=== PATIENT | female | born 1965 | race Caucasian/White ===

== ENCOUNTER 2016-10-07 16:35 | Inpatient (IN) | payer OTHER ==
[2016-07-07 12:12] VITALS: Ht 162.6 cm; Wt 104.3 kg
[~2016-10-07] VITALS: Ht 162.6 cm; Wt 104.3 kg
[~2016-10-07 16:35] MED LIST: AMIL5TAB9; AMIL5TAB9 PO; CLON0.5T4 PO; COLC0.6T67; COLC0.6T67 PO; COLCHINE; CYCL-10 PO; CYCL-365 PO; CYCLOBENZAPINE; CYM30; CYM30 PO; DULO60CA41; FENT1PAT4; FENT1PAT6 TD; FERR236T; HYDR-1189 PO; HYDR-4100 PO; IRON1CAP17; IRON1CAP18; LORA-259 PO; LORA1TAB; MAGN400T10 PO; MAGN84TA4 PO; METR500T PO; MULT-1117 PO; MUPI1OIN4; NORCO5; POTA10TA79 PO; POTA20PA PO; POTA20PA4; POTA20TA83; PRAV40TA PO; PRAV40TA63; PRO40 PO; RANI-281 PO; SACC250C3 PO; SPIR25TA PO; SPIR50TA26 PO; TEMA30CA5 PO; VANC125C10 PO; VITD400 PO
[2016-10-07 16:37] VITALS: BP 121/80; PULSE 122; RESP 16; TEMP 97.8; O2SAT 98
[2016-10-07 17:51] LABS: MEAN CORPUSCULAR HEMOGLOBIN 28 pg (27-31); MEAN CORPUSCULAR HGB CONC 33 % (32-36); WHITE BLOOD COUNT (AUTO) 16.8 K/uL (4.8-10.8)
[2016-10-07 17:54] LABS: BASOPHILS # (AUTO) 0.4 K/uL (0.0-0.2); BASOPHILS % (AUTO) 2.1 % (0.0-2.0); EOSINOPHILS % (AUTO) 0.2 % (0.0-4.0); HEMATOCRIT 48.7 % (36-48); HEMOGLOBIN 15.9 g/dL (12.0-16.0); LYMPHOCYTES # (AUTO) 2.8 K/uL (1.0-5.5); MEAN CORPUSCULAR VOLUME 87 fL (79.0-98.0); MONOCYTES # (AUTO) 0.5 K/uL (0.0-1.0); MONOCYTES % (AUTO) 2.9 % (1.7-9.3); NEUTROPHILS # (AUTO) 13.1 K/uL (1.8-7.7); NEUTROPHILS % (AUTO) 77.8 % (40.0-70.0); PLATELET COUNT (AUTO) 440 K/uL (130-430); RED BLOOD CELL COUNT(AUTO) 5.61 MIL/uL (4.2-6.2); RED CELL DISTRIBUTION WIDTH 13.8 % (9.0-15.0)
[2016-10-07 18:11] LABS: ALBUMIN 4.4 g/dL (3.4-4.8); CALCIUM 10.5 mg/dL (8.4-11.0); CREATININE 1.33 mg/dL (0.55-1.30); POTASSIUM 4.5 mmol/L (3.5-5.1); TOTAL BILIRUBIN 0.8 mg/dL (0.0-1.0); TOTAL PROTEIN, SERUM 9.1 g/dL (6.4-8.3)
[2016-10-07] MEDS ORDERED: MORPHINE 4 MG/ML INJ. SYRINGE IVP ONE (19:00)
[2016-10-07] MEDS ORDERED: DIPHENHYDRAMINE INJ 50 MG/ML VIAL IVP ONE (19:00)
[2016-10-07] MEDS ORDERED: MAGNESIUM SULFATE 50 ML IV ONE (19:00)
[2016-10-07] MEDS ORDERED: NACL 0.9% 1,000 ML IV ONE (19:00)
[2016-10-07 19:50] LABS: BLOOD, URINE NEGATIVE (NEGATIVE); CLARITY/URINE SL CLOUDY (CLEAR); COLOR,URINE YELLOW (YELLOW); GLUCOSE,URINE NEGATIVE (NEGATIVE); KETONES,URINE TRACE (NEGATIVE); LEUKOCYTE ESTERASE ,URINE TRACE (NEGATIVE); NITRITE, URINE NEGATIVE (NEGATIVE); PH,URINE 6.5 (5.0-8.0); PROTEIN URINE NEGATIVE (NEGATIVE); UROBILINOGEN,URINE 0.2 (0.2-1.0)
[2016-10-07 20:05] LABS: BILIRUBIN,URINE NEGATIVE (NEGATIVE)
[2016-10-07 20:10] LABS: BACTERIA,URINE MANY /HPF (None Seen); RBC,URINE NONE SEEN /HPF (0-3)
[2016-10-07 20:11] LABS: MUCUS,URINE 2+ /LPF (None Seen)
[2016-10-07 22:16] VITALS: BP 138/82; PULSE 105; RESP 18; TEMP 98.7; O2SAT 98
[2016-10-07] MEDS ORDERED: LACTOBACILLUS RHAMNOSUS GG 1 CAP CAPSULE PO ONE (22:30)
[2016-10-07] MEDS: LR 1,000 ML IV SCH ×2 (22:45→23:19)
[2016-10-07] MEDS ORDERED: MORP15TA PO (23:01)
[2016-10-07] MEDS ORDERED: cefTRIAXone 1 GM IVPB PREMIX 50 ML IV ONE (23:14)
[2016-10-07] MEDS: cefTRIAXone 1 GM IVPB PREMIX 50 ML IV SCH (23:19)
[2016-10-07] MEDS: MORPHINE 4 MG/ML INJ. SYRINGE IVP PRN (23:20)
[2016-10-07] MEDS: DIPHENHYDRAMINE INJ 50 MG/ML VIAL IVP PRN (23:20)
[2016-10-07 23:58] VITALS: BP 130/77; PULSE 105; RESP 18; TEMP 97.8; O2SAT 98
[2016-10-08 02:20] VITALS: BP 130/77; PULSE 105; RESP 18; TEMP 97.8; O2SAT 98
[2016-10-08] MEDS: MORPHINE 4 MG/ML INJ. SYRINGE IVP PRN ×5 (03:55→20:56)
[2016-10-08] MEDS: DIPHENHYDRAMINE INJ 50 MG/ML VIAL IVP PRN ×4 (03:55→20:57)
[2016-10-08 03:56] VITALS: BP 127/63; PULSE 87; RESP 18; TEMP 98.6; O2SAT 96
[2016-10-08 07:28] LABS: BASOPHILS # (AUTO) 0.1 K/uL (0.0-0.2); BASOPHILS % (AUTO) 0.7 % (0.0-2.0); EOSINOPHILS # (AUTO) 0.2 K/uL (0.0-0.4); EOSINOPHILS % (AUTO) 1.5 % (0.0-4.0); HEMATOCRIT 40.6 % (36-48); HEMOGLOBIN 13.5 g/dL (12.0-16.0); LYMPHOCYTES # (AUTO) 4.5 K/uL (1.0-5.5); LYMPHOCYTES % (AUTO) 31.3 % (20.5-51.5); MEAN CORPUSCULAR HEMOGLOBIN 28 pg (27-31); MEAN CORPUSCULAR HGB CONC 33 % (32-36); MEAN CORPUSCULAR VOLUME 85 fL (79.0-98.0); MONOCYTES # (AUTO) 0.8 K/uL (0.0-1.0); MONOCYTES % (AUTO) 5.3 % (1.7-9.3); NEUTROPHILS # (AUTO) 8.7 K/uL (1.8-7.7); NEUTROPHILS % (AUTO) 61.2 % (40.0-70.0); PLATELET COUNT (AUTO) 372 K/uL (130-430); RED BLOOD CELL COUNT(AUTO) 4.76 MIL/uL (4.2-6.2); RED CELL DISTRIBUTION WIDTH 13.8 % (9.0-15.0); WHITE BLOOD COUNT (AUTO) 14.3 K/uL (4.8-10.8)
[2016-10-08 07:38] LABS: ALBUMIN 3.5 g/dL (3.4-4.8); CALCIUM 8.8 mg/dL (8.4-11.0); CREATININE 1.19 mg/dL (0.55-1.30); TOTAL BILIRUBIN 0.7 mg/dL (0.0-1.0); TOTAL PROTEIN, SERUM 7.2 g/dL (6.4-8.3)
[2016-10-08] MEDS: LR 1,000 ML IV SCH ×3 (08:02→23:01)
[2016-10-08 08:22] LABS: POTASSIUM 2.8 mmol/L (3.5-5.1)
[2016-10-08 08:42] VITALS: BP 103/59; PULSE 91; RESP 19; TEMP 96.7; O2SAT 98
[2016-10-08] MEDS: LACTOBACILLUS RHAMNOSUS GG 1 CAP CAPSULE PO SCH ×3 (09:00→21:01)
[2016-10-08] MEDS ORDERED: KCL 40 mEq in 100 mL (PREMIX) 100 ML IV ONE (10:30)
[2016-10-08 12:40] VITALS: BP 116/62; PULSE 89; RESP 18; TEMP 98.1; O2SAT 99
[2016-10-08] MEDS ORDERED: POTASSIUM CHLORIDE 40 MEQ, LIDOCAINE JECT 2% PF 100 MG 50 MG in NS 250 ML IV ONE (13:30)
[2016-10-08] MEDS ORDERED: MAGNESIUM PO SCH (14:30)
[2016-10-08] MEDS ORDERED: SPIRONOLACTONE 25 MG TABLET (ALDACTONE) PO ONE (14:45)
[2016-10-08] MEDS ORDERED: CYCLOBENZAPRINE HCL 10 MG TABLET (FLEXERIL) PO ONE (14:45)
[2016-10-08] MEDS ORDERED: CHOLECALCIFEROL (VITAMIN D3) 2,000 UNIT TABLET PO ONE (14:45)
[2016-10-08] MEDS ORDERED: POTASSIUM CHLORIDE 10 MEQ TAB.PRT.SR PO ONE (14:45)
[2016-10-08] MEDS ORDERED: DULoxetine HCL 30 MG CAPSULE.DR (CYMBALTA) PO ONE (14:45)
[2016-10-08] MEDS ORDERED: LORazepam 1 MG TABLET PO ONE (14:45)
[2016-10-08] MEDS ORDERED: [UNRECOGNIZED DRUG - OTHER] IV ONE ×4 (15:00)
[2016-10-08] MEDS ORDERED: POTASSIUM CHLORIDE IV ONE ×4 (15:00)
[2016-10-08] MEDS ORDERED: MAGNESIUM SULFATE IV ONE ×4 (15:00)
[2016-10-08] MEDS: MULTIVITAMINS TAB 1 TABLET PO SCH ×2 (15:38→20:59)
[2016-10-08] MEDS: aMILoride HCL 5 MG TABLET PO SCH ×2 (15:55→22:57)
[2016-10-08 16:27] VITALS: BP 120/68; PULSE 80; RESP 18; TEMP 97.9; O2SAT 99
[2016-10-08] MEDS: POTASSIUM CHLORIDE 10 MEQ TAB.PRT.SR PO SCH ×2 (16:48→21:01)
[2016-10-08] MEDS ORDERED: FLUCONAZOLE 100 MG TABLET (DIFLUCAN) PO ONE (19:15)
[2016-10-08 19:45] VITALS: BP 103/61; PULSE 97; RESP 15; TEMP 98.6; O2SAT 97
[2016-10-08] MEDS: CHOLECALCIFEROL (VITAMIN D-3) 400 UNIT TABLET PO SCH (21:00)
[2016-10-08] MEDS: SPIRONOLACTONE 25 MG TABLET (ALDACTONE) PO SCH (21:02)
[2016-10-08] MEDS: cefTRIAXone 1 GM IVPB PREMIX 50 ML IV SCH (21:04)
[2016-10-08] MEDS: LORazepam 1 MG TABLET PO SCH (22:57)
[2016-10-08] MEDS: TEMAZEPAM 15 MG CAPSULE PO SCH (22:57)
[2016-10-09 00:41] VITALS: BP 103/68; PULSE 91; RESP 16; TEMP 97.3; O2SAT 98
[2016-10-09] MEDS: MORPHINE 4 MG/ML INJ. SYRINGE IVP PRN ×6 (01:08→21:58)
[2016-10-09] MEDS: DIPHENHYDRAMINE INJ 50 MG/ML VIAL IVP PRN ×6 (01:08→21:55)
[2016-10-09 04:19] VITALS: BP 104/68; PULSE 86; RESP 17; TEMP 96.7; O2SAT 98
[2016-10-09 07:26] LABS: BASOPHILS # (AUTO) 0.1 K/uL (0.0-0.2); BASOPHILS % (AUTO) 0.7 % (0.0-2.0); EOSINOPHILS # (AUTO) 0.2 K/uL (0.0-0.4); EOSINOPHILS % (AUTO) 2.4 % (0.0-4.0); HEMATOCRIT 35.5 % (36-48); HEMOGLOBIN 11.6 g/dL (12.0-16.0); LYMPHOCYTES # (AUTO) 3.6 K/uL (1.0-5.5); LYMPHOCYTES % (AUTO) 40.5 % (20.5-51.5); MEAN CORPUSCULAR HEMOGLOBIN 29 pg (27-31); MEAN CORPUSCULAR HGB CONC 33 % (32-36); MEAN CORPUSCULAR VOLUME 87 fL (79.0-98.0); MONOCYTES # (AUTO) 0.5 K/uL (0.0-1.0); MONOCYTES % (AUTO) 6.1 % (1.7-9.3); NEUTROPHILS # (AUTO) 4.5 K/uL (1.8-7.7); NEUTROPHILS % (AUTO) 50.3 % (40.0-70.0); PLATELET COUNT (AUTO) 313 K/uL (130-430); RED BLOOD CELL COUNT(AUTO) 4.08 MIL/uL (4.2-6.2); RED CELL DISTRIBUTION WIDTH 13.9 % (9.0-15.0); WHITE BLOOD COUNT (AUTO) 8.9 K/uL (4.8-10.8)
[2016-10-09 07:30] VITALS: BP 92/52; PULSE 76; RESP 18; TEMP 96.9; O2SAT 98
[2016-10-09 07:52] LABS: CALCIUM 8.4 mg/dL (8.4-11.0); CREATININE 0.9 mg/dL (0.55-1.30); PHOSPHORUS 3.4 mg/dL (2.7-4.5); TOTAL BILIRUBIN 0.3 mg/dL (0.0-1.0); TOTAL PROTEIN, SERUM 6.1 g/dL (6.4-8.3)
[2016-10-09] MEDS: LR 1,000 ML IV SCH ×3 (07:53→19:30)
[2016-10-09] MEDS: SPIRONOLACTONE 25 MG TABLET (ALDACTONE) PO SCH ×2 (09:00→21:00)
[2016-10-09] MEDS ORDERED: fentaNYL 50 MCG/HR PATCH TD SCH (09:00)
[2016-10-09] MEDS: CHOLECALCIFEROL (VITAMIN D-3) 400 UNIT TABLET PO SCH ×2 (09:00→21:00)
[2016-10-09] MEDS: aMILoride HCL 5 MG TABLET PO SCH ×2 (09:00→21:00)
[2016-10-09] MEDS: MULTIVITAMINS TAB 1 TABLET PO SCH ×3 (09:14→21:01)
[2016-10-09] MEDS: COLCHICINE 0.6 MG TABLET PO SCH (09:14)
[2016-10-09] MEDS: FLUCONAZOLE 100 MG TABLET (DIFLUCAN) PO SCH (09:15)
[2016-10-09] MEDS: CYCLOBENZAPRINE HCL 10 MG TABLET (FLEXERIL) PO SCH (09:15)
[2016-10-09] MEDS: DULoxetine HCL 30 MG CAPSULE.DR (CYMBALTA) PO SCH (09:17)
[2016-10-09] MEDS: POTASSIUM CHLORIDE 10 MEQ TAB.PRT.SR PO SCH ×4 (09:17→21:01)
[2016-10-09] MEDS: LACTOBACILLUS RHAMNOSUS GG 1 CAP CAPSULE PO SCH ×3 (09:17→21:03)
[2016-10-09] MEDS: LORazepam 1 MG TABLET PO SCH ×2 (09:18→21:02)
[2016-10-09 12:22] VITALS: BP 91/51; PULSE 85; RESP 19; TEMP 96.6; O2SAT 100
[2016-10-09 16:00] VITALS: BP 94/52; PULSE 68; RESP 17; TEMP 97; O2SAT 99
[2016-10-09] MEDS ORDERED: MAGNESIUM SULFATE 4 GM in D5W 250 ML IV ONE ×2 (17:15→21:15)
[2016-10-09 20:42] VITALS: BP 95/51; PULSE 83; RESP 17; TEMP 99.3; O2SAT 99
[2016-10-09] MEDS: TEMAZEPAM 15 MG CAPSULE PO SCH (21:03)
[2016-10-09] MEDS: cefTRIAXone 1 GM IVPB PREMIX 50 ML IV SCH (23:04)
[2016-10-10 00:19] VITALS: BP 96/53; PULSE 18; RESP 18; TEMP 98.3; O2SAT 96
[2016-10-10] MEDS: MORPHINE 4 MG/ML INJ. SYRINGE IVP PRN ×6 (01:47→21:52)
[2016-10-10] MEDS: DIPHENHYDRAMINE INJ 50 MG/ML VIAL IVP PRN ×6 (01:48→21:45)
[2016-10-10 04:20] VITALS: BP 101/65; PULSE 86; RESP 17; TEMP 98.3; O2SAT 99
[2016-10-10] MEDS: ONDANSETRON HCL 4 MG/2 ML VIAL IVP PRN ×4 (05:59→21:52)
[2016-10-10] MEDS: LR 1,000 ML IV SCH ×3 (06:00→21:49)
[2016-10-10 07:13] LABS: BASOPHILS # (AUTO) 0.1 K/uL (0.0-0.2); BASOPHILS % (AUTO) 0.8 % (0.0-2.0); EOSINOPHILS # (AUTO) 0.3 K/uL (0.0-0.4); EOSINOPHILS % (AUTO) 3.3 % (0.0-4.0); HEMOGLOBIN 11.4 g/dL (12.0-16.0); LYMPHOCYTES # (AUTO) 4.3 K/uL (1.0-5.5); LYMPHOCYTES % (AUTO) 42.4 % (20.5-51.5); MEAN CORPUSCULAR HEMOGLOBIN 28 pg (27-31); MEAN CORPUSCULAR HGB CONC 33 % (32-36); MEAN CORPUSCULAR VOLUME 86 fL (79.0-98.0); MONOCYTES # (AUTO) 0.8 K/uL (0.0-1.0); MONOCYTES % (AUTO) 7.6 % (1.7-9.3); NEUTROPHILS # (AUTO) 4.7 K/uL (1.8-7.7); NEUTROPHILS % (AUTO) 45.9 % (40.0-70.0); PLATELET COUNT (AUTO) 307 K/uL (130-430); RED BLOOD CELL COUNT(AUTO) 4.06 MIL/uL (4.2-6.2); RED CELL DISTRIBUTION WIDTH 13.8 % (9.0-15.0); WHITE BLOOD COUNT (AUTO) 10.3 K/uL (4.8-10.8)
[2016-10-10 07:31] LABS: CALCIUM 8.4 mg/dL (8.4-11.0); CREATININE 0.91 mg/dL (0.55-1.30); FREE T4 (FREE THYROXINE) 0.8 ng/dL (0.6-1.6); PHOSPHORUS 3.4 mg/dL (2.7-4.5); POTASSIUM 3.3 mmol/L (3.5-5.1); THYROID STIMULATING HORMONE 2.05 uIu/mL (0.34-4.82)
[2016-10-10] MEDS: POTASSIUM CHLORIDE 10 MEQ TAB.PRT.SR PO SCH ×4 (08:29→21:46)
[2016-10-10] MEDS: SPIRONOLACTONE 25 MG TABLET (ALDACTONE) PO SCH ×2 (08:29→21:48)
[2016-10-10] MEDS: FLUCONAZOLE 100 MG TABLET (DIFLUCAN) PO SCH (08:30)
[2016-10-10] MEDS: MULTIVITAMINS TAB 1 TABLET PO SCH ×3 (08:30→21:47)
[2016-10-10] MEDS: LACTOBACILLUS RHAMNOSUS GG 1 CAP CAPSULE PO SCH ×3 (08:30→21:46)
[2016-10-10] MEDS: DULoxetine HCL 30 MG CAPSULE.DR (CYMBALTA) PO SCH (08:30)
[2016-10-10] MEDS: COLCHICINE 0.6 MG TABLET PO SCH (08:30)
[2016-10-10] MEDS: CYCLOBENZAPRINE HCL 10 MG TABLET (FLEXERIL) PO SCH (08:31)
[2016-10-10] MEDS: LORazepam 1 MG TABLET PO SCH ×2 (08:31→21:47)
[2016-10-10 08:34] VITALS: BP 112/62; PULSE 87; RESP 14; TEMP 97; O2SAT 98
[2016-10-10] MEDS: aMILoride HCL 5 MG TABLET PO SCH ×2 (09:53→21:50)
[2016-10-10] MEDS ORDERED: CHOLECALCIFEROL (VITAMIN D3) 2,000 UNIT TABLET PO ONE (10:00)
[2016-10-10 12:36] VITALS: BP 111/52; PULSE 89; RESP 16; TEMP 96.4; O2SAT 96
[2016-10-10] MEDS: MAGNESIUM SULFATE IV SCH ×8 (17:08→21:45)
[2016-10-10] MEDS: [UNRECOGNIZED DRUG - OTHER] IV SCH ×8 (17:08→21:45)
[2016-10-10] MEDS: POTASSIUM CHLORIDE IV SCH ×8 (17:08→21:45)
[2016-10-10 17:30] VITALS: BP 104/47; PULSE 90; RESP 16; TEMP 96; O2SAT 97
[2016-10-10 20:50] VITALS: BP 103/68; PULSE 81; RESP 16; TEMP 97.5; O2SAT 96
[2016-10-10] MEDS: TEMAZEPAM 15 MG CAPSULE PO SCH (21:46)
[2016-10-10] MEDS: CHOLECALCIFEROL (VITAMIN D3) 2,000 UNIT TABLET PO SCH (21:47)
[2016-10-10] MEDS: cefTRIAXone 1 GM IVPB PREMIX 50 ML IV SCH (21:51)
[2016-10-11 00:29] VITALS: BP 122/72; PULSE 88; RESP 22; TEMP 97.6; O2SAT 98
[2016-10-11] MEDS: ONDANSETRON HCL 4 MG/2 ML VIAL IVP PRN ×5 (01:45→20:58)
[2016-10-11] MEDS: MORPHINE 4 MG/ML INJ. SYRINGE IVP PRN ×5 (01:46→21:00)
[2016-10-11] MEDS: DIPHENHYDRAMINE INJ 50 MG/ML VIAL IVP PRN ×4 (04:01→20:59)
[2016-10-11 06:27] VITALS: BP 118/68; PULSE 70; RESP 20; TEMP 97.9; O2SAT 98
[2016-10-11 07:57] VITALS: BP 116/78; PULSE 77; RESP 20; TEMP 97.2; O2SAT 97
[2016-10-11 08:22] LABS: ALBUMIN 3.3 g/dL (3.4-4.8); CALCIUM 8.7 mg/dL (8.4-11.0); CREATININE 0.96 mg/dL (0.55-1.30); POTASSIUM 4.9 mmol/L (3.5-5.1); TOTAL BILIRUBIN 0.2 mg/dL (0.0-1.0); TOTAL PROTEIN, SERUM 6.1 g/dL (6.4-8.3)
[2016-10-11] MEDS: LR 1,000 ML IV SCH ×3 (09:42→17:37)
[2016-10-11] MEDS: CYCLOBENZAPRINE HCL 10 MG TABLET (FLEXERIL) PO SCH (09:43)
[2016-10-11] MEDS: POTASSIUM CHLORIDE 10 MEQ TAB.PRT.SR PO SCH ×4 (09:43→21:01)
[2016-10-11] MEDS: MULTIVITAMINS TAB 1 TABLET PO SCH ×3 (09:43→21:00)
[2016-10-11] MEDS: LACTOBACILLUS RHAMNOSUS GG 1 CAP CAPSULE PO SCH ×3 (09:43→21:01)
[2016-10-11] MEDS: FLUCONAZOLE 100 MG TABLET (DIFLUCAN) PO SCH (09:44)
[2016-10-11] MEDS: COLCHICINE 0.6 MG TABLET PO SCH (09:44)
[2016-10-11] MEDS: SPIRONOLACTONE 25 MG TABLET (ALDACTONE) PO SCH ×2 (09:44→21:00)
[2016-10-11] MEDS: DULoxetine HCL 30 MG CAPSULE.DR (CYMBALTA) PO SCH (09:44)
[2016-10-11] MEDS: CHOLECALCIFEROL (VITAMIN D3) 2,000 UNIT TABLET PO SCH ×2 (09:44→21:01)
[2016-10-11] MEDS: LORazepam 1 MG TABLET PO SCH ×2 (09:45→21:00)
[2016-10-11] MEDS: aMILoride HCL 5 MG TABLET PO SCH ×2 (09:53→21:01)
[2016-10-11 12:00] VITALS: BP 111/80; PULSE 90; RESP 20; TEMP 98.8; O2SAT 98
[2016-10-11] MEDS ORDERED: MAGNESIUM SULFATE IN WATER 100 ML IV ONE (17:00)
[2016-10-11] MEDS ORDERED: CYANOCOBALAMIN 1000 MCG/ML VIAL IM ONE (17:15)
[2016-10-11 19:39] VITALS: BP 117/62; PULSE 68; RESP 18; TEMP 98.2; O2SAT 97
[2016-10-11] MEDS: TEMAZEPAM 15 MG CAPSULE PO SCH (20:59)
== END 2016-10-11 21:20 | disposition home or self-care (01) | DRG 872 ==
LOC: SED 16:35 → SMU 21:44
PROVIDERS: ADMIT Internal Medicine; ATTEND Internal Medicine
DX: A41.9 Sepsis, unspecified organism (principal); N39.0 Urinary tract infection, site not specified; E66.9 Obesity, unspecified; E83.42 Hypomagnesemia; E86.0 Dehydration; E87.6 Hypokalemia; F32.9 Major depressive disorder, single episode, unspecified; F41.9 Anxiety disorder, unspecified; I10 Essential (primary) hypertension; M79.7 Fibromyalgia; R48.8 Other symbolic dysfunctions; Z88.0 Allergy status to penicillin; Z88.8 Allergy status to other drugs, medicaments and biological substances; Z91.018 Allergy to other foods; Z79.899 Other long term (current) drug therapy; Z68.39 Body mass index [BMI] 39.0-39.9, adult
CPT/HCPCS: 36415; 80048; 80053; 80061; 81000-TC; 81025; 83605; 83735-TC; 84100-TC; 84439; 84443-TC; 85025; 86710; 87040-TC; 87086; 96365; 96375; 99285; J0696; J1200; J2270; J2405; J3420; J3475; J3480; J7030; J7050; J7060; J7120

== ENCOUNTER 2016-10-20 16:08 | Emergency (ER) | payer OTHER ==
[2016-07-07 12:12] VITALS: Ht 162.6 cm; Wt 104.3 kg
[~2016-10-20] VITALS: Ht 162.6 cm; Wt 104.3 kg
[~2016-10-20 16:08] MED LIST changes: +MORP15TA PO
--- NOTE | 2016-10-20 16:10 | NUR ---
NOTIFIED CHARGE NURSE HAKAN FOR TRIAGE.
[2016-10-20 16:30] LABS: BASOPHILS # (AUTO) 0.1 K/uL (0.0-0.2); BASOPHILS % (AUTO) 1.1 % (0.0-2.0); EOSINOPHILS # (AUTO) 0.2 K/uL (0.0-0.4); HEMATOCRIT 41.9 % (36-48); HEMOGLOBIN 13.7 g/dL (12.0-16.0); LYMPHOCYTES # (AUTO) 2.9 K/uL (1.0-5.5); LYMPHOCYTES % (AUTO) 26.8 % (20.5-51.5); MEAN CORPUSCULAR HEMOGLOBIN 28 pg (27-31); MEAN CORPUSCULAR HGB CONC 33 % (32-36); MEAN CORPUSCULAR VOLUME 86 fL (79.0-98.0); MONOCYTES # (AUTO) 0.3 K/uL (0.0-1.0); MONOCYTES % (AUTO) 3.2 % (1.7-9.3); NEUTROPHILS # (AUTO) 7.4 K/uL (1.8-7.7); NEUTROPHILS % (AUTO) 66.9 % (40.0-70.0); PLATELET COUNT (AUTO) 337 K/uL (130-430); RED BLOOD CELL COUNT(AUTO) 4.87 MIL/uL (4.2-6.2); WHITE BLOOD COUNT (AUTO) 10.9 K/uL (4.8-10.8)
[2016-10-20 16:51] LABS: CALCIUM 9.6 mg/dL (8.4-11.0); CREATININE 0.9 mg/dL (0.55-1.30); POTASSIUM 4.1 mmol/L (3.5-5.1)
[2016-10-20 16:55] LABS: PHOSPHORUS 3.3 mg/dL (2.7-4.5); TOTAL BILIRUBIN 0.6 mg/dL (0.0-1.0); TOTAL PROTEIN, SERUM 8.1 g/dL (6.4-8.3)
--- NOTE | 2016-10-20 17:00 | NUR ---
Patient to ER bed H1 to gown for evaluation. Side rails up.
[2016-10-20 17:01] VITALS: BP 115/75; PULSE 100; RESP 18; TEMP 98.3; O2SAT 94
--- NOTE | 2016-10-20 17:05 | NUR ---
Pt brought by self, A&Ox4, pt c/o generalized weakness, leg cramping, VSS, per pt she was sent by Dr Mota due to abn labs, cap refill <3, denies chest pain, denies N/V
--- NOTE | 2016-10-20 17:17 | NUR ---
Dr Barber at bedside examining patient
[2016-10-20 17:27] LABS: BILIRUBIN,URINE NEGATIVE (NEGATIVE); BLOOD, URINE NEGATIVE (NEGATIVE); CLARITY/URINE CLEAR (CLEAR); COLOR,URINE YELLOW (YELLOW); GLUCOSE,URINE NEGATIVE (NEGATIVE); KETONES,URINE NEGATIVE (NEGATIVE); LEUKOCYTE ESTERASE ,URINE NEGATIVE (NEGATIVE); NITRITE, URINE NEGATIVE (NEGATIVE); PROTEIN URINE NEGATIVE (NEGATIVE); UROBILINOGEN,URINE 0.2 (0.2-1.0)
[2016-10-20] MEDS ORDERED: MORPHINE 4 MG/ML INJ. SYRINGE IVP ONE ×2 (17:30→21:45)
[2016-10-20] MEDS ORDERED: MAGNESIUM SULFATE 50 ML IV ONE (17:30)
[2016-10-20] MEDS ORDERED: DIPHENHYDRAMINE INJ 50 MG/ML VIAL IVP ONE ×3 (17:30→22:00)
[2016-10-20] MEDS ORDERED: MAGNESIUM SULFATE 4 GM in D5W 250 ML IV ONE (17:30)
--- NOTE | 2016-10-20 20:23 | NUR ---
Pt on stable condition, VSS, PT denie pain or discomfort at this time.
--- NOTE | 2016-10-20 20:45 | NUR ---
Pt requested something to eat, sandwich and cranberry juice given to patient
[2016-10-20 23:20] VITALS: BP 125/60; PULSE 100; RESP 18; TEMP 98.3; O2SAT 94
--- NOTE | 2016-10-20 23:20 | NUR ---
Patient given written and verbal discharge instructions and verbalizes understanding. ER MD discussed with patient the results and treatment provided. Patient in stable condition. No acute distress or SOB noted upon discharge. ID arm band removed. IV catheter removed intact and dressing applied, no active bleeding. Opportunity for questions provided and answered.
== END 2016-10-20 23:20 | disposition home or self-care (01) ==
LOC: SED 16:08
DX: E83.42 Hypomagnesemia (principal); I10 Essential (primary) hypertension; M10.9 Gout, unspecified; Z88.0 Allergy status to penicillin; Z91.018 Allergy to other foods
CPT/HCPCS: 36415; 80053; 81003; 83735; 84100; 84703; 85025; 96374; 96375; 96376; 99284; J1200; J2270; J3475; J7060

== ENCOUNTER 2016-10-29 19:54 | Emergency (ER) | payer OTHER ==
[2016-07-07 12:12] VITALS: Ht 162.6 cm; Wt 104.3 kg
[~2016-10-29] VITALS: Ht 162.6 cm; Wt 104.3 kg
[2016-10-29 20:24] VITALS: BP 115/73; PULSE 111; RESP 16; TEMP 98; O2SAT 95
[2016-10-29] MEDS ORDERED: KETOROLAC TROMETHAMINE 30 MG VIAL IVP ONE (22:30)
[2016-10-29] MEDS ORDERED: NACL 0.9% 1,000 ML IV ONE (22:30)
[2016-10-29 22:44] LABS: BILIRUBIN,URINE NEGATIVE (NEGATIVE); BLOOD, URINE NEGATIVE (NEGATIVE); CLARITY/URINE CLEAR (CLEAR); COLOR,URINE YELLOW (YELLOW); GLUCOSE,URINE NEGATIVE (NEGATIVE); KETONES,URINE NEGATIVE (NEGATIVE); LEUKOCYTE ESTERASE ,URINE NEGATIVE (NEGATIVE); NITRITE, URINE NEGATIVE (NEGATIVE); PH,URINE 6.5 (5.0-8.0); PROTEIN URINE NEGATIVE (NEGATIVE); UROBILINOGEN,URINE 0.2 (0.2-1.0)
[2016-10-29] MEDS ORDERED: MAGNESIUM SULFATE 50 ML IV ONE (22:45)
[2016-10-29] MEDS ORDERED: DIPHENHYDRAMINE INJ 50 MG/ML VIAL IVP ONE (22:45)
[2016-10-29 22:54] LABS: BASOPHILS # (AUTO) 0.2 K/uL (0.0-0.2); BASOPHILS % (AUTO) 1.7 % (0.0-2.0); EOSINOPHILS # (AUTO) 0.3 K/uL (0.0-0.4); EOSINOPHILS % (AUTO) 2.5 % (0.0-4.0); HEMATOCRIT 38.6 % (36-48); HEMOGLOBIN 12.9 g/dL (12.0-16.0); LYMPHOCYTES # (AUTO) 3.7 K/uL (1.0-5.5); LYMPHOCYTES % (AUTO) 31.6 % (20.5-51.5); MEAN CORPUSCULAR HEMOGLOBIN 28 pg (27-31); MEAN CORPUSCULAR HGB CONC 33 % (32-36); MEAN CORPUSCULAR VOLUME 85 fL (79.0-98.0); MONOCYTES # (AUTO) 0.9 K/uL (0.0-1.0); MONOCYTES % (AUTO) 7.4 % (1.7-9.3); NEUTROPHILS # (AUTO) 6.5 K/uL (1.8-7.7); NEUTROPHILS % (AUTO) 56.8 % (40.0-70.0); PLATELET COUNT (AUTO) 353 K/uL (130-430); RED BLOOD CELL COUNT(AUTO) 4.53 MIL/uL (4.2-6.2); WHITE BLOOD COUNT (AUTO) 11.6 K/uL (4.8-10.8)
[2016-10-29 23:01] LABS: CALCIUM 9.1 mg/dL (8.4-11.0); CREATININE 1.11 mg/dL (0.55-1.30); POTASSIUM 4.6 mmol/L (3.5-5.1)
[2016-10-29 23:05] LABS: TOTAL BILIRUBIN 0.3 mg/dL (0.0-1.0); URIC ACID 5.3 mg/dL (2.4-7.0)
[2016-10-29] MEDS ORDERED: MORP15TA PO (23:16)
[2016-10-29] MEDS ORDERED: COLC0.6T67 PO (23:18)
[2016-10-29 23:31] LABS: ERYTHROCYTE SEDIMENTATION RATE 19 MM/HR (0-20)
[2016-10-30 02:24] VITALS: BP 124/68; PULSE 104; RESP 16; TEMP 98; O2SAT 95
== END 2016-10-30 00:20 | disposition home or self-care (01) ==
LOC: SED 20:00
DX: G89.4 Chronic pain syndrome (principal); M25.562 Pain in left knee; M25.561 Pain in right knee; E83.42 Hypomagnesemia; R48.8 Other symbolic dysfunctions; I10 Essential (primary) hypertension; M10.9 Gout, unspecified; Z88.0 Allergy status to penicillin; Z91.02 Food additives allergy status; Z79.899 Other long term (current) drug therapy
CPT/HCPCS: 36415; 80053; 81003; 83735; 84550; 85025; 85651; 96365; 96375; 99284; J1200; J1885; J3475; J7030

== ENCOUNTER 2016-11-07 21:45 | Emergency (ER) | payer OTHER ==
[2016-07-07 12:12] VITALS: Ht 162.6 cm; Wt 106.6 kg
[~2016-11-07] VITALS: Ht 162.6 cm; Wt 106.6 kg
[2016-11-07 21:50] VITALS: BP 149/77; PULSE 109; RESP 16; TEMP 97.7; O2SAT 97
--- NOTE | 2016-11-07 21:50 | NUR ---
Patient triaged and placed in waiting room. VSS and patient appears in no acute distress at this time. Accompanied by self, awaiting available bed, and MD notified of need for MSE.
--- NOTE | 2016-11-08 | NUR ---
Patient to ER bed 4 to gown for evaluation. Side rails up.
--- NOTE | 2016-11-08 00:01 | NUR ---
PT IS AOX 4, C/O BOTH LOWER LEG PAIN WITH PAIN LEVEL OF 9/10. PER PT, THAT HER LEGS IS CRAMPING.
--- NOTE | 2016-11-08 00:10 | NUR ---
ER at bedside examining patient.
[2016-11-08] MEDS ORDERED: NACL 0.9% 1,000 ML IV ONE (00:27)
[2016-11-08] MEDS ORDERED: MORPHINE 4 MG/ML INJ. SYRINGE IVP ONE ×3 (00:30→02:15)
[2016-11-08] MEDS ORDERED: ONDANSETRON HCL 4 MG/2 ML VIAL IVP ONE (00:30)
[2016-11-08] MEDS ORDERED: DIPHENHYDRAMINE INJ 50 MG/ML VIAL IVP ONE (00:30)
[2016-11-08 00:57] LABS: BASOPHILS # (AUTO) 0.2 K/uL (0.0-0.2); BASOPHILS % (AUTO) 1.2 % (0.0-2.0); EOSINOPHILS # (AUTO) 0.3 K/uL (0.0-0.4); EOSINOPHILS % (AUTO) 2.6 % (0.0-4.0); HEMATOCRIT 37.8 % (36-48); HEMOGLOBIN 12.6 g/dL (12.0-16.0); LYMPHOCYTES # (AUTO) 3.9 K/uL (1.0-5.5); LYMPHOCYTES % (AUTO) 30.6 % (20.5-51.5); MEAN CORPUSCULAR HEMOGLOBIN 29 pg (27-31); MEAN CORPUSCULAR HGB CONC 34 % (32-36); MEAN CORPUSCULAR VOLUME 86 fL (79.0-98.0); MONOCYTES # (AUTO) 0.7 K/uL (0.0-1.0); MONOCYTES % (AUTO) 5.6 % (1.7-9.3); NEUTROPHILS # (AUTO) 7.7 K/uL (1.8-7.7); PLATELET COUNT (AUTO) 321 K/uL (130-430); RED BLOOD CELL COUNT(AUTO) 4.42 MIL/uL (4.2-6.2); WHITE BLOOD COUNT (AUTO) 12.8 K/uL (4.8-10.8)
[2016-11-08 01:23] LABS: CALCIUM 8.7 mg/dL (8.4-11.0); CREATININE 0.93 mg/dL (0.55-1.30); POTASSIUM 4.1 mmol/L (3.5-5.1)
[2016-11-08 01:27] LABS: ALBUMIN 3.7 g/dL (3.4-4.8); TOTAL BILIRUBIN 0.3 mg/dL (0.0-1.0); TOTAL PROTEIN, SERUM 7.2 g/dL (6.4-8.3)
[2016-11-08 02:40] VITALS: BP 132/64; PULSE 86; RESP 18; TEMP 97.7; O2SAT 97
--- NOTE | 2016-11-08 02:40 | NUR ---
Patient given written and verbal discharge instructions and verbalizes understanding. ER MD discussed with patient the results and treatment provided. Patient in stable condition. ID arm band removed. IV catheter removed intact and dressing applied, no active bleeding. Rx of BENADRYL ALLERGY 25 MG LIQUI-GEL CAPSULE given. Patient educated on pain management and to follow up with PMD. Pain Scale 0/10. Opportunity for questions provided and answered.
[2016-11-08 03:18] LABS: BILIRUBIN,URINE NEGATIVE (NEGATIVE); BLOOD, URINE NEGATIVE (NEGATIVE); CLARITY/URINE CLEAR (CLEAR); COLOR,URINE YELLOW (YELLOW); GLUCOSE,URINE NEGATIVE (NEGATIVE); KETONES,URINE NEGATIVE (NEGATIVE); LEUKOCYTE ESTERASE ,URINE NEGATIVE (NEGATIVE); NITRITE, URINE NEGATIVE (NEGATIVE); PH,URINE 5.5 (5.0-8.0); PROTEIN URINE NEGATIVE (NEGATIVE); UROBILINOGEN,URINE 0.2 (0.2-1.0)
== END 2016-11-08 02:40 | disposition home or self-care (01) ==
LOC: SED 21:45
DX: R25.2 Cramp and spasm (principal); R48.8 Other symbolic dysfunctions; I10 Essential (primary) hypertension; J44.9 Chronic obstructive pulmonary disease, unspecified; M10.9 Gout, unspecified; Z88.0 Allergy status to penicillin; Z91.02 Food additives allergy status; Z79.899 Other long term (current) drug therapy
CPT/HCPCS: 36415; 80053; 81003; 83735; 85025; 96365; 96375; 99284; J1200; J2270; J2405; J7030; 96361

== ENCOUNTER 2016-11-16 20:26 | Emergency (ER) | payer OTHER ==
[~2016-11-16] VITALS: Ht 162.6 cm; Wt 108.9 kg
[2016-11-16 20:26] VITALS: BP_SYST 121
[~2016-11-16 20:26] MED LIST changes: -AMIL5TAB9; -CLON0.5T4 PO; -COLC0.6T67; -COLCHINE; -CYCL-10 PO; -CYCLOBENZAPINE; -CYM30; -DULO60CA41; -FENT1PAT4; -FERR236T; -HYDR-1189 PO; -HYDR-4100 PO; -IRON1CAP18; -LORA1TAB; -MAGN400T10 PO; -METR500T PO; -MUPI1OIN4; -NORCO5; -POTA20PA PO; -POTA20PA4; -POTA20TA83; -PRAV40TA PO; -PRAV40TA63; -PRO40 PO; -SPIR25TA PO; -VANC125C10 PO
--- NOTE | 2016-11-16 20:42 | NUR ---
Patient to ER bed 4 to gown for evaluation. Side rails up. Report given to FILIBERTO HUNG.
--- NOTE | 2016-11-16 20:50 | NUR ---
Pt presents to ED with c/o bilateral lower legs pain 02/14, spasm r/t gittleman syndrome per pt. Pt stated that she fell and hurted her legs a few days ago. ROM present at BLE, pedal pulse WNL, pt ambulatory. A&Ox4, denies SOB or chestpain, denies N/V/D. Will continue to monitor
--- NOTE | 2016-11-16 21:53 | NUR ---
MD chacon at bedside examining pt
[2016-11-16] MEDS ORDERED: NACL 0.9% 1,000 ML IV ONE (21:57)
[2016-11-16] MEDS ORDERED: DIPHENHYDRAMINE INJ 50 MG/ML VIAL IVP ONE ×2 (22:00→23:15)
[2016-11-16] MEDS ORDERED: MAGNESIUM SULFATE 1 GM/2 ML VIAL IVP ONE (22:00)
[2016-11-16] MEDS ORDERED: MORPHINE 4 MG/ML INJ. SYRINGE IVP ONE ×2 (22:00→23:15)
[2016-11-16 22:08] LABS: BILIRUBIN,URINE NEGATIVE (NEGATIVE); BLOOD, URINE NEGATIVE (NEGATIVE); CLARITY/URINE CLEAR (CLEAR); COLOR,URINE YELLOW (YELLOW); GLUCOSE,URINE NEGATIVE (NEGATIVE); KETONES,URINE NEGATIVE (NEGATIVE); LEUKOCYTE ESTERASE ,URINE NEGATIVE (NEGATIVE); NITRITE, URINE NEGATIVE (NEGATIVE); PH,URINE 5.5 (5.0-8.0); PROTEIN URINE NEGATIVE (NEGATIVE); UROBILINOGEN,URINE 0.2 (0.2-1.0)
[2016-11-16 22:29] LABS: BASOPHILS # (AUTO) 0.1 K/uL (0.0-0.2); BASOPHILS % (AUTO) 0.9 % (0.0-2.0); EOSINOPHILS # (AUTO) 0.3 K/uL (0.0-0.4); EOSINOPHILS % (AUTO) 2.6 % (0.0-4.0); HEMATOCRIT 36.1 % (36-48); HEMOGLOBIN 12.3 g/dL (12.0-16.0); LYMPHOCYTES # (AUTO) 3.6 K/uL (1.0-5.5); MEAN CORPUSCULAR HEMOGLOBIN 29 pg (27-31); MEAN CORPUSCULAR HGB CONC 34 % (32-36); MEAN CORPUSCULAR VOLUME 84 fL (79.0-98.0); MONOCYTES # (AUTO) 0.7 K/uL (0.0-1.0); MONOCYTES % (AUTO) 6.4 % (1.7-9.3); NEUTROPHILS # (AUTO) 6.1 K/uL (1.8-7.7); NEUTROPHILS % (AUTO) 57.1 % (40.0-70.0); PLATELET COUNT (AUTO) 333 K/uL (130-430); RED BLOOD CELL COUNT(AUTO) 4.29 MIL/uL (4.2-6.2); WHITE BLOOD COUNT (AUTO) 10.8 K/uL (4.8-10.8)
[2016-11-16 22:53] LABS: CALCIUM 8.7 mg/dL (8.4-11.0); CREATININE 1.04 mg/dL (0.55-1.30); POTASSIUM 3.4 mmol/L (3.5-5.1)
--- NOTE | 2016-11-16 23:00 | NUR ---
Pt in bed appeared resting comfortably. No c/o distress
[2016-11-16 23:03] LABS: ALBUMIN 3.6 g/dL (3.4-4.8); TOTAL BILIRUBIN 0.3 mg/dL (0.0-1.0); TOTAL PROTEIN, SERUM 7.1 g/dL (6.4-8.3)
[2016-11-16] MEDS ORDERED: POTASSIUM CHLORIDE 20 MEQ TAB.PRT.SR PO ONE (23:45)
--- NOTE | 2016-11-17 00:15 | NUR ---
Pt stated she feels comfortable, pain 0/10
[2016-11-17 00:42] VITALS: BP_SYST 116
--- NOTE | 2016-11-17 00:42 | NUR ---
Patient given written and verbal discharge instructions and verbalizes understanding. ER MD Stephens discussed with patient the results and treatment provided. Patient in stable condition. ID arm band removed. IV catheter removed intact and dressing applied, no active bleeding. No Rx given. Patient educated on pain management and to follow up with PMD. Pain Scale 0/10. Opportunity for questions provided and answered.
== END 2016-11-17 00:42 | disposition home or self-care (01) ==
LOC: SED 20:26
DX: N25.89 Other disorders resulting from impaired renal tubular function (principal); J44.9 Chronic obstructive pulmonary disease, unspecified; I10 Essential (primary) hypertension; M10.9 Gout, unspecified; Z88.0 Allergy status to penicillin; Z91.018 Allergy to other foods
CPT/HCPCS: 36415; 80053; 81003; 83735; 85025; 96365; 96366; 96375; 96376; 99285; J1200; J2270; J3475; J7030; 99284

== ENCOUNTER 2016-11-24 15:38 | Emergency (ER) | payer OTHER ==
[2016-07-07 12:12] VITALS: Ht 162.6 cm; Wt 108.9 kg
[~2016-11-24] VITALS: Ht 162.6 cm; Wt 108.9 kg
[~2016-11-24 15:38] MED LIST changes: +AMIL5TAB9; +CLON0.5T4 PO; +COLC0.6T67; +COLCHINE; +CYCL-10 PO; +CYCLOBENZAPINE; +CYM30; +DULO60CA41; +FENT1PAT4; +FERR236T; +HYDR-1189 PO; +HYDR-4100 PO; +IRON1CAP18; +LORA1TAB; +MAGN400T10 PO; +METR500T PO; +MUPI1OIN4; +NORCO5; +POTA20PA PO; +POTA20PA4; +POTA20TA83; +PRAV40TA PO; +PRAV40TA63; +PRO40 PO; +SPIR25TA PO; +VANC125C10 PO
[2016-11-24 15:58] VITALS: BP 111/56; PULSE 115; RESP 16; TEMP 97; O2SAT 98
[2016-11-24 16:24] LABS: BASOPHILS # (AUTO) 0.1 K/uL (0.0-0.2); BASOPHILS % (AUTO) 0.9 % (0.0-2.0); EOSINOPHILS # (AUTO) 0.2 K/uL (0.0-0.4); EOSINOPHILS % (AUTO) 2.1 % (0.0-4.0); HEMATOCRIT 41.6 % (36-48); HEMOGLOBIN 13.5 g/dL (12.0-16.0); LYMPHOCYTES # (AUTO) 2.4 K/uL (1.0-5.5); LYMPHOCYTES % (AUTO) 21.1 % (20.5-51.5); MEAN CORPUSCULAR HEMOGLOBIN 28 pg (27-31); MEAN CORPUSCULAR HGB CONC 33 % (32-36); MEAN CORPUSCULAR VOLUME 86 fL (79.0-98.0); MONOCYTES # (AUTO) 0.4 K/uL (0.0-1.0); MONOCYTES % (AUTO) 3.3 % (1.7-9.3); NEUTROPHILS # (AUTO) 8.3 K/uL (1.8-7.7); NEUTROPHILS % (AUTO) 72.6 % (40.0-70.0); PLATELET COUNT (AUTO) 373 K/uL (130-430); RED BLOOD CELL COUNT(AUTO) 4.86 MIL/uL (4.2-6.2); WHITE BLOOD COUNT (AUTO) 11.4 K/uL (4.8-10.8)
[2016-11-24 16:39] LABS: CALCIUM 9.5 mg/dL (8.4-11.0); CREATININE 1.22 mg/dL (0.55-1.30); POTASSIUM 4.2 mmol/L (3.5-5.1)
[2016-11-24 16:42] LABS: PHOSPHORUS 2.8 mg/dL (2.7-4.5)
--- NOTE | 2016-11-24 17:01 | NUR ---
Patient to ER bed 1 to gown for evaluation. Side rails up. Report given to Ry HUNG.
--- NOTE | 2016-11-24 17:15 | NUR ---
ER at bedside examining patient.
--- NOTE | 2016-11-24 17:25 | NUR ---
Pt presents to Ed c/o bilateral foot pain.Pt h/o chronic pain worsensing since last noted.
[2016-11-24] MEDS ORDERED: HYDROmorphone 1 MG INJ. 1 MG/ML AMPUL IM ONE (17:30)
[2016-11-24] MEDS ORDERED: DIPHENHYDRAMINE INJ 50 MG/ML VIAL IM ONE (17:30)
[2016-11-24 17:35] LABS: BARBITURATE, URINE NEGATIVE (NEG <=200); BENZODIAZEPINE, URINE POSITIVE (NEG <=150); CANNABINOID, URINE NEGATIVE (NEG <=50); COCAINE, URINE NEGATIVE (NEG <=150); METHAMPHETAMINES SCREEN,URINE NEGATIVE (NEG <=500); OPIATE, URINE POSITIVE (NEG <=100); PHENCYCLIDINE SCREEN,URINE NEGATIVE (NEG <=25); UR TRICYCLIC ANTIDEPRESSANTS NEGATIVE (NEG <=300); URINE AMPHETAMINE NEGATIVE (NEG <=500); URINE METHADONE NEGATIVE (NEG <=200); URINE OXYCODONE SCREEN NEGATIVE (NEG <=100); URINE PROPOXYPHENE SCREEN NEGATIVE (NEG <=300)
--- NOTE | 2016-11-24 17:40 | NUR ---
changed route of administration.Pt given medication IM tolerated well.
[2016-11-24 17:56] LABS: BILIRUBIN,URINE NEGATIVE (NEGATIVE); BLOOD, URINE NEGATIVE (NEGATIVE); CLARITY/URINE CLEAR (CLEAR); COLOR,URINE YELLOW (YELLOW); GLUCOSE,URINE NEGATIVE (NEGATIVE); KETONES,URINE NEGATIVE (NEGATIVE); LEUKOCYTE ESTERASE ,URINE NEGATIVE (NEGATIVE); NITRITE, URINE NEGATIVE (NEGATIVE); PROTEIN URINE NEGATIVE (NEGATIVE); UROBILINOGEN,URINE 0.2 (0.2-1.0)
[2016-11-24 18:05] VITALS: BP 111/56; PULSE 105; RESP 16; TEMP 97; O2SAT 98
--- NOTE | 2016-11-24 18:05 | NUR ---
Patient given written and verbal discharge instructions and verbalizes understanding. ER MD discussed with patient the results and treatment provided. Patient in stable condition. ID arm band removed. Patient educated on pain management and to follow up with PMD. Pain Scale 0/10. Opportunity for questions provided and answered.
== END 2016-11-24 18:05 | disposition home or self-care (01) ==
LOC: SED 15:38
DX: R25.2 Cramp and spasm (principal); R48.8 Other symbolic dysfunctions; I10 Essential (primary) hypertension; J44.9 Chronic obstructive pulmonary disease, unspecified; Z88.0 Allergy status to penicillin; Z91.02 Food additives allergy status
CPT/HCPCS: 36415; 80048; 80307; 81003; 83735; 84100; 85025; 96372; 99284; J1170; J1200

== ENCOUNTER 2016-12-05 17:18 | Emergency (ER) | payer OTHER ==
[2016-07-07 12:12] VITALS: Ht 162.6 cm; Wt 108.9 kg
[~2016-12-05] VITALS: Ht 162.6 cm; Wt 108.9 kg
[2016-12-05 17:23] VITALS: BP 100/74; PULSE 113; RESP 18; TEMP 97.1; O2SAT 98
--- NOTE | 2016-12-05 17:29 | NUR ---
PT. PLACED IN ROOM 8 ASSUMED PT. CARE
--- NOTE | 2016-12-05 17:30 | NUR ---
PT. TO ER AAOx4 FOR RIGHT FLANK PAIN AND BILATERAL LEG PAIN, STATES SHE COMES IN FOR HER PAIN MANAGEMENT, PAIN AT THIS TIME 03/16, DENIES SOB, DENIES N/V/D DENIES CP DENIES HEADACHE, ON CNA CAREGIVER FAMILY AT BEDSIDE
[2016-12-05 17:43] LABS: BILIRUBIN,URINE NEGATIVE (NEGATIVE); BLOOD, URINE NEGATIVE (NEGATIVE); CLARITY/URINE CLEAR (CLEAR); COLOR,URINE YELLOW (YELLOW); GLUCOSE,URINE NEGATIVE (NEGATIVE); KETONES,URINE NEGATIVE (NEGATIVE); LEUKOCYTE ESTERASE ,URINE NEGATIVE (NEGATIVE); NITRITE, URINE NEGATIVE (NEGATIVE); PROTEIN URINE NEGATIVE (NEGATIVE); UROBILINOGEN,URINE 0.2 (0.2-1.0)
[2016-12-05] MEDS ORDERED: MORPHINE 4 MG/ML INJ. SYRINGE IVP ONE ×2 (17:45→19:00)
[2016-12-05] MEDS ORDERED: MAGNESIUM SULFATE 1 GM in NS 100 ML IV ONE (17:45)
[2016-12-05] MEDS ORDERED: DIPHENHYDRAMINE INJ 50 MG/ML VIAL IVP ONE (17:45)
[2016-12-05] MEDS ORDERED: NACL 0.9% 1,000 ML IV ONE (17:45)
--- NOTE | 2016-12-05 17:45 | NUR ---
DR. CORTES AT BEDSIDE EXAMINING THE PT.
[2016-12-05 18:06] LABS: BASOPHILS # (AUTO) 0.3 K/uL (0.0-0.2); EOSINOPHILS # (AUTO) 0.3 K/uL (0.0-0.4); EOSINOPHILS % (AUTO) 2.6 % (0.0-4.0); HEMATOCRIT 40.5 % (36-48); HEMOGLOBIN 13.3 g/dL (12.0-16.0); LYMPHOCYTES # (AUTO) 3.2 K/uL (1.0-5.5); LYMPHOCYTES % (AUTO) 25.3 % (20.5-51.5); MEAN CORPUSCULAR HEMOGLOBIN 27 pg (27-31); MEAN CORPUSCULAR HGB CONC 33 % (32-36); MEAN CORPUSCULAR VOLUME 83 fL (79.0-98.0); MONOCYTES # (AUTO) 0.6 K/uL (0.0-1.0); MONOCYTES % (AUTO) 4.9 % (1.7-9.3); NEUTROPHILS # (AUTO) 8.3 K/uL (1.8-7.7); NEUTROPHILS % (AUTO) 65.2 % (40.0-70.0); PLATELET COUNT (AUTO) 415 K/uL (130-430); RED BLOOD CELL COUNT(AUTO) 4.89 MIL/uL (4.2-6.2); RED CELL DISTRIBUTION WIDTH 13.7 % (9.0-15.0); WHITE BLOOD COUNT (AUTO) 12.8 K/uL (4.8-10.8)
[2016-12-05 18:12] LABS: CALCIUM 9.2 mg/dL (8.4-11.0); CREATININE 1.12 mg/dL (0.55-1.30); POTASSIUM 3.8 mmol/L (3.5-5.1)
[2016-12-05 18:16] LABS: ALBUMIN 3.7 g/dL (3.4-4.8); TOTAL BILIRUBIN 0.4 mg/dL (0.0-1.0); TOTAL PROTEIN, SERUM 7.6 g/dL (6.4-8.3)
[2016-12-05] MEDS ORDERED: MAGNESIUM SULFATE 1 GM/2 ML VIAL ONE (18:27)
--- NOTE | 2016-12-05 18:33 | NUR ---
DR. CORTES AT BEDSIDE TALKING TO THE PT. PER HER PLAN OF CARE
--- NOTE | 2016-12-05 18:34 | NUR ---
IV FLUIDS RUNNING, PT. MEDICATED IV LINE INTACT, NO INFILTRATION NOTED, PT. TOLERATED WELL
[2016-12-05] MEDS ORDERED: ONDANSETRON HCL 4 MG/2 ML VIAL IVP ONE (19:30)
--- NOTE | 2016-12-05 19:49 | NUR ---
Patient given written and verbal discharge instructions and verbalizes understanding. ER MD DR. SLADE discussed with patient the results and treatment provided. Patient in stable condition. ID arm band removed. IV catheter removed intact and dressing applied, no active bleeding. NO Rx given. Patient educated on pain management and to follow up with PMD. Pain Scale 2/10 Opportunity for questions provided and answered.
[2016-12-05 19:50] VITALS: BP 121/71; PULSE 78; RESP 17; TEMP 98.1; O2SAT 99
== END 2016-12-05 19:50 | disposition home or self-care (01) ==
LOC: SED 17:18
DX: S39.012A Strain of muscle, fascia and tendon of lower back, initial encounter (principal); J44.9 Chronic obstructive pulmonary disease, unspecified; I10 Essential (primary) hypertension; E83.42 Hypomagnesemia; M10.9 Gout, unspecified; Z88.0 Allergy status to penicillin; Z91.018 Allergy to other foods; X58.XXXA Exposure to other specified factors, initial encounter; Y93.89 Activity, other specified; Y99.8 Other external cause status; Y92.89 Other specified places as the place of occurrence of the external cause
CPT/HCPCS: 36415; 80053; 81003; 83735; 85025; 96365; 96375; 96376; 99284; J1200; J2270; J2405; J3475; J7030

== ENCOUNTER 2016-12-12 15:19 | Inpatient (IN) | payer OTHER ==
[2016-07-07 12:12] VITALS: Ht 162.6 cm; Wt 108.9 kg
[~2016-12-12] VITALS: Ht 162.6 cm; Wt 108.9 kg
[2016-12-12] MEDS ORDERED: DIPHENHYDRAMINE INJ 50 MG/ML VIAL IVP ONE (15:30)
[2016-12-12] MEDS ORDERED: MAGNESIUM SULFATE 1 GM in NS 100 ML IV ONE (15:30)
[2016-12-12] MEDS ORDERED: NACL 0.9% 1,000 ML IV ONE (15:30)
[2016-12-12] MEDS ORDERED: MORPHINE 4 MG/ML INJ. SYRINGE IVP ONE ×2 (15:30→17:45)
[2016-12-12 15:32] VITALS: BP 120/69; PULSE 111; RESP 20; TEMP 97; O2SAT 99
--- NOTE | 2016-12-12 15:40 | NUR ---
Patient to ER bed 8 to gown for evaluation. Side rails up. Report given to ABHILASH Blanton.
--- NOTE | 2016-12-12 15:42 | NUR ---
Pt brought in by girlfriend in stable condition. Pt c/o right upper quad pain 04/16 since Thursday.Pt stated that she was seen at [facility] on Thursday and was d/c w/ dx of Biliary Colic. Pt stated that she has not eaten anything in 2 days because it increases her abd pain. 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 +n -v/d. -sob -chest pain. No acute distress noted at this time, will continue to monitor.
--- NOTE | 2016-12-12 15:45 | NUR ---
Pt taken to lab and ultrasound, pt able to ambulate to radiology and lab
[2016-12-12 15:54] LABS: EOSINOPHILS # (AUTO) 0.1 K/uL (0.0-0.4); LYMPHOCYTES # (AUTO) 2.2 K/uL (1.0-5.5)
[2016-12-12 15:58] LABS: CALCIUM 9.7 mg/dL (8.4-11.0); CREATININE 1.29 mg/dL (0.55-1.30); POTASSIUM 4.1 mmol/L (3.5-5.1)
[2016-12-12 15:59] LABS: BASOPHILS # (AUTO) 0.2 K/uL (0.0-0.2); BASOPHILS % (AUTO) 1.7 % (0.0-2.0); HEMOGLOBIN 14.2 g/dL (12.0-16.0); LYMPHOCYTES % (AUTO) 17.4 % (20.5-51.5); MEAN CORPUSCULAR HEMOGLOBIN 27 pg (27-31); MEAN CORPUSCULAR HGB CONC 33 % (32-36); MEAN CORPUSCULAR VOLUME 83 fL (79.0-98.0); MONOCYTES # (AUTO) 0.4 K/uL (0.0-1.0); MONOCYTES % (AUTO) 2.8 % (1.7-9.3); NEUTROPHILS # (AUTO) 9.7 K/uL (1.8-7.7); NEUTROPHILS % (AUTO) 77.1 % (40.0-70.0); PLATELET COUNT (AUTO) 436 K/uL (130-430); RED BLOOD CELL COUNT(AUTO) 5.22 MIL/uL (4.2-6.2); WHITE BLOOD COUNT (AUTO) 12.6 K/uL (4.8-10.8)
[2016-12-12 16:03] LABS: ALBUMIN 4.1 g/dL (3.4-4.8); TOTAL BILIRUBIN 0.9 mg/dL (0.0-1.0); TOTAL PROTEIN, SERUM 8.3 g/dL (6.4-8.3)
[2016-12-12] MEDS ORDERED: MAGNESIUM SULFATE 1 GM/2 ML VIAL ONE (16:18)
--- NOTE | 2016-12-12 16:42 | NUR ---
Dr. Hankins at bedside updating patient on lab results
[2016-12-12 16:46] LABS: BILIRUBIN,URINE NEGATIVE (NEGATIVE); BLOOD, URINE NEGATIVE (NEGATIVE); CLARITY/URINE HAZY (CLEAR); COLOR,URINE YELLOW (YELLOW); GLUCOSE,URINE NEGATIVE (NEGATIVE); KETONES,URINE NEGATIVE (NEGATIVE); LEUKOCYTE ESTERASE ,URINE 2+ (NEGATIVE); NITRITE, URINE NEGATIVE (NEGATIVE); PH,URINE 6.5 (5.0-8.0); PROTEIN URINE NEGATIVE (NEGATIVE); UROBILINOGEN,URINE 0.2 (0.2-1.0)
[2016-12-12 16:55] LABS: BACTERIA,URINE MODERATE /HPF (None Seen); RBC,URINE NONE SEEN /HPF (0-3)
[2016-12-12 16:56] LABS: MUCUS,URINE None Seen /LPF (None Seen)
[2016-12-12] MEDS ORDERED: MORPHINE 4 MG/ML INJ. SYRINGE IVP PRN (17:30)
[2016-12-12] MEDS ORDERED: cefTRIAXone 1 GM IVPB PREMIX 50 ML IV ONE (17:30)
[2016-12-12] MEDS ORDERED: DIPHENHYDRAMINE INJ 50 MG/ML VIAL IVP PRN (17:30)
[2016-12-12] MEDS ORDERED: ONDANSETRON HCL 4 MG/2 ML VIAL IVP PRN (17:30)
--- NOTE | 2016-12-12 18:01 | NUR ---
ADMISSION NOTE Received patient from ER via marie, received report from WORLD LANGUAGE TEACHER. Patient admitted with diagnosis of abdominal pain. Patient oriented to hospital routine, call light, toileting and safety-patient verbalized understanding.
--- NOTE | 2016-12-12 18:03 | NUR ---
Patient will be admitted to care of DR. HOLLY. Admitted to MED SURG unit. Will go to room 117-A. Belongings list completed. Summary report printed. Report given to ABHILASH BELCHER.
--- NOTE | 2016-12-12 18:35 | NUR ---
Routine Patient transferred to unit in stable condition.
[2016-12-12 18:36] VITALS: BP 107/71; PULSE 97; RESP 20; O2SAT 96
[2016-12-12 19:48] VITALS: BP 113/71; PULSE 99; RESP 16; TEMP 97.3; O2SAT 98
[2016-12-12 20:00] VITALS: BP 113/71; PULSE 99; RESP 20; TEMP 97.3
--- NOTE | 2016-12-12 20:00 | NUR ---
NOTES PATIENT SITTING UP IN BED IN GOOD SPIRITS. ALERT AND ORIENTED X4. IV PATENT AND INFUSING. NO ACUTE SIGNS OR SYMPTOMS OF DISTRESS NOTED. BED IN LOWEST POSITION, BED ALARM ON, CALL LIGHT WITHIN REACH.
[2016-12-12] MEDS ORDERED: COLCHICINE 0.6 MG TABLET PO PRN (21:00)
[2016-12-12] MEDS: aMILoride HCL 5 MG TABLET PO SCH (21:00)
[2016-12-12] MEDS ORDERED: MORPHINE SULFATE 30 MG Immediate Release TABLET PO SCH (21:00)
[2016-12-12] MEDS: CHOLECALCIFEROL (VITAMIN D3) 2,000 UNIT TABLET PO SCH (21:00)
[2016-12-12] MEDS ORDERED: NON-FORMULARY MEDICATION (Saccharomyces Boulardii (Florastor) 250 MG) PO SCH (21:00)
[2016-12-12] MEDS ORDERED: MULTIVITAMINS TAB 1 TABLET PO SCH (21:00)
[2016-12-12] MEDS ORDERED: POTASSIUM CHLORIDE 10 MEQ TAB.PRT.SR PO SCH (21:00)
--- NOTE | 2016-12-12 21:20 | NUR ---
DR. HOLLY MAKING ROUNDS ASSESSED PT. MORPHINE, BENADRYL, AND ZOFRAN TIMES CHANGED TO Q3PRN. STATED HE WANTS HIDA SCAN WITH EJECTION FRACTION. SPOKE TO ANITA, NUCLEAR MED, AND SHE ASKED TO MAKE SURE WE INCLUDE IT IN THE CONSENT. ANITA ALSO STATED SHE WILL NOT KNOW IF SHE CAN GET A HOLD OF THE MEDICATION SHE NEEDS FOR THE EJECTION FRACTION UNTIL THE MORNING, DR. HOLLY PRESENT AND AWARE SHE MIGHT NOT BE ABLE TO DO THE EJECTION FRACTION.
[2016-12-12] MEDS ORDERED: FAMOTIDINE 20 MG TABLET PO PRN (21:30)
[2016-12-12] MEDS: LORazepam 1 MG TABLET PO SCH (21:37)
[2016-12-12] MEDS: DIPHENHYDRAMINE INJ 50 MG/ML VIAL IVP PRN (21:38)
[2016-12-12] MEDS: ONDANSETRON HCL 4 MG/2 ML VIAL IVP PRN (21:38)
[2016-12-12] MEDS: MORPHINE 4 MG/ML INJ. SYRINGE IVP PRN (21:39)
[2016-12-12] MEDS: TEMAZEPAM 15 MG CAPSULE PO SCH (23:09)
--- NOTE | 2016-12-12 23:20 | NUR ---
ROUNDS PATIENT IV WAS FLUSHED AND REDRESSED, IV PATENT AND FLOWING. NO SIGNS OF INFILTRATION NOTED. FALL PRECAUTIONS IN PLACE. CALL LIGHT WITHIN REACH.
[2016-12-13] VITALS (8 sets, daily range): BP systolic 97–119; BP diastolic 57–77; PULSE 86–95; RESP 16–18; TEMP 96.9–97.7; O2SAT 93–98
[2016-12-13] MEDS: ONDANSETRON HCL 4 MG/2 ML VIAL IVP PRN ×7 (00:57→23:13)
[2016-12-13] MEDS: DIPHENHYDRAMINE INJ 50 MG/ML VIAL IVP PRN ×7 (00:58→23:13)
[2016-12-13] MEDS: MORPHINE 4 MG/ML INJ. SYRINGE IVP PRN ×7 (00:59→23:13)
--- NOTE | 2016-12-13 01:35 | NUR ---
ROUNDS PATIENT COMPLAINED OF PAIN 04/16. PATIENT MEDICATED PER PRN MEDICATIONS. IV PATENT AND INFUSING. SITTING UP IN BED WATCHING TELEVISION. BED IN LOWEST POSITION, BED ALARM ON, CALL LIGHT WITHIN REACH.
--- NOTE | 2016-12-13 03:30 | NUR ---
ROUNDS PATIENT SLEEPING COMFORTABLY IN BED. VISIBLE RISE AND FALL OF CHEST NOTED. NO ACUTE S/S OF DISTRESS. BED IN LOWEST POSITION, BED ALARM ON, CALL LIGHT WITHIN REACH. WILL CONTINUE TO MONITOR.
--- NOTE | 2016-12-13 05:30 | NUR ---
ROUNDS PATIENT IS SITTING UP IN BED WATCHING TELEVISION. STATES PAIN HAS REDUCED TO A 3/10. NO ACUTE S/S OF DISTRESS NOTED. FALL PRECAUTIONS IN PLACE. CALL LIGHT WITHIN REACH.
--- NOTE | 2016-12-13 06:30 | NUR ---
CLOSING NOTES NO S/S OF DISTRESS NOTED. WILL ENDORSE CARE TO DAY SHIFT NURSE. FALL PRECAUTIONS IN PLACE, CALL LIGHT WITHIN REACH.
[2016-12-13 07:36] LABS: BASOPHILS # (AUTO) 0.1 K/uL (0.0-0.2); BASOPHILS % (AUTO) 0.9 % (0.0-2.0); EOSINOPHILS # (AUTO) 0.2 K/uL (0.0-0.4); EOSINOPHILS % (AUTO) 1.7 % (0.0-4.0); HEMATOCRIT 37.8 % (36-48); HEMOGLOBIN 12.5 g/dL (12.0-16.0); LYMPHOCYTES # (AUTO) 3.6 K/uL (1.0-5.5); LYMPHOCYTES % (AUTO) 26.6 % (20.5-51.5); MEAN CORPUSCULAR HEMOGLOBIN 28 pg (27-31); MEAN CORPUSCULAR HGB CONC 33 % (32-36); MEAN CORPUSCULAR VOLUME 84 fL (79.0-98.0); MONOCYTES # (AUTO) 0.9 K/uL (0.0-1.0); MONOCYTES % (AUTO) 6.4 % (1.7-9.3); NEUTROPHILS # (AUTO) 8.7 K/uL (1.8-7.7); NEUTROPHILS % (AUTO) 64.4 % (40.0-70.0); PLATELET COUNT (AUTO) 362 K/uL (130-430); RED BLOOD CELL COUNT(AUTO) 4.51 MIL/uL (4.2-6.2); RED CELL DISTRIBUTION WIDTH 13.6 % (9.0-15.0); WHITE BLOOD COUNT (AUTO) 13.5 K/uL (4.8-10.8)
[2016-12-13 07:57] LABS: ALBUMIN 3.5 g/dL (3.4-4.8); CALCIUM 9.2 mg/dL (8.4-11.0); CREATININE 1.16 mg/dL (0.55-1.30); POTASSIUM 3.6 mmol/L (3.5-5.1); TOTAL BILIRUBIN 0.8 mg/dL (0.0-1.0); TOTAL PROTEIN, SERUM 7.1 g/dL (6.4-8.3)
--- NOTE | 2016-12-13 08:00 | NUR ---
INITIAL NOTE PT LAYING IN BED, AWAKE, ALERT AND ORIENTED X4, NO S/S OF DISTRESS, PT AWARE THAT SHE CANNOT HAVE PAIN MEDICATIONS OR WATER UNTIL AFTER HIDASCAN THIS AM. PT VERBALIZED UNDERSTANDING. IV TO RIGHT HAND TKO, NO S/S OF INFILTRATION NOTED, SAFETY MEASURES IN PLACE, PT REORIENTED USE OF CALL LIGHT ADNIT IS PLACED WITHIN REACH, WILL FOLLOW UP
--- NOTE | 2016-12-13 08:05 | NUR ---
PT PICKED UP FOR JARRED
[2016-12-13] MEDS ORDERED: POTASSIUM CHLORIDE 20 MEQ TAB.PRT.SR PO SCH (09:00)
[2016-12-13 09:12] LABS: ERYTHROCYTE SEDIMENTATION RATE 25 MM/HR (0-20)
--- NOTE | 2016-12-13 09:30 | NUR ---
PT RETURNED FROM [facility] AM MEDICATION AND PAIN MEDICATION ADMINISTERED. VSS, NO S/S OF DISTRESS NOTED.
[2016-12-13] MEDS: LORazepam 1 MG TABLET PO SCH ×2 (09:56→21:55)
[2016-12-13] MEDS: MULTIVITAMINS TAB 1 TABLET PO SCH (09:56)
[2016-12-13] MEDS: CYCLOBENZAPRINE HCL 10 MG TABLET (FLEXERIL) PO SCH (09:57)
[2016-12-13] MEDS: DULoxetine HCL 30 MG CAPSULE.DR (CYMBALTA) PO SCH (09:57)
[2016-12-13] MEDS: SPIRONOLACTONE 50 MG TABLET (ALDACTONE) PO SCH (09:58)
[2016-12-13] MEDS: CHOLECALCIFEROL (VITAMIN D3) 2,000 UNIT TABLET PO SCH ×2 (09:59→21:55)
--- NOTE | 2016-12-13 10:00 | NUR ---
ROOM CHANGE PT CHANGED TO ALTERNATE ROOM, 108C, PT AGREES TO ROOM CHANGE. PT SETTLED IN, REORIENTED TO NEW ROOM, CALL LIGHT WITHIN REACH, SAFETY MEASURES IN PLACE, WILL FOLLOW UP
[2016-12-13] MEDS: aMILoride HCL 5 MG TABLET PO SCH ×2 (10:24→21:55)
--- NOTE | 2016-12-13 12:00 | NUR ---
rounds pt in bed, resting, no s/s of distress or sob, set meal tray up, pt states she does not really have an appetite, encouraged to eat what she can tolerate, safety measures in place, will follow up
--- NOTE | 2016-12-13 13:25 | NUR ---
pain management bp 104/65, hr 90, o2 95 rr16, pain 8 administered morphine, Benadryl, and Zofran safety measures in place, pt encouraged to use call light and it is placed within reach, will follow up
[2016-12-13] MEDS ORDERED: MAGNESIUM SULFATE 50 ML IV ONE (14:00)
--- NOTE | 2016-12-13 16:21 | NUR ---
DR HOLLY AT BEDSIDE, UPDATED PATIENT ON RESULTS TO JARRED AND PLAN OF CARE, STATES HE BELIEVES THERE IS A SUPERFICIAL INJURY, POSSIBLE MUSCLE OR RIB ORIENTED. PT STATES THAT COULD POSSIBLE BE THE ISSUE, PT VERBALIZES UNDERSTANDING, WILL FOLLOW UP
[2016-12-13] MEDS: POTASSIUM CHLORIDE 20 MEQ TAB.PRT.SR PO SCH ×2 (16:38→21:56)
--- NOTE | 2016-12-13 16:39 | NUR ---
PAIN MANAGEMENT COMPLAINT OF PAIN 04/16 UNDER RIGHT BREAST, VSS, ADMINISTERED PRN PAIN MEDICATION, PT TOLERATED WELL SAFETY MEASURES IN PLACE, WILL FOLLOW UP.
--- NOTE | 2016-12-13 18:41 | NUR ---
CLOSING NOTE PT SITTING UP IN BED, NO S/S OF DISTRESS OR COMPLAINT OF PAIN AT THIS TIME, ALL NEEDS MET DURING SHIFT, IV TO RIGHT HAND INTACT INFUSING TKO, NO S/S OF INFILTRATION NOTED, SAFETY MEASURES IN PLACE, CALL LIGHT WITHIN REACH, WILL ENDORSE CARE TO FOLLOWING SHIFT.
--- NOTE | 2016-12-13 20:15 | NUR ---
OPENING NOTES PATIENT IS SITTING UP IN BED WATCHING TELEVISION. NO SIGNS OR SYMPTOMS OF ACUTE DISTRESS NOTED. IV RUNNING AND NO SIGNS OF INFILTRATION. BED IN LOWEST POSITION, BED ALARM ON, CALL LIGHT WITHIN REACH.
[2016-12-13] MEDS: TEMAZEPAM 15 MG CAPSULE PO SCH (21:56)
--- NOTE | 2016-12-13 22:15 | NUR ---
ROUNDS PATIENT IS SITTING UP IN BED WATCHING TELEVISION. NO ACUTE S/S OF DISTRESS NOTED. FALL PRECAUTIONS IN PLACE. CALL LIGHT WITHIN REACH.
[2016-12-14] VITALS (7 sets, daily range): BP systolic 104–111; BP diastolic 60–71; PULSE 76–99; RESP 14–20; TEMP 96.2–98.9; O2SAT 85–97
--- NOTE | 2016-12-14 00:15 | NUR ---
ROUNDS PATIENT IS SLEEPING COMFORTABLY, VISIBLE RISE AND FALL OF CHEST NOTED. NO ACUTE S/S OF DISTRESS NOTED. FALL PRECAUTIONS IN PLACE. CALL LIGHT WITHIN REACH.
--- NOTE | 2016-12-14 02:15 | NUR ---
ROUNDS PATIENT IS SLEEPING COMFORTABLY, VISIBLE RISE AND FALL OF CHEST NOTED. NO ACUTE S/S OF DISTRESS NOTED. FALL PRECAUTIONS IN PLACE. CALL LIGHT WITHIN REACH.
[2016-12-14] MEDS: MORPHINE 4 MG/ML INJ. SYRINGE IVP PRN ×7 (02:24→22:39)
[2016-12-14] MEDS: ONDANSETRON HCL 4 MG/2 ML VIAL IVP PRN ×7 (02:24→22:38)
[2016-12-14] MEDS: DIPHENHYDRAMINE INJ 50 MG/ML VIAL IVP PRN ×7 (02:24→22:38)
--- NOTE | 2016-12-14 04:15 | NUR ---
ROUNDS PATIENT IS SLEEPING WITH VISIBLE RISE AND FALL OF CHEST NOTED. NO ACUTE SIGNS OR SYMPTOMS OF DISTRESS NOTED. BED IN LOWEST POSITION, BED ALARM ON, CALL LIGHT WITHIN REACH.
[2016-12-14] MEDS ORDERED: fentaNYL 50 MCG/HR PATCH TD SCH (06:00)
--- NOTE | 2016-12-14 06:15 | NUR ---
ROUNDS PATIENT COMPLAINING OF PAIN 7-04/16. PATIENT PROVIDED MEDICATION PER ORERS. IV INFUSING AND PATENT. NO SIGNS OF INFILTRATION. NO ACUTE SIGNS OF DISTRESS NOTED. BED IN LOWEST POSITION, BED ALARM ON, CALL LIGHT WITHIN REACH. WILL ENDORSE CARE TO DAY SHIFT NURSE.
--- NOTE | 2016-12-14 07:20 | NUR ---
initial notes: pt on bed awake, alert and oriented. i.v. access patent. discussed plan of care. report received at bedside.
[2016-12-14 07:30] LABS: BASOPHILS # (AUTO) 0.1 K/uL (0.0-0.2); BASOPHILS % (AUTO) 0.7 % (0.0-2.0); CALCIUM 8.9 mg/dL (8.4-11.0); CREATININE 1.22 mg/dL (0.55-1.30); EOSINOPHILS # (AUTO) 0.3 K/uL (0.0-0.4); EOSINOPHILS % (AUTO) 2.9 % (0.0-4.0); HEMOGLOBIN 12.3 g/dL (12.0-16.0); LYMPHOCYTES % (AUTO) 29.8 % (20.5-51.5); MEAN CORPUSCULAR HEMOGLOBIN 28 pg (27-31); MEAN CORPUSCULAR HGB CONC 33 % (32-36); MEAN CORPUSCULAR VOLUME 84 fL (79.0-98.0); MONOCYTES # (AUTO) 0.7 K/uL (0.0-1.0); NEUTROPHILS # (AUTO) 6.1 K/uL (1.8-7.7); NEUTROPHILS % (AUTO) 59.6 % (40.0-70.0); PLATELET COUNT (AUTO) 373 K/uL (130-430); POTASSIUM 3.5 mmol/L (3.5-5.1); RED BLOOD CELL COUNT(AUTO) 4.43 MIL/uL (4.2-6.2); RED CELL DISTRIBUTION WIDTH 13.7 % (9.0-15.0); WHITE BLOOD COUNT (AUTO) 10.2 K/uL (4.8-10.8)
[2016-12-14] MEDS: LORazepam 1 MG TABLET PO SCH ×2 (09:55→22:05)
[2016-12-14] MEDS: CYCLOBENZAPRINE HCL 10 MG TABLET (FLEXERIL) PO SCH (09:55)
[2016-12-14] MEDS: MULTIVITAMINS TAB 1 TABLET PO SCH (09:55)
[2016-12-14] MEDS: SPIRONOLACTONE 50 MG TABLET (ALDACTONE) PO SCH (09:56)
[2016-12-14] MEDS: CHOLECALCIFEROL (VITAMIN D3) 2,000 UNIT TABLET PO SCH ×2 (09:56→22:04)
[2016-12-14] MEDS: POTASSIUM CHLORIDE 20 MEQ TAB.PRT.SR PO SCH ×4 (09:57→22:04)
[2016-12-14] MEDS: DULoxetine HCL 30 MG CAPSULE.DR (CYMBALTA) PO SCH (09:57)
--- NOTE | 2016-12-14 10:00 | NUR ---
rounds: pt on bed resting. no distress noted.
[2016-12-14] MEDS: aMILoride HCL 5 MG TABLET PO SCH ×2 (10:03→22:04)
[2016-12-14] MEDS: MAGNESIUM CHLORIDE 64 MG TABLET.DR PO SCH ×4 (10:03→22:10)
--- NOTE | 2016-12-14 14:00 | NUR ---
Katie rounds: seen by Dr. Mota with new order.
[2016-12-14] MEDS ORDERED: POTASSIUM CHLORIDE IV ONE ×4 (15:15)
[2016-12-14] MEDS ORDERED: MAGNESIUM SULFATE IV ONE ×4 (15:15)
[2016-12-14] MEDS ORDERED: [UNRECOGNIZED DRUG - OTHER] IV ONE ×4 (15:15)
[2016-12-14] MEDS ORDERED: FLUCONAZOLE 200 MG TABLET (DIFLUCAN) PO ONE (15:30)
[2016-12-14] MEDS ORDERED: cefTRIAXone 1 GM in D5W 50 ML IV SCH (16:00)
--- NOTE | 2016-12-14 16:00 | NUR ---
rounds: pt pain meds given. stable.
--- NOTE | 2016-12-14 17:30 | NUR ---
rounds: pt having dinner. no distress noted.
--- NOTE | 2016-12-14 18:50 | NUR ---
closing notes: pt on bed resting. needs attended. stable. call light within reach. report will be given at business job titles nurse.
--- NOTE | 2016-12-14 19:02 | NUR ---
OPENING NOTES RECEIVED REPORT AT BEDSIDE. PATIENT SITTING UP IN BED, WATCHING TELEVISION. IV PATENT AND INFUSING. NO S/S OF DISTRESS NOTED. FALL PRECAUTIONS IN PLACE, CALL LIGHT WITHIN REACH. WILL CONTINUE TO MONITOR.
--- NOTE | 2016-12-14 20:55 | NUR ---
REDRESSED IV SITE PATIENT TOLERATED WELL. IV RUNNING, NO SIGNS OF INFILTRATION.
[2016-12-14] MEDS: TEMAZEPAM 15 MG CAPSULE PO SCH (22:10)
--- NOTE | 2016-12-14 23:26 | NUR ---
ROUNDS PATIENT SITTING UP IN BED, WATCHING TELEVISION. IV PATENT AND INFUSING. NO S/S OF DISTRESS NOTED. FALL PRECAUTIONS IN PLACE, CALL LIGHT WITHIN REACH. WILL CONTINUE TO MONITOR.
--- NOTE | 2016-12-15 00:10 | NUR ---
PATIENT JUAN MANUEL SIDDIQI WENT HOME 12/15/1914 @ 0008 SHE PASSED MY NURSES STATION ON [facility] @ 0010 ON 12/15/16
--- NOTE | 2016-12-15 00:15 | NUR ---
DEVANG ZAMBRANO WAS DC TODAY 12/15/16 @ 0008 EVEN THOUGH SHE SIGNED DC. PAPERS @ [id number] SHE LEFT THE BUILDING AFTER MIDNIGHT SHE PASSED BY NURSES STATION ON [facility] @ 0010 I WAS INFORM BY JEANNE MENDEZ MT/US
[2016-12-15 00:19] VITALS: BP 98/57; PULSE 93; RESP 20; TEMP 97.9; O2SAT 94
--- NOTE | 2016-12-15 00:20 | NUR ---
D/C Patient [id number] Patient given medication reconciliation form and D/C instructions. Exit Care provided. Patient verbalized understanding. MD discussed with patient the results and treatment provided. Ambulatory with steady gait for discharge to home. Patient in stable condition, ID band removed. IV catheter removed, intact and dressing applied, no active bleeding. No Rx given. Patient educated on pain management. All belongings sent with patient.
== END 2016-12-15 00:08 | disposition home or self-care (01) | DRG 206 ==
LOC: SED 15:19 → SMU 17:26
PROVIDERS: ADMIT Internal Medicine; ATTEND Internal Medicine
DX: S22.39XA Fracture of one rib, unspecified side, initial encounter for closed fracture (principal); N39.0 Urinary tract infection, site not specified; Z68.41 Body mass index [BMI] 40.0-44.9, adult; R10.11 Right upper quadrant pain; F32.9 Major depressive disorder, single episode, unspecified; F41.9 Anxiety disorder, unspecified; G89.4 Chronic pain syndrome; J44.9 Chronic obstructive pulmonary disease, unspecified; I10 Essential (primary) hypertension; E83.42 Hypomagnesemia; M10.9 Gout, unspecified; N28.9 Disorder of kidney and ureter, unspecified; E66.01 Morbid (severe) obesity due to excess calories; Z88.0 Allergy status to penicillin; Z91.018 Allergy to other foods; Z79.899 Other long term (current) drug therapy; Z90.710 Acquired absence of both cervix and uterus; X58.XXXA Exposure to other specified factors, initial encounter; Y93.89 Activity, other specified; Y92.89 Other specified places as the place of occurrence of the external cause; Y99.8 Other external cause status
CPT/HCPCS: 36415; 76705; 78226; 80048; 80053; 81000-TC; 82150-TC; 83605; 83690-TC; 83735-TC; 85025; 85651-TC; 87040-TC; 87086; 96365; 96367; 96375; 96376; 99291; A9537; J0696; J1200; J2270; J2405; J3475; J3480; J7030; J7050; J7060

== ENCOUNTER 2016-12-19 18:50 | Emergency (ER) | payer OTHER ==
[2016-07-07 12:12] VITALS: Ht 162.6 cm; Wt 94.8 kg
[~2016-12-19] VITALS: Ht 162.6 cm; Wt 94.8 kg
[2016-12-19 18:50] VITALS: BP 106/75; PULSE 106; RESP 18; TEMP 97.2; O2SAT 98
--- NOTE | 2016-12-19 18:50 | NUR ---
Placed in room 02. Placed on lunchroom monitor, blood pressure machine and pulse oximeter. To gown for exam. Side rails up. Report given to ABHILASH Sanders.
[2016-12-19 19:00] VITALS: BP 106/75; PULSE 109; RESP 18; TEMP 97.2; O2SAT 97
--- NOTE | 2016-12-19 19:00 | NUR ---
Pt presents to ED with c/o feeling tired, dizziness, 1 episode of syncope today while shopping at [employer] per Pt. Pt stated she then fell down and hurted her right leg, pain 8/10. Pt appeared pale, skin intact, able to walk with assistance. A&Ox4, denies SOB or chestpain, denies N/V/D. No active bleeding noted. Will continue to monitor
--- NOTE | 2016-12-19 19:02 | NUR ---
Dr. Antunez at bedside for evaluation
[2016-12-19] MEDS ORDERED: DIPHENHYDRAMINE INJ 50 MG/ML VIAL IVP ONE (19:15)
[2016-12-19] MEDS ORDERED: MORPHINE 2 MG/ML INJ. SYRINGE IVP ONE (19:15)
--- NOTE | 2016-12-19 19:40 | NUR ---
ER Dr. Canales at bedside examining patient.
[2016-12-19 19:43] LABS: BASOPHILS # (AUTO) 0.3 K/uL (0.0-0.2); BASOPHILS % (AUTO) 2.4 % (0.0-2.0); CREATININE 1.26 mg/dL (0.55-1.30); EOSINOPHILS # (AUTO) 0.2 K/uL (0.0-0.4); HEMATOCRIT 38.6 % (36-48); HEMOGLOBIN 12.9 g/dL (12.0-16.0); LYMPHOCYTES # (AUTO) 3.1 K/uL (1.0-5.5); LYMPHOCYTES % (AUTO) 25.1 % (20.5-51.5); MEAN CORPUSCULAR HEMOGLOBIN 28 pg (27-31); MEAN CORPUSCULAR HGB CONC 33 % (32-36); MEAN CORPUSCULAR VOLUME 83 fL (79.0-98.0); MONOCYTES # (AUTO) 0.6 K/uL (0.0-1.0); NEUTROPHILS # (AUTO) 8.2 K/uL (1.8-7.7); NEUTROPHILS % (AUTO) 65.5 % (40.0-70.0); PLATELET COUNT (AUTO) 403 K/uL (130-430); POTASSIUM 4.5 mmol/L (3.5-5.1); RED BLOOD CELL COUNT(AUTO) 4.65 MIL/uL (4.2-6.2); RED CELL DISTRIBUTION WIDTH 14.2 % (9.0-15.0); WHITE BLOOD COUNT (AUTO) 12.4 K/uL (4.8-10.8)
[2016-12-19 19:44] LABS: PROTHROMBIN TIME 10.8 SECS (9.5-12.5)
[2016-12-19 19:47] LABS: ALBUMIN 3.7 g/dL (3.4-4.8); TOTAL BILIRUBIN 0.4 mg/dL (0.0-1.0); TOTAL PROTEIN, SERUM 7.6 g/dL (6.4-8.3)
[2016-12-19 20:15] LABS: BILIRUBIN,URINE NEGATIVE (NEGATIVE); BLOOD, URINE NEGATIVE (NEGATIVE); CLARITY/URINE CLEAR (CLEAR); COLOR,URINE YELLOW (YELLOW); GLUCOSE,URINE NEGATIVE (NEGATIVE); KETONES,URINE NEGATIVE (NEGATIVE); LEUKOCYTE ESTERASE ,URINE NEGATIVE (NEGATIVE); NITRITE, URINE NEGATIVE (NEGATIVE); PH,URINE 5.5 (5.0-8.0); PROTEIN URINE NEGATIVE (NEGATIVE); UROBILINOGEN,URINE 0.2 (0.2-1.0)
[2016-12-19] MEDS ORDERED: NS 500 ML IV ONE (20:30)
[2016-12-19] MEDS ORDERED: KETOROLAC TROMETHAMINE 30 MG VIAL IVP ONE (20:30)
[2016-12-19] MEDS ORDERED: MORPHINE 4 MG/ML INJ. SYRINGE IVP ONE (21:30)
[2016-12-19 21:45] VITALS: BP 110/75; PULSE 99; RESP 18; TEMP 97.8; O2SAT 98
--- NOTE | 2016-12-19 21:45 | NUR ---
Patient given written and verbal discharge instructions and verbalizes understanding. ER MD discussed with patient the results and treatment provided. Patient in stable condition. ID arm band removed. IV catheter removed intact and dressing applied, no active bleeding. No Rx given. Patient educated on pain management and to follow up with PMD. Pain Scale 0/10. Opportunity for questions provided and answered.
== END 2016-12-19 21:45 | disposition home or self-care (01) ==
LOC: SED 18:50
DX: M25.561 Pain in right knee (principal); R55 Syncope and collapse; R06.02 Shortness of breath; R11.0 Nausea; J44.9 Chronic obstructive pulmonary disease, unspecified; I10 Essential (primary) hypertension; M10.9 Gout, unspecified; F41.9 Anxiety disorder, unspecified; E83.42 Hypomagnesemia; Z91.018 Allergy to other foods; Z88.0 Allergy status to penicillin; Z90.710 Acquired absence of both cervix and uterus
CPT/HCPCS: 36415; 70450; 73560; 80053; 81003; 83735; 83880; 84484; 85025; 85610; 93005; 96361; 96374; 96375; 96376; 99285; J1200; J1885; J2270 ×2; J7040

== ENCOUNTER 2016-12-22 15:35 | Emergency (ER) | payer OTHER ==
[~2016-12-22] VITALS: Ht 162.6 cm; Wt 108.9 kg
[~2016-12-22 15:35] MED LIST changes: -AMIL5TAB9; -CLON0.5T4 PO; -COLC0.6T67; -COLCHINE; -CYCL-10 PO; -CYCLOBENZAPINE; -CYM30; -DULO60CA41; -FENT1PAT4; -FERR236T; -HYDR-1189 PO; -HYDR-4100 PO; -IRON1CAP18; -LORA1TAB; -MAGN400T10 PO; -METR500T PO; -MUPI1OIN4; -NORCO5; -POTA20PA PO; -POTA20PA4; -POTA20TA83; -PRAV40TA PO; -PRAV40TA63; -PRO40 PO; -SPIR25TA PO; -VANC125C10 PO
[2016-12-22 16:25] VITALS: BP_SYST 105
[2016-12-22 17:06] LABS: BASOPHILS % (AUTO) 0.4 % (0.0-2.0); EOSINOPHILS # (AUTO) 0.1 K/uL (0.0-0.4); HEMATOCRIT 41.3 % (36-48); HEMOGLOBIN 13.3 g/dL (12.0-16.0); LYMPHOCYTES # (AUTO) 2.1 K/uL (1.0-5.5); LYMPHOCYTES % (AUTO) 19.3 % (20.5-51.5); MEAN CORPUSCULAR HEMOGLOBIN 27 pg (27-31); MEAN CORPUSCULAR HGB CONC 32 % (32-36); MEAN CORPUSCULAR VOLUME 84 fL (79.0-98.0); MONOCYTES # (AUTO) 0.3 K/uL (0.0-1.0); MONOCYTES % (AUTO) 2.5 % (1.7-9.3); NEUTROPHILS # (AUTO) 8.6 K/uL (1.8-7.7); NEUTROPHILS % (AUTO) 76.8 % (40.0-70.0); PLATELET COUNT (AUTO) 459 K/uL (130-430); RED BLOOD CELL COUNT(AUTO) 4.94 MIL/uL (4.2-6.2); WHITE BLOOD COUNT (AUTO) 11.1 K/uL (4.8-10.8)
[2016-12-22 17:10] LABS: CALCIUM 9.7 mg/dL (8.4-11.0); CREATININE 1.18 mg/dL (0.55-1.30); POTASSIUM 4.2 mmol/L (3.5-5.1)
[2016-12-22 17:14] LABS: PROTHROMBIN TIME 10.9 SECS (9.5-12.5); TOTAL BILIRUBIN 0.5 mg/dL (0.0-1.0); TOTAL PROTEIN, SERUM 8.1 g/dL (6.4-8.3)
[2016-12-22 18:17] LABS: BILIRUBIN,URINE NEGATIVE (NEGATIVE); BLOOD, URINE NEGATIVE (NEGATIVE); CLARITY/URINE CLEAR (CLEAR); COLOR,URINE YELLOW (YELLOW); GLUCOSE,URINE NEGATIVE (NEGATIVE); KETONES,URINE NEGATIVE (NEGATIVE); LEUKOCYTE ESTERASE ,URINE NEGATIVE (NEGATIVE); NITRITE, URINE NEGATIVE (NEGATIVE); PH,URINE 7.5 (5.0-8.0); PROTEIN URINE NEGATIVE (NEGATIVE); UROBILINOGEN,URINE 0.2 (0.2-1.0)
[2016-12-22 18:42] VITALS: BP_SYST 105
== END 2016-12-22 18:42 | disposition home or self-care (01) ==
LOC: SED 15:35
DX: R50.9 Fever, unspecified (principal); R11.0 Nausea; J44.9 Chronic obstructive pulmonary disease, unspecified; I10 Essential (primary) hypertension; F41.9 Anxiety disorder, unspecified; M10.9 Gout, unspecified; R48.8 Other symbolic dysfunctions; Z79.899 Other long term (current) drug therapy; Z88.0 Allergy status to penicillin; Z91.02 Food additives allergy status
CPT/HCPCS: 36415; 71010; 80053; 81003; 81025; 83735-TC; 84703; 85025; 85610-TC; 85730-TC; 99285

== ENCOUNTER 2016-12-24 16:21 | Inpatient (IN) | payer OTHER ==
[2016-07-07 12:12] VITALS: Ht 162.6 cm; Wt 107.6 kg
[~2016-12-24] VITALS: Ht 162.6 cm; Wt 107.6 kg
[2016-12-24 16:21] VITALS: BP 127/69; PULSE 93; RESP 18; TEMP 97.9; O2SAT 95
[~2016-12-24 16:21] MED LIST changes: +AMIL5TAB9; +CLON0.5T4 PO; +COLC0.6T67; +COLCHINE; +CYCL-10 PO; +CYCLOBENZAPINE; +CYM30; +DULO60CA41; +FENT1PAT4; +FERR236T; +HYDR-1189 PO; +HYDR-4100 PO; +IRON1CAP18; +LORA1TAB; +MAGN400T10 PO; +METR500T PO; +MUPI1OIN4; +NORCO5; +POTA20PA PO; +POTA20PA4; +POTA20TA83; +PRAV40TA PO; +PRAV40TA63; +PRO40 PO; +SPIR25TA PO; +VANC125C10 PO
--- NOTE | 2016-12-24 16:21 | NUR ---
Placed in room 03. Placed on cardiac cath tech, blood pressure machine and pulse oximeter. To gown for exam. Side rails up. Report given to ABHILASH Rosa.
--- NOTE | 2016-12-24 16:25 | NUR ---
Dr. Barber at bedside for evaluation
[2016-12-24] MEDS ORDERED: NACL 0.9% 1,000 ML IV ONE (16:30)
--- NOTE | 2016-12-24 16:30 | NUR ---
Pt presents to ED with Abd pain to LUQ. S/O reports pt had syncopal episode x 35 seconds. pt also reports vomiting at home 6x. Pt reports not eating x 2 days d/t nausea. Pt is A&O x4. Breathing is even and unlabored. No acute distress. Color is good. No diapharesis noted. BS is 128 mg/dl. Vss.
[2016-12-24] MEDS ORDERED: DIPHENHYDRAMINE INJ 50 MG/ML VIAL IVP ONE ×2 (16:45→18:45)
[2016-12-24] MEDS ORDERED: ONDANSETRON HCL 4 MG/2 ML VIAL IVP ONE (16:45)
[2016-12-24] MEDS ORDERED: HYDROmorphone 1 MG INJ. 1 MG/ML AMPUL IVP ONE (16:45)
[2016-12-24 16:59] LABS: PHOSPHORUS 3.1 mg/dL (2.7-4.5)
--- NOTE | 2016-12-24 17:00 | NUR ---
Medications administered. PT tolerated well. Will continue to monitor
[2016-12-24] MEDS ORDERED: MAGNESIUM SULFATE 50 ML IV ONE (17:15)
[2016-12-24 17:33] LABS: BASOPHILS % (AUTO) 0.4 % (0.0-2.0); EOSINOPHILS % (AUTO) 0.2 % (0.0-4.0); HEMATOCRIT 41.3 % (36-48); HEMOGLOBIN 13.7 g/dL (12.0-16.0); LYMPHOCYTES # (AUTO) 2.4 K/uL (1.0-5.5); LYMPHOCYTES % (AUTO) 19.5 % (20.5-51.5); MEAN CORPUSCULAR HEMOGLOBIN 27 pg (27-31); MEAN CORPUSCULAR HGB CONC 33 % (32-36); MEAN CORPUSCULAR VOLUME 82 fL (79.0-98.0); MONOCYTES # (AUTO) 0.3 K/uL (0.0-1.0); MONOCYTES % (AUTO) 2.5 % (1.7-9.3); NEUTROPHILS # (AUTO) 9.4 K/uL (1.8-7.7); NEUTROPHILS % (AUTO) 77.4 % (40.0-70.0); PLATELET COUNT (AUTO) 420 K/uL (130-430); RED BLOOD CELL COUNT(AUTO) 5.01 MIL/uL (4.2-6.2); RED CELL DISTRIBUTION WIDTH 13.9 % (9.0-15.0); WHITE BLOOD COUNT (AUTO) 12.1 K/uL (4.8-10.8)
[2016-12-24 17:44] LABS: INR 1.1 (0.8-1.2); PROTHROMBIN TIME 11.9 SECS (9.5-12.5)
[2016-12-24 17:53] LABS: ANION GAP 10 (5-15); CALCIUM 9.6 mg/dL (8.4-11.0); CHLORIDE 101 mmol/L (98-107); CREATININE 1.07 mg/dL (0.55-1.30); GLUCOSE 132 mg/dL (70-99); POTASSIUM 3.2 mmol/L (3.5-5.1); SODIUM SERUM 138 mmol/L (136-145); UREA NITROGEN, BLOOD 13 mg/dL (8-21)
[2016-12-24 17:57] LABS: ALANINE AMINOTRANSFERASE 30 U/L (12-78); ALBUMIN 4.1 g/dL (3.4-4.8); ASPARTATE AMINOTRANSFERASE 25 U/L (10-37); SALICYLATE 1 mg/dL (3-30); TOTAL BILIRUBIN 0.7 mg/dL (0.0-1.0); TOTAL PROTEIN, SERUM 8.1 g/dL (6.4-8.3)
[2016-12-24 17:59] LABS: ALCOHOL, BLOOD < 3 mg/dL (<10)
[2016-12-24 18:25] LABS: ACETAMINOPHEN < 1 ug/mL (1-30)
[2016-12-24] MEDS ORDERED: IOHEXOL 100 ML IV ONE (18:34)
--- NOTE | 2016-12-24 18:44 | NUR ---
Pt to CT for CT scan. Consent signed. Pt stable at this time
[2016-12-24] MEDS ORDERED: MORPHINE 4 MG/ML INJ. SYRINGE IVP ONE (18:45)
[2016-12-24 19:00] VITALS: BP 105/56; PULSE 105; RESP 16; TEMP 98.1; O2SAT 96
[2016-12-24] MEDS ORDERED: DIPHENHYDRAMINE INJ 50 MG/ML VIAL IVP PRN (19:00)
[2016-12-24] MEDS ORDERED: MORPHINE 4 MG/ML INJ. SYRINGE IVP PRN (19:00)
[2016-12-24] MEDS ORDERED: ONDANSETRON HCL 4 MG/2 ML VIAL IVP PRN (19:00)
--- NOTE | 2016-12-24 19:18 | NUR ---
Endorsed care to ABHILASH Craven
--- NOTE | 2016-12-24 19:20 | NUR ---
Per ER MD Barber, waiting on CT results to R/O acute changes prior to admitting patient to the floor.
--- NOTE | 2016-12-24 19:36 | NUR ---
Per ER MD Barber. OK to admit to floor
--- NOTE | 2016-12-24 19:37 | NUR ---
Admit to Tele 110B, Dr Mota
--- NOTE | 2016-12-24 19:40 | NUR ---
pt.admitted 2 the unit.pt.presents stable status.pt.presents iv access x2:lt.hand.lt.forearm.no c/o pain ,nausea, nor sob upon excertion.pt.utlizing room air.v/s assessed.values w/in normal limits.
--- NOTE | 2016-12-24 19:45 | NUR ---
Transfer to 110b via ACLS protocol. Licensed nurse present. IV present no signs or symptoms of infiltration.
--- NOTE | 2016-12-24 19:55 | NUR ---
Admission Note Received patient from ER with diagnosis of Abdominal Pain. Initial Plan of Care discussed-patient verbalized understanding. Family at bedside. Oriented to room, call light, pain management and safety.
[2016-12-24 20:00] VITALS: BP 105/56; PULSE 105; RESP 18; TEMP 98.1; O2SAT 94
[2016-12-24 20:16] VITALS: BP 116/66; PULSE 98; RESP 20; TEMP 98.6; O2SAT 99
[2016-12-24] MEDS ORDERED: fentaNYL 50 MCG/HR PATCH TD SCH (20:30)
[2016-12-24] MEDS ORDERED: NON-FORMULARY MEDICATION (Ranitidine Hcl (Zantac) 150 MG) PO PRN (20:30)
[2016-12-24] MEDS ORDERED: POTASSIUM CHLORIDE IV ONE ×4 (20:45)
[2016-12-24] MEDS ORDERED: MAGNESIUM SULFATE IV ONE ×4 (20:45)
[2016-12-24] MEDS ORDERED: [UNRECOGNIZED DRUG - OTHER] IV ONE ×4 (20:45)
[2016-12-24] MEDS ORDERED: DEXTROSE 50% JECT 50 ML DISP.SYRIN IVP PRN (21:00)
[2016-12-24] MEDS ORDERED: NON-FORMULARY MEDICATION (Saccharomyces Boulardii (Florastor) 250 MG) PO SCH (21:00)
[2016-12-24] MEDS: aMILoride HCL 5 MG TABLET PO SCH (21:00)
--- NOTE | 2016-12-24 21:26 | NUR ---
CONSULTATION PAGED REASON FOR CONSULTATION:ABDOMINAL PAIN WAS CONSULT CALLED?Y PERSON WHO WAS NOTIFIED:MARCO ANTONIO CONSULTING PHYSICIAN:FAITH BOO DIAMOND EXPERT SPECIALTY:GI DIAMOND EXPERT PHONE NUMBER:[phone]
--- NOTE | 2016-12-24 21:33 | NUR ---
CONSULTATION PAGED REASON FOR CONSULTATION:SYNCOPE WAS CONSULT CALLED?Y PERSON WHO WAS NOTIFIED:MARCO ANTONIO CONSULTING PHYSICIAN:JUDI TORRES PROTECTIVE SERVICES SOCIAL WORKER SPECIALTY:CARDIO PROTECTIVE SERVICES SOCIAL WORKER PHONE NUMBER:[phone]
[2016-12-24] MEDS: MORPHINE 4 MG/ML INJ. SYRINGE IVP PRN (22:35)
[2016-12-24] MEDS: DIPHENHYDRAMINE INJ 50 MG/ML VIAL IVP PRN (22:40)
[2016-12-24] MEDS: LORazepam 1 MG TABLET PO SCH (23:52)
[2016-12-24] MEDS: TEMAZEPAM 15 MG CAPSULE PO SCH (23:53)
[2016-12-25] MEDS: CYCLOBENZAPRINE HCL 10 MG TABLET (FLEXERIL) PO SCH ×2 (00:13→09:36)
[2016-12-25] MEDS: MULTIVITAMINS TAB 1 TABLET PO SCH ×4 (00:14→21:27)
[2016-12-25] MEDS: POTASSIUM CHLORIDE 10 MEQ TAB.PRT.SR PO SCH ×5 (00:14→21:27)
[2016-12-25] MEDS: CHOLECALCIFEROL (VITAMIN D3) 2,000 UNIT TABLET PO SCH ×3 (00:15→21:28)
[2016-12-25] MEDS ORDERED: LIDOCAINE 2%, 20 ML MDV ONE (00:57)
[2016-12-25 01:08] VITALS: BP 102/53; PULSE 111; RESP 18; TEMP 98.3; O2SAT 93
[2016-12-25] MEDS ORDERED: KCL 40 mEq in 100 mL (PREMIX) 100 ML IV ONE (01:19)
[2016-12-25] MEDS ORDERED: MAGNESIUM SULFATE 50 ML IV ONE (01:21)
[2016-12-25 02:51] LABS: BILIRUBIN,URINE NEGATIVE (NEGATIVE); BLOOD, URINE NEGATIVE (NEGATIVE); CLARITY/URINE CLEAR (CLEAR); COLOR,URINE YELLOW (YELLOW); GLUCOSE,URINE NEGATIVE (NEGATIVE); KETONES,URINE TRACE (NEGATIVE); LEUKOCYTE ESTERASE ,URINE NEGATIVE (NEGATIVE); NITRITE, URINE NEGATIVE (NEGATIVE); PROTEIN URINE NEGATIVE (NEGATIVE); UROBILINOGEN,URINE 0.2 (0.2-1.0)
[2016-12-25 03:09] LABS: BARBITURATE, URINE NEGATIVE (NEG <=200); BENZODIAZEPINE, URINE POSITIVE (NEG <=150); CANNABINOID, URINE NEGATIVE (NEG <=50); COCAINE, URINE NEGATIVE (NEG <=150); METHAMPHETAMINES SCREEN,URINE NEGATIVE (NEG <=500); PHENCYCLIDINE SCREEN,URINE NEGATIVE (NEG <=25); URINE AMPHETAMINE NEGATIVE (NEG <=500); URINE METHADONE NEGATIVE (NEG <=200)
[2016-12-25 03:10] LABS: OPIATE, URINE POSITIVE (NEG <=100); UR TRICYCLIC ANTIDEPRESSANTS NEGATIVE (NEG <=300); URINE OXYCODONE SCREEN NEGATIVE (NEG <=100); URINE PROPOXYPHENE SCREEN NEGATIVE (NEG <=300)
[2016-12-25] MEDS: MORPHINE 4 MG/ML INJ. SYRINGE IVP PRN ×4 (03:33→19:03)
[2016-12-25] MEDS: DIPHENHYDRAMINE INJ 50 MG/ML VIAL IVP PRN ×5 (03:40→23:46)
--- NOTE | 2016-12-25 06:00 | NUR ---
pt.had recieved the administration:[id number] ivp and benadryl.x2.i have collected the urine sample:ua only.pt.was ordered 2 recieve the administration of k+,magnesium rider:i have administered the rider.pt.provided the urine sample: stool sample has not yet been recieved.pt.clear liquids has been ordered:dietary status.call [facility] w/in pt's reach.
[2016-12-25 06:33] VITALS: BP 109/67; PULSE 66; RESP 18; TEMP 98; O2SAT 97
[2016-12-25 07:47] LABS: BASOPHILS % (AUTO) 0.3 % (0.0-2.0); EOSINOPHILS # (AUTO) 0.1 K/uL (0.0-0.4); EOSINOPHILS % (AUTO) 1.2 % (0.0-4.0); HEMATOCRIT 37.9 % (36-48); HEMOGLOBIN 12.5 g/dL (12.0-16.0); LYMPHOCYTES # (AUTO) 4.1 K/uL (1.0-5.5); LYMPHOCYTES % (AUTO) 32.9 % (20.5-51.5); MEAN CORPUSCULAR HEMOGLOBIN 28 pg (27-31); MEAN CORPUSCULAR HGB CONC 33 % (32-36); MEAN CORPUSCULAR VOLUME 84 fL (79.0-98.0); MONOCYTES # (AUTO) 0.7 K/uL (0.0-1.0); MONOCYTES % (AUTO) 5.9 % (1.7-9.3); NEUTROPHILS # (AUTO) 7.6 K/uL (1.8-7.7); NEUTROPHILS % (AUTO) 59.7 % (40.0-70.0); PLATELET COUNT (AUTO) 345 K/uL (130-430); RED BLOOD CELL COUNT(AUTO) 4.51 MIL/uL (4.2-6.2); RED CELL DISTRIBUTION WIDTH 14.3 % (9.0-15.0); WHITE BLOOD COUNT (AUTO) 12.5 K/uL (4.8-10.8)
[2016-12-25 07:52] LABS: ANION GAP 10 (5-15); CHLORIDE 101 mmol/L (98-107); GLUCOSE 70 mg/dL (70-99); POTASSIUM 3.4 mmol/L (3.5-5.1); SODIUM SERUM 139 mmol/L (136-145)
[2016-12-25 07:53] LABS: CREATININE 1.12 mg/dL (0.55-1.30); GFR AFRICAN AMERICAN 66 mL/min (>90); UREA NITROGEN, BLOOD 13 mg/dL (8-21)
[2016-12-25 07:54] LABS: CHOLESTEROL 221 mg/dL (<200); HDL CHOLESTEROL 42 mg/dL (>55); LDL CHOLESTEROL 165 mg/dL (<100); TRIGLYCERIDES 109 mg/dL (30-150)
--- NOTE | 2016-12-25 08:00 | NUR ---
initial notes rec patient awake alert with hob elevated and eating breakfast. ivl on the l forearm intact. no infiltration noted. resp easy and unlabored. c/o slight pain on the abd, pain level 3 and somewhat bloated as stated. bed in low position and side rials up and locked.call light within reached and knows when to call for assistance.will continue to monitor patient.
[2016-12-25 08:15] VITALS: BP 85/59; PULSE 80; RESP 17; TEMP 96.9
[2016-12-25 08:31] LABS: LIPASE 76 U/L (73-393); THYROID STIMULATING HORMONE 3.91 uIu/mL (0.34-4.82)
[2016-12-25 08:35] LABS: ERYTHROCYTE SEDIMENTATION RATE 28 MM/HR (0-20)
[2016-12-25] MEDS ORDERED: FAMOTIDINE 20 MG TABLET PO PRN (09:00)
[2016-12-25] MEDS: aMILoride HCL 5 MG TABLET PO SCH ×2 (09:36→21:34)
[2016-12-25] MEDS: LORazepam 1 MG TABLET PO SCH ×2 (09:37→21:27)
[2016-12-25] MEDS: SPIRONOLACTONE 50 MG TABLET (ALDACTONE) PO SCH (09:37)
[2016-12-25] MEDS: DULoxetine HCL 30 MG CAPSULE.DR (CYMBALTA) PO SCH (09:37)
[2016-12-25] MEDS: ONDANSETRON HCL 4 MG/2 ML VIAL IVP PRN ×4 (09:38→23:46)
--- NOTE | 2016-12-25 10:00 | NUR ---
rounds due meds given and went to sleep. call light within reached. reminded patient to call nurse when getting up to the br. no sob noted.
--- NOTE | 2016-12-25 12:00 | NUR ---
rounds no hypo hyperglycemic reaction noted. no acute distress noted.
[2016-12-25 12:22] VITALS: BP 106/68; PULSE 86; RESP 16; TEMP 96.8; O2SAT 92
[2016-12-25] MEDS: MAGNESIUM CHLORIDE 64 MG TABLET.DR PO SCH ×4 (12:39→21:28)
[2016-12-25] MEDS ORDERED: POTASSIUM CHLORIDE 40 MEQ, LIDOCAINE JECT 2% PF 100 MG 50 MG in NS 250 ML IV ONE (13:30)
--- NOTE | 2016-12-25 14:00 | NUR ---
rounds sleeping when rounds made. no sob noted.
[2016-12-25] MEDS ORDERED: AMITRIPTYLINE HCL 10 MG TABLET (ELAVIL) PO ONE (15:00)
--- NOTE | 2016-12-25 16:00 | NUR ---
rounds sleeping at intervals. no sob noted. call light within reached and calls for assistance when needed.
[2016-12-25 16:59] VITALS: BP 156/86; PULSE 85; RESP 18; TEMP 97.2; O2SAT 95
--- NOTE | 2016-12-25 19:00 | NUR ---
closing notes pain meds given as requested by patient. no sob noted. k rider still in progress and endorsed to incoming nurse. no sob noted
[2016-12-25] MEDS: AMITRIPTYLINE HCL 10 MG TABLET (ELAVIL) PO SCH (19:15)
[2016-12-25 20:30] VITALS: BP 102/74; PULSE 85; RESP 18; TEMP 97; O2SAT 95
--- NOTE | 2016-12-25 20:30 | NUR ---
Initial note A/O x 3, no SOB, no chest pain, c/o mild abdominal pain, pain med was given earlier. No s/s of hyper/hypoglycemia. Patient is aware of next pain med will be around 12 midnight. Skin warm to touch, IV at L FA, patent. Clear lung sounds and active bowel sounds. No edema noted, +2 radial and pedal pulses. Call light within reach, will continue to monitor patient.
[2016-12-25] MEDS: TEMAZEPAM 15 MG CAPSULE PO SCH (21:27)
[2016-12-25] MEDS: LACTOBACILLUS RHAMNOSUS GG 1 CAP CAPSULE PO SCH (21:27)
[2016-12-25] MEDS: INSULIN REGULAR, HUMAN 100 UNITS/ML, 10 ML VIAL (novoLIN R) SUBCUT PRN (21:29)
--- NOTE | 2016-12-25 22:30 | NUR ---
Rounds A/O x 3, no SOB, no chest pain, c/o mild abdominal pain, patient is aware of next pain med will be around 12 midnight. Blood sugar was 89, provided some cranberry juice. No s/s of hyper/hypoglycemia. Skin warm to touch, IV at L FA, patent. Caregiver at bedside. Call light within reach, will continue to monitor patient.
[2016-12-26] VITALS (7 sets, daily range): BP systolic 91–123; BP diastolic 56–68; PULSE 63–95; RESP 16–18; TEMP 96.3–97.8; O2SAT 93–97
--- NOTE | 2016-12-26 | NUR ---
Rounds A/O x 3, no SOB, no chest pain, c/o mild abdominal pain and mild nauseated. Morphine, Zofran, and Benadryl IVP given per patient requested. No s/s of hyper/hypoglycemia. Skin warm to touch, IV at L FA, patent. Caregiver at bedside. Call light within reach, will continue to monitor patient.
[2016-12-26] MEDS: MORPHINE 4 MG/ML INJ. SYRINGE IVP PRN ×6 (00:01→20:58)
--- NOTE | 2016-12-26 02:20 | NUR ---
Rounds Sleeping in bed. No SOB, no chest pain, no grimacing. No s/s of hyper/hypoglycemia. IV at L FA, patent. Call light within reach, will continue to monitor patient.
[2016-12-26] MEDS: ONDANSETRON HCL 4 MG/2 ML VIAL IVP PRN ×5 (04:04→21:05)
[2016-12-26] MEDS: DIPHENHYDRAMINE INJ 50 MG/ML VIAL IVP PRN ×5 (04:05→21:01)
--- NOTE | 2016-12-26 04:15 | NUR ---
Rounds A/O x 3, no SOB, no chest pain, c/o abdominal pain 04/16, Morphine, Zofran, and Benadryl IVP given per patient requested. No s/s of hyper/hypoglycemia. Skin warm to touch, IV at L FA, patent. Call light within reach, will continue to monitor patient.
[2016-12-26] MEDS: AMITRIPTYLINE HCL 10 MG TABLET (ELAVIL) PO SCH (06:18)
[2016-12-26] MEDS: INSULIN REGULAR, HUMAN 100 UNITS/ML, 10 ML VIAL (novoLIN R) SUBCUT PRN (06:23)
--- NOTE | 2016-12-26 06:50 | NUR ---
Closing note A/O x 3, no SOB, no chest pain, abdominal pain decreased. Blood sugar 102, no s/s of hyper/hypoglycemia. Skin warm to touch, IV at L FA, patent. Call light within reach, will give report to incoming nurse for stool collection for C-Diff, WBC, and culture.
[2016-12-26 06:51] LABS: ANION GAP 6 (5-15); CALCIUM 8.8 mg/dL (8.4-11.0); CHLORIDE 105 mmol/L (98-107); CREATININE 1.18 mg/dL (0.55-1.30); GLUCOSE 111 mg/dL (70-99); POTASSIUM 3.8 mmol/L (3.5-5.1); SODIUM SERUM 139 mmol/L (136-145); UREA NITROGEN, BLOOD 12 mg/dL (8-21)
[2016-12-26 06:52] LABS: BASOPHILS # (AUTO) 0.1 K/uL (0.0-0.2); BASOPHILS % (AUTO) 0.6 % (0.0-2.0); EOSINOPHILS # (AUTO) 0.3 K/uL (0.0-0.4); EOSINOPHILS % (AUTO) 2.8 % (0.0-4.0); HEMATOCRIT 36.1 % (36-48); HEMOGLOBIN 12.1 g/dL (12.0-16.0); LYMPHOCYTES # (AUTO) 3.6 K/uL (1.0-5.5); LYMPHOCYTES % (AUTO) 33.9 % (20.5-51.5); MEAN CORPUSCULAR HEMOGLOBIN 28 pg (27-31); MEAN CORPUSCULAR HGB CONC 34 % (32-36); MEAN CORPUSCULAR VOLUME 84 fL (79.0-98.0); MONOCYTES # (AUTO) 0.6 K/uL (0.0-1.0); MONOCYTES % (AUTO) 5.6 % (1.7-9.3); NEUTROPHILS % (AUTO) 57.1 % (40.0-70.0); PLATELET COUNT (AUTO) 307 K/uL (130-430); RED BLOOD CELL COUNT(AUTO) 4.27 MIL/uL (4.2-6.2); RED CELL DISTRIBUTION WIDTH 14.1 % (9.0-15.0); WHITE BLOOD COUNT (AUTO) 10.6 K/uL (4.8-10.8)
--- NOTE | 2016-12-26 07:52 | NUR ---
HANDOFF REPORT. PATIENT SLEEPING. TAKES IV MEDICATION PRN BENADRYL, ZOFRAN, AND DILAUDED.
[2016-12-26] MEDS: MAGNESIUM CHLORIDE 64 MG TABLET.DR PO SCH ×4 (10:17→21:16)
[2016-12-26] MEDS: aMILoride HCL 5 MG TABLET PO SCH ×2 (10:18→21:15)
[2016-12-26] MEDS: POTASSIUM CHLORIDE 10 MEQ TAB.PRT.SR PO SCH ×4 (10:18→21:06)
[2016-12-26] MEDS: MULTIVITAMINS TAB 1 TABLET PO SCH ×3 (10:19→21:05)
[2016-12-26] MEDS: SPIRONOLACTONE 50 MG TABLET (ALDACTONE) PO SCH (10:19)
[2016-12-26] MEDS: CHOLECALCIFEROL (VITAMIN D3) 2,000 UNIT TABLET PO SCH ×2 (10:20→21:05)
[2016-12-26] MEDS: LACTOBACILLUS RHAMNOSUS GG 1 CAP CAPSULE PO SCH ×2 (10:20→21:05)
[2016-12-26] MEDS: CYCLOBENZAPRINE HCL 10 MG TABLET (FLEXERIL) PO SCH (10:20)
[2016-12-26] MEDS: LORazepam 1 MG TABLET PO SCH ×2 (10:21→21:15)
[2016-12-26] MEDS: DULoxetine HCL 30 MG CAPSULE.DR (CYMBALTA) PO SCH (10:22)
--- NOTE | 2016-12-26 10:52 | NUR ---
PATIENT PAIN DECREASE TO 4/10. PATIENT GIVEN PO MEDS FOR AM. ALSO PATIENT REQUEST FOR TEACHING ABOUT GOAL OF DIABETES. NOTIFIED TO KEEP SUGAR BETWEEN 70 - 110. BELOW 150 PATIENT WILL NOT REQUIRE INSULIN. NOTIFIED THE ELEVATION IN BLOOD SUGAR WILL AFFECT OTHER ORGANS OF THE BODY, HEART, LIVER, PANCREASE, AND KIDNEYS. SHE VERBALIZES UNDERSTANDING.
--- NOTE | 2016-12-26 12:53 | NUR ---
Rounds to patient to provide prn benadryl, zofran, and morphine. Patient request for ambulation to bathroom. Reminded to save any stool sample. Patient verbalizes understanding.
--- NOTE | 2016-12-26 13:29 | NUR ---
Rounds to patient. Given paper tape for IV site securement. Patient given po meds. Pain reassessment 12/15.
[2016-12-26] MEDS ORDERED: POTASSIUM CHLORIDE 40 MEQ, MAGNESIUM SULFATE 4 GM, LIDOCAINE JECT 2% PF 100 MG 50 MG in... IV ONE ×4 (14:15)
--- NOTE | 2016-12-26 15:39 | NUR ---
ROUNDS TO PATIENT. IVPB OF POTASSIUM UP. GIVEN MULTIVITAMIN. NEEDS MET AT THIS TIME. PATIENT TO D/C AFTER DOSE OF POTASSIUM PER DOCTOR ELAYNE.
--- NOTE | 2016-12-26 16:08 | NUR ---
PATIENT COMPLAINTS OF BURNING AT IV SITE. ICE PROVIDED BY PHOTOSTAT OPERATOR HELPER. SOFTBALL CORE MOLDER OF SITE. PATIENT HAS INTACT IV SITE. COVERED BY ID BAND AND TEGADERM. DECREASED BASAL RATE FORTY SIX ML PER HOUR. INCREASED KVO RATE 20ML PER HOUR.
--- NOTE | 2016-12-26 16:58 | NUR ---
New bag of ice for iv site. Stable blood glucose check. Patient given po meds as ordered.
--- NOTE | 2016-12-26 18:30 | NUR ---
Call to discuss patient request for fentanyl patch with Doctor Svetlana. Agrees to one time patch. data entry specialist. Pharmacist call with request of production underwriter to remove old patch. Old patch removed. Patient Doctor directs one more dose of IV meds prior to d/c. Will notify noc nurse.
[2016-12-26] MEDS ORDERED: fentaNYL 50 MCG/HR PATCH TD ONE (19:30)
--- NOTE | 2016-12-26 19:40 | NUR ---
ROUNDS PATIENT IN BED, WATCHING TV, VITALS STABLE, NO PAIN AND DISCOMFORT AT THIS TIME. ASSESSMENT DONE AND DOCUMENTED. SEE FLOWSHEET. NEEDS ATTENDED TO. PATIENT GETTING READY FOR DISCHARGE ORDERED AFTER K RIDER MEDICATION. SAFETY MEASURES IN PLACED. BED IN LOW AND LOCKED POSITION. CALL LIGHT PLACED WITH PATIENT.
--- NOTE | 2016-12-26 20:50 | NUR ---
MEDICATIONS DUE MEDICATIONS GIVEN ORDERED, TOLERATED WELL. WILL CONTINUE TO MONITOR.
[2016-12-26] MEDS: TEMAZEPAM 15 MG CAPSULE PO SCH (21:15)
--- NOTE | 2016-12-26 21:40 | NUR ---
CLOSING NOTES PATIENT DISCHARGED HOME ORDERED ORDERED VIA WHEEELCHAIR WITH FAMILY TO THEIR PRIVATE CAR OUTSIDE. ALL NEEDS MET. IV D/CD, REVIEWED TRANSITION OF CARE INSTRUCTIONS GIVEN BY A.M. NURSE AND PATIENT VERBALIZED UNDERSTANDING. PATIENT BELONGINGS CHECKED. VITAL SIGNS STABLE, NO MORE PAIN AND DISCOMFORT AT THIS TIME.
--- NOTE | 2017-01-01 09:29 | NUR ---
Discharge Follow Up Phone Call Senior Php Developer phoned patient, , on 12/30/16, 12/31/16 and 01/01/17 and left voicemail messages with offer of assistance and Social Service contact information. No further calls will be attempted.
== END 2016-12-26 21:40 | disposition home or self-care (01) | DRG 312 ==
LOC: SED 16:21 → STU 18:48 → SMU 12-25 13:00
PROVIDERS: ADMIT Internal Medicine; ATTEND Internal Medicine
DX: R55 Syncope and collapse (principal); Z68.41 Body mass index [BMI] 40.0-44.9, adult; A08.4 Viral intestinal infection, unspecified; M79.7 Fibromyalgia; F32.9 Major depressive disorder, single episode, unspecified; F41.9 Anxiety disorder, unspecified; G89.4 Chronic pain syndrome; E87.6 Hypokalemia; E83.42 Hypomagnesemia; E66.01 Morbid (severe) obesity due to excess calories; K76.0 Fatty (change of) liver, not elsewhere classified; J44.9 Chronic obstructive pulmonary disease, unspecified; I12.9 Hypertensive chronic kidney disease with stage 1 through stage 4 chronic kidney disease, or unspecified chronic kidney disease; M10.9 Gout, unspecified; N18.9 Chronic kidney disease, unspecified; Z80.0 Family history of malignant neoplasm of digestive organs; Z80.8 Family history of malignant neoplasm of other organs or systems; Z79.899 Other long term (current) drug therapy; Z88.0 Allergy status to penicillin; Z88.8 Allergy status to other drugs, medicaments and biological substances; Z91.018 Allergy to other foods
CPT/HCPCS: 36415; 70450-TC; 71010; 80048; 80053; 80061; 80307; 81003; 81025; 82962; 83036; 83690-TC; 83735-TC; 83880; 84100-TC; 84443-TC; 84484; 84703; 85025; 85610-TC; 85651-TC; 85730-TC; 87081; 93005; 93306; 96361; 96365; 96366; 96375; 99285; G0480; G0481; G0482; J1170; J1200; J1815; J2001; J2270; J2405; J3475; J3480; J7030; J7040; J7050; Q9967

== ENCOUNTER 2017-01-08 15:57 | Emergency (ER) | payer OTHER ==
[~2017-01-08] VITALS: Ht 162.6 cm; Wt 108.9 kg
[~2017-01-08 15:57] MED LIST changes: -AMIL5TAB9; -CLON0.5T4 PO; -COLC0.6T67; -COLCHINE; -CYCL-10 PO; -CYCLOBENZAPINE; -CYM30; -DULO60CA41; -FENT1PAT4; -FERR236T; -HYDR-1189 PO; -HYDR-4100 PO; -IRON1CAP18; -LORA1TAB; -MAGN400T10 PO; -METR500T PO; -MUPI1OIN4; -NORCO5; -POTA20PA PO; -POTA20PA4; -POTA20TA83; -PRAV40TA PO; -PRAV40TA63; -PRO40 PO; -SPIR25TA PO; -VANC125C10 PO
[2017-01-08 16:11] VITALS: BP_SYST 110
[2017-01-08 16:20] LABS: BASOPHILS # (AUTO) 0.1 K/uL (0.0-0.2); BASOPHILS % (AUTO) 0.6 % (0.0-2.0); EOSINOPHILS # (AUTO) 0.1 K/uL (0.0-0.4); EOSINOPHILS % (AUTO) 0.5 % (0.0-4.0); HEMATOCRIT 41.7 % (36-48); HEMOGLOBIN 13.3 g/dL (12.0-16.0); LYMPHOCYTES # (AUTO) 2.4 K/uL (1.0-5.5); LYMPHOCYTES % (AUTO) 17.8 % (20.5-51.5); MEAN CORPUSCULAR HEMOGLOBIN 27 pg (27-31); MEAN CORPUSCULAR HGB CONC 32 % (32-36); MEAN CORPUSCULAR VOLUME 84 fL (79.0-98.0); MONOCYTES # (AUTO) 0.3 K/uL (0.0-1.0); MONOCYTES % (AUTO) 2.2 % (1.7-9.3); NEUTROPHILS # (AUTO) 10.7 K/uL (1.8-7.7); NEUTROPHILS % (AUTO) 78.9 % (40.0-70.0); PLATELET COUNT (AUTO) 380 K/uL (130-430); RED BLOOD CELL COUNT(AUTO) 4.99 MIL/uL (4.2-6.2); RED CELL DISTRIBUTION WIDTH 14.9 % (9.0-15.0); WHITE BLOOD COUNT (AUTO) 13.6 K/uL (4.8-10.8)
[2017-01-08] MEDS ORDERED: MAGNESIUM SULFATE 50 ML IV ONE ×2 (16:30→17:45)
[2017-01-08] MEDS ORDERED: NACL 0.9% 1,000 ML IV ONE ×2 (16:30)
[2017-01-08] MEDS ORDERED: DIPHENHYDRAMINE INJ 50 MG/ML VIAL IVP ONE ×3 (16:30→21:30)
[2017-01-08] MEDS ORDERED: HYDROmorphone 1 MG INJ. 1 MG/ML AMPUL IVP ONE (16:30)
[2017-01-08 16:35] LABS: CALCIUM 9.3 mg/dL (8.4-11.0); CREATININE 1.14 mg/dL (0.55-1.30); POTASSIUM 4.2 mmol/L (3.5-5.1)
[2017-01-08 16:39] LABS: PHOSPHORUS 2.9 mg/dL (2.7-4.5)
[2017-01-08 17:11] LABS: BILIRUBIN,URINE NEGATIVE (NEGATIVE); BLOOD, URINE NEGATIVE (NEGATIVE); CLARITY/URINE CLEAR (CLEAR); COLOR,URINE YELLOW (YELLOW); GLUCOSE,URINE NEGATIVE (NEGATIVE); KETONES,URINE NEGATIVE (NEGATIVE); LEUKOCYTE ESTERASE ,URINE NEGATIVE (NEGATIVE); NITRITE, URINE NEGATIVE (NEGATIVE); PH,URINE 8.5 (5.0-8.0); PROTEIN URINE NEGATIVE (NEGATIVE); UROBILINOGEN,URINE 0.2 (0.2-1.0)
[2017-01-08] MEDS ORDERED: ONDANSETRON HCL 4 MG/2 ML VIAL IVP ONE ×2 (17:45→21:30)
[2017-01-08] MEDS ORDERED: MORPHINE 4 MG/ML INJ. SYRINGE IVP ONE (17:45)
[2017-01-08] MEDS ORDERED: MORPHINE SULFATE 10 MG/ML VIAL IVP ONE (21:30)
[2017-01-08 21:50] VITALS: BP_SYST 101
== END 2017-01-08 21:50 | disposition home or self-care (01) ==
LOC: SED 15:57
DX: E83.42 Hypomagnesemia (principal); M10.9 Gout, unspecified; F41.9 Anxiety disorder, unspecified; J44.9 Chronic obstructive pulmonary disease, unspecified; I10 Essential (primary) hypertension; Z88.0 Allergy status to penicillin; Z91.02 Food additives allergy status; Z79.899 Other long term (current) drug therapy
CPT/HCPCS: 36415; 80048; 81003; 83735; 84100; 85025; 96365; 96366; 96375; 96376; 99285; J1170; J1200; J2270 ×2; J2405; J3475; J7030

== ENCOUNTER 2017-01-15 19:32 | Emergency (ER) | payer OTHER ==
[~2017-01-15] VITALS: Ht 162.6 cm; Wt 108.9 kg
[2017-01-15 19:34] VITALS: BP_SYST 109
[2017-01-15] MEDS ORDERED: NACL 0.9% 1,000 ML IV ONE (20:01)
[2017-01-15] MEDS ORDERED: KETOROLAC TROMETHAMINE 30 MG VIAL IVP ONE (20:15)
[2017-01-15 20:23] LABS: BASOPHILS # (AUTO) 0.1 K/uL (0.0-0.2); BASOPHILS % (AUTO) 0.6 % (0.0-2.0); EOSINOPHILS # (AUTO) 0.2 K/uL (0.0-0.4); EOSINOPHILS % (AUTO) 1.6 % (0.0-4.0); HEMATOCRIT 39.8 % (36-48); HEMOGLOBIN 12.8 g/dL (12.0-16.0); LYMPHOCYTES % (AUTO) 23.7 % (20.5-51.5); MEAN CORPUSCULAR HEMOGLOBIN 27 pg (27-31); MEAN CORPUSCULAR HGB CONC 32 % (32-36); MEAN CORPUSCULAR VOLUME 85 fL (79.0-98.0); MONOCYTES # (AUTO) 0.7 K/uL (0.0-1.0); MONOCYTES % (AUTO) 5.2 % (1.7-9.3); NEUTROPHILS # (AUTO) 8.8 K/uL (1.8-7.7); NEUTROPHILS % (AUTO) 68.9 % (40.0-70.0); PLATELET COUNT (AUTO) 431 K/uL (130-430); RED BLOOD CELL COUNT(AUTO) 4.72 MIL/uL (4.2-6.2); RED CELL DISTRIBUTION WIDTH 15.2 % (9.0-15.0); WHITE BLOOD COUNT (AUTO) 12.8 K/uL (4.8-10.8)
[2017-01-15 20:38] LABS: CALCIUM 9.6 mg/dL (8.4-11.0); CREATININE 0.99 mg/dL (0.55-1.30); POTASSIUM 3.6 mmol/L (3.5-5.1)
[2017-01-15 20:42] LABS: ALBUMIN 4.1 g/dL (3.4-4.8); TOTAL BILIRUBIN 0.5 mg/dL (0.0-1.0); TOTAL PROTEIN, SERUM 8.1 g/dL (6.4-8.3); URIC ACID 4.9 mg/dL (2.4-7.0)
[2017-01-15 21:12] LABS: BILIRUBIN,URINE NEGATIVE (NEGATIVE); BLOOD, URINE NEGATIVE (NEGATIVE); CLARITY/URINE CLEAR (CLEAR); COLOR,URINE YELLOW (YELLOW); GLUCOSE,URINE NEGATIVE (NEGATIVE); KETONES,URINE NEGATIVE (NEGATIVE); LEUKOCYTE ESTERASE ,URINE NEGATIVE (NEGATIVE); NITRITE, URINE NEGATIVE (NEGATIVE); PROTEIN URINE NEGATIVE (NEGATIVE); UROBILINOGEN,URINE 0.2 (0.2-1.0)
[2017-01-15] MEDS ORDERED: DIPHENHYDRAMINE INJ 50 MG/ML VIAL IVP ONE (21:45)
[2017-01-15] MEDS ORDERED: MORPHINE 4 MG/ML INJ. SYRINGE IVP ONE (21:45)
[2017-01-15 21:48] LABS: ERYTHROCYTE SEDIMENTATION RATE 26 MM/HR (0-20)
[2017-01-15] MEDS ORDERED: COLCHICINE 0.6 MG TABLET PO ONE (22:30)
[2017-01-15] MEDS ORDERED: MAGNESIUM SULFATE 50 ML IV ONE (22:30)
[2017-01-15] MEDS ORDERED: COLCHICINE 0.6 MG TABLET ONE (23:00)
[2017-01-16 00:28] VITALS: BP_SYST 118
== END 2017-01-16 00:28 | disposition home or self-care (01) ==
LOC: SED 19:32
DX: M25.561 Pain in right knee (principal); M79.642 Pain in left hand; M10.9 Gout, unspecified; I10 Essential (primary) hypertension; F41.9 Anxiety disorder, unspecified; J44.9 Chronic obstructive pulmonary disease, unspecified; Z88.0 Allergy status to penicillin; Z91.02 Food additives allergy status; Z79.899 Other long term (current) drug therapy
CPT/HCPCS: 29505; 36415; 73564; 80053; 81003; 83605; 83735; 84550; 85025; 85651; 87040; 87086; 96361; 96365; 96366; 96375; 99285; J1200; J1885; J2270; J3475; J7030

== ENCOUNTER 2017-01-20 00:28 | Emergency (ER) | payer OTHER ==
[~2017-01-20] VITALS: Ht 160 cm; Wt 113.4 kg
[2017-01-20 00:30] VITALS: BP_SYST 127
[2017-01-20] MEDS ORDERED: DIPHENHYDRAMINE INJ 50 MG/ML VIAL IVP ONE (01:30)
[2017-01-20] MEDS ORDERED: MORPHINE 2 MG/ML INJ. SYRINGE IVP ONE (01:30)
[2017-01-20 01:31] LABS: BASOPHILS # (AUTO) 0.1 K/uL (0.0-0.2); EOSINOPHILS # (AUTO) 0.2 K/uL (0.0-0.4); EOSINOPHILS % (AUTO) 1.6 % (0.0-4.0); HEMATOCRIT 45.5 % (36-48); HEMOGLOBIN 14.4 g/dL (12.0-16.0); LYMPHOCYTES # (AUTO) 3.8 K/uL (1.0-5.5); LYMPHOCYTES % (AUTO) 30.6 % (20.5-51.5); MEAN CORPUSCULAR HEMOGLOBIN 27 pg (27-31); MEAN CORPUSCULAR HGB CONC 32 % (32-36); MEAN CORPUSCULAR VOLUME 85 fL (79.0-98.0); MONOCYTES # (AUTO) 0.5 K/uL (0.0-1.0); MONOCYTES % (AUTO) 4.2 % (1.7-9.3); NEUTROPHILS # (AUTO) 7.8 K/uL (1.8-7.7); NEUTROPHILS % (AUTO) 62.6 % (40.0-70.0); PLATELET COUNT (AUTO) 451 K/uL (130-430); RED BLOOD CELL COUNT(AUTO) 5.39 MIL/uL (4.2-6.2); RED CELL DISTRIBUTION WIDTH 15.1 % (9.0-15.0); WHITE BLOOD COUNT (AUTO) 12.4 K/uL (4.8-10.8)
[2017-01-20 01:39] LABS: CALCIUM 9.4 mg/dL (8.4-11.0); CREATININE 1.09 mg/dL (0.55-1.30)
[2017-01-20] MEDS ORDERED: LORazepam 2 MG/ML VIAL (FOR ER USE) IVP ONE (01:45)
[2017-01-20] MEDS ORDERED: NACL 0.9% 1,000 ML IV ONE (01:45)
[2017-01-20] MEDS ORDERED: metroNIDAZOLE 500 MG TABLET PO ONE (01:45)
[2017-01-20] MEDS ORDERED: KETOROLAC TROMETHAMINE 30 MG VIAL IVP ONE (01:45)
[2017-01-20 01:51] LABS: ALBUMIN 4.1 g/dL (3.4-4.8); TOTAL BILIRUBIN 0.4 mg/dL (0.0-1.0); TOTAL PROTEIN, SERUM 8.1 g/dL (6.4-8.3)
[2017-01-20] MEDS ORDERED: PANTOPRAZOLE SODIUM 40 MG/VIAL (PROTONIX) IVP ONE (02:45)
[2017-01-20] MEDS ORDERED: PROCHLORPERAZINE EDISYLATE 10 MG/2 ML VIAL IVP ONE (02:45)
[2017-01-20 03:04] VITALS: BP_SYST 127
== END 2017-01-20 03:04 | disposition home or self-care (01) ==
LOC: SED 00:28
DX: K52.9 Noninfective gastroenteritis and colitis, unspecified (principal)
CPT/HCPCS: 36415; 80053; 83690; 83735; 85025; 96361; 96374; 96375; 99284; C9113; J0780; J1200; J1885; J2060; J2270; J7030

== ENCOUNTER 2017-01-21 20:32 | Inpatient (IN) | payer OTHER ==
[~2017-01-21] VITALS: Ht 162.6 cm; Wt 112.9 kg
[2017-01-21 20:46] VITALS: BP_SYST 160
[2017-01-21] MEDS ORDERED: NACL 0.9% 1,000 ML IV ONE (21:20)
[2017-01-21] MEDS ORDERED: DIPHENHYDRAMINE INJ 50 MG/ML VIAL IVP ONE (21:30)
[2017-01-21] MEDS ORDERED: MORPHINE 2 MG/ML INJ. SYRINGE IVP ONE (21:30)
[2017-01-21] MEDS ORDERED: LORazepam 2 MG/ML VIAL (FOR ER USE) IVP ONE (21:45)
[2017-01-21 21:53] LABS: EOSINOPHILS # (AUTO) 0.1 K/uL (0.0-0.4); HEMOGLOBIN 13.6 g/dL (12.0-16.0); MEAN CORPUSCULAR HEMOGLOBIN 27 pg (27-31); MEAN CORPUSCULAR HGB CONC 32 % (32-36)
[2017-01-21 22:02] LABS: BASOPHILS # (AUTO) 0.1 K/uL (0.0-0.2); BASOPHILS % (AUTO) 1.2 % (0.0-2.0); EOSINOPHILS % (AUTO) 1.6 % (0.0-4.0); HEMATOCRIT 42.2 % (36-48); LYMPHOCYTES # (AUTO) 2.7 K/uL (1.0-5.5); LYMPHOCYTES % (AUTO) 29.1 % (20.5-51.5); MEAN CORPUSCULAR VOLUME 84 fL (79.0-98.0); MONOCYTES # (AUTO) 0.2 K/uL (0.0-1.0); MONOCYTES % (AUTO) 2.6 % (1.7-9.3); NEUTROPHILS % (AUTO) 65.5 % (40.0-70.0); PLATELET COUNT (AUTO) 395 K/uL (130-430); RED BLOOD CELL COUNT(AUTO) 5.03 MIL/uL (4.2-6.2); RED CELL DISTRIBUTION WIDTH 15.1 % (9.0-15.0); WHITE BLOOD COUNT (AUTO) 9.1 K/uL (4.8-10.8)
[2017-01-21] MEDS ORDERED: KETOROLAC TROMETHAMINE 30 MG VIAL IVP ONE (22:15)
[2017-01-21 22:20] LABS: ALBUMIN 4.5 g/dL (3.4-4.8); CALCIUM 9.7 mg/dL (8.4-11.0); CREATININE 1.19 mg/dL (0.55-1.30); POTASSIUM 3.6 mmol/L (3.5-5.1); TOTAL BILIRUBIN 0.7 mg/dL (0.0-1.0); TOTAL PROTEIN, SERUM 8.3 g/dL (6.4-8.3)
[2017-01-21] MEDS ORDERED: LOPERAMIDE HCL 2 MG CAPSULE PO PRN (22:45)
[2017-01-21] MEDS ORDERED: MAGNESIUM SULFATE 4 GM in D5W 250 ML IV ONE (22:45)
[2017-01-21] MEDS: LR 1,000 ML IV SCH (22:45)
[2017-01-21] MEDS ORDERED: LORazepam 1 MG TABLET PO PRN (22:45)
[2017-01-21 22:51] VITALS: BP_SYST 135
[2017-01-21] MEDS ORDERED: fentaNYL 50 MCG/HR PATCH TD SCH (23:00)
[2017-01-21] MEDS ORDERED: MAGNESIUM SULFATE 100 ML IV ONE (23:57)
[2017-01-22] MEDS ORDERED: metroNIDAZOLE 500 mg/NS 200 ML IV ONE (00:16)
[2017-01-22] MEDS: metroNIDAZOLE 500 mg/NS 100 ML IV SCH ×4 (00:20→22:05)
[2017-01-22] MEDS: LACTOBACILLUS RHAMNOSUS GG 1 CAP CAPSULE PO SCH ×3 (00:49→21:40)
[2017-01-22] MEDS: VANCOMYCIN HCL 250 MG CAPSULE PO SCH ×5 (00:50→21:40)
[2017-01-22] MEDS: POTASSIUM CHLORIDE 20 MEQ TAB.PRT.SR PO SCH ×5 (00:51→21:39)
[2017-01-22] MEDS: TEMAZEPAM 15 MG CAPSULE PO SCH ×2 (00:51→21:40)
[2017-01-22] MEDS: SPIRONOLACTONE 50 MG TABLET (ALDACTONE) PO SCH ×2 (00:56→09:16)
[2017-01-22] MEDS: DIPHENHYDRAMINE INJ 50 MG/ML VIAL IVP PRN ×6 (01:25→21:56)
[2017-01-22] MEDS: MORPHINE 4 MG/ML INJ. SYRINGE IVP PRN ×6 (01:26→21:57)
[2017-01-22] MEDS: ONDANSETRON HCL 4 MG/2 ML VIAL IVP PRN ×6 (01:27→21:56)
[2017-01-22 05:01] VITALS: BP_SYST 114
[2017-01-22] MEDS: LR 1,000 ML IV SCH ×2 (05:22→17:52)
[2017-01-22] MEDS: CYCLOBENZAPRINE HCL 10 MG TABLET (FLEXERIL) PO SCH (09:16)
[2017-01-22] MEDS: aMILoride HCL 5 MG TABLET PO SCH ×2 (09:17→21:40)
[2017-01-22] MEDS: CHOLECALCIFEROL (VITAMIN D-3) 400 UNIT TABLET PO SCH ×2 (09:17→21:51)
[2017-01-22] MEDS: DULoxetine HCL 30 MG CAPSULE.DR (CYMBALTA) PO SCH (09:17)
[2017-01-22] MEDS: MAGNESIUM CHLORIDE 64 MG TABLET.DR PO SCH ×4 (09:29→21:40)
[2017-01-22 09:51] LABS: BILIRUBIN,URINE NEGATIVE (NEGATIVE); BLOOD, URINE NEGATIVE (NEGATIVE); CLARITY/URINE CLEAR (CLEAR); COLOR,URINE YELLOW (YELLOW); GLUCOSE,URINE NEGATIVE (NEGATIVE); KETONES,URINE NEGATIVE (NEGATIVE); LEUKOCYTE ESTERASE ,URINE TRACE (NEGATIVE); NITRITE, URINE NEGATIVE (NEGATIVE); PROTEIN URINE NEGATIVE (NEGATIVE); UROBILINOGEN,URINE 0.2 (0.2-1.0)
[2017-01-22 09:58] LABS: BACTERIA,URINE FEW /HPF (None Seen); RBC,URINE 0-3 /HPF (0-3)
[2017-01-22 12:53] VITALS: BP_SYST 105
[2017-01-22 13:05] LABS: BASOPHILS % (AUTO) 0.7 % (0.0-2.0); EOSINOPHILS # (AUTO) 0.3 K/uL (0.0-0.4); EOSINOPHILS % (AUTO) 4.1 % (0.0-4.0); HEMATOCRIT 36.3 % (36-48); HEMOGLOBIN 11.8 g/dL (12.0-16.0); LYMPHOCYTES # (AUTO) 2.6 K/uL (1.0-5.5); LYMPHOCYTES % (AUTO) 40.2 % (20.5-51.5); MEAN CORPUSCULAR HEMOGLOBIN 28 pg (27-31); MEAN CORPUSCULAR HGB CONC 33 % (32-36); MEAN CORPUSCULAR VOLUME 84 fL (79.0-98.0); MONOCYTES # (AUTO) 0.4 K/uL (0.0-1.0); MONOCYTES % (AUTO) 5.9 % (1.7-9.3); NEUTROPHILS # (AUTO) 3.2 K/uL (1.8-7.7); NEUTROPHILS % (AUTO) 49.1 % (40.0-70.0); PLATELET COUNT (AUTO) 318 K/uL (130-430); RED CELL DISTRIBUTION WIDTH 15.2 % (9.0-15.0); WHITE BLOOD COUNT (AUTO) 6.5 K/uL (4.8-10.8)
[2017-01-22 13:19] LABS: CALCIUM 9.1 mg/dL (8.4-11.0); CREATININE 1.31 mg/dL (0.55-1.30); POTASSIUM 3.7 mmol/L (3.5-5.1)
[2017-01-22 16:29] VITALS: BP_SYST 125
[2017-01-22 19:55] VITALS: BP_SYST 103
[2017-01-22] MEDS ORDERED: TEMAZEPAM 15 MG CAPSULE PO SCH ×2 (21:00)
[2017-01-22] MEDS ORDERED: CHOLECALCIFEROL (VITAMIN D-3) 400 UNIT TABLET ONE (22:06)
[2017-01-23] VITALS (10 sets, daily range): BP systolic 94–140
[2017-01-23] MEDS: DIPHENHYDRAMINE INJ 50 MG/ML VIAL IVP PRN ×6 (02:00→21:55)
[2017-01-23] MEDS: ONDANSETRON HCL 4 MG/2 ML VIAL IVP PRN ×6 (02:00→21:54)
[2017-01-23] MEDS: MORPHINE 4 MG/ML INJ. SYRINGE IVP PRN ×6 (02:01→21:58)
[2017-01-23] MEDS: LR 1,000 ML IV SCH ×2 (05:46→17:54)
[2017-01-23] MEDS: metroNIDAZOLE 500 mg/NS 100 ML IV SCH ×3 (05:56→21:54)
[2017-01-23] MEDS: VANCOMYCIN HCL 250 MG CAPSULE PO SCH ×4 (08:49→21:51)
[2017-01-23] MEDS: POTASSIUM CHLORIDE 20 MEQ TAB.PRT.SR PO SCH ×4 (08:50→21:52)
[2017-01-23] MEDS: SPIRONOLACTONE 50 MG TABLET (ALDACTONE) PO SCH (08:50)
[2017-01-23] MEDS: LACTOBACILLUS RHAMNOSUS GG 1 CAP CAPSULE PO SCH ×2 (08:50→21:52)
[2017-01-23] MEDS: CYCLOBENZAPRINE HCL 10 MG TABLET (FLEXERIL) PO SCH (08:51)
[2017-01-23] MEDS: DULoxetine HCL 30 MG CAPSULE.DR (CYMBALTA) PO SCH (08:51)
[2017-01-23] MEDS: MAGNESIUM CHLORIDE 64 MG TABLET.DR PO SCH ×4 (09:02→21:53)
[2017-01-23] MEDS: aMILoride HCL 5 MG TABLET PO SCH ×2 (09:03→21:54)
[2017-01-23] MEDS ORDERED: COMMUNICATION ORDER XX ONE (09:30)
[2017-01-23] MEDS ORDERED: CHOLECALCIFEROL (VITAMIN D3) 2,000 UNIT TABLET PO ONE (10:00)
[2017-01-23 10:25] LABS: BASOPHILS # (AUTO) 0.1 K/uL (0.0-0.2); BASOPHILS % (AUTO) 0.8 % (0.0-2.0); EOSINOPHILS # (AUTO) 0.4 K/uL (0.0-0.4); HEMATOCRIT 35.6 % (36-48); HEMOGLOBIN 11.5 g/dL (12.0-16.0); LYMPHOCYTES # (AUTO) 2.3 K/uL (1.0-5.5); LYMPHOCYTES % (AUTO) 33.5 % (20.5-51.5); MEAN CORPUSCULAR HEMOGLOBIN 27 pg (27-31); MEAN CORPUSCULAR HGB CONC 32 % (32-36); MEAN CORPUSCULAR VOLUME 85 fL (79.0-98.0); MONOCYTES # (AUTO) 0.6 K/uL (0.0-1.0); MONOCYTES % (AUTO) 8.5 % (1.7-9.3); NEUTROPHILS # (AUTO) 3.4 K/uL (1.8-7.7); NEUTROPHILS % (AUTO) 51.2 % (40.0-70.0); PLATELET COUNT (AUTO) 297 K/uL (130-430); RED CELL DISTRIBUTION WIDTH 15.4 % (9.0-15.0); WHITE BLOOD COUNT (AUTO) 6.8 K/uL (4.8-10.8)
[2017-01-23 10:26] LABS: CALCIUM 8.9 mg/dL (8.4-11.0); CREATININE 1.12 mg/dL (0.55-1.30); POTASSIUM 4.3 mmol/L (3.5-5.1)
[2017-01-23] MEDS ORDERED: MAGNESIUM SULFATE 4 GM in D5W 250 ML IV ONE (16:00)
[2017-01-23] MEDS: CHOLECALCIFEROL (VITAMIN D3) 2,000 UNIT TABLET PO SCH (21:51)
[2017-01-23] MEDS: TEMAZEPAM 15 MG CAPSULE PO SCH (21:52)
[2017-01-24] VITALS (7 sets, daily range): BP systolic 94–127
[2017-01-24] MEDS: ONDANSETRON HCL 4 MG/2 ML VIAL IVP PRN ×6 (01:58→21:52)
[2017-01-24] MEDS: DIPHENHYDRAMINE INJ 50 MG/ML VIAL IVP PRN ×6 (01:58→21:52)
[2017-01-24] MEDS: MORPHINE 4 MG/ML INJ. SYRINGE IVP PRN ×6 (01:59→21:53)
[2017-01-24] MEDS: metroNIDAZOLE 500 mg/NS 100 ML IV SCH ×3 (05:58→21:08)
[2017-01-24 07:18] LABS: CREATININE 1.08 mg/dL (0.55-1.30); POTASSIUM 4.2 mmol/L (3.5-5.1)
[2017-01-24] MEDS: LR 1,000 ML IV SCH (09:26)
[2017-01-24] MEDS: VANCOMYCIN HCL 250 MG CAPSULE PO SCH ×4 (10:00→21:09)
[2017-01-24] MEDS: CYCLOBENZAPRINE HCL 10 MG TABLET (FLEXERIL) PO SCH (10:00)
[2017-01-24] MEDS: POTASSIUM CHLORIDE 20 MEQ TAB.PRT.SR PO SCH ×4 (10:00→21:10)
[2017-01-24] MEDS: LACTOBACILLUS RHAMNOSUS GG 1 CAP CAPSULE PO SCH ×2 (10:01→21:10)
[2017-01-24] MEDS: CHOLECALCIFEROL (VITAMIN D3) 2,000 UNIT TABLET PO SCH ×2 (10:01→21:10)
[2017-01-24] MEDS: DULoxetine HCL 30 MG CAPSULE.DR (CYMBALTA) PO SCH (10:01)
[2017-01-24] MEDS: SPIRONOLACTONE 50 MG TABLET (ALDACTONE) PO SCH (10:01)
[2017-01-24] MEDS: MAGNESIUM CHLORIDE 64 MG TABLET.DR PO SCH ×4 (10:11→21:09)
[2017-01-24] MEDS: aMILoride HCL 5 MG TABLET PO SCH ×2 (10:11→21:09)
[2017-01-24] MEDS ORDERED: FENT1PAT6 TP (14:42)
[2017-01-24] MEDS ORDERED: MORP15TA60 PO (14:44)
[2017-01-24] MEDS: TEMAZEPAM 15 MG CAPSULE PO SCH (21:10)
== END 2017-01-24 23:10 | disposition home or self-care (01) | DRG 372 ==
LOC: SED 20:32 → SMU 22:09
PROVIDERS: ADMIT Internal Medicine; ATTEND Internal Medicine
DX: A04.7 Enterocolitis due to Clostridium difficile (principal); E87.1 Hypo-osmolality and hyponatremia; Z68.41 Body mass index [BMI] 40.0-44.9, adult; A08.4 Viral intestinal infection, unspecified; M11.20 Other chondrocalcinosis, unspecified site; M79.7 Fibromyalgia; F32.9 Major depressive disorder, single episode, unspecified; E66.01 Morbid (severe) obesity due to excess calories; I10 Essential (primary) hypertension; J44.9 Chronic obstructive pulmonary disease, unspecified; E83.42 Hypomagnesemia; G89.4 Chronic pain syndrome; F41.9 Anxiety disorder, unspecified; Z87.440 Personal history of urinary (tract) infections; Z88.0 Allergy status to penicillin; Z91.018 Allergy to other foods; Z91.048 Other nonmedicinal substance allergy status; Z79.899 Other long term (current) drug therapy
CPT/HCPCS: 36415; 80048; 80053; 81000-TC; 82272; 82306; 83690-TC; 83735-TC; 85025; 87045-TC; 87046; 87081; 87086; 87230-TC; 89055; 96374; 96375; 99285; J1200; J1885; J2060; J2270; J2405; J3475; J3490; J7030; J7050; J7060; J7120

== ENCOUNTER 2017-02-02 15:59 | Emergency (ER) | payer OTHER ==
[~2017-02-02] VITALS: Ht 162.6 cm; Wt 108.9 kg
[~2017-02-02 15:59] MED LIST changes: +FENT1PAT6 TP; +MORP15TA60 PO
[2017-02-02 16:09] VITALS: BP_SYST 118
[2017-02-02 16:26] LABS: BASOPHILS # (AUTO) 0.1 K/uL (0.0-0.2); BASOPHILS % (AUTO) 1.4 % (0.0-2.0); EOSINOPHILS # (AUTO) 0.1 K/uL (0.0-0.4); EOSINOPHILS % (AUTO) 1.3 % (0.0-4.0); HEMATOCRIT 41.4 % (36-48); HEMOGLOBIN 13.5 g/dL (12.0-16.0); LYMPHOCYTES % (AUTO) 25.9 % (20.5-51.5); MEAN CORPUSCULAR HEMOGLOBIN 27 pg (27-31); MEAN CORPUSCULAR HGB CONC 33 % (32-36); MEAN CORPUSCULAR VOLUME 83 fL (79.0-98.0); MONOCYTES # (AUTO) 0.4 K/uL (0.0-1.0); MONOCYTES % (AUTO) 5.3 % (1.7-9.3); NEUTROPHILS # (AUTO) 5.1 K/uL (1.8-7.7); NEUTROPHILS % (AUTO) 66.1 % (40.0-70.0); PLATELET COUNT (AUTO) 388 K/uL (130-430); RED BLOOD CELL COUNT(AUTO) 5.01 MIL/uL (4.2-6.2); RED CELL DISTRIBUTION WIDTH 14.8 % (9.0-15.0); WHITE BLOOD COUNT (AUTO) 7.7 K/uL (4.8-10.8)
[2017-02-02 16:38] LABS: CALCIUM 9.2 mg/dL (8.4-11.0); CREATININE 1.16 mg/dL (0.55-1.30); POTASSIUM 3.3 mmol/L (3.5-5.1)
[2017-02-02 16:43] LABS: ALBUMIN 4.2 g/dL (3.4-4.8); TOTAL BILIRUBIN 0.6 mg/dL (0.0-1.0); TOTAL PROTEIN, SERUM 7.8 g/dL (6.4-8.3)
[2017-02-02 17:41] LABS: BILIRUBIN,URINE NEGATIVE (NEGATIVE); BLOOD, URINE NEGATIVE (NEGATIVE); CLARITY/URINE HAZY (CLEAR); COLOR,URINE YELLOW (YELLOW); GLUCOSE,URINE NEGATIVE (NEGATIVE); KETONES,URINE NEGATIVE (NEGATIVE); LEUKOCYTE ESTERASE ,URINE TRACE (NEGATIVE); NITRITE, URINE NEGATIVE (NEGATIVE); PROTEIN URINE NEGATIVE (NEGATIVE); UROBILINOGEN,URINE 0.2 (0.2-1.0)
[2017-02-02 17:58] LABS: BACTERIA,URINE MANY /HPF (None Seen); MUCUS,URINE 2+ /LPF (None Seen); RBC,URINE 0-3 /HPF (0-3)
[2017-02-02] MEDS ORDERED: DIPHENHYDRAMINE INJ 50 MG/ML VIAL IVP ONE ×2 (19:15→23:00)
[2017-02-02] MEDS ORDERED: MORPHINE 4 MG/ML INJ. SYRINGE IVP ONE (19:15)
[2017-02-02] MEDS ORDERED: ONDANSETRON HCL 4 MG/2 ML VIAL IVP ONE (19:15)
[2017-02-02] MEDS ORDERED: MAGNESIUM SULFATE 1 GM/2 ML VIAL IVP ONE (19:15)
[2017-02-02] MEDS ORDERED: POTASSIUM CHLORIDE 20 MEQ TAB.PRT.SR PO ONE (19:45)
[2017-02-02] MEDS ORDERED: MAGNESIUM SULFATE 50 ML IV ONE ×2 (19:45→20:00)
[2017-02-02] MEDS ORDERED: MORPHINE 2 MG/ML INJ. SYRINGE IVP ONE (23:00)
[2017-02-02 23:50] VITALS: BP_SYST 112
== END 2017-02-02 23:50 | disposition home or self-care (01) ==
LOC: SED 15:59
DX: E83.42 Hypomagnesemia (principal); E26.81 Bartter's syndrome; J44.9 Chronic obstructive pulmonary disease, unspecified; I10 Essential (primary) hypertension; F41.9 Anxiety disorder, unspecified; M10.9 Gout, unspecified; Z88.0 Allergy status to penicillin; Z91.02 Food additives allergy status
CPT/HCPCS: 36415; 80053; 81000; 83735; 85025; 87086; 96365; 96366; 96375; 96376; 99285; J1200; J2270 ×2; J2405; J3475

== ENCOUNTER 2017-02-12 13:34 | Emergency (ER) | payer OTHER ==
[2017-01-23 13:58] VITALS: Ht 162.6 cm; Wt 108.9 kg
[~2017-02-12] VITALS: Ht 162.6 cm; Wt 108.9 kg
[~2017-02-12 13:34] MED LIST changes: +AMIL5TAB9; +CLON0.5T4 PO; +COLC0.6T67; +COLCHINE; +CYCL-10 PO; +CYCLOBENZAPINE; +CYM30; +DULO60CA41; +FENT1PAT4; +FERR236T; +HYDR-1189 PO; +HYDR-4100 PO; +IRON1CAP18; +LORA1TAB; +MAGN400T10 PO; +METR500T PO; +MUPI1OIN4; +NORCO5; +POTA20PA PO; +POTA20PA4; +POTA20TA83; +PRAV40TA PO; +PRAV40TA63; +PRO40 PO; +SPIR25TA PO; +VANC125C10 PO
[2017-02-12 13:39] VITALS: BP 134/76; PULSE 106; RESP 20; TEMP 98; O2SAT 96
--- NOTE | 2017-02-12 13:43 | NUR ---
Pt placed to ER bed 08.
--- NOTE | 2017-02-12 13:45 | NUR ---
PER PATIENT SHE STARTED HAVING PAIN AND GENERALIZED WEAKNESS YESTERDAY.COMPLAINING OF SEVERE PAIN TO LOWER BACK AND BILATERAL LOWER LEGS 8/10;NO SWELLING;NO REDNESS TO AFFECTED SITES.ABLE TO AMBULATE WITHOUT ASSIST.NO OTHER COMPLAIN/INJURIES PER PATIENT OR NOTED
--- NOTE | 2017-02-12 13:50 | NUR ---
ER at bedside examining patient.
[2017-02-12 14:00] LABS: BASOPHILS # (AUTO) 0.1 K/uL (0.0-0.2); BASOPHILS % (AUTO) 1.2 % (0.0-2.0); EOSINOPHILS # (AUTO) 0.2 K/uL (0.0-0.4); EOSINOPHILS % (AUTO) 3.2 % (0.0-4.0); HEMATOCRIT 38.5 % (36-48); HEMOGLOBIN 12.6 g/dL (12.0-16.0); LYMPHOCYTES # (AUTO) 2.6 K/uL (1.0-5.5); LYMPHOCYTES % (AUTO) 37.5 % (20.5-51.5); MEAN CORPUSCULAR HEMOGLOBIN 27 pg (27-31); MEAN CORPUSCULAR HGB CONC 33 % (32-36); MEAN CORPUSCULAR VOLUME 84 fL (79.0-98.0); MONOCYTES # (AUTO) 0.3 K/uL (0.0-1.0); MONOCYTES % (AUTO) 4.7 % (1.7-9.3); NEUTROPHILS # (AUTO) 3.8 K/uL (1.8-7.7); NEUTROPHILS % (AUTO) 53.4 % (40.0-70.0); PLATELET COUNT (AUTO) 338 K/uL (130-430); RED BLOOD CELL COUNT(AUTO) 4.61 MIL/uL (4.2-6.2); RED CELL DISTRIBUTION WIDTH 14.9 % (9.0-15.0)
[2017-02-12] MEDS ORDERED: MORPHINE 4 MG/ML INJ. SYRINGE IVP ONE ×2 (14:00→16:00)
[2017-02-12] MEDS ORDERED: MAGNESIUM SULFATE 50 ML IV ONE ×2 (14:00→15:45)
[2017-02-12] MEDS ORDERED: DIPHENHYDRAMINE INJ 50 MG/ML VIAL IVP ONE ×2 (14:00→16:00)
[2017-02-12] MEDS ORDERED: ONDANSETRON HCL 4 MG/2 ML VIAL IVP ONE ×2 (14:00→16:00)
[2017-02-12 14:01] LABS: BILIRUBIN,URINE NEGATIVE (NEGATIVE); BLOOD, URINE NEGATIVE (NEGATIVE); CLARITY/URINE CLEAR (CLEAR); COLOR,URINE YELLOW (YELLOW); GLUCOSE,URINE NEGATIVE (NEGATIVE); KETONES,URINE NEGATIVE (NEGATIVE); LEUKOCYTE ESTERASE ,URINE NEGATIVE (NEGATIVE); NITRITE, URINE NEGATIVE (NEGATIVE); PH,URINE 5.5 (5.0-8.0); PROTEIN URINE NEGATIVE (NEGATIVE); UROBILINOGEN,URINE 0.2 (0.2-1.0)
[2017-02-12 14:11] LABS: CREATININE 1.1 mg/dL (0.55-1.30); POTASSIUM 3.7 mmol/L (3.5-5.1)
[2017-02-12 14:15] LABS: PROTHROMBIN TIME 10.4 SECS (9.5-12.5)
[2017-02-12 14:16] LABS: ALBUMIN 4.1 g/dL (3.4-4.8); PHOSPHORUS 3.6 mg/dL (2.7-4.5); TOTAL BILIRUBIN 0.4 mg/dL (0.0-1.0); TOTAL PROTEIN, SERUM 7.4 g/dL (6.4-8.3)
[2017-02-12] MEDS ORDERED: LORazepam 1 MG TABLET PO ONE (17:30)
--- NOTE | 2017-02-12 17:53 | NUR ---
Patient given written and verbal discharge instructions and verbalizes understanding. ER MD discussed with patient the results and treatment provided. Patient in stable condition. ID arm band removed. IV catheter removed intact and dressing applied, no active bleeding. . Patient educated on pain management and to follow up with PMD. Pain Scale 0/10 . Opportunity for questions provided and answered.
[2017-02-12 17:54] VITALS: BP 130/72; PULSE 99; RESP 21; TEMP 98; O2SAT 97
== END 2017-02-12 17:53 | disposition home or self-care (01) ==
LOC: SED 13:34
DX: E83.42 Hypomagnesemia (principal); J44.9 Chronic obstructive pulmonary disease, unspecified; F41.9 Anxiety disorder, unspecified; Z90.710 Acquired absence of both cervix and uterus
CPT/HCPCS: 36415; 80053; 81003; 83735; 84100; 84484; 85025; 85610; 85730; 93005; 96365; 96366; 96375; 96376; 99285; J1200; J2270; J2405; J3475

== ENCOUNTER 2017-02-16 12:36 | Emergency (ER) | payer OTHER ==
[~2017-02-16] VITALS: Ht 162.6 cm; Wt 108.9 kg
[~2017-02-16 12:36] MED LIST changes: -AMIL5TAB9; -CLON0.5T4 PO; -COLC0.6T67; -COLCHINE; -CYCL-10 PO; -CYCLOBENZAPINE; -CYM30; -DULO60CA41; -FENT1PAT4; -FERR236T; -HYDR-1189 PO; -HYDR-4100 PO; -IRON1CAP18; -LORA1TAB; -MAGN400T10 PO; -METR500T PO; -MUPI1OIN4; -NORCO5; -POTA20PA PO; -POTA20PA4; -POTA20TA83; -PRAV40TA PO; -PRAV40TA63; -PRO40 PO; -SPIR25TA PO; -VANC125C10 PO
[2017-02-16 12:49] VITALS: BP_SYST 131
[2017-02-16] MEDS ORDERED: DIPHENHYDRAMINE INJ 50 MG/ML VIAL IVP ONE ×2 (13:00→17:00)
[2017-02-16] MEDS ORDERED: ONDANSETRON HCL 4 MG/2 ML VIAL IVP ONE ×2 (13:00→17:00)
[2017-02-16] MEDS ORDERED: MORPHINE 4 MG/ML INJ. SYRINGE IVP ONE ×2 (13:00→17:00)
[2017-02-16 13:38] LABS: BASOPHILS # (AUTO) 0.1 K/uL (0.0-0.2); BASOPHILS % (AUTO) 1.1 % (0.0-2.0); EOSINOPHILS # (AUTO) 0.1 K/uL (0.0-0.4); EOSINOPHILS % (AUTO) 1.9 % (0.0-4.0); HEMATOCRIT 42.1 % (36-48); HEMOGLOBIN 13.4 g/dL (12.0-16.0); LYMPHOCYTES % (AUTO) 31.4 % (20.5-51.5); MEAN CORPUSCULAR HEMOGLOBIN 27 pg (27-31); MEAN CORPUSCULAR HGB CONC 32 % (32-36); MEAN CORPUSCULAR VOLUME 84 fL (79.0-98.0); MONOCYTES # (AUTO) 0.3 K/uL (0.0-1.0); MONOCYTES % (AUTO) 5.1 % (1.7-9.3); NEUTROPHILS # (AUTO) 3.9 K/uL (1.8-7.7); NEUTROPHILS % (AUTO) 60.5 % (40.0-70.0); PLATELET COUNT (AUTO) 385 K/uL (130-430); RED BLOOD CELL COUNT(AUTO) 5.02 MIL/uL (4.2-6.2); RED CELL DISTRIBUTION WIDTH 14.9 % (9.0-15.0); WHITE BLOOD COUNT (AUTO) 6.4 K/uL (4.8-10.8)
[2017-02-16 13:39] LABS: CALCIUM 9.7 mg/dL (8.4-11.0); CREATININE 0.98 mg/dL (0.55-1.30); POTASSIUM 3.8 mmol/L (3.5-5.1)
[2017-02-16 13:42] LABS: PHOSPHORUS 3.2 mg/dL (2.7-4.5); PROTHROMBIN TIME 10.4 SECS (9.5-12.5)
[2017-02-16] MEDS ORDERED: MAGNESIUM SULFATE 4 GM in D5W 250 ML IV ONE (14:00)
[2017-02-16] MEDS ORDERED: NACL 0.9% 1,000 ML IV ONE (14:00)
[2017-02-16 15:04] LABS: BILIRUBIN,URINE NEGATIVE (NEGATIVE); BLOOD, URINE NEGATIVE (NEGATIVE); CLARITY/URINE CLEAR (CLEAR); COLOR,URINE YELLOW (YELLOW); GLUCOSE,URINE NEGATIVE (NEGATIVE); KETONES,URINE NEGATIVE (NEGATIVE); LEUKOCYTE ESTERASE ,URINE NEGATIVE (NEGATIVE); NITRITE, URINE NEGATIVE (NEGATIVE); PH,URINE 7.5 (5.0-8.0); PROTEIN URINE NEGATIVE (NEGATIVE); UROBILINOGEN,URINE 0.2 (0.2-1.0)
[2017-02-16 17:44] VITALS: BP_SYST 131
== END 2017-02-16 17:44 | disposition home or self-care (01) ==
LOC: SED 12:36
DX: E83.42 Hypomagnesemia (principal); J44.9 Chronic obstructive pulmonary disease, unspecified; I10 Essential (primary) hypertension; M10.9 Gout, unspecified; F41.9 Anxiety disorder, unspecified; Z88.0 Allergy status to penicillin; Z91.02 Food additives allergy status
CPT/HCPCS: 36415; 80048; 81003; 83735; 84100; 85025; 85610; 85730; 96365; 96366; 96375; 96376; 99285; J1200; J2270; J2405; J3475; J7030; J7060

== ENCOUNTER 2017-02-24 15:38 | Emergency (ER) | payer OTHER ==
[~2017-02-24] VITALS: Ht 162.6 cm; Wt 108.9 kg
[2017-02-24 15:47] VITALS: BP_SYST 114
[2017-02-24 17:14] LABS: CALCIUM 9.8 mg/dL (8.4-11.0); CREATININE 1.12 mg/dL (0.55-1.30); POTASSIUM 3.5 mmol/L (3.5-5.1)
[2017-02-24] MEDS ORDERED: PROCHLORPERAZINE EDISYLATE 10 MG/2 ML VIAL IVP ONE (17:30)
[2017-02-24] MEDS ORDERED: DIPHENHYDRAMINE INJ 50 MG/ML VIAL IVP ONE ×2 (17:30→21:15)
[2017-02-24] MEDS ORDERED: MAGNESIUM SULFATE 3 GM in D5W 100 ML IV ONE ×2 (17:30→18:15)
[2017-02-24] MEDS ORDERED: MORPHINE 2 MG/ML INJ. SYRINGE IVP ONE ×2 (17:30→21:15)
[2017-02-24] MEDS ORDERED: MAGNESIUM SULFATE 1 GM/2 ML VIAL ONE (17:43)
[2017-02-24 21:30] VITALS: BP_SYST 122
== END 2017-02-24 21:30 | disposition home or self-care (01) ==
LOC: SED 15:38
DX: E83.42 Hypomagnesemia (principal); J44.9 Chronic obstructive pulmonary disease, unspecified; I10 Essential (primary) hypertension; M10.9 Gout, unspecified; F41.9 Anxiety disorder, unspecified; Z88.0 Allergy status to penicillin; Z91.018 Allergy to other foods
CPT/HCPCS: 36415; 80048; 83735; 96365; 96375; 96376; 99284; J0780; J1200; J2270; J3475; J7060

== ENCOUNTER 2017-03-04 10:36 | Inpatient (IN) | payer OTHER ==
[~2017-03-04] VITALS: Ht 162.6 cm; Wt 108.9 kg
[2017-03-04 10:40] VITALS: BP_SYST 121
[2017-03-04] MEDS ORDERED: NACL 0.9% 1,000 ML IV ONE (10:48)
[2017-03-04] MEDS ORDERED: MORPHINE 2 MG/ML INJ. SYRINGE IVP ONE (11:00)
[2017-03-04] MEDS ORDERED: DIPHENHYDRAMINE INJ 50 MG/ML VIAL IVP ONE ×2 (11:00→16:00)
[2017-03-04] MEDS ORDERED: MAGNESIUM SULFATE 1 GM in NS 100 ML IV ONE ×2 (11:00→12:00)
[2017-03-04 11:21] LABS: BASOPHILS # (AUTO) 0.1 K/uL (0.0-0.2); EOSINOPHILS # (AUTO) 0.2 K/uL (0.0-0.4); EOSINOPHILS % (AUTO) 2.5 % (0.0-4.0); HEMATOCRIT 39.5 % (36-48); LYMPHOCYTES # (AUTO) 3.1 K/uL (1.0-5.5); LYMPHOCYTES % (AUTO) 33.2 % (20.5-51.5); MEAN CORPUSCULAR HEMOGLOBIN 27 pg (27-31); MEAN CORPUSCULAR HGB CONC 33 % (32-36); MEAN CORPUSCULAR VOLUME 83 fL (79.0-98.0); MONOCYTES # (AUTO) 0.5 K/uL (0.0-1.0); MONOCYTES % (AUTO) 5.6 % (1.7-9.3); NEUTROPHILS # (AUTO) 5.3 K/uL (1.8-7.7); NEUTROPHILS % (AUTO) 57.7 % (40.0-70.0); PLATELET COUNT (AUTO) 329 K/uL (130-430); RED BLOOD CELL COUNT(AUTO) 4.75 MIL/uL (4.2-6.2); RED CELL DISTRIBUTION WIDTH 15.4 % (9.0-15.0); WHITE BLOOD COUNT (AUTO) 9.2 K/uL (4.8-10.8)
[2017-03-04 11:23] LABS: CREATININE 1.2 mg/dL (0.55-1.30); POTASSIUM 3.1 mmol/L (3.5-5.1)
[2017-03-04 11:28] LABS: ALBUMIN 3.9 g/dL (3.4-4.8); BILIRUBIN,URINE NEGATIVE (NEGATIVE); CLARITY/URINE CLEAR (CLEAR); COLOR,URINE YELLOW (YELLOW); GLUCOSE,URINE NEGATIVE (NEGATIVE); KETONES,URINE NEGATIVE (NEGATIVE); PHOSPHORUS 4.5 mg/dL (2.7-4.5); PROTEIN URINE NEGATIVE (NEGATIVE); TOTAL BILIRUBIN 0.6 mg/dL (0.0-1.0); TOTAL PROTEIN, SERUM 7.6 g/dL (6.4-8.3)
[2017-03-04 11:29] LABS: BLOOD, URINE NEGATIVE (NEGATIVE); LEUKOCYTE ESTERASE ,URINE NEGATIVE (NEGATIVE); NITRITE, URINE NEGATIVE (NEGATIVE); UROBILINOGEN,URINE 0.2 (0.2-1.0)
[2017-03-04] MEDS ORDERED: POTASSIUM CHLORIDE 20 MEQ TAB.PRT.SR PO ONE (11:45)
[2017-03-04] MEDS ORDERED: MAGNESIUM SUL 2 GM/50 ML PREMIX IV ONE (11:45)
[2017-03-04] MEDS ORDERED: POTASSIUM CHLORIDE 40 MEQ in D5NS 1,000 ML IV SCH (13:45)
[2017-03-04 14:40] VITALS: BP_SYST 115
[2017-03-04] MEDS ORDERED: MORPHINE 4 MG/ML INJ. SYRINGE IVP ONE (16:00)
[2017-03-04] MEDS: POTASSIUM CHLORIDE 40 MEQ in D5NS 1,000 ML IV SCH (16:45)
[2017-03-04] MEDS ORDERED: COLCHICINE 0.6 MG TABLET PO PRN (20:00)
[2017-03-04] MEDS ORDERED: MORPHINE SULFATE 15 MG TABLET.SA PO SCH (20:00)
[2017-03-04] MEDS ORDERED: MILK OF MAGNESIA 30 ML UDC PO PRN (20:00)
[2017-03-04] MEDS ORDERED: fentaNYL 50 MCG/HR PATCH TD SCH ×2 (20:00)
[2017-03-04] MEDS ORDERED: MAGNESIUM SULFATE 50 ML IV ONE (20:30)
[2017-03-04] MEDS: DIPHENHYDRAMINE INJ 50 MG/ML VIAL IVP PRN (21:01)
[2017-03-04] MEDS: MORPHINE 4 MG/ML INJ. SYRINGE IVP PRN (21:01)
[2017-03-04 21:10] VITALS: BP_SYST 108
[2017-03-04] MEDS: POTASSIUM CHLORIDE 10 MEQ TAB.PRT.SR PO SCH (22:09)
[2017-03-04] MEDS: TEMAZEPAM 15 MG CAPSULE PO SCH (22:09)
[2017-03-04] MEDS: MULTIVITAMINS TAB 1 TABLET PO SCH (22:10)
[2017-03-04] MEDS: CHOLECALCIFEROL (VITAMIN D-3) 400 UNIT TABLET PO SCH (22:10)
[2017-03-04] MEDS: LORazepam 1 MG TABLET PO SCH (22:10)
[2017-03-04] MEDS: aMILoride HCL 5 MG TABLET PO SCH (22:10)
[2017-03-04] MEDS: MORPHINE SULFATE 30 MG Immediate Release TABLET PO SCH (22:12)
[2017-03-05] VITALS (7 sets, daily range): BP systolic 100–114
[2017-03-05] MEDS: MORPHINE 4 MG/ML INJ. SYRINGE IVP PRN ×8 (00:47→22:34)
[2017-03-05] MEDS: DIPHENHYDRAMINE INJ 50 MG/ML VIAL IVP PRN ×4 (03:43→22:32)
[2017-03-05] MEDS: POTASSIUM CHLORIDE 40 MEQ in D5NS 1,000 ML IV SCH ×2 (06:54→22:04)
[2017-03-05 07:21] LABS: BASOPHILS # (AUTO) 0.1 K/uL (0.0-0.2); BASOPHILS % (AUTO) 0.9 % (0.0-2.0); EOSINOPHILS # (AUTO) 0.3 K/uL (0.0-0.4); EOSINOPHILS % (AUTO) 2.9 % (0.0-4.0); HEMATOCRIT 35.9 % (36-48); HEMOGLOBIN 11.8 g/dL (12.0-16.0); LYMPHOCYTES # (AUTO) 3.4 K/uL (1.0-5.5); LYMPHOCYTES % (AUTO) 33.7 % (20.5-51.5); MEAN CORPUSCULAR HEMOGLOBIN 28 pg (27-31); MEAN CORPUSCULAR HGB CONC 33 % (32-36); MEAN CORPUSCULAR VOLUME 85 fL (79.0-98.0); MONOCYTES # (AUTO) 0.8 K/uL (0.0-1.0); MONOCYTES % (AUTO) 7.8 % (1.7-9.3); NEUTROPHILS # (AUTO) 5.4 K/uL (1.8-7.7); NEUTROPHILS % (AUTO) 54.7 % (40.0-70.0); PLATELET COUNT (AUTO) 281 K/uL (130-430); RED CELL DISTRIBUTION WIDTH 15.1 % (9.0-15.0)
[2017-03-05 07:29] LABS: CALCIUM 8.4 mg/dL (8.4-11.0); CREATININE 0.96 mg/dL (0.55-1.30); POTASSIUM 3.5 mmol/L (3.5-5.1)
[2017-03-05] MEDS: CHOLECALCIFEROL (VITAMIN D-3) 400 UNIT TABLET PO SCH ×2 (09:12→22:43)
[2017-03-05] MEDS: POTASSIUM CHLORIDE 10 MEQ TAB.PRT.SR PO SCH ×4 (09:12→22:43)
[2017-03-05] MEDS: MULTIVITAMINS TAB 1 TABLET PO SCH ×3 (09:12→22:42)
[2017-03-05] MEDS: LORazepam 1 MG TABLET PO SCH ×2 (09:13→22:42)
[2017-03-05] MEDS: SPIRONOLACTONE 50 MG TABLET (ALDACTONE) PO SCH (09:13)
[2017-03-05] MEDS: DULoxetine HCL 30 MG CAPSULE.DR (CYMBALTA) PO SCH (09:13)
[2017-03-05] MEDS: CYCLOBENZAPRINE HCL 10 MG TABLET (FLEXERIL) PO SCH (09:13)
[2017-03-05] MEDS: aMILoride HCL 5 MG TABLET PO SCH ×2 (09:14→22:42)
[2017-03-05] MEDS: MORPHINE SULFATE 30 MG Immediate Release TABLET PO SCH ×2 (09:14→15:01)
[2017-03-05] MEDS ORDERED: MAGNESIUM SULFATE 50 ML IV ONE (14:15)
[2017-03-05] MEDS: TEMAZEPAM 15 MG CAPSULE PO SCH (22:43)
[2017-03-06] VITALS (7 sets, daily range): BP systolic 93–122
[2017-03-06] MEDS: MORPHINE 4 MG/ML INJ. SYRINGE IVP PRN ×8 (01:28→22:53)
[2017-03-06] MEDS: DIPHENHYDRAMINE INJ 50 MG/ML VIAL IVP PRN ×4 (04:34→22:48)
[2017-03-06 06:14] LABS: CALCIUM 8.5 mg/dL (8.4-11.0); CHLORIDE 107 mmol/L (98-107); CREATININE 0.85 mg/dL (0.55-1.30); GLUCOSE 105 mg/dL (70-99); POTASSIUM 4.1 mmol/L (3.5-5.1); SODIUM SERUM 140 mmol/L (136-145); UREA NITROGEN, BLOOD 10 mg/dL (8-21)
[2017-03-06 06:18] LABS: BASOPHILS # (AUTO) 0.1 K/uL (0.0-0.2); BASOPHILS % (AUTO) 1.1 % (0.0-2.0); EOSINOPHILS # (AUTO) 0.4 K/uL (0.0-0.4); HEMATOCRIT 34.5 % (36-48); HEMOGLOBIN 11.2 g/dL (12.0-16.0); LYMPHOCYTES # (AUTO) 3.4 K/uL (1.0-5.5); LYMPHOCYTES % (AUTO) 36.7 % (20.5-51.5); MEAN CORPUSCULAR HEMOGLOBIN 28 pg (27-31); MEAN CORPUSCULAR HGB CONC 33 % (32-36); MEAN CORPUSCULAR VOLUME 85 fL (79.0-98.0); MONOCYTES # (AUTO) 0.6 K/uL (0.0-1.0); MONOCYTES % (AUTO) 6.4 % (1.7-9.3); NEUTROPHILS # (AUTO) 4.9 K/uL (1.8-7.7); NEUTROPHILS % (AUTO) 51.8 % (40.0-70.0); PLATELET COUNT (AUTO) 272 K/uL (130-430); RED BLOOD CELL COUNT(AUTO) 4.06 MIL/uL (4.2-6.2); RED CELL DISTRIBUTION WIDTH 15.1 % (9.0-15.0); WHITE BLOOD COUNT (AUTO) 9.4 K/uL (4.8-10.8)
[2017-03-06 06:51] LABS: GFR AFRICAN AMERICAN 91 mL/min (>90)
[2017-03-06 06:52] LABS: ANION GAP < 3 (5-15)
[2017-03-06] MEDS: SPIRONOLACTONE 50 MG TABLET (ALDACTONE) PO SCH (10:34)
[2017-03-06] MEDS: aMILoride HCL 5 MG TABLET PO SCH ×3 (10:35→21:51)
[2017-03-06] MEDS: DULoxetine HCL 30 MG CAPSULE.DR (CYMBALTA) PO SCH (10:35)
[2017-03-06] MEDS: CHOLECALCIFEROL (VITAMIN D-3) 400 UNIT TABLET PO SCH ×2 (10:35→21:50)
[2017-03-06] MEDS: CYCLOBENZAPRINE HCL 10 MG TABLET (FLEXERIL) PO SCH (10:36)
[2017-03-06] MEDS: LORazepam 1 MG TABLET PO SCH ×3 (10:36→21:50)
[2017-03-06] MEDS: POTASSIUM CHLORIDE 10 MEQ TAB.PRT.SR PO SCH ×4 (10:37→21:50)
[2017-03-06] MEDS: MULTIVITAMINS TAB 1 TABLET PO SCH ×3 (10:37→21:50)
[2017-03-06] MEDS: POTASSIUM CHLORIDE 40 MEQ in D5NS 1,000 ML IV SCH (11:27)
[2017-03-06] MEDS ORDERED: MAGNESIUM SULFATE 4 GM in D5W 250 ML IV ONE (14:45)
[2017-03-06] MEDS: TEMAZEPAM 15 MG CAPSULE PO SCH (21:00)
== END 2017-03-06 23:45 | disposition home or self-care (01) | DRG 641 ==
LOC: SED 10:36 → STU 13:45
PROVIDERS: ADMIT Family Medicine; ATTEND Family Medicine
DX: E87.6 Hypokalemia (principal); E83.42 Hypomagnesemia; G89.29 Other chronic pain; J44.9 Chronic obstructive pulmonary disease, unspecified; I10 Essential (primary) hypertension; N28.9 Disorder of kidney and ureter, unspecified; M11.20 Other chondrocalcinosis, unspecified site; F41.9 Anxiety disorder, unspecified; Z88.0 Allergy status to penicillin; Z91.018 Allergy to other foods; Z79.899 Other long term (current) drug therapy; M79.7 Fibromyalgia
CPT/HCPCS: 36415; 80048; 80053; 81003; 83735-TC; 84100-TC; 85025; 96361; 96365; 96366; 96368; 96375; 99285; J1200; J2270; J2274; J3475; J3480; J7030; J7040; J7042; J7060

== ENCOUNTER 2017-03-12 17:21 | Emergency (ER) | payer OTHER ==
[~2017-03-12] VITALS: Ht 162.6 cm; Wt 108.9 kg
[2017-03-12 17:25] VITALS: BP_SYST 123
[2017-03-12 18:08] LABS: EOSINOPHILS % (AUTO) 0.3 % (0.0-4.0); HEMOGLOBIN 14.3 g/dL (12.0-16.0); MEAN CORPUSCULAR VOLUME 84 fL (79.0-98.0)
[2017-03-12 18:11] LABS: BASOPHILS # (AUTO) 0.2 K/uL (0.0-0.2); HEMATOCRIT 45.2 % (36-48); LYMPHOCYTES # (AUTO) 2.6 K/uL (1.0-5.5); LYMPHOCYTES % (AUTO) 17.1 % (20.5-51.5); MEAN CORPUSCULAR HEMOGLOBIN 27 pg (27-31); MEAN CORPUSCULAR HGB CONC 32 % (32-36); MONOCYTES # (AUTO) 0.5 K/uL (0.0-1.0); NEUTROPHILS # (AUTO) 11.8 K/uL (1.8-7.7); NEUTROPHILS % (AUTO) 78.6 % (40.0-70.0); PLATELET COUNT (AUTO) 417 K/uL (130-430); RED BLOOD CELL COUNT(AUTO) 5.38 MIL/uL (4.2-6.2); RED CELL DISTRIBUTION WIDTH 14.8 % (9.0-15.0); WHITE BLOOD COUNT (AUTO) 15.1 K/uL (4.8-10.8)
[2017-03-12 18:20] LABS: PROTHROMBIN TIME 10.7 SECS (9.5-12.5)
[2017-03-12 18:29] LABS: ANION GAP 11 (5-15); CALCIUM 9.8 mg/dL (8.4-11.0); CHLORIDE 102 mmol/L (98-107); GLUCOSE 120 mg/dL (70-99); POTASSIUM 3.9 mmol/L (3.5-5.1); SODIUM SERUM 141 mmol/L (136-145); UREA NITROGEN, BLOOD 17 mg/dL (8-21)
[2017-03-12 18:30] LABS: GFR AFRICAN AMERICAN 76 mL/min (>90)
[2017-03-12 18:33] LABS: ALANINE AMINOTRANSFERASE 59 U/L (12-78); ALBUMIN 4.5 g/dL (3.4-4.8); ASPARTATE AMINOTRANSFERASE 36 U/L (10-37); PHOSPHORUS 3.6 mg/dL (2.7-4.5); SALICYLATE 1 mg/dL (3-30); TOTAL BILIRUBIN 0.8 mg/dL (0.0-1.0); TOTAL PROTEIN, SERUM 8.9 g/dL (6.4-8.3)
[2017-03-12 18:39] LABS: ACETAMINOPHEN < 1 ug/mL (1-30); ALCOHOL, BLOOD < 3 mg/dL (<10)
[2017-03-12] MEDS ORDERED: MAGNESIUM OXIDE 400 MG TABLET PO ONE (20:00)
[2017-03-12] MEDS ORDERED: MORPHINE 2 MG/ML INJ. SYRINGE IM ONE (20:00)
[2017-03-12] MEDS ORDERED: DIPHENHYDRAMINE INJ 50 MG/ML VIAL IM ONE (20:00)
[2017-03-12 20:15] LABS: BILIRUBIN,URINE NEGATIVE (NEGATIVE); BLOOD, URINE NEGATIVE (NEGATIVE); CLARITY/URINE CLEAR (CLEAR); COLOR,URINE YELLOW (YELLOW); GLUCOSE,URINE NEGATIVE (NEGATIVE); KETONES,URINE NEGATIVE (NEGATIVE); LEUKOCYTE ESTERASE ,URINE NEGATIVE (NEGATIVE); NITRITE, URINE NEGATIVE (NEGATIVE); PH,URINE 7.5 (5.0-8.0); PROTEIN URINE NEGATIVE (NEGATIVE); UROBILINOGEN,URINE 0.2 (0.2-1.0)
[2017-03-12 20:27] LABS: BENZODIAZEPINE, URINE POSITIVE (NEG <=150); CANNABINOID, URINE POSITIVE (NEG <=50); OPIATE, URINE POSITIVE (NEG <=100)
[2017-03-12 20:28] LABS: BARBITURATE, URINE NEGATIVE (NEG <=200); COCAINE, URINE NEGATIVE (NEG <=150); METHAMPHETAMINES SCREEN,URINE NEGATIVE (NEG <=500); PHENCYCLIDINE SCREEN,URINE NEGATIVE (NEG <=25); UR TRICYCLIC ANTIDEPRESSANTS NEGATIVE (NEG <=300); URINE AMPHETAMINE NEGATIVE (NEG <=500); URINE METHADONE NEGATIVE (NEG <=200); URINE OXYCODONE SCREEN NEGATIVE (NEG <=100); URINE PROPOXYPHENE SCREEN NEGATIVE (NEG <=300)
[2017-03-12] MEDS ORDERED: LORazepam 1 MG TABLET PO ONE (20:45)
[2017-03-12 21:33] VITALS: BP_SYST 102
== END 2017-03-12 21:33 | disposition home or self-care (01) ==
LOC: SED 17:21
DX: R55 Syncope and collapse (principal); I10 Essential (primary) hypertension; E83.42 Hypomagnesemia; J44.9 Chronic obstructive pulmonary disease, unspecified; Z88.0 Allergy status to penicillin; Z91.018 Allergy to other foods
CPT/HCPCS: 36415; 70450; 71010; 80053; 80307; 81003; 83735; 84100; 84484; 85025; 85610; 85730; 93005; 96372; 99285; G0480; G0481; G0482; J1200; J2270

== ENCOUNTER 2017-03-21 13:41 | Emergency (ER) | payer OTHER ==
[~2017-03-21] VITALS: Ht 162.6 cm; Wt 108.9 kg
[2017-03-21 13:49] VITALS: BP_SYST 117
[2017-03-21 14:15] LABS: BLOOD, URINE NEGATIVE (NEGATIVE); COLOR,URINE YELLOW (YELLOW); GLUCOSE,URINE NEGATIVE (NEGATIVE); KETONES,URINE NEGATIVE (NEGATIVE); LEUKOCYTE ESTERASE ,URINE NEGATIVE (NEGATIVE); NITRITE, URINE NEGATIVE (NEGATIVE); PROTEIN URINE NEGATIVE (NEGATIVE); UROBILINOGEN,URINE 0.2 (0.2-1.0)
[2017-03-21 14:24] LABS: CALCIUM 9.4 mg/dL (8.4-11.0); CREATININE 1.07 mg/dL (0.55-1.30); POTASSIUM 3.9 mmol/L (3.5-5.1)
[2017-03-21 14:25] LABS: BILIRUBIN,URINE NEGATIVE (NEGATIVE); CLARITY/URINE CLEAR (CLEAR)
[2017-03-21 14:26] LABS: BASOPHILS # (AUTO) 0.1 K/uL (0.0-0.2); EOSINOPHILS # (AUTO) 0.2 K/uL (0.0-0.4); EOSINOPHILS % (AUTO) 1.8 % (0.0-4.0); HEMATOCRIT 43.1 % (36-48); HEMOGLOBIN 13.6 g/dL (12.0-16.0); LYMPHOCYTES # (AUTO) 2.6 K/uL (1.0-5.5); LYMPHOCYTES % (AUTO) 24.9 % (20.5-51.5); MEAN CORPUSCULAR HEMOGLOBIN 27 pg (27-31); MEAN CORPUSCULAR HGB CONC 32 % (32-36); MEAN CORPUSCULAR VOLUME 85 fL (79.0-98.0); MONOCYTES # (AUTO) 0.3 K/uL (0.0-1.0); MONOCYTES % (AUTO) 3.2 % (1.7-9.3); NEUTROPHILS # (AUTO) 7.3 K/uL (1.8-7.7); NEUTROPHILS % (AUTO) 69.1 % (40.0-70.0); PLATELET COUNT (AUTO) 432 K/uL (130-430); RED BLOOD CELL COUNT(AUTO) 5.08 MIL/uL (4.2-6.2); RED CELL DISTRIBUTION WIDTH 14.8 % (9.0-15.0); WHITE BLOOD COUNT (AUTO) 10.5 K/uL (4.8-10.8)
[2017-03-21 14:29] LABS: ALBUMIN 4.1 g/dL (3.4-4.8); TOTAL BILIRUBIN 0.7 mg/dL (0.0-1.0); TOTAL PROTEIN, SERUM 8.2 g/dL (6.4-8.3)
[2017-03-21] MEDS ORDERED: MAGNESIUM SULFATE 50 ML IV ONE (19:00)
[2017-03-21] MEDS ORDERED: MORPHINE 4 MG/ML INJ. SYRINGE IVP ONE (19:00)
[2017-03-21] MEDS ORDERED: NS 500 ML IV ONE (19:00)
[2017-03-21] MEDS ORDERED: LORazepam 2 MG/ML VIAL (FOR ER USE) IVP ONE (21:15)
[2017-03-21 21:59] VITALS: BP_SYST 115
== END 2017-03-21 21:59 | disposition home or self-care (01) ==
LOC: SED 13:41
DX: G89.29 Other chronic pain (principal); J44.9 Chronic obstructive pulmonary disease, unspecified; I10 Essential (primary) hypertension; M10.9 Gout, unspecified; F41.9 Anxiety disorder, unspecified; E83.42 Hypomagnesemia; Z88.0 Allergy status to penicillin; Z91.018 Allergy to other foods; Z79.899 Other long term (current) drug therapy
CPT/HCPCS: 36415; 80053; 81003; 83735; 85025; 96365; 96366; 96375; 99285; J2060; J2270; J3475

== ENCOUNTER 2017-04-02 12:47 | Emergency (ER) | payer OTHER ==
[~2017-04-02] VITALS: Ht 162.6 cm; Wt 108.9 kg
[2017-04-02 13:19] VITALS: BP_SYST 139
[2017-04-02 14:49] LABS: BASOPHILS # (AUTO) 0.1 K/uL (0.0-0.2); BASOPHILS % (AUTO) 0.6 % (0.0-2.0); EOSINOPHILS # (AUTO) 0.1 K/uL (0.0-0.4); EOSINOPHILS % (AUTO) 1.2 % (0.0-4.0); HEMATOCRIT 44.4 % (36-48); LYMPHOCYTES # (AUTO) 2.8 K/uL (1.0-5.5); LYMPHOCYTES % (AUTO) 29.7 % (20.5-51.5); MEAN CORPUSCULAR HEMOGLOBIN 27 pg (27-31); MEAN CORPUSCULAR HGB CONC 32 % (32-36); MEAN CORPUSCULAR VOLUME 84 fL (79.0-98.0); MONOCYTES # (AUTO) 0.4 K/uL (0.0-1.0); MONOCYTES % (AUTO) 4.7 % (1.7-9.3); NEUTROPHILS % (AUTO) 63.8 % (40.0-70.0); PLATELET COUNT (AUTO) 400 K/uL (130-430); RED BLOOD CELL COUNT(AUTO) 5.26 MIL/uL (4.2-6.2); RED CELL DISTRIBUTION WIDTH 14.8 % (9.0-15.0); WHITE BLOOD COUNT (AUTO) 9.4 K/uL (4.8-10.8)
[2017-04-02 14:56] LABS: CALCIUM 9.8 mg/dL (8.4-11.0); CREATININE 0.96 mg/dL (0.55-1.30); POTASSIUM 4.5 mmol/L (3.5-5.1)
[2017-04-02 15:01] LABS: ALBUMIN 4.2 g/dL (3.4-4.8); TOTAL BILIRUBIN 0.8 mg/dL (0.0-1.0); TOTAL PROTEIN, SERUM 8.4 g/dL (6.4-8.3)
[2017-04-02] MEDS ORDERED: DIPHENHYDRAMINE INJ 50 MG/ML VIAL IVP ONE (15:15)
[2017-04-02] MEDS ORDERED: HYDROmorphone 1 MG INJ. 1 MG/ML AMPUL IVP ONE (15:15)
[2017-04-02] MEDS ORDERED: MAGNESIUM SULFATE 1 GM/2 ML VIAL IVP ONE (15:45)
[2017-04-02] MEDS ORDERED: MAGNESIUM SUL 2 GM/50 ML PREMIX IV ONE (16:15)
[2017-04-02] MEDS ORDERED: HYDROmorphone 2 MG/ML VIAL IVP ONE (17:15)
[2017-04-02 17:51] VITALS: BP_SYST 127
== END 2017-04-02 17:51 | disposition home or self-care (01) ==
LOC: SED 12:47
DX: E83.42 Hypomagnesemia (principal); J44.9 Chronic obstructive pulmonary disease, unspecified; I10 Essential (primary) hypertension; F41.9 Anxiety disorder, unspecified; M10.9 Gout, unspecified; Z79.899 Other long term (current) drug therapy; Z88.0 Allergy status to penicillin; Z91.018 Allergy to other foods
CPT/HCPCS: 36415; 80053; 82550; 83735; 85025; 93970; 96365; 96375; 96376; 99285; J1170 ×2; J1200; J3475

== ENCOUNTER 2017-04-12 19:10 | Emergency (ER) | payer OTHER ==
[~2017-04-12] VITALS: Ht 162.6 cm; Wt 108.9 kg
[2017-04-12 19:23] VITALS: BP_SYST 123
[2017-04-12] MEDS ORDERED: MAGNESIUM SULFATE 50 ML IV ONE (20:15)
[2017-04-12] MEDS ORDERED: ONDANSETRON HCL 4 MG/2 ML VIAL IVP ONE (20:15)
[2017-04-12] MEDS ORDERED: NACL 0.9% 1,000 ML IV ONE (20:15)
[2017-04-12] MEDS ORDERED: KETOROLAC TROMETHAMINE 30 MG VIAL IVP ONE (20:15)
[2017-04-12 20:36] LABS: BASOPHILS # (AUTO) 0.2 K/uL (0.0-0.2); BASOPHILS % (AUTO) 1.5 % (0.0-2.0); EOSINOPHILS # (AUTO) 0.1 K/uL (0.0-0.4); HEMATOCRIT 42.5 % (36-48); HEMOGLOBIN 13.6 g/dL (12.0-16.0); LYMPHOCYTES # (AUTO) 3.3 K/uL (1.0-5.5); LYMPHOCYTES % (AUTO) 31.3 % (20.5-51.5); MEAN CORPUSCULAR HEMOGLOBIN 27 pg (27-31); MEAN CORPUSCULAR HGB CONC 32 % (32-36); MEAN CORPUSCULAR VOLUME 84 fL (79.0-98.0); MONOCYTES # (AUTO) 0.5 K/uL (0.0-1.0); MONOCYTES % (AUTO) 4.7 % (1.7-9.3); NEUTROPHILS # (AUTO) 6.6 K/uL (1.8-7.7); NEUTROPHILS % (AUTO) 61.5 % (40.0-70.0); PLATELET COUNT (AUTO) 378 K/uL (130-430); RED BLOOD CELL COUNT(AUTO) 5.05 MIL/uL (4.2-6.2); RED CELL DISTRIBUTION WIDTH 14.3 % (9.0-15.0); WHITE BLOOD COUNT (AUTO) 10.7 K/uL (4.8-10.8)
[2017-04-12 20:45] LABS: CALCIUM 9.4 mg/dL (8.4-11.0); CREATININE 0.95 mg/dL (0.55-1.30); POTASSIUM 3.7 mmol/L (3.5-5.1)
[2017-04-12 20:50] LABS: ALBUMIN 4.1 g/dL (3.4-4.8); TOTAL BILIRUBIN 0.8 mg/dL (0.0-1.0); TOTAL PROTEIN, SERUM 8.2 g/dL (6.4-8.3)
[2017-04-12] MEDS ORDERED: DIPHENHYDRAMINE INJ 50 MG/ML VIAL IVP ONE (21:00)
[2017-04-12 22:02] LABS: BILIRUBIN,URINE NEGATIVE (NEGATIVE); BLOOD, URINE NEGATIVE (NEGATIVE); CLARITY/URINE CLEAR (CLEAR); COLOR,URINE YELLOW (YELLOW); GLUCOSE,URINE NEGATIVE (NEGATIVE); KETONES,URINE NEGATIVE (NEGATIVE); LEUKOCYTE ESTERASE ,URINE NEGATIVE (NEGATIVE); NITRITE, URINE NEGATIVE (NEGATIVE); PH,URINE 7.5 (5.0-8.0); PROTEIN URINE NEGATIVE (NEGATIVE); UROBILINOGEN,URINE 0.2 (0.2-1.0)
[2017-04-12] MEDS ORDERED: MORPHINE 4 MG/ML INJ. SYRINGE IVP ONE (22:15)
[2017-04-12 23:20] VITALS: BP_SYST 116
== END 2017-04-12 23:20 | disposition home or self-care (01) ==
LOC: SED 19:10
DX: N39.0 Urinary tract infection, site not specified (principal); E83.42 Hypomagnesemia; J44.9 Chronic obstructive pulmonary disease, unspecified; I10 Essential (primary) hypertension; F41.9 Anxiety disorder, unspecified; Z88.0 Allergy status to penicillin; Z88.8 Allergy status to other drugs, medicaments and biological substances; Z91.018 Allergy to other foods; Z79.899 Other long term (current) drug therapy
CPT/HCPCS: 36415; 80053; 81003; 81025; 83735; 85025; 96365; 96366; 96375; 99285; J1200; J1885; J2270; J2405; J3475; J7030

== ENCOUNTER 2017-04-21 14:10 | Inpatient (IN) | payer OTHER ==
[~2017-04-21] VITALS: Ht 162.6 cm; Wt 112.5 kg
[2017-04-21 14:16] VITALS: BP_SYST 114
[2017-04-21 14:48] LABS: BASOPHILS # (AUTO) 0.2 K/uL (0.0-0.2); BASOPHILS % (AUTO) 1.3 % (0.0-2.0); EOSINOPHILS % (AUTO) 0.3 % (0.0-4.0); HEMATOCRIT 44.6 % (36-48); HEMOGLOBIN 14.1 g/dL (12.0-16.0); LYMPHOCYTES # (AUTO) 1.6 K/uL (1.0-5.5); LYMPHOCYTES % (AUTO) 13.6 % (20.5-51.5); MEAN CORPUSCULAR HEMOGLOBIN 27 pg (27-31); MEAN CORPUSCULAR HGB CONC 32 % (32-36); MEAN CORPUSCULAR VOLUME 84 fL (79.0-98.0); MONOCYTES # (AUTO) 0.4 K/uL (0.0-1.0); NEUTROPHILS # (AUTO) 9.9 K/uL (1.8-7.7); PLATELET COUNT (AUTO) 426 K/uL (130-430); RED BLOOD CELL COUNT(AUTO) 5.31 MIL/uL (4.2-6.2); RED CELL DISTRIBUTION WIDTH 14.2 % (9.0-15.0); WHITE BLOOD COUNT (AUTO) 12.1 K/uL (4.8-10.8)
[2017-04-21 15:06] LABS: CALCIUM 9.9 mg/dL (8.4-11.0); CREATININE 1.17 mg/dL (0.55-1.30); POTASSIUM 3.7 mmol/L (3.5-5.1)
[2017-04-21] MEDS ORDERED: DIPHENHYDRAMINE INJ 50 MG/ML VIAL IVP ONE (15:15)
[2017-04-21] MEDS ORDERED: MORPHINE 4 MG/ML INJ. SYRINGE IVP ONE (15:15)
[2017-04-21 15:16] LABS: ALBUMIN 4.1 g/dL (3.4-4.8); TOTAL BILIRUBIN 0.9 mg/dL (0.0-1.0)
[2017-04-21] MEDS ORDERED: MAGNESIUM SULFATE 4 GM in D5W 250 ML IV ONE (15:30)
[2017-04-21] MEDS ORDERED: MAGNESIUM SULFATE 1 GM/2 ML VIAL ONE (15:56)
[2017-04-21 16:15] LABS: NEUTROPHILS % (AUTO) 81.8 % (40.0-70.0)
[2017-04-21 16:56] VITALS: BP_SYST 118
[2017-04-21] MEDS ORDERED: MAGNESIUM SULFATE IV ONE (18:15)
[2017-04-21] MEDS ORDERED: D5W IV ONE (18:15)
[2017-04-21] MEDS ORDERED: fentaNYL 50 MCG/HR PATCH TD SCH (19:15)
[2017-04-21] MEDS ORDERED: FAMOTIDINE 20 MG TABLET PO PRN (19:15)
[2017-04-21] MEDS ORDERED: COLCHICINE 0.6 MG TABLET PO PRN (19:15)
[2017-04-21] MEDS ORDERED: TEMAZEPAM 15 MG CAPSULE PO PRN (19:45)
[2017-04-21] MEDS ORDERED: LORazepam 1 MG TABLET PO PRN (19:45)
[2017-04-21] MEDS: DIPHENHYDRAMINE INJ 50 MG/ML VIAL IVP PRN ×2 (19:58→23:59)
[2017-04-21] MEDS: MORPHINE 4 MG/ML INJ. SYRINGE IVP PRN ×2 (20:01→23:59)
[2017-04-21 20:46] VITALS: BP_SYST 112
[2017-04-21] MEDS ORDERED: TEMAZEPAM 15 MG CAPSULE PO SCH (21:00)
[2017-04-21] MEDS: LR 1,000 ML IV SCH (21:00)
[2017-04-21] MEDS ORDERED: LORazepam 1 MG TABLET PO SCH (21:00)
[2017-04-21] MEDS: busPIRone HCL 5 MG TABLET PO SCH (21:00)
[2017-04-21] MEDS ORDERED: SACCHAROMYCES BOULARDII 250 MG CAPSULE (FLORASTOR) PO SCH (21:00)
[2017-04-21] MEDS: MULTIVITAMINS TAB 1 TABLET PO SCH (21:00)
[2017-04-21] MEDS ORDERED: MAGNESIUM PO SCH (21:00)
[2017-04-21] MEDS: POTASSIUM CHLORIDE 10 MEQ TAB.PRT.SR PO SCH (21:01)
[2017-04-21] MEDS: aMILoride HCL 5 MG TABLET PO SCH (21:05)
[2017-04-21 23:15] VITALS: BP_SYST 109
[2017-04-22 04:00] VITALS: BP_SYST 107
[2017-04-22] MEDS: MORPHINE 4 MG/ML INJ. SYRINGE IVP PRN ×5 (04:01→20:24)
[2017-04-22] MEDS: DIPHENHYDRAMINE INJ 50 MG/ML VIAL IVP PRN ×5 (04:01→20:22)
[2017-04-22 07:13] LABS: BASOPHILS # (AUTO) 0.1 K/uL (0.0-0.2); BASOPHILS % (AUTO) 0.7 % (0.0-2.0); EOSINOPHILS # (AUTO) 0.1 K/uL (0.0-0.4); EOSINOPHILS % (AUTO) 0.9 % (0.0-4.0); HEMATOCRIT 43.7 % (36-48); HEMOGLOBIN 13.9 g/dL (12.0-16.0); LYMPHOCYTES # (AUTO) 4.4 K/uL (1.0-5.5); LYMPHOCYTES % (AUTO) 30.9 % (20.5-51.5); MEAN CORPUSCULAR HEMOGLOBIN 27 pg (27-31); MEAN CORPUSCULAR HGB CONC 32 % (32-36); MEAN CORPUSCULAR VOLUME 85 fL (79.0-98.0); MONOCYTES # (AUTO) 0.8 K/uL (0.0-1.0); MONOCYTES % (AUTO) 5.8 % (1.7-9.3); NEUTROPHILS # (AUTO) 8.9 K/uL (1.8-7.7); NEUTROPHILS % (AUTO) 61.7 % (40.0-70.0); PLATELET COUNT (AUTO) 381 K/uL (130-430); RED BLOOD CELL COUNT(AUTO) 5.12 MIL/uL (4.2-6.2); RED CELL DISTRIBUTION WIDTH 14.1 % (9.0-15.0); WHITE BLOOD COUNT (AUTO) 14.3 K/uL (4.8-10.8)
[2017-04-22 07:43] LABS: ALBUMIN 3.7 g/dL (3.4-4.8); CALCIUM 9.7 mg/dL (8.4-11.0); CREATININE 1.15 mg/dL (0.55-1.30); POTASSIUM 3.6 mmol/L (3.5-5.1); TOTAL BILIRUBIN 0.8 mg/dL (0.0-1.0)
[2017-04-22 08:00] VITALS: BP_SYST 106
[2017-04-22] MEDS: SPIRONOLACTONE 50 MG TABLET (ALDACTONE) PO SCH (08:10)
[2017-04-22] MEDS: busPIRone HCL 5 MG TABLET PO SCH ×2 (08:11→20:51)
[2017-04-22] MEDS: DULoxetine HCL 30 MG CAPSULE.DR (CYMBALTA) PO SCH (08:12)
[2017-04-22] MEDS: LACTOBACILLUS RHAMNOSUS GG 1 CAP CAPSULE PO SCH (08:12)
[2017-04-22] MEDS: POTASSIUM CHLORIDE 10 MEQ TAB.PRT.SR PO SCH ×4 (08:12→20:51)
[2017-04-22] MEDS: MULTIVITAMINS TAB 1 TABLET PO SCH ×3 (08:12→20:52)
[2017-04-22] MEDS: CYCLOBENZAPRINE HCL 10 MG TABLET (FLEXERIL) PO SCH ×3 (08:13→08:25)
[2017-04-22] MEDS: aMILoride HCL 5 MG TABLET PO SCH ×2 (08:20→20:49)
[2017-04-22] MEDS: MAGNESIUM CHLORIDE 64 MG TABLET.DR PO SCH ×4 (09:00→20:52)
[2017-04-22] MEDS: LR 1,000 ML IV SCH (13:29)
[2017-04-22] MEDS: ONDANSETRON HCL 4 MG/2 ML VIAL IVP PRN ×2 (16:24→20:23)
[2017-04-22 17:00] VITALS: BP_SYST 116
[2017-04-22] MEDS ORDERED: ZOLPIDEM TARTRATE 5 MG TABLET PO PRN (18:30)
[2017-04-22 19:00] VITALS: BP_SYST 103
[2017-04-22 20:00] VITALS: BP_SYST 103
[2017-04-22] MEDS: BACLOFEN 10 MG TABLET PO SCH (20:50)
[2017-04-22 22:56] LABS: BILIRUBIN,URINE NEGATIVE (NEGATIVE); BLOOD, URINE NEGATIVE (NEGATIVE); CLARITY/URINE CLEAR (CLEAR); COLOR,URINE YELLOW (YELLOW); GLUCOSE,URINE NEGATIVE (NEGATIVE); KETONES,URINE NEGATIVE (NEGATIVE); LEUKOCYTE ESTERASE ,URINE NEGATIVE (NEGATIVE); NITRITE, URINE NEGATIVE (NEGATIVE); PH,URINE 5.5 (5.0-8.0); PROTEIN URINE NEGATIVE (NEGATIVE); UROBILINOGEN,URINE 0.2 (0.2-1.0)
[2017-04-23] MEDS: MORPHINE 4 MG/ML INJ. SYRINGE IVP PRN ×6 (00:29→21:31)
[2017-04-23] MEDS: DIPHENHYDRAMINE INJ 50 MG/ML VIAL IVP PRN ×6 (00:31→21:30)
[2017-04-23] MEDS: ONDANSETRON HCL 4 MG/2 ML VIAL IVP PRN ×6 (00:32→21:30)
[2017-04-23] MEDS: LR 1,000 ML IV SCH ×2 (00:57→14:18)
[2017-04-23 01:07] VITALS: BP_SYST 101
[2017-04-23 03:55] VITALS: BP_SYST 92
[2017-04-23 07:32] LABS: BASOPHILS # (AUTO) 0.1 K/uL (0.0-0.2); BASOPHILS % (AUTO) 0.9 % (0.0-2.0); EOSINOPHILS # (AUTO) 0.2 K/uL (0.0-0.4); EOSINOPHILS % (AUTO) 1.7 % (0.0-4.0); HEMATOCRIT 41.7 % (36-48); HEMOGLOBIN 13.5 g/dL (12.0-16.0); LYMPHOCYTES # (AUTO) 4.5 K/uL (1.0-5.5); LYMPHOCYTES % (AUTO) 33.7 % (20.5-51.5); MEAN CORPUSCULAR HEMOGLOBIN 27 pg (27-31); MEAN CORPUSCULAR HGB CONC 32 % (32-36); MEAN CORPUSCULAR VOLUME 85 fL (79.0-98.0); MONOCYTES # (AUTO) 0.8 K/uL (0.0-1.0); MONOCYTES % (AUTO) 6.1 % (1.7-9.3); NEUTROPHILS # (AUTO) 7.7 K/uL (1.8-7.7); NEUTROPHILS % (AUTO) 57.6 % (40.0-70.0); PLATELET COUNT (AUTO) 396 K/uL (130-430); RED BLOOD CELL COUNT(AUTO) 4.91 MIL/uL (4.2-6.2); RED CELL DISTRIBUTION WIDTH 14.1 % (9.0-15.0); WHITE BLOOD COUNT (AUTO) 13.3 K/uL (4.8-10.8)
[2017-04-23 07:58] LABS: CALCIUM 8.8 mg/dL (8.4-11.0); CREATININE 1.19 mg/dL (0.55-1.30); POTASSIUM 3.9 mmol/L (3.5-5.1)
[2017-04-23 08:00] VITALS: BP_SYST 109
[2017-04-23] MEDS: LACTOBACILLUS RHAMNOSUS GG 1 CAP CAPSULE PO SCH (08:32)
[2017-04-23] MEDS: BACLOFEN 10 MG TABLET PO SCH ×3 (08:33→14:17)
[2017-04-23] MEDS: DULoxetine HCL 30 MG CAPSULE.DR (CYMBALTA) PO SCH (08:33)
[2017-04-23] MEDS: POTASSIUM CHLORIDE 10 MEQ TAB.PRT.SR PO SCH ×4 (08:33→21:28)
[2017-04-23] MEDS: MULTIVITAMINS TAB 1 TABLET PO SCH ×3 (08:34→14:17)
[2017-04-23] MEDS: busPIRone HCL 5 MG TABLET PO SCH ×2 (08:34→21:27)
[2017-04-23] MEDS: MAGNESIUM CHLORIDE 64 MG TABLET.DR PO SCH ×4 (08:34→21:28)
[2017-04-23] MEDS: SPIRONOLACTONE 50 MG TABLET (ALDACTONE) PO SCH (08:36)
[2017-04-23] MEDS: aMILoride HCL 5 MG TABLET PO SCH ×2 (08:37→21:26)
[2017-04-23] MEDS ORDERED: MAGNESIUM SULFATE 4 GM in D5W 250 ML IV ONE (11:00)
[2017-04-23] MEDS ORDERED: COLCHICINE 0.6 MG TABLET PO ONE (13:45)
[2017-04-23] MEDS: metroNIDAZOLE 250 MG TABLET PO SCH ×2 (14:15→14:17)
[2017-04-23 17:34] VITALS: BP_SYST 110
[2017-04-23 19:50] VITALS: BP_SYST 93
[2017-04-23] MEDS: COLCHICINE 0.6 MG TABLET PO SCH (21:28)
[2017-04-24] VITALS (7 sets, daily range): BP systolic 100–116
[2017-04-24] MEDS: DIPHENHYDRAMINE INJ 50 MG/ML VIAL IVP PRN ×6 (01:21→23:18)
[2017-04-24] MEDS: ONDANSETRON HCL 4 MG/2 ML VIAL IVP PRN ×6 (01:21→23:18)
[2017-04-24] MEDS: MORPHINE 4 MG/ML INJ. SYRINGE IVP PRN ×6 (01:22→23:18)
[2017-04-24] MEDS: LR 1,000 ML IV SCH (04:42)
[2017-04-24] MEDS: metroNIDAZOLE 250 MG TABLET PO SCH ×3 (05:21→21:46)
[2017-04-24 06:29] LABS: BASOPHILS # (AUTO) 0.1 K/uL (0.0-0.2); BASOPHILS % (AUTO) 0.5 % (0.0-2.0); EOSINOPHILS # (AUTO) 0.4 K/uL (0.0-0.4); HEMOGLOBIN 11.8 g/dL (12.0-16.0); LYMPHOCYTES # (AUTO) 4.2 K/uL (1.0-5.5); LYMPHOCYTES % (AUTO) 40.2 % (20.5-51.5); MEAN CORPUSCULAR HEMOGLOBIN 28 pg (27-31); MEAN CORPUSCULAR HGB CONC 33 % (32-36); MEAN CORPUSCULAR VOLUME 85 fL (79.0-98.0); MONOCYTES # (AUTO) 0.7 K/uL (0.0-1.0); MONOCYTES % (AUTO) 6.5 % (1.7-9.3); NEUTROPHILS # (AUTO) 5.2 K/uL (1.8-7.7); NEUTROPHILS % (AUTO) 48.8 % (40.0-70.0); PLATELET COUNT (AUTO) 318 K/uL (130-430); RED BLOOD CELL COUNT(AUTO) 4.24 MIL/uL (4.2-6.2); RED CELL DISTRIBUTION WIDTH 14.1 % (9.0-15.0); WHITE BLOOD COUNT (AUTO) 10.6 K/uL (4.8-10.8)
[2017-04-24 06:46] LABS: CREATININE 1.19 mg/dL (0.55-1.30); POTASSIUM 3.9 mmol/L (3.5-5.1)
[2017-04-24] MEDS: LACTOBACILLUS RHAMNOSUS GG 1 CAP CAPSULE PO SCH (10:34)
[2017-04-24] MEDS: POTASSIUM CHLORIDE 10 MEQ TAB.PRT.SR PO SCH ×4 (10:34→21:46)
[2017-04-24] MEDS: MULTIVITAMINS TAB 1 TABLET PO SCH ×3 (10:34→21:46)
[2017-04-24] MEDS: aMILoride HCL 5 MG TABLET PO SCH ×2 (10:34→22:00)
[2017-04-24] MEDS: COLCHICINE 0.6 MG TABLET PO SCH ×2 (10:35→21:46)
[2017-04-24] MEDS: DULoxetine HCL 30 MG CAPSULE.DR (CYMBALTA) PO SCH (10:35)
[2017-04-24] MEDS: busPIRone HCL 5 MG TABLET PO SCH ×2 (10:35→21:45)
[2017-04-24] MEDS: SPIRONOLACTONE 50 MG TABLET (ALDACTONE) PO SCH (10:36)
[2017-04-24] MEDS: BACLOFEN 10 MG TABLET PO SCH ×3 (10:36→21:46)
[2017-04-24] MEDS: MAGNESIUM CHLORIDE 64 MG TABLET.DR PO SCH ×4 (10:37→21:46)
[2017-04-24] MEDS ORDERED: MAGNESIUM SULFATE 4 GM in D5W 250 ML IV ONE (14:15)
== END 2017-04-25 00:30 | disposition home or self-care (01) | DRG 866 ==
LOC: SED 14:10 → STU 16:32 → SMU 16:45
PROVIDERS: ADMIT Internal Medicine; ATTEND Internal Medicine
DX: B34.9 Viral infection, unspecified (principal); R65.10 Systemic inflammatory response syndrome (SIRS) of non-infectious origin without acute organ dysfunction; Z68.41 Body mass index [BMI] 40.0-44.9, adult; E83.42 Hypomagnesemia; E66.01 Morbid (severe) obesity due to excess calories; M11.20 Other chondrocalcinosis, unspecified site; M79.7 Fibromyalgia; F32.9 Major depressive disorder, single episode, unspecified; F41.9 Anxiety disorder, unspecified; N18.9 Chronic kidney disease, unspecified; G89.4 Chronic pain syndrome; Z88.0 Allergy status to penicillin; Z88.8 Allergy status to other drugs, medicaments and biological substances; Z91.018 Allergy to other foods; Z90.710 Acquired absence of both cervix and uterus; Z79.899 Other long term (current) drug therapy
CPT/HCPCS: 36415; 71020-TC; 80048; 80053; 81003; 83735-TC; 85025; 87081; 96365; 96375; 99285; J1200; J2270; J2405; J3475; J7050; J7060; J7120

== ENCOUNTER 2017-05-08 17:03 | Emergency (ER) | payer OTHER ==
[~2017-05-08] VITALS: Ht 165.1 cm; Wt 108.9 kg
[2017-05-08 17:08] VITALS: BP_SYST 124
[2017-05-08] MEDS ORDERED: NACL 0.9% 1,000 ML IV ONE (17:44)
[2017-05-08] MEDS ORDERED: MORPHINE 2 MG/ML INJ. SYRINGE IVP ONE (17:45)
[2017-05-08] MEDS ORDERED: PROCHLORPERAZINE EDISYLATE 10 MG/2 ML VIAL IVP ONE (17:45)
[2017-05-08] MEDS ORDERED: DIPHENHYDRAMINE INJ 50 MG/ML VIAL IVP ONE (17:45)
[2017-05-08 18:07] LABS: BASOPHILS # (AUTO) 0.1 K/uL (0.0-0.2); BASOPHILS % (AUTO) 0.9 % (0.0-2.0); EOSINOPHILS # (AUTO) 0.1 K/uL (0.0-0.4); EOSINOPHILS % (AUTO) 1.8 % (0.0-4.0); HEMATOCRIT 44.4 % (36-48); HEMOGLOBIN 14.1 g/dL (12.0-16.0); LYMPHOCYTES # (AUTO) 2.9 K/uL (1.0-5.5); LYMPHOCYTES % (AUTO) 37.2 % (20.5-51.5); MEAN CORPUSCULAR HEMOGLOBIN 27 pg (27-31); MEAN CORPUSCULAR HGB CONC 32 % (32-36); MEAN CORPUSCULAR VOLUME 84 fL (79.0-98.0); MONOCYTES # (AUTO) 0.4 K/uL (0.0-1.0); MONOCYTES % (AUTO) 5.4 % (1.7-9.3); NEUTROPHILS # (AUTO) 4.2 K/uL (1.8-7.7); NEUTROPHILS % (AUTO) 54.7 % (40.0-70.0); PLATELET COUNT (AUTO) 404 K/uL (130-430); RED BLOOD CELL COUNT(AUTO) 5.31 MIL/uL (4.2-6.2); RED CELL DISTRIBUTION WIDTH 14.3 % (9.0-15.0); WHITE BLOOD COUNT (AUTO) 7.7 K/uL (4.8-10.8)
[2017-05-08 18:11] LABS: CALCIUM 9.9 mg/dL (8.4-11.0)
[2017-05-08 18:16] LABS: ALBUMIN 4.5 g/dL (3.4-4.8); TOTAL BILIRUBIN 0.8 mg/dL (0.0-1.0)
[2017-05-08] MEDS ORDERED: MAGNESIUM SULFATE IN WATER 100 ML IV ONE (18:30)
[2017-05-08 19:30] VITALS: BP_SYST 121
== END 2017-05-08 19:30 | disposition home or self-care (01) ==
LOC: SED 17:03
DX: E83.42 Hypomagnesemia (principal); R10.9 Unspecified abdominal pain; F41.9 Anxiety disorder, unspecified; M10.9 Gout, unspecified; J44.9 Chronic obstructive pulmonary disease, unspecified; I10 Essential (primary) hypertension; Z79.899 Other long term (current) drug therapy; Z88.0 Allergy status to penicillin; Z91.018 Allergy to other foods
CPT/HCPCS: 36415; 80053; 83690; 83735; 85025; 96361; 96365; 96375; 99284; J0780; J1200; J2270; J3475; J7030

== ENCOUNTER 2017-05-12 13:59 | Emergency (ER) | payer OTHER ==
[~2017-05-12] VITALS: Ht 162.6 cm; Wt 108.9 kg
[2017-05-12 14:14] VITALS: BP_SYST 115
[2017-05-12 14:55] LABS: BASOPHILS # (AUTO) 0.1 K/uL (0.0-0.2); BASOPHILS % (AUTO) 1.1 % (0.0-2.0); EOSINOPHILS # (AUTO) 0.1 K/uL (0.0-0.4); EOSINOPHILS % (AUTO) 1.8 % (0.0-4.0); HEMATOCRIT 41.1 % (36-48); HEMOGLOBIN 13.1 g/dL (12.0-16.0); LYMPHOCYTES # (AUTO) 3.4 K/uL (1.0-5.5); LYMPHOCYTES % (AUTO) 42.9 % (20.5-51.5); MEAN CORPUSCULAR HEMOGLOBIN 27 pg (27-31); MEAN CORPUSCULAR HGB CONC 32 % (32-36); MEAN CORPUSCULAR VOLUME 85 fL (79.0-98.0); MONOCYTES # (AUTO) 0.5 K/uL (0.0-1.0); MONOCYTES % (AUTO) 5.9 % (1.7-9.3); NEUTROPHILS # (AUTO) 3.8 K/uL (1.8-7.7); NEUTROPHILS % (AUTO) 48.3 % (40.0-70.0); PLATELET COUNT (AUTO) 382 K/uL (130-430); RED BLOOD CELL COUNT(AUTO) 4.86 MIL/uL (4.2-6.2); RED CELL DISTRIBUTION WIDTH 13.9 % (9.0-15.0); WHITE BLOOD COUNT (AUTO) 7.9 K/uL (4.8-10.8)
[2017-05-12 15:06] LABS: CALCIUM 8.7 mg/dL (8.4-11.0); CREATININE 1.2 mg/dL (0.55-1.30); POTASSIUM 4.3 mmol/L (3.5-5.1)
[2017-05-12 15:10] LABS: ALBUMIN 4.1 g/dL (3.4-4.8); TOTAL BILIRUBIN 0.8 mg/dL (0.0-1.0)
[2017-05-12] MEDS ORDERED: MAGNESIUM SULFATE IN WATER 1,000 ML IV ONE (20:15)
[2017-05-12] MEDS ORDERED: MORPHINE 4 MG/ML INJ. SYRINGE IVP ONE (20:30)
[2017-05-12] MEDS ORDERED: DIPHENHYDRAMINE INJ 50 MG/ML VIAL IVP ONE ×2 (20:30→22:45)
[2017-05-12] MEDS ORDERED: KETOROLAC TROMETHAMINE 15 MG VIAL IVP ONE (20:30)
[2017-05-12] MEDS ORDERED: MAGNESIUM SULFATE 1 GM/2 ML VIAL ONE (20:38)
[2017-05-12] MEDS ORDERED: MORPHINE 2 MG/ML INJ. SYRINGE IVP ONE (22:45)
[2017-05-13 00:24] VITALS: BP_SYST 122
== END 2017-05-13 01:05 | disposition home or self-care (01) ==
LOC: SED 13:59
DX: E83.42 Hypomagnesemia (principal); E26.81 Bartter's syndrome; J44.9 Chronic obstructive pulmonary disease, unspecified; I10 Essential (primary) hypertension; M10.9 Gout, unspecified; Z88.0 Allergy status to penicillin; Z91.018 Allergy to other foods; Z79.899 Other long term (current) drug therapy
CPT/HCPCS: 36415; 80053; 83735; 85025; 96365; 96366; 96375; 96376; 99285; J1200; J1885; J2270 ×2; J3475; J7030

== ENCOUNTER 2017-05-15 12:34 | Emergency (ER) | payer OTHER ==
[~2017-05-15] VITALS: Ht 167.6 cm; Wt 108.9 kg
[2017-05-15 12:34] VITALS: BP_SYST 120
[2017-05-15 12:59] LABS: BASOPHILS % (AUTO) 0.6 % (0.0-2.0); EOSINOPHILS # (AUTO) 0.1 K/uL (0.0-0.4); EOSINOPHILS % (AUTO) 1.4 % (0.0-4.0); HEMATOCRIT 39.8 % (36-48); HEMOGLOBIN 12.9 g/dL (12.0-16.0); LYMPHOCYTES # (AUTO) 2.1 K/uL (1.0-5.5); LYMPHOCYTES % (AUTO) 30.2 % (20.5-51.5); MEAN CORPUSCULAR HEMOGLOBIN 27 pg (27-31); MEAN CORPUSCULAR HGB CONC 32 % (32-36); MEAN CORPUSCULAR VOLUME 83 fL (79.0-98.0); MONOCYTES # (AUTO) 0.3 K/uL (0.0-1.0); MONOCYTES % (AUTO) 4.5 % (1.7-9.3); NEUTROPHILS # (AUTO) 4.4 K/uL (1.8-7.7); NEUTROPHILS % (AUTO) 63.3 % (40.0-70.0); PLATELET COUNT (AUTO) 334 K/uL (130-430); RED BLOOD CELL COUNT(AUTO) 4.77 MIL/uL (4.2-6.2); RED CELL DISTRIBUTION WIDTH 14.1 % (9.0-15.0); WHITE BLOOD COUNT (AUTO) 6.9 K/uL (4.8-10.8)
[2017-05-15 13:06] LABS: CALCIUM 9.5 mg/dL (8.4-11.0); CREATININE 1.09 mg/dL (0.55-1.30); POTASSIUM 3.4 mmol/L (3.5-5.1)
[2017-05-15 13:10] LABS: ALBUMIN 4.2 g/dL (3.4-4.8); TOTAL BILIRUBIN 0.9 mg/dL (0.0-1.0)
[2017-05-15] MEDS ORDERED: MAGNESIUM SULFATE 50 ML IV ONE ×2 (13:30)
[2017-05-15] MEDS ORDERED: KETOROLAC TROMETHAMINE 30 MG VIAL IVP ONE (13:30)
[2017-05-15 13:33] LABS: BILIRUBIN,URINE NEGATIVE (NEGATIVE); BLOOD, URINE NEGATIVE (NEGATIVE); CLARITY/URINE CLEAR (CLEAR); COLOR,URINE YELLOW (YELLOW); GLUCOSE,URINE NEGATIVE (NEGATIVE); KETONES,URINE NEGATIVE (NEGATIVE); LEUKOCYTE ESTERASE ,URINE NEGATIVE (NEGATIVE); NITRITE, URINE NEGATIVE (NEGATIVE); PROTEIN URINE NEGATIVE (NEGATIVE); UROBILINOGEN,URINE 0.2 (0.2-1.0)
[2017-05-15] MEDS ORDERED: DIPHENHYDRAMINE INJ 50 MG/ML VIAL IVP ONE (14:30)
[2017-05-15] MEDS ORDERED: MORPHINE 4 MG/ML INJ. SYRINGE IVP ONE (14:30)
[2017-05-15 17:25] VITALS: BP_SYST 114
== END 2017-05-15 17:25 | disposition home or self-care (01) ==
LOC: SED 12:34
DX: E83.42 Hypomagnesemia (principal); J44.9 Chronic obstructive pulmonary disease, unspecified; I10 Essential (primary) hypertension; F41.9 Anxiety disorder, unspecified; M10.9 Gout, unspecified; Z98.84 Bariatric surgery status; Z90.710 Acquired absence of both cervix and uterus; Z88.0 Allergy status to penicillin
CPT/HCPCS: 36415; 80053; 81003; 83735; 85025; 96365; 96375; 99284; J1200; J1885; J2270; J3475; J7040

== ENCOUNTER 2017-05-19 15:55 | Emergency (ER) | payer OTHER ==
[~2017-05-19] VITALS: Ht 162.6 cm; Wt 108.9 kg
[2017-05-19 16:04] VITALS: BP_SYST 113
--- NOTE | 2017-05-19 16:11 | NUR ---
Patient to ER bed 03 to gown for evaluation. Side rails up.
[2017-05-19] MEDS ORDERED: MAGNESIUM SULFATE 4 GM in D5W 250 ML IV ONE (16:30)
--- NOTE | 2017-05-19 16:30 | NUR ---
ER at bedside examining patient.
--- NOTE | 2017-05-19 16:34 | NUR ---
Pt complains of leg pain bilaterally, states labs are low. Pt ambulated into waiting room and placed in wheelchair to bed 3. No other noted injuries/complaints per pt or noted.
[2017-05-19 16:44] LABS: BASOPHILS # (AUTO) 0.1 K/uL (0.0-0.2); BASOPHILS % (AUTO) 0.9 % (0.0-2.0); EOSINOPHILS # (AUTO) 0.1 K/uL (0.0-0.4); EOSINOPHILS % (AUTO) 1.5 % (0.0-4.0); HEMATOCRIT 38.3 % (36-48); HEMOGLOBIN 12.6 g/dL (12.0-16.0); LYMPHOCYTES # (AUTO) 2.4 K/uL (1.0-5.5); MEAN CORPUSCULAR HEMOGLOBIN 28 pg (27-31); MEAN CORPUSCULAR HGB CONC 33 % (32-36); MEAN CORPUSCULAR VOLUME 84 fL (79.0-98.0); MONOCYTES # (AUTO) 0.3 K/uL (0.0-1.0); NEUTROPHILS # (AUTO) 4.9 K/uL (1.8-7.7); NEUTROPHILS % (AUTO) 63.6 % (40.0-70.0); PLATELET COUNT (AUTO) 318 K/uL (130-430); RED BLOOD CELL COUNT(AUTO) 4.57 MIL/uL (4.2-6.2); RED CELL DISTRIBUTION WIDTH 13.9 % (9.0-15.0); WHITE BLOOD COUNT (AUTO) 7.9 K/uL (4.8-10.8)
[2017-05-19] MEDS ORDERED: KETOROLAC TROMETHAMINE 30 MG VIAL IVP ONE (16:45)
[2017-05-19 16:55] LABS: CALCIUM 9.6 mg/dL (8.4-11.0); CREATININE 1.03 mg/dL (0.55-1.30); POTASSIUM 3.6 mmol/L (3.5-5.1)
--- NOTE | 2017-05-19 16:55 | NUR ---
Pt was given pain medication, no noted adverse reaction, will continue to monitor.
[2017-05-19] MEDS ORDERED: MAGNESIUM SULFATE 1 GM/2 ML VIAL ONE (16:58)
[2017-05-19 16:59] LABS: TOTAL BILIRUBIN 0.9 mg/dL (0.0-1.0)
--- NOTE | 2017-05-19 17:18 | NUR ---
Pharmacy brought magnesium and it was started, pt tolerating it well. Will continue to monitor.
--- NOTE | 2017-05-19 17:55 | NUR ---
Pt is complaining of pain in bilateral legs, Dr Brito is aware and spoke with Dr Mota and both state that pt should go to pain management doctor. Pt is aware. Vitals are within normal range.
--- NOTE | 2017-05-19 19:05 | NUR ---
Report recieved from Odalys HUNG. Will assume care at this time.
[2017-05-19 19:51] VITALS: BP_SYST 129
--- NOTE | 2017-05-19 19:51 | NUR ---
Patient given written and verbal discharge instructions and verbalizes understanding. ER MD Cornejocussed with patient the results and treatment provided. Patient in stable condition. ID arm band removed. IV catheter removed intact and dressing applied, no active bleeding. NO Rx given. Patient educated on pain management and to follow up with PMD. Pain Scale 0/10. Opportunity for questions provided and answered.
== END 2017-05-19 19:51 | disposition home or self-care (01) ==
LOC: SED 15:55
DX: M79.1 Myalgia (principal); E83.42 Hypomagnesemia; J44.9 Chronic obstructive pulmonary disease, unspecified; I10 Essential (primary) hypertension; E07.9 Disorder of thyroid, unspecified; M10.9 Gout, unspecified; Z98.890 Other specified postprocedural states; Z88.6 Allergy status to analgesic agent; Z88.0 Allergy status to penicillin; Z88.8 Allergy status to other drugs, medicaments and biological substances
CPT/HCPCS: 36415; 80053; 83735; 85025; 96365; 96366; 96375; 99285; J1885; J3475; J7060

== ENCOUNTER 2017-05-23 20:56 | Emergency (ER) | payer OTHER ==
[~2017-05-23] VITALS: Ht 157.5 cm; Wt 108.9 kg
[2017-05-23 21:06] VITALS: BP_SYST 144
--- NOTE | 2017-05-23 21:16 | NUR ---
Patient to ER bed 06 to gown for evaluation. Side rails up. Report given to Luis HUNG.
--- NOTE | 2017-05-23 21:20 | NUR ---
Patient to ER for evaluation of bilateral leg pain, abdominal pain/cramping along with nausea. Patient reports that pain has been going on since 0900 today. Patient rates pain as 8/10. Patient able to ambulate to room with slow, steady gait. Awaiting evaluation by ER MD-will continue to observe and assess.
[2017-05-23 21:25] LABS: EOSINOPHILS # (AUTO) 0.2 K/uL (0.0-0.4); EOSINOPHILS % (AUTO) 1.9 % (0.0-4.0); HEMATOCRIT 40.6 % (36-48); HEMOGLOBIN 13.3 g/dL (12.0-16.0); LYMPHOCYTES # (AUTO) 3.3 K/uL (1.0-5.5); LYMPHOCYTES % (AUTO) 34.6 % (20.5-51.5); MEAN CORPUSCULAR HEMOGLOBIN 27 pg (27-31); MEAN CORPUSCULAR HGB CONC 33 % (32-36); MEAN CORPUSCULAR VOLUME 84 fL (79.0-98.0); MONOCYTES # (AUTO) 0.5 K/uL (0.0-1.0); MONOCYTES % (AUTO) 5.4 % (1.7-9.3); PLATELET COUNT (AUTO) 352 K/uL (130-430); RED BLOOD CELL COUNT(AUTO) 4.86 MIL/uL (4.2-6.2); RED CELL DISTRIBUTION WIDTH 14.1 % (9.0-15.0); WHITE BLOOD COUNT (AUTO) 9.4 K/uL (4.8-10.8)
[2017-05-23 21:28] LABS: BASOPHILS % (AUTO) 0.7 % (0.0-2.0); NEUTROPHILS # (AUTO) 5.4 K/uL (1.8-7.7); NEUTROPHILS % (AUTO) 57.4 % (40.0-70.0)
[2017-05-23 21:29] LABS: CALCIUM 9.1 mg/dL (8.4-11.0); CREATININE 0.97 mg/dL (0.55-1.30); POTASSIUM 3.9 mmol/L (3.5-5.1)
[2017-05-23 21:34] LABS: TOTAL BILIRUBIN 0.5 mg/dL (0.0-1.0)
[2017-05-23] MEDS ORDERED: NACL 0.9% 1,000 ML IV ONE (21:45)
--- NOTE | 2017-05-23 21:45 | NUR ---
Dr Canales at bedside to evaluate patient.
[2017-05-23] MEDS ORDERED: DIPHENHYDRAMINE INJ 50 MG/ML VIAL IVP ONE (22:00)
[2017-05-23] MEDS ORDERED: HYDROmorphone 1 MG INJ. 1 MG/ML AMPUL IVP ONE ×2 (22:00→23:45)
[2017-05-23] MEDS ORDERED: MAGNESIUM SULFATE 50 ML IV ONE ×2 (22:15→23:45)
[2017-05-23] MEDS ORDERED: KCL 40 mEq in D5W 1000 mL 1,000 ML IV ONE (22:15)
--- NOTE | 2017-05-23 22:50 | NUR ---
Scanner not working, unable to scan patient or medication. Patient medicated as ordered. IVF infusing without difficulty-no redness or swelling noted at site
[2017-05-23] MEDS ORDERED: POTASSIUM CHLORIDE 20 MEQ TAB.PRT.SR PO ONE (23:15)
--- NOTE | 2017-05-23 23:15 | NUR ---
Scanner not working-unable to scan medication or potassium. Patient medicated as ordered. IVF infusing without difficulty, no redness or swelling noted at site. Magnesium infusing without difficulty via pump. Patient reports that she is more comfortable now. No adverse reaction noted to medication.
--- NOTE | 2017-05-23 23:55 | NUR ---
Patient medicated as ordered, scanner broken-unable to scan patient or medication. IV fluid bolus completed-patient tolerated well, no adverse reaction noted. Patient remains on well flow operator which shows sinus rhythm without ectopy.
--- NOTE | 2017-05-24 00:12 | NUR ---
IV magnesium infusing without difficulty via pump, will administer second bolus after first bolus is complete. Patient tolerating infusion well-no adverse reaction noted to medication.
--- NOTE | 2017-05-24 00:27 | NUR ---
Lights dimmed for patient comfort. Second magnesium bolus up and infusing without difficulty via pump. No redness or swelling noted at site. Patient remains on monitoring engineer which continues to show sinus rhythm without ectopy.
[2017-05-24] MEDS ORDERED: NACL 0.9% 1,000 ML IV ONE ×2 (01:00→02:15)
--- NOTE | 2017-05-24 01:33 | NUR ---
IV magnesium infusing without difficulty via pump-no redness or swelling noted at site. Patient remains on funeral car driver which shows sinus rhythm without ectopy. Will discharge patient when IV magnesium bolus is complete. Patient resting quietly in nad.
--- NOTE | 2017-05-24 02:05 | NUR ---
Patient c/o burning at IV site from Magnesium infusion. IV NS bolus completed. OK to hang third NS bolus from Dr Canales. Patient requesting additional pain medication and Benadryl. Orders received. Patient up to bathroom ambulating with slow, steady gait. Patient back on monitoring and evaluation advisor still showing sinus rhythm. Patient aware of dc after magnesium infusion.
[2017-05-24] MEDS ORDERED: HYDROmorphone 1 MG INJ. 1 MG/ML AMPUL IVP ONE (02:15)
[2017-05-24] MEDS ORDERED: DIPHENHYDRAMINE INJ 50 MG/ML VIAL IVP ONE (02:15)
--- NOTE | 2017-05-24 02:50 | NUR ---
Magnesium infusion complete, patient tolerated well. Patient reports that upon discharge she will not be leaving the hospital, but will be going to her friends room who is an inpatient in the hospital. Patient ambulated with slow, steady gait in nad.
[2017-05-24 02:55] VITALS: BP_SYST 120
--- NOTE | 2017-05-24 02:55 | NUR ---
Patient given written and verbal discharge instructions and verbalizes understanding. ER MD discussed with patient the results and treatment provided. Patient in stable condition. ID arm band removed. IV catheter removed intact and dressing applied, no active bleeding. Rx of [place] given. Patient educated on pain management and to follow up with PMD. Pain Scale 3. Opportunity for questions provided and answered.
== END 2017-05-24 02:55 | disposition home or self-care (01) ==
LOC: SED 20:56
DX: G89.29 Other chronic pain (principal); M79.604 Pain in right leg; M79.605 Pain in left leg; E83.42 Hypomagnesemia; J44.9 Chronic obstructive pulmonary disease, unspecified; I10 Essential (primary) hypertension; M10.9 Gout, unspecified; Z88.0 Allergy status to penicillin; Z79.899 Other long term (current) drug therapy
CPT/HCPCS: 36415; 80053; 83735; 85025; 96365; 96366; 96375; 96376; 99285; J1170 ×2; J1200 ×2; J3475 ×2; J7030 ×2

== ENCOUNTER 2017-05-25 16:07 | Emergency (ER) | payer OTHER ==
[~2017-05-25] VITALS: Ht 162.6 cm; Wt 95.3 kg
[2017-05-25 16:10] VITALS: BP_SYST 108
[2017-05-25] MEDS ORDERED: MORPHINE 4 MG/ML INJ. SYRINGE IVP ONE (16:30)
[2017-05-25] MEDS ORDERED: PROCHLORPERAZINE EDISYLATE 10 MG/2 ML VIAL IVP ONE (16:30)
[2017-05-25] MEDS ORDERED: DIPHENHYDRAMINE INJ 50 MG/ML VIAL IVP ONE (16:30)
[2017-05-25 17:06] LABS: CALCIUM 9.1 mg/dL (8.4-11.0); CREATININE 1.01 mg/dL (0.55-1.30); POTASSIUM 3.9 mmol/L (3.5-5.1)
[2017-05-25] MEDS ORDERED: MAGNESIUM SULFATE IN WATER 100 ML IV ONE (17:15)
[2017-05-25 18:55] VITALS: BP_SYST 124
== END 2017-05-25 18:55 | disposition home or self-care (01) ==
LOC: SED 16:07
DX: E83.42 Hypomagnesemia (principal); K22.70 Barrett's esophagus without dysplasia; M54.5 Low back pain; J44.9 Chronic obstructive pulmonary disease, unspecified; I10 Essential (primary) hypertension; F41.9 Anxiety disorder, unspecified; M10.9 Gout, unspecified; Z88.0 Allergy status to penicillin; Z91.018 Allergy to other foods; Z79.899 Other long term (current) drug therapy; E66.8 Other obesity; Z68.36 Body mass index [BMI] 36.0-36.9, adult
CPT/HCPCS: 36415; 80048; 83735; 96365; 96375; 99284; J0780; J1200; J2270; J3475

== ENCOUNTER 2017-05-27 13:33 | Emergency (ER) | payer OTHER ==
[~2017-05-27] VITALS: Ht 167.6 cm; Wt 108.9 kg
[2017-05-27 13:35] VITALS: BP_SYST 133
[2017-05-27 14:43] LABS: BASOPHILS # (AUTO) 0.1 K/uL (0.0-0.2); EOSINOPHILS # (AUTO) 0.2 K/uL (0.0-0.4); MONOCYTES # (AUTO) 0.4 K/uL (0.0-1.0)
[2017-05-27 14:48] LABS: BASOPHILS % (AUTO) 1.8 % (0.0-2.0); EOSINOPHILS % (AUTO) 2.5 % (0.0-4.0); HEMATOCRIT 40.3 % (36-48); HEMOGLOBIN 13.2 g/dL (12.0-16.0); LYMPHOCYTES # (AUTO) 2.8 K/uL (1.0-5.5); LYMPHOCYTES % (AUTO) 37.7 % (20.5-51.5); MEAN CORPUSCULAR HEMOGLOBIN 27 pg (27-31); MEAN CORPUSCULAR HGB CONC 33 % (32-36); MEAN CORPUSCULAR VOLUME 83 fL (79.0-98.0); MONOCYTES % (AUTO) 5.4 % (1.7-9.3); NEUTROPHILS # (AUTO) 3.9 K/uL (1.8-7.7); NEUTROPHILS % (AUTO) 52.6 % (40.0-70.0); PLATELET COUNT (AUTO) 347 K/uL (130-430); RED BLOOD CELL COUNT(AUTO) 4.83 MIL/uL (4.2-6.2); RED CELL DISTRIBUTION WIDTH 13.7 % (9.0-15.0); WHITE BLOOD COUNT (AUTO) 7.4 K/uL (4.8-10.8)
[2017-05-27 14:54] LABS: POTASSIUM 3.3 mmol/L (3.5-5.1)
[2017-05-27 14:59] LABS: ALBUMIN 3.8 g/dL (3.4-4.8); TOTAL BILIRUBIN 0.7 mg/dL (0.0-1.0)
[2017-05-27] MEDS ORDERED: MAGNESIUM SULFATE IN WATER 100 ML IV ONE (15:15)
[2017-05-27] MEDS ORDERED: DIPHENHYDRAMINE INJ 50 MG/ML VIAL IVP ONE (15:15)
[2017-05-27] MEDS ORDERED: NACL 0.9% 1,000 ML IV ONE (15:15)
[2017-05-27] MEDS ORDERED: MAGNESIUM SULFATE 4 GM in D5W 250 ML IV ONE (15:15)
[2017-05-27] MEDS ORDERED: POTASSIUM CHLORIDE 20 MEQ TAB.PRT.SR PO ONE (16:15)
[2017-05-27 16:45] VITALS: BP_SYST 121
== END 2017-05-27 16:45 | disposition home or self-care (01) ==
LOC: SED 13:33
DX: L29.9 Pruritus, unspecified (principal); E87.6 Hypokalemia; E83.42 Hypomagnesemia; J44.9 Chronic obstructive pulmonary disease, unspecified; I10 Essential (primary) hypertension; F41.9 Anxiety disorder, unspecified; M79.7 Fibromyalgia; Z90.710 Acquired absence of both cervix and uterus; Z88.0 Allergy status to penicillin
CPT/HCPCS: 36415; 80053; 83735; 85025; 96361; 96365; 96375; 99284; J1200; J3475; J7030

== ENCOUNTER 2017-06-05 20:13 | Emergency (ER) | payer OTHER ==
[2017-03-06 15:15] VITALS: Ht 162.6 cm; Wt 108.9 kg
[~2017-06-05] VITALS: Ht 162.6 cm; Wt 108.9 kg
[~2017-06-05 20:13] MED LIST changes: +AMIL5TAB9; +CLON0.5T4 PO; +COLC0.6T67; +COLCHINE; +CYCL-10 PO; +CYCLOBENZAPINE; +CYM30; +DULO60CA41; +FENT1PAT4; +FERR236T; +HYDR-1189 PO; +HYDR-4100 PO; +IRON1CAP18; +LORA1TAB; +MAGN400T10 PO; +METR500T PO; +MUPI1OIN4; +NORCO5; +POTA20PA PO; +POTA20PA4; +POTA20TA83; +PRAV40TA PO; +PRAV40TA63; +PRO40 PO; +SPIR25TA PO; +VANC125C10 PO
[2017-06-05 20:19] VITALS: BP 135/72; PULSE 104; RESP 19; TEMP 97.7; O2SAT 98
[2017-06-05] MEDS ORDERED: ONDANSETRON HCL 4 MG/2 ML VIAL IVP ONE (20:45)
[2017-06-05 20:52] LABS: BILIRUBIN,URINE NEGATIVE (NEGATIVE); BLOOD, URINE NEGATIVE (NEGATIVE); CLARITY/URINE CLEAR (CLEAR); COLOR,URINE YELLOW (YELLOW); GLUCOSE,URINE NEGATIVE (NEGATIVE); KETONES,URINE NEGATIVE (NEGATIVE); LEUKOCYTE ESTERASE ,URINE NEGATIVE (NEGATIVE); NITRITE, URINE NEGATIVE (NEGATIVE); PROTEIN URINE NEGATIVE (NEGATIVE); UROBILINOGEN,URINE 0.2 (0.2-1.0)
[2017-06-05 21:13] LABS: BASOPHILS # (AUTO) 0.1 K/uL (0.0-0.2); BASOPHILS % (AUTO) 1.1 % (0.0-2.0); EOSINOPHILS # (AUTO) 0.2 K/uL (0.0-0.4); EOSINOPHILS % (AUTO) 1.4 % (0.0-4.0); HEMATOCRIT 44.6 % (36-48); LYMPHOCYTES # (AUTO) 4.2 K/uL (1.0-5.5); LYMPHOCYTES % (AUTO) 37.5 % (20.5-51.5); MEAN CORPUSCULAR HEMOGLOBIN 26 pg (27-31); MEAN CORPUSCULAR HGB CONC 32 % (32-36); MEAN CORPUSCULAR VOLUME 84 fL (79.0-98.0); MONOCYTES # (AUTO) 0.8 K/uL (0.0-1.0); MONOCYTES % (AUTO) 6.7 % (1.7-9.3); NEUTROPHILS # (AUTO) 5.9 K/uL (1.8-7.7); NEUTROPHILS % (AUTO) 53.3 % (40.0-70.0); PLATELET COUNT (AUTO) 433 K/uL (130-430); RED BLOOD CELL COUNT(AUTO) 5.34 MIL/uL (4.2-6.2); RED CELL DISTRIBUTION WIDTH 13.8 % (9.0-15.0); WHITE BLOOD COUNT (AUTO) 11.2 K/uL (4.8-10.8)
[2017-06-05 21:23] LABS: CREATININE 1.21 mg/dL (0.55-1.30); POTASSIUM 3.4 mmol/L (3.5-5.1)
[2017-06-05 21:27] LABS: ALBUMIN 4.5 g/dL (3.4-4.8); PHOSPHORUS 3.9 mg/dL (2.7-4.5); TOTAL BILIRUBIN 0.5 mg/dL (0.0-1.0)
[2017-06-05] MEDS ORDERED: MAGNESIUM SULFATE 1 GM in NS 100 ML IV ONE (21:45)
[2017-06-05] MEDS ORDERED: POTASSIUM CHLORIDE 20 MEQ/PKT PACKET PO ONE (21:45)
[2017-06-05] MEDS ORDERED: KETOROLAC TROMETHAMINE 30 MG VIAL IVP ONE (21:45)
[2017-06-05] MEDS ORDERED: MAGNESIUM SULFATE 1 GM/2 ML VIAL ONE (22:04)
[2017-06-05 22:40] VITALS: BP 99/65; PULSE 85; RESP 16; TEMP 98.5; O2SAT 99
== END 2017-06-05 22:40 | disposition home or self-care (01) ==
LOC: SED 20:13
DX: E87.6 Hypokalemia (principal); J44.9 Chronic obstructive pulmonary disease, unspecified; I10 Essential (primary) hypertension; F41.9 Anxiety disorder, unspecified; M79.7 Fibromyalgia; E83.42 Hypomagnesemia; Z79.899 Other long term (current) drug therapy; Z88.0 Allergy status to penicillin
CPT/HCPCS: 36415; 80053; 81003; 83690; 83735; 84100; 85025; 96365; 96375; 99284; J1885; J2405; J3475

== ENCOUNTER 2017-07-23 14:33 | Emergency (ER) | payer OTHER ==
[~2017-07-23] VITALS: Ht 167.6 cm; Wt 108.9 kg
[~2017-07-23 14:33] MED LIST changes: -AMIL5TAB9; +BACL10TA PO; +BUSP10TA3 PO; -CLON0.5T4 PO; -COLC0.6T67; -COLCHINE; -CYCL-10 PO; -CYCL-365 PO; -CYCLOBENZAPINE; -CYM30; -DULO60CA41; -FENT1PAT4; +FENT1PAT4 TD; -FENT1PAT6 TD; -FENT1PAT6 TP; -FERR236T; -HYDR-1189 PO; -HYDR-4100 PO; -IRON1CAP18; -LORA-259 PO; -LORA1TAB; -MAGN400T10 PO; -METR500T PO; -MUPI1OIN4; -NORCO5; -POTA20PA PO; -POTA20PA4; -POTA20TA83; -PRAV40TA PO; -PRAV40TA63; -PRO40 PO; -RANI-281 PO; -SPIR25TA PO; -TEMA30CA5 PO; -VANC125C10 PO
[2017-07-23 14:36] VITALS: BP_SYST 120
[2017-07-23] MEDS ORDERED: NACL 0.9% 1,000 ML IV ONE (14:52)
[2017-07-23] MEDS ORDERED: ONDANSETRON HCL 4 MG/2 ML VIAL IVP ONE (15:00)
[2017-07-23] MEDS ORDERED: DIPHENHYDRAMINE INJ 50 MG/ML VIAL IVP ONE ×2 (15:00→18:30)
[2017-07-23] MEDS ORDERED: HYDROmorphone 1 MG INJ. 1 MG/ML AMPUL IVP ONE ×2 (15:00→18:30)
[2017-07-23 15:22] LABS: BASOPHILS # (AUTO) 0.1 K/uL (0.0-0.2); BASOPHILS % (AUTO) 0.8 % (0.0-2.0); EOSINOPHILS % (AUTO) 0.5 % (0.0-4.0); HEMATOCRIT 42.9 % (36-48); HEMOGLOBIN 13.8 g/dL (12.0-16.0); LYMPHOCYTES # (AUTO) 1.5 K/uL (1.0-5.5); LYMPHOCYTES % (AUTO) 17.6 % (20.5-51.5); MEAN CORPUSCULAR HEMOGLOBIN 27 pg (27-31); MEAN CORPUSCULAR HGB CONC 32 % (32-36); MEAN CORPUSCULAR VOLUME 83 fL (79.0-98.0); MONOCYTES # (AUTO) 0.3 K/uL (0.0-1.0); MONOCYTES % (AUTO) 3.5 % (1.7-9.3); NEUTROPHILS # (AUTO) 6.7 K/uL (1.8-7.7); NEUTROPHILS % (AUTO) 77.6 % (40.0-70.0); PLATELET COUNT (AUTO) 426 K/uL (130-430); RED CELL DISTRIBUTION WIDTH 14.6 % (9.0-15.0); WHITE BLOOD COUNT (AUTO) 8.6 K/uL (4.8-10.8)
[2017-07-23 15:26] LABS: CALCIUM 9.3 mg/dL (8.4-11.0); CREATININE 1.02 mg/dL (0.55-1.30); POTASSIUM 3.2 mmol/L (3.5-5.1)
[2017-07-23 15:28] LABS: INR 1.1 (0.8-1.2); PROTHROMBIN TIME 11.4 SECS (9.5-12.5)
[2017-07-23 15:30] LABS: ALBUMIN 4.4 g/dL (3.4-4.8)
[2017-07-23] MEDS ORDERED: POTASSIUM CHLORIDE 20 MEQ TAB.PRT.SR PO ONE ×2 (16:00)
[2017-07-23] MEDS ORDERED: MAGNESIUM SULFATE 50 ML IV ONE ×2 (16:00)
[2017-07-23 16:18] LABS: BILIRUBIN,URINE 1+ (NEGATIVE); BLOOD, URINE NEGATIVE (NEGATIVE); CLARITY/URINE SL HAZY (CLEAR); COLOR,URINE YELLOW (YELLOW); GLUCOSE,URINE NEGATIVE (NEGATIVE); KETONES,URINE 1+ (NEGATIVE); LEUKOCYTE ESTERASE ,URINE NEGATIVE (NEGATIVE); NITRITE, URINE NEGATIVE (NEGATIVE); PH,URINE 7.5 (5.0-8.0); PROTEIN URINE NEGATIVE (NEGATIVE); UROBILINOGEN,URINE 0.2 (0.2-1.0)
[2017-07-23 16:38] LABS: BACTERIA,URINE MODERATE /HPF (None Seen); MUCUS,URINE 3+ /LPF (None Seen); RBC,URINE 0-3 /HPF (0-3); WBC,URINE 0-3 /HPF (0-3)
[2017-07-23 19:30] LABS: CREATININE 0.91 mg/dL (0.55-1.30); POTASSIUM 3.7 mmol/L (3.5-5.1)
[2017-07-23 19:58] VITALS: BP_SYST 126
== END 2017-07-23 19:58 | disposition home or self-care (01) ==
LOC: SED 14:33
DX: E83.42 Hypomagnesemia (principal); E87.6 Hypokalemia; E26.81 Bartter's syndrome; I10 Essential (primary) hypertension; J44.9 Chronic obstructive pulmonary disease, unspecified; F41.9 Anxiety disorder, unspecified; Z88.0 Allergy status to penicillin; Z91.018 Allergy to other foods; Z91.048 Other nonmedicinal substance allergy status; Z90.710 Acquired absence of both cervix and uterus
CPT/HCPCS: 36415; 74176; 80048; 80053; 81000; 83690; 83735; 84703; 85025; 85610; 85730; 87086; 96365; 96366; 96375; 96376; 99285; J1170; J1200; J2405; J3475; J7030

== ENCOUNTER 2017-07-24 14:58 | Emergency (ER) | payer OTHER ==
[~2017-07-24] VITALS: Ht 167.6 cm; Wt 108.9 kg
[2017-07-24 15:20] VITALS: BP_SYST 112
[2017-07-24 16:04] LABS: BASOPHILS # (AUTO) 0.1 K/uL (0.0-0.2); BASOPHILS % (AUTO) 1.5 % (0.0-2.0); EOSINOPHILS # (AUTO) 0.1 K/uL (0.0-0.4); EOSINOPHILS % (AUTO) 1.3 % (0.0-4.0); HEMATOCRIT 37.7 % (36-48); HEMOGLOBIN 12.3 g/dL (12.0-16.0); LYMPHOCYTES # (AUTO) 2.1 K/uL (1.0-5.5); LYMPHOCYTES % (AUTO) 28.9 % (20.5-51.5); MEAN CORPUSCULAR HEMOGLOBIN 27 pg (27-31); MEAN CORPUSCULAR HGB CONC 33 % (32-36); MEAN CORPUSCULAR VOLUME 83 fL (79.0-98.0); MONOCYTES # (AUTO) 0.5 K/uL (0.0-1.0); MONOCYTES % (AUTO) 6.5 % (1.7-9.3); NEUTROPHILS # (AUTO) 4.5 K/uL (1.8-7.7); NEUTROPHILS % (AUTO) 61.8 % (40.0-70.0); RED BLOOD CELL COUNT(AUTO) 4.57 MIL/uL (4.2-6.2); RED CELL DISTRIBUTION WIDTH 14.6 % (9.0-15.0); WHITE BLOOD COUNT (AUTO) 7.3 K/uL (4.8-10.8)
[2017-07-24 16:07] LABS: PLATELET COUNT (AUTO) 415 K/uL (130-430)
[2017-07-24 16:17] LABS: CREATININE 1.11 mg/dL (0.55-1.30); POTASSIUM 3.9 mmol/L (3.5-5.1)
[2017-07-24 16:21] LABS: TOTAL BILIRUBIN 0.7 mg/dL (0.0-1.0)
[2017-07-24] MEDS ORDERED: DIPHENHYDRAMINE INJ 50 MG/ML VIAL IVP ONE ×2 (16:45→18:45)
[2017-07-24] MEDS ORDERED: MORPHINE 4 MG/ML INJ. SYRINGE IVP ONE (16:45)
[2017-07-24] MEDS ORDERED: MAGNESIUM SULFATE 50 ML IV ONE (17:00)
[2017-07-24 19:03] VITALS: BP_SYST 116
== END 2017-07-24 19:03 | disposition home or self-care (01) ==
LOC: SED 14:58
DX: E26.81 Bartter's syndrome (principal); M79.605 Pain in left leg; M79.604 Pain in right leg; M10.9 Gout, unspecified; F41.9 Anxiety disorder, unspecified; J44.9 Chronic obstructive pulmonary disease, unspecified; I10 Essential (primary) hypertension; Z88.0 Allergy status to penicillin; Z91.018 Allergy to other foods; Z79.899 Other long term (current) drug therapy
CPT/HCPCS: 36415; 80053; 83735; 85025; 96374; 96375; 96376; 99284; J1200; J2270; J3475; J7040

== ENCOUNTER 2017-07-28 13:49 | Emergency (ER) | payer OTHER ==
[~2017-07-28] VITALS: Ht 162.6 cm; Wt 104.3 kg
[2017-07-28 13:54] VITALS: BP_SYST 113
[2017-07-28 14:23] LABS: BILIRUBIN,URINE NEGATIVE (NEGATIVE); BLOOD, URINE NEGATIVE (NEGATIVE); CLARITY/URINE SL HAZY (CLEAR); COLOR,URINE YELLOW (YELLOW); GLUCOSE,URINE NEGATIVE (NEGATIVE); KETONES,URINE NEGATIVE (NEGATIVE); LEUKOCYTE ESTERASE ,URINE NEGATIVE (NEGATIVE); NITRITE, URINE NEGATIVE (NEGATIVE); PROTEIN URINE NEGATIVE (NEGATIVE); UROBILINOGEN,URINE 0.2 (0.2-1.0)
[2017-07-28 14:27] LABS: BASOPHILS # (AUTO) 0.1 K/uL (0.0-0.2); EOSINOPHILS # (AUTO) 0.2 K/uL (0.0-0.4); EOSINOPHILS % (AUTO) 1.6 % (0.0-4.0); HEMATOCRIT 39.1 % (36-48); HEMOGLOBIN 12.7 g/dL (12.0-16.0); LYMPHOCYTES # (AUTO) 2.6 K/uL (1.0-5.5); LYMPHOCYTES % (AUTO) 27.9 % (20.5-51.5); MEAN CORPUSCULAR HEMOGLOBIN 27 pg (27-31); MEAN CORPUSCULAR HGB CONC 32 % (32-36); MEAN CORPUSCULAR VOLUME 83 fL (79.0-98.0); MONOCYTES # (AUTO) 0.4 K/uL (0.0-1.0); NEUTROPHILS # (AUTO) 6.1 K/uL (1.8-7.7); NEUTROPHILS % (AUTO) 65.5 % (40.0-70.0); PLATELET COUNT (AUTO) 416 K/uL (130-430); RED BLOOD CELL COUNT(AUTO) 4.69 MIL/uL (4.2-6.2); RED CELL DISTRIBUTION WIDTH 14.9 % (9.0-15.0); WHITE BLOOD COUNT (AUTO) 9.4 K/uL (4.8-10.8)
[2017-07-28 14:32] LABS: CALCIUM 9.1 mg/dL (8.4-11.0); CREATININE 1.12 mg/dL (0.55-1.30); POTASSIUM 3.2 mmol/L (3.5-5.1)
[2017-07-28 14:36] LABS: ALBUMIN 4.1 g/dL (3.4-4.8); TOTAL BILIRUBIN 0.5 mg/dL (0.0-1.0)
--- NOTE | 2017-07-28 15:15 | NUR ---
BROUGHT BACK TO BED #2 AND REPORT GIVEN TO SERAFIN/JOHN
--- NOTE | 2017-07-28 15:25 | NUR ---
PT PRESENTS TO ED C/O LEG AND ABD PAIN.PT H/O LOW MAG AND K+. PT RECEIVED BLOOD DRAW PRIOR TO ED BED PLACEMENT.
[2017-07-28] MEDS ORDERED: MAGNESIUM SULFATE 1 GM/2 ML VIAL IVP ONE ×2 (15:30→16:00)
--- NOTE | 2017-07-28 15:30 | NUR ---
ER at bedside examining patient.
[2017-07-28] MEDS ORDERED: MAGNESIUM SULFATE 4 GM in D5W 250 ML IV ONE (15:45)
[2017-07-28] MEDS ORDERED: HYDROmorphone 1 MG INJ. 1 MG/ML AMPUL IVP ONE (15:45)
[2017-07-28] MEDS ORDERED: POTASSIUM CHLORIDE 20 MEQ TAB.PRT.SR PO ONE (15:45)
[2017-07-28] MEDS ORDERED: DIPHENHYDRAMINE INJ 50 MG/ML VIAL IVP ONE (15:45)
--- NOTE | 2017-07-28 16:00 | NUR ---
PT MEDICATED TOLERATING WELL.
--- NOTE | 2017-07-28 17:00 | NUR ---
PT SLEEPING EASILY AROUSABLE.
[2017-07-28 18:00] VITALS: BP_SYST 118
--- NOTE | 2017-07-28 18:05 | NUR ---
Patient given written and verbal discharge instructions and verbalizes understanding. ER MD discussed with patient the results and treatment provided. Patient in stable condition. ID arm band removed. IV catheter removed intact and dressing applied, no active bleeding. no Rx given. Patient educated on pain management and to follow up with PMD. Pain Scale 2 Opportunity for questions provided and answered.
== END 2017-07-28 18:00 | disposition home or self-care (01) ==
LOC: SED 13:49
DX: E83.42 Hypomagnesemia (principal); E87.6 Hypokalemia; E26.81 Bartter's syndrome; J44.9 Chronic obstructive pulmonary disease, unspecified; M10.9 Gout, unspecified; F41.9 Anxiety disorder, unspecified; M79.7 Fibromyalgia; I10 Essential (primary) hypertension; Z79.899 Other long term (current) drug therapy; Z88.0 Allergy status to penicillin; Z91.018 Allergy to other foods
CPT/HCPCS: 36415; 80053; 81003; 83735; 85025; 96365; 96366; 96375; 99285; J1170; J1200; J3475; J7030

== ENCOUNTER 2017-08-01 17:05 | Emergency (ER) | payer OTHER ==
[~2017-08-01] VITALS: Ht 162.6 cm; Wt 104.3 kg
[2017-08-01 17:11] VITALS: BP_SYST 113
[2017-08-01 18:29] LABS: BASOPHILS # (AUTO) 0.1 K/uL (0.0-0.2); BASOPHILS % (AUTO) 0.9 % (0.0-2.0); EOSINOPHILS # (AUTO) 0.2 K/uL (0.0-0.4); EOSINOPHILS % (AUTO) 1.3 % (0.0-4.0); HEMATOCRIT 40.7 % (36-48); HEMOGLOBIN 13.1 g/dL (12.0-16.0); LYMPHOCYTES # (AUTO) 2.9 K/uL (1.0-5.5); LYMPHOCYTES % (AUTO) 21.9 % (20.5-51.5); MEAN CORPUSCULAR HEMOGLOBIN 27 pg (27-31); MEAN CORPUSCULAR HGB CONC 32 % (32-36); MEAN CORPUSCULAR VOLUME 83 fL (79.0-98.0); MONOCYTES # (AUTO) 0.5 K/uL (0.0-1.0); MONOCYTES % (AUTO) 3.5 % (1.7-9.3); NEUTROPHILS # (AUTO) 9.6 K/uL (1.8-7.7); NEUTROPHILS % (AUTO) 72.4 % (40.0-70.0); PLATELET COUNT (AUTO) 425 K/uL (130-430); RED BLOOD CELL COUNT(AUTO) 4.91 MIL/uL (4.2-6.2); RED CELL DISTRIBUTION WIDTH 14.8 % (9.0-15.0); WHITE BLOOD COUNT (AUTO) 13.3 K/uL (4.8-10.8)
[2017-08-01] MEDS ORDERED: KETOROLAC TROMETHAMINE 30 MG VIAL IVP ONE (18:30)
[2017-08-01] MEDS ORDERED: METOCLOPRAMIDE HCL 10 MG/2 ML VIAL IVP ONE (18:30)
[2017-08-01] MEDS ORDERED: NACL 0.9% 1,000 ML IV ONE (18:30)
[2017-08-01 18:32] LABS: CREATININE 1.08 mg/dL (0.55-1.30); POTASSIUM 3.7 mmol/L (3.5-5.1)
[2017-08-01 18:36] LABS: ALBUMIN 4.1 g/dL (3.4-4.8); PHOSPHORUS 2.8 mg/dL (2.7-4.5); TOTAL BILIRUBIN 0.4 mg/dL (0.0-1.0)
[2017-08-01] MEDS ORDERED: MAGNESIUM SULFATE 50 ML IV ONE (19:00)
[2017-08-01] MEDS ORDERED: HYDROmorphone 1 MG INJ. 1 MG/ML AMPUL IVP ONE (20:15)
[2017-08-01] MEDS ORDERED: DIPHENHYDRAMINE INJ 50 MG/ML VIAL IVP ONE (20:30)
[2017-08-01 21:10] VITALS: BP_SYST 110
== END 2017-08-01 21:10 | disposition home or self-care (01) ==
LOC: SED 17:05
DX: A08.4 Viral intestinal infection, unspecified (principal); E83.42 Hypomagnesemia; J44.9 Chronic obstructive pulmonary disease, unspecified; I10 Essential (primary) hypertension; F41.9 Anxiety disorder, unspecified; M10.9 Gout, unspecified; Z90.710 Acquired absence of both cervix and uterus; Z88.0 Allergy status to penicillin; Z91.018 Allergy to other foods; Z79.899 Other long term (current) drug therapy
CPT/HCPCS: 36415; 74000; 80053; 83690; 83735; 84100; 85025; 96361; 96365; 96375; 99285; J1170; J1200; J1885; J2765; J3475; J7030

== ENCOUNTER 2017-08-14 12:28 | Emergency (ER) | payer OTHER ==
[~2017-08-14] VITALS: Ht 162.6 cm; Wt 108.9 kg
[2017-08-14 12:35] VITALS: BP_SYST 124
--- NOTE | 2017-08-14 12:37 | NUR ---
ER at bedside examining patient.
--- NOTE | 2017-08-14 12:38 | NUR ---
Pt report received from ABHILASH Larson. Pt presents to ER with c/o BLE pain. Sent from PMD to have magnesium levels checked. Pt denies c/o C/P, SOB, recent injury or trauma.
--- NOTE | 2017-08-14 12:38 | NUR ---
Ambulatory to bed 4, placed in gown for evaluation
[2017-08-14] MEDS ORDERED: KETOROLAC TROMETHAMINE 30 MG VIAL IVP ONE (12:45)
[2017-08-14] MEDS ORDERED: NACL 0.9% 1,000 ML IV ONE (12:45)
[2017-08-14] MEDS ORDERED: DIPHENHYDRAMINE INJ 50 MG/ML VIAL IVP ONE (13:00)
[2017-08-14] MEDS ORDERED: HYDROmorphone 1 MG INJ. 1 MG/ML AMPUL IVP ONE ×2 (13:00→16:00)
[2017-08-14 13:11] LABS: CALCIUM 9.5 mg/dL (8.4-11.0); CREATININE 0.86 mg/dL (0.55-1.30); POTASSIUM 3.9 mmol/L (3.5-5.1)
[2017-08-14] MEDS ORDERED: MAGNESIUM SULFATE 4 GM in D5W 250 ML IV ONE (13:30)
[2017-08-14] MEDS ORDERED: MAGNESIUM SULFATE 1 GM/2 ML VIAL ONE (13:41)
--- NOTE | 2017-08-14 14:05 | NUR ---
MAGNESIUM LEVEL, 1.2, MAGNESIUM SULFATE RIDER HUNG ORDERED.
--- NOTE | 2017-08-14 16:28 | NUR ---
PT COMPLAINED OF PAIN TO BOTH THIGHS, 8/10 SCALE, MEDICATED WITH DILAUDID 0.5MG IVP.
--- NOTE | 2017-08-14 16:56 | NUR ---
PAIN RELIEVED BY DILAUDIDMEDS. 3/10 SCALE.
[2017-08-14 17:19] VITALS: BP_SYST 106
--- NOTE | 2017-08-14 17:19 | NUR ---
Patient given written and verbal discharge instructions and verbalizes understanding. ER MD discussed with patient the results and treatment provided. Patient in stable condition. ID arm band removed. No Rx given. Patient educated on pain management and to follow up with PMD. Pain Scale 2/10. Opportunity for questions provided and answered.
== END 2017-08-14 17:19 | disposition home or self-care (01) ==
LOC: SED 12:28
DX: E83.42 Hypomagnesemia (principal); E26.81 Bartter's syndrome; J44.9 Chronic obstructive pulmonary disease, unspecified; I10 Essential (primary) hypertension; M10.9 Gout, unspecified; F41.9 Anxiety disorder, unspecified; M79.7 Fibromyalgia; Z88.0 Allergy status to penicillin; Z79.899 Other long term (current) drug therapy; Z91.018 Allergy to other foods
CPT/HCPCS: 36415; 80048; 83735; 96361; 96365; 96366; 96375; 96376; 99285; J1170; J1200; J1885; J3475; J7030; J7060; 99284

== ENCOUNTER 2017-08-21 15:43 | Emergency (ER) | payer OTHER ==
[~2017-08-21] VITALS: Ht 162.6 cm; Wt 108.9 kg
[2017-08-21 16:11] VITALS: BP_SYST 148
[2017-08-21 16:56] LABS: BASOPHILS # (AUTO) 0.1 K/uL (0.0-0.2); BASOPHILS % (AUTO) 0.8 % (0.0-2.0); EOSINOPHILS # (AUTO) 0.1 K/uL (0.0-0.4); HEMATOCRIT 40.3 % (36-48); LYMPHOCYTES # (AUTO) 2.7 K/uL (1.0-5.5); LYMPHOCYTES % (AUTO) 26.3 % (20.5-51.5); MEAN CORPUSCULAR HEMOGLOBIN 26 pg (27-31); MEAN CORPUSCULAR HGB CONC 32 % (32-36); MEAN CORPUSCULAR VOLUME 81 fL (79.0-98.0); MONOCYTES # (AUTO) 0.4 K/uL (0.0-1.0); MONOCYTES % (AUTO) 3.8 % (1.7-9.3); NEUTROPHILS % (AUTO) 68.1 % (40.0-70.0); PLATELET COUNT (AUTO) 474 K/uL (130-430); RED BLOOD CELL COUNT(AUTO) 4.97 MIL/uL (4.2-6.2); RED CELL DISTRIBUTION WIDTH 14.8 % (9.0-15.0); WHITE BLOOD COUNT (AUTO) 10.3 K/uL (4.8-10.8)
[2017-08-21 17:01] LABS: BILIRUBIN,URINE 1+ (NEGATIVE); BLOOD, URINE NEGATIVE (NEGATIVE); CLARITY/URINE SL HAZY (CLEAR); COLOR,URINE AMBER (YELLOW); GLUCOSE,URINE NEGATIVE (NEGATIVE); KETONES,URINE 1+ (NEGATIVE); LEUKOCYTE ESTERASE ,URINE 1+ (NEGATIVE); NITRITE, URINE NEGATIVE (NEGATIVE); PROTEIN URINE NEGATIVE (NEGATIVE); UROBILINOGEN,URINE 0.2 (0.2-1.0)
[2017-08-21 17:11] LABS: CREATININE 0.93 mg/dL (0.55-1.30); POTASSIUM 4.1 mmol/L (3.5-5.1)
[2017-08-21 17:15] LABS: ALBUMIN 4.4 g/dL (3.4-4.8); TOTAL BILIRUBIN 0.8 mg/dL (0.0-1.0)
[2017-08-21 17:18] LABS: BACTERIA,URINE MODERATE /HPF (None Seen); RBC,URINE 0-3 /HPF (0-3); URINE AMORPHOUS PHOSPHATES 2+ /HPF (None Seen)
[2017-08-21] MEDS ORDERED: MAGNESIUM SULFATE 4 GM in D5W 250 ML IV ONE (18:00)
[2017-08-21] MEDS ORDERED: cefTRIAXone 1 GM IVPB PREMIX 50 ML IV ONE (18:30)
[2017-08-21] MEDS ORDERED: DIPHENHYDRAMINE INJ 50 MG/ML VIAL IVP ONE ×2 (18:30→20:00)
[2017-08-21] MEDS ORDERED: MORPHINE 4 MG/ML INJ. SYRINGE IVP ONE ×2 (18:30→20:00)
[2017-08-21] MEDS ORDERED: MAGNESIUM SULFATE 1 GM/2 ML VIAL ONE ×2 (18:37→19:39)
[2017-08-21 21:32] VITALS: BP_SYST 135
== END 2017-08-21 21:32 | disposition home or self-care (01) ==
LOC: SED 15:43
DX: R53.1 Weakness (principal); J44.9 Chronic obstructive pulmonary disease, unspecified; I10 Essential (primary) hypertension; M10.9 Gout, unspecified; F41.9 Anxiety disorder, unspecified; M79.7 Fibromyalgia; Z90.710 Acquired absence of both cervix and uterus; Z98.84 Bariatric surgery status; Z88.0 Allergy status to penicillin; Z91.018 Allergy to other foods; Z79.899 Other long term (current) drug therapy
CPT/HCPCS: 36415; 80053; 81000; 83735; 85025; 87086; 96365; 96366; 96368; 96375; 96376; 99285; J0696; J1200; J2270; J3475; J7060

== ENCOUNTER 2017-08-24 22:40 | Emergency (ER) | payer OTHER ==
[~2017-08-24] VITALS: Ht 162.6 cm; Wt 104.3 kg
[2017-08-24 22:45] VITALS: BP_SYST 96
[2017-08-25] MEDS ORDERED: NACL 0.9% 1,000 ML IV ONE (00:30)
[2017-08-25] MEDS ORDERED: MAGNESIUM SULFATE 50 ML IV ONE (01:45)
[2017-08-25] MEDS ORDERED: DIPHENHYDRAMINE INJ 50 MG/ML VIAL IVP ONE (02:00)
[2017-08-25] MEDS ORDERED: HYDROmorphone 1 MG INJ. 1 MG/ML AMPUL IVP ONE (02:00)
[2017-08-25 02:03] LABS: BASOPHILS # (AUTO) 0.1 K/uL (0.0-0.2); BASOPHILS % (AUTO) 0.8 % (0.0-2.0); EOSINOPHILS # (AUTO) 0.3 K/uL (0.0-0.4); EOSINOPHILS % (AUTO) 2.3 % (0.0-4.0); HEMATOCRIT 34.5 % (36-48); HEMOGLOBIN 11.2 g/dL (12.0-16.0); LYMPHOCYTES # (AUTO) 3.9 K/uL (1.0-5.5); LYMPHOCYTES % (AUTO) 35.4 % (20.5-51.5); MEAN CORPUSCULAR HEMOGLOBIN 26 pg (27-31); MEAN CORPUSCULAR HGB CONC 33 % (32-36); MEAN CORPUSCULAR VOLUME 81 fL (79.0-98.0); MONOCYTES # (AUTO) 0.7 K/uL (0.0-1.0); MONOCYTES % (AUTO) 6.5 % (1.7-9.3); NEUTROPHILS # (AUTO) 5.9 K/uL (1.8-7.7); PLATELET COUNT (AUTO) 420 K/uL (130-430); RED BLOOD CELL COUNT(AUTO) 4.25 MIL/uL (4.2-6.2); RED CELL DISTRIBUTION WIDTH 14.7 % (9.0-15.0); WHITE BLOOD COUNT (AUTO) 10.9 K/uL (4.8-10.8)
[2017-08-25 02:16] LABS: CALCIUM 8.8 mg/dL (8.4-11.0); POTASSIUM 4.9 mmol/L (3.5-5.1)
[2017-08-25 02:18] LABS: ALBUMIN 3.8 g/dL (3.4-4.8); PHOSPHORUS 3.3 mg/dL (2.7-4.5); TOTAL BILIRUBIN 0.3 mg/dL (0.0-1.0)
[2017-08-25 03:44] VITALS: BP_SYST 94
== END 2017-08-25 03:44 | disposition home or self-care (01) ==
LOC: SED 22:40
DX: M62.838 Other muscle spasm (principal); J44.9 Chronic obstructive pulmonary disease, unspecified; I10 Essential (primary) hypertension; M10.9 Gout, unspecified; F41.9 Anxiety disorder, unspecified; M79.7 Fibromyalgia; Z88.0 Allergy status to penicillin; Z91.018 Allergy to other foods
CPT/HCPCS: 36415; 80053; 83735; 84100; 85025; 96365; 96375; 99284; J1170; J1200; J3475; J7030

== ENCOUNTER 2017-09-02 20:58 | Emergency (ER) | payer OTHER ==
[~2017-09-02] VITALS: Ht 162.6 cm; Wt 104.3 kg
[2017-09-02 21:37] VITALS: BP_SYST 132
[2017-09-02] MEDS ORDERED: ONDANSETRON HCL 4 MG/2 ML VIAL IVP ONE (22:45)
[2017-09-02] MEDS ORDERED: MORPHINE 4 MG/ML INJ. SYRINGE IVP ONE (22:45)
[2017-09-02] MEDS ORDERED: DIPHENHYDRAMINE INJ 50 MG/ML VIAL IVP ONE (22:45)
[2017-09-02] MEDS ORDERED: MORPHINE 2 MG/ML INJ. SYRINGE ONE (23:11)
[2017-09-02 23:16] LABS: CALCIUM 8.8 mg/dL (8.4-11.0); CREATININE 1.06 mg/dL (0.55-1.30); POTASSIUM 3.7 mmol/L (3.5-5.1)
[2017-09-03 01:09] VITALS: BP_SYST 131
== END 2017-09-03 01:09 | disposition home or self-care (01) ==
LOC: SED 20:58
DX: E83.42 Hypomagnesemia (principal); G89.29 Other chronic pain; M25.561 Pain in right knee; E26.81 Bartter's syndrome; M10.9 Gout, unspecified; F41.9 Anxiety disorder, unspecified; J44.9 Chronic obstructive pulmonary disease, unspecified; M79.7 Fibromyalgia; I10 Essential (primary) hypertension; Z88.0 Allergy status to penicillin; Z91.018 Allergy to other foods; Z79.899 Other long term (current) drug therapy
CPT/HCPCS: 36415; 80048; 83735; 96374; 96375; 99284; J1200; J2270; J2405

== ENCOUNTER 2017-09-08 13:24 | Emergency (ER) | payer OTHER ==
[~2017-09-08] VITALS: Ht 162.6 cm; Wt 104.3 kg
[2017-09-08 13:56] VITALS: BP_SYST 119
[2017-09-08 14:01] LABS: BASOPHILS # (AUTO) 0.1 K/uL (0.0-0.2); BASOPHILS % (AUTO) 0.5 % (0.0-2.0); EOSINOPHILS # (AUTO) 0.1 K/uL (0.0-0.4); EOSINOPHILS % (AUTO) 1.1 % (0.0-4.0); HEMATOCRIT 41.4 % (36-48); HEMOGLOBIN 12.7 g/dL (12.0-16.0); LYMPHOCYTES # (AUTO) 1.9 K/uL (1.0-5.5); LYMPHOCYTES % (AUTO) 18.7 % (20.5-51.5); MEAN CORPUSCULAR HEMOGLOBIN 25 pg (27-31); MEAN CORPUSCULAR HGB CONC 31 % (32-36); MEAN CORPUSCULAR VOLUME 82 fL (79.0-98.0); MONOCYTES # (AUTO) 0.3 K/uL (0.0-1.0); MONOCYTES % (AUTO) 2.5 % (1.7-9.3); NEUTROPHILS # (AUTO) 7.9 K/uL (1.8-7.7); NEUTROPHILS % (AUTO) 77.2 % (40.0-70.0); PLATELET COUNT (AUTO) 496 K/uL (130-430); RED BLOOD CELL COUNT(AUTO) 5.07 MIL/uL (4.2-6.2); RED CELL DISTRIBUTION WIDTH 14.2 % (9.0-15.0); WHITE BLOOD COUNT (AUTO) 10.3 K/uL (4.8-10.8)
[2017-09-08 14:13] LABS: CALCIUM 10.2 mg/dL (8.4-11.0); CREATININE 0.98 mg/dL (0.55-1.30); POTASSIUM 3.8 mmol/L (3.5-5.1)
[2017-09-08 14:17] LABS: ALBUMIN 4.1 g/dL (3.4-4.8); TOTAL BILIRUBIN 0.7 mg/dL (0.0-1.0)
[2017-09-08] MEDS ORDERED: MAGNESIUM SULFATE IN WATER 100 ML IV ONE (16:45)
[2017-09-08] MEDS ORDERED: MAGNESIUM SULFATE 100 ML IV ONE (16:51)
[2017-09-08] MEDS ORDERED: KETOROLAC TROMETHAMINE 30 MG VIAL IVP ONE (17:30)
[2017-09-08] MEDS ORDERED: DIPHENHYDRAMINE INJ 50 MG/ML VIAL IVP ONE (17:30)
[2017-09-08 17:46] LABS: BILIRUBIN,URINE NEGATIVE (NEGATIVE); BLOOD, URINE NEGATIVE (NEGATIVE); CLARITY/URINE SL HAZY (CLEAR); COLOR,URINE YELLOW (YELLOW); GLUCOSE,URINE NEGATIVE (NEGATIVE); KETONES,URINE NEGATIVE (NEGATIVE); LEUKOCYTE ESTERASE ,URINE NEGATIVE (NEGATIVE); NITRITE, URINE NEGATIVE (NEGATIVE); PH,URINE 7.5 (5.0-8.0); PROTEIN URINE NEGATIVE (NEGATIVE); UROBILINOGEN,URINE 0.2 (0.2-1.0)
[2017-09-08 18:27] VITALS: BP_SYST 118
== END 2017-09-08 18:27 | disposition home or self-care (01) ==
LOC: SED 13:24
DX: J06.9 Acute upper respiratory infection, unspecified (principal); N39.0 Urinary tract infection, site not specified; E83.42 Hypomagnesemia; J44.9 Chronic obstructive pulmonary disease, unspecified; I10 Essential (primary) hypertension; F41.9 Anxiety disorder, unspecified
CPT/HCPCS: 36415; 80053; 81003; 83735; 85025; 86710; 87086; 96365; 96375; 99284; J1200; J1885; J3475 ×2; J7030

== ENCOUNTER 2017-09-19 20:29 | Emergency (ER) | payer OTHER ==
[~2017-09-19] VITALS: Ht 165.1 cm; Wt 96.2 kg
[2017-09-19 20:36] VITALS: BP_SYST 149
--- NOTE | 2017-09-19 20:36 | NUR ---
Patient to ER bed 4 to gown for evaluation. Side rails up. Report given to ABHILASH WICK.
--- NOTE | 2017-09-19 20:36 | NUR ---
Pt a/o x 4, c/o left knee pain, throbbing, 9/10 ps started 1600 hrs. Pt denied injury /trauma, took morphine PO 15 mg at home for pain. Pt clamed her pain started yesterday and she was seen in an ER, was given decadron and toradol shot w/o relief of symptoms. Pt with normal resp effort, no sob, lungs CTA. Pt made comfortable in bed, hooked to monitor.
--- NOTE | 2017-09-19 20:38 | NUR ---
ER at bedside examining patient.
--- NOTE | 2017-09-19 21:06 | NUR ---
# 20 gauge angiocath placed to R AC. Use of asceptic technique. Opsite placed over site. Blood return noted. Blood for lab drawn from site. Flushed with 10 cc of normal saline. No evidence of infiltration noted. Patient tolerated well.
[2017-09-19] MEDS ORDERED: MORPHINE SULFATE 10 MG/ML VIAL ONE (21:11)
[2017-09-19 21:15] LABS: HEMOGLOBIN 11.9 g/dL (12.0-16.0); MEAN CORPUSCULAR HEMOGLOBIN 26 pg (27-31); MEAN CORPUSCULAR HGB CONC 33 % (32-36); MEAN CORPUSCULAR VOLUME 80 fL (79.0-98.0); PLATELET COUNT (AUTO) 478 K/uL (130-430); RED CELL DISTRIBUTION WIDTH 14.2 % (9.0-15.0); WHITE BLOOD COUNT (AUTO) 18.8 K/uL (4.8-10.8)
[2017-09-19] MEDS: NACL 0.9% 1,000 ML IV ONE (21:19)
[2017-09-19] MEDS: MORPHINE 4 MG/ML INJ. SYRINGE IVP ONE ×2 (21:20→23:47)
[2017-09-19] MEDS: DIPHENHYDRAMINE HCL 50 MG CAPSULE PO ONE (21:20)
[2017-09-19 21:27] LABS: CALCIUM 10.1 mg/dL (8.4-11.0); CREATININE 1.16 mg/dL (0.55-1.30); POTASSIUM 3.2 mmol/L (3.5-5.1)
[2017-09-19 21:30] LABS: BAND % (MANUAL) 3 % (0-6); BASOPHILS % (MANUAL) 0 % (0-2); EOSINOPHILS % (MANUAL) 0 % (0-7); LYMPHOCYTES % (MANUAL) 4 % (20-46); MONOCYTES % (MANUAL) 3 % (0-11)
[2017-09-19 21:31] LABS: ALBUMIN 4.1 g/dL (3.4-4.8); TOTAL BILIRUBIN 0.4 mg/dL (0.0-1.0)
[2017-09-19 21:37] LABS: PROTHROMBIN TIME 10.1 SECS (9.5-12.5)
[2017-09-19] MEDS: DEXAMETHASONE SOD PHOSPHATE 10 MG/ML VIAL IVP ONE (22:10)
[2017-09-19] MEDS: HYDROmorphone 1 MG INJ. 1 MG/ML AMPUL IVP ONE (22:40)
--- NOTE | 2017-09-19 22:41 | NUR ---
Unable to scan Dilaudid 1mg due to non-operable scanner and computer. Verified pt's name, and allergies prior to medication administration
[2017-09-19] MEDS ORDERED: MAGNESIUM SULFATE 1 GM/2 ML VIAL ONE (22:50)
[2017-09-19] MEDS: MAGNESIUM SULFATE 1 GM in NS 100 ML IV ONE (22:58)
[2017-09-19] MEDS ORDERED: MORPHINE 2 MG/ML INJ. SYRINGE ONE (23:41)
--- NOTE | 2017-09-19 23:45 | NUR ---
Unable to scan Morphine 4 mg (2mg/1ml) due to non-operable scanner and computer. Verified pt's name, and allergies prior to medication administration
[2017-09-20 00:17] VITALS: BP_SYST 137
== END 2017-09-20 00:17 | disposition home or self-care (01) ==
LOC: SED 20:29
DX: G89.29 Other chronic pain (principal); M25.562 Pain in left knee; J44.9 Chronic obstructive pulmonary disease, unspecified; I10 Essential (primary) hypertension; F41.9 Anxiety disorder, unspecified; M10.9 Gout, unspecified; E26.81 Bartter's syndrome; Z91.018 Allergy to other foods; Z79.899 Other long term (current) drug therapy
CPT/HCPCS: 36415; 80053; 82150; 83690; 83735; 85007; 85027; 85610; 85730; 96361; 96365; 96375; 96376; 99284; J1100; J1170; J2270 ×2; J3475; J7030; Q0163; J7060

== ENCOUNTER 2017-09-22 16:35 | Emergency (ER) | payer OTHER ==
[~2017-09-22] VITALS: Ht 162.6 cm; Wt 104.3 kg
[2017-09-22 16:37] VITALS: BP_SYST 116
--- NOTE | 2017-09-22 16:44 | NUR ---
Patient to ER bed 8 to gown for evaluation. Side rails up. Report given to Wendie HUNG.
--- NOTE | 2017-09-22 16:49 | NUR ---
ER Dr. Worthy at bedside examining patient.
--- NOTE | 2017-09-22 17:00 | NUR ---
Pt brought by self ,A&Ox4, pt c/o N/V, leg cramping and back pain, pt concern about magnesium level, skin pink and warm, cap refill<3, respirations even and unlabored, follows commands.
[2017-09-22 17:19] LABS: CALCIUM 9.6 mg/dL (8.4-11.0); CREATININE 0.94 mg/dL (0.55-1.30); POTASSIUM 3.4 mmol/L (3.5-5.1)
[2017-09-22] MEDS: DIPHENHYDRAMINE INJ 50 MG/ML VIAL IVP ONE (17:19)
[2017-09-22] MEDS: PROCHLORPERAZINE EDISYLATE 10 MG/2 ML VIAL IVP ONE (17:20)
[2017-09-22] MEDS: KETOROLAC TROMETHAMINE 30 MG VIAL IVP ONE (17:20)
[2017-09-22] MEDS: NACL 0.9% 1,000 ML IV ONE (17:21)
[2017-09-22] MEDS ORDERED: MAGNESIUM SULFATE 1 GM/2 ML VIAL ONE (17:34)
[2017-09-22] MEDS: MAGNESIUM SULFATE 4 GM in D5W 250 ML IV ONE (18:22)
--- NOTE | 2017-09-22 18:25 | NUR ---
Pt resting at this time, VSS,magnesium med obtained from pharmacy, well tolerated.
--- NOTE | 2017-09-22 19:10 | NUR ---
Report given to Gela HUNG, pt on stable condition.
--- NOTE | 2017-09-22 19:21 | NUR ---
Received patient from day shift RN. Magnesium IV is running, no adverse reactions noted. No signs of SOB or acute distress noted. Will continue to monitor.
[2017-09-22 20:05] VITALS: BP_SYST 133
--- NOTE | 2017-09-22 20:05 | NUR ---
Patient given written and verbal discharge instructions and verbalizes understanding. DENNIS BAEZA MD discussed with patient the results and treatment provided. Patient in stable condition. ID arm band removed. IV catheter removed intact and dressing applied, no active bleeding. Patient educated on pain management and to follow up with PMD. Pain Scale 0/10. Opportunity for questions provided and answered.
== END 2017-09-22 20:05 | disposition home or self-care (01) ==
LOC: SED 16:35
DX: E83.42 Hypomagnesemia (principal); J44.9 Chronic obstructive pulmonary disease, unspecified; I10 Essential (primary) hypertension; F41.9 Anxiety disorder, unspecified; M10.9 Gout, unspecified; M79.7 Fibromyalgia; Z88.0 Allergy status to penicillin; Z91.018 Allergy to other foods; Z79.899 Other long term (current) drug therapy
CPT/HCPCS: 36415; 80048; 83735; 96361; 96365; 96366; 96375; 99285; J0780; J1200; J1885; J3475; J7030

== ENCOUNTER 2017-09-27 19:08 | Emergency (ER) | payer OTHER ==
[~2017-09-27] VITALS: Ht 162.6 cm; Wt 104.3 kg
[2017-09-27 19:10] VITALS: BP_SYST 107
[2017-09-27 21:26] VITALS: BP_SYST 107
== END 2017-09-27 21:26 | disposition left against medical advice (07) ==
LOC: SED 19:08
DX: J06.9 Acute upper respiratory infection, unspecified (principal); F41.9 Anxiety disorder, unspecified; J44.9 Chronic obstructive pulmonary disease, unspecified; I10 Essential (primary) hypertension; M10.9 Gout, unspecified; Z53.20 Procedure and treatment not carried out because of patient's decision for unspecified reasons; Z90.710 Acquired absence of both cervix and uterus; Z79.899 Other long term (current) drug therapy; Z88.0 Allergy status to penicillin; Z91.018 Allergy to other foods
CPT/HCPCS: 36415; 86710; 99284

== ENCOUNTER 2017-10-16 15:34 | Emergency (ER) | payer OTHER ==
[~2017-10-16] VITALS: Ht 162.6 cm; Wt 104.3 kg
[2017-10-16 15:39] VITALS: BP_SYST 105
[2017-10-16] MEDS ORDERED: MAGNESIUM SULFATE 50 ML IV ONE (15:45)
[2017-10-16] MEDS ORDERED: NACL 0.9% 1,000 ML IV ONE (15:45)
[2017-10-16] MEDS ORDERED: MORPHINE 2 MG/ML INJ. SYRINGE IVP ONE (16:00)
[2017-10-16] MEDS ORDERED: ONDANSETRON HCL 4 MG/2 ML VIAL IVP ONE (16:00)
[2017-10-16 16:12] LABS: CALCIUM 9.5 mg/dL (8.4-11.0); POTASSIUM 3.6 mmol/L (3.5-5.1)
[2017-10-16 16:13] LABS: HEMOGLOBIN 12.5 g/dL (12.0-16.0); MONOCYTES # (AUTO) 0.5 K/uL (0.0-1.0)
[2017-10-16 16:16] LABS: BASOPHILS # (AUTO) 0.4 K/uL (0.0-0.2); EOSINOPHILS # (AUTO) 0.2 K/uL (0.0-0.4); HEMATOCRIT 38.7 % (36-48); LYMPHOCYTES # (AUTO) 3.4 K/uL (1.0-5.5); MEAN CORPUSCULAR HEMOGLOBIN 26 pg (27-31); MEAN CORPUSCULAR HGB CONC 32 % (32-36); MEAN CORPUSCULAR VOLUME 80 fL (79.0-98.0); NEUTROPHILS # (AUTO) 9.1 K/uL (1.8-7.7); RED BLOOD CELL COUNT(AUTO) 4.87 MIL/uL (4.2-6.2); RED CELL DISTRIBUTION WIDTH 15.2 % (9.0-15.0); WHITE BLOOD COUNT (AUTO) 13.5 K/uL (4.8-10.8)
[2017-10-16 16:17] LABS: BASOPHILS % (AUTO) 2.2 % (0.0-2.0); EOSINOPHILS % (AUTO) 1.1 % (0.0-4.0); LYMPHOCYTES % (AUTO) 26.3 % (20.5-51.5); MONOCYTES % (AUTO) 3.9 % (1.7-9.3); NEUTROPHILS % (AUTO) 66.5 % (40.0-70.0); PLATELET COUNT (AUTO) 449 K/uL (130-430); TOTAL BILIRUBIN 0.5 mg/dL (0.0-1.0)
[2017-10-16] MEDS ORDERED: HYDROmorphone 1 MG INJ. 1 MG/ML AMPUL IVP ONE (17:00)
[2017-10-16] MEDS ORDERED: HYDROmorphone 2 MG/ML VIAL ONE (17:02)
[2017-10-16 17:52] VITALS: BP_SYST 114
== END 2017-10-16 17:52 | disposition home or self-care (01) ==
LOC: SED 15:34
DX: M54.5 Low back pain (principal); R11.10 Vomiting, unspecified; J44.9 Chronic obstructive pulmonary disease, unspecified; I10 Essential (primary) hypertension; F41.9 Anxiety disorder, unspecified; M10.9 Gout, unspecified; Z90.710 Acquired absence of both cervix and uterus; Z79.899 Other long term (current) drug therapy; Z88.0 Allergy status to penicillin; Z91.018 Allergy to other foods
CPT/HCPCS: 36415; 71045; 72100; 80053; 83690; 83735; 85025; 96365; 96366; 96375; 99285; J1170; J2270; J2405; J3475; J7030

== ENCOUNTER 2017-10-26 18:36 | Emergency (ER) | payer OTHER ==
[~2017-10-26] VITALS: Ht 162.6 cm; Wt 104.3 kg
[2017-10-26 18:55] VITALS: BP_SYST 125
[2017-10-26] MEDS ORDERED: MORPHINE 4 MG/ML INJ. SYRINGE IVP ONE ×2 (19:15→23:00)
[2017-10-26] MEDS ORDERED: DIPHENHYDRAMINE INJ 50 MG/ML VIAL IVP ONE ×3 (19:15→23:00)
[2017-10-26 19:42] LABS: HEMATOCRIT 39.5 % (36-48); HEMOGLOBIN 12.8 g/dL (12.0-16.0); MEAN CORPUSCULAR HEMOGLOBIN 26 pg (27-31); MEAN CORPUSCULAR HGB CONC 32 % (32-36); MEAN CORPUSCULAR VOLUME 79 fL (79.0-98.0); PLATELET COUNT (AUTO) 522 K/uL (130-430); RED BLOOD CELL COUNT(AUTO) 5.01 MIL/uL (4.2-6.2); RED CELL DISTRIBUTION WIDTH 15.4 % (9.0-15.0); WHITE BLOOD COUNT (AUTO) 20.8 K/uL (4.8-10.8)
[2017-10-26 19:55] LABS: CALCIUM 10.4 mg/dL (8.4-11.0); CREATININE 0.92 mg/dL (0.55-1.30); POTASSIUM 3.2 mmol/L (3.5-5.1)
[2017-10-26 19:58] LABS: ALBUMIN 4.4 g/dL (3.4-4.8); PHOSPHORUS 2.6 mg/dL (2.7-4.5); TOTAL BILIRUBIN 0.5 mg/dL (0.0-1.0)
[2017-10-26] MEDS ORDERED: HYDROmorphone 1 MG INJ. 1 MG/ML AMPUL IVP ONE (20:00)
[2017-10-26] MEDS ORDERED: NACL 0.9% 1,000 ML IV ONE (20:00)
[2017-10-26] MEDS ORDERED: MAGNESIUM SULFATE 1 GM/2 ML VIAL IVP ONE (20:15)
[2017-10-26] MEDS ORDERED: POTASSIUM CHLORIDE 20 MEQ TAB.PRT.SR PO ONE (20:15)
[2017-10-26 20:19] LABS: BAND % (MANUAL) 1 % (0-6); LYMPHOCYTES % (MANUAL) 10 % (20-46); MONOCYTES % (MANUAL) 8 % (0-11)
[2017-10-26 20:20] LABS: ATYPICAL LYMPHOCYTES % 4 % (0-0); BASOPHILS % (MANUAL) 0 % (0-2); EOSINOPHILS % (MANUAL) 0 % (0-7)
[2017-10-26] MEDS ORDERED: MAGNESIUM SULFATE IN WATER 100 ML IV ONE (20:45)
[2017-10-26] MEDS ORDERED: MAGNESIUM SULFATE 100 ML IV ONE (20:51)
[2017-10-26 22:06] LABS: BILIRUBIN,URINE NEGATIVE (NEGATIVE); BLOOD, URINE NEGATIVE (NEGATIVE); CLARITY/URINE CLEAR (CLEAR); COLOR,URINE YELLOW (YELLOW); GLUCOSE,URINE NEGATIVE (NEGATIVE); KETONES,URINE NEGATIVE (NEGATIVE); LEUKOCYTE ESTERASE ,URINE NEGATIVE (NEGATIVE); NITRITE, URINE NEGATIVE (NEGATIVE); PROTEIN URINE NEGATIVE (NEGATIVE); UROBILINOGEN,URINE 0.2 (0.2-1.0)
[2017-10-26 23:35] VITALS: BP_SYST 126
== END 2017-10-26 23:22 | disposition home or self-care (01) ==
LOC: SED 18:36
DX: E83.42 Hypomagnesemia (principal); E87.6 Hypokalemia; D72.829 Elevated white blood cell count, unspecified; I10 Essential (primary) hypertension; J44.9 Chronic obstructive pulmonary disease, unspecified; F41.9 Anxiety disorder, unspecified; M10.9 Gout, unspecified; Z88.0 Allergy status to penicillin; Z91.018 Allergy to other foods; Z79.899 Other long term (current) drug therapy
CPT/HCPCS: 36415; 71045; 74176; 80053; 81003; 83735; 84100; 85007; 85027; 96365; 96375; 96376; 99285; J1200; J2270; J3475 ×2; J7030

== ENCOUNTER 2017-11-14 11:21 | Emergency (ER) | payer OTHER ==
[~2017-11-14] VITALS: Ht 162.6 cm; Wt 104.3 kg
[2017-11-14 12:12] VITALS: BP_SYST 102
--- NOTE | 2017-11-14 12:17 | NUR ---
Pt placed to ER waiting room in stable condition, in W/C.
[2017-11-14 12:41] LABS: BASOPHILS # (AUTO) 0.1 K/uL (0.0-0.2); BASOPHILS % (AUTO) 0.7 % (0.0-2.0); EOSINOPHILS # (AUTO) 0.2 K/uL (0.0-0.4); EOSINOPHILS % (AUTO) 1.2 % (0.0-4.0); HEMATOCRIT 39.6 % (36-48); HEMOGLOBIN 12.7 g/dL (12.0-16.0); LYMPHOCYTES # (AUTO) 3.9 K/uL (1.0-5.5); LYMPHOCYTES % (AUTO) 27.1 % (20.5-51.5); MEAN CORPUSCULAR HEMOGLOBIN 25 pg (27-31); MEAN CORPUSCULAR HGB CONC 32 % (32-36); MEAN CORPUSCULAR VOLUME 78 fL (79.0-98.0); MONOCYTES # (AUTO) 0.7 K/uL (0.0-1.0); MONOCYTES % (AUTO) 4.6 % (1.7-9.3); NEUTROPHILS # (AUTO) 9.5 K/uL (1.8-7.7); NEUTROPHILS % (AUTO) 66.4 % (40.0-70.0); RED BLOOD CELL COUNT(AUTO) 5.07 MIL/uL (4.2-6.2); RED CELL DISTRIBUTION WIDTH 15.1 % (9.0-15.0); WHITE BLOOD COUNT (AUTO) 14.4 K/uL (4.8-10.8)
[2017-11-14 12:57] LABS: CALCIUM 9.7 mg/dL (8.4-11.0); CREATININE 1.08 mg/dL (0.55-1.30); POTASSIUM 3.8 mmol/L (3.5-5.1)
[2017-11-14 13:01] LABS: ALBUMIN 4.1 g/dL (3.4-4.8); TOTAL BILIRUBIN 0.3 mg/dL (0.0-1.0)
[2017-11-14 13:10] LABS: PLATELET COUNT (AUTO) 530 K/uL (130-430)
[2017-11-14 14:37] LABS: BILIRUBIN,URINE NEGATIVE (NEGATIVE); BLOOD, URINE NEGATIVE (NEGATIVE); CLARITY/URINE CLEAR (CLEAR); COLOR,URINE YELLOW (YELLOW); GLUCOSE,URINE NEGATIVE (NEGATIVE); KETONES,URINE NEGATIVE (NEGATIVE); LEUKOCYTE ESTERASE ,URINE NEGATIVE (NEGATIVE); NITRITE, URINE NEGATIVE (NEGATIVE); PROTEIN URINE NEGATIVE (NEGATIVE); UROBILINOGEN,URINE 0.2 (0.2-1.0)
--- NOTE | 2017-11-14 15:15 | NUR ---
Pt placed to ER bed 04, to gown, Assumed care of pt. Pt c/o BLE pain, diarrhea, sore throat, anxiety and chest tightness x 1 day. Pt able to speak in full sentences, denies C/P or SOB.
--- NOTE | 2017-11-14 15:30 | NUR ---
Dr. Perdomo at bedside to assess pt.
[2017-11-14] MEDS ORDERED: LORazepam 2 MG/ML VIAL (FOR ER USE) IVP ONE (16:00)
[2017-11-14] MEDS ORDERED: DIPHENHYDRAMINE INJ 50 MG/ML VIAL IVP ONE ×2 (16:00→18:15)
[2017-11-14] MEDS ORDERED: MORPHINE 4 MG/ML INJ. SYRINGE IVP ONE (16:00)
[2017-11-14 16:42] LABS: AMYLASE 128 U/L (0-100); LIPASE 90 U/L (73-393)
--- NOTE | 2017-11-14 17:00 | NUR ---
Pt resting calmly, no needs verbalized at this time.
--- NOTE | 2017-11-14 18:00 | NUR ---
Pt c/o anxiety. Dr. Perdomo notified. Pt to be medicated with Benadryl.
[2017-11-14 19:00] VITALS: BP_SYST 136
--- NOTE | 2017-11-14 19:00 | NUR ---
Patient given written and verbal discharge instructions and verbalizes understanding. ER MD discussed with patient the results and treatment provided. Patient in stable condition. ID arm band removed. IV catheter removed intact and dressing applied, no active bleeding. Rx of Robitussin DM, Tylenol with Codeine, and Zithromax given. Patient educated on pain management and to follow up with PMD. Pain Scale 0/10. Opportunity for questions provided and answered. Medication side effect fact sheet provided.
== END 2017-11-14 19:00 | disposition home or self-care (01) ==
LOC: SED 11:21
DX: J40 Bronchitis, not specified as acute or chronic (principal); R10.84 Generalized abdominal pain; M79.606 Pain in leg, unspecified; J44.9 Chronic obstructive pulmonary disease, unspecified; I10 Essential (primary) hypertension; F41.9 Anxiety disorder, unspecified; M10.9 Gout, unspecified; Z88.0 Allergy status to penicillin; Z91.018 Allergy to other foods; Z79.899 Other long term (current) drug therapy
CPT/HCPCS: 36415; 71045; 80053; 81003; 82150; 83690; 83735; 84484; 85025; 86403; 87081; 96374; 96375; 96376; 99285; J1200; J2060; J2270

== ENCOUNTER 2017-11-20 15:38 | Emergency (ER) | payer OTHER ==
[~2017-11-20] VITALS: Ht 162.6 cm; Wt 104.3 kg
[2017-11-20 15:38] VITALS: BP_SYST 125
[2017-11-20 16:13] LABS: BILIRUBIN,URINE NEGATIVE (NEGATIVE); BLOOD, URINE NEGATIVE (NEGATIVE); CLARITY/URINE CLEAR (CLEAR); COLOR,URINE YELLOW (YELLOW); GLUCOSE,URINE NEGATIVE (NEGATIVE); KETONES,URINE NEGATIVE (NEGATIVE); LEUKOCYTE ESTERASE ,URINE NEGATIVE (NEGATIVE); NITRITE, URINE NEGATIVE (NEGATIVE); PH,URINE 8.5 (5.0-8.0); PROTEIN URINE NEGATIVE (NEGATIVE); UROBILINOGEN,URINE 0.2 (0.2-1.0)
[2017-11-20 16:27] LABS: BASOPHILS # (AUTO) 0.2 K/uL (0.0-0.2); EOSINOPHILS # (AUTO) 0.1 K/uL (0.0-0.4); HEMOGLOBIN 11.5 g/dL (12.0-16.0); MEAN CORPUSCULAR VOLUME 78 fL (79.0-98.0); MONOCYTES # (AUTO) 0.5 K/uL (0.0-1.0); NEUTROPHILS # (AUTO) 7.3 K/uL (1.8-7.7)
[2017-11-20 16:33] LABS: BASOPHILS % (AUTO) 1.7 % (0.0-2.0); EOSINOPHILS % (AUTO) 0.7 % (0.0-4.0); HEMATOCRIT 35.4 % (36-48); LYMPHOCYTES # (AUTO) 2.7 K/uL (1.0-5.5); LYMPHOCYTES % (AUTO) 25.2 % (20.5-51.5); MEAN CORPUSCULAR HEMOGLOBIN 25 pg (27-31); MEAN CORPUSCULAR HGB CONC 33 % (32-36); MONOCYTES % (AUTO) 4.5 % (1.7-9.3); NEUTROPHILS % (AUTO) 67.9 % (40.0-70.0); PLATELET COUNT (AUTO) 427 K/uL (130-430); RED BLOOD CELL COUNT(AUTO) 4.55 MIL/uL (4.2-6.2); RED CELL DISTRIBUTION WIDTH 15.3 % (9.0-15.0); WHITE BLOOD COUNT (AUTO) 10.8 K/uL (4.8-10.8)
[2017-11-20 16:37] LABS: ANION GAP 9 (5-15); CALCIUM 9.4 mg/dL (8.4-11.0); CHLORIDE 103 mmol/L (98-107); GLUCOSE 122 mg/dL (70-99); SODIUM SERUM 139 mmol/L (136-145); UREA NITROGEN, BLOOD 12 mg/dL (8-21)
[2017-11-20 16:40] LABS: GFR AFRICAN AMERICAN 98 mL/min (>90)
[2017-11-20 16:45] LABS: ALANINE AMINOTRANSFERASE 23 U/L (12-78); ALBUMIN 3.9 g/dL (3.4-4.8); ASPARTATE AMINOTRANSFERASE 16 U/L (10-37); TOTAL BILIRUBIN 0.6 mg/dL (0.0-1.0)
[2017-11-20 16:47] LABS: LIPASE 124 U/L (73-393)
[2017-11-20] MEDS ORDERED: MAGNESIUM SULFATE 50 ML IV ONE (17:00)
[2017-11-20] MEDS ORDERED: MAGNESIUM SULFATE 4 GM in D5W 250 ML IV ONE (17:00)
[2017-11-20] MEDS ORDERED: POTASSIUM CHLORIDE 20 MEQ TAB.PRT.SR PO ONE (17:00)
[2017-11-20] MEDS ORDERED: MORPHINE SULFATE 10 MG/ML VIAL IVP ONE ×2 (17:00→19:00)
[2017-11-20] MEDS ORDERED: DIPHENHYDRAMINE INJ 50 MG/ML VIAL IVP ONE ×3 (17:15→21:15)
[2017-11-20] MEDS ORDERED: KETOROLAC TROMETHAMINE 30 MG VIAL IVP ONE (20:15)
[2017-11-20 21:57] VITALS: BP_SYST 125
== END 2017-11-20 21:48 | disposition home or self-care (01) ==
LOC: SED 15:38
DX: E83.42 Hypomagnesemia (principal); E87.6 Hypokalemia; J44.9 Chronic obstructive pulmonary disease, unspecified; M10.9 Gout, unspecified; M79.7 Fibromyalgia; F41.9 Anxiety disorder, unspecified; I10 Essential (primary) hypertension; Z88.0 Allergy status to penicillin; Z79.899 Other long term (current) drug therapy; Z91.018 Allergy to other foods
CPT/HCPCS: 36415; 80053; 81003; 83690; 83735; 84484; 85025; 96365; 96375; 96376; 99284; J1200; J1885; J2270; J3475; J7060

== ENCOUNTER 2017-11-24 14:11 | Emergency (ER) | payer OTHER ==
[~2017-11-24] VITALS: Ht 165.1 cm; Wt 99.8 kg
[2017-11-24 14:22] VITALS: BP_SYST 125
[2017-11-24 15:07] LABS: BILIRUBIN,URINE 1+ (NEGATIVE); BLOOD, URINE NEGATIVE (NEGATIVE); CLARITY/URINE CLEAR (CLEAR); COLOR,URINE YELLOW (YELLOW); GLUCOSE,URINE NEGATIVE (NEGATIVE); KETONES,URINE NEGATIVE (NEGATIVE); LEUKOCYTE ESTERASE ,URINE NEGATIVE (NEGATIVE); NITRITE, URINE NEGATIVE (NEGATIVE); PROTEIN URINE NEGATIVE (NEGATIVE); UROBILINOGEN,URINE 0.2 (0.2-1.0)
[2017-11-24 15:09] LABS: BASOPHILS # (AUTO) 0.1 K/uL (0.0-0.2); BASOPHILS % (AUTO) 0.6 % (0.0-2.0); EOSINOPHILS % (AUTO) 0.4 % (0.0-4.0); HEMATOCRIT 41.3 % (36-48); LYMPHOCYTES % (AUTO) 16.8 % (20.5-51.5); MEAN CORPUSCULAR HEMOGLOBIN 25 pg (27-31); MEAN CORPUSCULAR HGB CONC 32 % (32-36); MEAN CORPUSCULAR VOLUME 78 fL (79.0-98.0); MONOCYTES # (AUTO) 0.4 K/uL (0.0-1.0); MONOCYTES % (AUTO) 3.3 % (1.7-9.3); NEUTROPHILS # (AUTO) 9.5 K/uL (1.8-7.7); NEUTROPHILS % (AUTO) 78.9 % (40.0-70.0); PLATELET COUNT (AUTO) 517 K/uL (130-430); RED CELL DISTRIBUTION WIDTH 15.5 % (9.0-15.0)
[2017-11-24] MEDS: NACL 0.9% 1,000 ML IV ONE (15:17)
[2017-11-24 15:30] LABS: ANION GAP 8 (5-15); CALCIUM 10.1 mg/dL (8.4-11.0); CHLORIDE 97 mmol/L (98-107); GLUCOSE 168 mg/dL (70-99); POTASSIUM 3.2 mmol/L (3.5-5.1); SODIUM SERUM 134 mmol/L (136-145)
[2017-11-24 15:31] LABS: ALANINE AMINOTRANSFERASE 28 U/L (12-78); ALBUMIN 4.1 g/dL (3.4-4.8); ASPARTATE AMINOTRANSFERASE 15 U/L (10-37); CREATININE 0.96 mg/dL (0.55-1.30); GFR AFRICAN AMERICAN 79 mL/min (>90); LIPASE 146 U/L (73-393); THYROID STIMULATING HORMONE 0.55 uIu/mL (0.34-4.82); TOTAL BILIRUBIN 0.7 mg/dL (0.0-1.0); UREA NITROGEN, BLOOD 17 mg/dL (8-21)
[2017-11-24] MEDS: LORazepam 1 MG TABLET PO ONE (15:31)
[2017-11-24] MEDS: POTASSIUM CHLORIDE 20 MEQ TAB.PRT.SR PO ONE (16:00)
[2017-11-24] MEDS: DIPHENHYDRAMINE INJ 50 MG/ML VIAL IVP ONE ×2 (16:02→18:43)
[2017-11-24] MEDS: MORPHINE SULFATE 10 MG/ML VIAL IVP ONE ×2 (16:04→18:44)
[2017-11-24] MEDS: MAGNESIUM SULFATE 4 GM in D5W 250 ML IV ONE (16:39)
[2017-11-24 18:49] VITALS: BP_SYST 132
== END 2017-11-24 18:40 | disposition home or self-care (01) ==
LOC: SED 14:11
DX: F41.9 Anxiety disorder, unspecified (principal); N95.1 Menopausal and female climacteric states; J44.9 Chronic obstructive pulmonary disease, unspecified; I10 Essential (primary) hypertension; M10.9 Gout, unspecified; M79.7 Fibromyalgia; Z90.710 Acquired absence of both cervix and uterus; Z88.0 Allergy status to penicillin; Z91.018 Allergy to other foods
CPT/HCPCS: 36415; 80053; 81003; 81025; 83690; 83735; 84443; 84484; 85025; 96361; 96365; 96366; 96375; 96376; 99285; J1200; J2270; J3475; J7030; J7060

== ENCOUNTER 2017-12-18 20:04 | Emergency (ER) | payer OTHER ==
[2017-12-18 20:10] VITALS: BP_SYST 117
[2017-12-18 20:43] LABS: BASOPHILS # (AUTO) 0.1 K/uL (0.0-0.2); BASOPHILS % (AUTO) 0.9 % (0.0-2.0); EOSINOPHILS # (AUTO) 0.2 K/uL (0.0-0.4); EOSINOPHILS % (AUTO) 1.9 % (0.0-4.0); HEMATOCRIT 35.6 % (36-48); HEMOGLOBIN 11.5 g/dL (12.0-16.0); LYMPHOCYTES # (AUTO) 3.1 K/uL (1.0-5.5); LYMPHOCYTES % (AUTO) 25.9 % (20.5-51.5); MEAN CORPUSCULAR HEMOGLOBIN 25 pg (27-31); MEAN CORPUSCULAR HGB CONC 32 % (32-36); MEAN CORPUSCULAR VOLUME 78 fL (79.0-98.0); MONOCYTES # (AUTO) 0.7 K/uL (0.0-1.0); MONOCYTES % (AUTO) 5.4 % (1.7-9.3); NEUTROPHILS # (AUTO) 8.1 K/uL (1.8-7.7); NEUTROPHILS % (AUTO) 65.9 % (40.0-70.0); PLATELET COUNT (AUTO) 470 K/uL (130-430); RED BLOOD CELL COUNT(AUTO) 4.56 MIL/uL (4.2-6.2); RED CELL DISTRIBUTION WIDTH 15.1 % (9.0-15.0); WHITE BLOOD COUNT (AUTO) 12.2 K/uL (4.8-10.8)
[2017-12-18 20:54] LABS: CALCIUM 9.4 mg/dL (8.4-11.0); CREATININE 0.94 mg/dL (0.55-1.30); POTASSIUM 3.9 mmol/L (3.5-5.1)
[2017-12-18 21:00] LABS: ALBUMIN 3.8 g/dL (3.4-4.8); PHOSPHORUS 3.4 mg/dL (2.7-4.5); TOTAL BILIRUBIN 0.5 mg/dL (0.0-1.0)
[2017-12-18] MEDS ORDERED: MAGNESIUM SULFATE 1 GM/2 ML VIAL ONE (21:08)
[2017-12-18] MEDS ORDERED: MAGNESIUM SULFATE 1 GM in NS 100 ML IV ONE (21:15)
[2017-12-18] MEDS ORDERED: KETOROLAC TROMETHAMINE 30 MG VIAL IVP ONE (21:15)
[2017-12-18] MEDS ORDERED: NACL 0.9% 1,000 ML IV ONE (21:15)
[2017-12-18] MEDS ORDERED: DIPHENHYDRAMINE INJ 50 MG/ML VIAL IVP ONE (21:30)
[2017-12-18] MEDS ORDERED: MORPHINE 4 MG/ML INJ. SYRINGE IVP ONE (22:00)
[2017-12-18 22:22] VITALS: BP_SYST 118
== END 2017-12-18 22:22 | disposition home or self-care (01) ==
LOC: SED 20:04
DX: M25.512 Pain in left shoulder (principal); J44.9 Chronic obstructive pulmonary disease, unspecified; I10 Essential (primary) hypertension; M10.9 Gout, unspecified; M79.7 Fibromyalgia; F41.9 Anxiety disorder, unspecified; Z88.0 Allergy status to penicillin; Z91.018 Allergy to other foods; Z79.899 Other long term (current) drug therapy; W18.09XA Striking against other object with subsequent fall, initial encounter; Y93.89 Activity, other specified; Y92.89 Other specified places as the place of occurrence of the external cause; Y99.8 Other external cause status
CPT/HCPCS: 36415; 73030; 80053; 83735; 84100; 85025; 96365; 96375; 99285; J1200; J1885; J2270; J3475; J7030

== ENCOUNTER 2018-01-27 17:54 | Emergency (ER) | payer OTHER ==
[~2018-01-27] VITALS: Ht 162.6 cm; Wt 104.3 kg
[2018-01-27 18:20] VITALS: BP_SYST 116
[2018-01-27] MEDS ORDERED: PROCHLORPERAZINE EDISYLATE 10 MG/2 ML VIAL IVP ONE (18:45)
[2018-01-27] MEDS ORDERED: DIPHENHYDRAMINE INJ 50 MG/ML VIAL IVP ONE (18:45)
[2018-01-27] MEDS ORDERED: fentaNYL CITRATE/PF 100 MCG/2 ML AMP IVP ONE (18:45)
[2018-01-27 18:55] LABS: BASOPHILS # (AUTO) 0.1 K/uL (0.0-0.2); BASOPHILS % (AUTO) 0.6 % (0.0-2.0); EOSINOPHILS # (AUTO) 0.1 K/uL (0.0-0.4); EOSINOPHILS % (AUTO) 0.5 % (0.0-4.0); HEMATOCRIT 40.3 % (36-48); HEMOGLOBIN 12.9 g/dL (12.0-16.0); LYMPHOCYTES # (AUTO) 2.7 K/uL (1.0-5.5); LYMPHOCYTES % (AUTO) 22.6 % (20.5-51.5); MEAN CORPUSCULAR HEMOGLOBIN 25 pg (27-31); MEAN CORPUSCULAR HGB CONC 32 % (32-36); MEAN CORPUSCULAR VOLUME 77 fL (79.0-98.0); MONOCYTES # (AUTO) 0.5 K/uL (0.0-1.0); MONOCYTES % (AUTO) 4.5 % (1.7-9.3); NEUTROPHILS # (AUTO) 8.5 K/uL (1.8-7.7); NEUTROPHILS % (AUTO) 71.8 % (40.0-70.0); PLATELET COUNT (AUTO) 490 K/uL (130-430); RED BLOOD CELL COUNT(AUTO) 5.24 MIL/uL (4.2-6.2); RED CELL DISTRIBUTION WIDTH 15.1 % (9.0-15.0); WHITE BLOOD COUNT (AUTO) 11.9 K/uL (4.8-10.8)
[2018-01-27 19:04] LABS: CALCIUM 9.6 mg/dL (8.4-11.0); CREATININE 1.16 mg/dL (0.55-1.30)
[2018-01-27 19:10] LABS: POTASSIUM 2.9 mmol/L (3.5-5.1)
[2018-01-27 19:13] LABS: ALBUMIN 3.8 g/dL (3.4-4.8); TOTAL BILIRUBIN 0.7 mg/dL (0.0-1.0)
[2018-01-27] MEDS ORDERED: MAGNESIUM SULFATE 4 GM in D5W 250 ML IV ONE (19:45)
[2018-01-27] MEDS ORDERED: KCL 20 mEq in 100 mL (PREMIX) 100 ML IV ONE (19:45)
[2018-01-27] MEDS ORDERED: POTASSIUM CHLORIDE 20 MEQ TAB.PRT.SR PO ONE (19:45)
[2018-01-27] MEDS ORDERED: MAGNESIUM SULFATE 1 GM/2 ML VIAL ONE ×2 (20:14→21:01)
[2018-01-27] MEDS ORDERED: KETOROLAC TROMETHAMINE 30 MG VIAL IVP ONE (22:30)
[2018-01-27 23:20] VITALS: BP_SYST 121
== END 2018-01-27 23:20 | disposition home or self-care (01) ==
LOC: SED 17:54
DX: M79.662 Pain in left lower leg (principal); M79.661 Pain in right lower leg; J44.9 Chronic obstructive pulmonary disease, unspecified; I10 Essential (primary) hypertension; M10.9 Gout, unspecified; F41.9 Anxiety disorder, unspecified; M79.7 Fibromyalgia; Z88.0 Allergy status to penicillin; Z79.899 Other long term (current) drug therapy; Z91.018 Allergy to other foods
CPT/HCPCS: 36415; 80053; 83735; 85025; 96365; 96366; 96375; 99285; J0780; J1200; J1885; J3010; J3475; J3480; J7050

== ENCOUNTER 2018-03-23 15:17 | Emergency (ER) | payer OTHER ==
[~2018-03-23] VITALS: Ht 162.6 cm; Wt 104.3 kg
[~2018-03-23 15:17] MED LIST changes: +POTA10TA11 PO; -POTA10TA79 PO; -SPIR50TA26 PO; +SPIR50TA5 PO
[2018-03-23] MEDS ORDERED: NACL 0.9% 1,000 ML IV ONE (15:30)
[2018-03-23] MEDS ORDERED: KETOROLAC TROMETHAMINE 30 MG VIAL IVP ONE (15:45)
[2018-03-23 15:47] LABS: BASOPHILS # (AUTO) 0.1 K/uL (0.0-0.2); EOSINOPHILS # (AUTO) 0.1 K/uL (0.0-0.4); HEMATOCRIT 36.9 % (36-48); HEMOGLOBIN 11.6 g/dL (12.0-16.0); LYMPHOCYTES # (AUTO) 2.7 K/uL (1.0-5.5); MEAN CORPUSCULAR HEMOGLOBIN 24 pg (27-31); MEAN CORPUSCULAR HGB CONC 32 % (32-36); MEAN CORPUSCULAR VOLUME 76 fL (79.0-98.0); MONOCYTES # (AUTO) 0.2 K/uL (0.0-1.0); NEUTROPHILS # (AUTO) 8.7 K/uL (1.8-7.7); PLATELET COUNT (AUTO) 462 K/uL (130-430); RED BLOOD CELL COUNT(AUTO) 4.84 MIL/uL (4.2-6.2); RED CELL DISTRIBUTION WIDTH 17.1 % (9.0-15.0); WHITE BLOOD COUNT (AUTO) 11.8 K/uL (4.8-10.8)
[2018-03-23 15:59] LABS: CALCIUM 9.4 mg/dL (8.4-11.0); CREATININE 1.05 mg/dL (0.55-1.30)
[2018-03-23 16:04] LABS: ALBUMIN 3.9 g/dL (3.4-4.8); TOTAL BILIRUBIN 0.6 mg/dL (0.0-1.0)
[2018-03-23] MEDS ORDERED: LORazepam 2 MG/ML VIAL (FOR ER USE) IVP ONE (16:15)
[2018-03-23] MEDS ORDERED: MAGNESIUM SULFATE 4 GM in D5W 250 ML IV ONE (16:15)
[2018-03-23] MEDS ORDERED: fentaNYL CITRATE/PF 100 MCG/2 ML AMP IVP ONE ×2 (16:45→20:15)
[2018-03-23] MEDS ORDERED: DIPHENHYDRAMINE INJ 50 MG/ML VIAL IVP ONE ×2 (18:45→20:15)
[2018-03-23 20:42] VITALS: BP_SYST 133
== END 2018-03-23 20:42 | disposition home or self-care (01) ==
LOC: SED 15:17
DX: E83.42 Hypomagnesemia (principal); R25.2 Cramp and spasm; J44.9 Chronic obstructive pulmonary disease, unspecified; I10 Essential (primary) hypertension; E66.9 Obesity, unspecified; F41.9 Anxiety disorder, unspecified; M79.7 Fibromyalgia; Z88.0 Allergy status to penicillin; Z91.02 Food additives allergy status; Z79.899 Other long term (current) drug therapy; Z68.39 Body mass index [BMI] 39.0-39.9, adult
CPT/HCPCS: 36415; 80053; 83735; 85025; 93005; 96361; 96374; 96375; 96376; 99285; J1200; J1885; J2060; J3010; J3475; J7030; J7060

== ENCOUNTER 2018-04-05 16:45 | Inpatient (IN) | payer OTHER ==
[~2018-04-05] VITALS: Ht 162.6 cm; Wt 110.7 kg
[2018-04-05 16:47] VITALS: BP_SYST 110
[2018-04-05] MEDS ORDERED: MORPHINE 4 MG/ML INJ. SYRINGE IVP ONE ×2 (17:00→18:30)
[2018-04-05] MEDS ORDERED: NACL 0.9% 1,000 ML IV ONE (17:15)
[2018-04-05] MEDS ORDERED: MAGNESIUM SULFATE 4 GM in D5W 250 ML IV ONE (17:15)
[2018-04-05 17:21] LABS: BASOPHILS # (AUTO) 0.3 K/uL (0.0-0.2); EOSINOPHILS # (AUTO) 0.1 K/uL (0.0-0.4); MONOCYTES # (AUTO) 0.4 K/uL (0.0-1.0)
[2018-04-05 17:25] LABS: BASOPHILS % (AUTO) 1.7 % (0.0-2.0); EOSINOPHILS % (AUTO) 0.6 % (0.0-4.0); HEMATOCRIT 36.5 % (36-48); HEMOGLOBIN 11.7 g/dL (12.0-16.0); LYMPHOCYTES % (AUTO) 20.3 % (20.5-51.5); MEAN CORPUSCULAR HEMOGLOBIN 24 pg (27-31); MEAN CORPUSCULAR HGB CONC 32 % (32-36); MEAN CORPUSCULAR VOLUME 76 fL (79.0-98.0); MONOCYTES % (AUTO) 2.4 % (1.7-9.3); NEUTROPHILS # (AUTO) 10.9 K/uL (1.8-7.7); PLATELET COUNT (AUTO) 434 K/uL (130-430); RED BLOOD CELL COUNT(AUTO) 4.82 MIL/uL (4.2-6.2); RED CELL DISTRIBUTION WIDTH 16.5 % (9.0-15.0); WHITE BLOOD COUNT (AUTO) 14.7 K/uL (4.8-10.8)
[2018-04-05] MEDS ORDERED: MAGNESIUM SULFATE 100 ML IV ONE (17:25)
[2018-04-05 17:31] LABS: CALCIUM 9.8 mg/dL (8.4-11.0); CREATININE 0.97 mg/dL (0.55-1.30)
[2018-04-05 17:32] LABS: PROTHROMBIN TIME 10.4 SECS (9.5-12.5)
[2018-04-05 17:42] LABS: ALBUMIN 3.9 g/dL (3.4-4.8); TOTAL BILIRUBIN 0.7 mg/dL (0.0-1.0)
[2018-04-05 17:49] LABS: POTASSIUM 2.6 mmol/L (3.5-5.1)
[2018-04-05] MEDS ORDERED: DIPHENHYDRAMINE INJ 50 MG/ML VIAL ONE (17:56)
[2018-04-05] MEDS ORDERED: KCL 20 mEq in 100 mL (PREMIX) 100 ML IV ONE (18:00)
[2018-04-05] MEDS ORDERED: DIPHENHYDRAMINE INJ 50 MG/ML VIAL IVP ONE (18:00)
[2018-04-05 18:57] VITALS: BP_SYST 106
[2018-04-05] MEDS ORDERED: LORA-259 PO (19:51)
[2018-04-05 20:30] VITALS: BP_SYST 114
[2018-04-05] MEDS ORDERED: POTASSIUM CHLORIDE IV ONE ×4 (20:30)
[2018-04-05] MEDS ORDERED: DIPHENHYDRAMINE INJ 50 MG/ML VIAL IVP SCH (20:30)
[2018-04-05] MEDS ORDERED: [UNRECOGNIZED DRUG - OTHER] IV ONE ×4 (20:30)
[2018-04-05] MEDS ORDERED: COLCHICINE 0.6 MG TABLET PO PRN (20:30)
[2018-04-05] MEDS ORDERED: DEXTROSE 50% JECT 50 ML DISP.SYRIN IVP PRN (20:30)
[2018-04-05] MEDS ORDERED: MAGNESIUM SULFATE IV ONE ×4 (20:30)
[2018-04-05] MEDS ORDERED: BISACODYL 5 MG TABLET.DR (DULCOLAX) PO PRN (20:45)
[2018-04-05] MEDS ORDERED: ACETAMINOPHEN 325 MG TABLET PO PRN (20:45)
[2018-04-05] MEDS: DIPHENHYDRAMINE INJ 50 MG/ML VIAL IVP PRN (20:59)
[2018-04-05] MEDS ORDERED: MORPHINE SULFATE 30 MG Immediate Release TABLET PO SCH (21:00)
[2018-04-05] MEDS: DOCUSATE SODIUM 250 MG CAPSULE PO SCH (21:00)
[2018-04-05] MEDS: MORPHINE 4 MG/ML INJ. SYRINGE IVP PRN (21:00)
[2018-04-05] MEDS ORDERED: aMILoride HCL 5 MG TABLET PO SCH (21:00)
[2018-04-05] MEDS: ONDANSETRON HCL 4 MG/2 ML VIAL IVP PRN (21:00)
[2018-04-05] MEDS: MAGNESIUM CHLORIDE 64 MG TABLET.DR PO SCH (21:00)
[2018-04-05] MEDS: CHOLECALCIFEROL (VITAMIN D3) 2,000 UNIT TABLET PO SCH (22:24)
[2018-04-05] MEDS: POTASSIUM CHLORIDE 20 MEQ TAB.PRT.SR PO SCH (22:24)
[2018-04-05] MEDS: LORazepam 1 MG TABLET PO SCH (22:24)
[2018-04-05] MEDS: MORPHINE SULFATE 30 MG Immediate Release TABLET PO SCH (22:25)
[2018-04-05] MEDS: MULTIVITAMINS TAB 1 TABLET PO SCH (22:25)
[2018-04-05] MEDS: MORPHINE 2 MG/ML INJ. SYRINGE IVP PRN (23:03)
[2018-04-06] VITALS (7 sets, daily range): BP systolic 106–124
[2018-04-06] MEDS: MORPHINE 4 MG/ML INJ. SYRINGE IVP PRN ×4 (01:06→22:54)
[2018-04-06] MEDS: DIPHENHYDRAMINE INJ 50 MG/ML VIAL IVP PRN ×6 (01:36→22:54)
[2018-04-06] MEDS: MORPHINE 2 MG/ML INJ. SYRINGE IVP PRN ×4 (03:03→18:48)
[2018-04-06 03:30] LABS: BILIRUBIN,URINE NEGATIVE (NEGATIVE); BLOOD, URINE NEGATIVE (NEGATIVE); CLARITY/URINE CLEAR (CLEAR); COLOR,URINE YELLOW (YELLOW); GLUCOSE,URINE NEGATIVE (NEGATIVE); KETONES,URINE NEGATIVE (NEGATIVE); LEUKOCYTE ESTERASE ,URINE NEGATIVE (NEGATIVE); NITRITE, URINE NEGATIVE (NEGATIVE); PROTEIN URINE NEGATIVE (NEGATIVE); UROBILINOGEN,URINE 0.2 (0.2-1.0)
[2018-04-06] MEDS: MORPHINE SULFATE 30 MG Immediate Release TABLET PO SCH ×3 (04:38→20:23)
[2018-04-06] MEDS: INSULIN REGULAR, HUMAN 100 UNITS/ML, 10 ML VIAL (novoLIN R) SUBCUT PRN ×2 (06:26→20:26)
[2018-04-06 07:08] LABS: CALCIUM 8.6 mg/dL (8.4-11.0); CREATININE 0.94 mg/dL (0.55-1.30)
[2018-04-06 07:20] LABS: BASOPHILS # (AUTO) 0.1 K/uL (0.0-0.2); EOSINOPHILS # (AUTO) 0.3 K/uL (0.0-0.4); EOSINOPHILS % (AUTO) 2.1 % (0.0-4.0); HEMOGLOBIN 11.3 g/dL (12.0-16.0); LYMPHOCYTES # (AUTO) 4.2 K/uL (1.0-5.5); LYMPHOCYTES % (AUTO) 32.8 % (20.5-51.5); MEAN CORPUSCULAR HEMOGLOBIN 25 pg (27-31); MEAN CORPUSCULAR HGB CONC 33 % (32-36); MEAN CORPUSCULAR VOLUME 77 fL (79.0-98.0); MONOCYTES # (AUTO) 0.7 K/uL (0.0-1.0); MONOCYTES % (AUTO) 5.2 % (1.7-9.3); NEUTROPHILS # (AUTO) 7.6 K/uL (1.8-7.7); NEUTROPHILS % (AUTO) 58.9 % (40.0-70.0); PLATELET COUNT (AUTO) 418 K/uL (130-430); RED BLOOD CELL COUNT(AUTO) 4.44 MIL/uL (4.2-6.2); RED CELL DISTRIBUTION WIDTH 16.8 % (9.0-15.0); WHITE BLOOD COUNT (AUTO) 12.9 K/uL (4.8-10.8)
[2018-04-06 07:21] LABS: POTASSIUM 2.8 mmol/L (3.5-5.1)
[2018-04-06 07:26] LABS: THYROID STIMULATING HORMONE 4.2 uIu/mL (0.36-3.74)
[2018-04-06] MEDS: CHOLECALCIFEROL (VITAMIN D3) 2,000 UNIT TABLET PO SCH ×2 (09:00→20:21)
[2018-04-06] MEDS: LORazepam 1 MG TABLET PO SCH ×2 (09:00→20:22)
[2018-04-06] MEDS: POTASSIUM CHLORIDE 20 MEQ TAB.PRT.SR PO SCH ×4 (09:00→20:21)
[2018-04-06] MEDS: MULTIVITAMINS TAB 1 TABLET PO SCH ×3 (09:01→20:21)
[2018-04-06] MEDS: DOCUSATE SODIUM 250 MG CAPSULE PO SCH ×2 (09:01→20:27)
[2018-04-06] MEDS: SPIRONOLACTONE 50 MG TABLET (ALDACTONE) PO SCH (09:01)
[2018-04-06] MEDS: DULoxetine HCL 30 MG CAPSULE.DR (CYMBALTA) PO SCH (09:01)
[2018-04-06] MEDS: MAGNESIUM CHLORIDE 64 MG TABLET.DR PO SCH ×2 (09:03→20:26)
[2018-04-06] MEDS ORDERED: POTASSIUM CHLORIDE 40 MEQ, LIDOCAINE JECT 2% PF 100 MG 50 MG in NS 250 ML IV ONE (13:30)
[2018-04-06] MEDS ORDERED: HEPARIN SODIUM,PORCINE 5000 UNITS/ML VIAL ONE (14:16)
[2018-04-06] MEDS ORDERED: CYCLOBENZAPRINE HCL 10 MG TABLET (FLEXERIL) PO ONE (16:30)
[2018-04-06] MEDS: ONDANSETRON HCL 4 MG/2 ML VIAL IVP PRN (17:43)
[2018-04-06] MEDS: CYCLOBENZAPRINE HCL 10 MG TABLET (FLEXERIL) PO SCH (20:21)
[2018-04-07] MEDS: MORPHINE 4 MG/ML INJ. SYRINGE IVP PRN ×6 (02:54→23:07)
[2018-04-07] MEDS: DIPHENHYDRAMINE INJ 50 MG/ML VIAL IVP PRN ×6 (02:54→22:40)
[2018-04-07] MEDS: MORPHINE SULFATE 30 MG Immediate Release TABLET PO SCH ×3 (05:28→21:44)
[2018-04-07] MEDS: INSULIN REGULAR, HUMAN 100 UNITS/ML, 10 ML VIAL (novoLIN R) SUBCUT PRN (06:37)
[2018-04-07 07:10] LABS: BASOPHILS # (AUTO) 0.1 K/uL (0.0-0.2); BASOPHILS % (AUTO) 0.8 % (0.0-2.0); EOSINOPHILS # (AUTO) 0.3 K/uL (0.0-0.4); HEMATOCRIT 30.8 % (36-48); HEMOGLOBIN 10.2 g/dL (12.0-16.0); LYMPHOCYTES # (AUTO) 3.4 K/uL (1.0-5.5); LYMPHOCYTES % (AUTO) 30.9 % (20.5-51.5); MEAN CORPUSCULAR HEMOGLOBIN 26 pg (27-31); MEAN CORPUSCULAR HGB CONC 33 % (32-36); MEAN CORPUSCULAR VOLUME 77 fL (79.0-98.0); MONOCYTES # (AUTO) 0.5 K/uL (0.0-1.0); MONOCYTES % (AUTO) 4.9 % (1.7-9.3); NEUTROPHILS # (AUTO) 6.7 K/uL (1.8-7.7); NEUTROPHILS % (AUTO) 60.4 % (40.0-70.0); PLATELET COUNT (AUTO) 339 K/uL (130-430); RED BLOOD CELL COUNT(AUTO) 3.99 MIL/uL (4.2-6.2); RED CELL DISTRIBUTION WIDTH 16.5 % (9.0-15.0)
[2018-04-07 07:24] LABS: CALCIUM 8.6 mg/dL (8.4-11.0); CREATININE 0.86 mg/dL (0.55-1.30); POTASSIUM 3.2 mmol/L (3.5-5.1); THYROID STIMULATING HORMONE 1.68 uIu/mL (0.34-4.82)
[2018-04-07 08:00] VITALS: BP_SYST 105
[2018-04-07] MEDS: MULTIVITAMINS TAB 1 TABLET PO SCH ×3 (09:40→21:38)
[2018-04-07] MEDS: SPIRONOLACTONE 50 MG TABLET (ALDACTONE) PO SCH (09:40)
[2018-04-07] MEDS: POTASSIUM CHLORIDE 20 MEQ TAB.PRT.SR PO SCH ×4 (09:40→21:38)
[2018-04-07] MEDS: CYCLOBENZAPRINE HCL 10 MG TABLET (FLEXERIL) PO SCH ×2 (09:40→21:37)
[2018-04-07] MEDS: LORazepam 1 MG TABLET PO SCH ×2 (09:41→21:36)
[2018-04-07] MEDS: DULoxetine HCL 30 MG CAPSULE.DR (CYMBALTA) PO SCH (09:41)
[2018-04-07] MEDS: DOCUSATE SODIUM 250 MG CAPSULE PO SCH ×2 (09:41→21:37)
[2018-04-07] MEDS: CHOLECALCIFEROL (VITAMIN D3) 2,000 UNIT TABLET PO SCH ×2 (09:41→21:39)
[2018-04-07] MEDS: MAGNESIUM CHLORIDE 64 MG TABLET.DR PO SCH ×2 (09:54→21:41)
[2018-04-07] MEDS: AMILORIDE 5 MG PO SCH ×2 (09:55→21:39)
[2018-04-07 11:36] VITALS: BP_SYST 111
[2018-04-07] MEDS ORDERED: POTASSIUM CHLORIDE 40 MEQ, MAGNESIUM SULFATE 4 GM, LIDOCAINE JECT 2% PF 100 MG 50 MG in... IV ONE ×8 (12:30→18:00)
[2018-04-07 12:54] LABS: TOTAL IRON BIND. CAPACITY 380 ug/dL (250-450)
[2018-04-07] MEDS ORDERED: COMMUNICATION ORDER XX SCH (15:45)
[2018-04-07 16:00] VITALS: BP_SYST 120
[2018-04-07] MEDS ORDERED: [UNRECOGNIZED DRUG - OTHER] IV ONE ×4 (17:15)
[2018-04-07] MEDS ORDERED: POTASSIUM CHLORIDE IV ONE ×4 (17:15)
[2018-04-07] MEDS ORDERED: MAGNESIUM SULFATE IV ONE ×4 (17:15)
[2018-04-07 19:00] VITALS: BP_SYST 99
[2018-04-07 20:00] VITALS: BP_SYST 99
[2018-04-07] MEDS: TEMAZEPAM 15 MG CAPSULE PO PRN (22:39)
[2018-04-07] MEDS: MORPHINE 2 MG/ML INJ. SYRINGE IVP PRN (22:43)
[2018-04-08] MEDS: SOD FERRIC GLUC COMPLEX/SUC 125 MG in NS 100 ML IV SCH ×2 (00:08→21:26)
[2018-04-08 01:04] VITALS: BP_SYST 122
[2018-04-08] MEDS: MORPHINE 2 MG/ML INJ. SYRINGE IVP PRN ×3 (01:11→21:31)
[2018-04-08] MEDS: MORPHINE SULFATE 30 MG Immediate Release TABLET PO SCH ×3 (05:00→21:27)
[2018-04-08] MEDS: MORPHINE 4 MG/ML INJ. SYRINGE IVP PRN ×5 (05:06→23:47)
[2018-04-08] MEDS: DIPHENHYDRAMINE INJ 50 MG/ML VIAL IVP PRN ×5 (05:07→23:44)
[2018-04-08 07:02] LABS: BASOPHILS # (AUTO) 0.1 K/uL (0.0-0.2); BASOPHILS % (AUTO) 0.7 % (0.0-2.0); EOSINOPHILS # (AUTO) 0.3 K/uL (0.0-0.4); EOSINOPHILS % (AUTO) 3.4 % (0.0-4.0); HEMOGLOBIN 9.7 g/dL (12.0-16.0); LYMPHOCYTES # (AUTO) 2.7 K/uL (1.0-5.5); LYMPHOCYTES % (AUTO) 26.8 % (20.5-51.5); MEAN CORPUSCULAR HEMOGLOBIN 25 pg (27-31); MEAN CORPUSCULAR HGB CONC 32 % (32-36); MEAN CORPUSCULAR VOLUME 77 fL (79.0-98.0); MONOCYTES # (AUTO) 0.6 K/uL (0.0-1.0); NEUTROPHILS # (AUTO) 6.5 K/uL (1.8-7.7); NEUTROPHILS % (AUTO) 63.1 % (40.0-70.0); PLATELET COUNT (AUTO) 378 K/uL (130-430); RED CELL DISTRIBUTION WIDTH 16.6 % (9.0-15.0); WHITE BLOOD COUNT (AUTO) 10.2 K/uL (4.8-10.8)
[2018-04-08 07:27] LABS: CALCIUM 8.7 mg/dL (8.4-11.0); CREATININE 0.92 mg/dL (0.55-1.30); POTASSIUM 3.8 mmol/L (3.5-5.1)
[2018-04-08 08:00] VITALS: BP_SYST 120
[2018-04-08 08:01] LABS: ALBUMIN 3.3 g/dL (3.4-4.8); TOTAL BILIRUBIN 0.2 mg/dL (0.0-1.0)
[2018-04-08 08:13] LABS: FOLATE (FOLIC ACID) 12.4 ng/mL (>3.0)
[2018-04-08 09:22] LABS: RETICULOCYTE COUNT 1.4 % (0.5-1.5)
[2018-04-08] MEDS: DULoxetine HCL 30 MG CAPSULE.DR (CYMBALTA) PO SCH (09:36)
[2018-04-08] MEDS: POTASSIUM CHLORIDE 20 MEQ TAB.PRT.SR PO SCH ×4 (09:36→21:26)
[2018-04-08] MEDS: SPIRONOLACTONE 50 MG TABLET (ALDACTONE) PO SCH (09:38)
[2018-04-08] MEDS: CYCLOBENZAPRINE HCL 10 MG TABLET (FLEXERIL) PO SCH ×2 (09:38→21:27)
[2018-04-08] MEDS: LORazepam 1 MG TABLET PO SCH ×2 (09:39→21:27)
[2018-04-08] MEDS: DOCUSATE SODIUM 250 MG CAPSULE PO SCH ×2 (09:39→21:27)
[2018-04-08] MEDS: MULTIVITAMINS TAB 1 TABLET PO SCH ×2 (09:39→21:26)
[2018-04-08] MEDS: CHOLECALCIFEROL (VITAMIN D3) 2,000 UNIT TABLET PO SCH ×2 (09:39→21:27)
[2018-04-08] MEDS: AMILORIDE 5 MG PO SCH ×2 (09:41→21:29)
[2018-04-08] MEDS: MAGNESIUM CHLORIDE 64 MG TABLET.DR PO SCH ×2 (09:42→21:28)
[2018-04-08 12:45] VITALS: BP_SYST 125
[2018-04-08] MEDS ORDERED: MINERAL OIL 30 ML UDC PO PRN (13:00)
[2018-04-08] MEDS ORDERED: LACTULOSE 20 GM/30 ML UDC PO PRN (13:00)
[2018-04-08 16:41] VITALS: BP_SYST 132
[2018-04-08 20:00] VITALS: BP_SYST 110
[2018-04-09] MEDS: TEMAZEPAM 15 MG CAPSULE PO PRN (00:03)
[2018-04-09 00:45] VITALS: BP_SYST 121
[2018-04-09] MEDS: MORPHINE SULFATE 30 MG Immediate Release TABLET PO SCH ×3 (05:00→20:11)
[2018-04-09] MEDS: MORPHINE 4 MG/ML INJ. SYRINGE IVP PRN ×5 (06:07→22:37)
[2018-04-09] MEDS: DIPHENHYDRAMINE INJ 50 MG/ML VIAL IVP PRN ×5 (06:07→22:37)
[2018-04-09 06:51] LABS: BASOPHILS # (AUTO) 0.1 K/uL (0.0-0.2); BASOPHILS % (AUTO) 0.6 % (0.0-2.0); EOSINOPHILS # (AUTO) 0.6 K/uL (0.0-0.4); EOSINOPHILS % (AUTO) 6.1 % (0.0-4.0); HEMATOCRIT 30.7 % (36-48); LYMPHOCYTES # (AUTO) 3.1 K/uL (1.0-5.5); LYMPHOCYTES % (AUTO) 30.2 % (20.5-51.5); MEAN CORPUSCULAR HEMOGLOBIN 25 pg (27-31); MEAN CORPUSCULAR HGB CONC 33 % (32-36); MEAN CORPUSCULAR VOLUME 78 fL (79.0-98.0); MONOCYTES # (AUTO) 0.6 K/uL (0.0-1.0); MONOCYTES % (AUTO) 5.6 % (1.7-9.3); NEUTROPHILS # (AUTO) 5.8 K/uL (1.8-7.7); NEUTROPHILS % (AUTO) 57.5 % (40.0-70.0); PLATELET COUNT (AUTO) 362 K/uL (130-430); RED BLOOD CELL COUNT(AUTO) 3.96 MIL/uL (4.2-6.2); RED CELL DISTRIBUTION WIDTH 16.5 % (9.0-15.0); WHITE BLOOD COUNT (AUTO) 10.2 K/uL (4.8-10.8)
[2018-04-09 07:02] LABS: CALCIUM 9.1 mg/dL (8.4-11.0); CREATININE 0.92 mg/dL (0.55-1.30); POTASSIUM 4.3 mmol/L (3.5-5.1)
[2018-04-09 08:06] VITALS: BP_SYST 100
[2018-04-09] MEDS: DOCUSATE SODIUM 250 MG CAPSULE PO SCH ×2 (08:41→20:12)
[2018-04-09] MEDS: CYCLOBENZAPRINE HCL 10 MG TABLET (FLEXERIL) PO SCH ×2 (08:43→20:12)
[2018-04-09] MEDS: MULTIVITAMINS TAB 1 TABLET PO SCH ×2 (08:43→20:12)
[2018-04-09] MEDS: LORazepam 1 MG TABLET PO SCH ×2 (08:43→20:12)
[2018-04-09] MEDS: DULoxetine HCL 30 MG CAPSULE.DR (CYMBALTA) PO SCH (08:43)
[2018-04-09] MEDS: POTASSIUM CHLORIDE 20 MEQ TAB.PRT.SR PO SCH ×4 (08:43→20:11)
[2018-04-09] MEDS: CHOLECALCIFEROL (VITAMIN D3) 2,000 UNIT TABLET PO SCH ×2 (08:43→20:12)
[2018-04-09] MEDS: AMILORIDE 5 MG PO SCH ×2 (08:45→20:12)
[2018-04-09] MEDS: MAGNESIUM CHLORIDE 64 MG TABLET.DR PO SCH ×2 (08:46→20:13)
[2018-04-09] MEDS: ONDANSETRON HCL 4 MG/2 ML VIAL IVP PRN ×2 (08:46→22:36)
[2018-04-09] MEDS: SPIRONOLACTONE 50 MG TABLET (ALDACTONE) PO SCH (08:51)
[2018-04-09 09:08] LABS: WEST NILE VIRUS, IgG, SERUM Negative (Negative)
[2018-04-09] MEDS ORDERED: MAGNESIUM SULFATE 4 GM in D5W 250 ML IV ONE ×2 (10:15→17:00)
[2018-04-09 12:55] VITALS: BP_SYST 113
[2018-04-09] MEDS ORDERED: CYCL-10 PO (16:03)
[2018-04-09] MEDS ORDERED: MORP30TA PO (16:03)
[2018-04-09 16:55] VITALS: BP_SYST 123
[2018-04-09 20:00] VITALS: BP_SYST 110
[2018-04-09] MEDS: INSULIN REGULAR, HUMAN 100 UNITS/ML, 10 ML VIAL (novoLIN R) SUBCUT PRN (20:22)
[2018-04-09] MEDS: SOD FERRIC GLUC COMPLEX/SUC 125 MG in NS 100 ML IV SCH (21:24)
[2018-04-09 22:17] VITALS: BP_SYST 112
== END 2018-04-09 23:55 | disposition home or self-care (01) | DRG 866 ==
LOC: SED 16:45 → STU 18:20 → SMU 04-08 12:52
PROVIDERS: ADMIT Internal Medicine; ATTEND Internal Medicine
DX: B34.9 Viral infection, unspecified (principal); Z68.41 Body mass index [BMI] 40.0-44.9, adult; E87.6 Hypokalemia; E83.42 Hypomagnesemia; M11.20 Other chondrocalcinosis, unspecified site; J44.9 Chronic obstructive pulmonary disease, unspecified; I10 Essential (primary) hypertension; F41.9 Anxiety disorder, unspecified; M79.7 Fibromyalgia; F32.9 Major depressive disorder, single episode, unspecified; G89.4 Chronic pain syndrome; E66.01 Morbid (severe) obesity due to excess calories; N25.89 Other disorders resulting from impaired renal tubular function; D50.9 Iron deficiency anemia, unspecified; R73.03 Prediabetes; Z88.0 Allergy status to penicillin; Z91.018 Allergy to other foods; Z91.048 Other nonmedicinal substance allergy status; Z79.899 Other long term (current) drug therapy; Z90.710 Acquired absence of both cervix and uterus; Z98.891 History of uterine scar from previous surgery; Z87.19 Personal history of other diseases of the digestive system
CPT/HCPCS: 36415; 71045; 80048; 80053; 80061; 81003; 82306; 82550-TC; 82607; 82746; 82962; 83036; 83540-TC; 83550-TC; 83735-TC; 84439; 84443-TC; 85025; 85044-TC; 85610-TC; 86788; 86789; 87086; 93005; 96365; 96375; 99285; J1200; J1644; J1815; J2270; J2274; J2405; J2916; J3475; J3480; J7030; J7040; J7050; J7060

== ENCOUNTER 2018-04-17 19:24 | Emergency (ER) | payer OTHER ==
[~2018-04-17] VITALS: Ht 170.2 cm; Wt 81.6 kg
[~2018-04-17 19:24] MED LIST changes: -BACL10TA PO; -BUSP10TA3 PO; +CYCL-10 PO; -FENT1PAT4 TD; -IRON1CAP17; +LORA-259 PO; -MORP15TA60 PO; +MORP30TA PO; -SACC250C3 PO
--- NOTE | 2018-04-17 19:29 | NUR ---
Patient to ER bed 8 to gown for evaluation. Side rails up. Report given to ABHILASH HAQUE.
[2018-04-17 19:34] VITALS: BP_SYST 109
--- NOTE | 2018-04-17 19:35 | NUR ---
Patient AAO x4 sitting in bed c/o diarrhea x 4 days with lower right leg cramping and nausea and vomiting. Patient denies shortness of breath, denies chest pain, patient states she was recently hospitalized and sent home, had a white bowel movement on and has had diarrhea x4 today. Denies fowl odor, does have history of c-diff and was given abx medication during last hospital admission last week. No acute distress, will continue to monitor.
--- NOTE | 2018-04-17 19:40 | NUR ---
DENNIS Cummings at bedside examining patient.
[2018-04-17] MEDS ORDERED: ONDANSETRON HCL 4 MG/2 ML VIAL IVP ONE (20:00)
[2018-04-17] MEDS ORDERED: NACL 0.9% 1,000 ML IV ONE (20:00)
--- NOTE | 2018-04-17 20:00 | NUR ---
# 22 gauge angiocath placed to l arm. Use of asceptic technique. Opsite placed over site. Blood return noted. Blood for lab drawn from site. Flushed with 10 cc of normal saline. No evidence of infiltration noted. Patient tolerated well.
[2018-04-17] MEDS ORDERED: LORazepam 2 MG/ML VIAL (FOR ER USE) IVP ONE ×2 (20:15→23:15)
[2018-04-17 20:21] LABS: BASOPHILS # (AUTO) 0.1 K/uL (0.0-0.2); BASOPHILS % (AUTO) 0.8 % (0.0-2.0); EOSINOPHILS # (AUTO) 0.1 K/uL (0.0-0.4); EOSINOPHILS % (AUTO) 0.8 % (0.0-4.0); HEMATOCRIT 34.9 % (36-48); HEMOGLOBIN 11.4 g/dL (12.0-16.0); LYMPHOCYTES # (AUTO) 3.1 K/uL (1.0-5.5); LYMPHOCYTES % (AUTO) 24.2 % (20.5-51.5); MEAN CORPUSCULAR HEMOGLOBIN 26 pg (27-31); MEAN CORPUSCULAR HGB CONC 33 % (32-36); MEAN CORPUSCULAR VOLUME 79 fL (79.0-98.0); MONOCYTES # (AUTO) 0.7 K/uL (0.0-1.0); MONOCYTES % (AUTO) 5.1 % (1.7-9.3); NEUTROPHILS # (AUTO) 8.9 K/uL (1.8-7.7); NEUTROPHILS % (AUTO) 69.1 % (40.0-70.0); PLATELET COUNT (AUTO) 357 K/uL (130-430); RED CELL DISTRIBUTION WIDTH 19.5 % (9.0-15.0); WHITE BLOOD COUNT (AUTO) 12.9 K/uL (4.8-10.8)
[2018-04-17 20:25] LABS: CALCIUM 8.8 mg/dL (8.4-11.0); CREATININE 0.85 mg/dL (0.55-1.30)
[2018-04-17 20:28] LABS: POTASSIUM 2.7 mmol/L (3.5-5.1)
[2018-04-17 20:29] LABS: ALBUMIN 3.6 g/dL (3.4-4.8); PHOSPHORUS 2.3 mg/dL (2.7-4.5); TOTAL BILIRUBIN 0.4 mg/dL (0.0-1.0)
[2018-04-17] MEDS ORDERED: POTASSIUM CHLORIDE 20 MEQ/PKT PACKET PO ONE (20:45)
--- NOTE | 2018-04-17 21:08 | NUR ---
Stool and urine sample collected. Stool sample sent to lab with mandatory supplemental documentation for c. difficile.
[2018-04-17] MEDS ORDERED: K PHOS 15 MM in NS 250 ML IV ONE (21:15)
[2018-04-17] MEDS ORDERED: MAGNESIUM SULFATE 1 GM in NS 100 ML IV ONE (21:15)
[2018-04-17] MEDS ORDERED: MAGNESIUM SULFATE 1 GM/2 ML VIAL ONE (21:25)
[2018-04-17 21:27] LABS: BILIRUBIN,URINE NEGATIVE (NEGATIVE); BLOOD, URINE NEGATIVE (NEGATIVE); CLARITY/URINE CLEAR (CLEAR); COLOR,URINE YELLOW (YELLOW); GLUCOSE,URINE NEGATIVE (NEGATIVE); KETONES,URINE NEGATIVE (NEGATIVE); LEUKOCYTE ESTERASE ,URINE NEGATIVE (NEGATIVE); NITRITE, URINE NEGATIVE (NEGATIVE); PROTEIN URINE NEGATIVE (NEGATIVE); UROBILINOGEN,URINE 0.2 (0.2-1.0)
[2018-04-17] MEDS ORDERED: MORPHINE 4 MG/ML INJ. SYRINGE IVP ONE (21:30)
[2018-04-17] MEDS ORDERED: DIPHENHYDRAMINE INJ 50 MG/ML VIAL IVP ONE (21:45)
[2018-04-17 23:26] VITALS: BP_SYST 119
--- NOTE | 2018-04-17 23:26 | NUR ---
Patient given written and verbal discharge instructions and verbalizes understanding. ER MD discussed with patient the results and treatment provided. Patient in stable condition. ID arm band removed. IV catheter removed intact and dressing applied, no active bleeding. Patient educated on pain management and to follow up with PMD. Pain Scale 0/10. Opportunity for questions provided and answered.
== END 2018-04-17 23:26 | disposition home or self-care (01) ==
LOC: SED 19:24
DX: E87.6 Hypokalemia (principal); R19.7 Diarrhea, unspecified; R25.2 Cramp and spasm; E83.42 Hypomagnesemia; N25.89 Other disorders resulting from impaired renal tubular function; J44.9 Chronic obstructive pulmonary disease, unspecified; I10 Essential (primary) hypertension; M10.9 Gout, unspecified; M79.7 Fibromyalgia; F41.9 Anxiety disorder, unspecified; F12.10 Cannabis abuse, uncomplicated; Z90.710 Acquired absence of both cervix and uterus; Z79.899 Other long term (current) drug therapy; Z88.0 Allergy status to penicillin; Z91.018 Allergy to other foods
CPT/HCPCS: 36415; 74176; 80053; 81003; 83735; 84100; 85025; 87045; 87230; 96361; 96365; 96375; 96376; 99285; J1200; J2060; J2270; J2405; J3475; J7050

== ENCOUNTER 2018-04-20 20:35 | Emergency (ER) | payer OTHER ==
[~2018-04-20] VITALS: Ht 162.6 cm; Wt 104.3 kg
[2018-04-20 20:39] VITALS: BP_SYST 117
[2018-04-20] MEDS ORDERED: NACL 0.9% 1,000 ML IV ONE ×2 (20:39→21:15)
[2018-04-20] MEDS ORDERED: ONDANSETRON HCL 4 MG/2 ML VIAL IVP ONE (20:45)
[2018-04-20] MEDS ORDERED: MORPHINE 4 MG/ML INJ. SYRINGE IVP ONE (20:45)
[2018-04-20] MEDS ORDERED: NS 1000 ML IV.SOLN IV ONE (20:45)
[2018-04-20 21:44] LABS: BASOPHILS # (AUTO) 0.3 K/uL (0.0-0.2); BASOPHILS % (AUTO) 2.4 % (0.0-2.0); EOSINOPHILS # (AUTO) 0.2 K/uL (0.0-0.4); EOSINOPHILS % (AUTO) 1.3 % (0.0-4.0); HEMATOCRIT 37.9 % (36-48); HEMOGLOBIN 12.4 g/dL (12.0-16.0); LYMPHOCYTES # (AUTO) 3.4 K/uL (1.0-5.5); LYMPHOCYTES % (AUTO) 26.3 % (20.5-51.5); MEAN CORPUSCULAR HEMOGLOBIN 26 pg (27-31); MEAN CORPUSCULAR HGB CONC 33 % (32-36); MEAN CORPUSCULAR VOLUME 79 fL (79.0-98.0); MONOCYTES # (AUTO) 0.5 K/uL (0.0-1.0); MONOCYTES % (AUTO) 3.6 % (1.7-9.3); NEUTROPHILS # (AUTO) 8.4 K/uL (1.8-7.7); PLATELET COUNT (AUTO) 408 K/uL (130-430); RED BLOOD CELL COUNT(AUTO) 4.78 MIL/uL (4.2-6.2); RED CELL DISTRIBUTION WIDTH 19.9 % (9.0-15.0); WHITE BLOOD COUNT (AUTO) 12.8 K/uL (4.8-10.8)
[2018-04-20 21:50] LABS: CALCIUM 9.3 mg/dL (8.4-11.0); CREATININE 0.9 mg/dL (0.55-1.30); POTASSIUM 3.6 mmol/L (3.5-5.1)
[2018-04-20 21:53] LABS: PROTHROMBIN TIME 10.5 SECS (9.5-12.5)
[2018-04-20 21:54] LABS: ALBUMIN 3.8 g/dL (3.4-4.8); TOTAL BILIRUBIN 0.3 mg/dL (0.0-1.0)
[2018-04-20 22:08] LABS: NEUTROPHILS % (AUTO) 66.4 % (40.0-70.0)
[2018-04-20 22:38] LABS: BILIRUBIN,URINE NEGATIVE (NEGATIVE); BLOOD, URINE NEGATIVE (NEGATIVE); CLARITY/URINE CLEAR (CLEAR); COLOR,URINE YELLOW (YELLOW); GLUCOSE,URINE NEGATIVE (NEGATIVE); KETONES,URINE NEGATIVE (NEGATIVE); LEUKOCYTE ESTERASE ,URINE NEGATIVE (NEGATIVE); NITRITE, URINE NEGATIVE (NEGATIVE); PROTEIN URINE NEGATIVE (NEGATIVE); UROBILINOGEN,URINE 0.2 (0.2-1.0)
[2018-04-20] MEDS ORDERED: ONDANSETRON HCL 4 MG/2 ML VIAL ONE (22:55)
[2018-04-20] MEDS ORDERED: MORPHINE 4 MG/ML INJ. SYRINGE ONE (22:56)
[2018-04-20] MEDS ORDERED: KETOROLAC TROMETHAMINE 30 MG VIAL IVP ONE (23:30)
[2018-04-20] MEDS ORDERED: DIPHENHYDRAMINE INJ 50 MG/ML VIAL IVP ONE (23:30)
[2018-04-21 00:06] VITALS: BP_SYST 124
== END 2018-04-21 00:06 | disposition home or self-care (01) ==
LOC: SED 20:35
DX: R10.9 Unspecified abdominal pain (principal); G89.29 Other chronic pain; R19.7 Diarrhea, unspecified; J44.9 Chronic obstructive pulmonary disease, unspecified; I10 Essential (primary) hypertension; E83.42 Hypomagnesemia; F41.9 Anxiety disorder, unspecified; M79.7 Fibromyalgia; Z79.899 Other long term (current) drug therapy; Z88.0 Allergy status to penicillin; Z91.018 Allergy to other foods
CPT/HCPCS: 36415; 71045; 80053; 81003; 82150; 82550; 83605; 83690; 83735; 85025; 85610; 85730; 87040; 93005; 96361; 96374; 96375; 99285; J1200; J1885; J2270; J2405; J7030; 99284

== ENCOUNTER 2018-04-30 21:03 | Emergency (ER) | payer OTHER ==
[~2018-04-30] VITALS: Ht 162.6 cm; Wt 104.3 kg
[2018-04-30 21:17] VITALS: BP_SYST 154
[2018-04-30] MEDS ORDERED: DIPHENHYDRAMINE INJ 50 MG/ML VIAL IVP ONE (21:45)
[2018-04-30] MEDS ORDERED: MORPHINE 4 MG/ML INJ. SYRINGE IVP ONE (21:45)
[2018-04-30] MEDS ORDERED: NACL 0.9% 1,000 ML IV ONE (21:45)
[2018-04-30 22:27] LABS: BASOPHILS # (AUTO) 0.1 K/uL (0.0-0.2); BASOPHILS % (AUTO) 0.8 % (0.0-2.0); EOSINOPHILS # (AUTO) 0.3 K/uL (0.0-0.4); EOSINOPHILS % (AUTO) 2.2 % (0.0-4.0); HEMATOCRIT 31.8 % (36-48); LYMPHOCYTES # (AUTO) 3.7 K/uL (1.0-5.5); LYMPHOCYTES % (AUTO) 27.6 % (20.5-51.5); MEAN CORPUSCULAR HEMOGLOBIN 26 pg (27-31); MEAN CORPUSCULAR HGB CONC 32 % (32-36); MEAN CORPUSCULAR VOLUME 81 fL (79.0-98.0); MONOCYTES # (AUTO) 0.6 K/uL (0.0-1.0); MONOCYTES % (AUTO) 4.8 % (1.7-9.3); NEUTROPHILS # (AUTO) 8.7 K/uL (1.8-7.7); NEUTROPHILS % (AUTO) 64.6 % (40.0-70.0); PLATELET COUNT (AUTO) 299 K/uL (130-430); RED BLOOD CELL COUNT(AUTO) 3.93 MIL/uL (4.2-6.2); RED CELL DISTRIBUTION WIDTH 19.8 % (9.0-15.0); WHITE BLOOD COUNT (AUTO) 13.4 K/uL (4.8-10.8)
[2018-04-30 22:41] LABS: ALBUMIN 3.7 g/dL (3.4-4.8); CALCIUM 8.6 mg/dL (8.4-11.0); CREATININE 0.82 mg/dL (0.55-1.30); PHOSPHORUS 3.4 mg/dL (2.7-4.5); POTASSIUM 3.4 mmol/L (3.5-5.1); TOTAL BILIRUBIN 0.3 mg/dL (0.0-1.0)
[2018-04-30] MEDS ORDERED: MAGNESIUM SULFATE 1 GM in NS 100 ML IV ONE (22:45)
[2018-04-30] MEDS ORDERED: KETOROLAC TROMETHAMINE 30 MG VIAL IVP ONE (22:45)
[2018-04-30] MEDS ORDERED: MAGNESIUM SULFATE 1 GM/2 ML VIAL ONE (23:11)
[2018-05-01] MEDS ORDERED: MORPHINE 4 MG/ML INJ. SYRINGE IVP ONE
[2018-05-01] MEDS ORDERED: DIPHENHYDRAMINE INJ 50 MG/ML VIAL IVP ONE (00:45)
[2018-05-01 00:49] VITALS: BP_SYST 154
== END 2018-05-01 00:49 | disposition home or self-care (01) ==
LOC: SED 21:03
DX: M79.671 Pain in right foot (principal); D64.9 Anemia, unspecified; M62.838 Other muscle spasm; N15.8 Other specified renal tubulo-interstitial diseases; E83.42 Hypomagnesemia; J44.9 Chronic obstructive pulmonary disease, unspecified; I10 Essential (primary) hypertension; F41.9 Anxiety disorder, unspecified; M79.7 Fibromyalgia; M10.9 Gout, unspecified; Z88.0 Allergy status to penicillin; Z91.02 Food additives allergy status; Z79.899 Other long term (current) drug therapy
CPT/HCPCS: 36415; 80053; 83735; 84100; 85025; 96365; 96375; 96376; 99284; J1200 ×2; J1885; J2270 ×2; J3475; J7030

== ENCOUNTER 2018-05-07 11:54 | Outpatient (CLI) | payer OTHER | END 2018-05-07 20:09 | disposition home or self-care (01) | LOC: SMI 11:54 | PROVIDERS: ATTEND Internal Medicine | DX: M19.071 Primary osteoarthritis, right ankle and foot (principal); E03.9 Hypothyroidism, unspecified | CPT/HCPCS: 73721 ==

== ENCOUNTER 2018-05-13 14:04 | Emergency (ER) | payer OTHER ==
[~2018-05-13] VITALS: Ht 162.6 cm; Wt 108.9 kg
[2018-05-13 14:04] VITALS: BP_SYST 130
[2018-05-13] MEDS ORDERED: KETOROLAC TROMETHAMINE 30 MG VIAL IVP ONE (14:30)
[2018-05-13] MEDS ORDERED: NACL 0.9% 1,000 ML IV ONE (14:30)
[2018-05-13] MEDS ORDERED: DIPHENHYDRAMINE INJ 50 MG/ML VIAL IVP ONE (14:30)
[2018-05-13 14:31] LABS: BASOPHILS # (AUTO) 0.1 K/uL (0.0-0.2); BASOPHILS % (AUTO) 0.9 % (0.0-2.0); EOSINOPHILS # (AUTO) 0.2 K/uL (0.0-0.4); EOSINOPHILS % (AUTO) 1.8 % (0.0-4.0); HEMATOCRIT 40.7 % (36-48); LYMPHOCYTES # (AUTO) 2.6 K/uL (1.0-5.5); LYMPHOCYTES % (AUTO) 25.1 % (20.5-51.5); MEAN CORPUSCULAR HEMOGLOBIN 26 pg (27-31); MEAN CORPUSCULAR HGB CONC 32 % (32-36); MEAN CORPUSCULAR VOLUME 82 fL (79.0-98.0); MONOCYTES # (AUTO) 0.3 K/uL (0.0-1.0); MONOCYTES % (AUTO) 3.4 % (1.7-9.3); NEUTROPHILS % (AUTO) 68.8 % (40.0-70.0); PLATELET COUNT (AUTO) 398 K/uL (130-430); RED BLOOD CELL COUNT(AUTO) 4.97 MIL/uL (4.2-6.2); RED CELL DISTRIBUTION WIDTH 19.5 % (9.0-15.0); WHITE BLOOD COUNT (AUTO) 10.2 K/uL (4.8-10.8)
[2018-05-13 14:45] LABS: CALCIUM 9.5 mg/dL (8.4-11.0); CREATININE 0.98 mg/dL (0.55-1.30); POTASSIUM 3.8 mmol/L (3.5-5.1)
[2018-05-13 14:50] LABS: ALBUMIN 4.2 g/dL (3.4-4.8); TOTAL BILIRUBIN 0.5 mg/dL (0.0-1.0)
[2018-05-13] MEDS ORDERED: MAGNESIUM SULFATE 1 GM/2 ML VIAL IVP ONE (15:00)
[2018-05-13] MEDS ORDERED: MORPHINE 4 MG/ML INJ. SYRINGE IVP ONE (15:30)
[2018-05-13] MEDS ORDERED: LORazepam 2 MG/ML VIAL (FOR ER USE) IVP ONE (16:00)
[2018-05-13] MEDS ORDERED: PREDNISONE 20 MG TABLET PO ONE (16:30)
[2018-05-13 16:57] VITALS: BP_SYST 130
== END 2018-05-13 16:56 | disposition home or self-care (01) ==
LOC: SED 14:04
DX: E83.42 Hypomagnesemia (principal); G89.29 Other chronic pain; M79.671 Pain in right foot; J44.9 Chronic obstructive pulmonary disease, unspecified; I10 Essential (primary) hypertension; F41.9 Anxiety disorder, unspecified; M79.7 Fibromyalgia; Z90.710 Acquired absence of both cervix and uterus; Z88.0 Allergy status to penicillin; Z91.018 Allergy to other foods; Z79.899 Other long term (current) drug therapy
CPT/HCPCS: 36415; 80053; 83735; 84100; 84311; 85025; 96365; 96366; 96375; 99285; J1200; J1885; J2060; J2270; J3475; J7030; J7512

== ENCOUNTER 2018-05-23 14:43 | Emergency (ER) | payer OTHER ==
[~2018-05-23] VITALS: Ht 162.6 cm; Wt 108.9 kg
[2018-05-23] MEDS ORDERED: NACL 0.9% 1,000 ML IV ONE (14:49)
--- NOTE | 2018-05-23 14:49 | NUR ---
Patient to ER bed 7 to gown for evaluation. Side rails up.
[2018-05-23 14:54] VITALS: BP_SYST 143
--- NOTE | 2018-05-23 14:54 | NUR ---
ER at bedside examining patient.
[2018-05-23 14:59] LABS: BILIRUBIN,URINE NEGATIVE (NEGATIVE); BLOOD, URINE NEGATIVE (NEGATIVE); CLARITY/URINE CLEAR (CLEAR); COLOR,URINE YELLOW (YELLOW); GLUCOSE,URINE NEGATIVE (NEGATIVE); KETONES,URINE NEGATIVE (NEGATIVE); LEUKOCYTE ESTERASE ,URINE NEGATIVE (NEGATIVE); NITRITE, URINE NEGATIVE (NEGATIVE); PROTEIN URINE NEGATIVE (NEGATIVE); UROBILINOGEN,URINE 0.2 (0.2-1.0)
[2018-05-23] MEDS ORDERED: ONDANSETRON HCL 4 MG/2 ML VIAL IVP ONE (15:00)
[2018-05-23] MEDS ORDERED: MAGNESIUM SULFATE 1 GM in NS 50 ML IV ONE (15:00)
[2018-05-23] MEDS ORDERED: DIPHENHYDRAMINE INJ 50 MG/ML VIAL IVP ONE ×2 (15:00→16:45)
[2018-05-23] MEDS ORDERED: MORPHINE 4 MG/ML INJ. SYRINGE IVP ONE ×2 (15:00→16:45)
--- NOTE | 2018-05-23 15:08 | NUR ---
Hydration was given to pt, tolerated well
[2018-05-23] MEDS ORDERED: MAGNESIUM SULFATE 1 GM/2 ML VIAL ONE (15:13)
[2018-05-23 15:23] LABS: EOSINOPHILS # (AUTO) 0.1 K/uL (0.0-0.4)
--- NOTE | 2018-05-23 15:26 | NUR ---
Pain medication was given to pt, tolerated well
[2018-05-23 15:29] LABS: BASOPHILS # (AUTO) 0.2 K/uL (0.0-0.2); BASOPHILS % (AUTO) 1.7 % (0.0-2.0); EOSINOPHILS % (AUTO) 0.8 % (0.0-4.0); HEMATOCRIT 41.7 % (36-48); HEMOGLOBIN 13.6 g/dL (12.0-16.0); LYMPHOCYTES # (AUTO) 2.5 K/uL (1.0-5.5); LYMPHOCYTES % (AUTO) 17.8 % (20.5-51.5); MEAN CORPUSCULAR HEMOGLOBIN 27 pg (27-31); MEAN CORPUSCULAR HGB CONC 33 % (32-36); MEAN CORPUSCULAR VOLUME 83 fL (79.0-98.0); MONOCYTES # (AUTO) 0.4 K/uL (0.0-1.0); MONOCYTES % (AUTO) 2.8 % (1.7-9.3); NEUTROPHILS # (AUTO) 10.9 K/uL (1.8-7.7); NEUTROPHILS % (AUTO) 76.9 % (40.0-70.0); PLATELET COUNT (AUTO) 430 K/uL (130-430); RED BLOOD CELL COUNT(AUTO) 5.05 MIL/uL (4.2-6.2); RED CELL DISTRIBUTION WIDTH 19.1 % (9.0-15.0); WHITE BLOOD COUNT (AUTO) 14.1 K/uL (4.8-10.8)
[2018-05-23 15:57] LABS: CALCIUM 9.6 mg/dL (8.4-11.0); CREATININE 0.9 mg/dL (0.55-1.30); POTASSIUM 3.8 mmol/L (3.5-5.1)
[2018-05-23 16:00] LABS: PROTHROMBIN TIME 9.9 SECS (9.5-12.5)
[2018-05-23 16:02] LABS: ALBUMIN 3.9 g/dL (3.4-4.8); PHOSPHORUS 2.7 mg/dL (2.7-4.5); TOTAL BILIRUBIN 0.6 mg/dL (0.0-1.0)
--- NOTE | 2018-05-23 17:36 | NUR ---
Pain medication was given to pt, tolerated well
[2018-05-23 18:51] VITALS: BP_SYST 121
--- NOTE | 2018-05-23 18:51 | NUR ---
Patient given written and verbal discharge instructions and verbalizes understanding. ER MD discussed with patient the results and treatment provided. Patient in stable condition. ID arm band removed. IV catheter removed intact and dressing applied, no active bleeding. No Rx given. Patient educated on pain management and to follow up with PMD. Pain Scale 0. Opportunity for questions provided and answered.
== END 2018-05-23 18:51 | disposition home or self-care (01) ==
LOC: SED 14:43
DX: S80.862A Insect bite (nonvenomous), left lower leg, initial encounter (principal); S80.861A Insect bite (nonvenomous), right lower leg, initial encounter; G89.29 Other chronic pain; E83.42 Hypomagnesemia; J44.9 Chronic obstructive pulmonary disease, unspecified; I10 Essential (primary) hypertension; F41.9 Anxiety disorder, unspecified; M79.7 Fibromyalgia; Z88.0 Allergy status to penicillin; Z91.018 Allergy to other foods; Z79.899 Other long term (current) drug therapy; W57.XXXA Bitten or stung by nonvenomous insect and other nonvenomous arthropods, initial encounter; Y93.89 Activity, other specified; Y92.89 Other specified places as the place of occurrence of the external cause; Y99.8 Other external cause status
CPT/HCPCS: 36415; 80053; 81003; 82550; 83735; 84100; 84484; 85025; 85610; 85730; 96365; 96374; 96375; 96376; 99284; J1200; J2270; J2405; J3475

== ENCOUNTER 2018-06-04 20:49 | Emergency (ER) | payer OTHER ==
[~2018-06-04] VITALS: Ht 162.6 cm; Wt 104.3 kg
[2018-06-04 20:55] VITALS: BP_SYST 150
[2018-06-04] MEDS ORDERED: NACL 0.9% 1,000 ML IV ONE (21:45)
[2018-06-04] MEDS ORDERED: KETOROLAC TROMETHAMINE 30 MG VIAL IVP ONE (22:15)
[2018-06-04] MEDS: MAGNESIUM SULFATE 1 GM/2 ML VIAL IVP ONE ×2 (22:16→22:26)
[2018-06-04 22:24] LABS: BASOPHILS # (AUTO) 0.1 K/uL (0.0-0.2); BASOPHILS % (AUTO) 0.9 % (0.0-2.0); EOSINOPHILS # (AUTO) 0.2 K/uL (0.0-0.4); EOSINOPHILS % (AUTO) 1.2 % (0.0-4.0); HEMATOCRIT 41.6 % (36-48); LYMPHOCYTES # (AUTO) 2.8 K/uL (1.0-5.5); LYMPHOCYTES % (AUTO) 20.7 % (20.5-51.5); MEAN CORPUSCULAR HEMOGLOBIN 26 pg (27-31); MEAN CORPUSCULAR HGB CONC 31 % (32-36); MEAN CORPUSCULAR VOLUME 84 fL (79.0-98.0); MONOCYTES # (AUTO) 0.4 K/uL (0.0-1.0); MONOCYTES % (AUTO) 3.1 % (1.7-9.3); NEUTROPHILS # (AUTO) 9.9 K/uL (1.8-7.7); NEUTROPHILS % (AUTO) 74.1 % (40.0-70.0); PLATELET COUNT (AUTO) 381 K/uL (130-430); RED BLOOD CELL COUNT(AUTO) 4.96 MIL/uL (4.2-6.2); RED CELL DISTRIBUTION WIDTH 17.9 % (9.0-15.0); WHITE BLOOD COUNT (AUTO) 13.4 K/uL (4.8-10.8)
[2018-06-04 22:43] LABS: CALCIUM 9.6 mg/dL (8.4-11.0); CREATININE 0.89 mg/dL (0.55-1.30); POTASSIUM 3.8 mmol/L (3.5-5.1)
[2018-06-04 22:52] LABS: ALBUMIN 4.1 g/dL (3.4-4.8); PHOSPHORUS 3.3 mg/dL (2.7-4.5); TOTAL BILIRUBIN 0.4 mg/dL (0.0-1.0)
[2018-06-04] MEDS ORDERED: DIPHENHYDRAMINE INJ 50 MG/ML VIAL IVP ONE (23:15)
[2018-06-04] MEDS ORDERED: MORPHINE 4 MG/ML INJ. SYRINGE IVP ONE (23:15)
[2018-06-05 00:25] VITALS: BP_SYST 116
== END 2018-06-05 00:25 | disposition home or self-care (01) ==
LOC: SED 20:49
DX: R25.2 Cramp and spasm (principal); E83.42 Hypomagnesemia
CPT/HCPCS: 36415; 80053; 83735; 84100; 85025; 96365; 96375; 99284; J1200; J1885; J2270; J3475; J7030

== ENCOUNTER 2018-06-12 15:46 | Emergency (ER) | payer OTHER ==
[~2018-06-12] VITALS: Ht 162.6 cm; Wt 106.6 kg
[2018-06-12 16:06] VITALS: BP_SYST 113
[2018-06-12 16:38] LABS: WHITE BLOOD COUNT (AUTO) 13.4 K/uL (4.8-10.8)
[2018-06-12 16:43] LABS: BASOPHILS # (AUTO) 0.1 K/uL (0.0-0.2); CALCIUM 9.3 mg/dL (8.4-11.0); CREATININE 0.8 mg/dL (0.55-1.30); EOSINOPHILS # (AUTO) 0.1 K/uL (0.0-0.4); EOSINOPHILS % (AUTO) 1.1 % (0.0-4.0); HEMATOCRIT 41.6 % (36-48); HEMOGLOBIN 13.1 g/dL (12.0-16.0); LYMPHOCYTES % (AUTO) 22.2 % (20.5-51.5); MEAN CORPUSCULAR HEMOGLOBIN 27 pg (27-31); MEAN CORPUSCULAR HGB CONC 31 % (32-36); MEAN CORPUSCULAR VOLUME 85 fL (79.0-98.0); MONOCYTES # (AUTO) 0.4 K/uL (0.0-1.0); NEUTROPHILS # (AUTO) 9.8 K/uL (1.8-7.7); NEUTROPHILS % (AUTO) 72.7 % (40.0-70.0); PLATELET COUNT (AUTO) 415 K/uL (130-430); POTASSIUM 4.1 mmol/L (3.5-5.1); RED BLOOD CELL COUNT(AUTO) 4.92 MIL/uL (4.2-6.2); RED CELL DISTRIBUTION WIDTH 17.9 % (9.0-15.0)
[2018-06-12 16:45] LABS: PROTHROMBIN TIME 9.9 SECS (9.5-12.5)
[2018-06-12 16:49] LABS: ALBUMIN 3.8 g/dL (3.4-4.8); TOTAL BILIRUBIN 0.4 mg/dL (0.0-1.0)
[2018-06-12] MEDS ORDERED: MORPHINE 4 MG/ML INJ. SYRINGE IVP ONE ×2 (18:00→19:45)
[2018-06-12] MEDS ORDERED: DIPHENHYDRAMINE INJ 50 MG/ML VIAL IVP ONE ×2 (18:00→19:45)
[2018-06-12] MEDS ORDERED: MAGNESIUM SULFATE 3 GM in D5W 100 ML IV ONE (18:15)
[2018-06-12] MEDS ORDERED: MAGNESIUM SULFATE 1 GM/2 ML VIAL ONE ×2 (18:27→18:29)
[2018-06-12] MEDS ORDERED: NS 500 ML IV ONE (19:00)
[2018-06-12 21:00] VITALS: BP_SYST 115
== END 2018-06-12 21:00 | disposition home or self-care (01) ==
LOC: SED 15:46
DX: E83.42 Hypomagnesemia (principal); J44.9 Chronic obstructive pulmonary disease, unspecified; I10 Essential (primary) hypertension; M10.9 Gout, unspecified; F41.9 Anxiety disorder, unspecified; M79.7 Fibromyalgia; Z90.710 Acquired absence of both cervix and uterus; Z88.0 Allergy status to penicillin; Z91.018 Allergy to other foods; Z79.899 Other long term (current) drug therapy
CPT/HCPCS: 36415; 80053; 83735; 85025; 85610; 96365; 96366; 96375; 96376; 99285; J1200; J2270; J3475; J7040

== ENCOUNTER 2018-06-13 18:24 | Emergency (ER) | payer OTHER ==
[~2018-06-13] VITALS: Ht 162.6 cm; Wt 108.9 kg
[2018-06-13 18:55] VITALS: BP_SYST 134
--- NOTE | 2018-06-13 19:00 | NUR ---
Patient to ER bed 4 to gown for evaluation. Side rails up. Report given to Kiley HUNG.
--- NOTE | 2018-06-13 19:10 | NUR ---
Patient AOx4, ambulatory, presents to ER with complaint of nausea and vomiting x2-3 hours. Patient states she also felt episode of weakness possibly due to her low magnesium level. Patient states she took Zofran but vomited right after taking it. 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 Significant other at bedside.
--- NOTE | 2018-06-13 19:25 | NUR ---
# 20 gauge angiocath placed to LAC. Use of asceptic technique. Opsite placed over site. Blood return noted. Blood for lab drawn from site. Flushed with 10 cc of normal saline. No evidence of infiltration noted. Patient tolerated well.
[2018-06-13 19:26] LABS: BASOPHILS # (AUTO) 0.1 K/uL (0.0-0.2); BASOPHILS % (AUTO) 0.9 % (0.0-2.0); EOSINOPHILS # (AUTO) 0.2 K/uL (0.0-0.4); EOSINOPHILS % (AUTO) 1.7 % (0.0-4.0); HEMATOCRIT 42.3 % (36-48); HEMOGLOBIN 13.2 g/dL (12.0-16.0); LYMPHOCYTES # (AUTO) 2.5 K/uL (1.0-5.5); MEAN CORPUSCULAR HEMOGLOBIN 26 pg (27-31); MEAN CORPUSCULAR HGB CONC 31 % (32-36); MEAN CORPUSCULAR VOLUME 84 fL (79.0-98.0); MONOCYTES # (AUTO) 0.7 K/uL (0.0-1.0); MONOCYTES % (AUTO) 5.3 % (1.7-9.3); NEUTROPHILS # (AUTO) 9.7 K/uL (1.8-7.7); NEUTROPHILS % (AUTO) 73.1 % (40.0-70.0); PLATELET COUNT (AUTO) 417 K/uL (130-430); RED BLOOD CELL COUNT(AUTO) 5.02 MIL/uL (4.2-6.2); RED CELL DISTRIBUTION WIDTH 18.1 % (9.0-15.0); WHITE BLOOD COUNT (AUTO) 13.2 K/uL (4.8-10.8)
[2018-06-13 19:33] LABS: CALCIUM 9.6 mg/dL (8.4-11.0); CREATININE 0.94 mg/dL (0.55-1.30); POTASSIUM 3.5 mmol/L (3.5-5.1)
[2018-06-13 19:37] LABS: ALBUMIN 3.9 g/dL (3.4-4.8); TOTAL BILIRUBIN 0.4 mg/dL (0.0-1.0)
--- NOTE | 2018-06-13 19:55 | NUR ---
ER MD Polo at bedside for medical evaluation.
[2018-06-13] MEDS ORDERED: LORazepam 2 MG/ML VIAL IVP ONE (20:00)
[2018-06-13] MEDS ORDERED: ONDANSETRON HCL 4 MG/2 ML VIAL IVP ONE ×2 (20:00→21:15)
[2018-06-13] MEDS ORDERED: NACL 0.9% 1,000 ML IV ONE (20:00)
[2018-06-13] MEDS ORDERED: MORPHINE 4 MG/ML INJ. SYRINGE IVP ONE ×2 (20:00→21:15)
[2018-06-13] MEDS ORDERED: LORazepam 2 MG/ML VIAL (FOR ER USE) ONE (20:13)
--- NOTE | 2018-06-13 20:35 | NUR ---
No adverse reactions noted after medication administration. Will continue to monitor.
[2018-06-13] MEDS ORDERED: DIPHENHYDRAMINE INJ 50 MG/ML VIAL IVP ONE ×2 (21:00→22:45)
[2018-06-13] MEDS ORDERED: MAGNESIUM SULFATE 1 GM in NS 100 ML IV ONE (21:00)
[2018-06-13] MEDS ORDERED: MAGNESIUM SULFATE 1 GM/2 ML VIAL ONE (21:01)
[2018-06-13] MEDS ORDERED: DIPHENHYDRAMINE INJ 50 MG/ML VIAL ONE (21:08)
[2018-06-13] MEDS ORDERED: KETOROLAC TROMETHAMINE 15 MG VIAL IVP ONE (22:30)
[2018-06-13 23:00] VITALS: BP_SYST 128
--- NOTE | 2018-06-13 23:00 | NUR ---
Patient given written and verbal discharge instructions and verbalizes understanding. ER MD discussed with patient the results and treatment provided. Patient in stable condition. ID arm band removed. IV catheter removed intact and dressing applied, no active bleeding. No Rx given. Patient educated on pain management and to follow up with PMD. Pain Scale 2/10. Opportunity for questions provided and answered.
== END 2018-06-13 23:00 | disposition home or self-care (01) ==
LOC: SED 18:24
DX: R11.2 Nausea with vomiting, unspecified (principal); E83.42 Hypomagnesemia; G89.29 Other chronic pain; M79.605 Pain in left leg; M79.604 Pain in right leg; J44.9 Chronic obstructive pulmonary disease, unspecified; I10 Essential (primary) hypertension; M10.9 Gout, unspecified; M79.7 Fibromyalgia; Z79.899 Other long term (current) drug therapy; Z88.0 Allergy status to penicillin; Z91.018 Allergy to other foods
CPT/HCPCS: 36415; 80053; 83690; 83735; 85025; 96361; 96365; 96375; 96376; 99285; J1200; J1885; J2060; J2270; J2405; J3475; J7030

== ENCOUNTER 2018-06-15 18:33 | Inpatient (IN) | payer OTHER ==
[~2018-06-15] VITALS: Ht 162.6 cm; Wt 106.6 kg
[2018-06-15 18:42] VITALS: BP_SYST 132
--- NOTE | 2018-06-15 18:47 | NUR ---
Patient triaged and placed in waiting room. VSS and patient appears in no acute distress at this time. Accompanied by Cousin, awaiting available bed, and MD notified of need for MSE.
--- NOTE | 2018-06-15 19:20 | NUR ---
Patient aao X4 Sitting in bed c/o multiple symtoms of " heavy" feeling in bilateral axillary areas with generalized weakness and nausea/ vomiting x 4 days. Patient not actively vomiting at this time. Vital signs within normal limits. Will continue to monitor. No acute distress noted at this time.
[2018-06-15] MEDS ORDERED: NACL 0.9% 1,000 ML IV ONE (20:41)
[2018-06-15] MEDS ORDERED: ONDANSETRON HCL 4 MG/2 ML VIAL IVP ONE (20:45)
[2018-06-15] MEDS ORDERED: METOCLOPRAMIDE HCL 10 MG/2 ML VIAL IVP ONE (20:45)
[2018-06-15] MEDS ORDERED: DIPHENHYDRAMINE INJ 50 MG/ML VIAL IVP ONE (20:45)
[2018-06-15] MEDS ORDERED: MORPHINE SULFATE 10 MG/ML VIAL IVP ONE (20:45)
--- NOTE | 2018-06-15 20:50 | NUR ---
ER at bedside examining patient.
--- NOTE | 2018-06-15 21:15 | NUR ---
Attempted IV 3 times. Informed Charge nurse.
--- NOTE | 2018-06-15 21:30 | NUR ---
Charge nurse at bedside attempting IV start at this time.
--- NOTE | 2018-06-15 22:00 | NUR ---
ABHILASH Andino at bedside attempting IV at this time.
--- NOTE | 2018-06-15 22:27 | NUR ---
Patient laughing at bedside with cousin, no acute distress noted. Medications given by ABHILASH Andino. Patient resting at this time, vital signs within normal limits.
[2018-06-15 22:38] LABS: BASOPHILS # (AUTO) 0.1 K/uL (0.0-0.2); BASOPHILS % (AUTO) 0.5 % (0.0-2.0); EOSINOPHILS # (AUTO) 0.1 K/uL (0.0-0.4); HEMATOCRIT 37.5 % (36-48); HEMOGLOBIN 11.8 g/dL (12.0-16.0); LYMPHOCYTES # (AUTO) 2.6 K/uL (1.0-5.5); LYMPHOCYTES % (AUTO) 19.4 % (20.5-51.5); MEAN CORPUSCULAR HEMOGLOBIN 27 pg (27-31); MEAN CORPUSCULAR HGB CONC 32 % (32-36); MEAN CORPUSCULAR VOLUME 84 fL (79.0-98.0); MONOCYTES # (AUTO) 0.4 K/uL (0.0-1.0); MONOCYTES % (AUTO) 2.9 % (1.7-9.3); NEUTROPHILS # (AUTO) 10.4 K/uL (1.8-7.7); NEUTROPHILS % (AUTO) 76.2 % (40.0-70.0); PLATELET COUNT (AUTO) 364 K/uL (130-430); RED BLOOD CELL COUNT(AUTO) 4.44 MIL/uL (4.2-6.2); RED CELL DISTRIBUTION WIDTH 17.6 % (9.0-15.0); WHITE BLOOD COUNT (AUTO) 13.6 K/uL (4.8-10.8)
--- NOTE | 2018-06-15 22:49 | NUR ---
Medication reconciliation completed with information provided by Patient: Madelin Herrera. Any prior medication reconciliation on file was reviewed and corrected.
[2018-06-15 23:14] LABS: CALCIUM 9.1 mg/dL (8.4-11.0); POTASSIUM 3.5 mmol/L (3.5-5.1)
[2018-06-15 23:18] LABS: ALBUMIN 3.7 g/dL (3.4-4.8); C-REACTIVE PROTEIN QUANT 2.7 mg/dL (0-0.5); PHOSPHORUS 3.3 mg/dL (2.7-4.5); TOTAL BILIRUBIN 0.7 mg/dL (0.0-1.0)
[2018-06-15 23:24] LABS: BILIRUBIN,URINE NEGATIVE (NEGATIVE); BLOOD, URINE NEGATIVE (NEGATIVE); CLARITY/URINE CLEAR (CLEAR); COLOR,URINE YELLOW (YELLOW); GLUCOSE,URINE NEGATIVE (NEGATIVE); KETONES,URINE NEGATIVE (NEGATIVE); LEUKOCYTE ESTERASE ,URINE NEGATIVE (NEGATIVE); NITRITE, URINE NEGATIVE (NEGATIVE); PROTEIN URINE NEGATIVE (NEGATIVE); UROBILINOGEN,URINE 0.2 (0.2-1.0)
[2018-06-15 23:39] LABS: ERYTHROCYTE SEDIMENTATION RATE 24 MM/HR (0-20)
[2018-06-15 23:44] LABS: BENZODIAZEPINE, URINE POSITIVE (NEG <=150); CANNABINOID, URINE POSITIVE (NEG <=50); OPIATE, URINE POSITIVE (NEG <=100)
[2018-06-15 23:45] LABS: BARBITURATE, URINE NEGATIVE (NEG <=200); COCAINE, URINE NEGATIVE (NEG <=150); METHAMPHETAMINES SCREEN,URINE NEGATIVE (NEG <=500); PHENCYCLIDINE SCREEN,URINE NEGATIVE (NEG <=25); UR TRICYCLIC ANTIDEPRESSANTS NEGATIVE (NEG <=300); URINE AMPHETAMINE NEGATIVE (NEG <=500); URINE METHADONE NEGATIVE (NEG <=200); URINE OXYCODONE SCREEN NEGATIVE (NEG <=100); URINE PROPOXYPHENE SCREEN NEGATIVE (NEG <=300)
[2018-06-15] MEDS ORDERED: MAGNESIUM SULFATE 50 ML IV ONE (23:45)
[2018-06-16] MEDS ORDERED: POTASSIUM CHLORIDE 20 MEQ TAB.PRT.SR PO ONE
[2018-06-16] MEDS ORDERED: ACETAMINOPHEN 325 MG TABLET PO PRN
[2018-06-16] MEDS ORDERED: MAGNESIUM SULFATE 4 GM in D5W 250 ML IV ONE ×2
--- NOTE | 2018-06-16 00:24 | NUR ---
Patient will be admitted to care of Dr. Mota. Admitted to Tele unit. Will go to room 119. Belongings list completed. Summary report printed. Report will be given at bedside.
--- NOTE | 2018-06-16 00:24 | NUR ---
ADMISSION NOTE Received patient from ER via marie, received report from GARLAND HUNG. Patient admitted with diagnosis of HYPOMAGNESEMIA. Patient oriented to hospital routine, call light, toileting and safety-patient verbalized understanding.
[2018-06-16 00:37] VITALS: BP_SYST 125
--- NOTE | 2018-06-16 01:10 | NUR ---
Initial RN Notes Received pt from ED. Pt AAOx4. VSS. No s/s distress noted. IVF infusing R. pinky 22G clear, patent. Pt c/o generalized aching pain 02/14. Will medicate as needed. Allergy band on. Call light within reach. Will continue to monitor.
--- NOTE | 2018-06-16 01:30 | NUR ---
Pain mgmt Pt medicated for c/o 02/14 generalize pain more on her righter underarm, Morphine 2mg IVP and Zofran 4mg as needed. Call light within reach. To monitor.
[2018-06-16] MEDS: ONDANSETRON HCL 4 MG/2 ML VIAL IVP PRN ×6 (01:39→21:49)
[2018-06-16] MEDS: DIPHENHYDRAMINE INJ 50 MG/ML VIAL IVP PRN ×6 (01:39→21:50)
[2018-06-16] MEDS: MORPHINE 2 MG/ML INJ. SYRINGE IVP PRN ×2 (01:41→05:47)
[2018-06-16] MEDS ORDERED: MAGNESIUM SULFATE 100 ML IV ONE (02:35)
--- NOTE | 2018-06-16 03:35 | NUR ---
Rounds Pt asleep. No s/s distress noted. Call light within reach. Mg sulfate infusing as ordered. To monitor.
--- NOTE | 2018-06-16 05:47 | NUR ---
Closing notes/Pain mgmt Pt AAOx4, no acute distress noted. Pt c/o 6/10 aching pain pt states more in the right underarm, medicated with Morphine 2mg IVP as needed and Zofran 4mg IVP. R. pinky IV clear, patent. No infiltration noted. Mg Sulfate still infusing. Call light within reach. Safety measures in place. To endorse to am nurse.
--- NOTE | 2018-06-16 07:55 | NUR ---
INITIAL NOTE PT SITTING UP IN BED, EATING BREAKFAST, AAOX4, NO S/S OF ACUTE DISTRESS OR PAIN. PT C/O OF FEELING WEAK, ENCOURAGED TO CALL FOR ASSISTANCE IF SHE NEEDS TO GET OUT OF BED, PT VERBALIZED UNDERSTANDING. IV NOTE TO RIGHT PINKY 22 GG SALINE LOCKED. BREATHING EVEN AND UNLABORED. PLAN OF CARE DISCUSSED, PT VERBALIZED UNDERSTANDING, SAFETY PRECAUTIONS IN PLACE, CALL LIGHT WITHIN REACH, WILL FOLLOW UP
[2018-06-16 08:07] VITALS: BP_SYST 112
[2018-06-16] MEDS: POTASSIUM CHLORIDE 20 MEQ TAB.PRT.SR PO SCH ×4 (08:54→20:09)
--- NOTE | 2018-06-16 09:50 | NUR ---
PAIN MANAGEMENT/ FLU VACCINE ADMINISTRATION PT C/O PAIN/DISCOMFORT 03/16 TO BILATERAL ARMS AND LEGS ADMINISTERED PAIN MEDICATION PER PAIN SCALE, PT ALSO REQUESTING ZOFRAN AND BENADRYL TO BE ADMINISTERED TOGETHER DUE TO SIDE EFFECTS. PT ENCOURAGED TO CALL FOR ASSISTANCE WHEN GETTING OUT OF BED, AND CALL LIGHT PLACED WITHIN REACH,
[2018-06-16] MEDS: MORPHINE 4 MG/ML INJ. SYRINGE IVP PRN ×4 (09:51→21:49)
--- NOTE | 2018-06-16 11:59 | NUR ---
ROUNDS PT LAYING IN BED, EYES CLOSED, RESTING. EVEN RISE AND FALL OF CHEST NOTED. CALL LIGHT WITHIN REACH, WILL FOLLOW UP
[2018-06-16 12:10] VITALS: BP_SYST 105
--- NOTE | 2018-06-16 13:32 | NUR ---
Case mgt: Met w/pt at bedside-she is usually independent with ADLs unless her fibromyalgia flares up, then she uses her FWW. Pt drives herself. F/U for dc planning as needed-PARAM HUNG
--- NOTE | 2018-06-16 13:50 | NUR ---
PAIN MANAGEMENT PT SITTING UP IN BED, TALKING ON PHONE, C/O PAIN 03/16, ADMINISTERED PAIN MEDICATION PER PAIN SCALE. PT ALSO REQUESTED ZOFRAN AND BENADRYL FOR SIDE EFFECTS. PT STATES SHE GOT UP EARLIER WAS ABLE TO WALK AROUND BED, BUT SHE WILL CALL FOR ASSISTANCE IF SHE NEEDS TO USE THE RESTROOM, CALL LIGHT WITHIN REACH, SAFETY PRECAUTIONS IN PLACE, WILL FOLLOW UP
[2018-06-16] MEDS ORDERED: SPIRONOLACTONE 50 MG TABLET (ALDACTONE) PO ONE (14:00)
[2018-06-16] MEDS: MORPHINE SULFATE 30 MG Immediate Release TABLET PO SCH ×2 (14:00→21:48)
[2018-06-16] MEDS: MAGNESIUM PO SCH ×3 (14:00→20:11)
[2018-06-16] MEDS ORDERED: aMILoride HCL 5 MG TABLET PO SCH (14:00)
[2018-06-16] MEDS ORDERED: MORPHINE SULFATE 30 MG Immediate Release TABLET PO ONE (14:00)
[2018-06-16] MEDS ORDERED: DULoxetine HCL 30 MG CAPSULE.DR (CYMBALTA) PO ONE (14:00)
[2018-06-16] MEDS ORDERED: LORazepam 1 MG TABLET PO ONE (14:00)
[2018-06-16] MEDS ORDERED: COLCHICINE 0.6 MG TABLET PO PRN (14:00)
[2018-06-16] MEDS ORDERED: CYCLOBENZAPRINE HCL 10 MG TABLET (FLEXERIL) PO ONE (14:30)
[2018-06-16] MEDS ORDERED: aMILoride HCL 5 MG TABLET PO ONE ×2 (14:45→15:00)
--- NOTE | 2018-06-16 14:50 | NUR ---
REFUSED MORPHINE PO, STATED SHE WOULD RATHER HAVE THE MORPHINE IV Q4, SEVERAL MEDICATIONS THAT WOUND DECREASE BLOOD PRESSURE HELD DUE TO DECREASED BLOOD PRESSURE 94/51, PT VERBALIZED UNDERSTANDING AND AGREEMENT.
[2018-06-16] MEDS: MULTIVITAMINS TAB 1 TABLET PO SCH ×2 (15:07→20:09)
--- NOTE | 2018-06-16 15:30 | NUR ---
DR HOLLY MAKING ROUNDS, WILL CARRY OUT ANY NEW ORDERS
[2018-06-16 16:29] VITALS: BP_SYST 115
[2018-06-16] MEDS: LR 1,000 ML IV SCH (17:45)
--- NOTE | 2018-06-16 17:45 | NUR ---
IV FLUID HANGED/ SCDS PLACED/ PAIN MANAGEMENT IV SITE TO RIGHT PINKY INTACT, PATENT, LR HANGED AT 70ML/HR, SCDS PLACED, AND PRN MEDICATION FOR PAIN MANAGEMENT PROVIDED. PT SITTING UP NOW, EATING DINNER. CALL LIGHT WITHIN REACH, WILL FOLLOW UP
--- NOTE | 2018-06-16 19:00 | NUR ---
CLOSING NOTE PT SITTING UP IN BED, WATCHING TV, AAOX4, NO S/S OF ACUTE DISTRESS OR PAIN. IVF INFUSING TO RIGHT PINKY AT ORDERED RATE. IV SITE PATENT AND INTACT, NO S/S OF INFILTRATION NOTED. ALL NEEDS ATTENDED TO THROUGHOUT SHIFT, SAFETY PRECAUTIONS MAINTAINED, REPORT GIVEN AT BEDSIDE TO RECEIVING RN JONA.
[2018-06-16 20:00] VITALS: BP_SYST 110
--- NOTE | 2018-06-16 20:00 | NUR ---
Initial Notes Received patient resting in bed, awake, alert, oriented. Patient denies any acute distress or pain at this time. Vital signs stable. Breathing is even and unlabored. IV site patent/clean/dry. Needs addressed. Educated patient regarding use of call light for assistance and fall precautions, patient verbalized understanding. Call light in hand, will continue to monitor.
[2018-06-16] MEDS: CYCLOBENZAPRINE HCL 10 MG TABLET (FLEXERIL) PO SCH (20:10)
[2018-06-16] MEDS: LORazepam 1 MG TABLET PO SCH (20:10)
[2018-06-16] MEDS: aMILoride HCL 5 MG TABLET PO SCH (20:15)
[2018-06-16] MEDS ORDERED: MORPHINE SULFATE 30 MG Immediate Release TABLET PO SCH (21:00)
--- NOTE | 2018-06-16 22:00 | NUR ---
Nursing Notes Patient resting in bed, watching TV. Patient denies any acute distress at this time. Medicated patient for pain per MD orders. Breathing is even and unlabored. IV site patent/clean/dry. Fall precautions in place, will continue to monitor.
[2018-06-17] VITALS: BP_SYST 135
--- NOTE | 2018-06-17 | NUR ---
Nursing Notes Patient resting in bed with eyes closed, easily aroused upon nurse entering room. Patient denies any acute distress or pain at this time. Breathing is even and unlabored. IV site patent/clean/dry. Needs addressed. Will continue to monitor.
[2018-06-17] MEDS: DIPHENHYDRAMINE INJ 50 MG/ML VIAL IVP PRN ×5 (01:51→18:10)
[2018-06-17] MEDS: ONDANSETRON HCL 4 MG/2 ML VIAL IVP PRN ×6 (01:51→22:07)
[2018-06-17] MEDS: MORPHINE 4 MG/ML INJ. SYRINGE IVP PRN ×6 (01:52→22:08)
--- NOTE | 2018-06-17 02:00 | NUR ---
Nursing Notes Patient resting in bed, awake. Patient denies any acute distress at this time. Medicated patient for pain per MD orders. Needs addressed. Call light in hand, fall precautions in place.
--- NOTE | 2018-06-17 04:22 | NUR ---
Nursing Notes Patient resting in bed with eyes closed. No acute distress noted. IV site patent/clean/dry. Fall precautions in place, will continue to monitor.
[2018-06-17] MEDS: MORPHINE SULFATE 30 MG Immediate Release TABLET PO SCH ×3 (05:44→22:17)
[2018-06-17] MEDS: LR 1,000 ML IV SCH (05:46)
--- NOTE | 2018-06-17 06:47 | NUR ---
Closing Notes Patient resting in bed with eyes closed, easily aroused. Patient denies any acute distress or pain at this time. Breathing is even and unlabored. IV site patent/clean/dry. Needs addressed throughout shift. Call light in hand, fall precautions in place. Will continue to monitor for changes and safety, and endorse all patient care/needs to oncoming nurse.
[2018-06-17 07:30] LABS: BASOPHILS % (AUTO) 0.4 % (0.0-2.0); EOSINOPHILS # (AUTO) 0.3 K/uL (0.0-0.4); HEMATOCRIT 38.3 % (36-48); HEMOGLOBIN 12.2 g/dL (12.0-16.0); LYMPHOCYTES # (AUTO) 2.9 K/uL (1.0-5.5); LYMPHOCYTES % (AUTO) 30.4 % (20.5-51.5); MEAN CORPUSCULAR HEMOGLOBIN 27 pg (27-31); MEAN CORPUSCULAR HGB CONC 32 % (32-36); MEAN CORPUSCULAR VOLUME 86 fL (79.0-98.0); MONOCYTES # (AUTO) 0.6 K/uL (0.0-1.0); MONOCYTES % (AUTO) 6.1 % (1.7-9.3); NEUTROPHILS # (AUTO) 5.7 K/uL (1.8-7.7); NEUTROPHILS % (AUTO) 60.1 % (40.0-70.0); PLATELET COUNT (AUTO) 333 K/uL (130-430); RED BLOOD CELL COUNT(AUTO) 4.49 MIL/uL (4.2-6.2); RED CELL DISTRIBUTION WIDTH 17.2 % (9.0-15.0); WHITE BLOOD COUNT (AUTO) 9.5 K/uL (4.8-10.8)
[2018-06-17 08:10] VITALS: BP_SYST 138
--- NOTE | 2018-06-17 08:10 | NUR ---
AM ASSESSMENT PT IS AA/O X 4, SPEAKS MALAGASY AND IS COOPERATIVE. PT'S PRIMARY CONCERN AT THIS POINT IS PAIN MANAGEMENT R/T FIBROMYALGIA: PLAN OF CARE DISCUSSED AND AGREED UPON PERTAINING ADMINISTRATION SCHEDULE OR PRN MEDICATIONS. BED IN LOWEST POSITION, PT DEMONSTRATED ABILITY TO USE CALL LIGHT WHICH IS WITHIN HER REACH.
[2018-06-17 08:11] LABS: ALBUMIN 3.3 g/dL (3.4-4.8); C-REACTIVE PROTEIN QUANT 4.1 mg/dL (0-0.5); CALCIUM 9.2 mg/dL (8.4-11.0); CREATININE 1.19 mg/dL (0.55-1.30); FREE T4 (FREE THYROXINE) 0.8 ng/dL (0.6-1.6); POTASSIUM 4.2 mmol/L (3.5-5.1); THYROID STIMULATING HORMONE 0.71 uIu/mL (0.34-4.82); TOTAL BILIRUBIN 0.6 mg/dL (0.0-1.0)
[2018-06-17] MEDS ORDERED: SPIRONOLACTONE 50 MG TABLET (ALDACTONE) PO SCH (09:00)
[2018-06-17] MEDS ORDERED: DULoxetine HCL 30 MG CAPSULE.DR (CYMBALTA) PO SCH (09:00)
[2018-06-17] MEDS: POTASSIUM CHLORIDE 20 MEQ TAB.PRT.SR PO SCH ×4 (09:59→20:59)
[2018-06-17] MEDS: LORazepam 1 MG TABLET PO SCH ×2 (10:00→21:00)
--- NOTE | 2018-06-17 10:00 | NUR ---
ROUNDS/PAIN MANAGEMENT PT SITTING UP IN BED, A/O X 4, COMPLAINING OF LE PAIN 04/16. MORPHINE 4MG ADMINISTERED PER PRN ORDERS
[2018-06-17] MEDS: MULTIVITAMINS TAB 1 TABLET PO SCH ×3 (10:01→21:00)
[2018-06-17] MEDS: CYCLOBENZAPRINE HCL 10 MG TABLET (FLEXERIL) PO SCH ×2 (10:01→21:00)
[2018-06-17] MEDS: MAGNESIUM PO SCH ×4 (10:02→21:00)
[2018-06-17] MEDS: aMILoride HCL 5 MG TABLET PO SCH ×2 (10:03→21:00)
--- NOTE | 2018-06-17 11:10 | NUR ---
DC PLANNING Called & spoke w Dr Mota to discuss dc plan. States plan for dc home today if stable, coming to eval pt later today.
--- NOTE | 2018-06-17 12:00 | NUR ---
RN ROUNDS PT SITTING UP IN BED USING HER MOBILE PHONE, STATED PAIN MANAGEMENT IS EFFECTIVE.
[2018-06-17 12:57] VITALS: BP_SYST 125
--- NOTE | 2018-06-17 14:45 | NUR ---
DR. HOLLY AT BEDSIDE/OK TO D/C AFTER MAG RIDER INFUSION
[2018-06-17] MEDS ORDERED: MAGNESIUM SULFATE 4 GM in D5W 250 ML IV ONE (15:00)
--- NOTE | 2018-06-17 15:06 | NUR ---
Dietitian Recommendations *Recommend continuing regular diet per MD. *Encourage pt to increase PO intake. Please see Nutritional Assessment for details. VIRY, RD
[2018-06-17 16:28] VITALS: BP_SYST 101
--- NOTE | 2018-06-17 18:00 | NUR ---
RN ROUNDS PT SITTING UP IN BED, COMPLETING DINNER, NO COMPLAINT OF PAIN.
--- NOTE | 2018-06-17 18:57 | NUR ---
CLOSING NOTE PT SITTING UP IN BED, STATED PAIN MANAGEMENT WAS EFFECTIVE WITH A CURRENT PAIN OF 4/10.
--- NOTE | 2018-06-17 19:20 | NUR ---
OPENING NOTE Received report from Sunday. Patient resting in bed awake, alert, oriented x4. Breathing unlabored and even on room air. No signs of distress, no needs at this time. Fall and safety precautions in place. Bed in lowest position, brake on, call light within reach. IVF and IV mag infusing as ordered. Patient to be discharged home when mag is done infusing per discharge order. Will continue to monitor.
[2018-06-17] MEDS ORDERED: DIPHENHYDRAMINE INJ 50 MG/ML VIAL IVP PRN (21:15)
--- NOTE | 2018-06-17 21:17 | NUR ---
Spoke to Dr. Mota. Orders received. Will input and carry out. Benadryl dosage increased.
--- NOTE | 2018-06-17 22:18 | NUR ---
Med pass. Administered PRN morphine IVP, PRN zofran IVP, and PRN benadryl IVP as ordered. Educated patient on side effects and safety. Encouraged call for assist.
[2018-06-17 22:38] VITALS: BP_SYST 109
--- NOTE | 2018-06-17 23:05 | NUR ---
D/C Patient Patient given medication reconciliation form and D/C instructions. Exit Care provided. Patient verbalized understanding. MD discussed with patient the results and treatment provided. Ambulatory with steady gait for discharge to home. Patient in stable condition, ID band removed. IV catheter removed, intact and dressing applied, no active bleeding. Patient educated on pain management. All belongings sent with patient.
== END 2018-06-17 23:05 | disposition home or self-care (01) | DRG 641 ==
LOC: SED 18:33 → STU 23:54 → SMU 06-16 16:36
PROVIDERS: ADMIT Internal Medicine; ATTEND Internal Medicine
DX: E83.42 Hypomagnesemia (principal); Z68.41 Body mass index [BMI] 40.0-44.9, adult; B34.9 Viral infection, unspecified; E87.6 Hypokalemia; F41.9 Anxiety disorder, unspecified; I10 Essential (primary) hypertension; J44.9 Chronic obstructive pulmonary disease, unspecified; M79.7 Fibromyalgia; G89.4 Chronic pain syndrome; R73.03 Prediabetes; F32.9 Major depressive disorder, single episode, unspecified; N25.89 Other disorders resulting from impaired renal tubular function; E66.01 Morbid (severe) obesity due to excess calories; D50.9 Iron deficiency anemia, unspecified; E03.9 Hypothyroidism, unspecified; M11.20 Other chondrocalcinosis, unspecified site; Z88.0 Allergy status to penicillin; Z91.018 Allergy to other foods; Z91.048 Other nonmedicinal substance allergy status; Z79.899 Other long term (current) drug therapy
CPT/HCPCS: 36415; 71045; 80053; 80307; 81003; 82306; 83690-TC; 83735-TC; 84100-TC; 84439; 84443-TC; 85025; 85651-TC; 86140; 90656; 93005; 96365; 96375; 99285; J1200; J2270; J2274; J2405; J2765; J3475; J7030; J7060; J7120

== ENCOUNTER 2018-06-22 16:09 | Emergency (ER) | payer OTHER ==
[~2018-06-22] VITALS: Ht 162.6 cm; Wt 106.6 kg
[~2018-06-22 16:09] MED LIST changes: -MULT-1117 PO
[2018-06-22 16:13] VITALS: BP_SYST 117
[2018-06-22 16:50] LABS: CALCIUM 9.5 mg/dL (8.4-11.0); CREATININE 0.89 mg/dL (0.55-1.30); POTASSIUM 3.6 mmol/L (3.5-5.1)
[2018-06-22 16:54] LABS: ALBUMIN 3.9 g/dL (3.4-4.8); TOTAL BILIRUBIN 0.6 mg/dL (0.0-1.0)
[2018-06-22 17:10] LABS: BASOPHILS # (AUTO) 0.2 K/uL (0.0-0.2); BASOPHILS % (AUTO) 1.9 % (0.0-2.0); EOSINOPHILS # (AUTO) 0.1 K/uL (0.0-0.4); HEMATOCRIT 41.6 % (36-48); HEMOGLOBIN 13.2 g/dL (12.0-16.0); LYMPHOCYTES # (AUTO) 1.5 K/uL (1.0-5.5); LYMPHOCYTES % (AUTO) 11.9 % (20.5-51.5); MEAN CORPUSCULAR HEMOGLOBIN 27 pg (27-31); MEAN CORPUSCULAR HGB CONC 32 % (32-36); MEAN CORPUSCULAR VOLUME 85 fL (79.0-98.0); MONOCYTES # (AUTO) 0.4 K/uL (0.0-1.0); MONOCYTES % (AUTO) 3.2 % (1.7-9.3); NEUTROPHILS # (AUTO) 10.6 K/uL (1.8-7.7); PLATELET COUNT (AUTO) 443 K/uL (130-430); RED BLOOD CELL COUNT(AUTO) 4.88 MIL/uL (4.2-6.2); RED CELL DISTRIBUTION WIDTH 16.5 % (9.0-15.0); WHITE BLOOD COUNT (AUTO) 12.8 K/uL (4.8-10.8)
[2018-06-22 17:13] LABS: BILIRUBIN,URINE 1+ (NEGATIVE); BLOOD, URINE NEGATIVE (NEGATIVE); CLARITY/URINE SL CLOUDY (CLEAR); COLOR,URINE YELLOW (YELLOW); GLUCOSE,URINE NEGATIVE (NEGATIVE); KETONES,URINE NEGATIVE (NEGATIVE); LEUKOCYTE ESTERASE ,URINE 1+ (NEGATIVE); NITRITE, URINE NEGATIVE (NEGATIVE); PROTEIN URINE NEGATIVE (NEGATIVE); UROBILINOGEN,URINE 0.2 (0.2-1.0)
[2018-06-22 17:18] LABS: BACTERIA,URINE MODERATE /HPF (None Seen); RBC,URINE 0-3 /HPF (0-3)
[2018-06-22] MEDS ORDERED: NACL 0.9% 1,000 ML IV ONE (18:19)
[2018-06-22] MEDS ORDERED: METOCLOPRAMIDE HCL 10 MG/2 ML VIAL IVP ONE (18:30)
[2018-06-22] MEDS ORDERED: MORPHINE SULFATE 10 MG/ML VIAL IVP ONE (18:30)
[2018-06-22] MEDS ORDERED: ONDANSETRON HCL 4 MG/2 ML VIAL IVP ONE (18:30)
[2018-06-22] MEDS ORDERED: MAGNESIUM SULFATE 4 GM in D5W 250 ML IV ONE (18:30)
[2018-06-22] MEDS ORDERED: LORazepam 2 MG/ML VIAL (FOR ER USE) IVP ONE (18:30)
[2018-06-22] MEDS ORDERED: MAGNESIUM SULFATE 1 GM/2 ML VIAL ONE (18:57)
[2018-06-22] MEDS ORDERED: DIPHENHYDRAMINE INJ 50 MG/ML VIAL IVP ONE (20:30)
[2018-06-22] MEDS ORDERED: MORPHINE 2 MG/ML INJ. SYRINGE IVP ONE (23:00)
[2018-06-22 23:23] VITALS: BP_SYST 120
== END 2018-06-22 23:23 | disposition home or self-care (01) ==
LOC: SED 16:09
DX: E83.42 Hypomagnesemia (principal); G89.4 Chronic pain syndrome; R11.10 Vomiting, unspecified; J44.9 Chronic obstructive pulmonary disease, unspecified; I10 Essential (primary) hypertension; M10.9 Gout, unspecified; F41.9 Anxiety disorder, unspecified; M79.7 Fibromyalgia; Z90.710 Acquired absence of both cervix and uterus; Z98.890 Other specified postprocedural states; Z79.899 Other long term (current) drug therapy; Z88.0 Allergy status to penicillin; Z91.018 Allergy to other foods
CPT/HCPCS: 36415; 80053; 81000; 83690; 83735; 85025; 87086; 93005; 96361; 96365; 96366; 96375; 96376; 99285; J1200; J2060; J2270 ×2; J2405; J2765; J3475; J7030; J7060

== ENCOUNTER 2018-06-23 15:54 | Inpatient (IN) | payer OTHER ==
[~2018-06-23] VITALS: Ht 162.6 cm; Wt 106.6 kg
[2018-06-23 16:36] VITALS: BP_SYST 115
[2018-06-23 17:52] LABS: BASOPHILS # (AUTO) 0.1 K/uL (0.0-0.2); BASOPHILS % (AUTO) 0.7 % (0.0-2.0); EOSINOPHILS # (AUTO) 0.1 K/uL (0.0-0.4); HEMATOCRIT 38.9 % (36-48); HEMOGLOBIN 12.4 g/dL (12.0-16.0); LYMPHOCYTES # (AUTO) 2.3 K/uL (1.0-5.5); LYMPHOCYTES % (AUTO) 23.4 % (20.5-51.5); MEAN CORPUSCULAR HEMOGLOBIN 27 pg (27-31); MEAN CORPUSCULAR HGB CONC 32 % (32-36); MEAN CORPUSCULAR VOLUME 84 fL (79.0-98.0); MONOCYTES # (AUTO) 0.4 K/uL (0.0-1.0); MONOCYTES % (AUTO) 4.3 % (1.7-9.3); NEUTROPHILS # (AUTO) 7.1 K/uL (1.8-7.7); NEUTROPHILS % (AUTO) 70.6 % (40.0-70.0); PLATELET COUNT (AUTO) 381 K/uL (130-430); RED BLOOD CELL COUNT(AUTO) 4.63 MIL/uL (4.2-6.2); RED CELL DISTRIBUTION WIDTH 16.9 % (9.0-15.0)
[2018-06-23 18:10] LABS: CALCIUM 9.5 mg/dL (8.4-11.0); CREATININE 0.97 mg/dL (0.55-1.30); POTASSIUM 3.6 mmol/L (3.5-5.1)
[2018-06-23 18:14] LABS: ALBUMIN 3.8 g/dL (3.4-4.8); C-REACTIVE PROTEIN QUANT 3.3 mg/dL (0-0.5); TOTAL BILIRUBIN 0.5 mg/dL (0.0-1.0)
[2018-06-23] MEDS: ONDANSETRON HCL 4 MG/2 ML VIAL IVP PRN ×2 (18:52→23:31)
[2018-06-23] MEDS: LR 1,000 ML IV SCH (18:52)
[2018-06-23] MEDS: DIPHENHYDRAMINE INJ 50 MG/ML VIAL IVP PRN ×2 (18:55→23:31)
[2018-06-23] MEDS: MORPHINE 4 MG/ML INJ. SYRINGE IVP PRN ×2 (18:56→23:28)
[2018-06-23 19:16] LABS: ERYTHROCYTE SEDIMENTATION RATE 19 MM/HR (0-20)
[2018-06-23 20:00] VITALS: BP_SYST 137
[2018-06-23] MEDS ORDERED: MAGNESIUM SULFATE 50 ML IV ONE (20:30)
[2018-06-23] MEDS: MORPHINE SULFATE 30 MG Immediate Release TABLET PO SCH (21:00)
[2018-06-23] MEDS ORDERED: ZOLPIDEM TARTRATE 5 MG TABLET PO PRN (21:15)
[2018-06-23] MEDS: POTASSIUM CHLORIDE 20 MEQ TAB.PRT.SR PO SCH (21:26)
[2018-06-23] MEDS: LORazepam 1 MG TABLET PO SCH (21:26)
[2018-06-23] MEDS: CYCLOBENZAPRINE HCL 10 MG TABLET (FLEXERIL) PO SCH (21:26)
[2018-06-23] MEDS: CHOLECALCIFEROL (VITAMIN D-3) 400 UNIT TABLET PO SCH (21:26)
[2018-06-23] MEDS: aMILoride HCL 5 MG TABLET PO SCH (22:30)
[2018-06-24 00:27] VITALS: BP_SYST 105
[2018-06-24] MEDS: ZOLPIDEM TARTRATE 5 MG TABLET PO PRN ×2 (00:51→22:30)
[2018-06-24] MEDS: MORPHINE 4 MG/ML INJ. SYRINGE IVP PRN ×6 (03:38→23:56)
[2018-06-24] MEDS: ONDANSETRON HCL 4 MG/2 ML VIAL IVP PRN ×6 (03:38→23:48)
[2018-06-24] MEDS: LR 1,000 ML IV SCH ×3 (03:39→22:29)
[2018-06-24] MEDS: DIPHENHYDRAMINE INJ 50 MG/ML VIAL IVP PRN ×6 (03:39→23:48)
[2018-06-24 08:24] VITALS: BP_SYST 115
[2018-06-24] MEDS: POTASSIUM CHLORIDE 20 MEQ TAB.PRT.SR PO SCH ×3 (08:56→21:18)
[2018-06-24] MEDS: DULoxetine HCL 30 MG CAPSULE.DR (CYMBALTA) PO SCH (08:56)
[2018-06-24] MEDS: LORazepam 1 MG TABLET PO SCH ×2 (08:57→21:18)
[2018-06-24] MEDS: SPIRONOLACTONE 50 MG TABLET (ALDACTONE) PO SCH (08:57)
[2018-06-24] MEDS: CYCLOBENZAPRINE HCL 10 MG TABLET (FLEXERIL) PO SCH ×2 (08:57→21:18)
[2018-06-24] MEDS: MORPHINE SULFATE 30 MG Immediate Release TABLET PO SCH ×2 (08:58→21:00)
[2018-06-24] MEDS: CHOLECALCIFEROL (VITAMIN D-3) 400 UNIT TABLET PO SCH ×2 (08:58→21:18)
[2018-06-24] MEDS: MAGNESIUM CHLORIDE 64 MG TABLET.DR PO SCH ×4 (08:59→21:20)
[2018-06-24] MEDS: aMILoride HCL 5 MG TABLET PO SCH ×2 (09:00→21:20)
[2018-06-24 12:45] VITALS: BP_SYST 126
[2018-06-24 16:57] VITALS: BP_SYST 110
[2018-06-24] MEDS: ACYCLOVIR 400 MG TABLET PO SCH (19:57)
[2018-06-24 20:00] VITALS: BP_SYST 116
[2018-06-25] VITALS: BP_SYST 122
[2018-06-25] MEDS: ACYCLOVIR 400 MG TABLET PO SCH ×3 (03:39→19:48)
[2018-06-25] MEDS: MORPHINE 4 MG/ML INJ. SYRINGE IVP PRN ×6 (03:51→23:58)
[2018-06-25] MEDS: ONDANSETRON HCL 4 MG/2 ML VIAL IVP PRN ×5 (03:51→23:46)
[2018-06-25] MEDS: DIPHENHYDRAMINE INJ 50 MG/ML VIAL IVP PRN ×5 (03:51→21:56)
[2018-06-25 04:00] VITALS: BP_SYST 117
[2018-06-25 07:23] LABS: CREATININE 1.04 mg/dL (0.55-1.30); POTASSIUM 3.8 mmol/L (3.5-5.1)
[2018-06-25] MEDS: LR 1,000 ML IV SCH ×2 (08:26→22:08)
[2018-06-25] MEDS: CYCLOBENZAPRINE HCL 10 MG TABLET (FLEXERIL) PO SCH ×2 (08:32→20:51)
[2018-06-25] MEDS: DULoxetine HCL 30 MG CAPSULE.DR (CYMBALTA) PO SCH (08:33)
[2018-06-25] MEDS: LORazepam 1 MG TABLET PO SCH ×2 (08:33→20:51)
[2018-06-25] MEDS: CHOLECALCIFEROL (VITAMIN D-3) 400 UNIT TABLET PO SCH ×2 (08:34→20:51)
[2018-06-25] MEDS: POTASSIUM CHLORIDE 20 MEQ TAB.PRT.SR PO SCH ×3 (08:34→20:51)
[2018-06-25] MEDS: SPIRONOLACTONE 50 MG TABLET (ALDACTONE) PO SCH (08:35)
[2018-06-25] MEDS: aMILoride HCL 5 MG TABLET PO SCH ×2 (08:36→20:52)
[2018-06-25] MEDS: MAGNESIUM CHLORIDE 64 MG TABLET.DR PO SCH ×4 (08:37→20:51)
[2018-06-25] MEDS: MORPHINE SULFATE 30 MG Immediate Release TABLET PO SCH ×2 (08:37→21:00)
[2018-06-25 12:19] VITALS: BP_SYST 121
[2018-06-25] MEDS ORDERED: MAGNESIUM SULFATE 4 GM in D5W 250 ML IV ONE (13:00)
[2018-06-25 16:02] VITALS: BP_SYST 119
[2018-06-25 20:00] VITALS: BP_SYST 116
[2018-06-25] MEDS ORDERED: MAGNESIUM SULFATE 50 ML IV ONE (20:00)
[2018-06-25] MEDS: ZOLPIDEM TARTRATE 5 MG TABLET PO PRN (21:57)
[2018-06-26 03:40] VITALS: BP_SYST 128
[2018-06-26] MEDS: DIPHENHYDRAMINE INJ 50 MG/ML VIAL IVP PRN ×4 (03:46→22:14)
[2018-06-26] MEDS: ONDANSETRON HCL 4 MG/2 ML VIAL IVP PRN ×5 (03:46→20:54)
[2018-06-26] MEDS: MORPHINE 4 MG/ML INJ. SYRINGE IVP PRN ×5 (03:47→20:54)
[2018-06-26] MEDS: ACYCLOVIR 400 MG TABLET PO SCH ×3 (03:57→18:33)
[2018-06-26 08:00] VITALS: BP_SYST 123
[2018-06-26 08:27] LABS: BASOPHILS # (AUTO) 0.1 K/uL (0.0-0.2); BASOPHILS % (AUTO) 1.2 % (0.0-2.0); EOSINOPHILS # (AUTO) 0.4 K/uL (0.0-0.4); EOSINOPHILS % (AUTO) 4.7 % (0.0-4.0); HEMOGLOBIN 11.9 g/dL (12.0-16.0); LYMPHOCYTES # (AUTO) 2.9 K/uL (1.0-5.5); MEAN CORPUSCULAR HEMOGLOBIN 28 pg (27-31); MEAN CORPUSCULAR HGB CONC 33 % (32-36); MEAN CORPUSCULAR VOLUME 85 fL (79.0-98.0); MONOCYTES # (AUTO) 0.5 K/uL (0.0-1.0); MONOCYTES % (AUTO) 6.3 % (1.7-9.3); NEUTROPHILS # (AUTO) 3.9 K/uL (1.8-7.7); NEUTROPHILS % (AUTO) 50.8 % (40.0-70.0); PLATELET COUNT (AUTO) 345 K/uL (130-430); RED BLOOD CELL COUNT(AUTO) 4.23 MIL/uL (4.2-6.2); RED CELL DISTRIBUTION WIDTH 16.4 % (9.0-15.0); WHITE BLOOD COUNT (AUTO) 7.8 K/uL (4.8-10.8)
[2018-06-26 08:59] LABS: CALCIUM 9.1 mg/dL (8.4-11.0); CREATININE 1.1 mg/dL (0.55-1.30); FREE T4 (FREE THYROXINE) 0.5 ng/dL (0.6-1.6); POTASSIUM 3.8 mmol/L (3.5-5.1); THYROID STIMULATING HORMONE 0.73 uIu/mL (0.34-4.82)
[2018-06-26] MEDS: MORPHINE SULFATE 30 MG Immediate Release TABLET PO SCH ×2 (09:00→21:00)
[2018-06-26] MEDS: POTASSIUM CHLORIDE 20 MEQ TAB.PRT.SR PO SCH ×4 (10:07→20:58)
[2018-06-26] MEDS: CYCLOBENZAPRINE HCL 10 MG TABLET (FLEXERIL) PO SCH ×2 (10:08→20:59)
[2018-06-26] MEDS: DULoxetine HCL 30 MG CAPSULE.DR (CYMBALTA) PO SCH (10:08)
[2018-06-26] MEDS: SPIRONOLACTONE 50 MG TABLET (ALDACTONE) PO SCH (10:08)
[2018-06-26] MEDS: LORazepam 1 MG TABLET PO SCH ×2 (10:08→20:59)
[2018-06-26] MEDS: MAGNESIUM CHLORIDE 64 MG TABLET.DR PO SCH ×4 (10:09→21:00)
[2018-06-26] MEDS: aMILoride HCL 5 MG TABLET PO SCH ×2 (10:09→21:01)
[2018-06-26] MEDS ORDERED: CHOLECALCIFEROL (VITAMIN D3) 2,000 UNIT TABLET PO SCH (10:24)
[2018-06-26] MEDS ORDERED: CHOLECALCIFEROL (VITAMIN D3) 2,000 UNIT TABLET PO ONE (10:45)
[2018-06-26] MEDS ORDERED: MAGNESIUM SULFATE 50 ML IV ONE (11:45)
[2018-06-26 12:16] VITALS: BP_SYST 106
[2018-06-26 16:50] VITALS: BP_SYST 108
[2018-06-26 17:59] VITALS: BP_SYST 108
[2018-06-26] MEDS ORDERED: ACYC800T5 PO (18:17)
[2018-06-26 21:38] VITALS: BP_SYST 97
== END 2018-06-26 22:45 | disposition home or self-care (01) | DRG 866 ==
LOC: SMU 15:54 → STU 16:27
PROVIDERS: ADMIT Internal Medicine; ATTEND Internal Medicine
DX: B34.9 Viral infection, unspecified (principal); Z68.41 Body mass index [BMI] 40.0-44.9, adult; M11.20 Other chondrocalcinosis, unspecified site; M79.7 Fibromyalgia; E66.01 Morbid (severe) obesity due to excess calories; N25.89 Other disorders resulting from impaired renal tubular function; E87.6 Hypokalemia; E83.42 Hypomagnesemia; F32.9 Major depressive disorder, single episode, unspecified; F41.9 Anxiety disorder, unspecified; G89.4 Chronic pain syndrome; E03.9 Hypothyroidism, unspecified; Z79.899 Other long term (current) drug therapy; Z88.0 Allergy status to penicillin; Z88.8 Allergy status to other drugs, medicaments and biological substances; D50.9 Iron deficiency anemia, unspecified
CPT/HCPCS: 36415; 80048; 80053; 83735-TC; 84439; 84443-TC; 85025; 85651-TC; 86140; 87081; J1200; J2270; J2274; J2405; J3475; J7060; J7120

== ENCOUNTER 2018-06-28 19:59 | Inpatient (IN) | payer OTHER ==
[~2018-06-28] VITALS: Ht 162.6 cm; Wt 106.6 kg
[~2018-06-28 19:59] MED LIST changes: +ACYC800T5 PO
[2018-06-28 20:15] VITALS: BP_SYST 108
[2018-06-28] MEDS ORDERED: MAGNESIUM SULFATE 1 GM/2 ML VIAL IVP ONE (23:00)
[2018-06-28] MEDS ORDERED: ONDANSETRON HCL 4 MG/2 ML VIAL IVP ONE (23:00)
[2018-06-28] MEDS ORDERED: NACL 0.9% 1,000 ML IV ONE (23:00)
[2018-06-28 23:09] LABS: EOSINOPHILS # (AUTO) 0.1 K/uL (0.0-0.4); WHITE BLOOD COUNT (AUTO) 14.8 K/uL (4.8-10.8)
[2018-06-28] MEDS ORDERED: DIPHENHYDRAMINE INJ 50 MG/ML VIAL IVP ONE (23:15)
[2018-06-28] MEDS ORDERED: MORPHINE 4 MG/ML INJ. SYRINGE IVP ONE (23:15)
[2018-06-28] MEDS ORDERED: MAGNESIUM SULFATE 1 GM in NS 100 ML IV ONE (23:15)
[2018-06-28 23:17] LABS: CALCIUM 9.9 mg/dL (8.4-11.0); CREATININE 1.11 mg/dL (0.55-1.30); POTASSIUM 3.5 mmol/L (3.5-5.1)
[2018-06-28 23:23] LABS: ALBUMIN 4.2 g/dL (3.4-4.8); PHOSPHORUS 3.6 mg/dL (2.7-4.5); TOTAL BILIRUBIN 0.7 mg/dL (0.0-1.0)
[2018-06-28 23:24] LABS: BASOPHILS # (AUTO) 0.4 K/uL (0.0-0.2); BASOPHILS % (AUTO) 2.4 % (0.0-2.0); EOSINOPHILS % (AUTO) 0.5 % (0.0-4.0); HEMATOCRIT 46.8 % (36-48); HEMOGLOBIN 15.1 g/dL (12.0-16.0); LYMPHOCYTES # (AUTO) 3.3 K/uL (1.0-5.5); LYMPHOCYTES % (AUTO) 22.5 % (20.5-51.5); MEAN CORPUSCULAR HEMOGLOBIN 27 pg (27-31); MEAN CORPUSCULAR HGB CONC 32 % (32-36); MEAN CORPUSCULAR VOLUME 85 fL (79.0-98.0); MONOCYTES # (AUTO) 0.3 K/uL (0.0-1.0); NEUTROPHILS # (AUTO) 10.6 K/uL (1.8-7.7); NEUTROPHILS % (AUTO) 72.6 % (40.0-70.0); PLATELET COUNT (AUTO) 441 K/uL (130-430); RED BLOOD CELL COUNT(AUTO) 5.49 MIL/uL (4.2-6.2); RED CELL DISTRIBUTION WIDTH 16.4 % (9.0-15.0)
[2018-06-29] MEDS ORDERED: MAGNESIUM SULFATE 4 GM in D5W 250 ML IV ONE (00:30)
[2018-06-29] MEDS ORDERED: MORPHINE 2 MG/ML INJ. SYRINGE IVP PRN ×2 (00:30→02:00)
[2018-06-29] MEDS ORDERED: LR 1,000 ML IV ONE (00:30)
[2018-06-29 01:06] VITALS: BP_SYST 106
[2018-06-29] MEDS ORDERED: MAGNESIUM SULFATE 100 ML IV ONE (02:09)
[2018-06-29] MEDS: ONDANSETRON HCL 4 MG/2 ML VIAL IVP PRN ×5 (03:38→20:31)
[2018-06-29] MEDS: DIPHENHYDRAMINE INJ 50 MG/ML VIAL IVP PRN ×5 (03:38→20:31)
[2018-06-29] MEDS: MORPHINE 4 MG/ML INJ. SYRINGE IVP PRN ×5 (03:39→20:33)
[2018-06-29 08:30] VITALS: BP_SYST 105
[2018-06-29] MEDS ORDERED: POTASSIUM CHLORIDE 20 MEQ TAB.PRT.SR PO ONE (10:00)
[2018-06-29 12:51] VITALS: BP_SYST 102
[2018-06-29] MEDS ORDERED: MAGNESIUM CHLORIDE 64 MG TABLET.DR PO ONE (13:15)
[2018-06-29] MEDS ORDERED: SPIRONOLACTONE 50 MG TABLET (ALDACTONE) PO ONE (13:15)
[2018-06-29] MEDS ORDERED: LORazepam 1 MG TABLET PO ONE (13:15)
[2018-06-29] MEDS ORDERED: POTASSIUM CHLORIDE 20 MEQ TAB.PRT.SR PO SCH (13:15)
[2018-06-29] MEDS ORDERED: CYCLOBENZAPRINE HCL 10 MG TABLET (FLEXERIL) PO ONE (13:15)
[2018-06-29] MEDS ORDERED: MORPHINE SULFATE 30 MG Immediate Release TABLET PO ONE (13:15)
[2018-06-29] MEDS ORDERED: DULoxetine HCL 30 MG CAPSULE.DR (CYMBALTA) PO ONE (13:15)
[2018-06-29 14:05] LABS: BASOPHILS # (AUTO) 0.1 K/uL (0.0-0.2); BASOPHILS % (AUTO) 1.1 % (0.0-2.0); EOSINOPHILS # (AUTO) 0.2 K/uL (0.0-0.4); EOSINOPHILS % (AUTO) 2.1 % (0.0-4.0); HEMATOCRIT 39.9 % (36-48); HEMOGLOBIN 12.6 g/dL (12.0-16.0); LYMPHOCYTES # (AUTO) 2.3 K/uL (1.0-5.5); LYMPHOCYTES % (AUTO) 24.2 % (20.5-51.5); MEAN CORPUSCULAR HEMOGLOBIN 27 pg (27-31); MEAN CORPUSCULAR HGB CONC 32 % (32-36); MEAN CORPUSCULAR VOLUME 86 fL (79.0-98.0); MONOCYTES # (AUTO) 0.5 K/uL (0.0-1.0); MONOCYTES % (AUTO) 5.7 % (1.7-9.3); NEUTROPHILS # (AUTO) 6.3 K/uL (1.8-7.7); NEUTROPHILS % (AUTO) 66.9 % (40.0-70.0); PLATELET COUNT (AUTO) 365 K/uL (130-430); RED BLOOD CELL COUNT(AUTO) 4.63 MIL/uL (4.2-6.2); RED CELL DISTRIBUTION WIDTH 16.5 % (9.0-15.0); WHITE BLOOD COUNT (AUTO) 9.4 K/uL (4.8-10.8)
[2018-06-29 14:20] LABS: C-REACTIVE PROTEIN QUANT 2.2 mg/dL (0-0.5); CREATININE 1.06 mg/dL (0.55-1.30); POTASSIUM 3.4 mmol/L (3.5-5.1)
[2018-06-29] MEDS: POTASSIUM CHLORIDE 20 MEQ TAB.PRT.SR PO SCH ×3 (14:36→21:28)
[2018-06-29] MEDS: ACYCLOVIR 400 MG TABLET PO SCH ×4 (14:36→21:27)
[2018-06-29] MEDS: COLCHICINE 0.6 MG TABLET PO PRN (14:36)
[2018-06-29] MEDS ORDERED: POTASSIUM CHLORIDE 40 MEQ, MAGNESIUM SULFATE 4 GM, LIDOCAINE JECT 2% PF 100 MG 50 MG in... IV ONE ×4 (15:00)
[2018-06-29] MEDS: LR 1,000 ML IV SCH (15:51)
[2018-06-29 16:51] VITALS: BP_SYST 111
[2018-06-29] MEDS ORDERED: MAGNESIUM CHLORIDE 64 MG TABLET.DR PO SCH ×2 (17:00)
[2018-06-29] MEDS: MAGNESIUM CHLORIDE 64 MG TABLET.DR PO SCH ×2 (17:19→20:27)
[2018-06-29 20:00] VITALS: BP_SYST 121
[2018-06-29] MEDS: CHOLECALCIFEROL (VITAMIN D3) 2,000 UNIT TABLET PO SCH (20:26)
[2018-06-29] MEDS: CYCLOBENZAPRINE HCL 10 MG TABLET (FLEXERIL) PO SCH (20:26)
[2018-06-29] MEDS: LORazepam 1 MG TABLET PO SCH (20:27)
[2018-06-29] MEDS: aMILoride HCL 5 MG TABLET PO SCH (20:29)
[2018-06-29] MEDS: MORPHINE SULFATE 30 MG Immediate Release TABLET PO SCH (21:27)
[2018-06-30 00:16] VITALS: BP_SYST 119
[2018-06-30] MEDS: DIPHENHYDRAMINE INJ 50 MG/ML VIAL IVP PRN ×6 (00:29→21:20)
[2018-06-30] MEDS: ONDANSETRON HCL 4 MG/2 ML VIAL IVP PRN ×6 (00:29→21:20)
[2018-06-30] MEDS: MORPHINE 4 MG/ML INJ. SYRINGE IVP PRN ×6 (00:29→21:21)
[2018-06-30] MEDS: LR 1,000 ML IV SCH ×3 (01:51→20:49)
[2018-06-30] MEDS: POTASSIUM CHLORIDE 20 MEQ TAB.PRT.SR PO SCH ×6 (01:52→21:19)
[2018-06-30] MEDS: ACYCLOVIR 400 MG TABLET PO SCH ×6 (04:56→21:18)
[2018-06-30 07:09] LABS: BASOPHILS # (AUTO) 0.1 K/uL (0.0-0.2); BASOPHILS % (AUTO) 1.4 % (0.0-2.0); EOSINOPHILS # (AUTO) 0.3 K/uL (0.0-0.4); EOSINOPHILS % (AUTO) 3.9 % (0.0-4.0); HEMATOCRIT 33.8 % (36-48); HEMOGLOBIN 11.1 g/dL (12.0-16.0); LYMPHOCYTES # (AUTO) 2.5 K/uL (1.0-5.5); LYMPHOCYTES % (AUTO) 33.3 % (20.5-51.5); MEAN CORPUSCULAR HEMOGLOBIN 28 pg (27-31); MEAN CORPUSCULAR HGB CONC 33 % (32-36); MEAN CORPUSCULAR VOLUME 85 fL (79.0-98.0); MONOCYTES # (AUTO) 0.5 K/uL (0.0-1.0); NEUTROPHILS # (AUTO) 4.2 K/uL (1.8-7.7); NEUTROPHILS % (AUTO) 55.4 % (40.0-70.0); PLATELET COUNT (AUTO) 331 K/uL (130-430); RED BLOOD CELL COUNT(AUTO) 3.96 MIL/uL (4.2-6.2); RED CELL DISTRIBUTION WIDTH 15.7 % (9.0-15.0); WHITE BLOOD COUNT (AUTO) 7.7 K/uL (4.8-10.8)
[2018-06-30 07:36] LABS: CALCIUM 8.7 mg/dL (8.4-11.0); CREATININE 1.08 mg/dL (0.55-1.30); POTASSIUM 4.1 mmol/L (3.5-5.1)
[2018-06-30 07:45] LABS: ALBUMIN 3.2 g/dL (3.4-4.8); PHOSPHORUS 3.9 mg/dL (2.7-4.5); TOTAL BILIRUBIN 0.3 mg/dL (0.0-1.0)
[2018-06-30 08:20] VITALS: BP_SYST 102
[2018-06-30] MEDS: DULoxetine HCL 30 MG CAPSULE.DR (CYMBALTA) PO SCH (09:10)
[2018-06-30] MEDS: LORazepam 1 MG TABLET PO SCH ×2 (09:11→20:46)
[2018-06-30] MEDS: CYCLOBENZAPRINE HCL 10 MG TABLET (FLEXERIL) PO SCH ×2 (09:11→20:47)
[2018-06-30] MEDS: CHOLECALCIFEROL (VITAMIN D3) 2,000 UNIT TABLET PO SCH ×2 (09:11→20:47)
[2018-06-30] MEDS: MORPHINE SULFATE 30 MG Immediate Release TABLET PO SCH ×2 (09:12→22:40)
[2018-06-30] MEDS: SPIRONOLACTONE 50 MG TABLET (ALDACTONE) PO SCH (09:13)
[2018-06-30] MEDS: MAGNESIUM CHLORIDE 64 MG TABLET.DR PO SCH ×4 (09:13→20:45)
[2018-06-30] MEDS: aMILoride HCL 5 MG TABLET PO SCH ×2 (09:14→20:51)
[2018-06-30 12:02] VITALS: BP_SYST 103
[2018-06-30 16:02] VITALS: BP_SYST 100
[2018-06-30 20:00] VITALS: BP_SYST 106
[2018-06-30] MEDS ORDERED: ZOLPIDEM TARTRATE 5 MG TABLET PO SCH (22:30)
[2018-06-30 23:30] VITALS: BP_SYST 96
[2018-07-01] MEDS: POTASSIUM CHLORIDE 20 MEQ TAB.PRT.SR PO SCH ×5 (01:48→21:19)
[2018-07-01] MEDS: DIPHENHYDRAMINE INJ 50 MG/ML VIAL IVP PRN ×6 (01:49→23:15)
[2018-07-01] MEDS: MORPHINE 4 MG/ML INJ. SYRINGE IVP PRN ×6 (01:50→23:15)
[2018-07-01] MEDS: ONDANSETRON HCL 4 MG/2 ML VIAL IVP PRN ×6 (01:50→23:13)
[2018-07-01] MEDS: ACYCLOVIR 400 MG TABLET PO SCH ×4 (06:15→21:18)
[2018-07-01] MEDS: LR 1,000 ML IV SCH ×2 (06:20→21:18)
[2018-07-01 06:48] LABS: BASOPHILS # (AUTO) 0.1 K/uL (0.0-0.2); BASOPHILS % (AUTO) 1.5 % (0.0-2.0); EOSINOPHILS # (AUTO) 0.4 K/uL (0.0-0.4); EOSINOPHILS % (AUTO) 5.5 % (0.0-4.0); HEMATOCRIT 33.1 % (36-48); HEMOGLOBIN 10.9 g/dL (12.0-16.0); LYMPHOCYTES # (AUTO) 3.1 K/uL (1.0-5.5); LYMPHOCYTES % (AUTO) 39.7 % (20.5-51.5); MEAN CORPUSCULAR HEMOGLOBIN 28 pg (27-31); MEAN CORPUSCULAR HGB CONC 33 % (32-36); MEAN CORPUSCULAR VOLUME 86 fL (79.0-98.0); MONOCYTES # (AUTO) 0.6 K/uL (0.0-1.0); MONOCYTES % (AUTO) 7.4 % (1.7-9.3); NEUTROPHILS # (AUTO) 3.5 K/uL (1.8-7.7); NEUTROPHILS % (AUTO) 45.9 % (40.0-70.0); PLATELET COUNT (AUTO) 319 K/uL (130-430); RED BLOOD CELL COUNT(AUTO) 3.87 MIL/uL (4.2-6.2); RED CELL DISTRIBUTION WIDTH 15.8 % (9.0-15.0); WHITE BLOOD COUNT (AUTO) 7.7 K/uL (4.8-10.8)
[2018-07-01 07:09] LABS: CALCIUM 8.9 mg/dL (8.4-11.0); CREATININE 1.04 mg/dL (0.55-1.30); POTASSIUM 4.4 mmol/L (3.5-5.1)
[2018-07-01 08:03] VITALS: BP_SYST 114
[2018-07-01] MEDS: SPIRONOLACTONE 50 MG TABLET (ALDACTONE) PO SCH (08:20)
[2018-07-01] MEDS: CYCLOBENZAPRINE HCL 10 MG TABLET (FLEXERIL) PO SCH ×2 (08:20→21:19)
[2018-07-01] MEDS: LORazepam 1 MG TABLET PO SCH ×2 (08:20→21:20)
[2018-07-01] MEDS: DULoxetine HCL 30 MG CAPSULE.DR (CYMBALTA) PO SCH (08:20)
[2018-07-01] MEDS: CHOLECALCIFEROL (VITAMIN D3) 2,000 UNIT TABLET PO SCH ×2 (08:20→21:18)
[2018-07-01] MEDS: MORPHINE SULFATE 30 MG Immediate Release TABLET PO SCH ×2 (08:22→21:24)
[2018-07-01] MEDS: MAGNESIUM CHLORIDE 64 MG TABLET.DR PO SCH ×4 (08:22→21:26)
[2018-07-01] MEDS: aMILoride HCL 5 MG TABLET PO SCH ×2 (09:22→21:25)
[2018-07-01 12:00] VITALS: BP_SYST 154
[2018-07-01] MEDS ORDERED: MAGNESIUM SULFATE 4 GM in D5W 250 ML IV ONE (13:00)
[2018-07-01 15:32] LABS: BILIRUBIN,URINE NEGATIVE (NEGATIVE); BLOOD, URINE NEGATIVE (NEGATIVE); CLARITY/URINE CLEAR (CLEAR); COLOR,URINE YELLOW (YELLOW); GLUCOSE,URINE NEGATIVE (NEGATIVE); KETONES,URINE NEGATIVE (NEGATIVE); LEUKOCYTE ESTERASE ,URINE NEGATIVE (NEGATIVE); NITRITE, URINE NEGATIVE (NEGATIVE); PH,URINE 5.5 (5.0-8.0); PROTEIN URINE NEGATIVE (NEGATIVE); UROBILINOGEN,URINE 0.2 (0.2-1.0)
[2018-07-01 16:00] VITALS: BP_SYST 121
[2018-07-01 20:00] VITALS: BP_SYST 112
[2018-07-01] MEDS ORDERED: MAGNESIUM SULFATE 50 ML IV ONE (20:00)
[2018-07-01] MEDS: COLCHICINE 0.6 MG TABLET PO PRN (21:19)
[2018-07-01] MEDS: ZOLPIDEM TARTRATE 5 MG TABLET PO SCH (21:24)
[2018-07-02 00:50] VITALS: BP_SYST 111
[2018-07-02] MEDS: ONDANSETRON HCL 4 MG/2 ML VIAL IVP PRN ×5 (03:14→23:42)
[2018-07-02] MEDS: DIPHENHYDRAMINE INJ 50 MG/ML VIAL IVP PRN ×5 (03:15→23:42)
[2018-07-02] MEDS: MORPHINE 4 MG/ML INJ. SYRINGE IVP PRN ×5 (03:17→23:43)
[2018-07-02] MEDS: ACYCLOVIR 400 MG TABLET PO SCH ×3 (05:21→22:05)
[2018-07-02 08:00] VITALS: BP_SYST 119
[2018-07-02 08:00] LABS: BASOPHILS # (AUTO) 0.1 K/uL (0.0-0.2); BASOPHILS % (AUTO) 1.2 % (0.0-2.0); EOSINOPHILS # (AUTO) 0.4 K/uL (0.0-0.4); EOSINOPHILS % (AUTO) 5.5 % (0.0-4.0); HEMATOCRIT 34.5 % (36-48); HEMOGLOBIN 11.4 g/dL (12.0-16.0); LYMPHOCYTES % (AUTO) 38.5 % (20.5-51.5); MEAN CORPUSCULAR HEMOGLOBIN 28 pg (27-31); MEAN CORPUSCULAR HGB CONC 33 % (32-36); MEAN CORPUSCULAR VOLUME 85 fL (79.0-98.0); MONOCYTES # (AUTO) 0.5 K/uL (0.0-1.0); MONOCYTES % (AUTO) 6.9 % (1.7-9.3); NEUTROPHILS # (AUTO) 3.8 K/uL (1.8-7.7); NEUTROPHILS % (AUTO) 47.9 % (40.0-70.0); PLATELET COUNT (AUTO) 318 K/uL (130-430); RED BLOOD CELL COUNT(AUTO) 4.03 MIL/uL (4.2-6.2); RED CELL DISTRIBUTION WIDTH 15.6 % (9.0-15.0); WHITE BLOOD COUNT (AUTO) 7.8 K/uL (4.8-10.8)
[2018-07-02 08:07] LABS: POTASSIUM 3.6 mmol/L (3.5-5.1)
[2018-07-02 08:08] LABS: CREATININE 1.03 mg/dL (0.55-1.30)
[2018-07-02] MEDS: MAGNESIUM CHLORIDE 64 MG TABLET.DR PO SCH ×4 (09:52→22:08)
[2018-07-02] MEDS: SPIRONOLACTONE 50 MG TABLET (ALDACTONE) PO SCH (09:53)
[2018-07-02] MEDS: DULoxetine HCL 30 MG CAPSULE.DR (CYMBALTA) PO SCH (09:53)
[2018-07-02] MEDS: CYCLOBENZAPRINE HCL 10 MG TABLET (FLEXERIL) PO SCH ×2 (09:54→22:08)
[2018-07-02] MEDS: CHOLECALCIFEROL (VITAMIN D3) 2,000 UNIT TABLET PO SCH ×2 (09:54→22:05)
[2018-07-02] MEDS: MORPHINE SULFATE 30 MG Immediate Release TABLET PO SCH ×2 (09:55→22:06)
[2018-07-02] MEDS: LORazepam 1 MG TABLET PO SCH ×2 (09:56→22:10)
[2018-07-02] MEDS: aMILoride HCL 5 MG TABLET PO SCH ×2 (09:56→22:09)
[2018-07-02] MEDS ORDERED: INSULIN REGULAR, HUMAN 100 UNITS/ML, 10 ML VIAL (novoLIN R) SUBCUT PRN (10:00)
[2018-07-02] MEDS ORDERED: DEXTROSE 50% JECT 50 ML DISP.SYRIN IVP PRN (10:00)
[2018-07-02] MEDS ORDERED: MAGNESIUM SULFATE 4 GM in D5W 250 ML IV ONE (10:00)
[2018-07-02 12:45] VITALS: BP_SYST 133
[2018-07-02] MEDS ORDERED: BISACODYL 5 MG TABLET.DR (DULCOLAX) PO ONE (14:30)
[2018-07-02] MEDS ORDERED: BISACODYL 5 MG TABLET.DR (DULCOLAX) PO PRN (14:30)
[2018-07-02] MEDS: POTASSIUM CHLORIDE 20 MEQ TAB.PRT.SR PO SCH ×3 (14:46→22:17)
[2018-07-02] MEDS ORDERED: MULTIVITS,CA,MINERALS/IRON/FA 1 TABLET PO ONE (15:00)
[2018-07-02] MEDS ORDERED: DOCUSATE SODIUM 250 MG CAPSULE PO ONE (15:00)
[2018-07-02 17:18] VITALS: BP_SYST 110
[2018-07-02] MEDS: LR 1,000 ML IV SCH (18:10)
[2018-07-02 20:00] VITALS: BP_SYST 115
[2018-07-02] MEDS: DOCUSATE SODIUM 250 MG CAPSULE PO SCH (22:06)
[2018-07-02] MEDS: MULTIVITS,CA,MINERALS/IRON/FA 1 TABLET PO SCH (22:07)
[2018-07-02] MEDS: ZOLPIDEM TARTRATE 5 MG TABLET PO SCH (22:07)
[2018-07-03] MEDS: POTASSIUM CHLORIDE 20 MEQ TAB.PRT.SR PO SCH ×6 (01:33→21:07)
[2018-07-03 01:35] VITALS: BP_SYST 114
[2018-07-03] MEDS: ACYCLOVIR 400 MG TABLET PO SCH ×3 (05:20→21:06)
[2018-07-03] MEDS: ONDANSETRON HCL 4 MG/2 ML VIAL IVP PRN ×5 (05:20→22:25)
[2018-07-03] MEDS: MORPHINE 4 MG/ML INJ. SYRINGE IVP PRN ×5 (05:21→22:26)
[2018-07-03] MEDS: DIPHENHYDRAMINE INJ 50 MG/ML VIAL IVP PRN ×5 (05:21→22:25)
[2018-07-03 07:12] LABS: CREATININE 1.28 mg/dL (0.55-1.30); POTASSIUM 4.7 mmol/L (3.5-5.1)
[2018-07-03 08:20] VITALS: BP_SYST 116
[2018-07-03] MEDS: CHOLECALCIFEROL (VITAMIN D3) 2,000 UNIT TABLET PO SCH ×2 (09:48→21:07)
[2018-07-03] MEDS: LORazepam 1 MG TABLET PO SCH ×2 (09:48→21:06)
[2018-07-03] MEDS: DOCUSATE SODIUM 250 MG CAPSULE PO SCH ×2 (09:48→21:07)
[2018-07-03] MEDS: DULoxetine HCL 30 MG CAPSULE.DR (CYMBALTA) PO SCH (09:48)
[2018-07-03] MEDS: MULTIVITS,CA,MINERALS/IRON/FA 1 TABLET PO SCH ×2 (09:49→21:08)
[2018-07-03] MEDS: CYCLOBENZAPRINE HCL 10 MG TABLET (FLEXERIL) PO SCH ×2 (09:49→21:05)
[2018-07-03] MEDS: SPIRONOLACTONE 50 MG TABLET (ALDACTONE) PO SCH (09:49)
[2018-07-03] MEDS: MORPHINE SULFATE 30 MG Immediate Release TABLET PO SCH ×2 (09:50→21:09)
[2018-07-03] MEDS: aMILoride HCL 5 MG TABLET PO SCH ×2 (09:50→21:09)
[2018-07-03] MEDS: MAGNESIUM CHLORIDE 64 MG TABLET.DR PO SCH ×4 (09:51→21:06)
[2018-07-03] MEDS ORDERED: MAGNESIUM SULFATE 4 GM in D5W 250 ML IV ONE (11:15)
[2018-07-03] MEDS ORDERED: BENZOCAINE/MENTHOL 1 EACH LOZENGE MM PRN (11:45)
[2018-07-03] MEDS ORDERED: PROMETHAZINE 6.25 MG/ CODEINE 10 MG/ 5 ML PO PRN (11:45)
[2018-07-03 12:00] VITALS: BP_SYST 121
[2018-07-03] MEDS: LR 1,000 ML IV SCH ×2 (13:06→21:08)
[2018-07-03 14:04] VITALS: BP_SYST 114
[2018-07-03 16:56] VITALS: BP_SYST 103
[2018-07-03 19:30] VITALS: BP_SYST 116
[2018-07-03] MEDS: ZOLPIDEM TARTRATE 5 MG TABLET PO SCH (21:07)
[2018-07-03] MEDS: ALBUTEROL SULFATE 0.083% 2.5 MG/3 ML VIAL.NEB INH PRN ×2 (22:33→23:03)
[2018-07-04 00:20] VITALS: BP_SYST 117
[2018-07-04] MEDS: DIPHENHYDRAMINE INJ 50 MG/ML VIAL IVP PRN ×6 (02:22→23:40)
[2018-07-04] MEDS: MORPHINE 4 MG/ML INJ. SYRINGE IVP PRN ×6 (02:23→23:39)
[2018-07-04] MEDS: ONDANSETRON HCL 4 MG/2 ML VIAL IVP PRN ×6 (02:23→23:40)
[2018-07-04] MEDS: ACYCLOVIR 400 MG TABLET PO SCH ×3 (06:22→21:56)
[2018-07-04 07:16] LABS: BASOPHILS # (AUTO) 0.1 K/uL (0.0-0.2); BASOPHILS % (AUTO) 1.6 % (0.0-2.0); EOSINOPHILS # (AUTO) 0.5 K/uL (0.0-0.4); EOSINOPHILS % (AUTO) 5.8 % (0.0-4.0); HEMOGLOBIN 10.7 g/dL (12.0-16.0); LYMPHOCYTES # (AUTO) 3.3 K/uL (1.0-5.5); MEAN CORPUSCULAR HEMOGLOBIN 28 pg (27-31); MEAN CORPUSCULAR HGB CONC 32 % (32-36); MEAN CORPUSCULAR VOLUME 86 fL (79.0-98.0); MONOCYTES # (AUTO) 0.5 K/uL (0.0-1.0); MONOCYTES % (AUTO) 6.4 % (1.7-9.3); NEUTROPHILS # (AUTO) 3.8 K/uL (1.8-7.7); NEUTROPHILS % (AUTO) 46.2 % (40.0-70.0); PLATELET COUNT (AUTO) 325 K/uL (130-430); RED BLOOD CELL COUNT(AUTO) 3.85 MIL/uL (4.2-6.2); RED CELL DISTRIBUTION WIDTH 15.8 % (9.0-15.0); WHITE BLOOD COUNT (AUTO) 8.2 K/uL (4.8-10.8)
[2018-07-04 07:48] LABS: CALCIUM 8.7 mg/dL (8.4-11.0); CREATININE 1.01 mg/dL (0.55-1.30); POTASSIUM 3.9 mmol/L (3.5-5.1)
[2018-07-04 08:00] VITALS: BP_SYST 100
[2018-07-04] MEDS: CHOLECALCIFEROL (VITAMIN D3) 2,000 UNIT TABLET PO SCH ×2 (09:07→21:55)
[2018-07-04] MEDS: CYCLOBENZAPRINE HCL 10 MG TABLET (FLEXERIL) PO SCH ×2 (09:07→21:57)
[2018-07-04] MEDS: DULoxetine HCL 30 MG CAPSULE.DR (CYMBALTA) PO SCH (09:07)
[2018-07-04] MEDS: MAGNESIUM CHLORIDE 64 MG TABLET.DR PO SCH ×3 (09:08→21:55)
[2018-07-04] MEDS: SPIRONOLACTONE 50 MG TABLET (ALDACTONE) PO SCH (09:08)
[2018-07-04] MEDS: MORPHINE SULFATE 30 MG Immediate Release TABLET PO SCH ×2 (09:08→21:58)
[2018-07-04] MEDS: LORazepam 1 MG TABLET PO SCH ×2 (09:09→21:56)
[2018-07-04] MEDS: DOCUSATE SODIUM 250 MG CAPSULE PO SCH ×2 (09:09→21:55)
[2018-07-04] MEDS: POTASSIUM CHLORIDE 20 MEQ TAB.PRT.SR PO SCH ×4 (09:09→21:57)
[2018-07-04] MEDS: MULTIVITS,CA,MINERALS/IRON/FA 1 TABLET PO SCH ×2 (09:09→21:54)
[2018-07-04] MEDS: aMILoride HCL 5 MG TABLET PO SCH ×2 (09:11→21:59)
[2018-07-04] MEDS: LR 1,000 ML IV SCH ×2 (10:47→23:38)
[2018-07-04 12:17] VITALS: BP_SYST 95
[2018-07-04] MEDS ORDERED: MAGNESIUM SULFATE 4 GM in D5W 250 ML IV ONE (13:00)
[2018-07-04 16:38] VITALS: BP_SYST 133
[2018-07-04 18:48] VITALS: BP_SYST 110
[2018-07-04 20:55] VITALS: BP_SYST 126
[2018-07-04] MEDS: ZOLPIDEM TARTRATE 5 MG TABLET PO SCH (21:56)
[2018-07-05 00:15] VITALS: BP_SYST 117
[2018-07-05] MEDS: MORPHINE 4 MG/ML INJ. SYRINGE IVP PRN ×4 (04:05→16:18)
[2018-07-05] MEDS: ONDANSETRON HCL 4 MG/2 ML VIAL IVP PRN ×4 (04:06→16:18)
[2018-07-05] MEDS: DIPHENHYDRAMINE INJ 50 MG/ML VIAL IVP PRN ×4 (04:06→16:18)
[2018-07-05] MEDS: ACYCLOVIR 400 MG TABLET PO SCH ×2 (06:06→13:43)
[2018-07-05] MEDS: MAGNESIUM CHLORIDE 64 MG TABLET.DR PO SCH ×2 (06:06→13:42)
[2018-07-05] MEDS: LR 1,000 ML IV SCH ×2 (06:06→12:25)
[2018-07-05 07:33] LABS: CALCIUM 8.8 mg/dL (8.4-11.0); CREATININE 1.08 mg/dL (0.55-1.30); POTASSIUM 4.2 mmol/L (3.5-5.1)
[2018-07-05 08:12] VITALS: BP_SYST 124
[2018-07-05] MEDS: POTASSIUM CHLORIDE 20 MEQ TAB.PRT.SR PO SCH ×3 (08:14→16:18)
[2018-07-05] MEDS: DULoxetine HCL 30 MG CAPSULE.DR (CYMBALTA) PO SCH (08:14)
[2018-07-05] MEDS: DOCUSATE SODIUM 250 MG CAPSULE PO SCH (08:14)
[2018-07-05] MEDS: MULTIVITS,CA,MINERALS/IRON/FA 1 TABLET PO SCH (08:15)
[2018-07-05] MEDS: CHOLECALCIFEROL (VITAMIN D3) 2,000 UNIT TABLET PO SCH (08:15)
[2018-07-05] MEDS: CYCLOBENZAPRINE HCL 10 MG TABLET (FLEXERIL) PO SCH (08:15)
[2018-07-05] MEDS: SPIRONOLACTONE 50 MG TABLET (ALDACTONE) PO SCH (08:15)
[2018-07-05] MEDS: LORazepam 1 MG TABLET PO SCH (08:15)
[2018-07-05] MEDS: MORPHINE SULFATE 30 MG Immediate Release TABLET PO SCH (08:42)
[2018-07-05] MEDS ORDERED: MORPHINE SULFATE 30 MG Immediate Release TABLET ONE (08:47)
[2018-07-05] MEDS: aMILoride HCL 5 MG TABLET PO SCH (08:59)
[2018-07-05 12:02] VITALS: BP_SYST 103
[2018-07-05] MEDS ORDERED: MAGNESIUM SULFATE 4 GM in D5W 250 ML IV ONE (14:00)
[2018-07-05 16:02] VITALS: BP_SYST 121
[2018-07-05 17:44] VITALS: BP_SYST 122
== END 2018-07-05 18:20 | disposition home or self-care (01) | DRG 866 ==
LOC: SED 19:59 → SMU 06-29 00:29
PROVIDERS: ADMIT Internal Medicine; ATTEND Internal Medicine
DX: B34.9 Viral infection, unspecified (principal); Z68.41 Body mass index [BMI] 40.0-44.9, adult; K52.9 Noninfective gastroenteritis and colitis, unspecified; E83.42 Hypomagnesemia; G89.4 Chronic pain syndrome; E03.9 Hypothyroidism, unspecified; R73.9 Hyperglycemia, unspecified; M11.20 Other chondrocalcinosis, unspecified site; J44.9 Chronic obstructive pulmonary disease, unspecified; I10 Essential (primary) hypertension; F41.9 Anxiety disorder, unspecified; M79.7 Fibromyalgia; E66.01 Morbid (severe) obesity due to excess calories; Z88.0 Allergy status to penicillin; Z91.018 Allergy to other foods; Z79.899 Other long term (current) drug therapy; Z90.710 Acquired absence of both cervix and uterus; Z98.891 History of uterine scar from previous surgery
CPT/HCPCS: 36415; 71045; 80048; 80053; 81003; 82962; 83735-TC; 84100-TC; 85025; 86140; 87081; 94640; 94760; 96365; 96375; 99285; J1200; J2270; J2274; J2405; J3475; J3480; J7050; J7060; J7120; J7613

== ENCOUNTER 2018-07-09 15:40 | Inpatient (IN) | payer OTHER ==
[~2018-07-09] VITALS: Ht 162.6 cm; Wt 107.0 kg
[2018-07-09 15:40] VITALS: BP_SYST 132
[~2018-07-09 15:40] MED LIST changes: -ACYC800T5 PO
--- NOTE | 2018-07-09 15:40 | NUR ---
Pt placed to ER bed 06, to gown. Report given to ABHILASH Gil.
--- NOTE | 2018-07-09 15:45 | NUR ---
Patient arrived by POV, patient alert and oriented x 4. Patient able to ambulate with steady gait. C/C of anxiety, loss of appetite, dehydration, and dark green slimy stool x 4 days. Patient has history of CDiff. Patient has family at bedside for comfort and safety. Patient has +2 pulses to all extremities.
--- NOTE | 2018-07-09 15:56 | NUR ---
Patient ambulatory to restroom, accompanied by family. Patient ambulates with steady gait, in stable condition.
--- NOTE | 2018-07-09 16:10 | NUR ---
Stool sample sent to lab. aware of collection.
[2018-07-09] MEDS ORDERED: ONDANSETRON HCL 4 MG/2 ML VIAL IVP ONE (17:15)
[2018-07-09] MEDS ORDERED: NACL 0.9% 1,000 ML IV ONE (17:15)
[2018-07-09 17:30] LABS: EOSINOPHILS % (AUTO) 0.1 % (0.0-4.0); MEAN CORPUSCULAR HGB CONC 33 % (32-36)
[2018-07-09 17:35] LABS: BASOPHILS # (AUTO) 0.2 K/uL (0.0-0.2); BASOPHILS % (AUTO) 1.4 % (0.0-2.0); HEMATOCRIT 46.8 % (36-48); HEMOGLOBIN 15.3 g/dL (12.0-16.0); LYMPHOCYTES # (AUTO) 2.7 K/uL (1.0-5.5); MEAN CORPUSCULAR HEMOGLOBIN 28 pg (27-31); MEAN CORPUSCULAR VOLUME 86 fL (79.0-98.0); MONOCYTES # (AUTO) 0.7 K/uL (0.0-1.0); MONOCYTES % (AUTO) 4.5 % (1.7-9.3); NEUTROPHILS # (AUTO) 11.3 K/uL (1.8-7.7); PLATELET COUNT (AUTO) 419 K/uL (130-430); RED BLOOD CELL COUNT(AUTO) 5.47 MIL/uL (4.2-6.2); WHITE BLOOD COUNT (AUTO) 14.9 K/uL (4.8-10.8)
[2018-07-09 17:37] LABS: CALCIUM 10.3 mg/dL (8.4-11.0); CREATININE 0.99 mg/dL (0.55-1.30); POTASSIUM 3.6 mmol/L (3.5-5.1)
[2018-07-09 17:41] LABS: ALBUMIN 4.1 g/dL (3.4-4.8); TOTAL BILIRUBIN 0.6 mg/dL (0.0-1.0)
[2018-07-09] MEDS ORDERED: MORPHINE 4 MG/ML INJ. SYRINGE IVP ONE (18:15)
--- NOTE | 2018-07-09 18:45 | NUR ---
Patient medicated for pain prior to CT, tolerated well.
[2018-07-09] MEDS ORDERED: IOHEXOL 350 mgI/mL, 150 ML INFUS..BTL IV ONE (18:46)
--- NOTE | 2018-07-09 18:53 | NUR ---
Patient taken to CT via gurney, patient in stable condition, medicated for pain prior to exam. Addendum: 07/09/18 at 1859 by [email or web address] consent was signed, and questionaire completed.
--- NOTE | 2018-07-09 19:10 | NUR ---
Endorsed care to ABHILASH Ghosh.
--- NOTE | 2018-07-09 20:10 | NUR ---
Patient resting quietly in no acute distress.
--- NOTE | 2018-07-09 20:45 | NUR ---
Patient will be admitted to care of Dr Mota. Admitted to MS unit. Will go to room 118-B. Belongings list completed. Summary report printed. Report will be given at bedside. Transfer to [facility]. IV present no sign or symptom of infiltration.
[2018-07-09] MEDS: MORPHINE SULFATE 30 MG Immediate Release TABLET PO SCH (21:00)
[2018-07-09] MEDS ORDERED: aMILoride HCL 5 MG TABLET PO SCH (21:00)
[2018-07-09] MEDS ORDERED: COLCHICINE 0.6 MG TABLET PO PRN (21:00)
--- NOTE | 2018-07-09 21:01 | NUR ---
ADMIT NOTE Received pt from ER to the floor with a diagnosis of acute colitis. Admission process initiated. patient oriented to pain management, safety and call light-teach back done.
[2018-07-09 21:09] VITALS: BP_SYST 106
[2018-07-09] MEDS ORDERED: MAGNESIUM SULFATE 50 ML IV ONE (21:15)
[2018-07-09] MEDS ORDERED: MORPHINE 2 MG/ML INJ. SYRINGE IVP PRN (21:15)
--- NOTE | 2018-07-09 21:15 | NUR ---
INITIAL NOTE AT INITIAL ASSESSMENT, PATIENT IS RESTING UPRIGHT IN BED, STABLE, NO SIGNS OF RESPIRATORY DISTRESS. PATIENT VERBALIZES ABDOMINAL PAIN AT THIS TIME, PRN MEDICATION FOR HER PAIN WILL BE GIVEN ONCE PHARMACY APPROVES MD'S NEW ORDERS. CALL LIGHT- TEACH BACK IS SUCCESSFUL. PLAN OF CARE FOR THE EVENING IS COMMUNICATED WITH THE PATIENT. BED IS LOCKED, ALARMED, AND AT THE LOWEST LEVEL.
[2018-07-09] MEDS: MORPHINE 4 MG/ML INJ. SYRINGE IVP PRN (22:22)
[2018-07-09] MEDS: DIPHENHYDRAMINE INJ 50 MG/ML VIAL IVP PRN (22:23)
[2018-07-09] MEDS: CHOLECALCIFEROL (VITAMIN D-3) 400 UNIT TABLET PO SCH (22:27)
[2018-07-09] MEDS: CYCLOBENZAPRINE HCL 10 MG TABLET (FLEXERIL) PO SCH (22:27)
[2018-07-09] MEDS: metroNIDAZOLE 500 MG TABLET PO SCH (22:27)
[2018-07-09] MEDS: LR 1,000 ML IV SCH (22:28)
--- NOTE | 2018-07-09 22:31 | NUR ---
CONSULTATION PAGED/CALLED Reason for Consultation: COLITIS Person Who was Notified: JADE Consulting Physician: DR. THOMASON;DR. JOSUE ASSEMBLER FINGER BUFFS Ordering Physician: DR. HOLLY
[2018-07-09] MEDS: LACTOBACILLUS RHAMNOSUS GG 1 CAP CAPSULE PO SCH (22:43)
[2018-07-09 23:00] VITALS: BP_SYST 106
[2018-07-09] MEDS: aMILoride HCL 5 MG TABLET PO SCH (23:00)
[2018-07-09] MEDS: LORazepam 1 MG TABLET PO SCH (23:03)
--- NOTE | 2018-07-09 23:11 | NUR ---
NOTE PATIENT IS RESTING IN BED, STABLE, NO SIGNS OF RESPIRATORY DISTRESS. PRN PAIN MEDICATION GIVEN WAS EFFECTIVE, PATIENT VERBALIZES A TOLERABLE PAIN LEVEL AT THIS TIME. CALL LIGHT IS WITHIN REACH. BED IS LOCKED, ALARMED, AND AT THE LOWEST LEVEL.
[2018-07-10] VITALS (7 sets, daily range): BP systolic 100–112
--- NOTE | 2018-07-10 01:09 | NUR ---
NOTE PATIENT IS SLEEPING, STABLE, NO SIGNS OF RESPIRATORY DISTRESS. CALL LIGHT IS WITHIN REACH. BED IS LOCKED, ALARMED, AND AT THE LOWEST LEVEL.
--- NOTE | 2018-07-10 02:20 | NUR ---
PAIN NOTE/ BED ALARM REFUSAL PATIENT IS RESTING IN BED, STABLE, NO SIGNS OF RESPIRATORY DISTRESS. PATIENT VERBALIZES SEVERE LOWER ABDOMINAL PAIN AT THIS TIME, PRN MEDICATION FOR SEVERE PAIN IS GIVEN AT THIS TIME. CALL LIGHT IS WITHIN REACH. BED IS LOCKED, AND AT THE LOWEST LEVEL. PATIENT IS REFUSING BED ALARM AT THIS TIME, BUT IS NOT A FALL RISK PER OLIVAS FALL SCALE.
[2018-07-10] MEDS: DIPHENHYDRAMINE INJ 50 MG/ML VIAL IVP PRN ×6 (02:29→22:54)
[2018-07-10] MEDS: MORPHINE 4 MG/ML INJ. SYRINGE IVP PRN ×6 (02:33→22:54)
--- NOTE | 2018-07-10 03:31 | NUR ---
NOTE PATIENT IS SLEEPING, STABLE, NO SIGNS OF RESPIRATORY DISTRESS. CALL LIGHT IS WITHIN REACH. BED IS LOCKED, AND AT THE LOWEST LEVEL.
--- NOTE | 2018-07-10 05:28 | NUR ---
NOTE PATIENT IS SLEEPING, STABLE, NO SIGNS OF RESPIRATORY DISTRESS. CALL LIGHT IS WITHIN REACH. BED IS LOCKED, AND AT THE LOWEST LEVEL.
[2018-07-10] MEDS: metroNIDAZOLE 500 MG TABLET PO SCH ×3 (06:30→22:54)
[2018-07-10] MEDS: LR 1,000 ML IV SCH ×2 (06:34→18:04)
--- NOTE | 2018-07-10 06:50 | NUR ---
CLOSING NOTE PATIENT IS RESTING IN BED, STABLE, NO SIGNS OF RESPIRATORY DISTRESS. PRN MEDICATION GIVEN FOR HER SEVERE PAIN COMPLAINT AT 0620 WAS EFFECTIVE, PATIENT VERBALIZES THAT SHE IS FREE OF PAIN AT THIS TIME. FALL AND SAFETY PRECAUTIONS HAVE BEEN IN PLACE THROUGHOUT THE SHIFT. CALL LIGHT IS WITHIN REACH. BED IS LOCKED, AND AT THE LOWEST LEVEL. WILL CONTINUE TO MONITOR UNTIL SHIFT REPORT IS GIVEN AT BEDSIDE TO AM NURSE.
--- NOTE | 2018-07-10 07:32 | NUR ---
AM ROUNDS: Awake, oriented x4. Patient stats last BM was 07/09 at 5PM. Pain is 4/10 which is tolerable for the patient. Call light within reach. Bedside commode and Front wheel walker at bedside.
[2018-07-10] MEDS: CHOLECALCIFEROL (VITAMIN D-3) 400 UNIT TABLET PO SCH ×2 (08:40→21:51)
[2018-07-10] MEDS: POTASSIUM CHLORIDE 20 MEQ TAB.PRT.SR PO SCH ×4 (08:41→21:52)
[2018-07-10] MEDS: DULoxetine HCL 30 MG CAPSULE.DR (CYMBALTA) PO SCH (08:41)
[2018-07-10] MEDS: MAGNESIUM CHLORIDE 64 MG TABLET.DR PO SCH ×4 (08:41→22:55)
[2018-07-10] MEDS: LORazepam 1 MG TABLET PO SCH ×2 (08:41→21:51)
[2018-07-10] MEDS: SPIRONOLACTONE 50 MG TABLET (ALDACTONE) PO SCH (08:43)
[2018-07-10] MEDS: MORPHINE SULFATE 30 MG Immediate Release TABLET PO SCH ×2 (08:44→21:50)
[2018-07-10] MEDS: CYCLOBENZAPRINE HCL 10 MG TABLET (FLEXERIL) PO SCH ×2 (08:44→21:51)
[2018-07-10] MEDS ORDERED: CYCLOBENZAPRINE HCL 10 MG TABLET (FLEXERIL) PO ONE (08:45)
[2018-07-10] MEDS ORDERED: LACTOBACILLUS RHAMNOSUS GG 1 CAP CAPSULE PO ONE (09:15)
[2018-07-10] MEDS: LACTOBACILLUS RHAMNOSUS GG 1 CAP CAPSULE PO SCH ×2 (09:42→21:51)
[2018-07-10] MEDS: aMILoride HCL 5 MG TABLET PO SCH ×2 (09:44→22:55)
[2018-07-10] MEDS: ONDANSETRON HCL 4 MG/2 ML VIAL IVP PRN (11:26)
--- NOTE | 2018-07-10 11:36 | NUR ---
Nausea: Complained of nausea, no vomiting. Medicated with zofran 4 mg IVP.
[2018-07-10 13:30] LABS: BASOPHILS # (AUTO) 0.1 K/uL (0.0-0.2); BASOPHILS % (AUTO) 0.6 % (0.0-2.0); EOSINOPHILS # (AUTO) 0.2 K/uL (0.0-0.4); EOSINOPHILS % (AUTO) 1.6 % (0.0-4.0); HEMOGLOBIN 12.8 g/dL (12.0-16.0); LYMPHOCYTES # (AUTO) 2.3 K/uL (1.0-5.5); LYMPHOCYTES % (AUTO) 22.6 % (20.5-51.5); MEAN CORPUSCULAR HEMOGLOBIN 28 pg (27-31); MEAN CORPUSCULAR HGB CONC 33 % (32-36); MEAN CORPUSCULAR VOLUME 86 fL (79.0-98.0); MONOCYTES # (AUTO) 0.4 K/uL (0.0-1.0); MONOCYTES % (AUTO) 4.4 % (1.7-9.3); NEUTROPHILS % (AUTO) 70.8 % (40.0-70.0); PLATELET COUNT (AUTO) 351 K/uL (130-430); RED BLOOD CELL COUNT(AUTO) 4.52 MIL/uL (4.2-6.2); RED CELL DISTRIBUTION WIDTH 16.1 % (9.0-15.0)
[2018-07-10 13:40] LABS: CREATININE 1.06 mg/dL (0.55-1.30); POTASSIUM 3.1 mmol/L (3.5-5.1)
--- NOTE | 2018-07-10 14:30 | NUR ---
IV start: Started gauge 22 on the right arm with blood return on first attempt, flushes easily. Covered with tegaderm and secured with tape,.
--- NOTE | 2018-07-10 14:40 | NUR ---
Dietitian Recommendations *Recommend continuing clear liquid diet per MD orders. *Recommend advance diet to GI Soft diet, Banatrol TID when medically appropriate. Please see Nutritional Assessment for details. VIRY, RD
[2018-07-10] MEDS ORDERED: MAGNESIUM SULFATE 4 GM in D5W 250 ML IV ONE (15:00)
[2018-07-10] MEDS ORDERED: POTASSIUM CHLORIDE 40 MEQ, LIDOCAINE JECT 2% PF 100 MG 50 MG in NS 250 ML IV ONE (15:00)
[2018-07-10 16:01] LABS: BILIRUBIN,URINE NEGATIVE (NEGATIVE); BLOOD, URINE NEGATIVE (NEGATIVE); CLARITY/URINE CLEAR (CLEAR); COLOR,URINE YELLOW (YELLOW); GLUCOSE,URINE NEGATIVE (NEGATIVE); KETONES,URINE NEGATIVE (NEGATIVE); LEUKOCYTE ESTERASE ,URINE NEGATIVE (NEGATIVE); NITRITE, URINE NEGATIVE (NEGATIVE); PH,URINE 6.5 (5.0-8.0); PROTEIN URINE NEGATIVE (NEGATIVE); UROBILINOGEN,URINE 0.2 (0.2-1.0)
--- NOTE | 2018-07-10 18:40 | NUR ---
End of shift: Needs attended. Pain was addressed promptly. Call light within reach.
--- NOTE | 2018-07-10 19:50 | NUR ---
INITIAL NOTE AT INITIAL ASSESSMENT, PATIENT IS RESTING IN BED, STABLE, NO SIGNS OF RESPIRATORY DISTRESS. PATIENT VERBALIZES TOLERABLE PAIN AT THIS TIME. PLAN OF CARE FOR THE EVENING IS COMMUNICATED WITH THE PATIENT. CALL LIGHT-TEACH BACK IS SUCCESSFUL. BED IS LOCKED, ALARMED, AND AT THE LOWEST LEVEL. FALL AND SAFETY PRECAUTIONS WILL BE IN PLACE THROUGHOUT THE SHIFT.
[2018-07-10] MEDS ORDERED: MAGNESIUM SULFATE 50 ML IV ONE (20:00)
--- NOTE | 2018-07-10 21:48 | NUR ---
BED ALARM REFUSAL / NOTE PATIENT IS RESTING IN BED, STABLE, NO SIGNS OF RESPIRATORY DISTRESS. CALL LIGHT WITHIN REACH. BED IS LOCKED AND AT THE LOWEST LEVEL. PATIENT HAS REFUSED BED ALARM DESPITE EDUCATION, BUT SHE IS ASSESSED WITH STEADY GAIT AND NOT A FALL RISK PER [place]AS FALL SCALE.
--- NOTE | 2018-07-10 23:36 | NUR ---
NAUSEA NOTE PATIENT IS RESTING IN BED, STABLE, NO SIGNS OF RESPIRATORY DISTRESS. PATIENT VERBALIZES NAUSEA, PRN MEDICATION FOR HER NAUSEA WILL BE GIVEN AT THIS TIME. CALL LIGHT WITHIN REACH. BED IS LOCKED, AND AT THE LOWEST LEVEL.
[2018-07-11] MEDS: ONDANSETRON HCL 4 MG/2 ML VIAL IVP PRN ×4 (00:06→22:39)
--- NOTE | 2018-07-11 01:35 | NUR ---
NOTE PATIENT IS SLEEPING, STABLE, NO SIGNS OF RESPIRATORY DISTRESS. PRN MEDICATION FOR NAUSEA AND PAIN HAVE BEEN EFFECTIVE FOR PATIENT. CALL LIGHT WITHIN REACH. BED IS LOCKED, AND AT THE LOWEST LEVEL.
[2018-07-11] MEDS: DIPHENHYDRAMINE INJ 50 MG/ML VIAL IVP PRN ×6 (02:02→22:39)
[2018-07-11] MEDS: MORPHINE 4 MG/ML INJ. SYRINGE IVP PRN ×6 (02:05→22:39)
[2018-07-11] MEDS: LR 1,000 ML IV SCH ×2 (03:15→06:25)
--- NOTE | 2018-07-11 03:20 | NUR ---
NOTE PATIENT IS SLEEPING, STABLE, NO SIGNS OF RESPIRATORY DISTRESS. CALL LIGHT WITHIN REACH. BED IS LOCKED, AND AT THE LOWEST LEVEL.
--- NOTE | 2018-07-11 05:18 | NUR ---
NOTE PATIENT IS SLEEPING, STABLE, NO SIGNS OF RESPIRATORY DISTRESS. CALL LIGHT WITHIN REACH. BED IS LOCKED, AND AT THE LOWEST LEVEL.
[2018-07-11] MEDS: metroNIDAZOLE 500 MG TABLET PO SCH ×2 (06:25→13:33)
--- NOTE | 2018-07-11 06:38 | NUR ---
CLOSING NOTE PATIENT IS RESTING IN BED, STABLE, NO SIGNS OF RESPIRATORY DISTRESS. PATIENT VERBALIZES TOLERABLE PAIN AT THIS TIME. CALL LIGHT IS WITHIN REACH. BED IS LOCKED, AND AT THE LOWEST LEVEL. FALL AND SAFETY PRECAUTIONS HAVE BEEN IN PLACE THROUGHOUT THE SHIFT. WILL CONTINUE TO MONITOR UNTIL SHIFT REPORT IS GIVEN AT BEDSIDE TO AM NURSE.
[2018-07-11 08:00] VITALS: BP_SYST 108
--- NOTE | 2018-07-11 08:00 | NUR ---
RN NOTE PATIENT RESTING ON BED, ALERT ORIENTED X4, PATIENT DENIES PAIN OR DISCOMFORT, PATIENT WAS ASSESSED , VITAL SIGNS ARE STABLE. BED AT LOW POSITION, WILL PASS THE PATIENT MED AT 0900
[2018-07-11] MEDS: aMILoride HCL 5 MG TABLET PO SCH ×2 (09:00→20:59)
[2018-07-11] MEDS: CYCLOBENZAPRINE HCL 10 MG TABLET (FLEXERIL) PO SCH ×2 (09:10→21:01)
[2018-07-11] MEDS: MORPHINE SULFATE 30 MG Immediate Release TABLET PO SCH ×2 (09:11→21:02)
[2018-07-11] MEDS: DULoxetine HCL 30 MG CAPSULE.DR (CYMBALTA) PO SCH (09:12)
[2018-07-11] MEDS: LACTOBACILLUS RHAMNOSUS GG 1 CAP CAPSULE PO SCH ×2 (09:13→21:00)
[2018-07-11] MEDS: CHOLECALCIFEROL (VITAMIN D-3) 400 UNIT TABLET PO SCH ×2 (09:13→21:01)
[2018-07-11] MEDS: SPIRONOLACTONE 50 MG TABLET (ALDACTONE) PO SCH (09:13)
[2018-07-11] MEDS: LORazepam 1 MG TABLET PO SCH ×2 (09:14→21:00)
[2018-07-11] MEDS: POTASSIUM CHLORIDE 20 MEQ TAB.PRT.SR PO SCH ×4 (09:14→21:01)
[2018-07-11] MEDS: MAGNESIUM CHLORIDE 64 MG TABLET.DR PO SCH ×4 (09:22→21:02)
[2018-07-11 10:23] LABS: BASOPHILS # (AUTO) 0.1 K/uL (0.0-0.2); EOSINOPHILS # (AUTO) 0.2 K/uL (0.0-0.4); EOSINOPHILS % (AUTO) 3.1 % (0.0-4.0); HEMATOCRIT 35.5 % (36-48); HEMOGLOBIN 11.4 g/dL (12.0-16.0); LYMPHOCYTES # (AUTO) 1.9 K/uL (1.0-5.5); LYMPHOCYTES % (AUTO) 24.1 % (20.5-51.5); MEAN CORPUSCULAR HEMOGLOBIN 28 pg (27-31); MEAN CORPUSCULAR HGB CONC 32 % (32-36); MEAN CORPUSCULAR VOLUME 87 fL (79.0-98.0); MONOCYTES # (AUTO) 0.6 K/uL (0.0-1.0); MONOCYTES % (AUTO) 7.9 % (1.7-9.3); NEUTROPHILS # (AUTO) 5.2 K/uL (1.8-7.7); NEUTROPHILS % (AUTO) 63.9 % (40.0-70.0); PLATELET COUNT (AUTO) 310 K/uL (130-430); RED CELL DISTRIBUTION WIDTH 15.8 % (9.0-15.0)
--- NOTE | 2018-07-11 10:37 | NUR ---
RN NOTE PATIENT GOT HER MEDICATIONS ON TIME, PATIENT COMPLAINED OF PAIN OF 9/10 ON NUMERIC SCALE OF 0/10, PATIENT WAS GIVEN HER PRN MORPHINE SULFATE. WILL FOLLOW UP AND REASSESS THE PATIENT SCHEDULED.
[2018-07-11 10:40] LABS: CALCIUM 8.6 mg/dL (8.4-11.0); CREATININE 0.99 mg/dL (0.55-1.30); POTASSIUM 3.2 mmol/L (3.5-5.1)
[2018-07-11 11:13] LABS: ERYTHROCYTE SEDIMENTATION RATE 16 MM/HR (0-20)
[2018-07-11] MEDS ORDERED: POTASSIUM CHLORIDE 40 MEQ, MAGNESIUM SULFATE 4 GM, LIDOCAINE JECT 2% PF 100 MG 50 MG in... IV ONE ×4 (11:15)
[2018-07-11 11:27] VITALS: BP_SYST 113
--- NOTE | 2018-07-11 12:00 | NUR ---
RN NOTE PATIENT'S STOOL SAMPLE FOR WBC WAS SENT TO THE LAB. PATIENT DENIES PAIN OR DISCOMFORT AT THE MOMENT, WILL CONTINUE TO MONITOR.
--- NOTE | 2018-07-11 14:46 | NUR ---
RN NOTE PATIENT RESTING ON BED, HAS PAIN IN HER BACK WELL ABDOMEN, OF 9/10 ON NUMERIC SCALE. PATIENT WAS GIVEN HER PRN MORPHINE SULFATE WELL HER BENADRYL. PATIENT WAS EDUCATED ABOUT FALL PREVENTION AND INFECTION CONTROL. PATIENT VERBALIZED UNDERSTANDING, WILL CONTINUE TO MONITOR.
--- NOTE | 2018-07-11 16:00 | NUR ---
RN NOTE PATIENT RESTING ON BED, DENIES PAIN OR DISCOMFORT, PATIENT RIGHT ARM IV SITE WAS INFILTERATED. IVF WAS STOPPED AND WILL TRY TO INSERT A NEW IV SALINE LOCK IN THE OTHER ARM. WILL TRY TO GET A STOOL SAMPLE FOR C. DIFF. WHEN THE PATIENT HAS A BM. WILL CONTINUE TO MONITOR.
[2018-07-11 17:06] VITALS: BP_SYST 127
--- NOTE | 2018-07-11 18:30 | NUR ---
RN CLOSING NOTE PATIENT WAS COMPLAINING OF PAIN OF 9/10 ON A NUMERIC SCALE. IN HER ABDOMEN WELL HER BACK, PATIENT WAS GIVEN HER PRN PAIN MEDICATION WELL HER NAUSEA MED AND ANTIHISTAMINE. PATIENT WAS REPOSITIONED IN BED, BED AT LOW POSITION. WILL REASSESS THE PAIN AND THE C.DIFF STOOL SAMPLE WAS SENT TO THE LAB ACCORDING TO THE ORDER OF DR. JOSUE. THE GI M.D. ENDORSE TO NEXT SHIFT.
--- NOTE | 2018-07-11 19:28 | NUR ---
CONSULTATION PAGED/CALLED Reason for Consultation: DIZZINESS Person Who was Notified: JET Consulting Physician: ANA GARCIA Tool Grinder Set Up Operator Gear Specialty: NEURO Ordering Physician: DR. HOLLY
--- NOTE | 2018-07-11 19:55 | NUR ---
Opening Notes Received patient in bed resting. AAOx4 and able to verbalize needs. Patient just received pain medication and no complaints of pain at this time. heart and lung sounds wnl. IV on the Left hand 22g and Left forearm 22g patent with no s/s of infiltration or redness. Patient is able to ambulate with steady gait. No respiratory distress. LBM 07/11/18. Oriented the patient to the room and use of the call light. Bed alarm is refused. Informed patient of the risk and benefits and patient acknowledges understanding. Call light placed within reach and will monitor for any change of condition and pain management.
[2018-07-11 20:00] VITALS: BP_SYST 105
--- NOTE | 2018-07-11 22:40 | NUR ---
Administered pain, N/V, and benedryl medication. Tolerated well. No respiratory distress. Call light within reach.
[2018-07-12 00:02] VITALS: BP_SYST 116
--- NOTE | 2018-07-12 00:33 | NUR ---
Patient asleep in bed with no complaints of pain or respiratory distress. call light within reach.
--- NOTE | 2018-07-12 02:40 | NUR ---
Patient ambulated to the restroom with steady gait. Administered pain medication and flushed both IV sites. Both IV sites intact with no s/s of infiltration or infection. Call light within reach. Safety precautions being observed.
[2018-07-12] MEDS: DIPHENHYDRAMINE INJ 50 MG/ML VIAL IVP PRN ×6 (02:44→23:14)
[2018-07-12] MEDS: ONDANSETRON HCL 4 MG/2 ML VIAL IVP PRN ×6 (02:44→23:14)
[2018-07-12] MEDS: MORPHINE 4 MG/ML INJ. SYRINGE IVP PRN ×6 (02:45→23:14)
--- NOTE | 2018-07-12 04:55 | NUR ---
no change in condition. patient in bed with no further complaints of pain at this time.
--- NOTE | 2018-07-12 06:40 | NUR ---
CLosing Notes Patient in bed resting. AAOx4 and verbalizes needs. Requests morphine, zofran and benedryl q4 hours for chronic abdominal pain. Patient is ambulatory with steady gait. All needs have been met and safety precautions in place. Bed is locked and low. Will endorse care to oncoming nurse.
[2018-07-12 06:42] LABS: CALCIUM 9.1 mg/dL (8.4-11.0); CREATININE 1.01 mg/dL (0.55-1.30); POTASSIUM 4.1 mmol/L (3.5-5.1)
[2018-07-12 08:00] VITALS: BP_SYST 99
--- NOTE | 2018-07-12 08:00 | NUR ---
Note Pt sitting up in bed eating her clear liquids breakfast tray. IV in left hand intact and patent. No SOB/resp distress or severe abdominal pain/discomfort noted at this time. Pt ambulates independently to restroom with steady gait. Call light within reach.
[2018-07-12] MEDS: LACTOBACILLUS RHAMNOSUS GG 1 CAP CAPSULE PO SCH ×2 (09:20→22:15)
[2018-07-12] MEDS: CYCLOBENZAPRINE HCL 10 MG TABLET (FLEXERIL) PO SCH ×2 (09:20→22:17)
[2018-07-12] MEDS: DULoxetine HCL 30 MG CAPSULE.DR (CYMBALTA) PO SCH (09:20)
[2018-07-12] MEDS: MORPHINE SULFATE 30 MG Immediate Release TABLET PO SCH ×2 (09:21→21:00)
[2018-07-12] MEDS: MAGNESIUM CHLORIDE 64 MG TABLET.DR PO SCH ×4 (09:21→22:18)
[2018-07-12] MEDS: POTASSIUM CHLORIDE 20 MEQ TAB.PRT.SR PO SCH ×4 (09:21→22:15)
[2018-07-12] MEDS: LORazepam 1 MG TABLET PO SCH ×2 (09:22→22:16)
[2018-07-12] MEDS: SPIRONOLACTONE 50 MG TABLET (ALDACTONE) PO SCH (09:22)
[2018-07-12] MEDS: aMILoride HCL 5 MG TABLET PO SCH ×2 (09:34→22:19)
[2018-07-12] MEDS: CHOLECALCIFEROL (VITAMIN D-3) 400 UNIT TABLET PO SCH ×2 (09:35→22:35)
[2018-07-12] MEDS: LR 1,000 ML IV SCH ×2 (09:41→20:49)
--- NOTE | 2018-07-12 11:00 | NUR ---
Note Dr Mota called to notify MD that pt is positive for C-Diff. Also pt requesting a regular diet at this time, as pt has not had any N/V for over 24 hours.
[2018-07-12 12:02] VITALS: BP_SYST 128
--- NOTE | 2018-07-12 12:15 | NUR ---
Note Pt eating regular diet and CONTACT isolation signs were put up immediately at door post. Pt was notified immediately of C-Diff results as well. No needs noted at this time. Pain tolerable at this time. Call light within reach.
[2018-07-12] MEDS ORDERED: VANCOMYCIN HCL 250 MG CAPSULE PO SCH ×2 (13:00→17:00)
--- NOTE | 2018-07-12 13:02 | NUR ---
Nutrition F/U Admitting Diagnosis Acute colitis Reviewed Pertinent Medical/Surgical Hx Medical Record Patient Primary RN Medical History Comment: PMH: recent acute viral illness, C.diff per MD notes. Pt found w/: Acute GE w/ dehydration, Gitelma syndrome, pseudogout, fibromyalgia, depression and anxiety, chronic pain syndrome, obesity, hypothyroidism, pre-diabetes, hyperglycemia per MD notes. 07/11/18: Stool exam result: positive for C.diff. Subjective Information Pt see for follow up. Pt reported of good appetite. She was tolerating clear liquid diet and drinking Ensure Clear until this morning for breakfast where she drank 3/4 of the bottle. Pt admits to feeling hungry and wants some solid food. Pt asked RD to get approval of Dr. Mota for Banatrol. MD called RD back and verbalized approval, asked RD to enter order (07/12/2018 1300). Per EMR, abd is soft and non-distended w/ active bowel sounds. I/O: 830/0 +830ml, IV total intake 180ml per 12 hrs. PO intake 50% x 2 meals (improved). Last BM 07/12/18 x4. Pt is not yet meeting optimal nutrition. RD obtained wt w/ bedscale: 250 lb, may be skewed d/t multiple blankets. Current Diet Order/Nutrition Support regular diet Patient/Significant Other Able To Verbalize Education Provided Not Indicated Pertinent Medications cymbalta, culturelle, zofran, benadryl, k-dur, ativan, VIT D3 Pertinent Labs BG 77W, WBC 8W, Mg 1.3L, H/H 11.4L/35.5L Height (Feet) 5 feet Height (Inches) 4.00 inches Weight (Pounds) 236 pounds Weight (Calculated Kilograms) 107.274083 kilograms Patient Weight 107.048 kg Body Mass Index 40.50 kg/m2 %IBW 197 [place]/Adjusted Body Weight 120 lb, 55 kg; Adj IBW Obesity: 149 lb, 68 kg Recent Weight Change No Weight Status Morbidly Obese Gastrointestinal Symptoms Nausea Last BM Jul 12, 2018 x4 Food Allergies Yes - kiwi Usual Diet At Home regular, home cooked meals, salads per pt Skin Integrity Comment: Devin scale: 21; no skin issues noted. Current % PO Fair 50% (improved) Estimated Energy Expenditure (kcals/day) 7299-5231 kcal/day (25-30 kcal/kg IBW for maintenance) Estimated Protein Required (g/day) 55-66 gm/day (1-1.2 gm/kg IBW for maintenance) Estimated Fluid Required (l/day) 1.4-1.7 L/day (1ml/calorie) Problem/Etiology/Signs/Symptoms Inadequate nutritional intake related to altered GI function as evidenced by N/V/D and negligible PO intake. *ongoing Expected Outcomes/Goals Monitor pt appetite and PO intake w/ goal of pt meeting at least 75% of estimated nutritional needs, labs trending WNL, normal GI function, skin integrity/wt maintenance. Dietitian Recommendations *Recommend GI Soft diet, Banatrol TID. Follow Up High Risk: F/U in 2-3days
--- NOTE | 2018-07-12 13:12 | NUR ---
Dietitian Recommendations *Recommend GI Soft diet, Banatrol TID. Please see Nutrition F/U note for details. VIRY RD
--- NOTE | 2018-07-12 13:45 | NUR ---
Note Pt resting in bed after finishing her regular diet for lunch. No N/V/D noted at this time. No needs noted. IVF's infusing well at this time through left hand IV site. Call light within reach.
--- NOTE | 2018-07-12 15:20 | NUR ---
Note Dr Poole in pt's room doing assessment. Orders written and carried out. Pt resting in bed after pain medication given at this time. No needs noted at this time. Call light within reach.
[2018-07-12 16:02] VITALS: BP_SYST 97
--- NOTE | 2018-07-12 18:40 | NUR ---
Note Pt sitting up in bed watching television at this time. IV in left hand intact and patent infusing IVF's well. No SOB/resp distress noted at this time. Pt was checked on q1' and PRN for needs and care all shift. No needs noted. Call light within reach. Pt ambulated to restroom to void, stated no bowel movement this shift.
--- NOTE | 2018-07-12 19:20 | NUR ---
OPENING NOTE Received patient AOx4, awake. She is sitting upright in bed and talking to Dr. Mota. She reports abdominal discomfort; in change of shift report, I was updated that she received pain medication at 1900. She has two IV sites, one to LFA is intact and has IV fluids infusing; the second to left wrist is SL and is patent. Board was updated. Bed is to lowest position and call light w/in reach.
[2018-07-12 20:00] VITALS: BP_SYST 102
[2018-07-12] MEDS: metroNIDAZOLE 500 MG TABLET PO SCH (22:17)
[2018-07-12] MEDS: VANCOMYCIN HCL 250 MG CAPSULE PO SCH (22:17)
--- NOTE | 2018-07-12 22:30 | NUR ---
ROUNDS Patient is awake and watching t.v. Scheduled medications and antibiotics administered. Patient refused scheduled morphine 15mg tablet and will wait for next prn 4mg morphine IVP. Bed to lowest position and locked and call light w/in reach. Will continue to monitor.
[2018-07-12 23:07] VITALS: BP_SYST 102
--- NOTE | 2018-07-12 23:20 | NUR ---
MEDICATION Patient requested prn pain medication along with zofran and benadryl. IVP medications were administered as ordered via left forearm IV access; Patient tolerated adminstration. Will continue to monitor. Bed to low position and locked and call light w/in reach.
--- NOTE | 2018-07-13 02:00 | NUR ---
ROUNDS Patient is sleeping, symmetrical rise and fall of chest, non labored breathing. t.v. is off and lights are dim. Bed locked, lowest position and call light w/in reach.
--- NOTE | 2018-07-13 03:20 | NUR ---
ROUNDS Patient reported abdominal pain 04/16 and requested medication. PRN medications were administered as ordered. The 18G IV to left wrist was flushed and it was not patent; it was removed, and intact tip noted. Will continue to monitor. Safety measures in place and call light w/in reach.
[2018-07-13] MEDS: ONDANSETRON HCL 4 MG/2 ML VIAL IVP PRN ×5 (03:22→21:08)
[2018-07-13] MEDS: DIPHENHYDRAMINE INJ 50 MG/ML VIAL IVP PRN ×5 (03:22→21:08)
[2018-07-13] MEDS: MORPHINE 4 MG/ML INJ. SYRINGE IVP PRN ×5 (03:23→21:07)
[2018-07-13 06:21] LABS: BASOPHILS # (AUTO) 0.1 K/uL (0.0-0.2); BASOPHILS % (AUTO) 1.9 % (0.0-2.0); EOSINOPHILS # (AUTO) 0.4 K/uL (0.0-0.4); EOSINOPHILS % (AUTO) 5.3 % (0.0-4.0); HEMATOCRIT 35.8 % (36-48); HEMOGLOBIN 11.6 g/dL (12.0-16.0); LYMPHOCYTES # (AUTO) 2.7 K/uL (1.0-5.5); MEAN CORPUSCULAR HEMOGLOBIN 29 pg (27-31); MEAN CORPUSCULAR HGB CONC 32 % (32-36); MEAN CORPUSCULAR VOLUME 89 fL (79.0-98.0); MONOCYTES # (AUTO) 0.6 K/uL (0.0-1.0); MONOCYTES % (AUTO) 7.8 % (1.7-9.3); NEUTROPHILS # (AUTO) 3.5 K/uL (1.8-7.7); PLATELET COUNT (AUTO) 299 K/uL (130-430); RED BLOOD CELL COUNT(AUTO) 4.05 MIL/uL (4.2-6.2); RED CELL DISTRIBUTION WIDTH 16.2 % (9.0-15.0); WHITE BLOOD COUNT (AUTO) 7.3 K/uL (4.8-10.8)
[2018-07-13] MEDS: metroNIDAZOLE 500 MG TABLET PO SCH ×2 (06:26→13:25)
--- NOTE | 2018-07-13 06:30 | NUR ---
CLOSING NOTE Patient resting and in no sign of distress. Scheduled antibiotic administered. LR fluids infusing as ordered. Needs met throughout the shift. Safety measures in place and call light w/in reach. Will endorse care to oncoming nurse.
[2018-07-13 06:38] LABS: CALCIUM 8.7 mg/dL (8.4-11.0); CREATININE 0.98 mg/dL (0.55-1.30); PHOSPHORUS 4.2 mg/dL (2.7-4.5); POTASSIUM 4.3 mmol/L (3.5-5.1)
[2018-07-13 08:08] VITALS: BP_SYST 104
--- NOTE | 2018-07-13 08:17 | NUR ---
OPENING NOTE: MORNING REPORT WAS TAKEN FROM CLAIM CLINICIAN NURSE. PATIENT IS ALERT AND ORIENTED X4. PATIENT NOT COMPLAINING OF SHORTNESS OF BREATH. PATIENT ON ROOM AIR. VITALS AND MORNING ASSESSMENT WAS DONE. PATIENT NOT COMPLAINING OF VOMITING AT MOMENT BUT IS A LITTLE NAUSEOUS. PATIENT NOT COMPLAINING OF CONSTIPATION. GAVE PATIENT MORNING MEDICATIONS. EDUCATED PATIENT ON IMPORTANCE OF BED ALARM BUT REFUSED TO HAVE IT ON. CALL LIGHT IS IN REACH. BED IS IN LOWEST POSITION WITH SIDE RAILS UP. WILL CONTINUE TO MONITOR.
[2018-07-13] MEDS: CHOLECALCIFEROL (VITAMIN D-3) 400 UNIT TABLET PO SCH ×2 (08:28→21:02)
[2018-07-13] MEDS: MORPHINE SULFATE 30 MG Immediate Release TABLET PO SCH ×2 (08:29→21:00)
[2018-07-13] MEDS: VANCOMYCIN HCL 250 MG CAPSULE PO SCH ×4 (08:31→21:02)
[2018-07-13] MEDS: LORazepam 1 MG TABLET PO SCH ×2 (08:32→21:02)
[2018-07-13] MEDS: LACTOBACILLUS RHAMNOSUS GG 1 CAP CAPSULE PO SCH ×2 (08:32→21:02)
[2018-07-13] MEDS: DULoxetine HCL 30 MG CAPSULE.DR (CYMBALTA) PO SCH (08:33)
[2018-07-13] MEDS: POTASSIUM CHLORIDE 20 MEQ TAB.PRT.SR PO SCH ×4 (08:33→21:03)
[2018-07-13] MEDS: SPIRONOLACTONE 50 MG TABLET (ALDACTONE) PO SCH (08:33)
[2018-07-13] MEDS: CYCLOBENZAPRINE HCL 10 MG TABLET (FLEXERIL) PO SCH ×2 (08:33→21:03)
[2018-07-13] MEDS: MAGNESIUM CHLORIDE 64 MG TABLET.DR PO SCH ×4 (08:34→21:03)
[2018-07-13] MEDS: aMILoride HCL 5 MG TABLET PO SCH ×2 (08:35→21:05)
--- NOTE | 2018-07-13 08:35 | NUR ---
NOTE: GAVE PATIENT MORNING MEDICATIONS. PATIENT SWALLOWED WITH OUT PROBLEM. WILL CONTINUE TO MONITOR.
[2018-07-13 11:57] VITALS: BP_SYST 113
--- NOTE | 2018-07-13 12:15 | NUR ---
NOTE: PATIENT HAD TO USE RESTROOM. HELPED PATIENT BACK TO BED AFTER. SCD'S PUT BACK ON. PATIENT WAS COMPLAINING OF PAIN IN ABD AND LEGS. PATIENT ALSO COMPLAINING OF NAUSEA AND ITCHING. GAVE PATIENT MEDICATIONS. PATIENT POSITIONED TO EAT DINNER. WILL CONTINUE TO MONITOR.
[2018-07-13] MEDS ORDERED: MAGNESIUM SULFATE 4 GM in D5W 250 ML IV ONE (14:15)
--- NOTE | 2018-07-13 14:20 | NUR ---
: DR HOLLY CAME IN TO SEE PATIENT. LET DR KNOW PATIENT WANTING AMBIEN FOR NIGHT. LET DR KNOW MAG 1.3. DR ORDERED IV MAG.
--- NOTE | 2018-07-13 14:49 | NUR ---
CONSULT ID [phone] S/W MARI EXCHANGE
--- NOTE | 2018-07-13 15:36 | NUR ---
NOTE: PATIENT WENT TO USE RESTROOM. HELPED PATIENT BACK TO BED. GAVE PATIENT SCHEDULED MEDICATION. PATIENT SITTING IN BED. PATIENT HAS NO FURTHER REQUESTS. WILL CONTINUE TO MONITOR.
--- NOTE | 2018-07-13 16:35 | NUR ---
NOTE: PATIENT WAS COMPLAINING OF PAIN, NAUSEA, AND ITCHING. GAVE PATIENT MEDICATIONS. PATIENT HAS NO FURTHER REQUESTS. FLUIDS ARE INFUSING. CALL LIGHT IS IN REACH. WILL CONTINUE TO MONITOR.
[2018-07-13 16:55] VITALS: BP_SYST 109
--- NOTE | 2018-07-13 18:14 | NUR ---
CLOSING NOTE: PATIENT SITTING IN BED EATING DINNER. DR HUYNH CAME AND TALKED TO PATIENT. PATIENT CLEARED FROM HIS POINT OF VIEW. FLUIDS ARE INFUSING. PATIENT ON ROOM AIR NOT COMPLAINING OF SHORTNESS OF BREATH. PATIENT NOT HAVING NAUSEA OR VOMITING AT MOMENT. CALL LIGHT IS IN REACH. PATIENT REFUSED TO HAVE BED ALARM ON THROUGH OUT SHIFT. PATIENT HAS STEADY GAIT. WILL CONTINUE TO MONITOR AND GIVE REPORT TO COMPUTER SCIENTIST NURSE.
--- NOTE | 2018-07-13 19:50 | NUR ---
OPENING NOTES Received patient awake, sitting upright in bed and watching t.v. She has LR infusing as ordered. She reports pain and discomfort to abdomen. Will medicate as ordered w/ prn medications. Board was updated. Bed to lowest position and locked, call light w/in reach. Will continue to monitor.
[2018-07-13 20:00] VITALS: BP_SYST 108
[2018-07-13] MEDS ORDERED: MAGNESIUM SULFATE 50 ML IV ONE (20:00)
[2018-07-13] MEDS: ZOLPIDEM TARTRATE 5 MG TABLET PO SCH (21:28)
[2018-07-13] MEDS: LR 1,000 ML IV SCH (21:44)
[2018-07-14 00:04] VITALS: BP_SYST 107
--- NOTE | 2018-07-14 04:45 | NUR ---
ROUNDS Patient awake and asked for pain medication. PRN medications were administered as ordered IVP via IV acces to left FA. Patient tolerated procedure. No further needs requested. Will continue to monitor. Safety measures in place, wearing SCD's and call light w/in reach.
[2018-07-14] MEDS: ONDANSETRON HCL 4 MG/2 ML VIAL IVP PRN ×5 (04:49→21:07)
[2018-07-14] MEDS: DIPHENHYDRAMINE INJ 50 MG/ML VIAL IVP PRN ×5 (04:50→21:07)
[2018-07-14] MEDS: MORPHINE 4 MG/ML INJ. SYRINGE IVP PRN ×5 (04:50→21:07)
[2018-07-14 06:39] LABS: CALCIUM 9.4 mg/dL (8.4-11.0); CREATININE 1.02 mg/dL (0.55-1.30); POTASSIUM 3.8 mmol/L (3.5-5.1)
--- NOTE | 2018-07-14 06:55 | NUR ---
CLOSING NOTE Patient resting in no sign of distress. Bed to lowest position and locked. Call light w/in reach. Needs met throughout the shift. Will endorse care to oncoming nurse.
--- NOTE | 2018-07-14 08:00 | NUR ---
OPENING NOTE: RECEIVED REPORT FROM NIGHT NURSE. PATIENT IS RESTING COMFORTABLY IN BED. NO S/S OF DISTRESS OR SOB. PATIENT IS ALERT AND ORIENTED, ABLE TO EXPRESS NEED, AND ASK FOR ASSISTANCE. IV IS PATENT AND INFUSING. PATIENT IN CONTACT ISOLATION. SCD'S IN PLACE. BREAKFAST AT BEDSIDE. VITAL SIGNS WNL, ASSESSMENT COMPLETE. CALL LIGHT IN REACH, BED IN LOWEST POSITION, AND WILL CONTINUE TO MONITOR.
[2018-07-14 08:05] VITALS: BP_SYST 112
[2018-07-14] MEDS: MORPHINE SULFATE 30 MG Immediate Release TABLET PO SCH ×2 (08:53→21:00)
[2018-07-14] MEDS: DULoxetine HCL 30 MG CAPSULE.DR (CYMBALTA) PO SCH (09:04)
[2018-07-14] MEDS: CYCLOBENZAPRINE HCL 10 MG TABLET (FLEXERIL) PO SCH ×2 (09:05→21:05)
[2018-07-14] MEDS: POTASSIUM CHLORIDE 20 MEQ TAB.PRT.SR PO SCH ×4 (09:05→21:04)
[2018-07-14] MEDS: LORazepam 1 MG TABLET PO SCH ×2 (09:05→21:05)
[2018-07-14] MEDS: VANCOMYCIN HCL 250 MG CAPSULE PO SCH ×4 (09:05→21:04)
[2018-07-14] MEDS: CHOLECALCIFEROL (VITAMIN D-3) 400 UNIT TABLET PO SCH ×2 (09:05→21:02)
[2018-07-14] MEDS: LACTOBACILLUS RHAMNOSUS GG 1 CAP CAPSULE PO SCH ×2 (09:05→21:04)
[2018-07-14] MEDS: aMILoride HCL 5 MG TABLET PO SCH ×2 (09:06→21:03)
[2018-07-14] MEDS: SPIRONOLACTONE 50 MG TABLET (ALDACTONE) PO SCH (09:06)
[2018-07-14] MEDS: MAGNESIUM CHLORIDE 64 MG TABLET.DR PO SCH ×4 (09:07→21:04)
--- NOTE | 2018-07-14 10:36 | NUR ---
RN ROUNDS PATIENT IS RESTING COMFORTABLY IN BED. NO S/S OF DISTRESS OR SOB. PATIENT IS AWAKE AND ALERT, ABLE TO EXPRESS NEEDS, AND ASK FOR ASSISTANCE. PATIENT GIVEN PAIN MEDICATION WITH MORNING MEDS AND STATES NO PAIN AT THE MOMENT. NO NEEDS AT THIS TIME. CALL LIGHT IN REACH, BED IN LOWEST POSITION, AND WILL CONTINUE TO MONITOR.
[2018-07-14] MEDS ORDERED: MAGNESIUM SULFATE 50 ML IV ONE (12:00)
--- NOTE | 2018-07-14 12:36 | NUR ---
RN ROUNDS PATIENT IS RESTING COMFORTABLY IN BED. NO S/S OF DISTRESS OR SOB. PATIENT AWARE DISCHARGE FOR TODAY. TRYING TO FIND A RIDE HOME. NO NEEDS AT THIS TIME. CALL LIGHT IN REACH, BED IN LOWEST POSITION, AND WILL CONTINUE TO MONITOR.
--- NOTE | 2018-07-14 14:09 | NUR ---
RN ROUNDS PATIENT IS RESTING COMFORTABLY IN BED. NO S/S OF DISTRESS OR SOB. PATIENT IS ALERT AND ORIENTED, ABLE TO EXPRESS NEEDS AND ASK FOR ASSISTANCE. PATIENT STATED THAT HER RIDE WILL NOT BE ABLE TO COME BY UNTIL AFTER 6PM. NO NEEDS AT THIS TIME. CALL LIGHT IN REACH, BED IN LOWEST POSITION, AND WILL CONTINUE TO MONITOR.
[2018-07-14 16:00] VITALS: BP_SYST 112
--- NOTE | 2018-07-14 16:00 | NUR ---
RN ROUNDS PATIENT IS RESTING COMFORTABLY IN BED. NO S/S OF DISTRESS OR SOB. PATIENT IS ALERT AND ORIENTED, ABLE TO EXPRESS NEEDS AND ASK FOR ASSISTANCE. NO NEEDS AT THIS TIME. CALL LIGHT IN REACH, BED IN LOWEST POSITION, AND WILL CONTINUE TO MONITOR.
[2018-07-14 16:43] VITALS: BP_SYST 112
--- NOTE | 2018-07-14 18:43 | NUR ---
CLOSING NOTE: PATIENT IS RESTING COMFORTABLY IN BED. NO S/S OF DISTRESS OR SOB. PATIENT IS AWAKE AND ALERT. PATIENT STATES THAT HER RIDE CANNOT COME TO PICK HER UP UNTIL AFTER 10PM. ALL NEEDS MET DURING SHIFT. CALL LIGHT IN REACH, BED IN LOWEST POSITION, AND WILL GIVE REPORT TO NIGHT NURSE.
--- NOTE | 2018-07-14 19:00 | NUR ---
OPENING NOTES Patient in bed watching TV, AOx4. No signs of discomfort at this time. Breathing even and unlabored. Patient aware of discharge plan tonight. Call light with patient, instructed to call for assistance, patient verbalized understanding.
[2018-07-14 20:00] VITALS: BP_SYST 102
--- NOTE | 2018-07-14 21:00 | NUR ---
MEDPASS MEDPASS conducted at this time. Patient able swallow medications, no discomfort noted. IV site is patent, no signs of infiltration or infection noted. Call light with patient. Will continue to monitor.
[2018-07-14] MEDS: ZOLPIDEM TARTRATE 5 MG TABLET PO SCH (21:05)
[2018-07-14] MEDS: LR 1,000 ML IV SCH (21:06)
[2018-07-14 22:00] VITALS: BP_SYST 102
--- NOTE | 2018-07-14 22:40 | NUR ---
DISCHARGE Patient discharged at this time, escorted out to parking via wheelchair, by MULTIMEDIA DESIGNER. Patient had her daughter pick her up. Patient showed no s/s of acute distress, denied any pain. Breathing even and unlabored. IV was pulled out, catheter fully intact. No active bleeding noted. ID band cut off. All needs met throughout shift. Patient educated on prescription medications, patient verbalized understanding.
--- NOTE | 2018-07-16 15:16 | NUR ---
Discharge Follow Up Phone Call Centrifugal Separator phoned patient, , and left a voicemail message on 07/15/18. PURIFICATION OPERATOR phoned patient today. Patient stated she filled her prescription and is taking her medication as directed. PURIFICATION OPERATOR asked if patient had made her follow up appointments and patient became tearful. PURIFICATION OPERATOR attempted to offer support but patient stated it had be a tough day and did not wish to discuss it. Patient stated she would make her follow up appointments on Thursday and did not want any assistance making the appointments. Patient stated she had no other questions or concerns.
== END 2018-07-14 22:45 | disposition home or self-care (01) | DRG 372 ==
LOC: SED 15:40 → SMU 20:28
PROVIDERS: ADMIT Internal Medicine; ATTEND Internal Medicine
DX: A04.72 Enterocolitis due to Clostridium difficile, not specified as recurrent (principal); Z68.41 Body mass index [BMI] 40.0-44.9, adult; E87.6 Hypokalemia; E86.0 Dehydration; E83.42 Hypomagnesemia; E03.9 Hypothyroidism, unspecified; E66.01 Morbid (severe) obesity due to excess calories; F32.9 Major depressive disorder, single episode, unspecified; F41.9 Anxiety disorder, unspecified; G89.4 Chronic pain syndrome; M10.9 Gout, unspecified; N25.89 Other disorders resulting from impaired renal tubular function; M79.7 Fibromyalgia; Z86.19 Personal history of other infectious and parasitic diseases; Z90.710 Acquired absence of both cervix and uterus; Z88.0 Allergy status to penicillin; Z91.018 Allergy to other foods; Z79.899 Other long term (current) drug therapy; Z98.84 Bariatric surgery status
CPT/HCPCS: 36415; 80048; 80053; 81003; 82306; 83735-TC; 84100-TC; 85025; 85651-TC; 87045-TC; 87046; 87081; 87086; 87230-TC; 89055; 96361; 96374; 96375; 99285; J1200; J2270; J2274; J2405; J3475; J3480; J7030; J7042; J7050; J7060; J7120; Q9967

== ENCOUNTER 2018-07-26 17:32 | Emergency (ER) | payer OTHER ==
[~2018-07-26] VITALS: Ht 162.6 cm; Wt 104.3 kg
[2018-07-26 17:42] VITALS: BP_SYST 107
[2018-07-26] MEDS ORDERED: KETOROLAC TROMETHAMINE 30 MG VIAL IVP ONE (18:00)
[2018-07-26] MEDS ORDERED: ONDANSETRON HCL 4 MG/2 ML VIAL IVP ONE (18:00)
[2018-07-26] MEDS ORDERED: NACL 0.9% 1,000 ML IV ONE (18:00)
[2018-07-26 18:16] LABS: BASOPHILS # (AUTO) 0.2 K/uL (0.0-0.2); BASOPHILS % (AUTO) 1.4 % (0.0-2.0); EOSINOPHILS # (AUTO) 0.1 K/uL (0.0-0.4); EOSINOPHILS % (AUTO) 1.2 % (0.0-4.0); HEMOGLOBIN 12.8 g/dL (12.0-16.0); LYMPHOCYTES % (AUTO) 27.6 % (20.5-51.5); MEAN CORPUSCULAR HEMOGLOBIN 28 pg (27-31); MEAN CORPUSCULAR HGB CONC 32 % (32-36); MEAN CORPUSCULAR VOLUME 86 fL (79.0-98.0); MONOCYTES # (AUTO) 0.6 K/uL (0.0-1.0); MONOCYTES % (AUTO) 5.2 % (1.7-9.3); NEUTROPHILS # (AUTO) 7.1 K/uL (1.8-7.7); NEUTROPHILS % (AUTO) 64.6 % (40.0-70.0); PLATELET COUNT (AUTO) 402 K/uL (130-430); RED BLOOD CELL COUNT(AUTO) 4.63 MIL/uL (4.2-6.2); RED CELL DISTRIBUTION WIDTH 15.1 % (9.0-15.0)
[2018-07-26 18:29] LABS: CALCIUM 9.2 mg/dL (8.4-11.0); CREATININE 0.88 mg/dL (0.55-1.30)
[2018-07-26] MEDS ORDERED: MAGNESIUM SULFATE 50 ML IV ONE (18:30)
[2018-07-26 18:33] LABS: ALBUMIN 3.8 g/dL (3.4-4.8); TOTAL BILIRUBIN 0.4 mg/dL (0.0-1.0)
[2018-07-26] MEDS ORDERED: METOCLOPRAMIDE HCL 10 MG/2 ML VIAL IVP ONE (18:45)
[2018-07-26] MEDS ORDERED: POTASSIUM CHLORIDE 20 MEQ TAB.PRT.SR PO ONE (18:45)
[2018-07-26] MEDS ORDERED: DIPHENHYDRAMINE INJ 50 MG/ML VIAL IVP ONE (18:45)
== END 2018-07-26 19:11 | disposition left against medical advice (07) ==
LOC: SED 17:32
DX: A08.4 Viral intestinal infection, unspecified (principal); E83.42 Hypomagnesemia; I10 Essential (primary) hypertension; F41.9 Anxiety disorder, unspecified; M79.7 Fibromyalgia; M10.9 Gout, unspecified; Z88.0 Allergy status to penicillin; Z91.018 Allergy to other foods; Z79.899 Other long term (current) drug therapy
CPT/HCPCS: 36415; 80053; 83690; 83735; 85025; 96365; 96375; 99283; J1200; J1885; J2405; J2765; J3475; J7030

== ENCOUNTER 2018-08-20 17:41 | Emergency (ER) | payer OTHER ==
[~2018-08-20] VITALS: Ht 162.6 cm; Wt 108.9 kg
[~2018-08-20 17:41] MED LIST changes: +ALBU8.5H8 INH
[2018-08-20 18:12] LABS: BASOPHILS # (AUTO) 0.4 K/uL (0.0-0.2); BASOPHILS % (AUTO) 2.6 % (0.0-2.0); EOSINOPHILS # (AUTO) 0.2 K/uL (0.0-0.4); EOSINOPHILS % (AUTO) 1.1 % (0.0-4.0); HEMATOCRIT 42.9 % (36-48); HEMOGLOBIN 14.2 g/dL (12.0-16.0); LYMPHOCYTES # (AUTO) 2.9 K/uL (1.0-5.5); MEAN CORPUSCULAR HEMOGLOBIN 28 pg (27-31); MEAN CORPUSCULAR HGB CONC 33 % (32-36); MEAN CORPUSCULAR VOLUME 85 fL (79.0-98.0); MONOCYTES # (AUTO) 0.9 K/uL (0.0-1.0); MONOCYTES % (AUTO) 6.5 % (1.7-9.3); NEUTROPHILS # (AUTO) 9.5 K/uL (1.8-7.7); NEUTROPHILS % (AUTO) 68.8 % (40.0-70.0); PLATELET COUNT (AUTO) 451 K/uL (130-430); RED BLOOD CELL COUNT(AUTO) 5.04 MIL/uL (4.2-6.2); RED CELL DISTRIBUTION WIDTH 14.2 % (9.0-15.0); WHITE BLOOD COUNT (AUTO) 13.9 K/uL (4.8-10.8)
[2018-08-20 18:24] LABS: CALCIUM 9.2 mg/dL (8.4-11.0); CREATININE 1.17 mg/dL (0.55-1.30); POTASSIUM 3.5 mmol/L (3.5-5.1)
[2018-08-20 18:30] LABS: ALBUMIN 3.9 g/dL (3.4-4.8); TOTAL BILIRUBIN 0.5 mg/dL (0.0-1.0)
[2018-08-20] MEDS ORDERED: MORPHINE 4 MG/ML INJ. SYRINGE IVP ONE (18:30)
[2018-08-20] MEDS ORDERED: KETOROLAC TROMETHAMINE 30 MG VIAL IVP ONE (18:30)
[2018-08-20] MEDS ORDERED: DIPHENHYDRAMINE INJ 50 MG/ML VIAL IVP ONE (18:30)
[2018-08-20] MEDS ORDERED: ALBUTEROL SULFATE 0.083% 2.5 MG/3 ML VIAL.NEB INH ONE (18:30)
[2018-08-20 18:33] LABS: BILIRUBIN,URINE 1+ (NEGATIVE); BLOOD, URINE NEGATIVE (NEGATIVE); CLARITY/URINE SL CLOUDY (CLEAR); COLOR,URINE YELLOW (YELLOW); GLUCOSE,URINE NEGATIVE (NEGATIVE); KETONES,URINE TRACE (NEGATIVE); LEUKOCYTE ESTERASE ,URINE 1+ (NEGATIVE); NITRITE, URINE NEGATIVE (NEGATIVE); PH,URINE 8.5 (5.0-8.0); PROTEIN URINE TRACE (NEGATIVE); UROBILINOGEN,URINE 0.2 (0.2-1.0)
[2018-08-20 18:41] LABS: BACTERIA,URINE MODERATE /HPF (None Seen); RBC,URINE 0-3 /HPF (0-3)
[2018-08-20 18:42] LABS: TRIPLE PHOSPHATE CRYSTAL,UR 0-10 /HPF (None Seen)
[2018-08-20] MEDS ORDERED: MAGNESIUM SULFATE 50 ML IV ONE (19:15)
[2018-08-20] MEDS ORDERED: LEVOFLOXACIN 500 MG/D5W 100 ML IV ONE (19:15)
[2018-08-20] MEDS ORDERED: POTASSIUM CHLORIDE 20 MEQ/PKT PACKET PO ONE (19:30)
[2018-08-20 20:25] VITALS: BP_SYST 115
[2018-08-21] MEDS ORDERED: LEVO750T19 PO (19:11)
== END 2018-08-20 20:25 | disposition home or self-care (01) ==
LOC: SED 17:41
DX: N39.0 Urinary tract infection, site not specified (principal); I10 Essential (primary) hypertension; F41.9 Anxiety disorder, unspecified; M10.9 Gout, unspecified; M79.7 Fibromyalgia; Z90.710 Acquired absence of both cervix and uterus; Z88.0 Allergy status to penicillin; Z91.02 Food additives allergy status; Z79.899 Other long term (current) drug therapy
CPT/HCPCS: 36415; 71045; 80053; 81000; 83605; 83735; 85025; 86710; 87040; 87086; 94640; 96365; 96368; 96375; 99284; J1200; J1885; J1956; J2270; J3475; J7613; J7030

== ENCOUNTER 2018-08-23 19:50 | Emergency (ER) | payer OTHER ==
[~2018-08-23] VITALS: Ht 162.6 cm; Wt 104.3 kg
[~2018-08-23 19:50] MED LIST changes: +LEVO750T19 PO
[2018-08-23 19:55] VITALS: BP_SYST 116
[2018-08-23] MEDS ORDERED: NACL 0.9% 1,000 ML IV ONE (20:11)
[2018-08-23] MEDS ORDERED: MAGNESIUM SULFATE 50 ML IV ONE ×2 (20:15→23:00)
[2018-08-23] MEDS ORDERED: MORPHINE 4 MG/ML INJ. SYRINGE IVP ONE ×2 (20:15→23:15)
[2018-08-23] MEDS ORDERED: MAGNESIUM SULFATE 2 GM in NS 100 ML IV ONE (20:15)
[2018-08-23] MEDS ORDERED: DIPHENHYDRAMINE INJ 50 MG/ML VIAL IVP ONE ×2 (20:15→23:15)
[2018-08-23 21:05] LABS: CALCIUM 9.4 mg/dL (8.4-11.0); CREATININE 1.06 mg/dL (0.55-1.30); POTASSIUM 3.2 mmol/L (3.5-5.1)
[2018-08-23 21:08] LABS: PROTHROMBIN TIME 10.4 SECS (9.5-12.5)
[2018-08-23 21:20] LABS: ALBUMIN 3.7 g/dL (3.4-4.8); TOTAL BILIRUBIN 0.4 mg/dL (0.0-1.0)
[2018-08-23] MEDS ORDERED: POTASSIUM CHLORIDE 20 MEQ TAB.PRT.SR PO ONE ×2 (21:30→23:00)
[2018-08-23] MEDS ORDERED: KCL 20 mEq in 100 mL (PREMIX) 100 ML IV ONE (21:30)
[2018-08-23 21:37] LABS: BILIRUBIN,URINE NEGATIVE (NEGATIVE); BLOOD, URINE NEGATIVE (NEGATIVE); CLARITY/URINE HAZY (CLEAR); COLOR,URINE YELLOW (YELLOW); GLUCOSE,URINE NEGATIVE (NEGATIVE); KETONES,URINE TRACE (NEGATIVE); LEUKOCYTE ESTERASE ,URINE NEGATIVE (NEGATIVE); NITRITE, URINE NEGATIVE (NEGATIVE); PROTEIN URINE NEGATIVE (NEGATIVE); UROBILINOGEN,URINE 0.2 (0.2-1.0)
[2018-08-23 21:50] LABS: BASOPHILS # (AUTO) 0.1 K/uL (0.0-0.2); BASOPHILS % (AUTO) 0.5 % (0.0-2.0); EOSINOPHILS # (AUTO) 0.1 K/uL (0.0-0.4); EOSINOPHILS % (AUTO) 0.5 % (0.0-4.0); HEMATOCRIT 38.4 % (36-48); HEMOGLOBIN 12.9 g/dL (12.0-16.0); LYMPHOCYTES # (AUTO) 2.9 K/uL (1.0-5.5); LYMPHOCYTES % (AUTO) 26.6 % (20.5-51.5); MEAN CORPUSCULAR HEMOGLOBIN 28 pg (27-31); MEAN CORPUSCULAR HGB CONC 34 % (32-36); MEAN CORPUSCULAR VOLUME 84 fL (79.0-98.0); MONOCYTES # (AUTO) 0.7 K/uL (0.0-1.0); MONOCYTES % (AUTO) 6.8 % (1.7-9.3); NEUTROPHILS # (AUTO) 7.2 K/uL (1.8-7.7); NEUTROPHILS % (AUTO) 65.6 % (40.0-70.0); PLATELET COUNT (AUTO) 386 K/uL (130-430); RED BLOOD CELL COUNT(AUTO) 4.59 MIL/uL (4.2-6.2); RED CELL DISTRIBUTION WIDTH 14.1 % (9.0-15.0)
[2018-08-23] MEDS ORDERED: ONDANSETRON HCL 4 MG/2 ML VIAL IVP ONE (22:30)
[2018-08-24] MEDS ORDERED: DIPHENHYDRAMINE INJ 50 MG/ML VIAL IVP ONE (01:45)
[2018-08-24] MEDS ORDERED: MORPHINE 4 MG/ML INJ. SYRINGE IVP ONE (01:45)
[2018-08-24 02:40] VITALS: BP_SYST 123
== END 2018-08-24 02:40 | disposition home or self-care (01) ==
LOC: SED 19:50
DX: E83.42 Hypomagnesemia (principal); E87.6 Hypokalemia; R10.9 Unspecified abdominal pain; R11.0 Nausea; I10 Essential (primary) hypertension; F41.9 Anxiety disorder, unspecified; M79.7 Fibromyalgia; Z98.84 Bariatric surgery status; Z88.0 Allergy status to penicillin; Z91.018 Allergy to other foods; Z79.899 Other long term (current) drug therapy
CPT/HCPCS: 36415; 80053; 81003; 83605; 83735; 85025; 85610; 85730; 87040; 87086; 93005; 96365; 96366; 96368; 96375; 96376; 99284; J1200 ×2; J2270 ×2; J2405; J3475; J3480; J7030

== ENCOUNTER 2018-09-02 20:38 | Inpatient (IN) | payer OTHER ==
[~2018-09-02] VITALS: Ht 162.6 cm; Wt 109.8 kg
[2018-09-02 20:43] VITALS: BP_SYST 149
--- NOTE | 2018-09-02 21:32 | NUR ---
Pt c/o "gout" pain to Right knee with cramping to BLE x 3 days.
--- NOTE | 2018-09-02 21:32 | NUR ---
Patient to ER bed 03 to gown for evaluation. Side rails up.
--- NOTE | 2018-09-02 21:55 | NUR ---
# 20 gauge angiocath placed to RHA. Use of asceptic technique. Opsite placed over site. Blood return noted. Blood for lab drawn from site. Flushed with 10 cc of normal saline. No evidence of infiltration noted. Patient tolerated well.
[2018-09-02 22:11] LABS: HEMATOCRIT 44.1 % (36-48); HEMOGLOBIN 14.2 g/dL (12.0-16.0); MEAN CORPUSCULAR HEMOGLOBIN 27 pg (27-31); MEAN CORPUSCULAR HGB CONC 32 % (32-36); MEAN CORPUSCULAR VOLUME 84 fL (79.0-98.0); PLATELET COUNT (AUTO) 410 K/uL (130-430); RED BLOOD CELL COUNT(AUTO) 5.23 MIL/uL (4.2-6.2); RED CELL DISTRIBUTION WIDTH 14.4 % (9.0-15.0); WHITE BLOOD COUNT (AUTO) 18.3 K/uL (4.8-10.8)
[2018-09-02 22:28] LABS: ANION GAP 14 (5-15); CALCIUM 8.8 mg/dL (8.4-11.0); CHLORIDE 99 mmol/L (98-107); CREATININE 0.97 mg/dL (0.55-1.30); GLUCOSE 121 mg/dL (70-99); SODIUM SERUM 141 mmol/L (136-145); UREA NITROGEN, BLOOD 22 mg/dL (8-21)
--- NOTE | 2018-09-02 22:30 | NUR ---
Pt continues to c/o severe cramping to BLE. Dr. Cade notified and states, "I don't order narcotics in the ER unless it's a life threatening emergency."
[2018-09-02 22:33] LABS: ALANINE AMINOTRANSFERASE 16 U/L (12-78); ALBUMIN 3.6 g/dL (3.4-4.8); ASPARTATE AMINOTRANSFERASE 12 U/L (10-37); GFR AFRICAN AMERICAN 78 mL/min (>90); TOTAL BILIRUBIN 0.4 mg/dL (0.0-1.0)
--- NOTE | 2018-09-02 22:47 | NUR ---
Dr. Cade at bedside and offered Toradol for pain. Pt states "I want something stronger." Dr. Cade refuses to give stronger medication and pt wants to leave AMA.
--- NOTE | 2018-09-02 22:48 | NUR ---
Pt states "I don't want any medications that Ordered, including the Magnesium." Pt educated on need for magnesium r/t Mg2+ level <1. Pt still refuses. Dr. Cade notified.
--- NOTE | 2018-09-02 22:50 | NUR ---
PIV to RHA discontinued with angiocath tip intact, bleeding controlled. AMA brought for pt to sign. Pt on the phone and then states, "I don't want to leave. I'm getting the hadoop administrator involved." Dr. Cade updated on pt.'s statement.
[2018-09-02 23:10] LABS: ATYPICAL LYMPHOCYTES % 0 % (0-0); BAND % (MANUAL) 0 % (0-6); BASOPHILS % (MANUAL) 0 % (0-2); EOSINOPHILS % (MANUAL) 0 % (0-7); LYMPHOCYTES % (MANUAL) 36 % (20-46); METAMYELOCYTES % 2 % (0-0); MONOCYTES % (MANUAL) 9 % (0-11); MYELOCYTES % 0 % (0-0)
[2018-09-02] MEDS ORDERED: MAGNESIUM SULFATE 1 GM/2 ML VIAL IVP ONE (23:15)
[2018-09-02] MEDS ORDERED: KETOROLAC TROMETHAMINE 30 MG VIAL IVP ONE (23:15)
[2018-09-02] MEDS ORDERED: POTASSIUM CHLORIDE 20 MEQ/PKT PACKET PO ONE (23:15)
--- NOTE | 2018-09-02 23:25 | NUR ---
Pt.'s partner, Archana present and states now that I'm here she has to take the medications. Pt complies to medical regimen and agrees to receive medications ordered.
[2018-09-02] MEDS ORDERED: MAGNESIUM SULFATE 50 ML IV ONE (23:50)
[2018-09-03] MEDS ORDERED: MAGNESIUM SULFATE 50 ML IV ONE ×2 (00:30→00:45)
--- NOTE | 2018-09-03 00:30 | NUR ---
Pt c/o mid C/P, sharp, non-radiating and states "I don't feel right." B/P 86/52, P 112. Dr. Cade notified. Pt on cardiac rehabilitation specialist.
--- NOTE | 2018-09-03 00:30 | NUR ---
NTG 0.4 mg SL held r/t low B/P.
--- NOTE | 2018-09-03 00:40 | NUR ---
ASA 81 mg PO given. C/P 01/14, states improving, still tight feeling. B/P 92/64, HR 110. Dr. Cade notified.
--- NOTE | 2018-09-03 00:45 | NUR ---
Pt actively vomiting orange colored emesis ~ [address] Cade notified. Pt to be medicated with Zofran 8 mg IVP and NS bolus x 2 Liters.
--- NOTE | 2018-09-03 00:55 | NUR ---
Pt verbalizes improvement in C/P, no further vomiting. B/P 112/72, HR 110. NS bolus continues to infuse to patent PIV to RHA. Dr. Cade updated on status.
[2018-09-03] MEDS ORDERED: ONDANSETRON HCL 4 MG/2 ML VIAL IVP ONE (01:00)
[2018-09-03] MEDS ORDERED: ASPIRIN 81 MG TAB.CHEW PO ONE (01:00)
[2018-09-03] MEDS ORDERED: ONDANSETRON HCL 4 MG/2 ML VIAL ONE (01:00)
[2018-09-03] MEDS ORDERED: ASPIRIN 81 MG TAB.CHEW ONE (01:00)
--- NOTE | 2018-09-03 01:01 | NUR ---
Pt c/o difficulty breathing. SPO2 99% RA. Dr. Cade notified and requested to bedside.
--- NOTE | 2018-09-03 01:09 | NUR ---
Pt verbalizes improvement in breathing and C/P diminished 10/17.
--- NOTE | 2018-09-03 01:46 | NUR ---
Patient will be admitted to care of Dr. Mota. Admitted to Tele unit. Will go to room 108C. Summary report printed. Report will be given at bedside.
--- NOTE | 2018-09-03 02:10 | NUR ---
Initial Note Patient arrived in the unit with ER nurse and family. Received report from ABHILASH Newton. Patient able to transfer from [facility] to bed without any difficulty. No SOB noted. Complain of right knee pain and BLE cramps at this time but denies any n/v. Placed on monitor-NSR. Skin intact. Right knee edema. MRSA will be collected. Saline lock patent. Oriented to room and hospital policies. Care and monitoring will be provided. Needs attended. Call light within reach. Bed alarm on and at lowest position at all times. Given warm blanket. Kept warm and comfortable.
--- NOTE | 2018-09-03 02:10 | NUR ---
ADMISSION: The patient, DEVANG ZAMBRANO, 53 y/o, F admitted by MEG HOLLY MD, was given written information regarding hospital policies, unit procedures and contact persons.
[2018-09-03] MEDS: DIPHENHYDRAMINE INJ 50 MG/ML VIAL IVP PRN ×7 (02:22→23:22)
--- NOTE | 2018-09-03 02:25 | NUR ---
RN Note VS stable. Medicated for pain and itching per patient's request. Call light within reach. Family left. Needs attended.
[2018-09-03] MEDS: MORPHINE 4 MG/ML INJ. SYRINGE IVP PRN ×7 (02:29→23:22)
[2018-09-03 02:30] VITALS: BP_SYST 106
[2018-09-03] MEDS: NACL 0.9% 2,000 ML IV ONE ×2 (02:30→06:36)
[2018-09-03] MEDS ORDERED: NS 250 ML IV SCH (03:15)
[2018-09-03 03:26] VITALS: BP_SYST 106
[2018-09-03] MEDS ORDERED: POTASSIUM CHLORIDE 20 MEQ/PKT PACKET PO ONE (03:30)
--- NOTE | 2018-09-03 03:30 | NUR ---
RN Note Awaiting DENNIS Newton RN call back re the NS bolus. Ordered NS to KVO. Pharmacy called to verify the K+ medication ordered every 4 hrs. Pharmacy ordered just once now and will clarify with MD tomorrow AM-will endorse. MRSA screen done and sent to lab. Patient is awake, watching TV. No complaints at this time.
--- NOTE | 2018-09-03 03:45 | NUR ---
RN Note Confirmed with DENNIS Newton RN that 2L of NS bolus was given.
--- NOTE | 2018-09-03 05:00 | NUR ---
RN Note Assisted patient to the bathroom and back to bed with steady gait. No distress noted. Kept warm and comfortable.
[2018-09-03] MEDS: ONDANSETRON HCL 4 MG/2 ML VIAL IVP PRN ×4 (06:21→19:55)
--- NOTE | 2018-09-03 06:43 | NUR ---
End Note Afebrile. VS stable. No complain of Chest pain or SOB throughout the night. Medicated for right knee and BLE pain twice since admission and once for nausea. No vomiting episodes. AM labs today to monitor K+ and Mg+. Assisted to the bathroom and back to bed with steady gait. Fall precautions observed. Needs DVT prophylaxis and clarify with Dr. Mota the medication K 40 meq Q4 hours, will endorse. Care and monitoring provided per protocol. Needs attended. Call light within reach. Bed alarm on and at lowest position at all times. NSR on monitor. Kept warm and comfortable.
[2018-09-03 07:24] LABS: CALCIUM 8.2 mg/dL (8.4-11.0); CREATININE 0.92 mg/dL (0.55-1.30); POTASSIUM 3.8 mmol/L (3.5-5.1)
[2018-09-03 08:00] VITALS: BP_SYST 112
--- NOTE | 2018-09-03 08:00 | NUR ---
A/OX4, SR on monitor. Complain of right knee pain and BLE cramps at this time. IV on right hand, #22, NS with KVO, intact and patent. Oriented to room, instructed patient fire operations forester light and safety measures. Call light is in place, bed locked at the lowest position, bed alarm on. Will continue to monitor.
[2018-09-03] MEDS: POTASSIUM CHLORIDE 20 MEQ/PKT PACKET PO SCH ×5 (08:29→23:23)
--- NOTE | 2018-09-03 10:18 | NUR ---
Patient has pain in the right knee, 8/10. morphine IVP will be given.
[2018-09-03 12:00] VITALS: BP_SYST 116
--- NOTE | 2018-09-03 12:20 | NUR ---
patient is eating lunch, still complaining pain in the right knees and cramps at the lower extremities
[2018-09-03] MEDS ORDERED: MORPHINE SULFATE 30 MG Immediate Release TABLET PO ONE (13:30)
[2018-09-03] MEDS ORDERED: MAGNESIUM SULFATE 4 GM in D5W 250 ML IV ONE (13:30)
[2018-09-03] MEDS ORDERED: COLCHICINE 0.6 MG TABLET PO PRN (13:30)
[2018-09-03] MEDS ORDERED: DULoxetine HCL 30 MG CAPSULE.DR (CYMBALTA) PO ONE (13:30)
[2018-09-03] MEDS ORDERED: SPIRONOLACTONE 50 MG TABLET (ALDACTONE) PO ONE (13:30)
[2018-09-03] MEDS ORDERED: LORazepam 1 MG TABLET PO ONE (13:30)
[2018-09-03] MEDS ORDERED: aMILoride HCL 5 MG TABLET PO ONE (13:30)
[2018-09-03] MEDS ORDERED: CYCLOBENZAPRINE HCL 10 MG TABLET (FLEXERIL) PO ONE (13:30)
[2018-09-03] MEDS ORDERED: POTASSIUM CHLORIDE 20 MEQ TAB.PRT.SR PO SCH (13:30)
[2018-09-03] MEDS ORDERED: FAMOTIDINE 20 MG TABLET PO ONE (14:00)
--- NOTE | 2018-09-03 14:06 | NUR ---
CONSULTATION PAGED/CALLED Reason for Consultation: [] CP Person Who was Notified: [] ILDEFONSO Consulting Physician: [] DR HATHAWAY Dock Boss Specialty: [] CARDIOLOGY Ordering Physician: [] DR HOLLY
[2018-09-03] MEDS ORDERED: guaiFENesin ER 600 MG TAB PO ONE (15:30)
[2018-09-03] MEDS: LR 1,000 ML IV SCH (15:53)
[2018-09-03 16:00] VITALS: BP_SYST 124
--- NOTE | 2018-09-03 16:11 | NUR ---
Patient is resting, right knee pain manageable 3/10 at this time.
[2018-09-03] MEDS ORDERED: MAGNESIUM PO SCH (17:00)
[2018-09-03 17:44] LABS: BILIRUBIN,URINE NEGATIVE (NEGATIVE); BLOOD, URINE NEGATIVE (NEGATIVE); CLARITY/URINE CLEAR (CLEAR); COLOR,URINE YELLOW (YELLOW); GLUCOSE,URINE NEGATIVE (NEGATIVE); KETONES,URINE NEGATIVE (NEGATIVE); LEUKOCYTE ESTERASE ,URINE NEGATIVE (NEGATIVE); NITRITE, URINE NEGATIVE (NEGATIVE); PROTEIN URINE NEGATIVE (NEGATIVE); UROBILINOGEN,URINE 0.2 (0.2-1.0)
--- NOTE | 2018-09-03 18:30 | NUR ---
Patient ambulates to bathroom with assistance. No signs of distress noted.
--- NOTE | 2018-09-03 19:29 | NUR ---
OPENING NOTE RECEIVED CARE OF PT AND BEDSIDE REPORT. PT RESTING IN BED, AA0X4, BREATHING EVEN AND EFFORTLESSLY TO ROOM AIR. IVF INFUSING ORDERED. NO SIGNS OF ACUTE DISTRESS NOTED. WILL CONTINUE TO MONITOR.
--- NOTE | 2018-09-03 19:55 | NUR ---
MORPHINE ADMINISTERED PT REPORTING 8/10 PAIN IN LOWER LEGS. MORPHINE 4 MG ADMINISTERED AND PT REPOSITIONED FOR COMFORT. WILL CONTINUE TO MONITOR.
[2018-09-03] MEDS: MORPHINE SULFATE 30 MG Immediate Release TABLET PO SCH (21:52)
[2018-09-03] MEDS: guaiFENesin ER 600 MG TAB PO SCH (21:54)
[2018-09-03] MEDS: SPIRONOLACTONE 50 MG TABLET (ALDACTONE) PO SCH (21:56)
[2018-09-03] MEDS: CYCLOBENZAPRINE HCL 10 MG TABLET (FLEXERIL) PO SCH (21:56)
[2018-09-03] MEDS: FAMOTIDINE 20 MG TABLET PO SCH (21:57)
[2018-09-03] MEDS: LORazepam 1 MG TABLET PO SCH (21:57)
[2018-09-03] MEDS: aMILoride HCL 5 MG TABLET PO SCH (22:07)
--- NOTE | 2018-09-03 23:22 | NUR ---
MORPHINE ADMINISTERED PT REPORTING 8/10 PAIN IN BILATERAL LOWER EXTREMITIES. MORPHINE ADMINISTERED, PT REPOSITIONED FOR COMFORT. SAFETY PRECAUTIONS IN PLACE. PT INSTRUCTED TO CALL FOR ASSISTANCE. WILL CONTINUE TO MONITOR.
[2018-09-04] MEDS: ZOLPIDEM TARTRATE 5 MG TABLET PO PRN (00:23)
[2018-09-04 00:40] VITALS: BP_SYST 132
[2018-09-04] MEDS: ONDANSETRON HCL 4 MG/2 ML VIAL IVP PRN ×4 (02:25→20:54)
[2018-09-04] MEDS: DIPHENHYDRAMINE INJ 50 MG/ML VIAL IVP PRN ×7 (02:25→20:54)
[2018-09-04] MEDS: POTASSIUM CHLORIDE 20 MEQ/PKT PACKET PO SCH ×6 (02:27→23:56)
[2018-09-04] MEDS: MORPHINE 4 MG/ML INJ. SYRINGE IVP PRN ×7 (02:27→20:56)
--- NOTE | 2018-09-04 02:27 | NUR ---
MORPHINE ADMINISTERED PT REPORTING 8/10 PAIN IN LOWER LEGS. MORPHINE 4MG IVP ADMINISTERED AND PATIENT REPOSITIONED IN BED. PT EDUCATED ON MEDICATION AND POSSIBLE SIDE EFFECTS. SAFETY PRECAUTIONS IN PLACE. WILL CONTINUE TO MONITOR.
[2018-09-04] MEDS: LR 1,000 ML IV SCH (02:44)
--- NOTE | 2018-09-04 06:05 | NUR ---
MORPHINE ADMINISTERED PT REPORTS 8/10 PAIN IN LOWER LEGS. MORPHINE 4 MG IVP ADMINISTERED. SAFETY PRECAUTIONS IN PLACE. PT INSTRUCTED TO CALL FOR HELP.
--- NOTE | 2018-09-04 07:25 | NUR ---
CLOSING NOTE PT REQUESTING BREATHING TREATMENTS, ENDORSED TO DAY SHIFT RNJACKY TO FOLLOW UP. ALL NEEDS MET THROUGHOUT SHIFT.
[2018-09-04 07:31] LABS: MEAN CORPUSCULAR HEMOGLOBIN 28 pg (27-31)
[2018-09-04 07:52] LABS: BASOPHILS % (AUTO) 0.8 % (0.0-2.0); EOSINOPHILS % (AUTO) 3.2 % (0.0-4.0); HEMATOCRIT 36.8 % (36-48); HEMOGLOBIN 12.1 g/dL (12.0-16.0); LYMPHOCYTES % (AUTO) 36.7 % (20.5-51.5); MEAN CORPUSCULAR HGB CONC 33 % (32-36); MEAN CORPUSCULAR VOLUME 85 fL (79.0-98.0); MONOCYTES % (AUTO) 5.6 % (1.7-9.3); NEUTROPHILS % (AUTO) 53.7 % (40.0-70.0); PLATELET COUNT (AUTO) 305 K/uL (130-430); RED BLOOD CELL COUNT(AUTO) 4.31 MIL/uL (4.2-6.2); RED CELL DISTRIBUTION WIDTH 14.6 % (9.0-15.0); WHITE BLOOD COUNT (AUTO) 10.4 K/uL (4.8-10.8)
[2018-09-04 07:53] LABS: BASOPHILS # (AUTO) 0.8 K/uL (0.0-0.2); EOSINOPHILS # (AUTO) 0.3 K/uL (0.0-0.4); LYMPHOCYTES # (AUTO) 3.8 K/uL (1.0-5.5); MONOCYTES # (AUTO) 0.6 K/uL (0.0-1.0); NEUTROPHILS # (AUTO) 5.6 K/uL (1.8-7.7)
[2018-09-04 08:00] VITALS: BP_SYST 127
--- NOTE | 2018-09-04 08:00 | NUR ---
A/OX4, SR on monitor. Complain of right knee pain and BLE cramps at this time. IV on right hand, #22, NS with KVO, intact and patent. Oriented to room, instructed patient director of rehabilitation light and safety measures. Call light is in place, bed locked at the lowest position, bed alarm on. Will continue to monitor.
[2018-09-04 08:09] LABS: ALBUMIN 3.2 g/dL (3.4-4.8); CALCIUM 8.8 mg/dL (8.4-11.0); CREATININE 0.94 mg/dL (0.55-1.30); PHOSPHORUS 3.7 mg/dL (2.7-4.5); THYROID STIMULATING HORMONE 1.74 uIu/mL (0.34-4.82); TOTAL BILIRUBIN 0.4 mg/dL (0.0-1.0)
[2018-09-04 08:35] LABS: ERYTHROCYTE SEDIMENTATION RATE 12 MM/HR (0-20)
[2018-09-04] MEDS ORDERED: SPIRONOLACTONE 50 MG TABLET (ALDACTONE) PO SCH (09:00)
[2018-09-04] MEDS: SPIRONOLACTONE 50 MG TABLET (ALDACTONE) PO SCH ×2 (09:12→20:48)
[2018-09-04] MEDS: LORazepam 1 MG TABLET PO SCH ×2 (09:12→20:48)
[2018-09-04] MEDS: FAMOTIDINE 20 MG TABLET PO SCH ×2 (09:13→20:48)
[2018-09-04] MEDS: CYCLOBENZAPRINE HCL 10 MG TABLET (FLEXERIL) PO SCH ×2 (09:13→20:47)
[2018-09-04] MEDS: DULoxetine HCL 30 MG CAPSULE.DR (CYMBALTA) PO SCH (09:13)
[2018-09-04] MEDS: MORPHINE SULFATE 30 MG Immediate Release TABLET PO SCH ×2 (09:15→22:51)
[2018-09-04] MEDS: guaiFENesin ER 600 MG TAB PO SCH ×2 (09:15→20:51)
[2018-09-04] MEDS: aMILoride HCL 5 MG TABLET PO SCH ×2 (09:16→20:49)
[2018-09-04] MEDS ORDERED: MAGNESIUM SULFATE 4 GM in D5W 250 ML IV ONE (10:00)
--- NOTE | 2018-09-04 10:00 | NUR ---
DR. HOLLY IS CALLED ABOUT PATIENT'S CURRENT CONDITION. ORDERS WERE GIVEN, WILL BE CARRIED OUT.
[2018-09-04] MEDS: ALBUTEROL SULFATE 0.083% 2.5 MG/3 ML VIAL.NEB INH PRN (11:16)
[2018-09-04 12:02] VITALS: BP_SYST 114
--- NOTE | 2018-09-04 12:16 | NUR ---
PATIENT'S COMPLAINING OF PAIN IN THE SHOULDERS, AND RIGHT KNEE. MORPHINE 4MG IS GIVEN IVP.
[2018-09-04] MEDS ORDERED: INSULIN REGULAR, HUMAN 100 UNITS/ML, 10 ML VIAL (novoLIN R) SUBCUT PRN (13:45)
[2018-09-04] MEDS ORDERED: DEXTROSE 50% JECT 50 ML DISP.SYRIN IVP PRN (13:45)
--- NOTE | 2018-09-04 14:32 | NUR ---
Patient is assessed by Dr. Mota; orders were given.
[2018-09-04] MEDS ORDERED: MAGNESIUM OXIDE 400 MG TABLET PO ONE (14:45)
[2018-09-04] MEDS: GABAPENTIN 100 MG CAPSULE PO SCH ×2 (14:55→20:47)
[2018-09-04] MEDS: LEVOFLOXACIN 500 MG/D5W 100 ML IV SCH (14:55)
[2018-09-04 16:02] VITALS: BP_SYST 114
--- NOTE | 2018-09-04 17:00 | NUR ---
BLOOD SUGAR 120. NO COVERAGE NEEDED.
--- NOTE | 2018-09-04 18:35 | NUR ---
PATIENT TOLERATED DINNER WITHOUT DISTRESS. ALL NEEDS MET. WILL DELEGATE TO NEXT SHIFT.
--- NOTE | 2018-09-04 19:38 | NUR ---
OPENING NOTE PT RESTING IN BED, AAOX4, IV SITES ARE SALINE LOCKED, NO SIGNS OF INFILTRATION AT IV SITE. BREATHING EVEN AND EFFORTLESSLY TO ROOM AIR. NO SIGN OF ACUTE DISTRESS AT THIS TIME. SAFETY PRECAUTIONS IN PLACE. PT INSTRUCTED TO CALL FOR ASSISTANCE. WILL CONTINUE TO MONITOR.
[2018-09-04 20:00] VITALS: BP_SYST 118
[2018-09-04] MEDS: MAGNESIUM OXIDE 400 MG TABLET PO SCH (20:47)
[2018-09-04] MEDS: DOCUSATE SODIUM 250 MG CAPSULE PO SCH (20:47)
--- NOTE | 2018-09-04 21:12 | NUR ---
PAIN/PAIN MEDICATION PT REPORTING 8/10 PAIN IN LEFT SHOULDER AND RIGHT KNEE. ADMINISTERED 6 MG MORPHINE IVP PER ORDERS. REPOSITIONED PT WITH KNEE UNDER PILLOW. PT EDUCATED ON MORPHINE MEDICATION AND POTENTIAL SIDE EFFECTS. INSTRUCTED TO CALL FOR HELP. SAFETY PRECAUTIONS IN PLACE, CALL LIGHT WITH PT. WILL CONTINUE TO MONITOR.
--- NOTE | 2018-09-04 23:05 | NUR ---
LEFT SHOULDER PAIN PT REPOSITIONED WITH PILLOW PLACED UNDER SHOULDER. SCHEDULED MORPHINE 30 MG PO WAS ALSO GIVEN. PT REPORTED THAT HER SHOULDER FELT BETTER WITH THE REPOSITIONING AND PILLOW. SAFETY PRECAUTIONS IN PLACE, PT INSTRUCTED TO CALL FOR ASSISTANCE. WILL CONTINUE TO MONITOR.
[2018-09-05] VITALS (7 sets, daily range): BP systolic 93–120
[2018-09-05] MEDS: DIPHENHYDRAMINE INJ 50 MG/ML VIAL IVP PRN ×8 (00:05→23:35)
[2018-09-05] MEDS: MORPHINE 4 MG/ML INJ. SYRINGE IVP PRN ×8 (00:07→23:36)
--- NOTE | 2018-09-05 00:14 | NUR ---
MORPHINE ADMINISTERED PT REPORTING 8/10 PAIN IN RIGHT KNEE AND LEFT SHOULDER. MORPHINE 6 MG IVP ADMINISTERED. PT REPOSITIONED FOR COMFORT WITH PILLOW UNDER KNEE AND LEFT ARM. SAFETY PRECAUTIONS IN PLACE. PT INSTRUCTED TO CALL FOR ASSISTANCE. WILL CONTINUE TO MONITOR.
--- NOTE | 2018-09-05 02:15 | NUR ---
NURSING NOTE PT RESTING IN BED WITH EYES CLOSED. VISIBLE SYMMETRICAL RISE AND FALL OF CHEST, BREATHING EVEN AND UNLABORED TO ROOM AIR. NO SIGNS OF ACUTE DISTRESS NOTED. CALL LIGHT WITH PT, SAFETY PRECAUTIONS ARE IN PLACE. WILL CONTINUE TO MONITOR.
[2018-09-05] MEDS: POTASSIUM CHLORIDE 20 MEQ/PKT PACKET PO SCH ×6 (03:51→20:59)
[2018-09-05] MEDS: ONDANSETRON HCL 4 MG/2 ML VIAL IVP PRN ×4 (03:53→23:35)
--- NOTE | 2018-09-05 04:04 | NUR ---
MORPHINE ADMINISTERED PT REPORT OF SEVERE 8/10 PAIN IN LEFT SHOULDER AND RIGHT KNEE. PT REPOSITIONED, PRN PAIN MEDICATION ADMINISTERED: MORPHINE 6 MG IVP. PT INSTRUCTED TO CALL FOR ASSISTANCE. SAFETY PRECAUTIONS ARE IN PLACE. CALL LIGHT IS WITH THE PT. WILL CONTINUE TO MONITOR.
--- NOTE | 2018-09-05 06:45 | NUR ---
PAIN/MORPHINE GIVEN PT REPORTS 8/10 IN LEFT SHOULDER AND RIGHT KNEE. MORPHINE 6MG IVP GIVEN. PT INSTRUCTED TO CALL FOR ASSISTANCE. SAFETY PRECAUTIONS ARE IN PLACE. CALL LIGHT IS WITH PT. WILL CONTINUE TO MONITOR.
--- NOTE | 2018-09-05 06:52 | NUR ---
CLOSING NOTE PT RESTING IN BED, NO SIGNS OF ACUTE DISTRESS NOTED AT THIS TIME. BREATHING EVEN AND EFFORTLESSLY TO ROOM AIR. ALL NEEDS MET DURING SHIFT. WILL ENDORSE CARE TO DAY SHIFT RN.
[2018-09-05 07:30] LABS: CREATININE 1.03 mg/dL (0.55-1.30); POTASSIUM 4.4 mmol/L (3.5-5.1)
--- NOTE | 2018-09-05 07:33 | NUR ---
Opening Note: Patient laying in bed resting. Patient denies pain and discomfort. Breathing is even and unlabored, no respiratory distress noted. IV's patent and intact. SCD's refused, not placed on lower extremities. Safety precautions in place; bed in lowest position, wheels locked, side rails x3, bed alarm activated and call light within reach. No needs at this time. Will continue to monitor.
[2018-09-05] MEDS: SPIRONOLACTONE 50 MG TABLET (ALDACTONE) PO SCH (08:27)
[2018-09-05] MEDS: DULoxetine HCL 30 MG CAPSULE.DR (CYMBALTA) PO SCH (08:27)
[2018-09-05] MEDS: GABAPENTIN 100 MG CAPSULE PO SCH ×3 (08:27→20:58)
[2018-09-05] MEDS: MAGNESIUM OXIDE 400 MG TABLET PO SCH ×3 (08:28→20:59)
[2018-09-05] MEDS: CYCLOBENZAPRINE HCL 10 MG TABLET (FLEXERIL) PO SCH ×2 (08:28→20:59)
[2018-09-05] MEDS: DOCUSATE SODIUM 250 MG CAPSULE PO SCH ×2 (08:28→20:59)
[2018-09-05] MEDS: FAMOTIDINE 20 MG TABLET PO SCH ×2 (08:28→20:59)
[2018-09-05] MEDS: LORazepam 1 MG TABLET PO SCH ×2 (08:28→20:59)
[2018-09-05] MEDS: MORPHINE SULFATE 30 MG Immediate Release TABLET PO SCH ×2 (08:29→22:19)
[2018-09-05] MEDS: guaiFENesin ER 600 MG TAB PO SCH ×2 (08:29→21:00)
[2018-09-05] MEDS: aMILoride HCL 5 MG TABLET PO SCH ×2 (08:30→21:06)
--- NOTE | 2018-09-05 10:15 | NUR ---
Rounds: Patient in bed resting, no distress noted. Will continue to monitor.
--- NOTE | 2018-09-05 10:41 | NUR ---
Dietitian Recommendations * Recommend continuing regular diet per MD (RD offered [facility] diet for optimal BG control w/ diet, but pt was not interested) LP, RD Please refer to Nutrition Assessment for details.
--- NOTE | 2018-09-05 12:00 | NUR ---
Rounds: Patient laying in bed resting. Patient denies pain and discomfort. Breathing is even and unlabored with no distress noted. Morning medications tolerated well. Safety precautions in place and call light within reach. No needs at this time. Will continue to monitor.
[2018-09-05] MEDS: LEVOFLOXACIN 500 MG/D5W 100 ML IV SCH (14:31)
--- NOTE | 2018-09-05 14:32 | NUR ---
Rounds: Patient given PRN Morphine, see eMAR, will reassess. No other needs at this time. Will continue to monitor.
[2018-09-05] MEDS ORDERED: MAGNESIUM SULFATE 50 ML IV ONE (15:45)
--- NOTE | 2018-09-05 16:10 | NUR ---
CM DC PLANNING: DCP ASSESSMENT COMPLETED; CMs/DCP WILL REMAIN AVAILABLE NEEDED.
--- NOTE | 2018-09-05 16:15 | NUR ---
Rounds: Patient laying in bed resting. Patient denies pain and discomfort. Breathing is even and unlabored with no distress noted. Safety precautions in place and call light within reach. No needs at this time. Will continue to monitor.
[2018-09-05] MEDS: ALBUTEROL SULFATE 0.083% 2.5 MG/3 ML VIAL.NEB INH PRN (16:45)
--- NOTE | 2018-09-05 18:34 | NUR ---
Closing Note: Patient laying in bed resting. Patient denies pain and discomfort. Breathing is even and unlabored, no respiratory distress noted. IV's patent and intact. Safety precautions in place; bed in lowest position, wheels locked, side rails x3, bed alarm activated and call light within reach. All needs met. Will endorse plan of care to NOC, nurse.
--- NOTE | 2018-09-05 19:20 | NUR ---
OPENING NOTE RECEIVED CARE OF PT AND BEDSIDE REPORT. PT AA0X4, RESTING IN BED, NO ACUTE DISTRESS NOTED. PT INSTRUCTED TO CALL FOR ASSISTANCE, SAFETY PRECAUTIONS ARE IN PLACE. WILL CONTINUE TO MONITOR.
--- NOTE | 2018-09-05 20:55 | NUR ---
MORPHINE ADMINISTERED PT REPORTING 8/10 PAIN IN LEFT SHOULDER AND RIGHT KNEE. MORPHINE 6 MG IVP ADMINISTERED. PT INSTRUCTED TO CALL FOR ASSISTANCE. SAFETY PRECAUTIONS IN PLACE. WILL CONTINUE TO MONITOR.
[2018-09-05] MEDS: COLCHICINE 0.6 MG TABLET PO SCH (20:58)
--- NOTE | 2018-09-05 22:24 | NUR ---
ASSISTED PT TO BATHROOM PT AMBULATED TO RESTROOM WITH NURSE ASSIST. SAFETY PRECAUTIONS IN PLACE. BED IN LOWEST POSITION, CALL LIGHT WITH PT, SIDE RAILS UP. PT INSTRUCTED TO CALL FOR ASSISTANCE. WILL CONTINUE TO MONITOR.
--- NOTE | 2018-09-05 23:32 | NUR ---
ASSISTED TO RESTROOM/PAIN PT AMBULATED TO BATHROOM WITH NURSE ASSIST. PT REPORTS 8/10 PAIN IN LEFT SHOULDER AND RIGHT KNEE. WILL GIVE PRN MORPHINE ORDERED. SAFETY PRECAUTIONS IN PLACE. WILL CONTINUE TO MONITOR.
[2018-09-06] VITALS: BP_SYST 112
[2018-09-06] MEDS: ZOLPIDEM TARTRATE 5 MG TABLET PO PRN (01:26)
[2018-09-06] MEDS: ALBUTEROL SULFATE 0.083% 2.5 MG/3 ML VIAL.NEB INH PRN ×4 (01:27→21:22)
--- NOTE | 2018-09-06 01:29 | NUR ---
AMBIEN ADMINISTERED PT REPORTING RESTLESSNESS, REQUESTED AMBIEN FOR SLEEP. AMBIEN 10 MG PO ADMINISTERED. SAFETY PRECAUTIONS IN PLACE. PT INSTRUCTED TO CALL FOR HELP. WILL CONTINUE TO MONITOR.
[2018-09-06] MEDS: DIPHENHYDRAMINE INJ 50 MG/ML VIAL IVP PRN ×6 (02:28→22:34)
[2018-09-06] MEDS: MORPHINE 4 MG/ML INJ. SYRINGE IVP PRN ×4 (02:28→13:43)
--- NOTE | 2018-09-06 02:40 | NUR ---
PAIN NOTE PRN MEDICATION FOR SEVERE PAIN, ITCHINESS, AND NAUSEA ARE GIVEN AT THIS TIME PER PATIENT'S REQUEST. PATIENT IS RESTING IN BED, STABLE, NO SIGNS OF RESPIRATORY DISTRESS. CALL LIGHT IS WITHIN REACH. BED IS LOCKED, ALARMED, AND AT THE LOWEST LEVEL. Addendum: 09/07/18 at 0517 by Michelet Gauthier RN NOTE INTENDED FOR DIFFERENT TIME
--- NOTE | 2018-09-06 03:30 | NUR ---
RN ROUNDS PT RESTING COMFORTABLY WITH EYES CLOSED. BREATHING EVEN AND EFFORTLESSLY TO ROOM AIR. SAFETY PRECAUTIONS IN PLACE. WILL MONITOR.
[2018-09-06] MEDS: ONDANSETRON HCL 4 MG/2 ML VIAL IVP PRN ×4 (06:11→22:34)
--- NOTE | 2018-09-06 06:18 | NUR ---
MORPHINE ADMINISTERED PT REPORTS 8/10 RIGHT KNEE AND LEFT SHOULDER PAIN. MORPHINE 6 MG IVP ADMINISTERED. SAFETY PRECAUTIONS IN PLACE, PT INSTRUCTED TO CALL FOR HELP. WILL MONITOR.
--- NOTE | 2018-09-06 07:35 | NUR ---
CLOSING NOTE PT RESTING IN BED, EYES ARE CLOSED. BREATHING IS EVEN AND UNLABORED TO ROOM AIR. NO SIGNS OF DISTRESS NOTED. ALL NEEDS MET DURING SHIFT. CARE ENDORSED TO DAY SHIFT RN.
[2018-09-06 07:43] LABS: CALCIUM 8.7 mg/dL (8.4-11.0); CREATININE 1.01 mg/dL (0.55-1.30); POTASSIUM 3.6 mmol/L (3.5-5.1)
[2018-09-06 07:56] LABS: BASOPHILS # (AUTO) 0.1 K/uL (0.0-0.2); BASOPHILS % (AUTO) 1.1 % (0.0-2.0); EOSINOPHILS # (AUTO) 0.3 K/uL (0.0-0.4); EOSINOPHILS % (AUTO) 2.6 % (0.0-4.0); HEMATOCRIT 33.8 % (36-48); HEMOGLOBIN 11.2 g/dL (12.0-16.0); LYMPHOCYTES # (AUTO) 3.6 K/uL (1.0-5.5); MEAN CORPUSCULAR HEMOGLOBIN 29 pg (27-31); MEAN CORPUSCULAR HGB CONC 33 % (32-36); MEAN CORPUSCULAR VOLUME 87 fL (79.0-98.0); MONOCYTES # (AUTO) 0.9 K/uL (0.0-1.0); NEUTROPHILS # (AUTO) 6.3 K/uL (1.8-7.7); NEUTROPHILS % (AUTO) 56.3 % (40.0-70.0); PLATELET COUNT (AUTO) 299 K/uL (130-430); RED BLOOD CELL COUNT(AUTO) 3.89 MIL/uL (4.2-6.2); RED CELL DISTRIBUTION WIDTH 14.6 % (9.0-15.0); WHITE BLOOD COUNT (AUTO) 11.2 K/uL (4.8-10.8)
[2018-09-06 08:00] VITALS: BP_SYST 104
--- NOTE | 2018-09-06 08:00 | NUR ---
Note Pt sitting up in bed asleep after being medicated earlier this am for severe pain. No SOB/resp distress or severe pain noted. Tele unit attached and intact at this time. IV in right shoulder and right hand intact and patent at this time. No needs noted at this time. Call light within reach at this time.
[2018-09-06] MEDS: DULoxetine HCL 30 MG CAPSULE.DR (CYMBALTA) PO SCH (09:27)
[2018-09-06] MEDS: SPIRONOLACTONE 50 MG TABLET (ALDACTONE) PO SCH (09:28)
[2018-09-06] MEDS: FAMOTIDINE 20 MG TABLET PO SCH ×2 (09:28→20:23)
[2018-09-06] MEDS: CYCLOBENZAPRINE HCL 10 MG TABLET (FLEXERIL) PO SCH ×2 (09:28→20:23)
[2018-09-06] MEDS: DOCUSATE SODIUM 250 MG CAPSULE PO SCH ×2 (09:28→20:25)
[2018-09-06] MEDS: COLCHICINE 0.6 MG TABLET PO SCH ×3 (09:28→20:26)
[2018-09-06] MEDS: GABAPENTIN 100 MG CAPSULE PO SCH ×3 (09:28→20:26)
[2018-09-06] MEDS: LORazepam 1 MG TABLET PO SCH ×2 (09:28→20:25)
[2018-09-06] MEDS: MAGNESIUM OXIDE 400 MG TABLET PO SCH (09:28)
[2018-09-06] MEDS: guaiFENesin ER 600 MG TAB PO SCH (09:30)
[2018-09-06] MEDS: MORPHINE SULFATE 30 MG Immediate Release TABLET PO SCH ×2 (09:30→20:25)
[2018-09-06] MEDS: POTASSIUM CHLORIDE 20 MEQ/PKT PACKET PO SCH ×4 (09:30→20:25)
[2018-09-06] MEDS: aMILoride HCL 5 MG TABLET PO SCH ×2 (09:35→20:27)
--- NOTE | 2018-09-06 11:00 | NUR ---
Note Pt ambulated to restroom with assist and pain IVP medication was given as requested. Pt's tele unit was dc'd and returned to care tech as ordered at 1030am. Pt watching television and talking on cellphone. No needs noted. Call light within reach.
[2018-09-06] MEDS ORDERED: POTASSIUM CHLORIDE 40 MEQ, MAGNESIUM SULFATE 4 GM, LIDOCAINE JECT 2% PF 100 MG 50 MG in... IV ONE ×4 (11:45)
[2018-09-06 11:47] VITALS: BP_SYST 121
--- NOTE | 2018-09-06 12:30 | NUR ---
Note Pt sitting up in bed eating her lunch at this time. No needs noted at this time. Call light within reach.
[2018-09-06] MEDS: guaiFENesin/DEXTROMETHORPHAN 10 ML UDC PO SCH ×3 (14:00→20:26)
[2018-09-06] MEDS ORDERED: BISACODYL 10 MG/SUPPOSITORY RC PRN (14:15)
[2018-09-06] MEDS ORDERED: BISACODYL 5 MG TABLET.DR (DULCOLAX) PO ONE (14:15)
[2018-09-06] MEDS: MAGNESIUM CHLORIDE 64 MG TABLET.DR PO SCH ×3 (14:15→20:27)
[2018-09-06] MEDS ORDERED: guaiFENesin 200 MG/CODEINE 20 MG/ 10 ML UDC ONE (14:21)
[2018-09-06] MEDS: LEVOFLOXACIN 500 MG/D5W 100 ML IV SCH (14:36)
--- NOTE | 2018-09-06 14:50 | NUR ---
Note Dr Mota on the floor at 1340 assessing pt and answering questions/concerns at this time. Pt ambulated to restroom with standby assist. Medications were adjusted and ordered per pt's request and MD orders at this time. Call light within reach.
[2018-09-06 16:02] VITALS: BP_SYST 94
[2018-09-06] MEDS: MORPHINE SULFATE 10 MG/ML VIAL IVP PRN ×2 (17:53→22:40)
--- NOTE | 2018-09-06 18:45 | NUR ---
Note Pt ambulated in hallway with IV pole, had some pain in right knee. No SOB/resp distress or severe pain/discomfort noted at this time. Pt's right shoulder IV and right hand IV intact and patent at this time. Pt was checked on q1' and PRN all shift for needs and care. No needs noted. Call light within reach.
[2018-09-06 19:50] VITALS: BP_SYST 102
--- NOTE | 2018-09-06 19:51 | NUR ---
INITIAL NOTE AT INITIAL ASSESSMENT, PATIENT IS RESTING IN BED, STABLE, NO SIGNS OF RESPIRATORY DISTRESS. PATIENT VERBALIZES TOLERABLE PAIN AT THIS TIME. PLAN OF CARE FOR THE EVENING IS COMMUNICATED WITH THE PATIENT. CALL LIGHT- TEACH BACK IS SUCCESSFUL. BED IS LOCKED, ALARMED, AND AT THE LOWEST LEVEL. FALL, AND SAFETY PRECAUTIONS WILL BE IN PLACE THROUGHOUT THE SHIFT.
--- NOTE | 2018-09-06 23:43 | NUR ---
NOTE PATIENT IS RESTING IN BED, STABLE, NO SIGNS OF RESPIRATORY DISTRESS. FAMILY IS AT BEDSIDE. CALL LIGHT IS WITHIN REACH. BED IS LOCKED, ALARMED, AND AT THE LOWEST LEVEL.
--- NOTE | 2018-09-07 01:40 | NUR ---
NOTE PATIENT IS SLEEPING, STABLE, NO SIGNS OF RESPIRATORY DISTRESS. CALL LIGHT IS WITHIN REACH. BED IS LOCKED, ALARMED, AND AT THE LOWEST LEVEL.
[2018-09-07 02:12] VITALS: BP_SYST 102
--- NOTE | 2018-09-07 02:40 | NUR ---
PAIN NOTE PRN MEDICATION FOR SEVERE PAIN, ITCHINESS, AND NAUSEA ARE GIVEN AT THIS TIME PER PATIENT'S REQUEST. PATIENT IS RESTING IN BED, STABLE, NO SIGNS OF RESPIRATORY DISTRESS. CALL LIGHT IS WITHIN REACH. BED IS LOCKED, ALARMED, AND AT THE LOWEST LEVEL.
[2018-09-07] MEDS: ONDANSETRON HCL 4 MG/2 ML VIAL IVP PRN ×5 (02:51→22:43)
[2018-09-07] MEDS: DIPHENHYDRAMINE INJ 50 MG/ML VIAL IVP PRN ×5 (02:51→22:40)
[2018-09-07] MEDS: MORPHINE SULFATE 10 MG/ML VIAL IVP PRN ×3 (02:52→10:51)
--- NOTE | 2018-09-07 04:31 | NUR ---
NOTE PATIENT IS SLEEPING, STABLE, NO SIGNS OF RESPIRATORY DISTRESS. CALL LIGHT IS WITHIN REACH. BED IS LOCKED, ALARMED, AND AT THE LOWEST LEVEL.
--- NOTE | 2018-09-07 05:18 | NUR ---
NOTE PATIENT IS SLEEPING, STABLE, NO SIGNS OF RESPIRATORY DISTRESS. CALL LIGHT IS WITHIN REACH. BED IS LOCKED, ALARMED, AND AT THE LOWEST LEVEL.
[2018-09-07 05:38] LABS: BASOPHILS # (AUTO) 0.1 K/uL (0.0-0.2); BASOPHILS % (AUTO) 0.7 % (0.0-2.0); EOSINOPHILS # (AUTO) 0.4 K/uL (0.0-0.4); EOSINOPHILS % (AUTO) 3.5 % (0.0-4.0); HEMATOCRIT 33.3 % (36-48); HEMOGLOBIN 11.2 g/dL (12.0-16.0); LYMPHOCYTES # (AUTO) 3.1 K/uL (1.0-5.5); LYMPHOCYTES % (AUTO) 27.9 % (20.5-51.5); MEAN CORPUSCULAR HEMOGLOBIN 29 pg (27-31); MEAN CORPUSCULAR HGB CONC 34 % (32-36); MEAN CORPUSCULAR VOLUME 85 fL (79.0-98.0); MONOCYTES # (AUTO) 0.7 K/uL (0.0-1.0); MONOCYTES % (AUTO) 6.2 % (1.7-9.3); NEUTROPHILS % (AUTO) 61.7 % (40.0-70.0); PLATELET COUNT (AUTO) 295 K/uL (130-430); RED BLOOD CELL COUNT(AUTO) 3.92 MIL/uL (4.2-6.2); RED CELL DISTRIBUTION WIDTH 14.3 % (9.0-15.0); WHITE BLOOD COUNT (AUTO) 11.3 K/uL (4.8-10.8)
[2018-09-07 06:46] LABS: CALCIUM 9.1 mg/dL (8.4-11.0); CREATININE 1.04 mg/dL (0.55-1.30)
--- NOTE | 2018-09-07 06:49 | NUR ---
CLOSING NOTE THROUGHOUT THE SHIFT, PATIENT WAS LETHARGIC BUT WAS ABLE TO CALL FOR SEVERE PAIN MEDICATION. SHE WAS CONFUSED AT TIMES, AND FORGETFUL BUT EASILY REORIENTED. PRN MEDICATION FOR PAIN HAS BEEN GIVEN AT THIS TIME FOR PATIENT'S COMPLAINT FOR SEVERE PAIN, NAUSEA, AND ITCHINESS. PATIENT IS RESTING IN BED AT THIS TIME, STABLE, NO SIGNS OF RESPIRATORY DISTRESS. CALL LIGHT WITHIN REACH. BED IS LOCKED, ALARMED, AND AT THE LOWEST LEVEL. FALL AND SAFETY PRECAUTIONS HAVE BEEN IN PLACE THROUGHOUT THE SHIFT. WILL CONTINUE TO MONITOR UNTIL SHIFT UNTIL SHIFT REPORT IS GIVEN AT BEDSIDE TO AM NURSE.
[2018-09-07 07:55] VITALS: BP_SYST 111
--- NOTE | 2018-09-07 08:00 | NUR ---
Note Pt sitting up in bed eating her breakfast. No SOB/resp distress or severe pain/discomfort noted at this time. IV in right hand and in shoulder intact and patent at this time. No need noted at this time. Pt's bilateral lower extremities are elevated on pillows and with bed position at this time, for comfort of discomfort in lower extremities swelling at this time. Call light within reach.
--- NOTE | 2018-09-07 08:20 | NUR ---
Nutrition Update Devin Scale 18 noted. Pt admitted for chest pain, low magnesium Diet: regular diet BMI: 41.5 kg/m2 RD to follow per nutrition care standards.
[2018-09-07] MEDS: guaiFENesin/DEXTROMETHORPHAN 10 ML UDC PO SCH ×4 (08:48→22:16)
[2018-09-07] MEDS: DOCUSATE SODIUM 250 MG CAPSULE PO SCH ×2 (08:48→22:16)
[2018-09-07] MEDS: POTASSIUM CHLORIDE 20 MEQ/PKT PACKET PO SCH ×4 (08:48→22:16)
[2018-09-07] MEDS: FAMOTIDINE 20 MG TABLET PO SCH ×2 (08:48→22:15)
[2018-09-07] MEDS: COLCHICINE 0.6 MG TABLET PO SCH ×3 (08:48→22:13)
[2018-09-07] MEDS: DULoxetine HCL 30 MG CAPSULE.DR (CYMBALTA) PO SCH (08:49)
[2018-09-07] MEDS: MORPHINE SULFATE 30 MG Immediate Release TABLET PO SCH ×2 (08:49→21:00)
[2018-09-07] MEDS: CYCLOBENZAPRINE HCL 10 MG TABLET (FLEXERIL) PO SCH ×2 (08:49→22:13)
[2018-09-07] MEDS: GABAPENTIN 100 MG CAPSULE PO SCH ×3 (08:49→22:13)
[2018-09-07] MEDS: LORazepam 1 MG TABLET PO SCH ×2 (08:49→22:13)
[2018-09-07] MEDS: aMILoride HCL 5 MG TABLET PO SCH ×2 (08:50→22:19)
[2018-09-07] MEDS: SPIRONOLACTONE 50 MG TABLET (ALDACTONE) PO SCH (08:50)
[2018-09-07] MEDS: MAGNESIUM CHLORIDE 64 MG TABLET.DR PO SCH ×4 (08:51→22:18)
[2018-09-07] MEDS ORDERED: BISACODYL 5 MG TABLET.DR (DULCOLAX) PO PRN (09:00)
--- NOTE | 2018-09-07 10:30 | NUR ---
Note Pt resting in bed - pain tolerable at this time. No needs noted. Call light within reach. Pt talks to family on the cellphone and watching television as well. Television on all day.
[2018-09-07 11:39] VITALS: BP_SYST 115
--- NOTE | 2018-09-07 12:40 | NUR ---
Note Pt was seen and assessed by Dr Mota at bedside at this time. Verbal discharge instructions were given at this time. Questions/concerns were answered as well. Pt sitting up in bed eating her lunch. No needs noted at this time. Call light within reach.
[2018-09-07] MEDS ORDERED: NS IV ONE ×2 (12:45→12:47)
[2018-09-07] MEDS ORDERED: MAGNESIUM SULFATE IV ONE ×2 (12:45→12:47)
[2018-09-07] MEDS ORDERED: DOXY100C PO (14:35)
--- NOTE | 2018-09-07 15:00 | NUR ---
Note Pt's Magnesium IVPB running in right hand IV site and Levaquin IVPB hanging in right shoulder IV. No needs noted. Call light within reach.
[2018-09-07] MEDS: LEVOFLOXACIN 500 MG/D5W 100 ML IV SCH (15:33)
[2018-09-07 15:42] VITALS: BP_SYST 115
--- NOTE | 2018-09-07 17:10 | NUR ---
Note Pt asleep and denies any needs at this time. No needs noted. No SOB/resp distress or pain/discomfort noted at this time. Call light within reach.
--- NOTE | 2018-09-07 18:34 | NUR ---
Note Pt sitting up in bed eating her dinner. No SOB/resp distress or pain/discomfort was noted at this time. IV in right shoulder and hand intact and patent. Pt was checked on q1' and PRN all shift for needs and care. No needs noted at this time. Call light within reach.
[2018-09-07] MEDS: MORPHINE 4 MG/ML INJ. SYRINGE IVP PRN ×2 (18:50→22:42)
--- NOTE | 2018-09-07 19:40 | NUR ---
OPENING NOTE Received patient awake, AOx4 and sitting upright in bed eating dinner. IV to Rt shoulder is 22G SL and IV to Rt hand is 22G and has IVF infusing as ordered. Bed is locked to lowest position and bed alarm is on. Call light w/in reach. Updated board and reviewed plan of care.
[2018-09-07 20:00] VITALS: BP_SYST 108
[2018-09-07] MEDS: ALBUTEROL SULFATE 0.083% 2.5 MG/3 ML VIAL.NEB INH PRN (22:10)
--- NOTE | 2018-09-07 22:30 | NUR ---
ROUNDS Patient received due medications, I reviewed side effects and she verbalized understanding and states she is familiar with the medications. She requested her pain medications prior to discharge, which will also be administered. Will monitor.
--- NOTE | 2018-09-07 23:40 | NUR ---
Discharge Patient given D/C instructions and patient verbalized understanding. Patient refused written instructions / exit care. Prescription given. MD discussed with patient the results and treatment provided. Ambulatory with steady gait for discharge to home. Patient in stable condition, ID band removed. Two IV catheters removed, intact and dressings applied, no active bleeding. Patient educated on pain management. All belongings sent with patient.
== END 2018-09-07 23:31 | disposition home or self-care (01) | DRG 871 ==
LOC: SED 20:38 → STU 09-03 01:42 → SMU 09-06 11:02
PROVIDERS: ADMIT Internal Medicine; ATTEND Internal Medicine
DX: A41.9 Sepsis, unspecified organism (principal); J18.9 Pneumonia, unspecified organism; Z68.41 Body mass index [BMI] 40.0-44.9, adult; E83.42 Hypomagnesemia; E66.9 Obesity, unspecified; E87.6 Hypokalemia; G89.4 Chronic pain syndrome; M79.7 Fibromyalgia; M10.9 Gout, unspecified; M19.90 Unspecified osteoarthritis, unspecified site; R07.89 Other chest pain; F41.9 Anxiety disorder, unspecified; F32.9 Major depressive disorder, single episode, unspecified; E03.9 Hypothyroidism, unspecified; Z79.891 Long term (current) use of opiate analgesic; Z80.9 Family history of malignant neoplasm, unspecified; Z88.0 Allergy status to penicillin; Z91.018 Allergy to other foods; Z90.710 Acquired absence of both cervix and uterus; Z98.84 Bariatric surgery status; Z98.891 History of uterine scar from previous surgery
CPT/HCPCS: 36415; 71045; 73030; 73564; 73590-TC; 80048; 80053; 80061; 81003; 82962; 83735-TC; 83880; 84100-TC; 84443-TC; 84484; 85007; 85025; 85027; 85651-TC; 87081; 93005; 93306; 94640; 94760; 96365; 96375; 99285; G0378; J1200; J1815; J1885; J1956; J2270; J2274; J2405; J3475; J3480; J7030; J7040; J7050; J7060; J7120; J7613

== ENCOUNTER 2018-09-19 22:00 | Emergency (ER) | payer OTHER ==
[~2018-09-19] VITALS: Ht 162.6 cm; Wt 104.3 kg
[~2018-09-19 22:00] MED LIST changes: +DOXY100C PO
[2018-09-19 22:28] LABS: BASOPHILS # (AUTO) 0.2 K/uL (0.0-0.2); BASOPHILS % (AUTO) 1.6 % (0.0-2.0); EOSINOPHILS # (AUTO) 0.1 K/uL (0.0-0.4); HEMATOCRIT 39.3 % (36-48); HEMOGLOBIN 12.6 g/dL (12.0-16.0); LYMPHOCYTES # (AUTO) 3.3 K/uL (1.0-5.5); LYMPHOCYTES % (AUTO) 25.8 % (20.5-51.5); MEAN CORPUSCULAR HEMOGLOBIN 28 pg (27-31); MEAN CORPUSCULAR HGB CONC 32 % (32-36); MEAN CORPUSCULAR VOLUME 86 fL (79.0-98.0); MONOCYTES # (AUTO) 0.4 K/uL (0.0-1.0); MONOCYTES % (AUTO) 3.1 % (1.7-9.3); NEUTROPHILS % (AUTO) 68.5 % (40.0-70.0); PLATELET COUNT (AUTO) 429 K/uL (130-430); RED BLOOD CELL COUNT(AUTO) 4.58 MIL/uL (4.2-6.2)
[2018-09-19 22:50] VITALS: BP_SYST 97
[2018-09-19 22:57] LABS: ALBUMIN 3.4 g/dL (3.4-4.8); CALCIUM 8.8 mg/dL (8.4-11.0); POTASSIUM 3.3 mmol/L (3.5-5.1); TOTAL BILIRUBIN 0.4 mg/dL (0.0-1.0)
[2018-09-19] MEDS ORDERED: NACL 0.9% 1,000 ML IV ONE (23:00)
[2018-09-19] MEDS ORDERED: MAGNESIUM SULFATE 4 GM in D5W 250 ML IV ONE (23:00)
[2018-09-19] MEDS ORDERED: MAGNESIUM SULFATE 1 GM/2 ML VIAL ONE (23:28)
[2018-09-19] MEDS ORDERED: LORazepam 2 MG/ML VIAL (FOR ER USE) IVP ONE (23:30)
[2018-09-19] MEDS ORDERED: KETOROLAC TROMETHAMINE 30 MG VIAL IVP ONE (23:30)
[2018-09-19] MEDS ORDERED: COLCHICINE 0.6 MG TABLET PO ONE (23:30)
[2018-09-19] MEDS ORDERED: fentaNYL CITRATE/PF 100 MCG/2 ML AMP IVP ONE (23:45)
[2018-09-20] MEDS ORDERED: COLCHICINE 0.6 MG TABLET ONE (00:02)
[2018-09-20] MEDS ORDERED: DIPHENHYDRAMINE INJ 50 MG/ML VIAL ONE (01:07)
[2018-09-20] MEDS ORDERED: fentaNYL CITRATE/PF 100 MCG/2 ML AMP IVP ONE (02:30)
[2018-09-20] MEDS ORDERED: DIPHENHYDRAMINE INJ 50 MG/ML VIAL IVP ONE (03:30)
[2018-09-20 04:00] VITALS: BP_SYST 128
== END 2018-09-20 04:00 | disposition home or self-care (01) ==
LOC: SED 22:00
DX: R25.2 Cramp and spasm (principal); I10 Essential (primary) hypertension; F41.9 Anxiety disorder, unspecified; M79.7 Fibromyalgia; Z98.84 Bariatric surgery status; Z88.0 Allergy status to penicillin; Z91.018 Allergy to other foods; Z79.899 Other long term (current) drug therapy
CPT/HCPCS: 36415; 80053; 83735; 85025; 96365; 96366; 96375; 96376; 99283; J1200; J1885; J2060; J3010; J3475; J7030

== ENCOUNTER 2018-09-21 21:45 | Emergency (ER) | payer OTHER ==
[~2018-09-21] VITALS: Ht 162.6 cm; Wt 104.3 kg
[2018-09-21 21:48] VITALS: BP_SYST 124
[2018-09-21] MEDS ORDERED: NACL 0.9% 1,000 ML IV ONE (21:56)
[2018-09-21] MEDS ORDERED: MAGNESIUM SULFATE 50 ML IV ONE ×2 (22:00)
[2018-09-21] MEDS ORDERED: MORPHINE 4 MG/ML INJ. SYRINGE IVP ONE (22:00)
[2018-09-21] MEDS ORDERED: ONDANSETRON HCL 4 MG/2 ML VIAL IVP ONE (22:00)
[2018-09-21] MEDS ORDERED: DIPHENHYDRAMINE INJ 50 MG/ML VIAL IVP ONE (22:15)
[2018-09-21 22:37] LABS: EOSINOPHILS # (AUTO) 0.1 K/uL (0.0-0.4)
[2018-09-21 22:40] LABS: EOSINOPHILS % (AUTO) 0.7 % (0.0-4.0); MEAN CORPUSCULAR HEMOGLOBIN 28 pg (27-31)
[2018-09-21 22:50] LABS: CALCIUM 9.4 mg/dL (8.4-11.0); CREATININE 0.95 mg/dL (0.55-1.30); POTASSIUM 3.5 mmol/L (3.5-5.1)
[2018-09-21 22:56] LABS: BASOPHILS % (AUTO) 1.1 % (0.0-2.0); MEAN CORPUSCULAR VOLUME 85 fL (79.0-98.0); RED BLOOD CELL COUNT(AUTO) 5.08 MIL/uL (4.2-6.2); WHITE BLOOD COUNT (AUTO) 14.1 K/uL (4.8-10.8)
[2018-09-21 22:57] LABS: INR 0.9 (0.8-1.2); LYMPHOCYTES # (AUTO) 3.3 K/uL (1.0-5.5); LYMPHOCYTES % (AUTO) 23.5 % (20.5-51.5); MEAN CORPUSCULAR HGB CONC 33 % (32-36); MONOCYTES % (AUTO) 2.9 % (1.7-9.3); NEUTROPHILS # (AUTO) 10.1 K/uL (1.8-7.7); NEUTROPHILS % (AUTO) 71.8 % (40.0-70.0); PLATELET COUNT (AUTO) 403 K/uL (130-430); PROTHROMBIN TIME 9.6 SECS (9.5-12.5); RED CELL DISTRIBUTION WIDTH 14.6 % (9.0-15.0)
[2018-09-21 22:58] LABS: BASOPHILS # (AUTO) 0.2 K/uL (0.0-0.2); MONOCYTES # (AUTO) 0.4 K/uL (0.0-1.0)
[2018-09-21 23:00] LABS: ALBUMIN 3.8 g/dL (3.4-4.8); TOTAL BILIRUBIN 0.6 mg/dL (0.0-1.0)
[2018-09-22] MEDS ORDERED: MORPHINE 4 MG/ML INJ. SYRINGE ONE ×2 (00:12→01:21)
[2018-09-22] MEDS ORDERED: DIPHENHYDRAMINE INJ 50 MG/ML VIAL IVP ONE ×2 (00:15→01:00)
[2018-09-22] MEDS ORDERED: MORPHINE 4 MG/ML INJ. SYRINGE IVP ONE ×2 (01:00)
[2018-09-22 03:01] VITALS: BP_SYST 124
== END 2018-09-22 02:59 | disposition home or self-care (01) ==
LOC: SED 21:45
DX: K29.00 Acute gastritis without bleeding (principal); G89.29 Other chronic pain; E83.42 Hypomagnesemia; I10 Essential (primary) hypertension; F41.9 Anxiety disorder, unspecified; M79.7 Fibromyalgia; M10.9 Gout, unspecified; Z90.710 Acquired absence of both cervix and uterus; Z88.0 Allergy status to penicillin; Z91.018 Allergy to other foods; Z79.899 Other long term (current) drug therapy
CPT/HCPCS: 36415; 71045; 80053; 82150; 82550; 83605; 83690; 83735; 84484; 85025; 85610; 85730; 87040; 93005; 96365; 96366; 96367; 96375; 99284; J1200 ×2; J1956; J2270 ×2; J2405; J7030; J3475

== ENCOUNTER 2018-09-23 21:06 | Emergency (ER) | payer OTHER ==
[~2018-09-23] VITALS: Ht 162.6 cm; Wt 104.3 kg
[2018-09-23 21:23] VITALS: BP_SYST 129
[2018-09-23] MEDS ORDERED: fentaNYL CITRATE/PF 100 MCG/2 ML AMP IVP ONE (22:00)
[2018-09-23] MEDS ORDERED: NACL 0.9% 1,000 ML IV ONE (22:00)
[2018-09-23] MEDS ORDERED: DIPHENHYDRAMINE INJ 50 MG/ML VIAL IVP ONE (22:00)
[2018-09-23] MEDS ORDERED: PROCHLORPERAZINE EDISYLATE 10 MG/2 ML VIAL IVP ONE (22:00)
[2018-09-23 22:07] LABS: CALCIUM 9.7 mg/dL (8.4-11.0); CREATININE 1.16 mg/dL (0.55-1.30); POTASSIUM 3.5 mmol/L (3.5-5.1)
[2018-09-23 22:13] LABS: ALBUMIN 4.1 g/dL (3.4-4.8); TOTAL BILIRUBIN 0.6 mg/dL (0.0-1.0)
[2018-09-23 22:33] LABS: BASOPHILS # (AUTO) 0.1 K/uL (0.0-0.2); BASOPHILS % (AUTO) 0.4 % (0.0-2.0); EOSINOPHILS # (AUTO) 0.1 K/uL (0.0-0.4); EOSINOPHILS % (AUTO) 0.6 % (0.0-4.0); HEMATOCRIT 43.1 % (36-48); HEMOGLOBIN 14.3 g/dL (12.0-16.0); LYMPHOCYTES # (AUTO) 3.1 K/uL (1.0-5.5); LYMPHOCYTES % (AUTO) 19.9 % (20.5-51.5); MEAN CORPUSCULAR HEMOGLOBIN 28 pg (27-31); MEAN CORPUSCULAR HGB CONC 33 % (32-36); MEAN CORPUSCULAR VOLUME 85 fL (79.0-98.0); MONOCYTES # (AUTO) 0.7 K/uL (0.0-1.0); MONOCYTES % (AUTO) 4.7 % (1.7-9.3); NEUTROPHILS # (AUTO) 11.6 K/uL (1.8-7.7); NEUTROPHILS % (AUTO) 74.4 % (40.0-70.0); PLATELET COUNT (AUTO) 487 K/uL (130-430); RED BLOOD CELL COUNT(AUTO) 5.07 MIL/uL (4.2-6.2); RED CELL DISTRIBUTION WIDTH 14.3 % (9.0-15.0); WHITE BLOOD COUNT (AUTO) 15.6 K/uL (4.8-10.8)
[2018-09-23] MEDS ORDERED: MAGNESIUM SULFATE IN WATER 100 ML IV ONE (22:45)
[2018-09-23] MEDS ORDERED: MAGNESIUM SULFATE 100 ML IV ONE (22:59)
[2018-09-23] MEDS ORDERED: MAGNESIUM SULFATE 1 GM/2 ML VIAL IVP ONE (23:00)
[2018-09-24] MEDS ORDERED: ONDANSETRON HCL 4 MG/2 ML VIAL IVP ONE
[2018-09-24] MEDS ORDERED: KETAMINE 30 MG/3 ML SYRINGE 30 MG in NS 100 ML IV ONE ×2
[2018-09-24] MEDS ORDERED: fentaNYL CITRATE/PF 100 MCG/2 ML AMP IVP ONE
[2018-09-24] MEDS ORDERED: KETAMINE 30 MG/3 ML SYRINGE ONE (00:01)
[2018-09-24] MEDS ORDERED: NACL 0.9% 1,000 ML IV ONE (00:15)
[2018-09-24 01:02] VITALS: BP_SYST 115
== END 2018-09-24 01:02 | disposition home or self-care (01) ==
LOC: SED 21:06
DX: K29.70 Gastritis, unspecified, without bleeding (principal); E83.42 Hypomagnesemia; M25.512 Pain in left shoulder; I10 Essential (primary) hypertension; F41.9 Anxiety disorder, unspecified; M79.7 Fibromyalgia; Z88.0 Allergy status to penicillin; Z91.018 Allergy to other foods; Z79.899 Other long term (current) drug therapy
CPT/HCPCS: 36415; 73030; 80053; 83690; 83735; 85025; 96361; 96374; 96375; 99284; J0780; J1200; J2405; J3010 ×2; J3475 ×2; J7030

== ENCOUNTER 2018-09-26 22:42 | Emergency (ER) | payer OTHER ==
[~2018-09-26] VITALS: Ht 162.6 cm; Wt 104.3 kg
[2018-09-26 22:54] VITALS: BP_SYST 101
[2018-09-26] MEDS ORDERED: MAGNESIUM SULFATE 1 GM/2 ML VIAL IVP ONE (23:00)
[2018-09-26] MEDS ORDERED: MORPHINE 4 MG/ML INJ. SYRINGE IVP ONE (23:00)
[2018-09-26] MEDS ORDERED: ONDANSETRON HCL 4 MG/2 ML VIAL IVP ONE (23:00)
[2018-09-26] MEDS ORDERED: NACL 0.9% 1,000 ML IV ONE (23:00)
[2018-09-26] MEDS ORDERED: DIPHENHYDRAMINE INJ 50 MG/ML VIAL IVP ONE (23:00)
[2018-09-26 23:13] LABS: BASOPHILS # (AUTO) 0.1 K/uL (0.0-0.2); BASOPHILS % (AUTO) 0.8 % (0.0-2.0); EOSINOPHILS # (AUTO) 0.1 K/uL (0.0-0.4); EOSINOPHILS % (AUTO) 0.8 % (0.0-4.0); HEMATOCRIT 40.5 % (36-48); HEMOGLOBIN 13.3 g/dL (12.0-16.0); LYMPHOCYTES # (AUTO) 3.7 K/uL (1.0-5.5); LYMPHOCYTES % (AUTO) 25.7 % (20.5-51.5); MEAN CORPUSCULAR HEMOGLOBIN 28 pg (27-31); MEAN CORPUSCULAR HGB CONC 33 % (32-36); MEAN CORPUSCULAR VOLUME 86 fL (79.0-98.0); MONOCYTES # (AUTO) 0.7 K/uL (0.0-1.0); MONOCYTES % (AUTO) 4.9 % (1.7-9.3); NEUTROPHILS # (AUTO) 9.9 K/uL (1.8-7.7); NEUTROPHILS % (AUTO) 67.8 % (40.0-70.0); PLATELET COUNT (AUTO) 432 K/uL (130-430); RED BLOOD CELL COUNT(AUTO) 4.74 MIL/uL (4.2-6.2); RED CELL DISTRIBUTION WIDTH 14.7 % (9.0-15.0); WHITE BLOOD COUNT (AUTO) 14.5 K/uL (4.8-10.8)
[2018-09-26 23:24] LABS: CALCIUM 9.2 mg/dL (8.4-11.0); CREATININE 0.97 mg/dL (0.55-1.30)
[2018-09-26 23:30] LABS: PHOSPHORUS 4.1 mg/dL (2.7-4.5); TOTAL BILIRUBIN 0.5 mg/dL (0.0-1.0)
[2018-09-26] MEDS ORDERED: fentaNYL CITRATE/PF 100 MCG/2 ML AMP IVP ONE (23:45)
[2018-09-27] MEDS ORDERED: KETAMINE 30 MG/3 ML SYRINGE IVP ONE
[2018-09-27 00:01] LABS: BILIRUBIN,URINE NEGATIVE (NEGATIVE); BLOOD, URINE NEGATIVE (NEGATIVE); CLARITY/URINE CLEAR (CLEAR); COLOR,URINE YELLOW (YELLOW); GLUCOSE,URINE NEGATIVE (NEGATIVE); KETONES,URINE NEGATIVE (NEGATIVE); LEUKOCYTE ESTERASE ,URINE NEGATIVE (NEGATIVE); NITRITE, URINE NEGATIVE (NEGATIVE); PH,URINE 6.5 (5.0-8.0); PROTEIN URINE NEGATIVE (NEGATIVE); UROBILINOGEN,URINE 0.2 (0.2-1.0)
[2018-09-27] MEDS ORDERED: HALOPERIDOL LACTATE 5 MG/ML VIAL IVP ONE (00:45)
[2018-09-27 01:51] VITALS: BP_SYST 110
== END 2018-09-27 01:51 | disposition home or self-care (01) ==
LOC: SED 22:42
DX: G89.29 Other chronic pain (principal); R19.7 Diarrhea, unspecified; R11.2 Nausea with vomiting, unspecified; R10.9 Unspecified abdominal pain; I10 Essential (primary) hypertension; Z90.710 Acquired absence of both cervix and uterus; Z88.0 Allergy status to penicillin; Z91.018 Allergy to other foods; Z79.899 Other long term (current) drug therapy
CPT/HCPCS: 36415; 74176; 80053; 81003; 83735; 84100; 85025; 96365; 96375; 99284; J1200; J1630; J2270; J2405; J3010; J3475; J7030

== ENCOUNTER 2018-09-29 20:58 | Emergency (ER) | payer OTHER ==
[~2018-09-29] VITALS: Ht 162.6 cm; Wt 104.3 kg
[2018-09-29 21:05] VITALS: BP_SYST 119
[2018-09-29] MEDS ORDERED: DIPHENHYDRAMINE INJ 50 MG/ML VIAL IVP ONE (23:45)
[2018-09-29] MEDS ORDERED: KETOROLAC TROMETHAMINE 30 MG VIAL IVP ONE (23:45)
[2018-09-29] MEDS ORDERED: MORPHINE SULFATE 10 MG/ML VIAL IVP ONE (23:45)
[2018-09-29 23:48] LABS: CALCIUM 9.5 mg/dL (8.4-11.0); CREATININE 1.08 mg/dL (0.55-1.30); POTASSIUM 3.1 mmol/L (3.5-5.1)
[2018-09-29 23:53] LABS: ALBUMIN 4.1 g/dL (3.4-4.8); TOTAL BILIRUBIN 0.8 mg/dL (0.0-1.0)
[2018-09-30] MEDS ORDERED: ONDANSETRON 4 MG ODT TAB PO ONE (01:00)
[2018-09-30] MEDS ORDERED: DIPHENHYDRAMINE INJ 50 MG/ML VIAL IVP ONE (01:00)
[2018-09-30] MEDS ORDERED: MORPHINE 4 MG/ML INJ. SYRINGE IVP ONE (01:00)
[2018-09-30] MEDS ORDERED: POTASSIUM CHLORIDE 20 MEQ TAB.PRT.SR PO ONE (01:00)
[2018-09-30] MEDS ORDERED: MAGNESIUM SULFATE 50 ML IV ONE (01:00)
[2018-09-30] MEDS ORDERED: NACL 0.9% 1,000 ML IV ONE (01:00)
[2018-09-30 03:03] VITALS: BP_SYST 119
== END 2018-09-30 03:03 | disposition home or self-care (01) ==
LOC: SED 20:58
DX: R25.2 Cramp and spasm (principal); E83.42 Hypomagnesemia; E87.6 Hypokalemia; I10 Essential (primary) hypertension; F41.9 Anxiety disorder, unspecified; M79.7 Fibromyalgia; Z90.710 Acquired absence of both cervix and uterus; Z88.0 Allergy status to penicillin; Z91.018 Allergy to other foods; Z79.899 Other long term (current) drug therapy
CPT/HCPCS: 36415; 80053; 83735; 96365; 96366; 96375; 96376; 99283; J1200; J1885; J2270 ×2; J3475; J7030; Q0162

== ENCOUNTER 2018-10-04 16:34 | Inpatient (IN) | payer OTHER ==
[~2018-10-04] VITALS: Ht 162.6 cm; Wt 97.1 kg
[2018-10-04 16:49] VITALS: BP_SYST 105
[2018-10-04] MEDS ORDERED: KETOROLAC TROMETHAMINE 30 MG VIAL IVP ONE (17:45)
[2018-10-04 17:50] LABS: CALCIUM 8.1 mg/dL (8.4-11.0); CREATININE 0.96 mg/dL (0.55-1.30)
[2018-10-04 17:54] LABS: POTASSIUM 2.6 mmol/L (3.5-5.1)
[2018-10-04] MEDS ORDERED: MAGNESIUM SULFATE 1 GM in NS 100 ML IV ONE (18:00)
[2018-10-04] MEDS ORDERED: POTASSIUM CHLORIDE 20 MEQ/PKT PACKET PO ONE (18:00)
[2018-10-04] MEDS ORDERED: KCL 10 mEq in D5/0.45NS 1000mL 1,000 ML IV SCH (18:00)
[2018-10-04] MEDS ORDERED: fentaNYL CITRATE/PF 100 MCG/2 ML AMP IVP ONE (18:15)
[2018-10-04] MEDS ORDERED: MAGNESIUM SULFATE 1 GM/2 ML VIAL ONE (18:17)
[2018-10-04] MEDS ORDERED: [UNRECOGNIZED DRUG - OTHER] IV ONE ×4 (18:30)
[2018-10-04] MEDS ORDERED: DIPHENHYDRAMINE INJ 50 MG/ML VIAL IVP ONE (18:30)
[2018-10-04] MEDS ORDERED: MAGNESIUM SULFATE IV ONE ×4 (18:30)
[2018-10-04] MEDS ORDERED: POTASSIUM CHLORIDE IV ONE ×4 (18:30)
[2018-10-04] MEDS ORDERED: ACETAMINOPHEN 325 MG TABLET PO PRN (18:45)
[2018-10-04] MEDS ORDERED: COLCHICINE 0.6 MG TABLET PO PRN (18:45)
[2018-10-04] MEDS: MORPHINE 4 MG/ML INJ. SYRINGE IVP PRN ×2 (19:06→23:07)
[2018-10-04] MEDS: ONDANSETRON HCL 4 MG/2 ML VIAL IVP PRN ×2 (19:07→23:07)
[2018-10-04 19:14] VITALS: BP_SYST 109
[2018-10-04 19:20] VITALS: BP_SYST 105
[2018-10-04 20:00] VITALS: BP_SYST 109
[2018-10-04] MEDS: aMILoride HCL 5 MG TABLET PO SCH (21:00)
[2018-10-04] MEDS: MAGNES PO SCH (21:00)
[2018-10-04] MEDS: CYCLOBENZAPRINE HCL 10 MG TABLET (FLEXERIL) PO SCH (21:19)
[2018-10-04] MEDS: LORazepam 1 MG TABLET PO SCH (21:19)
[2018-10-04] MEDS: CHOLECALCIFEROL (VITAMIN D3) 2,000 UNIT TABLET PO SCH (21:19)
[2018-10-04] MEDS: POTASSIUM CHLORIDE 20 MEQ TAB.PRT.SR PO SCH (21:20)
[2018-10-04] MEDS: MORPHINE SULFATE 30 MG Immediate Release TABLET PO SCH (21:20)
[2018-10-04] MEDS: DOXYCYCLINE HYCLATE 100 MG CAPSULE PO SCH (21:27)
[2018-10-04] MEDS: DIPHENHYDRAMINE INJ 50 MG/ML VIAL IVP PRN (23:07)
[2018-10-05] VITALS: BP_SYST 125
[2018-10-05] MEDS: ONDANSETRON HCL 4 MG/2 ML VIAL IVP PRN ×5 (03:03→19:53)
[2018-10-05] MEDS: DIPHENHYDRAMINE INJ 50 MG/ML VIAL IVP PRN ×5 (03:03→19:54)
[2018-10-05] MEDS: MORPHINE 4 MG/ML INJ. SYRINGE IVP PRN ×3 (03:04→11:03)
[2018-10-05 08:00] VITALS: BP_SYST 150
[2018-10-05] MEDS: DULoxetine HCL 30 MG CAPSULE.DR (CYMBALTA) PO SCH (08:55)
[2018-10-05] MEDS: CYCLOBENZAPRINE HCL 10 MG TABLET (FLEXERIL) PO SCH ×2 (08:55→20:43)
[2018-10-05] MEDS: POTASSIUM CHLORIDE 20 MEQ TAB.PRT.SR PO SCH ×4 (08:55→20:41)
[2018-10-05] MEDS: DOXYCYCLINE HYCLATE 100 MG CAPSULE PO SCH ×2 (08:55→20:41)
[2018-10-05] MEDS: SPIRONOLACTONE 50 MG TABLET (ALDACTONE) PO SCH (08:56)
[2018-10-05] MEDS: CHOLECALCIFEROL (VITAMIN D3) 2,000 UNIT TABLET PO SCH ×2 (08:56→20:41)
[2018-10-05] MEDS: LORazepam 1 MG TABLET PO SCH ×2 (08:57→20:41)
[2018-10-05] MEDS: MORPHINE SULFATE 30 MG Immediate Release TABLET PO SCH ×2 (08:58→21:00)
[2018-10-05] MEDS: MAGNES PO SCH ×4 (09:00→20:42)
[2018-10-05] MEDS: aMILoride HCL 5 MG TABLET PO SCH ×2 (09:00→20:44)
[2018-10-05 12:14] VITALS: BP_SYST 125
[2018-10-05 12:30] LABS: CALCIUM 8.5 mg/dL (8.4-11.0); CREATININE 0.8 mg/dL (0.55-1.30); POTASSIUM 3.4 mmol/L (3.5-5.1)
[2018-10-05 12:33] LABS: BASOPHILS % (AUTO) 0.7 % (0.0-2.0); EOSINOPHILS # (AUTO) 0.3 K/uL (0.0-0.4); EOSINOPHILS % (AUTO) 4.2 % (0.0-4.0); HEMATOCRIT 34.7 % (36-48); HEMOGLOBIN 11.7 g/dL (12.0-16.0); LYMPHOCYTES # (AUTO) 1.8 K/uL (1.0-5.5); LYMPHOCYTES % (AUTO) 27.2 % (20.5-51.5); MEAN CORPUSCULAR HEMOGLOBIN 29 pg (27-31); MEAN CORPUSCULAR HGB CONC 34 % (32-36); MEAN CORPUSCULAR VOLUME 86 fL (79.0-98.0); MONOCYTES # (AUTO) 0.5 K/uL (0.0-1.0); MONOCYTES % (AUTO) 7.6 % (1.7-9.3); NEUTROPHILS % (AUTO) 60.3 % (40.0-70.0); PLATELET COUNT (AUTO) 252 K/uL (130-430); RED BLOOD CELL COUNT(AUTO) 4.01 MIL/uL (4.2-6.2); RED CELL DISTRIBUTION WIDTH 14.9 % (9.0-15.0); WHITE BLOOD COUNT (AUTO) 6.6 K/uL (4.8-10.8)
[2018-10-05 12:35] LABS: ALBUMIN 3.4 g/dL (3.4-4.8); TOTAL BILIRUBIN 0.6 mg/dL (0.0-1.0)
[2018-10-05] MEDS: MORPHINE SULFATE 10 MG/ML VIAL IVP PRN ×2 (15:31→19:53)
[2018-10-05 16:16] VITALS: BP_SYST 140
[2018-10-05 19:05] VITALS: BP_SYST 122
[2018-10-05] MEDS: ZOLPIDEM TARTRATE 5 MG TABLET PO PRN (20:50)
[2018-10-05] MEDS: ALBUTEROL SULFATE 0.083% 2.5 MG/3 ML VIAL.NEB INH PRN (22:57)
[2018-10-06] MEDS: DIPHENHYDRAMINE INJ 50 MG/ML VIAL IVP PRN ×6 (00:02→22:42)
[2018-10-06] MEDS: ONDANSETRON HCL 4 MG/2 ML VIAL IVP PRN ×6 (00:02→22:42)
[2018-10-06] MEDS: MORPHINE SULFATE 10 MG/ML VIAL IVP PRN ×4 (00:03→14:21)
[2018-10-06 00:48] VITALS: BP_SYST 102; BP_SYST 128
[2018-10-06 08:05] VITALS: BP_SYST 129
[2018-10-06] MEDS: DOXYCYCLINE HYCLATE 100 MG CAPSULE PO SCH ×2 (08:12→21:00)
[2018-10-06] MEDS: POTASSIUM CHLORIDE 20 MEQ TAB.PRT.SR PO SCH ×4 (08:12→21:01)
[2018-10-06] MEDS: DULoxetine HCL 30 MG CAPSULE.DR (CYMBALTA) PO SCH (08:13)
[2018-10-06] MEDS: CHOLECALCIFEROL (VITAMIN D3) 2,000 UNIT TABLET PO SCH ×2 (08:13→21:01)
[2018-10-06] MEDS: SPIRONOLACTONE 50 MG TABLET (ALDACTONE) PO SCH (08:13)
[2018-10-06] MEDS: CYCLOBENZAPRINE HCL 10 MG TABLET (FLEXERIL) PO SCH ×2 (08:14→21:01)
[2018-10-06] MEDS: MORPHINE SULFATE 30 MG Immediate Release TABLET PO SCH ×2 (08:14→21:00)
[2018-10-06] MEDS: LORazepam 1 MG TABLET PO SCH ×2 (08:14→21:01)
[2018-10-06] MEDS: aMILoride HCL 5 MG TABLET PO SCH ×2 (08:15→21:03)
[2018-10-06] MEDS: MAGNES PO SCH ×4 (08:15→21:02)
[2018-10-06] MEDS: ALBUTEROL SULFATE 0.083% 2.5 MG/3 ML VIAL.NEB INH PRN (09:00)
[2018-10-06 15:07] LABS: CALCIUM 8.6 mg/dL (8.4-11.0); CREATININE 1.05 mg/dL (0.55-1.30); POTASSIUM 3.5 mmol/L (3.5-5.1)
[2018-10-06 16:00] VITALS: BP_SYST 133
[2018-10-06] MEDS ORDERED: POTASSIUM CHLORIDE 40 MEQ, MAGNESIUM SULFATE 4 GM, LIDOCAINE JECT 2% PF 100 MG 50 MG in... IV ONE ×4 (16:45)
[2018-10-06] MEDS ORDERED: IPRATROPIUM/ALBUTEROL SULFATE 3 ML AMPUL.NEB (DUONEB) INH PRN (16:45)
[2018-10-06] MEDS: MORPHINE 4 MG/ML INJ. SYRINGE IVP PRN ×2 (18:23→22:42)
[2018-10-06 20:15] VITALS: BP_SYST 132
[2018-10-06] MEDS: ZOLPIDEM TARTRATE 5 MG TABLET PO PRN (23:45)
[2018-10-07] VITALS (9 sets, daily range): BP systolic 111–147
[2018-10-07] MEDS: PROMETHAZINE 6.25 MG/ CODEINE 10 MG/ 5 ML PO PRN ×2 (01:48→09:41)
[2018-10-07] MEDS: POTASSIUM CHLORIDE 20 MEQ TAB.PRT.SR PO SCH ×5 (01:49→17:41)
[2018-10-07] MEDS: ONDANSETRON HCL 4 MG/2 ML VIAL IVP PRN ×5 (02:33→18:19)
[2018-10-07] MEDS: DIPHENHYDRAMINE INJ 50 MG/ML VIAL IVP PRN ×5 (02:33→18:19)
[2018-10-07] MEDS: MORPHINE 4 MG/ML INJ. SYRINGE IVP PRN ×5 (02:34→18:20)
[2018-10-07 07:43] LABS: CALCIUM 8.8 mg/dL (8.4-11.0); CREATININE 0.93 mg/dL (0.55-1.30); POTASSIUM 4.1 mmol/L (3.5-5.1)
[2018-10-07 07:52] LABS: BASOPHILS # (AUTO) 0.1 K/uL (0.0-0.2); BASOPHILS % (AUTO) 0.8 % (0.0-2.0); EOSINOPHILS # (AUTO) 0.3 K/uL (0.0-0.4); EOSINOPHILS % (AUTO) 4.9 % (0.0-4.0); HEMATOCRIT 33.6 % (36-48); HEMOGLOBIN 11.1 g/dL (12.0-16.0); LYMPHOCYTES # (AUTO) 1.9 K/uL (1.0-5.5); LYMPHOCYTES % (AUTO) 26.8 % (20.5-51.5); MEAN CORPUSCULAR HEMOGLOBIN 28 pg (27-31); MEAN CORPUSCULAR HGB CONC 33 % (32-36); MEAN CORPUSCULAR VOLUME 86 fL (79.0-98.0); MONOCYTES # (AUTO) 0.8 K/uL (0.0-1.0); MONOCYTES % (AUTO) 10.8 % (1.7-9.3); NEUTROPHILS % (AUTO) 56.7 % (40.0-70.0); PLATELET COUNT (AUTO) 248 K/uL (130-430); RED BLOOD CELL COUNT(AUTO) 3.92 MIL/uL (4.2-6.2); RED CELL DISTRIBUTION WIDTH 14.8 % (9.0-15.0); WHITE BLOOD COUNT (AUTO) 7.1 K/uL (4.8-10.8)
[2018-10-07] MEDS: DULoxetine HCL 30 MG CAPSULE.DR (CYMBALTA) PO SCH (08:13)
[2018-10-07] MEDS: CHOLECALCIFEROL (VITAMIN D3) 2,000 UNIT TABLET PO SCH (08:13)
[2018-10-07] MEDS: DOXYCYCLINE HYCLATE 100 MG CAPSULE PO SCH (08:13)
[2018-10-07] MEDS: CYCLOBENZAPRINE HCL 10 MG TABLET (FLEXERIL) PO SCH (08:13)
[2018-10-07] MEDS: SPIRONOLACTONE 50 MG TABLET (ALDACTONE) PO SCH (08:13)
[2018-10-07] MEDS: LORazepam 1 MG TABLET PO SCH (08:13)
[2018-10-07] MEDS: MAGNES PO SCH ×3 (08:15→17:42)
[2018-10-07] MEDS: MORPHINE SULFATE 30 MG Immediate Release TABLET PO SCH (08:15)
[2018-10-07] MEDS: aMILoride HCL 5 MG TABLET PO SCH (08:16)
[2018-10-07] MEDS ORDERED: MAGNESIUM SULFATE 4 GM in D5W 250 ML IV ONE (11:45)
[2018-10-07] MEDS ORDERED: IPRA4AER INH (12:06)
[2018-10-07] MEDS ORDERED: DOXY-168 PO (12:06)
== END 2018-10-07 19:27 | disposition home or self-care (01) | DRG 641 ==
LOC: SED 16:34 → STU 18:24
PROVIDERS: ADMIT Internal Medicine; ATTEND Internal Medicine
DX: E87.6 Hypokalemia (principal); N25.89 Other disorders resulting from impaired renal tubular function; M11.20 Other chondrocalcinosis, unspecified site; E83.42 Hypomagnesemia; J20.9 Acute bronchitis, unspecified; I10 Essential (primary) hypertension; F41.9 Anxiety disorder, unspecified; F32.9 Major depressive disorder, single episode, unspecified; G89.4 Chronic pain syndrome; E66.9 Obesity, unspecified; E03.9 Hypothyroidism, unspecified; Z88.0 Allergy status to penicillin; Z91.018 Allergy to other foods; Z79.899 Other long term (current) drug therapy; Z90.710 Acquired absence of both cervix and uterus; Z68.36 Body mass index [BMI] 36.0-36.9, adult
CPT/HCPCS: 36415; 71045; 80048; 80053; 83735-TC; 85025; 87081; 94640; 94760; 96365; 96375; 99285; G0378; J1200; J1885; J2270; J2274; J2405; J3010; J3475; J3480; J7050; J7060; J7613; J7620

== ENCOUNTER 2018-10-10 19:26 | Emergency (ER) | payer OTHER ==
[~2018-10-10] VITALS: Ht 162.6 cm; Wt 104.3 kg
[~2018-10-10 19:26] MED LIST changes: +DOXY-168 PO; +IPRA4AER INH
[2018-10-10 19:41] VITALS: BP_SYST 111
--- NOTE | 2018-10-10 19:55 | NUR ---
Patient to ER bed 04 to gown for evaluation. Side rails up. Report given to ABHILASH Ghosh.
--- NOTE | 2018-10-10 19:58 | NUR ---
Patient to ER bed 6 to gown for evaluation. Side rails up.
--- NOTE | 2018-10-10 20:05 | NUR ---
Patient arrived from home aaox4 and able to verbalize her needs. Patient was admitted prevously and discharged on October 07. Complaints of cough since discharge, N/V and diarrhea today, sob, sweating, and, generalized weakness. Denies any chest pain or fever. Patient is ambulatory. 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
[2018-10-10] MEDS ORDERED: NACL 0.9% 1,000 ML IV ONE (20:16)
--- NOTE | 2018-10-10 20:20 | NUR ---
ER Dr. Stephens at bedside examining patient.
[2018-10-10] MEDS ORDERED: IPRATROPIUM BROM 0.5 MG/2.5 ML VIAL.NEB (ATROVENT) IH ONE (20:30)
[2018-10-10] MEDS ORDERED: LevALBUTEROL HCL 1.25 MG/0.5 ML *CONC.* VIAL.NEB (XOPENEX CONC.) INH ONE ×2 (20:30→22:30)
[2018-10-10] MEDS ORDERED: PROMETHAZINE 6.25 MG/ CODEINE 10 MG/ 5 ML PO ONE (20:30)
[2018-10-10] MEDS ORDERED: ONDANSETRON HCL 4 MG/2 ML VIAL IVP ONE (20:30)
[2018-10-10 20:51] LABS: BASOPHILS # (AUTO) 0.1 K/uL (0.0-0.2); BASOPHILS % (AUTO) 0.7 % (0.0-2.0); EOSINOPHILS # (AUTO) 0.2 K/uL (0.0-0.4); EOSINOPHILS % (AUTO) 1.4 % (0.0-4.0); HEMATOCRIT 44.8 % (36-48); HEMOGLOBIN 14.4 g/dL (12.0-16.0); LYMPHOCYTES # (AUTO) 2.9 K/uL (1.0-5.5); LYMPHOCYTES % (AUTO) 23.5 % (20.5-51.5); MEAN CORPUSCULAR HEMOGLOBIN 27 pg (27-31); MEAN CORPUSCULAR HGB CONC 32 % (32-36); MEAN CORPUSCULAR VOLUME 85 fL (79.0-98.0); MONOCYTES # (AUTO) 0.4 K/uL (0.0-1.0); MONOCYTES % (AUTO) 2.9 % (1.7-9.3); NEUTROPHILS # (AUTO) 8.9 K/uL (1.8-7.7); NEUTROPHILS % (AUTO) 71.5 % (40.0-70.0); PLATELET COUNT (AUTO) 462 K/uL (130-430); RED BLOOD CELL COUNT(AUTO) 5.27 MIL/uL (4.2-6.2); RED CELL DISTRIBUTION WIDTH 14.4 % (9.0-15.0); WHITE BLOOD COUNT (AUTO) 12.5 K/uL (4.8-10.8)
[2018-10-10 20:52] LABS: CALCIUM 9.8 mg/dL (8.4-11.0); CREATININE 1.19 mg/dL (0.55-1.30); POTASSIUM 3.9 mmol/L (3.5-5.1)
[2018-10-10 20:52] LABS: BLOOD, URINE NEGATIVE (NEGATIVE); CLARITY/URINE SL HAZY (CLEAR); COLOR,URINE YELLOW (YELLOW); GLUCOSE,URINE NEGATIVE (NEGATIVE); KETONES,URINE TRACE (NEGATIVE); LEUKOCYTE ESTERASE ,URINE TRACE (NEGATIVE); NITRITE, URINE NEGATIVE (NEGATIVE); PH,URINE >=9.0 (5.0-8.0); PROTEIN URINE 1+ (NEGATIVE); UROBILINOGEN,URINE 0.2 (0.2-1.0)
[2018-10-10 20:57] LABS: ALBUMIN 3.8 g/dL (3.4-4.8); PROTHROMBIN TIME 9.9 SECS (9.5-12.5); TOTAL BILIRUBIN 0.4 mg/dL (0.0-1.0)
--- NOTE | 2018-10-10 21:00 | NUR ---
# 20 gauge angiocath placed to Left AC. Use of asceptic technique. Opsite placed over site. Blood return noted. Blood for lab drawn from site. Flushed with 10 cc of normal saline. No evidence of infiltration noted. Patient tolerated well.
[2018-10-10 21:27] LABS: BACTERIA,URINE FEW /HPF (None Seen); RBC,URINE 0-3 /HPF (0-3); WBC,URINE 0-3 /HPF (0-3)
[2018-10-10 21:28] LABS: BILIRUBIN,URINE 1+ (NEGATIVE); MUCUS,URINE None Seen /LPF (None Seen)
[2018-10-10] MEDS ORDERED: DIPHENHYDRAMINE INJ 50 MG/ML VIAL IVP ONE ×2 (21:30→23:30)
[2018-10-10] MEDS ORDERED: MORPHINE 4 MG/ML INJ. SYRINGE IVP ONE ×2 (21:30→23:30)
[2018-10-10] MEDS ORDERED: MAGNESIUM SULFATE IV ONE (21:45)
[2018-10-10] MEDS ORDERED: MAGNESIUM SULFATE 50 ML IV ONE ×2 (22:01→22:30)
[2018-10-10] MEDS ORDERED: cefTRIAXone 1 GM IVPB PREMIX 50 ML IV ONE (22:30)
[2018-10-11] MEDS ORDERED: DIPHENHYDRAMINE INJ 50 MG/ML VIAL IVP ONE (02:00)
[2018-10-11] MEDS ORDERED: MORPHINE 4 MG/ML INJ. SYRINGE IVP ONE (02:00)
[2018-10-11 02:50] VITALS: BP_SYST 120
--- NOTE | 2018-10-11 02:50 | NUR ---
Patient given written and verbal discharge instructions and verbalizes understanding. ER MD discussed with patient the results and treatment provided. Patient in stable condition. ID arm band removed. IV catheter removed intact and dressing applied, no active bleeding. Rx of promethazine given. Patient educated on pain management and to follow up with PMD. Pain Scale 0/10. Opportunity for questions provided and answered. Medication side effect fact sheet provided.
== END 2018-10-11 02:50 | disposition home or self-care (01) ==
LOC: SED 19:26
DX: J20.9 Acute bronchitis, unspecified (principal); M10.061 Idiopathic gout, right knee; R11.10 Vomiting, unspecified; I10 Essential (primary) hypertension; F41.9 Anxiety disorder, unspecified; M79.7 Fibromyalgia; Z90.710 Acquired absence of both cervix and uterus; Z88.0 Allergy status to penicillin; Z91.018 Allergy to other foods
CPT/HCPCS: 36415; 71045; 80053; 81000; 83605; 83735; 85025; 85610; 85730; 87040; 87086; 94640; 96361; 96365; 96366; 96368; 96375; 96376; 99285; J0696; J1200 ×2; J2270 ×2; J2405; J3475; J7030; J7612

== ENCOUNTER 2018-10-15 17:11 | Emergency (ER) | payer OTHER ==
[~2018-10-15] VITALS: Ht 152.4 cm; Wt 113.4 kg
[2018-10-15 17:20] VITALS: BP_SYST 148
--- NOTE | 2018-10-15 17:20 | NUR ---
BROUGHT BACK TO BED #3 VIA WHEELCHAIR AND PLACED IN BED #3.
--- NOTE | 2018-10-15 17:22 | NUR ---
patient arrived AOx4 from home with c/o 10/10 back pain. patient states she gagged on her toothbrush, causing her to vomiting which throw out her back. patient has had this problem before and has recently made a trip to the ER for similar problems. patient denies drug use/etoh at this time. no other complaint or injury at this time.
[2018-10-15] MEDS ORDERED: DIPHENHYDRAMINE INJ 50 MG/ML VIAL IVP ONE ×2 (17:30→20:00)
[2018-10-15] MEDS ORDERED: MORPHINE 4 MG/ML INJ. SYRINGE IVP ONE (17:30)
--- NOTE | 2018-10-15 18:00 | NUR ---
ER at bedside examining patient.
[2018-10-15 19:09] LABS: BASOPHILS # (AUTO) 0.1 K/uL (0.0-0.2); BASOPHILS % (AUTO) 0.7 % (0.0-2.0); EOSINOPHILS # (AUTO) 0.1 K/uL (0.0-0.4); EOSINOPHILS % (AUTO) 0.7 % (0.0-4.0); HEMATOCRIT 44.6 % (36-48); HEMOGLOBIN 14.5 g/dL (12.0-16.0); LYMPHOCYTES # (AUTO) 3.1 K/uL (1.0-5.5); LYMPHOCYTES % (AUTO) 26.9 % (20.5-51.5); MEAN CORPUSCULAR HEMOGLOBIN 27 pg (27-31); MEAN CORPUSCULAR HGB CONC 33 % (32-36); MEAN CORPUSCULAR VOLUME 84 fL (79.0-98.0); MONOCYTES # (AUTO) 0.4 K/uL (0.0-1.0); MONOCYTES % (AUTO) 3.2 % (1.7-9.3); NEUTROPHILS # (AUTO) 7.9 K/uL (1.8-7.7); NEUTROPHILS % (AUTO) 68.5 % (40.0-70.0); PLATELET COUNT (AUTO) 491 K/uL (130-430); RED BLOOD CELL COUNT(AUTO) 5.34 MIL/uL (4.2-6.2); RED CELL DISTRIBUTION WIDTH 14.4 % (9.0-15.0); WHITE BLOOD COUNT (AUTO) 11.6 K/uL (4.8-10.8)
--- NOTE | 2018-10-15 19:10 | NUR ---
Pt AAOx4, pt states that her pain level has improved since receiving Morphine. No needs verbalized at this time.
[2018-10-15 19:11] LABS: CALCIUM 9.2 mg/dL (8.4-11.0); CREATININE 0.85 mg/dL (0.55-1.30); POTASSIUM 3.2 mmol/L (3.5-5.1)
[2018-10-15 19:13] LABS: INR 0.9 (0.8-1.2); PROTHROMBIN TIME 9.3 SECS (9.5-12.5)
[2018-10-15 19:16] LABS: TOTAL BILIRUBIN 0.6 mg/dL (0.0-1.0)
[2018-10-15 19:31] LABS: BILIRUBIN,URINE NEGATIVE (NEGATIVE); BLOOD, URINE NEGATIVE (NEGATIVE); CLARITY/URINE CLEAR (CLEAR); COLOR,URINE YELLOW (YELLOW); GLUCOSE,URINE NEGATIVE (NEGATIVE); KETONES,URINE NEGATIVE (NEGATIVE); LEUKOCYTE ESTERASE ,URINE TRACE (NEGATIVE); NITRITE, URINE NEGATIVE (NEGATIVE); PH,URINE 7.5 (5.0-8.0); PROTEIN URINE NEGATIVE (NEGATIVE); UROBILINOGEN,URINE 0.2 (0.2-1.0)
[2018-10-15 19:42] LABS: BACTERIA,URINE FEW /HPF (None Seen); MUCUS,URINE None Seen /LPF (None Seen); RBC,URINE NONE SEEN /HPF (0-3)
[2018-10-15] MEDS ORDERED: POTASSIUM CHLORIDE 20 MEQ TAB.PRT.SR PO ONE (19:45)
[2018-10-15] MEDS ORDERED: fentaNYL CITRATE/PF 100 MCG/2 ML AMP IVP ONE (19:45)
--- NOTE | 2018-10-15 19:45 | NUR ---
Dr. Polo at bedside.
[2018-10-15] MEDS ORDERED: MAGNESIUM SULFATE 50 ML IV ONE (20:00)
[2018-10-15] MEDS ORDERED: CYCLOBENZAPRINE HCL 10 MG TABLET (FLEXERIL) PO ONE (20:45)
[2018-10-15 21:30] VITALS: BP_SYST 117
--- NOTE | 2018-10-15 21:30 | NUR ---
Patient given written and verbal discharge instructions and verbalizes understanding. ER MD discussed with patient the results and treatment provided. Patient in stable condition. ID arm band removed. IV catheter removed intact and dressing applied, no active bleeding. No Rx given. Patient educated on pain management and to follow up with PMD. Pain Scale 1/10. Opportunity for questions provided and answered. Medication side effect fact sheet provided.
== END 2018-10-15 21:30 | disposition home or self-care (01) ==
LOC: SED 17:11
DX: S39.012A Strain of muscle, fascia and tendon of lower back, initial encounter (principal); E87.6 Hypokalemia; E83.42 Hypomagnesemia; E26.89 Other hyperaldosteronism; M79.7 Fibromyalgia; F41.9 Anxiety disorder, unspecified; I10 Essential (primary) hypertension; Z90.710 Acquired absence of both cervix and uterus; Z88.0 Allergy status to penicillin; Z91.018 Allergy to other foods; Z79.899 Other long term (current) drug therapy
CPT/HCPCS: 36415; 80053; 81000; 83735; 85025; 85610; 93005; 96365; 96375; 96376; 99284; J1200; J2270; J3010; J3475

== ENCOUNTER 2018-10-22 20:51 | Emergency (ER) | payer OTHER ==
[~2018-10-22] VITALS: Ht 162.6 cm; Wt 104.3 kg
[2018-10-22 21:19] VITALS: BP_SYST 117
[2018-10-22] MEDS ORDERED: MAGNESIUM SULFATE 50 ML IV ONE ×2 (21:30→22:30)
[2018-10-22] MEDS ORDERED: ONDANSETRON HCL 4 MG/2 ML VIAL IVP ONE (21:30)
[2018-10-22] MEDS ORDERED: fentaNYL 100 MCG/HR PATCH TD SCH (21:30)
[2018-10-22] MEDS ORDERED: fentaNYL CITRATE/PF 100 MCG/2 ML AMP IVP ONE (21:45)
[2018-10-22 21:48] LABS: BASOPHILS # (AUTO) 0.1 K/uL (0.0-0.2); BASOPHILS % (AUTO) 0.8 % (0.0-2.0); EOSINOPHILS # (AUTO) 0.1 K/uL (0.0-0.4); EOSINOPHILS % (AUTO) 1.1 % (0.0-4.0); HEMOGLOBIN 13.4 g/dL (12.0-16.0); LYMPHOCYTES % (AUTO) 23.2 % (20.5-51.5); MEAN CORPUSCULAR HEMOGLOBIN 27 pg (27-31); MEAN CORPUSCULAR HGB CONC 32 % (32-36); MEAN CORPUSCULAR VOLUME 84 fL (79.0-98.0); MONOCYTES # (AUTO) 0.8 K/uL (0.0-1.0); NEUTROPHILS # (AUTO) 8.9 K/uL (1.8-7.7); NEUTROPHILS % (AUTO) 68.9 % (40.0-70.0); PLATELET COUNT (AUTO) 532 K/uL (130-430); RED BLOOD CELL COUNT(AUTO) 5.01 MIL/uL (4.2-6.2); RED CELL DISTRIBUTION WIDTH 14.5 % (9.0-15.0); WHITE BLOOD COUNT (AUTO) 12.9 K/uL (4.8-10.8)
[2018-10-22 21:58] LABS: CREATININE 1.01 mg/dL (0.55-1.30); POTASSIUM 3.9 mmol/L (3.5-5.1)
[2018-10-22] MEDS ORDERED: DIPHENHYDRAMINE INJ 50 MG/ML VIAL IVP ONE (22:00)
[2018-10-22 22:02] LABS: ALBUMIN 3.8 g/dL (3.4-4.8); PHOSPHORUS 3.4 mg/dL (2.7-4.5); TOTAL BILIRUBIN 0.4 mg/dL (0.0-1.0)
[2018-10-22 23:14] LABS: BILIRUBIN,URINE NEGATIVE (NEGATIVE); BLOOD, URINE NEGATIVE (NEGATIVE); CLARITY/URINE CLEAR (CLEAR); COLOR,URINE YELLOW (YELLOW); GLUCOSE,URINE NEGATIVE (NEGATIVE); KETONES,URINE NEGATIVE (NEGATIVE); LEUKOCYTE ESTERASE ,URINE NEGATIVE (NEGATIVE); NITRITE, URINE NEGATIVE (NEGATIVE); PROTEIN URINE NEGATIVE (NEGATIVE); UROBILINOGEN,URINE 0.2 (0.2-1.0)
[2018-10-22] MEDS ORDERED: MORPHINE 4 MG/ML INJ. SYRINGE IVP ONE (23:15)
[2018-10-23] MEDS ORDERED: KETOROLAC TROMETHAMINE 30 MG VIAL IVP ONE (00:45)
[2018-10-23] MEDS ORDERED: DIPHENHYDRAMINE INJ 50 MG/ML VIAL IVP ONE (00:45)
[2018-10-23] MEDS ORDERED: ONDANSETRON HCL 4 MG/2 ML VIAL IVP ONE (00:45)
[2018-10-23 01:02] VITALS: BP_SYST 117
== END 2018-10-23 01:04 | disposition home or self-care (01) ==
LOC: SED 20:51
DX: G89.29 Other chronic pain (principal); M54.5 Low back pain; R25.2 Cramp and spasm; E83.42 Hypomagnesemia; I10 Essential (primary) hypertension; F41.9 Anxiety disorder, unspecified; M79.7 Fibromyalgia; Z90.710 Acquired absence of both cervix and uterus; Z88.0 Allergy status to penicillin; Z91.018 Allergy to other foods; Z79.899 Other long term (current) drug therapy
CPT/HCPCS: 36415; 80053; 81003; 83735; 84100; 85025; 96365; 96366; 96375; 96376; 99283; J1200 ×2; J1885; J2270; J2405 ×2; J3010; J3475

== ENCOUNTER 2018-10-24 23:10 | Emergency (ER) | payer OTHER ==
[~2018-10-24] VITALS: Ht 162.6 cm; Wt 104.3 kg
[2018-10-24 23:12] VITALS: BP_SYST 129
[2018-10-24] MEDS ORDERED: NACL 0.9% 1,000 ML IV ONE (23:15)
[2018-10-24] MEDS ORDERED: MAGNESIUM SULFATE 3 GM in D5W 100 ML IV ONE (23:15)
[2018-10-24] MEDS ORDERED: KETOROLAC TROMETHAMINE 30 MG VIAL IVP ONE (23:45)
[2018-10-24 23:49] LABS: BASOPHILS # (AUTO) 0.1 K/uL (0.0-0.2); BASOPHILS % (AUTO) 0.8 % (0.0-2.0); EOSINOPHILS # (AUTO) 0.2 K/uL (0.0-0.4); EOSINOPHILS % (AUTO) 1.8 % (0.0-4.0); HEMATOCRIT 38.5 % (36-48); HEMOGLOBIN 12.5 g/dL (12.0-16.0); LYMPHOCYTES # (AUTO) 3.4 K/uL (1.0-5.5); LYMPHOCYTES % (AUTO) 35.9 % (20.5-51.5); MEAN CORPUSCULAR HEMOGLOBIN 27 pg (27-31); MEAN CORPUSCULAR HGB CONC 32 % (32-36); MEAN CORPUSCULAR VOLUME 83 fL (79.0-98.0); MONOCYTES # (AUTO) 0.5 K/uL (0.0-1.0); MONOCYTES % (AUTO) 4.8 % (1.7-9.3); NEUTROPHILS # (AUTO) 5.3 K/uL (1.8-7.7); NEUTROPHILS % (AUTO) 56.7 % (40.0-70.0); PLATELET COUNT (AUTO) 480 K/uL (130-430); RED BLOOD CELL COUNT(AUTO) 4.63 MIL/uL (4.2-6.2); RED CELL DISTRIBUTION WIDTH 14.7 % (9.0-15.0); WHITE BLOOD COUNT (AUTO) 9.5 K/uL (4.8-10.8)
[2018-10-24 23:56] LABS: CALCIUM 8.8 mg/dL (8.4-11.0); CREATININE 1.03 mg/dL (0.55-1.30)
[2018-10-25] LABS: ALBUMIN 3.6 g/dL (3.4-4.8); TOTAL BILIRUBIN 0.3 mg/dL (0.0-1.0)
[2018-10-25] MEDS ORDERED: MAGNESIUM SULFATE 1 GM/2 ML VIAL ONE (00:14)
[2018-10-25] MEDS ORDERED: MORPHINE 4 MG/ML INJ. SYRINGE IVP ONE (00:15)
[2018-10-25] MEDS ORDERED: ONDANSETRON HCL 4 MG/2 ML VIAL IVP ONE (00:15)
[2018-10-25] MEDS ORDERED: MAGNESIUM SULFATE 50 ML IV ONE (00:15)
[2018-10-25] MEDS ORDERED: MAGNESIUM SULFATE 1 GM in NS 100 ML IV ONE (00:15)
[2018-10-25] MEDS ORDERED: DIPHENHYDRAMINE INJ 50 MG/ML VIAL IVP ONE (00:15)
[2018-10-25] MEDS ORDERED: MAGNESIUM SULFATE 1 GM/2 ML VIAL IVP ONE (00:45)
[2018-10-25 03:00] VITALS: BP_SYST 110
== END 2018-10-25 03:00 | disposition home or self-care (01) ==
LOC: SED 23:10
DX: E83.42 Hypomagnesemia (principal); I10 Essential (primary) hypertension; F41.9 Anxiety disorder, unspecified; M79.7 Fibromyalgia; Z90.710 Acquired absence of both cervix and uterus; Z88.0 Allergy status to penicillin; Z91.018 Allergy to other foods; Z79.899 Other long term (current) drug therapy
CPT/HCPCS: 36415; 80053; 83735; 85025; 96365; 96366; 96375; 99283; J1200; J2270; J2405; J3475 ×2; J7030

== ENCOUNTER 2018-10-27 19:25 | Emergency (ER) | payer OTHER ==
[~2018-10-27] VITALS: Ht 162.6 cm; Wt 104.3 kg
[2018-10-27 19:50] VITALS: BP_SYST 134
[2018-10-27] MEDS ORDERED: KETOROLAC TROMETHAMINE 30 MG VIAL IVP ONE (20:00)
[2018-10-27] MEDS ORDERED: NACL 0.9% 1,000 ML IV ONE (20:00)
[2018-10-27] MEDS ORDERED: MAGNESIUM SULFATE 50 ML IV ONE ×2 (20:15→21:30)
[2018-10-27 20:50] LABS: HEMATOCRIT 42.5 % (36-48); HEMOGLOBIN 13.8 g/dL (12.0-16.0); MEAN CORPUSCULAR VOLUME 85 fL (79.0-98.0); RED BLOOD CELL COUNT(AUTO) 5.02 MIL/uL (4.2-6.2); WHITE BLOOD COUNT (AUTO) 10.1 K/uL (4.8-10.8)
[2018-10-27 20:51] LABS: BASOPHILS # (AUTO) 0.1 K/uL (0.0-0.2); BASOPHILS % (AUTO) 0.9 % (0.0-2.0); EOSINOPHILS # (AUTO) 0.1 K/uL (0.0-0.4); EOSINOPHILS % (AUTO) 1.1 % (0.0-4.0); LYMPHOCYTES # (AUTO) 3.1 K/uL (1.0-5.5); LYMPHOCYTES % (AUTO) 30.8 % (20.5-51.5); MEAN CORPUSCULAR HEMOGLOBIN 28 pg (27-31); MEAN CORPUSCULAR HGB CONC 33 % (32-36); MONOCYTES # (AUTO) 0.4 K/uL (0.0-1.0); MONOCYTES % (AUTO) 3.7 % (1.7-9.3); NEUTROPHILS # (AUTO) 6.4 K/uL (1.8-7.7); NEUTROPHILS % (AUTO) 63.5 % (40.0-70.0); PLATELET COUNT (AUTO) 485 K/uL (130-430); RED CELL DISTRIBUTION WIDTH 15.6 % (9.0-15.0)
[2018-10-27 20:52] LABS: ANION GAP 6 (5-15); CALCIUM 9.6 mg/dL (8.4-11.0); CHLORIDE 103 mmol/L (98-107); CREATININE 1.03 mg/dL (0.55-1.30); GLUCOSE 107 mg/dL (70-99); POTASSIUM 4.3 mmol/L (3.5-5.1); SODIUM SERUM 135 mmol/L (136-145); UREA NITROGEN, BLOOD 17 mg/dL (8-21)
[2018-10-27 20:55] LABS: GFR AFRICAN AMERICAN 73 mL/min (>90)
[2018-10-27 20:56] LABS: ALANINE AMINOTRANSFERASE 21 U/L (12-78); ALBUMIN 3.9 g/dL (3.4-4.8); ASPARTATE AMINOTRANSFERASE 17 U/L (10-37); TOTAL BILIRUBIN 0.7 mg/dL (0.0-1.0)
[2018-10-27] MEDS ORDERED: MORPHINE 4 MG/ML INJ. SYRINGE IVP ONE (21:30)
[2018-10-27] MEDS ORDERED: DIPHENHYDRAMINE INJ 50 MG/ML VIAL IVP ONE (21:30)
[2018-10-27 23:52] VITALS: BP_SYST 134
== END 2018-10-27 23:52 | disposition home or self-care (01) ==
LOC: SED 19:25
DX: E83.42 Hypomagnesemia (principal); G89.4 Chronic pain syndrome; R11.2 Nausea with vomiting, unspecified; R19.7 Diarrhea, unspecified; I10 Essential (primary) hypertension; F41.9 Anxiety disorder, unspecified; M79.7 Fibromyalgia; Z98.84 Bariatric surgery status; Z90.710 Acquired absence of both cervix and uterus; Z88.0 Allergy status to penicillin; Z91.018 Allergy to other foods; Z79.899 Other long term (current) drug therapy
CPT/HCPCS: 36415; 80053; 83690; 83735; 85025; 96365; 96366; 96375; 96376; 99283; J1200; J1885; J2270; J3475; J7030

== ENCOUNTER 2018-10-31 16:17 | Inpatient (IN) | payer OTHER ==
[~2018-10-31] VITALS: Ht 162.6 cm; Wt 108.9 kg
[2018-10-31 16:25] VITALS: BP_SYST 119
[2018-10-31] MEDS ORDERED: MAGNESIUM SULFATE 3 GM in D5W 100 ML IV ONE (16:45)
[2018-10-31 17:01] LABS: BASOPHILS # (AUTO) 0.1 K/uL (0.0-0.2); BASOPHILS % (AUTO) 1.1 % (0.0-2.0); EOSINOPHILS # (AUTO) 0.2 K/uL (0.0-0.4); EOSINOPHILS % (AUTO) 1.7 % (0.0-4.0); HEMATOCRIT 39.1 % (36-48); HEMOGLOBIN 12.8 g/dL (12.0-16.0); LYMPHOCYTES # (AUTO) 2.9 K/uL (1.0-5.5); LYMPHOCYTES % (AUTO) 27.8 % (20.5-51.5); MEAN CORPUSCULAR HEMOGLOBIN 27 pg (27-31); MEAN CORPUSCULAR HGB CONC 33 % (32-36); MEAN CORPUSCULAR VOLUME 84 fL (79.0-98.0); MONOCYTES # (AUTO) 0.5 K/uL (0.0-1.0); MONOCYTES % (AUTO) 5.1 % (1.7-9.3); NEUTROPHILS # (AUTO) 6.7 K/uL (1.8-7.7); NEUTROPHILS % (AUTO) 64.3 % (40.0-70.0); PLATELET COUNT (AUTO) 375 K/uL (130-430); RED BLOOD CELL COUNT(AUTO) 4.67 MIL/uL (4.2-6.2); RED CELL DISTRIBUTION WIDTH 15.7 % (9.0-15.0); WHITE BLOOD COUNT (AUTO) 10.5 K/uL (4.8-10.8)
[2018-10-31 17:12] LABS: CALCIUM 8.7 mg/dL (8.4-11.0); CREATININE 0.95 mg/dL (0.55-1.30)
[2018-10-31 17:15] LABS: ALBUMIN 3.7 g/dL (3.4-4.8); TOTAL BILIRUBIN 0.4 mg/dL (0.0-1.0)
[2018-10-31] MEDS ORDERED: ONDANSETRON HCL 4 MG/2 ML VIAL IVP ONE (17:30)
[2018-10-31] MEDS ORDERED: LORazepam 2 MG/ML VIAL (FOR ER USE) IVP ONE ×2 (17:30→19:00)
[2018-10-31] MEDS ORDERED: DIPHENHYDRAMINE INJ 50 MG/ML VIAL IVP ONE (17:30)
[2018-10-31] MEDS ORDERED: MORPHINE 4 MG/ML INJ. SYRINGE IVP ONE (17:30)
[2018-10-31] MEDS ORDERED: POTASSIUM CHLORIDE 20 MEQ TAB.PRT.SR PO ONE (17:30)
[2018-10-31] MEDS: aMILoride HCL 5 MG TABLET PO SCH (20:30)
[2018-10-31] MEDS ORDERED: POTASSIUM CHLORIDE 40 MEQ, LIDOCAINE JECT 2% PF 100 MG 50 MG in NS 250 ML IV ONE (20:45)
[2018-10-31] MEDS ORDERED: MORPHINE 4 MG/ML INJ. SYRINGE IVP PRN (20:45)
[2018-10-31] MEDS: IPRATROPIUM/ALBUTEROL SULFATE 120 PUFFS/4 GM INH INH SCH (21:00)
[2018-10-31] MEDS: DIPHENHYDRAMINE INJ 50 MG/ML VIAL IVP PRN (22:01)
[2018-10-31] MEDS: MORPHINE 4 MG/ML INJ. SYRINGE IVP PRN (22:02)
[2018-10-31] MEDS: ONDANSETRON HCL 4 MG/2 ML VIAL IVP PRN (22:03)
[2018-10-31] MEDS: ZOLPIDEM TARTRATE 5 MG TABLET PO SCH (22:13)
[2018-10-31] MEDS: CYCLOBENZAPRINE HCL 10 MG TABLET (FLEXERIL) PO SCH (22:13)
[2018-10-31] MEDS: LORazepam 1 MG TABLET PO SCH (22:13)
[2018-10-31] MEDS: CHOLECALCIFEROL (VITAMIN D-3) 400 UNIT TABLET PO SCH (22:27)
[2018-10-31] MEDS: MORPHINE SULFATE 30 MG Immediate Release TABLET PO SCH (22:28)
[2018-10-31] MEDS: COLCHICINE 0.6 MG TABLET PO PRN (22:28)
[2018-10-31 23:46] VITALS: BP_SYST 111
[2018-10-31] MEDS ORDERED: KCL 40 mEq in 100 mL (PREMIX) 100 ML IV ONE (23:56)
[2018-11-01] VITALS: BP_SYST 132
[2018-11-01] MEDS ORDERED: LIDOCAINE JECT 2% PF 100 MG/5ML SYRINGE ONE (00:14)
[2018-11-01] MEDS: DIPHENHYDRAMINE INJ 50 MG/ML VIAL IVP PRN ×6 (02:46→23:00)
[2018-11-01] MEDS: ONDANSETRON HCL 4 MG/2 ML VIAL IVP PRN ×6 (02:46→23:00)
[2018-11-01] MEDS: MORPHINE 4 MG/ML INJ. SYRINGE IVP PRN ×6 (02:47→23:01)
[2018-11-01] MEDS: MORPHINE SULFATE 30 MG Immediate Release TABLET PO SCH ×3 (05:47→21:15)
[2018-11-01 08:16] VITALS: BP_SYST 124
[2018-11-01] MEDS: IPRATROPIUM/ALBUTEROL SULFATE 120 PUFFS/4 GM INH INH SCH ×2 (08:43→13:00)
[2018-11-01] MEDS: DULoxetine HCL 30 MG CAPSULE.DR (CYMBALTA) PO SCH (08:45)
[2018-11-01] MEDS: POTASSIUM CHLORIDE 20 MEQ TAB.PRT.SR PO SCH ×4 (08:45→21:14)
[2018-11-01] MEDS: aMILoride HCL 5 MG TABLET PO SCH ×2 (08:46→21:20)
[2018-11-01] MEDS: CYCLOBENZAPRINE HCL 10 MG TABLET (FLEXERIL) PO SCH ×2 (08:46→21:14)
[2018-11-01] MEDS: MAGNESIUM CHLORIDE 64 MG TABLET.DR PO SCH ×4 (08:47→21:20)
[2018-11-01] MEDS: CHOLECALCIFEROL (VITAMIN D-3) 400 UNIT TABLET PO SCH ×2 (08:47→21:19)
[2018-11-01] MEDS: SPIRONOLACTONE 50 MG TABLET (ALDACTONE) PO SCH (08:47)
[2018-11-01] MEDS: LORazepam 1 MG TABLET PO SCH ×2 (08:47→21:15)
[2018-11-01 12:00] VITALS: BP_SYST 129
[2018-11-01] MEDS: COLCHICINE 0.6 MG TABLET PO PRN (13:29)
[2018-11-01] MEDS ORDERED: MAGNESIUM SULFATE 4 GM in D5W 250 ML IV ONE (14:15)
[2018-11-01 15:09] LABS: CALCIUM 8.5 mg/dL (8.4-11.0); CREATININE 1.11 mg/dL (0.55-1.30); POTASSIUM 3.1 mmol/L (3.5-5.1)
[2018-11-01 16:06] VITALS: BP_SYST 122
[2018-11-01 18:15] VITALS: BP_SYST 122
[2018-11-01] MEDS ORDERED: ALBUTEROL SULFATE 0.083% 2.5 MG/3 ML VIAL.NEB INH PRN (18:15)
[2018-11-01] MEDS ORDERED: POTASSIUM CHLORIDE 40 MEQ, LIDOCAINE JECT 2% PF 100 MG 50 MG in NS 250 ML IV ONE ×2 (19:00→23:00)
[2018-11-01] MEDS: IPRATROPIUM/ALBUTEROL SULFATE 3 ML AMPUL.NEB (DUONEB) INH SCH (19:33)
[2018-11-01 20:00] VITALS: BP_SYST 110
[2018-11-01] MEDS: ZOLPIDEM TARTRATE 5 MG TABLET PO SCH (21:14)
[2018-11-02] VITALS: BP_SYST 132
[2018-11-02] MEDS: IPRATROPIUM/ALBUTEROL SULFATE 3 ML AMPUL.NEB (DUONEB) INH SCH ×4 (00:36→19:45)
[2018-11-02] MEDS: ONDANSETRON HCL 4 MG/2 ML VIAL IVP PRN ×6 (02:54→23:30)
[2018-11-02] MEDS: DIPHENHYDRAMINE INJ 50 MG/ML VIAL IVP PRN ×6 (02:55→23:30)
[2018-11-02] MEDS: MORPHINE 4 MG/ML INJ. SYRINGE IVP PRN ×6 (02:56→23:31)
[2018-11-02] MEDS: MORPHINE SULFATE 30 MG Immediate Release TABLET PO SCH ×3 (04:27→20:43)
[2018-11-02 08:00] VITALS: BP_SYST 119
[2018-11-02] MEDS: CHOLECALCIFEROL (VITAMIN D-3) 400 UNIT TABLET PO SCH ×2 (08:31→20:37)
[2018-11-02] MEDS: LORazepam 1 MG TABLET PO SCH ×2 (08:31→20:37)
[2018-11-02] MEDS: POTASSIUM CHLORIDE 20 MEQ TAB.PRT.SR PO SCH ×4 (08:31→20:46)
[2018-11-02] MEDS: SPIRONOLACTONE 50 MG TABLET (ALDACTONE) PO SCH (08:32)
[2018-11-02] MEDS: CYCLOBENZAPRINE HCL 10 MG TABLET (FLEXERIL) PO SCH ×2 (08:32→20:38)
[2018-11-02] MEDS: aMILoride HCL 5 MG TABLET PO SCH ×2 (08:32→20:44)
[2018-11-02] MEDS: DULoxetine HCL 30 MG CAPSULE.DR (CYMBALTA) PO SCH (08:32)
[2018-11-02] MEDS: MAGNESIUM CHLORIDE 64 MG TABLET.DR PO SCH ×4 (08:33→20:45)
[2018-11-02 12:00] VITALS: BP_SYST 121
[2018-11-02] MEDS ORDERED: MAGNESIUM SULFATE 4 GM in D5W 250 ML IV ONE (15:30)
[2018-11-02 15:59] LABS: CALCIUM 8.3 mg/dL (8.4-11.0); CREATININE 0.83 mg/dL (0.55-1.30); POTASSIUM 3.4 mmol/L (3.5-5.1)
[2018-11-02 20:00] VITALS: BP_SYST 110
[2018-11-02] MEDS: ZOLPIDEM TARTRATE 5 MG TABLET PO SCH (21:39)
[2018-11-02] MEDS ORDERED: MAGNESIUM SULFATE IV ONE ×4 (22:00)
[2018-11-02] MEDS ORDERED: POTASSIUM CHLORIDE IV ONE ×4 (22:00)
[2018-11-02] MEDS ORDERED: [UNRECOGNIZED DRUG - OTHER] IV ONE ×4 (22:00)
[2018-11-03] VITALS: BP_SYST 119
[2018-11-03] MEDS: IPRATROPIUM/ALBUTEROL SULFATE 3 ML AMPUL.NEB (DUONEB) INH SCH ×4 (01:06→20:17)
[2018-11-03] MEDS: ONDANSETRON HCL 4 MG/2 ML VIAL IVP PRN ×4 (03:27→20:13)
[2018-11-03] MEDS: MORPHINE 4 MG/ML INJ. SYRINGE IVP PRN ×4 (03:28→20:13)
[2018-11-03] MEDS: DIPHENHYDRAMINE INJ 50 MG/ML VIAL IVP PRN ×4 (03:28→20:12)
[2018-11-03] MEDS: MORPHINE SULFATE 30 MG Immediate Release TABLET PO SCH ×3 (04:26→22:05)
[2018-11-03 08:00] VITALS: BP_SYST 127
[2018-11-03] MEDS: DULoxetine HCL 30 MG CAPSULE.DR (CYMBALTA) PO SCH (09:03)
[2018-11-03] MEDS: CHOLECALCIFEROL (VITAMIN D-3) 400 UNIT TABLET PO SCH ×2 (09:03→22:05)
[2018-11-03] MEDS: SPIRONOLACTONE 50 MG TABLET (ALDACTONE) PO SCH (09:04)
[2018-11-03] MEDS: CYCLOBENZAPRINE HCL 10 MG TABLET (FLEXERIL) PO SCH ×2 (09:04→22:05)
[2018-11-03] MEDS: POTASSIUM CHLORIDE 20 MEQ TAB.PRT.SR PO SCH ×4 (09:04→22:06)
[2018-11-03] MEDS: LORazepam 1 MG TABLET PO SCH ×2 (09:04→22:06)
[2018-11-03] MEDS: aMILoride HCL 5 MG TABLET PO SCH ×2 (09:05→22:08)
[2018-11-03] MEDS: MAGNESIUM CHLORIDE 64 MG TABLET.DR PO SCH ×4 (09:06→22:10)
[2018-11-03 13:07] VITALS: BP_SYST 117
[2018-11-03 16:55] VITALS: BP_SYST 103
[2018-11-03] MEDS ORDERED: MAGNESIUM SULFATE 4 GM in D5W 250 ML IV ONE (17:00)
[2018-11-03 17:25] LABS: CALCIUM 8.7 mg/dL (8.4-11.0); CREATININE 0.95 mg/dL (0.55-1.30)
[2018-11-03 19:34] VITALS: BP_SYST 135
[2018-11-03] MEDS: ZOLPIDEM TARTRATE 5 MG TABLET PO SCH (22:06)
[2018-11-03] MEDS: COLCHICINE 0.6 MG TABLET PO PRN (22:09)
[2018-11-03 23:00] VITALS: BP_SYST 130
[2018-11-04] MEDS: ONDANSETRON HCL 4 MG/2 ML VIAL IVP PRN ×5 (00:14→17:24)
[2018-11-04] MEDS: DIPHENHYDRAMINE INJ 50 MG/ML VIAL IVP PRN ×5 (00:15→17:25)
[2018-11-04] MEDS: MORPHINE 4 MG/ML INJ. SYRINGE IVP PRN ×5 (00:19→17:32)
[2018-11-04] MEDS: IPRATROPIUM/ALBUTEROL SULFATE 3 ML AMPUL.NEB (DUONEB) INH SCH ×3 (01:24→13:10)
[2018-11-04] MEDS: MORPHINE SULFATE 30 MG Immediate Release TABLET PO SCH ×2 (04:37→12:30)
[2018-11-04 07:31] VITALS: BP_SYST 115
[2018-11-04 07:53] VITALS: BP_SYST 115
[2018-11-04] MEDS: DULoxetine HCL 30 MG CAPSULE.DR (CYMBALTA) PO SCH (08:33)
[2018-11-04] MEDS: CYCLOBENZAPRINE HCL 10 MG TABLET (FLEXERIL) PO SCH (08:34)
[2018-11-04] MEDS: LORazepam 1 MG TABLET PO SCH (08:34)
[2018-11-04] MEDS: CHOLECALCIFEROL (VITAMIN D-3) 400 UNIT TABLET PO SCH (08:34)
[2018-11-04] MEDS: POTASSIUM CHLORIDE 20 MEQ TAB.PRT.SR PO SCH ×3 (08:34→17:32)
[2018-11-04] MEDS: SPIRONOLACTONE 50 MG TABLET (ALDACTONE) PO SCH (08:35)
[2018-11-04] MEDS: aMILoride HCL 5 MG TABLET PO SCH (08:37)
[2018-11-04] MEDS: MAGNESIUM CHLORIDE 64 MG TABLET.DR PO SCH ×3 (08:38→17:33)
[2018-11-04] MEDS ORDERED: MAGNESIUM SULFATE 4 GM in D5W 250 ML IV ONE (11:30)
[2018-11-04 17:00] VITALS: BP_SYST 107
[2018-11-04] MEDS ORDERED: MORP15TA PO (17:06)
[2018-11-04] MEDS ORDERED: LORA-259 PO (17:08)
== END 2018-11-04 19:24 | disposition home or self-care (01) | DRG 202 ==
LOC: SED 16:17 → STU 18:59 → SMU 11-02 16:58
PROVIDERS: ADMIT Internal Medicine; ATTEND Internal Medicine
DX: J20.9 Acute bronchitis, unspecified (principal); Z68.41 Body mass index [BMI] 40.0-44.9, adult; E83.42 Hypomagnesemia; E87.6 Hypokalemia; M10.9 Gout, unspecified; M79.7 Fibromyalgia; F41.9 Anxiety disorder, unspecified; I10 Essential (primary) hypertension; E03.9 Hypothyroidism, unspecified; E66.9 Obesity, unspecified; F32.9 Major depressive disorder, single episode, unspecified; R73.9 Hyperglycemia, unspecified; Z88.0 Allergy status to penicillin; Z91.018 Allergy to other foods; Z79.899 Other long term (current) drug therapy
CPT/HCPCS: 36415; 80048; 80053; 83735-TC; 85025; 87081; 93005; 94640; 94760; 96365; 96375; 96376; 99285; G0378; J1200; J2060; J2270; J2274; J2405; J3475; J3480; J7050; J7060; J7613; J7620

== ENCOUNTER 2018-11-09 19:36 | Emergency (ER) | payer OTHER ==
[~2018-11-09] VITALS: Ht 162.6 cm; Wt 104.3 kg
[~2018-11-09 19:36] MED LIST changes: -ALBU8.5H8 INH; -DOXY-168 PO; -DOXY100C PO; -LEVO750T19 PO; -MORP30TA PO
--- NOTE | 2018-11-09 19:53 | NUR ---
Harleen sandoval in [facility] - 11/09/[address] at [address] Aruna carias for pt joeyal
[2018-11-09 19:55] VITALS: BP_SYST 102
[2018-11-09] MEDS ORDERED: MAGNESIUM SULFATE 3 GM in D5W 100 ML IV ONE (20:00)
--- NOTE | 2018-11-09 20:21 | NUR ---
Harleen sandoval in [facility] - 11/09/[address] at [address] Aruna carias for Pt joeyal
--- NOTE | 2018-11-09 20:30 | NUR ---
Patient to ER bed 4 to gown for evaluation. Side rails up.
--- NOTE | 2018-11-09 20:31 | NUR ---
Dr. Valdovinos bedside for pt eval
--- NOTE | 2018-11-09 20:35 | NUR ---
# 20 gauge angiocath placed to RAC. Use of asceptic technique. Opsite placed over site. Blood return noted. Blood for lab drawn from site. Flushed with 10 cc of normal saline. No evidence of infiltration noted. Patient tolerated well.
--- NOTE | 2018-11-09 20:45 | NUR ---
Pt came in ED C/O severe pain, abd and generalized. 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 causing her electrolytes to run low especially Mag. No other complaints or injuries noted. Resting on gurney with rails up
[2018-11-09 20:56] LABS: BASOPHILS # (AUTO) 0.1 K/uL (0.0-0.2); EOSINOPHILS # (AUTO) 0.1 K/uL (0.0-0.4); EOSINOPHILS % (AUTO) 0.6 % (0.0-4.0); HEMATOCRIT 41.9 % (36-48); HEMOGLOBIN 13.6 g/dL (12.0-16.0); LYMPHOCYTES # (AUTO) 3.7 K/uL (1.0-5.5); LYMPHOCYTES % (AUTO) 25.4 % (20.5-51.5); MEAN CORPUSCULAR HEMOGLOBIN 27 pg (27-31); MEAN CORPUSCULAR HGB CONC 33 % (32-36); MEAN CORPUSCULAR VOLUME 83 fL (79.0-98.0); MONOCYTES % (AUTO) 6.9 % (1.7-9.3); NEUTROPHILS # (AUTO) 9.7 K/uL (1.8-7.7); NEUTROPHILS % (AUTO) 66.1 % (40.0-70.0); PLATELET COUNT (AUTO) 484 K/uL (130-430); RED BLOOD CELL COUNT(AUTO) 5.04 MIL/uL (4.2-6.2); RED CELL DISTRIBUTION WIDTH 15.7 % (9.0-15.0); WHITE BLOOD COUNT (AUTO) 14.7 K/uL (4.8-10.8)
[2018-11-09] MEDS ORDERED: MAGNESIUM SULFATE 1 GM/2 ML VIAL ONE (20:59)
[2018-11-09 21:04] LABS: CREATININE 1.1 mg/dL (0.55-1.30); POTASSIUM 3.6 mmol/L (3.5-5.1)
[2018-11-09 21:10] LABS: TOTAL BILIRUBIN 0.5 mg/dL (0.0-1.0)
[2018-11-09] MEDS ORDERED: MORPHINE 4 MG/ML INJ. SYRINGE IVP ONE (21:15)
[2018-11-09] MEDS ORDERED: DIPHENHYDRAMINE INJ 50 MG/ML VIAL IVP ONE (21:15)
[2018-11-09] MEDS ORDERED: ONDANSETRON HCL 4 MG/2 ML VIAL ONE (22:32)
[2018-11-09] MEDS ORDERED: MAGNESIUM SULFATE 1 GM/2 ML VIAL IV ONE (22:45)
[2018-11-09] MEDS ORDERED: ONDANSETRON HCL 4 MG/2 ML VIAL IVP ONE (22:45)
[2018-11-09] MEDS ORDERED: KETAMINE 30 MG/3 ML SYRINGE IVP ONE (23:30)
[2018-11-10] MEDS ORDERED: KETAMINE 30 MG/3 ML SYRINGE 30 MG in NS 100 ML IV ONE ×2
--- NOTE | 2018-11-10 00:07 | NUR ---
Pt states feeling like some relief from pain after starting Ketamine IV Therapy
--- NOTE | 2018-11-10 00:12 | NUR ---
Pt VSS, no s/s of acute distress. Pt verbalize feeling better. Continuing Ketamine IV Therapy, well tolerated
--- NOTE | 2018-11-10 00:17 | NUR ---
Pt states feeling better. VSS, No s/s of acute distress. A/A/O x 3. Resting on gurney with rails up
--- NOTE | 2018-11-10 00:21 | NUR ---
Ketamine IV complete. VSS, no s/s of acute distress. Dr. Aruna davidson
[2018-11-10 00:57] VITALS: BP_SYST 142
--- NOTE | 2018-11-10 00:57 | NUR ---
Patient given written and verbal discharge instructions and verbalizes understanding. ER MD discussed with patient the results and treatment provided. Patient in stable condition. ID arm band removed. IV catheter removed intact and dressing applied, no active bleeding. Rx of Zofran given. Patient educated on pain management and to follow up with PMD. Pain Scale 0/10. Opportunity for questions provided and answered. Medication side effect fact sheet provided.
== END 2018-11-10 00:57 | disposition home or self-care (01) ==
LOC: SED 19:36
DX: E83.42 Hypomagnesemia (principal); G89.4 Chronic pain syndrome; I10 Essential (primary) hypertension; F41.9 Anxiety disorder, unspecified; M79.7 Fibromyalgia; Z98.84 Bariatric surgery status; Z90.710 Acquired absence of both cervix and uterus; Z88.0 Allergy status to penicillin; Z91.018 Allergy to other foods; Z79.899 Other long term (current) drug therapy
CPT/HCPCS: 36415; 80053; 83735; 85025; 96365; 96367; 96375; 96376; 99283; J1200; J2270; J2405; J3475

== ENCOUNTER 2018-11-12 18:28 | Emergency (ER) | payer OTHER ==
[~2018-11-12] VITALS: Ht 162.6 cm; Wt 104.3 kg
[2018-11-12 18:43] VITALS: BP_SYST 104
[2018-11-12 19:15] LABS: HEMATOCRIT 39.1 % (36-48); HEMOGLOBIN 12.6 g/dL (12.0-16.0); RED BLOOD CELL COUNT(AUTO) 4.68 MIL/uL (4.2-6.2)
[2018-11-12 19:16] LABS: MEAN CORPUSCULAR HEMOGLOBIN 27 pg (27-31); MEAN CORPUSCULAR HGB CONC 32 % (32-36); MEAN CORPUSCULAR VOLUME 83 fL (79.0-98.0); PLATELET COUNT (AUTO) 438 K/uL (130-430); RED CELL DISTRIBUTION WIDTH 15.6 % (9.0-15.0)
[2018-11-12 19:17] LABS: LYMPHOCYTES % (AUTO) 29.1 % (20.5-51.5); NEUTROPHILS % (AUTO) 64.5 % (40.0-70.0)
[2018-11-12 19:18] LABS: BASOPHILS # (AUTO) 0.2 K/uL (0.0-0.2); BASOPHILS % (AUTO) 1.4 % (0.0-2.0); EOSINOPHILS # (AUTO) 0.1 K/uL (0.0-0.4); EOSINOPHILS % (AUTO) 0.6 % (0.0-4.0); LYMPHOCYTES # (AUTO) 3.5 K/uL (1.0-5.5); MONOCYTES # (AUTO) 0.5 K/uL (0.0-1.0); MONOCYTES % (AUTO) 4.4 % (1.7-9.3); NEUTROPHILS # (AUTO) 7.7 K/uL (1.8-7.7)
[2018-11-12 19:38] LABS: CALCIUM 9.5 mg/dL (8.4-11.0); CREATININE 0.88 mg/dL (0.55-1.30); POTASSIUM 3.7 mmol/L (3.5-5.1)
[2018-11-12 19:43] LABS: ALBUMIN 4.1 g/dL (3.4-4.8); TOTAL BILIRUBIN 0.6 mg/dL (0.0-1.0)
[2018-11-12] MEDS ORDERED: DIPHENHYDRAMINE INJ 50 MG/ML VIAL IVP ONE (20:30)
[2018-11-12] MEDS ORDERED: MAGNESIUM SULFATE 4 GM in D5W 250 ML IV ONE (20:30)
[2018-11-12] MEDS ORDERED: MORPHINE 4 MG/ML INJ. SYRINGE IVP ONE (20:30)
[2018-11-12] MEDS ORDERED: MAGNESIUM SULFATE 1 GM/2 ML VIAL ONE ×2 (20:49→21:04)
[2018-11-12] MEDS ORDERED: KETAMINE 30 MG/3 ML SYRINGE 30 MG in NS 100 ML IV ONE (21:45)
[2018-11-12] MEDS ORDERED: KETAMINE 30 MG/3 ML SYRINGE ONE (21:56)
[2018-11-12 23:56] VITALS: BP_SYST 104
== END 2018-11-12 23:55 | disposition home or self-care (01) ==
LOC: SED 18:54
DX: G89.29 Other chronic pain (principal); M25.562 Pain in left knee; E83.42 Hypomagnesemia; I10 Essential (primary) hypertension; F41.9 Anxiety disorder, unspecified; M79.7 Fibromyalgia; Z88.0 Allergy status to penicillin; Z91.018 Allergy to other foods; Z79.899 Other long term (current) drug therapy
CPT/HCPCS: 36415; 80053; 83735; 85025; 96365; 96366; 96375; 99283; J1200; J2270; J3475

== ENCOUNTER 2018-11-17 15:53 | Outpatient (CLI) | payer OTHER ==
[2018-11-17 16:55] LABS: ANION GAP 7 (5-15); CALCIUM 8.9 mg/dL (8.4-11.0); CHLORIDE 100 mmol/L (98-107); CREATININE 0.99 mg/dL (0.55-1.30); GLUCOSE 162 mg/dL (70-99); POTASSIUM 3.1 mmol/L (3.5-5.1); SODIUM SERUM 139 mmol/L (136-145); UREA NITROGEN, BLOOD 12 mg/dL (8-21)
[2018-11-17 17:02] LABS: GFR AFRICAN AMERICAN 76 mL/min (>90)
== END 2018-11-17 21:10 | disposition home or self-care (01) ==
LOC: SLB 15:53
PROVIDERS: ATTEND Internal Medicine
DX: E87.6 Hypokalemia (principal); E83.42 Hypomagnesemia
CPT/HCPCS: 36415; 80048; 83735-TC

== ENCOUNTER 2018-11-17 18:36 | Inpatient (IN) | payer OTHER ==
[~2018-11-17] VITALS: Ht 162.6 cm; Wt 108.0 kg
--- NOTE | 2018-11-17 20:50 | NUR ---
ROUNDS PATIENT IN BED, NOT IN DISTRESS, VITALS STABLE, C/O OF PAIN AT THIS TIME. ADMISSION ASSESSMENT DONE AND DOCUMENTED. SEE FLOWSHEET. ORIENTED PATIENT TO ROOM, PHONE AND CALL LIGHT. PLAN OF CARE DISCUSSED AND PATIENT VERBALIZED UNDERSTANDING. NEEDS ATTENDED TO. CALL LIGHT PLACED WITHIN REACH.
--- NOTE | 2018-11-17 21:19 | NUR ---
Paged Dr. Mota s/w Samira
[2018-11-17] MEDS ORDERED: ZOLPIDEM TARTRATE 5 MG TABLET PO PRN (21:30)
[2018-11-17] MEDS ORDERED: MAGNESIUM SULFATE 4 GM in D5W 250 ML IV ONE (21:30)
[2018-11-17 22:40] VITALS: BP_SYST 103
[2018-11-17] MEDS: DIPHENHYDRAMINE INJ 50 MG/ML VIAL IVP PRN (23:05)
[2018-11-17] MEDS: MORPHINE 4 MG/ML INJ. SYRINGE IVP PRN (23:05)
[2018-11-17] MEDS: ONDANSETRON HCL 4 MG/2 ML VIAL IVP PRN (23:05)
--- NOTE | 2018-11-17 23:13 | NUR ---
Paged Dr. Mota s/w Samira
--- NOTE | 2018-11-17 23:29 | NUR ---
DR. HOLLY CALLED AND TALKED TO DR. HOLLY, PHARMACY WANTS TO CLARIFY THE ORDER OF K-DUR 40 MEQ PO Q [address] HOLLY STATED THAT IT IS THE CORRECT ORDER.
[2018-11-17] MEDS ORDERED: MAGNESIUM SULFATE 1 GM/2 ML VIAL ONE (23:39)
[2018-11-18] VITALS (8 sets, daily range): BP systolic 98–108
[2018-11-18] MEDS: POTASSIUM CHLORIDE 20 MEQ TAB.PRT.SR PO SCH ×7 (00:01→22:40)
--- NOTE | 2018-11-18 00:12 | NUR ---
PATIENT RESTING: Patient resting quietly. No acute distress noted. Vital signs within normal range.
[2018-11-18] MEDS: DIPHENHYDRAMINE INJ 50 MG/ML VIAL IVP PRN ×6 (02:47→22:40)
[2018-11-18] MEDS: ONDANSETRON HCL 4 MG/2 ML VIAL IVP PRN ×6 (02:47→22:39)
[2018-11-18] MEDS: MORPHINE 4 MG/ML INJ. SYRINGE IVP PRN ×6 (02:48→22:39)
--- NOTE | 2018-11-18 04:10 | NUR ---
PATIENT RESTING: Patient resting quietly. No acute distress noted. Vital signs within normal range.
--- NOTE | 2018-11-18 06:50 | NUR ---
closing notes patient awake, vitals stable, all needs attended to. safety measures maintained. call light placed within reach.
--- NOTE | 2018-11-18 07:26 | NUR ---
am rounds: Patient is oriented x4. Pain level is 5/10 on the left knee, was medicated at 0643. Call light within reach.
[2018-11-18] MEDS ORDERED: MORPHINE SULFATE 15 MG TABLET.ER PO SCH (09:00)
[2018-11-18] MEDS: CYCLOBENZAPRINE HCL 10 MG TABLET (FLEXERIL) PO SCH ×3 (09:21→20:59)
[2018-11-18] MEDS: DULoxetine HCL 30 MG CAPSULE.DR (CYMBALTA) PO SCH (09:21)
[2018-11-18] MEDS: COLCHICINE 0.6 MG TABLET PO SCH ×2 (09:21→20:59)
[2018-11-18] MEDS: SPIRONOLACTONE 50 MG TABLET (ALDACTONE) PO SCH (09:22)
[2018-11-18] MEDS: aMILoride HCL 5 MG TABLET PO SCH ×2 (09:22→21:00)
--- NOTE | 2018-11-18 11:40 | NUR ---
MD rounds: Seen by Dr. Mota , plan of care discussed with the patient.
[2018-11-18] MEDS ORDERED: LORazepam 1 MG TABLET PO ONE (12:00)
[2018-11-18 12:26] LABS: HEMATOCRIT 34.7 % (36-48); HEMOGLOBIN 11.1 g/dL (12.0-16.0); MEAN CORPUSCULAR HEMOGLOBIN 26 pg (27-31); MEAN CORPUSCULAR HGB CONC 32 % (32-36); MEAN CORPUSCULAR VOLUME 82 fL (79.0-98.0); RED BLOOD CELL COUNT(AUTO) 4.22 MIL/uL (4.2-6.2); WHITE BLOOD COUNT (AUTO) 9.1 K/uL (4.8-10.8)
[2018-11-18 12:27] LABS: BASOPHILS # (AUTO) 0.1 K/uL (0.0-0.2); BASOPHILS % (AUTO) 1.3 % (0.0-2.0); EOSINOPHILS # (AUTO) 0.2 K/uL (0.0-0.4); EOSINOPHILS % (AUTO) 2.7 % (0.0-4.0); LYMPHOCYTES # (AUTO) 3.4 K/uL (1.0-5.5); LYMPHOCYTES % (AUTO) 37.2 % (20.5-51.5); MONOCYTES # (AUTO) 0.7 K/uL (0.0-1.0); MONOCYTES % (AUTO) 7.5 % (1.7-9.3); NEUTROPHILS # (AUTO) 4.7 K/uL (1.8-7.7); NEUTROPHILS % (AUTO) 51.3 % (40.0-70.0); PLATELET COUNT (AUTO) 402 K/uL (130-430); RED CELL DISTRIBUTION WIDTH 15.4 % (9.0-15.0)
[2018-11-18] MEDS ORDERED: CYANOCOBALAMIN 1000 MCG/ML VIAL IM ONE (12:30)
[2018-11-18 12:39] LABS: CALCIUM 8.7 mg/dL (8.4-11.0); CREATININE 0.92 mg/dL (0.55-1.30); POTASSIUM 3.6 mmol/L (3.5-5.1)
[2018-11-18 12:41] LABS: ALBUMIN 3.5 g/dL (3.4-4.8); PHOSPHORUS 3.9 mg/dL (2.7-4.5); TOTAL BILIRUBIN 0.4 mg/dL (0.0-1.0)
[2018-11-18] MEDS: MAGNESIUM CHLORIDE 64 MG TABLET.DR PO SCH ×3 (13:07→21:01)
--- NOTE | 2018-11-18 13:13 | NUR ---
Vit B12: Refused B12 injection this time. Prefers to have it before discharge home.
--- NOTE | 2018-11-18 16:00 | NUR ---
IV start: IV is infitrated. Started gauge 22 on the left upper arm with blood return on first attempt. Secured with tegaderm. Removed old IV, no bleeding, covered with 2x2.
[2018-11-18] MEDS: MORPHINE SULFATE 15 MG TABLET.ER PO SCH ×2 (16:53→20:59)
--- NOTE | 2018-11-18 16:57 | NUR ---
MS contin: 1500 dose given late per patient's request. Patient had morphine IVP before 1500
--- NOTE | 2018-11-18 18:04 | NUR ---
end of shift: needs attended. no change in assessment.
[2018-11-18] MEDS ORDERED: NS IV ONE (19:00)
[2018-11-18] MEDS ORDERED: MAGNESIUM SULFATE IV ONE (19:00)
--- NOTE | 2018-11-18 19:30 | NUR ---
ROUNDS PATIENT RESTING COMFORTABLY IN BED, NOT IN DISTRESS, VITALS STABLE, NO PAIN AT THIS TIME. ASSESSMENT DONE AND DOCUMENTED. SEE FLOWSHEET. NEEDS ATTENDED TO. SAFETY AND FALL PRECAUTION MEASURES IN PLACED. CALL LIGHT PLACED WITHIN REACH.
[2018-11-18] MEDS: LORazepam 1 MG TABLET PO SCH (20:59)
--- NOTE | 2018-11-18 21:10 | NUR ---
MEDICATIONS DUE MEDICATIONS GIVEN SCHEDULED, TOLERATED WELL. WILL CONTINUE TO MONITOR.
[2018-11-19 00:11] VITALS: BP_SYST 112
--- NOTE | 2018-11-19 00:13 | NUR ---
PATIENT RESTING: Patient resting quietly. No acute distress noted. Vital signs within normal range.
--- NOTE | 2018-11-19 02:00 | NUR ---
ROUNDS PATIENT ASLEEP, RESPIRATIONS EVEN AND UNLABORED. WILL CONTINUE TO MONITOR.
[2018-11-19] MEDS: DIPHENHYDRAMINE INJ 50 MG/ML VIAL IVP PRN ×4 (02:28→15:00)
[2018-11-19] MEDS: ONDANSETRON HCL 4 MG/2 ML VIAL IVP PRN ×4 (02:28→15:00)
[2018-11-19] MEDS: POTASSIUM CHLORIDE 20 MEQ TAB.PRT.SR PO SCH ×4 (02:29→14:12)
[2018-11-19] MEDS: MORPHINE 4 MG/ML INJ. SYRINGE IVP PRN ×4 (02:29→15:00)
[2018-11-19 04:05] LABS: BILIRUBIN,URINE NEGATIVE (NEGATIVE); BLOOD, URINE NEGATIVE (NEGATIVE); CLARITY/URINE CLEAR (CLEAR); COLOR,URINE YELLOW (YELLOW); GLUCOSE,URINE NEGATIVE (NEGATIVE); KETONES,URINE NEGATIVE (NEGATIVE); LEUKOCYTE ESTERASE ,URINE TRACE (NEGATIVE); NITRITE, URINE NEGATIVE (NEGATIVE); PROTEIN URINE NEGATIVE (NEGATIVE); UROBILINOGEN,URINE 0.2 (0.2-1.0)
[2018-11-19 04:56] LABS: BACTERIA,URINE MODERATE /HPF (None Seen); RBC,URINE 0-3 /HPF (0-3)
--- NOTE | 2018-11-19 06:19 | NUR ---
CLOSING NOTES PATIENT AWAKE, VITALS STABLE, ALL NEEDS ATTENDED TO. SAFETY AND FALL PRECAUTION MEASURES IN PLACED. CALL LIGHT PLACED WITHIN REACH.
[2018-11-19 07:17] LABS: CALCIUM 8.5 mg/dL (8.4-11.0); CREATININE 1.03 mg/dL (0.55-1.30); POTASSIUM 4.2 mmol/L (3.5-5.1)
--- NOTE | 2018-11-19 07:30 | NUR ---
OPENING NOTE Patient resting in the bed. No acute distress. AAO x 4. Skin warm and dry to touch. SL intact to LFA, no redness, no swelling, patent. Discussed the safety issue, use call light when needs help, and plan of care, verbally understanding. Safety measure maintained. Bed in low position, side rails up. Refused bed alarm, risk and benefit explained, verbally understanding. Call light within reached. Continue to monitor.
[2018-11-19 07:55] VITALS: BP_SYST 126
--- NOTE | 2018-11-19 09:55 | NUR ---
BATHROOM Ambulated to bathroom in steady gait. Void with yellow urine, no hematuria/dysuria noted. No acute distress. Back to bed. Safety measure maintained. Call light within reached. Continue to monitor.
[2018-11-19] MEDS: DULoxetine HCL 30 MG CAPSULE.DR (CYMBALTA) PO SCH (09:59)
[2018-11-19] MEDS: COLCHICINE 0.6 MG TABLET PO SCH (10:00)
[2018-11-19] MEDS: MORPHINE SULFATE 15 MG TABLET.ER PO SCH ×2 (10:00→14:12)
[2018-11-19] MEDS: LORazepam 1 MG TABLET PO SCH (10:00)
[2018-11-19] MEDS: CYCLOBENZAPRINE HCL 10 MG TABLET (FLEXERIL) PO SCH ×2 (10:00→14:12)
[2018-11-19] MEDS ORDERED: MAGNESIUM SULFATE 50 ML IV ONE (10:00)
[2018-11-19] MEDS: SPIRONOLACTONE 50 MG TABLET (ALDACTONE) PO SCH (10:03)
[2018-11-19] MEDS: MAGNESIUM CHLORIDE 64 MG TABLET.DR PO SCH ×2 (10:03→13:52)
[2018-11-19] MEDS: aMILoride HCL 5 MG TABLET PO SCH (10:04)
--- NOTE | 2018-11-19 10:44 | NUR ---
ZOFRAN, BENADRYL, AND MORPHINE GIVEN Patient c/o bilateral legs pain 8/10, itching and nausea. Benadryl 50mg, Zofran 4mg, and Morphine 4mg IVP given as ordered. No acute distress. Safety measure maintained. Call light within reached. Bed locked in low position, side rails up. Continue to monitor.
[2018-11-19 11:41] VITALS: BP_SYST 102
[2018-11-19 13:04] VITALS: BP_SYST 115
--- NOTE | 2018-11-19 13:34 | NUR ---
SEEN AND EXAMINED BY DR. ELAYNE Mota with order of Vitamin B 12 1mg IM, Rocephin 1gm IVPB, and Ferrlecit 125mg IVPB. All should give before patient discharge home. Prescription of Cipro 500mg PO BID to patient for UTI.
[2018-11-19] MEDS ORDERED: CYANOCOBALAMIN 1000 MCG/ML VIAL IM ONE (13:45)
[2018-11-19] MEDS ORDERED: SOD FERRIC GLUC COMPLEX/SUC 125 MG in NS 100 ML IV SCH (13:45)
[2018-11-19] MEDS ORDERED: cefTRIAXone 1 GM IVPB PREMIX 50 ML IV ONE (13:45)
--- NOTE | 2018-11-19 14:24 | NUR ---
Dietitian Recommendations *Recommend [facility] [place] diet *Recommend [facility] [place] diet appropriate snacks BID in-between meals LP, RD Please refer to Nutrition Assessment for details.
--- NOTE | 2018-11-19 15:00 | NUR ---
MEDICATION Patient c/o both legs pain 8/10, nausea, and itching. Morphine, Zofran and Benadryl IVP given as order. Vitamin B 12 IM given as order to left deltoid, no bleeding noted. Hang Ferrlecit 125mg IVPB at this time. Safety measure maintained. Call light within reached. Continue to monitor.
[2018-11-19 15:38] VITALS: BP_SYST 121
[2018-11-19] MEDS ORDERED: CIPR-211 PO (16:16)
--- NOTE | 2018-11-19 16:40 | NUR ---
D/C Patient Patient given medication reconciliation form and D/C instructions. Exit Care provided. Patient verbalized understanding. MD discussed with patient the results and treatment provided. Ambulatory with steady gait for discharge to home. Patient in stable condition, ID band removed. IV catheter removed, intact and dressing applied, no active bleeding. Rx of Cipro given. Patient educated on pain management. All belongings sent with patient.
== END 2018-11-19 16:40 | disposition home or self-care (01) | DRG 699 ==
LOC: SMU 19:11 → STU 19:18
PROVIDERS: ADMIT Internal Medicine; ATTEND Internal Medicine
DX: N25.89 Other disorders resulting from impaired renal tubular function (principal); N39.0 Urinary tract infection, site not specified; E83.42 Hypomagnesemia; E87.6 Hypokalemia; F41.9 Anxiety disorder, unspecified; F32.9 Major depressive disorder, single episode, unspecified; G89.4 Chronic pain syndrome; E66.9 Obesity, unspecified; E03.9 Hypothyroidism, unspecified; J20.9 Acute bronchitis, unspecified; R73.9 Hyperglycemia, unspecified; D64.9 Anemia, unspecified; Z90.710 Acquired absence of both cervix and uterus; Z88.0 Allergy status to penicillin; Z91.018 Allergy to other foods; M11.20 Other chondrocalcinosis, unspecified site
CPT/HCPCS: 36415; 80048; 80053; 81000-TC; 83735-TC; 84100-TC; 85025; 87081; G0378; J0696; J1200; J2270; J2405; J2916; J3420; J3475; J7050; J7060

== ENCOUNTER 2018-11-28 16:20 | Emergency (ER) | payer OTHER ==
[~2018-11-28] VITALS: Ht 162.6 cm; Wt 106.6 kg
[~2018-11-28 16:20] MED LIST changes: +CIPR-211 PO
[2018-11-28] MEDS ORDERED: NACL 0.9% 1,000 ML IV ONE ×2 (16:24→17:02)
[2018-11-28] MEDS ORDERED: KETOROLAC TROMETHAMINE 30 MG VIAL IVP ONE (16:30)
[2018-11-28 16:47] VITALS: BP_SYST 128
[2018-11-28 16:56] LABS: BASOPHILS # (AUTO) 0.1 K/uL (0.0-0.2); BASOPHILS % (AUTO) 0.8 % (0.0-2.0); EOSINOPHILS # (AUTO) 0.1 K/uL (0.0-0.4); EOSINOPHILS % (AUTO) 0.4 % (0.0-4.0); HEMATOCRIT 42.1 % (36-48); HEMOGLOBIN 13.5 g/dL (12.0-16.0); LYMPHOCYTES % (AUTO) 24.5 % (20.5-51.5); MEAN CORPUSCULAR HEMOGLOBIN 27 pg (27-31); MEAN CORPUSCULAR HGB CONC 32 % (32-36); MEAN CORPUSCULAR VOLUME 83 fL (79.0-98.0); MONOCYTES # (AUTO) 0.6 K/uL (0.0-1.0); MONOCYTES % (AUTO) 4.8 % (1.7-9.3); NEUTROPHILS # (AUTO) 8.5 K/uL (1.8-7.7); NEUTROPHILS % (AUTO) 69.5 % (40.0-70.0); PLATELET COUNT (AUTO) 455 K/uL (130-430); RED BLOOD CELL COUNT(AUTO) 5.09 MIL/uL (4.2-6.2); RED CELL DISTRIBUTION WIDTH 16.2 % (9.0-15.0); WHITE BLOOD COUNT (AUTO) 12.3 K/uL (4.8-10.8)
[2018-11-28 16:59] LABS: CALCIUM 9.9 mg/dL (8.4-11.0); CREATININE 1.17 mg/dL (0.55-1.30); POTASSIUM 3.7 mmol/L (3.5-5.1)
[2018-11-28 17:02] LABS: PROTHROMBIN TIME 10.3 SECS (9.5-12.5)
[2018-11-28 17:03] LABS: ALBUMIN 4.2 g/dL (3.4-4.8); TOTAL BILIRUBIN 0.7 mg/dL (0.0-1.0)
[2018-11-28] MEDS ORDERED: MORPHINE 4 MG/ML INJ. SYRINGE IVP ONE ×2 (17:15→18:30)
[2018-11-28] MEDS ORDERED: DIPHENHYDRAMINE INJ 50 MG/ML VIAL IVP ONE ×2 (17:15→18:30)
[2018-11-28] MEDS ORDERED: MAGNESIUM SULFATE 1 GM in NS 100 ML IV ONE (18:00)
[2018-11-28] MEDS ORDERED: MAGNESIUM SULFATE 1 GM/2 ML VIAL ONE (18:19)
[2018-11-28] MEDS ORDERED: ONDANSETRON HCL 4 MG/2 ML VIAL IVP ONE (18:30)
[2018-11-28 20:37] VITALS: BP_SYST 128
== END 2018-11-28 20:37 | disposition home or self-care (01) ==
LOC: SED 16:20
DX: N23 Unspecified renal colic (principal); E83.42 Hypomagnesemia; M79.7 Fibromyalgia; I10 Essential (primary) hypertension; F41.9 Anxiety disorder, unspecified; Z76.5 Malingerer [conscious simulation]; Z88.0 Allergy status to penicillin; Z91.018 Allergy to other foods; Z79.899 Other long term (current) drug therapy
CPT/HCPCS: 36415; 80053; 82150; 83690; 83735; 85025; 85610; 85730; 96361; 96365; 96375; 96376; 99283; J1200; J1885; J2270; J2405; J3475; J7030

== ENCOUNTER 2018-12-02 21:06 | Observation (INO) | payer OTHER ==
[~2018-12-02] VITALS: Ht 162.6 cm; Wt 113.9 kg
[2018-12-02 21:14] VITALS: BP_SYST 113
--- NOTE | 2018-12-02 21:18 | NUR ---
Patient to ER bed 08 to gown for evaluation. Side rails up.
--- NOTE | 2018-12-02 21:30 | NUR ---
Note undone in EDM - 12/02/18 at 2312 by [email or web address] Pt came to the ED for bilateral leg ang knee pain which stared around 1300. Pain 05/17 and describes it as a sharp pain. Denies trauma or recent injury. Denies chest pain, SOB, swelling or bruising. No other complaints/injuries noted. Will cont. to monitor.
--- NOTE | 2018-12-02 21:30 | NUR ---
Pt came to the ED for bilateral leg and knee pain which stared around 1300. Pain 9/10 and describes it as a sharp pain. Denies trauma or recent injury. Denies chest pain, SOB, swelling or bruising. No other complaints/injuries noted. Will cont. to monitor.
--- NOTE | 2018-12-02 21:32 | NUR ---
ER at bedside examining patient.
[2018-12-02] MEDS ORDERED: NACL 0.9% IV ONE (21:45)
[2018-12-02] MEDS ORDERED: MAGNESIUM SULFATE 1 GM/2 ML VIAL IVP ONE (21:45)
[2018-12-02] MEDS ORDERED: DIPHENHYDRAMINE INJ 50 MG/ML VIAL IVP ONE (21:45)
[2018-12-02] MEDS ORDERED: MAGNESIUM SULFATE IV ONE (21:45)
[2018-12-02] MEDS ORDERED: MORPHINE 4 MG/ML INJ. SYRINGE IVP ONE ×3 (21:45→23:45)
[2018-12-02 21:52] LABS: BILIRUBIN,URINE NEGATIVE (NEGATIVE); BLOOD, URINE NEGATIVE (NEGATIVE); CLARITY/URINE CLEAR (CLEAR); COLOR,URINE YELLOW (YELLOW); GLUCOSE,URINE NEGATIVE (NEGATIVE); KETONES,URINE NEGATIVE (NEGATIVE); LEUKOCYTE ESTERASE ,URINE NEGATIVE (NEGATIVE); NITRITE, URINE NEGATIVE (NEGATIVE); PROTEIN URINE NEGATIVE (NEGATIVE); UROBILINOGEN,URINE 0.2 (0.2-1.0)
[2018-12-02 22:14] LABS: ANION GAP 6 (5-15); CALCIUM 8.4 mg/dL (8.4-11.0); CHLORIDE 99 mmol/L (98-107); CREATININE 0.99 mg/dL (0.55-1.30); GLUCOSE 187 mg/dL (70-99); SODIUM SERUM 137 mmol/L (136-145); UREA NITROGEN, BLOOD 13 mg/dL (8-21)
--- NOTE | 2018-12-02 22:15 | NUR ---
Pt medicated with morphine 4mg IVP per MD order. Tolerated well. Will cont. to monitor. Pt on cardiac/O2 monitor.
[2018-12-02 22:18] LABS: GFR AFRICAN AMERICAN 76 mL/min (>90)
--- NOTE | 2018-12-02 22:18 | NUR ---
Pt medicated with benadryl 25 mg IVP per MD order. Tolerated well. Will cont. to monitor.
[2018-12-02 22:19] LABS: ALANINE AMINOTRANSFERASE 23 U/L (12-78); ALBUMIN 3.6 g/dL (3.4-4.8); ASPARTATE AMINOTRANSFERASE 12 U/L (10-37); TOTAL BILIRUBIN 0.4 mg/dL (0.0-1.0)
[2018-12-02 22:20] LABS: POTASSIUM 2.6 mmol/L (3.5-5.1)
[2018-12-02] MEDS ORDERED: MAGNESIUM SULFATE 50 ML IV ONE ×2 (22:20→23:05)
[2018-12-02] MEDS ORDERED: POTASSIUM CHLORIDE 40 MEQ, MAGNESIUM SULFATE 4 GM in 0.45% NS 250 ML IV ONE (22:30)
[2018-12-02] MEDS ORDERED: KCL 20 mEq in 100 mL (PREMIX) 100 ML IV ONE (22:30)
[2018-12-02] MEDS ORDERED: MAGNESIUM SULFATE 4 GM in D5W 250 ML IV ONE (22:30)
[2018-12-02] MEDS ORDERED: POTASSIUM CHLORIDE 20 MEQ TAB.PRT.SR PO ONE ×2 (22:30→23:00)
[2018-12-02] MEDS ORDERED: MAGNESIUM SULFATE 1 GM/2 ML VIAL IV ONE (22:30)
[2018-12-02 22:36] LABS: HEMATOCRIT 36.5 % (36-48); HEMOGLOBIN 11.8 g/dL (12.0-16.0); MEAN CORPUSCULAR HEMOGLOBIN 27 pg (27-31); MEAN CORPUSCULAR HGB CONC 32 % (32-36); MEAN CORPUSCULAR VOLUME 82 fL (79.0-98.0); RED BLOOD CELL COUNT(AUTO) 4.44 MIL/uL (4.2-6.2); WHITE BLOOD COUNT (AUTO) 12.5 K/uL (4.8-10.8)
[2018-12-02 22:37] LABS: BASOPHILS # (AUTO) 0.1 K/uL (0.0-0.2); BASOPHILS % (AUTO) 0.6 % (0.0-2.0); EOSINOPHILS # (AUTO) 0.3 K/uL (0.0-0.4); EOSINOPHILS % (AUTO) 2.1 % (0.0-4.0); LYMPHOCYTES # (AUTO) 3.2 K/uL (1.0-5.5); LYMPHOCYTES % (AUTO) 25.4 % (20.5-51.5); MONOCYTES # (AUTO) 0.8 K/uL (0.0-1.0); MONOCYTES % (AUTO) 6.1 % (1.7-9.3); NEUTROPHILS # (AUTO) 8.2 K/uL (1.8-7.7); NEUTROPHILS % (AUTO) 65.8 % (40.0-70.0); PLATELET COUNT (AUTO) 370 K/uL (130-430); RED CELL DISTRIBUTION WIDTH 16.1 % (9.0-15.0)
--- NOTE | 2018-12-02 22:43 | NUR ---
Pt medicated with Potassium PO 40 mg per MD order. Tolerated well. Will cont. to monitor. Pt on baseball winder.
[2018-12-02] MEDS ORDERED: ZOLPIDEM TARTRATE 5 MG TABLET PO PRN (22:45)
[2018-12-02] MEDS ORDERED: DIPHENHYDRAMINE INJ 50 MG/ML VIAL IVP SCH (23:00)
--- NOTE | 2018-12-02 23:00 | NUR ---
Patient will be admitted to care of Dr. Mota. Admitted to Tele unit. Will go to room 119B. Belongings list completed. Summary report printed. Report will be given at bedside.
--- NOTE | 2018-12-02 23:00 | NUR ---
Note jaime in ED - 12/03/18 at 0036 by [email or web address] Patient will be admitted to care of Dr. Mota. Admitted to TELE unit. Will go to room 118B. Belongings list completed. Summary report printed. Report will be given at bedside.
--- NOTE | 2018-12-02 23:02 | NUR ---
Pt medicated with additional 40 mg Potassium PO per MD order. Tolerated well. Will cont. to monitor.
[2018-12-02] MEDS ORDERED: POTASSIUM CHLORIDE 20 MEQ TAB.PRT.SR ONE (23:09)
--- NOTE | 2018-12-02 23:28 | NUR ---
Transfer to Tele via ACLS protocol. Licensed nurse present. IV present no signs or symptoms of infiltration.
--- NOTE | 2018-12-02 23:29 | NUR ---
ADMISSION: The patient, DEVANG ZAMBRANO, 53 y/o, F admitted by MEG HOLLY MD, with the diagnosis of CRITICAL MAGNESIUM , AND CRITICAL POTASSIUM , was given written information regarding hospital policies, unit procedures and contact persons. PT is alert and oriented .
[2018-12-02 23:33] VITALS: BP_SYST 98
--- NOTE | 2018-12-02 23:43 | NUR ---
PATIENT IS COMPLAINING OF PAIN. CALLED DR HOLLY, AND MADE HIM AWARE THAT THE PATIENT REFUSES PRN MORPHINE 4MG, BECAUSE THE PATIENT WOULD LIKE 8MG INSTEAD. DR HOLLY ORDERED FOR ONE TIME DOSE MORPHINE 6MG IVP. ORDERS NOTED.
--- NOTE | 2018-12-03 00:05 | NUR ---
PATIENT COMPLAINING OF PAIN. PROVIDED MORPHINE PRN PER MD ORDER, SEE EMAR FOR DETAILS.
[2018-12-03] MEDS: DIPHENHYDRAMINE INJ 50 MG/ML VIAL IVP PRN ×6 (00:07→20:28)
--- NOTE | 2018-12-03 00:30 | NUR ---
PATIENT REFUSES BED ALARM AT THIS TIME. BED IS LOCKED, IN THE LOWEST POSITION, 2X SIDE RAILS UP. CALL LIGHT IS WITHIN REACH. ENCOURAGED PATIENT TO CALL FOR ASSISTANCE.
[2018-12-03] MEDS: ONDANSETRON HCL 4 MG/2 ML VIAL IVP PRN ×2 (01:39→16:32)
--- NOTE | 2018-12-03 01:41 | NUR ---
Patient complaining of nausea. Provided with Zofran PRN IVP per MD order, see eMAR for details.
--- NOTE | 2018-12-03 04:41 | NUR ---
patient is complaining of pain. provided morphine prn per md order, see emar for details.
[2018-12-03] MEDS: MORPHINE 4 MG/ML INJ. SYRINGE IVP PRN ×2 (04:42→08:21)
--- NOTE | 2018-12-03 06:33 | NUR ---
Closing Notes Patient is resting comfortably in bed, awake and alert. No SOB, no acute distress, no complaints of pain at this time. IV site intact, dressing clean and dry, saline locked. Bed is locked, in the lowest position, 2x side rails up. Patient refuses bed alarm. Call light within reach. Fall and safety precautions maintained. All needs have been met during this shift. Will endorse care to oncoming dayshift nurse.
--- NOTE | 2018-12-03 07:23 | NUR ---
Opening Notes Patient in bed resting aaox4 and able to verbalize her needs. Significant other is at the bedside. Lungs and heart sound wnl. Complaints of bilateral leg pain 05/17. Informed patient of when next pain medication is due. She is ambulatory with a steady gait. IV on the right AC 20g , patient with KCL infusing. Once complete, will TKO the IV at 5ml/hr. Oriented the patient to the room and use of the call light. Safety precautions in place. Addendum: 12/04/18 at 0424 by Augie Carranza RN Wrong time
[2018-12-03 08:00] VITALS: BP_SYST 112
--- NOTE | 2018-12-03 08:00 | NUR ---
AM NOTES In bed awake, complain of severe pain on both lower legs. ambulate with steady gait. no acute distress noted. Sinus Rythm on the monitor. will monitor.
--- NOTE | 2018-12-03 09:00 | NUR ---
notes- Per patient, morphine 4 mg is not really helping at this time. will pagezamzam WATSON.
--- NOTE | 2018-12-03 09:17 | NUR ---
PAGED DR HOLLY FOR ORDERS. SPOKE WITH PATRICK
[2018-12-03] MEDS ORDERED: CHOLECALCIFEROL (VITAMIN D-3) 400 UNIT TABLET PO ONE (10:00)
[2018-12-03] MEDS ORDERED: DULoxetine HCL 30 MG CAPSULE.DR (CYMBALTA) PO ONE (10:00)
[2018-12-03] MEDS ORDERED: COLCHICINE 0.6 MG TABLET PO PRN (10:00)
[2018-12-03] MEDS ORDERED: aMILoride HCL 5 MG TABLET PO ONE (10:00)
[2018-12-03] MEDS ORDERED: LORazepam 1 MG TABLET PO SCH (10:00)
[2018-12-03] MEDS ORDERED: IPRATROPIUM/ALBUTEROL SULFATE 3 ML AMPUL.NEB (DUONEB) INH ONE (10:00)
[2018-12-03] MEDS ORDERED: SPIRONOLACTONE 50 MG TABLET (ALDACTONE) PO ONE (10:00)
[2018-12-03] MEDS ORDERED: MORPHINE SULFATE 30 MG Immediate Release TABLET PO SCH (10:00)
[2018-12-03] MEDS ORDERED: CYCLOBENZAPRINE HCL 10 MG TABLET (FLEXERIL) PO ONE (10:00)
[2018-12-03] MEDS ORDERED: POTASSIUM CHLORIDE 20 MEQ TAB.PRT.SR PO ONE (10:45)
[2018-12-03] MEDS ORDERED: MAGNESIUM CHLORIDE 64 MG TABLET.DR PO ONE (11:00)
[2018-12-03 11:30] VITALS: BP_SYST 116
[2018-12-03 11:31] VITALS: BP_SYST 116
[2018-12-03] MEDS: MORPHINE SULFATE 10 MG/ML VIAL IVP PRN ×3 (12:06→20:27)
--- NOTE | 2018-12-03 12:13 | NUR ---
notes In bed, complain of sever pain on her both legs. medicated with morphine as ordered. will monitor.
[2018-12-03] MEDS ORDERED: IPRATROPIUM/ALBUTEROL SULFATE 120 PUFFS/4 GM INH INH SCH (13:00)
[2018-12-03] MEDS: MAGNESIUM CHLORIDE 64 MG TABLET.DR PO SCH ×3 (13:00→20:32)
--- NOTE | 2018-12-03 13:29 | NUR ---
ZANDAR Melgart: Met with patient at bedside. Patient mentioned her insurance will be straight medicare starting December 06, 2018. 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 Per Patient, she has been diagnosed with this disease since her early 20's at [facility]. Patient verbalized she used to work for [employer] for about 13 years until she became disabled and was unable to work. Last worked was 2013. Patient verbalized has history of depression/anxiety but is well managed by medications. Denies any history of mental illness nor Suicidal Ideation. Has good family support. Has wheelchair ramp at home. -LOREN/RN
[2018-12-03 15:24] LABS: CALCIUM 8.9 mg/dL (8.4-11.0); CREATININE 1.12 mg/dL (0.55-1.30)
[2018-12-03 15:28] LABS: POTASSIUM 2.9 mmol/L (3.5-5.1)
--- NOTE | 2018-12-03 16:00 | NUR ---
NOTES- COMPLAIN OF PAIN ON BOTH KNEE, MEDICATED ORDERED. WILL MONITOR.
[2018-12-03 16:32] VITALS: BP_SYST 101
[2018-12-03] MEDS ORDERED: POTASSIUM CHLORIDE 40 MEQ, MAGNESIUM SULFATE 4 GM, LIDOCAINE JECT 2% PF 100 MG 50 MG in... IV ONE ×4 (16:45)
[2018-12-03] MEDS ORDERED: POTASSIUM CHLORIDE 20 MEQ TAB.PRT.SR PO SCH (17:00)
[2018-12-03] MEDS: POTASSIUM CHLORIDE 20 MEQ TAB.PRT.SR PO SCH ×2 (17:42→20:31)
--- NOTE | 2018-12-03 18:38 | NUR ---
NOTES IN BED, EATING DINNER. C/O PAIN ON BOTH KNEE, CHOLCHICINE GIVEN ORDERED AND APPLIED ICE PACK. Andrew OLGUIN AND MAG OLGUIN RUNNING AT THIS TIME. NO CHANGE IN ASSESSMENT. ALL NEEDS MEET. WILL ENDORSE.
--- NOTE | 2018-12-03 19:23 | NUR ---
Opening Notes Patient in bed resting aaox4 and able to verbalize her needs. Significant other is at the bedside. Lungs and heart sound wnl. Complaints of bilateral leg pain 9/10. Informed patient of when next pain medication is due. She is ambulatory with a steady gait. IV on the right AC 20g , patient with KCL infusing. Once complete, will TKO the IV at 5ml/hr. Oriented the patient to the room and use of the call light. Safety precautions in place.
[2018-12-03] MEDS: IPRATROPIUM/ALBUTEROL SULFATE 3 ML AMPUL.NEB (DUONEB) INH SCH (19:53)
[2018-12-03 20:00] VITALS: BP_SYST 105
[2018-12-03] MEDS: aMILoride HCL 5 MG TABLET PO SCH (20:30)
[2018-12-03] MEDS: CYCLOBENZAPRINE HCL 10 MG TABLET (FLEXERIL) PO SCH (20:31)
[2018-12-03] MEDS: COLCHICINE 0.6 MG TABLET PO SCH (20:31)
[2018-12-03] MEDS: CHOLECALCIFEROL (VITAMIN D-3) 400 UNIT TABLET PO SCH (20:31)
--- NOTE | 2018-12-03 22:15 | NUR ---
Patient is awake in bed. IV tko to 5ml/hr. no respiratory distress. pain tolerable. call light within reach.
[2018-12-04 00:12] VITALS: BP_SYST 97
--- NOTE | 2018-12-04 00:20 | NUR ---
Administered Morphine, benadryl, and zofran. Tolerated well. No respiratory distress. Call light within reach.
[2018-12-04] MEDS: ONDANSETRON HCL 4 MG/2 ML VIAL IVP PRN ×6 (01:01→20:52)
[2018-12-04] MEDS: DIPHENHYDRAMINE INJ 50 MG/ML VIAL IVP PRN ×6 (01:02→20:51)
[2018-12-04] MEDS: MORPHINE SULFATE 10 MG/ML VIAL IVP PRN ×6 (01:02→20:52)
[2018-12-04] MEDS: POTASSIUM CHLORIDE 20 MEQ TAB.PRT.SR PO SCH ×6 (01:14→21:07)
--- NOTE | 2018-12-04 02:02 | NUR ---
patient in bed resting. no complaints of pain or respiratory distress. call light within reach.
--- NOTE | 2018-12-04 04:33 | NUR ---
No change in condition.
[2018-12-04 06:58] LABS: CALCIUM 8.9 mg/dL (8.4-11.0); CREATININE 0.87 mg/dL (0.55-1.30); PHOSPHORUS 3.5 mg/dL (2.7-4.5); POTASSIUM 3.9 mmol/L (3.5-5.1)
--- NOTE | 2018-12-04 07:02 | NUR ---
Closing Notes Patient in bed resting. Administered pain medications and tolerated well. Patient ambulated the hallway with a steady gait. IV site on the right AC clean dry and intact. All needs have been met and will endorse care to oncoming shift.
[2018-12-04] MEDS: IPRATROPIUM/ALBUTEROL SULFATE 3 ML AMPUL.NEB (DUONEB) INH SCH ×4 (07:15→19:49)
[2018-12-04 07:25] LABS: HEMATOCRIT 32.4 % (36-48); HEMOGLOBIN 10.5 g/dL (12.0-16.0); MEAN CORPUSCULAR VOLUME 83 fL (79.0-98.0); WHITE BLOOD COUNT (AUTO) 8.8 K/uL (4.8-10.8)
[2018-12-04 07:26] LABS: BASOPHILS # (AUTO) 0.1 K/uL (0.0-0.2); BASOPHILS % (AUTO) 1.1 % (0.0-2.0); EOSINOPHILS # (AUTO) 0.3 K/uL (0.0-0.4); EOSINOPHILS % (AUTO) 3.8 % (0.0-4.0); LYMPHOCYTES # (AUTO) 2.9 K/uL (1.0-5.5); LYMPHOCYTES % (AUTO) 32.7 % (20.5-51.5); MEAN CORPUSCULAR HEMOGLOBIN 27 pg (27-31); MEAN CORPUSCULAR HGB CONC 32 % (32-36); MONOCYTES # (AUTO) 0.6 K/uL (0.0-1.0); MONOCYTES % (AUTO) 6.7 % (1.7-9.3); NEUTROPHILS # (AUTO) 4.9 K/uL (1.8-7.7); NEUTROPHILS % (AUTO) 55.7 % (40.0-70.0); PLATELET COUNT (AUTO) 350 K/uL (130-430)
[2018-12-04 08:00] VITALS: BP_SYST 119
--- NOTE | 2018-12-04 08:00 | NUR ---
AM NOTES IN BED, EATING BREAKFAST. COMPLAIN OF PAIN ON HER BOTH KNEE. APPLIED ICE PACKS FOR NOW. WILL MEDICATE. NO DISTRESS NOTED. SAFETY PRECAUTION OBSERVED. WILL MONITOR.
[2018-12-04] MEDS: CYCLOBENZAPRINE HCL 10 MG TABLET (FLEXERIL) PO SCH ×3 (08:54→20:50)
[2018-12-04] MEDS: COLCHICINE 0.6 MG TABLET PO SCH ×2 (08:54→20:50)
[2018-12-04] MEDS: aMILoride HCL 5 MG TABLET PO SCH ×2 (08:55→21:09)
[2018-12-04] MEDS: MAGNESIUM CHLORIDE 64 MG TABLET.DR PO SCH ×4 (08:56→21:08)
[2018-12-04] MEDS ORDERED: SPIRONOLACTONE 50 MG TABLET (ALDACTONE) PO SCH (09:00)
[2018-12-04] MEDS ORDERED: DULoxetine HCL 30 MG CAPSULE.DR (CYMBALTA) PO SCH (09:00)
[2018-12-04] MEDS: CHOLECALCIFEROL (VITAMIN D-3) 400 UNIT TABLET PO SCH ×2 (09:03→20:50)
--- NOTE | 2018-12-04 12:01 | NUR ---
Notes- In bed, no acute distress noted. complain of knee pain, ice packs given. will monitor.
[2018-12-04] MEDS ORDERED: MAGNESIUM SULFATE 4 GM in D5W 250 ML IV ONE (12:45)
[2018-12-04 13:00] LABS: TOTAL IRON BIND. CAPACITY 413 ug/dL (250-450)
[2018-12-04] MEDS ORDERED: MULTIVITS,CA,MINERALS/IRON/FA 1 TABLET PO ONE (13:00)
[2018-12-04] MEDS ORDERED: IRON SUCROSE COMPLEX 200 MG in NS 100 ML IV ONE (13:30)
[2018-12-04] MEDS ORDERED: IPRATROPIUM/ALBUTEROL SULFATE 3 ML AMPUL.NEB (DUONEB) ONE (15:17)
--- NOTE | 2018-12-04 15:28 | NUR ---
Notes- in bed, watching TV. Iron is infusing at this time. Will give magnesium after iron is done. no distress noted.
[2018-12-04 16:00] VITALS: BP_SYST 102
--- NOTE | 2018-12-04 16:23 | NUR ---
Dietitian Recommendations * Recommend continuing regular diet per MD * Consider [facility] diet if pt is willing LP, RD Please refer to Nutrition Assessment for details.
--- NOTE | 2018-12-04 19:15 | NUR ---
OPENING NOTE RECEIVED CARE OF PT. PT SITTING UP IN BED, AAOX4, REPORTS PAIN TO HER BILATERAL LOWER EXTREMITIES, BREATHING IS UNLABORED TO ROOM AIR. IVF ARE INFUSING ORDERED. NO S/S OF ACUTE DISTRESS. ENCOURAGED PT TO CALL FOR ASSISTANCE. SAFETY PRECAUTIONS IN PLACE. WILL MONITOR.
--- NOTE | 2018-12-04 20:52 | NUR ---
PRN MEDICATIONS ADMINISTERED MORPHINE 6 MG IVP ADMINISTERED FOR SEVERE PAIN. BENADRYL 50 MG IVP ADMINISTERED. ZOFRAN 4 MG IVP ADMINISTERED PER PT REQUEST. MEDICATIONS AND POTENTIAL SIDE EFFECTS EXPLAINED. PT VERBALIZED UNDERSTANDING. SAFETY MAINTAINED. WILL MONITOR.
[2018-12-04 21:27] VITALS: BP_SYST 126
--- NOTE | 2018-12-04 22:20 | NUR ---
DISCHARGE PT DISCHARGED TO CARE OF CARLOS, FRIEND. VSS, NO S/S OF ACUTE DISTRESS, BREATHING IS UNLABORED TO ROOM AIR. DISCHARGE INSTRUCTIONS EXPLAINED, PT VERBALIZED UNDERSTANDING. SAFETY MAINTAINED.
[2018-12-05] MEDS ORDERED: MULTIVITS,CA,MINERALS/IRON/FA 1 TABLET PO SCH (09:00)
== END 2018-12-04 22:20 | disposition home or self-care (01) ==
LOC: SED 21:06 → INTOOBSV 22:37 → STU 22:37
PROVIDERS: ADMIT Internal Medicine; ATTEND Internal Medicine
DX: E87.6 Hypokalemia (principal); M79.7 Fibromyalgia; F32.9 Major depressive disorder, single episode, unspecified; F41.9 Anxiety disorder, unspecified; G89.4 Chronic pain syndrome; E66.9 Obesity, unspecified; J45.909 Unspecified asthma, uncomplicated; E03.9 Hypothyroidism, unspecified; E11.65 Type 2 diabetes mellitus with hyperglycemia; N39.0 Urinary tract infection, site not specified; D64.9 Anemia, unspecified; Z90.710 Acquired absence of both cervix and uterus; E83.42 Hypomagnesemia; M11.20 Other chondrocalcinosis, unspecified site; E26.89 Other hyperaldosteronism; R06.02 Shortness of breath
CPT/HCPCS: 36415 ×3; 80048 ×2; 80053; 81003; 83540; 83550; 83735 ×3; 84100; 85025 ×2; 87081; 93005; 94640 ×2; 96365; 96366 ×3; 96367 ×2; 96375 ×3; 96376 ×2; 99285; G0378 ×3; J1200 ×3; J1756; J2270 ×4; J2405 ×2; J3475 ×3; J3480; J7050 ×2; J7060; J7620 ×2

== ENCOUNTER 2018-12-08 18:12 | Emergency (ER) | payer OTHER ==
[~2018-12-08] VITALS: Ht 162.6 cm; Wt 104.3 kg
[~2018-12-08 18:12] MED LIST changes: -CIPR-211 PO
[2018-12-08 18:41] VITALS: BP_SYST 118
[2018-12-08 19:37] LABS: HEMOGLOBIN 12.7 g/dL (12.0-16.0); RED BLOOD CELL COUNT(AUTO) 4.77 MIL/uL (4.2-6.2); WHITE BLOOD COUNT (AUTO) 14.7 K/uL (4.8-10.8)
[2018-12-08 19:38] LABS: EOSINOPHILS % (AUTO) 1.5 % (0.0-4.0); HEMATOCRIT 39.2 % (36-48); LYMPHOCYTES # (AUTO) 3.3 K/uL (1.0-5.5); LYMPHOCYTES % (AUTO) 22.3 % (20.5-51.5); MEAN CORPUSCULAR HEMOGLOBIN 27 pg (27-31); MEAN CORPUSCULAR HGB CONC 32 % (32-36); MEAN CORPUSCULAR VOLUME 82 fL (79.0-98.0); MONOCYTES % (AUTO) 5.7 % (1.7-9.3); NEUTROPHILS # (AUTO) 10.2 K/uL (1.8-7.7); NEUTROPHILS % (AUTO) 69.5 % (40.0-70.0); PLATELET COUNT (AUTO) 469 K/uL (130-430); RED CELL DISTRIBUTION WIDTH 16.5 % (9.0-15.0)
[2018-12-08 19:39] LABS: BASOPHILS # (AUTO) 0.1 K/uL (0.0-0.2); EOSINOPHILS # (AUTO) 0.2 K/uL (0.0-0.4); MONOCYTES # (AUTO) 0.8 K/uL (0.0-1.0)
[2018-12-08 19:54] LABS: CALCIUM 9.3 mg/dL (8.4-11.0); CREATININE 1.07 mg/dL (0.55-1.30); POTASSIUM 4.2 mmol/L (3.5-5.1)
[2018-12-08 19:58] LABS: ALBUMIN 3.9 g/dL (3.4-4.8); TOTAL BILIRUBIN 0.6 mg/dL (0.0-1.0)
[2018-12-08] MEDS ORDERED: MORPHINE 4 MG/ML INJ. SYRINGE IVP ONE ×2 (21:15→22:00)
[2018-12-08] MEDS ORDERED: MAGNESIUM SULFATE 3 GM in D5W 100 ML IV ONE (21:15)
[2018-12-08] MEDS ORDERED: DIPHENHYDRAMINE INJ 50 MG/ML VIAL IVP ONE ×2 (21:30→22:00)
[2018-12-08] MEDS ORDERED: MAGNESIUM SULFATE 1 GM/2 ML VIAL ONE (21:40)
[2018-12-08] MEDS ORDERED: LORazepam 2 MG/ML VIAL (FOR ER USE) IVP ONE (22:15)
[2018-12-08 23:30] VITALS: BP_SYST 118
== END 2018-12-08 23:33 | disposition home or self-care (01) ==
LOC: SED 18:12
DX: E83.42 Hypomagnesemia (principal); M79.7 Fibromyalgia; F41.9 Anxiety disorder, unspecified; I10 Essential (primary) hypertension; Z88.0 Allergy status to penicillin; Z91.018 Allergy to other foods; Z79.899 Other long term (current) drug therapy
CPT/HCPCS: 36415; 80053; 83735; 85025; 96374; 96375; 96376; 99283; J1200; J2060; J2270; J3475; J7030; J7060

== ENCOUNTER 2018-12-10 14:34 | Emergency (ER) | payer OTHER ==
[~2018-12-10] VITALS: Ht 162.6 cm; Wt 49.0 kg
[2018-12-10] MEDS ORDERED: NACL 0.9% 1,000 ML IV ONE ×2 (14:40→18:30)
[2018-12-10] MEDS ORDERED: KETOROLAC TROMETHAMINE 60 MG/2 ML VIAL IM ONE ×2 (14:45→17:09)
[2018-12-10 14:48] VITALS: BP_SYST 114
[2018-12-10 15:14] LABS: HEMATOCRIT 40.5 % (36-48); HEMOGLOBIN 13.2 g/dL (12.0-16.0); MEAN CORPUSCULAR HEMOGLOBIN 27 pg (27-31); MEAN CORPUSCULAR HGB CONC 33 % (32-36); MEAN CORPUSCULAR VOLUME 83 fL (79.0-98.0); PLATELET COUNT (AUTO) 465 K/uL (130-430); RED BLOOD CELL COUNT(AUTO) 4.89 MIL/uL (4.2-6.2); RED CELL DISTRIBUTION WIDTH 16.9 % (9.0-15.0); WHITE BLOOD COUNT (AUTO) 14.1 K/uL (4.8-10.8)
[2018-12-10 15:15] LABS: BASOPHILS # (AUTO) 0.2 K/uL (0.0-0.2); BASOPHILS % (AUTO) 1.3 % (0.0-2.0); EOSINOPHILS # (AUTO) 0.2 K/uL (0.0-0.4); EOSINOPHILS % (AUTO) 1.3 % (0.0-4.0); LYMPHOCYTES # (AUTO) 3.1 K/uL (1.0-5.5); LYMPHOCYTES % (AUTO) 22.3 % (20.5-51.5); MONOCYTES # (AUTO) 0.6 K/uL (0.0-1.0); MONOCYTES % (AUTO) 4.4 % (1.7-9.3); NEUTROPHILS % (AUTO) 70.7 % (40.0-70.0)
[2018-12-10 15:21] LABS: CALCIUM 9.7 mg/dL (8.4-11.0); CREATININE 0.94 mg/dL (0.55-1.30); POTASSIUM 3.1 mmol/L (3.5-5.1)
[2018-12-10 15:25] LABS: ALBUMIN 4.1 g/dL (3.4-4.8); TOTAL BILIRUBIN 0.6 mg/dL (0.0-1.0)
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
--- NOTE | 2018-12-10 15:47 | NUR ---
Pt stated that she is in pain and wants medication. I informed pt that Toradol is ordered and pt stated "I want morphine, that other stuff doesn't work". Pts brother is bedside and asked pt if you really need all that strong stuff. Pt then stated for me to call Dr. Mota her primary physician to get narcotics, pt stated the stronger meds that work.
--- NOTE | 2018-12-10 16:01 | NUR ---
Pt was observed ambulating on her own without any assistance to restroom. Pt was able to get off and on gurney without any assistance. There was no gait disturbance observed.
[2018-12-10] MEDS ORDERED: POTASSIUM CHLORIDE 20 MEQ/PKT PACKET PO ONE (16:15)
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
[2018-12-10] MEDS ORDERED: KETOROLAC TROMETHAMINE 15 MG VIAL ONE (17:06)
[2018-12-10] MEDS ORDERED: MAGNESIUM SULFATE 3 GM in D5W 100 ML IV ONE (18:30)
[2018-12-10] MEDS ORDERED: MAGNESIUM SULFATE 1 GM/2 ML VIAL ONE (18:54)
--- NOTE | 2018-12-10 18:55 | NUR ---
verified Mg 3g with ABHILASH Avalos
--- NOTE | 2018-12-10 19:19 | NUR ---
Pt AAOx4, c/o H/A and pain to bilat eyes. Red michelle noted beneath right eye, swelling and redness generalized to right eye. Pt c/o double vision. 22 GA to right chest wall with Magnesium Sulfate 3 gm infusing at 55 mL/hr per IV pump without difficulty. VSS. Visual Acuity performed, informed oncoming MD, no new orders.
--- NOTE | 2018-12-10 19:19 | NUR ---
Pt endorsed to night RN using SBAR
--- NOTE | 2018-12-10 20:00 | NUR ---
Rate on IV pump at 75 ml/hr. Pt states "I usually adjust it to that rate without any problems." Pt instructed to not adjust pump rate again. Rate readjusted to 55 mL/hr. VSS. NAD.
[2018-12-10 20:58] VITALS: BP_SYST 122
--- NOTE | 2018-12-10 20:58 | NUR ---
Patient given written and verbal discharge instructions and verbalizes understanding. ER MD discussed with patient the results and treatment provided. Patient in stable condition. ID arm band removed. IV catheter removed intact and dressing applied, no active bleeding. No Rx given. Patient educated on pain management and to follow up with PMD. Flacc pain Scale 4/10. Opportunity for questions provided and answered. Medication side effect fact sheet provided. Pt leaves ER AAOx4, coherent speech, with steady gait, VSS.
== END 2018-12-10 20:58 | disposition home or self-care (01) ==
LOC: SED 14:34
DX: S80.02XA Contusion of left knee, initial encounter (principal); S10.91XA Abrasion of unspecified part of neck, initial encounter; S00.81XA Abrasion of other part of head, initial encounter; R10.11 Right upper quadrant pain; I10 Essential (primary) hypertension; M79.7 Fibromyalgia; F41.9 Anxiety disorder, unspecified; Z88.0 Allergy status to penicillin; Z91.018 Allergy to other foods; Z79.899 Other long term (current) drug therapy; Y04.0XXA Assault by unarmed brawl or fight, initial encounter; Y93.89 Activity, other specified; Y92.89 Other specified places as the place of occurrence of the external cause; Y99.8 Other external cause status
CPT/HCPCS: 36415; 73564; 74021; 80053; 83690; 83735; 85025; 96365; 96366; 96372; 99284; J1885; J3475; J7030

== ENCOUNTER 2018-12-15 19:39 | Emergency (ER) | payer OTHER ==
[~2018-12-15] VITALS: Ht 162.6 cm; Wt 111.1 kg
[2018-12-15 20:20] VITALS: BP_SYST 123
[2018-12-15 21:19] LABS: BASOPHILS # (AUTO) 0.2 K/uL (0.0-0.2); BASOPHILS % (AUTO) 1.3 % (0.0-2.0); EOSINOPHILS # (AUTO) 0.2 K/uL (0.0-0.4); EOSINOPHILS % (AUTO) 1.8 % (0.0-4.0); HEMATOCRIT 39.3 % (36-48); HEMOGLOBIN 12.9 g/dL (12.0-16.0); LYMPHOCYTES # (AUTO) 3.9 K/uL (1.0-5.5); LYMPHOCYTES % (AUTO) 28.2 % (20.5-51.5); MEAN CORPUSCULAR HEMOGLOBIN 28 pg (27-31); MEAN CORPUSCULAR HGB CONC 33 % (32-36); MEAN CORPUSCULAR VOLUME 84 fL (79.0-98.0); MONOCYTES # (AUTO) 0.9 K/uL (0.0-1.0); MONOCYTES % (AUTO) 6.3 % (1.7-9.3); NEUTROPHILS # (AUTO) 8.7 K/uL (1.8-7.7); NEUTROPHILS % (AUTO) 62.4 % (40.0-70.0); PLATELET COUNT (AUTO) 399 K/uL (130-430); RED CELL DISTRIBUTION WIDTH 17.3 % (9.0-15.0); WHITE BLOOD COUNT (AUTO) 13.9 K/uL (4.8-10.8)
[2018-12-15 21:34] LABS: CALCIUM 9.6 mg/dL (8.4-11.0); CREATININE 1.16 mg/dL (0.55-1.30)
[2018-12-15 21:38] LABS: ALBUMIN 3.7 g/dL (3.4-4.8); TOTAL BILIRUBIN 0.4 mg/dL (0.0-1.0)
[2018-12-15] MEDS ORDERED: NACL 0.9% 1,000 ML IV ONE (23:42)
[2018-12-15] MEDS ORDERED: MAGNESIUM SULFATE 4 GM in D5W 250 ML IV ONE (23:45)
[2018-12-15] MEDS ORDERED: MORPHINE 4 MG/ML INJ. SYRINGE IVP ONE (23:45)
[2018-12-15] MEDS ORDERED: ONDANSETRON HCL 4 MG/2 ML VIAL IVP ONE (23:45)
[2018-12-15] MEDS ORDERED: DIPHENHYDRAMINE INJ 50 MG/ML VIAL IVP ONE (23:45)
[2018-12-16] MEDS ORDERED: MAGNESIUM SULFATE 1 GM/2 ML VIAL ONE (01:28)
[2018-12-16] MEDS ORDERED: MORPHINE 4 MG/ML INJ. SYRINGE IVP ONE ×2 (02:45→04:45)
[2018-12-16] MEDS ORDERED: DIPHENHYDRAMINE INJ 50 MG/ML VIAL IVP ONE (02:45)
[2018-12-16] MEDS ORDERED: DIPHENHYDRAMINE INJ 50 MG/ML VIAL IM ONE (04:45)
[2018-12-16 05:45] VITALS: BP_SYST 119
== END 2018-12-16 05:47 | disposition home or self-care (01) ==
LOC: SED 19:39
DX: S09.90XA Unspecified injury of head, initial encounter (principal); H53.2 Diplopia; M79.605 Pain in left leg; M79.604 Pain in right leg; I10 Essential (primary) hypertension; F41.9 Anxiety disorder, unspecified; M79.7 Fibromyalgia; R42 Dizziness and giddiness; Z90.710 Acquired absence of both cervix and uterus; Z88.0 Allergy status to penicillin; Z91.018 Allergy to other foods; Z79.899 Other long term (current) drug therapy; Y04.0XXA Assault by unarmed brawl or fight, initial encounter; Y93.89 Activity, other specified; Y92.89 Other specified places as the place of occurrence of the external cause; Y99.8 Other external cause status
CPT/HCPCS: 36415; 70450; 80053; 83735; 85025; 96361; 96365; 96366; 96375; 96376; 99284; J1200; J2270; J2405; J3475; J7030

== ENCOUNTER 2018-12-17 13:52 | Outpatient (CLI) | payer OTHER | END 2018-12-17 21:20 | disposition home or self-care (01) | LOC: SRD 13:52 | PROVIDERS: ATTEND Internal Medicine | DX: M21.922 Unspecified acquired deformity of left upper arm (principal) | CPT/HCPCS: 71100; 73030 ==

== ENCOUNTER 2018-12-19 17:43 | Emergency (ER) | payer OTHER ==
[~2018-12-19] VITALS: Ht 162.6 cm; Wt 108.9 kg
[2018-12-19] MEDS ORDERED: MAGNESIUM SULFATE 4 GM in D5W 250 ML IV ONE (18:00)
[2018-12-19 18:16] VITALS: BP_SYST 132
[2018-12-19 18:25] LABS: CALCIUM 9.3 mg/dL (8.4-11.0); CREATININE 0.94 mg/dL (0.55-1.30); POTASSIUM 3.9 mmol/L (3.5-5.1)
[2018-12-19 18:26] LABS: BASOPHILS # (AUTO) 0.1 K/uL (0.0-0.2); BASOPHILS % (AUTO) 0.9 % (0.0-2.0); EOSINOPHILS # (AUTO) 0.3 K/uL (0.0-0.4); EOSINOPHILS % (AUTO) 1.6 % (0.0-4.0); HEMATOCRIT 38.7 % (36-48); HEMOGLOBIN 12.3 g/dL (12.0-16.0); LYMPHOCYTES # (AUTO) 4.3 K/uL (1.0-5.5); LYMPHOCYTES % (AUTO) 26.7 % (20.5-51.5); MEAN CORPUSCULAR HEMOGLOBIN 27 pg (27-31); MEAN CORPUSCULAR HGB CONC 32 % (32-36); MEAN CORPUSCULAR VOLUME 84 fL (79.0-98.0); MONOCYTES # (AUTO) 0.6 K/uL (0.0-1.0); MONOCYTES % (AUTO) 3.8 % (1.7-9.3); NEUTROPHILS # (AUTO) 10.7 K/uL (1.8-7.7); PLATELET COUNT (AUTO) 394 K/uL (130-430); RED BLOOD CELL COUNT(AUTO) 4.63 MIL/uL (4.2-6.2); RED CELL DISTRIBUTION WIDTH 17.3 % (9.0-15.0)
[2018-12-19 18:36] LABS: ALBUMIN 3.5 g/dL (3.4-4.8); TOTAL BILIRUBIN 0.3 mg/dL (0.0-1.0)
[2018-12-19] MEDS ORDERED: MAGNESIUM SULFATE 1 GM/2 ML VIAL ONE (18:37)
[2018-12-19] MEDS ORDERED: LORazepam 2 MG/ML VIAL (FOR ER USE) IVP ONE (18:45)
[2018-12-19] MEDS ORDERED: DIPHENHYDRAMINE INJ 50 MG/ML VIAL IVP ONE ×2 (18:45→20:15)
[2018-12-19] MEDS ORDERED: KETOROLAC TROMETHAMINE 30 MG VIAL IVP ONE (18:45)
[2018-12-19] MEDS ORDERED: MORPHINE 4 MG/ML INJ. SYRINGE IVP ONE (20:15)
[2018-12-19 22:30] VITALS: BP_SYST 134
== END 2018-12-19 22:30 | disposition home or self-care (01) ==
LOC: SED 17:43
DX: E83.42 Hypomagnesemia (principal); M79.601 Pain in right arm; M79.604 Pain in right leg; I10 Essential (primary) hypertension; F41.9 Anxiety disorder, unspecified; M79.7 Fibromyalgia; Z88.0 Allergy status to penicillin; Z91.018 Allergy to other foods; Z79.899 Other long term (current) drug therapy
CPT/HCPCS: 36415; 80053; 83735; 85025; 96365; 96366; 96375; 96376; 99283; J1200; J1885; J2060; J2270; J3475

== ENCOUNTER 2018-12-28 16:27 | Emergency (ER) | payer OTHER ==
[~2018-12-28] VITALS: Ht 162.6 cm; Wt 108.9 kg
[2018-12-28 16:49] VITALS: BP_SYST 96
[2018-12-28 16:56] LABS: BASOPHILS # (AUTO) 0.2 K/uL (0.0-0.2); BASOPHILS % (AUTO) 1.2 % (0.0-2.0); EOSINOPHILS # (AUTO) 0.2 K/uL (0.0-0.4); EOSINOPHILS % (AUTO) 1.1 % (0.0-4.0); HEMATOCRIT 41.2 % (36-48); HEMOGLOBIN 13.1 g/dL (12.0-16.0); LYMPHOCYTES # (AUTO) 3.2 K/uL (1.0-5.5); LYMPHOCYTES % (AUTO) 19.4 % (20.5-51.5); MEAN CORPUSCULAR HEMOGLOBIN 27 pg (27-31); MEAN CORPUSCULAR HGB CONC 32 % (32-36); MEAN CORPUSCULAR VOLUME 84 fL (79.0-98.0); MONOCYTES # (AUTO) 0.8 K/uL (0.0-1.0); MONOCYTES % (AUTO) 4.6 % (1.7-9.3); NEUTROPHILS # (AUTO) 12.3 K/uL (1.8-7.7); NEUTROPHILS % (AUTO) 73.7 % (40.0-70.0); PLATELET COUNT (AUTO) 460 K/uL (130-430); RED BLOOD CELL COUNT(AUTO) 4.93 MIL/uL (4.2-6.2); RED CELL DISTRIBUTION WIDTH 17.4 % (9.0-15.0); WHITE BLOOD COUNT (AUTO) 16.6 K/uL (4.8-10.8)
[2018-12-28 17:04] LABS: CALCIUM 9.6 mg/dL (8.4-11.0); CREATININE 1.01 mg/dL (0.55-1.30); POTASSIUM 4.2 mmol/L (3.5-5.1)
[2018-12-28 17:08] LABS: INR 0.9 (0.8-1.2); PROTHROMBIN TIME 9.3 SECS (9.5-12.5)
[2018-12-28 17:09] LABS: ALBUMIN 3.8 g/dL (3.4-4.8); PHOSPHORUS 3.4 mg/dL (2.7-4.5); TOTAL BILIRUBIN 0.5 mg/dL (0.0-1.0)
--- NOTE | 2018-12-28 18:10 | NUR ---
Patient to ER bed 2 to gown for evaluation. Side rails up.Report given to Roberto Carlos HUNG.
--- NOTE | 2018-12-28 18:12 | NUR ---
Patient is awake, alert, and oriented x4. She is complaining of diarrhea and leg cramping.
--- NOTE | 2018-12-28 18:13 | NUR ---
ER Dr. FLETCHER at bedside examining patient.
[2018-12-28] MEDS ORDERED: DIPHENHYDRAMINE INJ 50 MG/ML VIAL IVP ONE ×3 (18:15→22:15)
[2018-12-28] MEDS ORDERED: MORPHINE 4 MG/ML INJ. SYRINGE IVP ONE ×2 (18:15→19:30)
[2018-12-28] MEDS ORDERED: ONDANSETRON HCL 4 MG/2 ML VIAL IVP ONE ×2 (18:15→19:30)
[2018-12-28] MEDS ORDERED: MAGNESIUM SULFATE 50 ML IV ONE ×2 (18:15→18:45)
[2018-12-28] MEDS ORDERED: NACL 0.9% 1,000 ML IV ONE (19:30)
--- NOTE | 2018-12-28 19:55 | NUR ---
Medications were given, pt tolerated well. No adverse reaction, will continue to monitor.
[2018-12-28 20:22] LABS: BILIRUBIN,URINE NEGATIVE (NEGATIVE); BLOOD, URINE NEGATIVE (NEGATIVE); CLARITY/URINE CLEAR (CLEAR); COLOR,URINE YELLOW (YELLOW); GLUCOSE,URINE NEGATIVE (NEGATIVE); KETONES,URINE NEGATIVE (NEGATIVE); LEUKOCYTE ESTERASE ,URINE NEGATIVE (NEGATIVE); NITRITE, URINE NEGATIVE (NEGATIVE); PROTEIN URINE NEGATIVE (NEGATIVE); UROBILINOGEN,URINE 0.2 (0.2-1.0)
--- NOTE | 2018-12-28 21:01 | NUR ---
ER Dr. Stephens at bedside examining patient.
[2018-12-28] MEDS ORDERED: KETOROLAC TROMETHAMINE 30 MG VIAL IVP ONE (22:15)
[2018-12-28] MEDS ORDERED: fentaNYL CITRATE/PF 100 MCG/2 ML AMP IVP ONE (22:15)
--- NOTE | 2018-12-28 22:30 | NUR ---
Medications were given, pt tolerated well. No adverse reaction, will continue to monitor.
[2018-12-28 23:03] VITALS: BP_SYST 132
--- NOTE | 2018-12-28 23:03 | NUR ---
Patient given written and verbal discharge instructions and verbalizes understanding. ER MD discussed with patient the results and treatment provided. Patient in stable condition. ID arm band removed. No Rx given. Patient educated on pain management and to follow up with PMD. Pain Scale 0. Opportunity for questions provided and answered. Medication side effect fact sheet provided.
== END 2018-12-28 23:03 | disposition home or self-care (01) ==
LOC: SED 16:27
DX: E83.42 Hypomagnesemia (principal); I10 Essential (primary) hypertension; F41.9 Anxiety disorder, unspecified; M79.7 Fibromyalgia; Z88.0 Allergy status to penicillin; Z91.018 Allergy to other foods; Z79.899 Other long term (current) drug therapy
CPT/HCPCS: 36415; 80053; 81003; 83690; 83735; 84100; 85025; 85610; 85730; 96365; 96366; 96375; 96376; 99284; J1200; J1885; J2270; J2405; J3010; J3475; J7030

== ENCOUNTER 2019-01-01 23:21 | Emergency (ER) | payer OTHER ==
[~2019-01-01] VITALS: Ht 162.6 cm; Wt 108.9 kg
[2019-01-01 23:25] VITALS: BP_SYST 129
[2019-01-01] MEDS ORDERED: MAGNESIUM SULFATE 4 GM in D5W 250 ML IV ONE (23:45)
[2019-01-01 23:57] LABS: BASOPHILS # (AUTO) 0.2 K/uL (0.0-0.2); BASOPHILS % (AUTO) 1.3 % (0.0-2.0); EOSINOPHILS # (AUTO) 0.2 K/uL (0.0-0.4); EOSINOPHILS % (AUTO) 1.3 % (0.0-4.0); HEMATOCRIT 40.2 % (36-48); HEMOGLOBIN 12.9 g/dL (12.0-16.0); LYMPHOCYTES % (AUTO) 24.2 % (20.5-51.5); MEAN CORPUSCULAR HEMOGLOBIN 27 pg (27-31); MEAN CORPUSCULAR HGB CONC 32 % (32-36); MEAN CORPUSCULAR VOLUME 82 fL (79.0-98.0); MONOCYTES # (AUTO) 0.9 K/uL (0.0-1.0); MONOCYTES % (AUTO) 5.5 % (1.7-9.3); NEUTROPHILS # (AUTO) 11.3 K/uL (1.8-7.7); NEUTROPHILS % (AUTO) 67.7 % (40.0-70.0); PLATELET COUNT (AUTO) 452 K/uL (130-430); RED BLOOD CELL COUNT(AUTO) 4.88 MIL/uL (4.2-6.2); RED CELL DISTRIBUTION WIDTH 17.7 % (9.0-15.0); WHITE BLOOD COUNT (AUTO) 16.7 K/uL (4.8-10.8)
[2019-01-02 00:11] LABS: CALCIUM 9.4 mg/dL (8.4-11.0); POTASSIUM 3.4 mmol/L (3.5-5.1)
[2019-01-02] MEDS ORDERED: MAGNESIUM SULFATE 1 GM/2 ML VIAL ONE (00:15)
[2019-01-02 00:17] LABS: ALBUMIN 3.9 g/dL (3.4-4.8); TOTAL BILIRUBIN 0.4 mg/dL (0.0-1.0)
[2019-01-02] MEDS ORDERED: DIPHENHYDRAMINE INJ 50 MG/ML VIAL IVP ONE (00:45)
[2019-01-02] MEDS ORDERED: KETOROLAC TROMETHAMINE 30 MG VIAL IVP ONE (00:45)
[2019-01-02 01:06] LABS: BILIRUBIN,URINE NEGATIVE (NEGATIVE); BLOOD, URINE NEGATIVE (NEGATIVE); CLARITY/URINE CLEAR (CLEAR); COLOR,URINE YELLOW (YELLOW); GLUCOSE,URINE NEGATIVE (NEGATIVE); KETONES,URINE NEGATIVE (NEGATIVE); LEUKOCYTE ESTERASE ,URINE NEGATIVE (NEGATIVE); NITRITE, URINE NEGATIVE (NEGATIVE); PH,URINE 6.5 (5.0-8.0); PROTEIN URINE NEGATIVE (NEGATIVE); UROBILINOGEN,URINE 0.2 (0.2-1.0)
[2019-01-02 03:00] VITALS: BP_SYST 129
== END 2019-01-02 02:20 | disposition home or self-care (01) ==
LOC: SED 23:21
DX: E83.42 Hypomagnesemia (principal); R10.9 Unspecified abdominal pain; I10 Essential (primary) hypertension; F41.9 Anxiety disorder, unspecified; M79.7 Fibromyalgia; Z90.710 Acquired absence of both cervix and uterus; Z88.0 Allergy status to penicillin; Z91.018 Allergy to other foods; Z79.899 Other long term (current) drug therapy
CPT/HCPCS: 36415; 80053; 81003; 83735; 85025; 96365; 96366; 96375; 99283; J1200; J1885; J3475

== ENCOUNTER 2019-01-03 14:32 | Emergency (ER) | payer OTHER ==
[~2019-01-03] VITALS: Ht 162.6 cm; Wt 108.9 kg
[2019-01-03 14:42] VITALS: BP_SYST 126
[2019-01-03] MEDS ORDERED: LORazepam 2 MG/ML VIAL (FOR ER USE) IVP ONE (15:00)
[2019-01-03 15:20] LABS: BASOPHILS # (AUTO) 0.1 K/uL (0.0-0.2); EOSINOPHILS # (AUTO) 0.1 K/uL (0.0-0.4); EOSINOPHILS % (AUTO) 0.8 % (0.0-4.0); HEMOGLOBIN 12.5 g/dL (12.0-16.0); LYMPHOCYTES % (AUTO) 20.6 % (20.5-51.5); MEAN CORPUSCULAR HEMOGLOBIN 27 pg (27-31); MEAN CORPUSCULAR HGB CONC 32 % (32-36); MEAN CORPUSCULAR VOLUME 83 fL (79.0-98.0); MONOCYTES # (AUTO) 0.6 K/uL (0.0-1.0); MONOCYTES % (AUTO) 4.2 % (1.7-9.3); NEUTROPHILS # (AUTO) 10.7 K/uL (1.8-7.7); NEUTROPHILS % (AUTO) 73.4 % (40.0-70.0); PLATELET COUNT (AUTO) 417 K/uL (130-430); RED BLOOD CELL COUNT(AUTO) 4.73 MIL/uL (4.2-6.2); RED CELL DISTRIBUTION WIDTH 17.5 % (9.0-15.0); WHITE BLOOD COUNT (AUTO) 14.5 K/uL (4.8-10.8)
[2019-01-03] MEDS ORDERED: DIPHENHYDRAMINE INJ 50 MG/ML VIAL IVP ONE (15:30)
[2019-01-03 15:33] LABS: CALCIUM 9.8 mg/dL (8.4-11.0); CREATININE 0.95 mg/dL (0.55-1.30); POTASSIUM 3.7 mmol/L (3.5-5.1)
[2019-01-03] MEDS ORDERED: DIPHENHYDRAMINE INJ 50 MG/ML VIAL ONE (15:33)
[2019-01-03 15:37] LABS: ALBUMIN 3.9 g/dL (3.4-4.8); TOTAL BILIRUBIN 0.8 mg/dL (0.0-1.0)
[2019-01-03] MEDS ORDERED: MAGNESIUM SULFATE 1 GM in NS 100 ML IV ONE (16:15)
[2019-01-03] MEDS ORDERED: MAGNESIUM SULFATE 1 GM/2 ML VIAL ONE (16:23)
[2019-01-03 17:14] VITALS: BP_SYST 122
== END 2019-01-03 17:14 | disposition home or self-care (01) ==
LOC: SED 14:32
DX: F41.9 Anxiety disorder, unspecified (principal); N15.8 Other specified renal tubulo-interstitial diseases
CPT/HCPCS: 36415; 80053; 83735; 85025; 96365; 96375; 99284; J1200; J2060; J3475

== ENCOUNTER 2019-01-22 21:59 | Emergency (ER) | payer OTHER ==
[~2019-01-22] VITALS: Ht 162.6 cm; Wt 108.9 kg
[2019-01-22 21:59] VITALS: BP_SYST 127
[2019-01-22] MEDS ORDERED: NACL 0.9% 1,000 ML IV ONE (22:15)
[2019-01-22] MEDS ORDERED: ONDANSETRON HCL 4 MG/2 ML VIAL IVP ONE (22:15)
[2019-01-22] MEDS ORDERED: MORPHINE 4 MG/ML INJ. SYRINGE IVP ONE ×2 (22:15→23:30)
[2019-01-22] MEDS ORDERED: MAGNESIUM SULFATE 50 ML IV ONE ×2 (22:15→23:00)
[2019-01-22 22:26] LABS: BASOPHILS # (AUTO) 0.2 K/uL (0.0-0.2); BASOPHILS % (AUTO) 1.6 % (0.0-2.0); EOSINOPHILS # (AUTO) 0.2 K/uL (0.0-0.4); EOSINOPHILS % (AUTO) 1.1 % (0.0-4.0); HEMATOCRIT 40.3 % (36-48); LYMPHOCYTES # (AUTO) 3.1 K/uL (1.0-5.5); LYMPHOCYTES % (AUTO) 21.3 % (20.5-51.5); MEAN CORPUSCULAR HEMOGLOBIN 27 pg (27-31); MEAN CORPUSCULAR HGB CONC 32 % (32-36); MEAN CORPUSCULAR VOLUME 83 fL (79.0-98.0); MONOCYTES # (AUTO) 0.7 K/uL (0.0-1.0); MONOCYTES % (AUTO) 5.1 % (1.7-9.3); NEUTROPHILS # (AUTO) 10.2 K/uL (1.8-7.7); NEUTROPHILS % (AUTO) 70.9 % (40.0-70.0); PLATELET COUNT (AUTO) 464 K/uL (130-430); RED BLOOD CELL COUNT(AUTO) 4.86 MIL/uL (4.2-6.2); RED CELL DISTRIBUTION WIDTH 18.2 % (9.0-15.0); WHITE BLOOD COUNT (AUTO) 14.4 K/uL (4.8-10.8)
[2019-01-22 22:34] LABS: CALCIUM 9.3 mg/dL (8.4-11.0); CREATININE 1.09 mg/dL (0.55-1.30); POTASSIUM 3.6 mmol/L (3.5-5.1)
[2019-01-22 22:39] LABS: ALBUMIN 3.7 g/dL (3.4-4.8); TOTAL BILIRUBIN 0.3 mg/dL (0.0-1.0)
[2019-01-22] MEDS ORDERED: DIPHENHYDRAMINE INJ 50 MG/ML VIAL IVP ONE (22:45)
[2019-01-22] MEDS ORDERED: PROMETHAZINE INJ.Non-Formulary 25 MG/ML AMP IVP ONE (23:30)
[2019-01-23 00:24] VITALS: BP_SYST 133
== END 2019-01-23 00:24 | disposition home or self-care (01) ==
LOC: SED 21:59
DX: R10.13 Epigastric pain (principal); R11.2 Nausea with vomiting, unspecified; I10 Essential (primary) hypertension; F41.9 Anxiety disorder, unspecified; M79.7 Fibromyalgia; Z90.710 Acquired absence of both cervix and uterus; Z98.84 Bariatric surgery status; Z88.0 Allergy status to penicillin; Z91.018 Allergy to other foods; Z79.899 Other long term (current) drug therapy
CPT/HCPCS: 36415; 80053; 83690; 83735; 85025; 96365; 96376; 96375; 99283; J1200; J2270; J2405; J2550; J3475; J7030

== ENCOUNTER 2019-01-24 20:29 | Emergency (ER) | payer OTHER ==
[~2019-01-24] VITALS: Ht 162.6 cm; Wt 113.4 kg
[2019-01-24 20:29] VITALS: BP_SYST 98
[2019-01-24] MEDS ORDERED: MORPHINE 4 MG/ML INJ. SYRINGE IVP ONE ×2 (21:00→22:45)
[2019-01-24] MEDS ORDERED: MAGNESIUM SULFATE 50 ML IV ONE ×2 (21:00→23:15)
[2019-01-24] MEDS ORDERED: DIPHENHYDRAMINE INJ 50 MG/ML VIAL IVP ONE ×2 (21:00→22:45)
[2019-01-24 21:04] LABS: BASOPHILS # (AUTO) 0.1 K/uL (0.0-0.2); BASOPHILS % (AUTO) 0.6 % (0.0-2.0); EOSINOPHILS # (AUTO) 0.1 K/uL (0.0-0.4); EOSINOPHILS % (AUTO) 0.7 % (0.0-4.0); HEMATOCRIT 40.5 % (36-48); LYMPHOCYTES # (AUTO) 3.1 K/uL (1.0-5.5); LYMPHOCYTES % (AUTO) 20.4 % (20.5-51.5); MEAN CORPUSCULAR HEMOGLOBIN 27 pg (27-31); MEAN CORPUSCULAR HGB CONC 32 % (32-36); MEAN CORPUSCULAR VOLUME 83 fL (79.0-98.0); MONOCYTES # (AUTO) 0.9 K/uL (0.0-1.0); MONOCYTES % (AUTO) 5.6 % (1.7-9.3); NEUTROPHILS # (AUTO) 11.1 K/uL (1.8-7.7); NEUTROPHILS % (AUTO) 72.7 % (40.0-70.0); PLATELET COUNT (AUTO) 450 K/uL (130-430); RED CELL DISTRIBUTION WIDTH 18.6 % (9.0-15.0); WHITE BLOOD COUNT (AUTO) 15.2 K/uL (4.8-10.8)
[2019-01-24 21:10] LABS: CALCIUM 9.5 mg/dL (8.4-11.0); CREATININE 1.07 mg/dL (0.55-1.30); POTASSIUM 3.8 mmol/L (3.5-5.1)
[2019-01-24] MEDS ORDERED: ONDANSETRON HCL 4 MG/2 ML VIAL IVP ONE ×2 (21:15→22:45)
[2019-01-24 21:16] LABS: ALBUMIN 3.7 g/dL (3.4-4.8); PHOSPHORUS 2.5 mg/dL (2.7-4.5); TOTAL BILIRUBIN 0.3 mg/dL (0.0-1.0)
[2019-01-25 00:09] VITALS: BP_SYST 117
== END 2019-01-25 00:09 | disposition home or self-care (01) ==
LOC: SED 20:29
DX: E83.42 Hypomagnesemia (principal); G89.29 Other chronic pain; M79.10 Myalgia, unspecified site; I10 Essential (primary) hypertension; F41.9 Anxiety disorder, unspecified; Z88.0 Allergy status to penicillin; Z91.018 Allergy to other foods; Z79.899 Other long term (current) drug therapy
CPT/HCPCS: 36415; 80053; 83735; 84100; 85025; 96365; 96366; 96375; 96376; 99283; J1200; J2270; J2405; J3475

== ENCOUNTER 2019-01-26 20:43 | Emergency (ER) | payer OTHER ==
[~2019-01-26] VITALS: Ht 162.6 cm; Wt 113.4 kg
[2019-01-26 20:45] VITALS: BP_SYST 107
[2019-01-26] MEDS ORDERED: NACL 0.9% 1,000 ML IV ONE (21:09)
[2019-01-26] MEDS ORDERED: DIPHENHYDRAMINE INJ 50 MG/ML VIAL IVP ONE (21:15)
[2019-01-26] MEDS ORDERED: MORPHINE 4 MG/ML INJ. SYRINGE IVP ONE (21:15)
[2019-01-26] MEDS ORDERED: PANTOPRAZOLE SODIUM 40 MG/VIAL (PROTONIX) IVP ONE (21:15)
[2019-01-26] MEDS ORDERED: PROCHLORPERAZINE EDISYLATE 10 MG/2 ML VIAL IVP ONE (21:15)
[2019-01-26 21:22] LABS: BASOPHILS # (AUTO) 0.1 K/uL (0.0-0.2); BASOPHILS % (AUTO) 0.7 % (0.0-2.0); EOSINOPHILS # (AUTO) 0.2 K/uL (0.0-0.4); EOSINOPHILS % (AUTO) 1.4 % (0.0-4.0); HEMATOCRIT 39.9 % (36-48); LYMPHOCYTES # (AUTO) 3.7 K/uL (1.0-5.5); LYMPHOCYTES % (AUTO) 26.8 % (20.5-51.5); MEAN CORPUSCULAR HEMOGLOBIN 27 pg (27-31); MEAN CORPUSCULAR HGB CONC 33 % (32-36); MEAN CORPUSCULAR VOLUME 82 fL (79.0-98.0); MONOCYTES # (AUTO) 0.5 K/uL (0.0-1.0); NEUTROPHILS # (AUTO) 9.2 K/uL (1.8-7.7); NEUTROPHILS % (AUTO) 67.1 % (40.0-70.0); PLATELET COUNT (AUTO) 421 K/uL (130-430); RED BLOOD CELL COUNT(AUTO) 4.85 MIL/uL (4.2-6.2); RED CELL DISTRIBUTION WIDTH 18.6 % (9.0-15.0); WHITE BLOOD COUNT (AUTO) 13.7 K/uL (4.8-10.8)
[2019-01-26 21:36] LABS: CALCIUM 9.7 mg/dL (8.4-11.0); CREATININE 1.03 mg/dL (0.55-1.30); POTASSIUM 3.2 mmol/L (3.5-5.1)
[2019-01-26 21:40] LABS: ALBUMIN 3.8 g/dL (3.4-4.8); TOTAL BILIRUBIN 0.4 mg/dL (0.0-1.0)
[2019-01-26] MEDS ORDERED: MAGNESIUM SULFATE 4 GM in D5W 250 ML IV ONE (22:15)
[2019-01-26] MEDS ORDERED: MAGNESIUM SULFATE 100 ML IV ONE (22:40)
[2019-01-26] MEDS ORDERED: DICYCLOMINE HCL 20 MG/2 ML AMP IM ONE (23:15)
[2019-01-27 00:11] LABS: BILIRUBIN,URINE NEGATIVE (NEGATIVE); BLOOD, URINE NEGATIVE (NEGATIVE); CLARITY/URINE CLEAR (CLEAR); COLOR,URINE YELLOW (YELLOW); GLUCOSE,URINE NEGATIVE (NEGATIVE); KETONES,URINE NEGATIVE (NEGATIVE); LEUKOCYTE ESTERASE ,URINE NEGATIVE (NEGATIVE); NITRITE, URINE NEGATIVE (NEGATIVE); PH,URINE 6.5 (5.0-8.0); PROTEIN URINE NEGATIVE (NEGATIVE); UROBILINOGEN,URINE 0.2 (0.2-1.0)
[2019-01-27] MEDS ORDERED: ONDANSETRON 4 MG ODT TAB PO ONE (00:15)
[2019-01-27] MEDS ORDERED: DIPHENHYDRAMINE INJ 50 MG/ML VIAL IVP ONE (00:15)
[2019-01-27] MEDS ORDERED: MORPHINE 4 MG/ML INJ. SYRINGE IVP ONE (00:15)
[2019-01-27 01:11] VITALS: BP_SYST 110
== END 2019-01-27 01:11 | disposition home or self-care (01) ==
LOC: SED 20:43
DX: E83.42 Hypomagnesemia (principal); N15.8 Other specified renal tubulo-interstitial diseases; R11.2 Nausea with vomiting, unspecified; I10 Essential (primary) hypertension; F41.9 Anxiety disorder, unspecified; M79.7 Fibromyalgia; Z88.0 Allergy status to penicillin; Z91.018 Allergy to other foods; Z79.899 Other long term (current) drug therapy
CPT/HCPCS: 36415; 80053; 81003; 83690; 83735; 85025; 96361; 96365; 96366; 96372; 96375; 96376; 99283; C9113; J0500; J0780; J1200 ×2; J2270 ×2; J3475; J7030; Q0162

== ENCOUNTER 2019-02-07 18:01 | Emergency (ER) | payer OTHER ==
[~2019-02-07] VITALS: Ht 162.6 cm; Wt 113.4 kg
[2019-02-07 18:09] VITALS: BP_SYST 121
--- NOTE | 2019-02-07 18:12 | NUR ---
Patient triaged and placed in waiting room. VSS and patient appears in no acute distress at this time. Accompanied by family, awaiting available bed, and MD notified of need for MSE.
--- NOTE | 2019-02-07 18:52 | NUR ---
Patient to ER bed 4 to gown for evaluation. Side rails up.
[2019-02-07 19:09] LABS: BASOPHILS # (AUTO) 0.1 K/uL (0.0-0.2); EOSINOPHILS # (AUTO) 0.2 K/uL (0.0-0.4); EOSINOPHILS % (AUTO) 1.2 % (0.0-4.0); HEMATOCRIT 40.2 % (36-48); HEMOGLOBIN 13.1 g/dL (12.0-16.0); LYMPHOCYTES # (AUTO) 3.3 K/uL (1.0-5.5); LYMPHOCYTES % (AUTO) 21.3 % (20.5-51.5); MEAN CORPUSCULAR HEMOGLOBIN 27 pg (27-31); MEAN CORPUSCULAR HGB CONC 33 % (32-36); MEAN CORPUSCULAR VOLUME 82 fL (79.0-98.0); MONOCYTES # (AUTO) 0.7 K/uL (0.0-1.0); MONOCYTES % (AUTO) 4.4 % (1.7-9.3); NEUTROPHILS # (AUTO) 11.1 K/uL (1.8-7.7); NEUTROPHILS % (AUTO) 72.1 % (40.0-70.0); PLATELET COUNT (AUTO) 388 K/uL (130-430); RED BLOOD CELL COUNT(AUTO) 4.88 MIL/uL (4.2-6.2); RED CELL DISTRIBUTION WIDTH 18.3 % (9.0-15.0); WHITE BLOOD COUNT (AUTO) 15.4 K/uL (4.8-10.8)
--- NOTE | 2019-02-07 19:09 | NUR ---
Pt C/O N/V/D and leg cramps since last night. Denies any other symptoms at this time. Has been seen multiple times for the same chief complaint. IV access to the RT AC and blood has been sent to the lab. Will continue to monitor.
[2019-02-07 19:23] LABS: CALCIUM 9.7 mg/dL (8.4-11.0); CREATININE 0.94 mg/dL (0.55-1.30); POTASSIUM 3.7 mmol/L (3.5-5.1)
[2019-02-07 19:28] LABS: ALBUMIN 3.7 g/dL (3.4-4.8); TOTAL BILIRUBIN 0.5 mg/dL (0.0-1.0)
--- NOTE | 2019-02-07 19:40 | NUR ---
ER Dr. Stephens at bedside examining patient.
[2019-02-07] MEDS ORDERED: BACITRACIN 1 GM OINT TP ONE (19:45)
[2019-02-07] MEDS ORDERED: DIPHENHYDRAMINE INJ 50 MG/ML VIAL IVP ONE ×3 (19:45→22:45)
[2019-02-07] MEDS ORDERED: ONDANSETRON HCL 4 MG/2 ML VIAL IVP ONE (19:45)
[2019-02-07] MEDS ORDERED: MAGNESIUM SULFATE 4 GM in D5W 250 ML IV ONE (19:45)
[2019-02-07] MEDS ORDERED: MORPHINE 4 MG/ML INJ. SYRINGE IVP ONE ×2 (19:45→22:45)
[2019-02-07] MEDS ORDERED: MAGNESIUM SULFATE 1 GM/2 ML VIAL ONE (20:07)
--- NOTE | 2019-02-07 20:30 | NUR ---
Pt is resting in bed, on personal computer. Daughter at bedside, no acute distress noted at this time. Will continue to monitor.
[2019-02-07] MEDS ORDERED: NACL 0.9% 1,000 ML IV ONE (20:55)
[2019-02-07] MEDS ORDERED: KETOROLAC TROMETHAMINE 15 MG VIAL IVP ONE (21:30)
--- NOTE | 2019-02-07 21:30 | NUR ---
Pt started C/O of bilateral leg cramping after medication administration. Dr Stephens has been notified and orders have been recieved.
--- NOTE | 2019-02-07 22:32 | NUR ---
Pt is C/O bilateral leg swelling after Toradol has been given Dr. Stephens notified of situation will continue to monitor.
--- NOTE | 2019-02-07 23:10 | NUR ---
Pt is resting comfortably in bed after medication administration. Will continue to monitor.
--- NOTE | 2019-02-07 23:37 | NUR ---
Patient given written and verbal discharge instructions and verbalizes understanding. ER MD discussed with patient the results and treatment provided. Patient in stable condition. ID arm band removed. IV catheter removed intact and dressing applied, no active bleeding. Patient educated on pain management and to follow up with PMD. Pain Scale 0. Opportunity for questions provided and answered. Medication side effect fact sheet provided.
[2019-02-07 23:38] VITALS: BP_SYST 121
== END 2019-02-07 23:38 | disposition home or self-care (01) ==
LOC: SED 18:01
DX: E83.42 Hypomagnesemia (principal); R11.2 Nausea with vomiting, unspecified; N15.8 Other specified renal tubulo-interstitial diseases; I10 Essential (primary) hypertension; F41.9 Anxiety disorder, unspecified; J44.9 Chronic obstructive pulmonary disease, unspecified; Z88.0 Allergy status to penicillin; Z91.018 Allergy to other foods; Z79.899 Other long term (current) drug therapy
CPT/HCPCS: 36415; 80053; 83735; 85025; 96365; 96366; 96375; 96376; 99283; J1200; J1885; J2270; J2405; J3475; J7030

== ENCOUNTER 2019-02-09 15:19 | Outpatient (CLI) | payer OTHER ==
[2019-02-09 16:12] LABS: CALCIUM 9.9 mg/dL (8.4-11.0); CREATININE 0.96 mg/dL (0.55-1.30); POTASSIUM 4.3 mmol/L (3.5-5.1)
== END 2019-02-09 20:58 | disposition home or self-care (01) ==
LOC: SLB 15:19
PROVIDERS: ATTEND Internal Medicine
DX: E87.6 Hypokalemia (principal)
CPT/HCPCS: 36415; 80048; 83735-TC

== ENCOUNTER 2019-02-16 17:41 | Emergency (ER) | payer OTHER ==
[~2019-02-16] VITALS: Ht 162.6 cm; Wt 113.4 kg
[2019-02-16 17:45] VITALS: BP_SYST 118
--- NOTE | 2019-02-16 17:50 | NUR ---
Patient to ER bed 4 for evaluation.
--- NOTE | 2019-02-16 17:59 | NUR ---
ER at bedside examining patient.
--- NOTE | 2019-02-16 18:09 | NUR ---
PATIENT LEAVING TO X RAY IN STABLE CONDITION.
--- NOTE | 2019-02-16 18:14 | NUR ---
PATIENT BACK FROM X RAY IN STABLE CONDITION.
[2019-02-16] MEDS ORDERED: fentaNYL CITRATE/PF 100 MCG/2 ML AMP IM ONE (18:15)
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
[2019-02-16 19:06] LABS: CALCIUM 10.1 mg/dL (8.4-11.0); CREATININE 0.82 mg/dL (0.55-1.30); POTASSIUM 4.3 mmol/L (3.5-5.1)
--- NOTE | 2019-02-16 19:15 | NUR ---
ENDORSED CARE TO ABHILASH SNOW.
--- NOTE | 2019-02-16 19:22 | NUR ---
Patient resting comfortably. No acute distress noted.
[2019-02-16 19:45] VITALS: BP_SYST 124
--- NOTE | 2019-02-16 19:45 | NUR ---
Patient given written and verbal discharge instructions and verbalizes understanding. ER MD discussed with patient the results and treatment provided. Patient in stable condition. ID arm band removed. No Rx given. Patient educated on pain management and to follow up with PMD. Pain Scale 2/10 tolerable to patient. Opportunity for questions provided and answered.
== END 2019-02-16 19:45 | disposition home or self-care (01) ==
LOC: SED 17:41
DX: S40.012A Contusion of left shoulder, initial encounter (principal); I10 Essential (primary) hypertension; F41.9 Anxiety disorder, unspecified; M79.7 Fibromyalgia; Z88.0 Allergy status to penicillin; Z91.018 Allergy to other foods; Z79.899 Other long term (current) drug therapy; W01.0XXA Fall on same level from slipping, tripping and stumbling without subsequent striking against object, initial encounter; Y93.89 Activity, other specified; Y92.89 Other specified places as the place of occurrence of the external cause; Y99.8 Other external cause status
CPT/HCPCS: 36415; 73030; 80048; 83735; 96372; 99284; J3010

== ENCOUNTER 2019-02-18 19:33 | Inpatient (IN) | payer OTHER ==
[2019-02-17 00:15] VITALS: BP_SYST 109
[~2019-02-18] VITALS: Ht 162.6 cm; Wt 116.6 kg
--- NOTE | 2019-02-18 19:35 | NUR ---
Pt BIB EMS, placed to ER bed 05. Pt c/o RUQ and LUQ abdominal pain x 2 days with N/V/D. 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 Pt dx with abdominal hernias x 2 with a mass to the right kidney.
[2019-02-18 19:42] VITALS: BP_SYST 113
--- NOTE | 2019-02-18 19:42 | NUR ---
# 20 gauge angiocath placed to RAC per EMS LICENSED DIRECT ENTRY MIDWIFE. Blood return noted. Blood for lab drawn from site. Flushed with 10 cc of normal saline. No evidence of infiltration noted.
--- NOTE | 2019-02-18 20:03 | NUR ---
Harleen sandoval in ED - 02/18/19 at [address] Galeana at bedside.
--- NOTE | 2019-02-18 20:05 | NUR ---
ER at bedside examining patient.
[2019-02-18] MEDS ORDERED: ONDANSETRON HCL 4 MG/2 ML VIAL IVP ONE (20:15)
[2019-02-18] MEDS ORDERED: MORPHINE 4 MG/ML INJ. SYRINGE IVP ONE ×2 (20:15→21:45)
--- NOTE | 2019-02-18 20:15 | NUR ---
Pt requests IV benadryl prior to Morphine administration. Dr. Galeana at bedside to talk with pt.
[2019-02-18] MEDS ORDERED: DIPHENHYDRAMINE HCL 25 MG CAPSULE PO ONE (20:30)
[2019-02-18] MEDS ORDERED: DIPHENHYDRAMINE INJ 50 MG/ML VIAL IVP ONE (20:45)
--- NOTE | 2019-02-18 20:45 | NUR ---
Pt talking with family members at bedside, verbalizes improvement in pain, no needs verbalized at this time.
[2019-02-18 20:48] LABS: BASOPHILS # (AUTO) 0.1 K/uL (0.0-0.2); EOSINOPHILS # (AUTO) 0.2 K/uL (0.0-0.4); EOSINOPHILS % (AUTO) 1.9 % (0.0-4.0); HEMATOCRIT 37.3 % (36-48); LYMPHOCYTES # (AUTO) 3.8 K/uL (1.0-5.5); LYMPHOCYTES % (AUTO) 30.2 % (20.5-51.5); MEAN CORPUSCULAR HEMOGLOBIN 27 pg (27-31); MEAN CORPUSCULAR HGB CONC 32 % (32-36); MEAN CORPUSCULAR VOLUME 84 fL (79.0-98.0); NEUTROPHILS # (AUTO) 7.4 K/uL (1.8-7.7); NEUTROPHILS % (AUTO) 58.9 % (40.0-70.0); PLATELET COUNT (AUTO) 415 K/uL (130-430); RED BLOOD CELL COUNT(AUTO) 4.46 MIL/uL (4.2-6.2); RED CELL DISTRIBUTION WIDTH 17.4 % (9.0-15.0); WHITE BLOOD COUNT (AUTO) 12.6 K/uL (4.8-10.8)
[2019-02-18 20:54] LABS: CALCIUM 9.3 mg/dL (8.4-11.0); CREATININE 1.26 mg/dL (0.55-1.30); POTASSIUM 4.5 mmol/L (3.5-5.1)
[2019-02-18 20:59] LABS: ALBUMIN 3.7 g/dL (3.4-4.8); TOTAL BILIRUBIN 0.4 mg/dL (0.0-1.0)
--- NOTE | 2019-02-18 21:18 | NUR ---
Harleen christinajules in ED - 02/18/19 at 2223 by AUSTINJ Pt resting on left side with eyes closed, even and non-labored respirations, VSS, NAD. Magnesium Sulfate 2 GM continues to infuse without difficulty at 30 mL/hr to patent PIV RAC, no s/s infiltration.
--- NOTE | 2019-02-18 21:30 | NUR ---
Pt c/o RUQ abdominal pain. Dr. Galeana at bedside to reassess pt.
[2019-02-18] MEDS ORDERED: MAGNESIUM SULFATE 50 ML IV ONE (21:45)
--- NOTE | 2019-02-18 22:18 | NUR ---
Pt resting on left side with eyes closed, even and non-labored respirations, VSS, NAD. Magnesium Sulfate 2 GM continues to infuse without difficulty at 30 mL/hr to patent PIV RAC, no s/s infiltration.
--- NOTE | 2019-02-18 22:35 | NUR ---
Pt to U/S via W/C.
[2019-02-18] MEDS ORDERED: DIPHENHYDRAMINE INJ 50 MG/ML VIAL IVP SCH (22:45)
[2019-02-18] MEDS ORDERED: ONDANSETRON HCL 4 MG/2 ML VIAL IVP PRN (22:45)
[2019-02-18] MEDS ORDERED: PANTOPRAZOLE SODIUM 40 MG/VIAL (PROTONIX) IVP ONE (22:45)
[2019-02-18] MEDS ORDERED: MORPHINE 4 MG/ML INJ. SYRINGE IVP PRN (22:45)
--- NOTE | 2019-02-18 22:50 | NUR ---
Pt returns from U/S.
[2019-02-18] MEDS ORDERED: POTASSIUM CHLORIDE 20 MEQ TAB.PRT.SR PO SCH (23:00)
[2019-02-19] VITALS: BP_SYST 109
--- NOTE | 2019-02-19 00:05 | NUR ---
Patient will be admitted to care of Dr. Mota. Admitted to Med/Surg unit. Will go to room 116B. Belongings list completed. Summary report printed. Report will be given at bedside.
[2019-02-19 00:15] VITALS: BP_SYST 109
[2019-02-19] MEDS ORDERED: DIPHENHYDRAMINE INJ 50 MG/ML VIAL IM PRN (00:15)
--- NOTE | 2019-02-19 00:15 | NUR ---
ADMISSION NOTE Received patient from ER via marie, received report from YENY HUNG. Patient admitted with diagnosis of INTRACTABLE ABDOMINAL PAIN. Patient oriented to hospital routine, call light, toileting and safety-patient verbalized understanding.
[2019-02-19] MEDS ORDERED: PANTOPRAZOLE SODIUM 80 MG in NS 100 ML IV ONE (01:30)
[2019-02-19] MEDS ORDERED: PANTOPRAZOLE SODIUM 40 MG/VIAL (PROTONIX) ONE (01:37)
[2019-02-19] MEDS: DIPHENHYDRAMINE INJ 50 MG/ML VIAL IVP PRN ×5 (01:51→21:49)
[2019-02-19] MEDS: ONDANSETRON HCL 4 MG/2 ML VIAL IVP PRN ×5 (01:51→21:49)
[2019-02-19] MEDS: MORPHINE 4 MG/ML INJ. SYRINGE IVP PRN ×5 (01:54→21:50)
--- NOTE | 2019-02-19 03:19 | NUR ---
Patient in bed resting. Pain meds effective for abdominal pain. no respiratory distress.
--- NOTE | 2019-02-19 03:26 | NUR ---
CONSULT: CONSULT CALLED FOR DR. YESSY ABARCA IS BARBER SHOP OPERATOR I SPOKE WITH GLORY ROBIN REASON FOR CONSULT: ABDOMINAL PAIN REQUESTING CONSULT: DR. HOLLY INFORMATION TECHNOLOGY ADVISOR PHONE NUMBER: [phone]
[2019-02-19] MEDS: NS 250 ML IV SCH (05:51)
[2019-02-19] MEDS ORDERED: MAGNESIUM OXIDE 400 MG TABLET PO SCH (06:00)
--- NOTE | 2019-02-19 07:00 | NUR ---
CLosing Notes Patient resting in bed. Administered zofran, benedryl, and morphine. Pain located on the ruq 8/10. Tolerated well. No sob. All needs have been met and safety precautions in place. Patient refuses bed alarm. Will endorse care to oncoming nurse.
--- NOTE | 2019-02-19 07:00 | NUR ---
Dr Tamayo at bedside with patient.
[2019-02-19 08:40] VITALS: BP_SYST 100
--- NOTE | 2019-02-19 08:43 | NUR ---
am rounds: oriented x4. still complaining of right upper quadrant and occasionally radiates to the back accompanied by nausea, no vomiting, no diarrhea. Dr. Tamayo saw her, KUB was done. Call light within reach. Refuses bed alarm, patient is risk for falls due to pain medications.
[2019-02-19] MEDS: GABAPENTIN 100 MG CAPSULE PO SCH ×3 (08:46→22:08)
[2019-02-19 09:57] VITALS: BP_SYST 119
[2019-02-19] MEDS ORDERED: MORPHINE SULFATE 30 MG Immediate Release TABLET PO PRN (10:45)
[2019-02-19] MEDS ORDERED: COLCHICINE 0.6 MG TABLET PO PRN (10:45)
--- NOTE | 2019-02-19 10:47 | NUR ---
Home med reconcilliation: Clarified with Dr. Mota, orders for labs received and carried out.
[2019-02-19] MEDS ORDERED: CHOLECALCIFEROL (VITAMIN D-3) 400 UNIT TABLET PO ONE (11:00)
[2019-02-19] MEDS ORDERED: PANTOPRAZOLE SODIUM 40 MG/VIAL (PROTONIX) IVP ONE (11:00)
[2019-02-19 11:12] LABS: BASOPHILS # (AUTO) 0.1 K/uL (0.0-0.2); EOSINOPHILS # (AUTO) 0.4 K/uL (0.0-0.4); EOSINOPHILS % (AUTO) 3.3 % (0.0-4.0); HEMATOCRIT 33.9 % (36-48); HEMOGLOBIN 10.8 g/dL (12.0-16.0); LYMPHOCYTES # (AUTO) 4.1 K/uL (1.0-5.5); LYMPHOCYTES % (AUTO) 30.6 % (20.5-51.5); MEAN CORPUSCULAR HEMOGLOBIN 27 pg (27-31); MEAN CORPUSCULAR HGB CONC 32 % (32-36); MEAN CORPUSCULAR VOLUME 85 fL (79.0-98.0); MONOCYTES # (AUTO) 0.8 K/uL (0.0-1.0); NEUTROPHILS # (AUTO) 7.9 K/uL (1.8-7.7); NEUTROPHILS % (AUTO) 59.1 % (40.0-70.0); PLATELET COUNT (AUTO) 340 K/uL (130-430); RED CELL DISTRIBUTION WIDTH 17.9 % (9.0-15.0); WHITE BLOOD COUNT (AUTO) 13.4 K/uL (4.8-10.8)
[2019-02-19] MEDS: aMILoride HCL 5 MG TABLET PO SCH ×2 (11:14→22:14)
[2019-02-19] MEDS ORDERED: CYCLOBENZAPRINE HCL 10 MG TABLET (FLEXERIL) PO ONE (11:15)
[2019-02-19 11:19] LABS: CALCIUM 8.7 mg/dL (8.4-11.0); POTASSIUM 3.4 mmol/L (3.5-5.1)
--- NOTE | 2019-02-19 11:23 | NUR ---
Nutrition Assessment (short note d/t lack of time) A- Pt seen resting in bed at time of RD visit. Pt c/o headache and nausea. Last episode of emesis was last night and last episode of diarrhea was yesterday. Pt reported that she only had tea from clear liquid tray this morning. Pt was advised to have nutrient densed items from liquid trays. Pt verbalized understanding. 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 Pt also reported 10 lb wt gain in a few months. She stated that there were a lot of family gatherings lately that made her eat a little more that usual. Ht: 5'4 Wt:257 lb, 117 kg %IBW:214 IBW:120 lb, 55 kg Adj IBW Obesity: 154 lb, 70 kg ESTIMATED NUTRITIONAL REQUIREMENTS CALORIES/DAY: 9263-5695 kcal/day (25-30 kcal/kg Adj IBW for Obesity) PROTEIN/DAY: 42-105 gm/day (.6-1.5 gm/kg Adj IBW for Renal Dz and Obesity) FLUID/DAY: per MD (Renal Dz) D: Morbid Obesity r/t lifestyle factors AEB pt's report of frequent high calorie food intake, 10 lb wt gain and BMI 44.1 kg/m2. I: Recommend: continuing Full liquid diet per MD orders. If/when medically appropriate, advance diet to Soft CCHO 2gm Na diet. M: Monitor advancement of diet w/ goal of pt meeting at least 75% of estimated nutritional needs, labs trending WNL, normal GI function, skin integrity/wt maintenance. E: RD to F/U within 3-5 days [facility] [place]
[2019-02-19 11:24] LABS: ALBUMIN 3.3 g/dL (3.4-4.8); TOTAL BILIRUBIN 0.3 mg/dL (0.0-1.0)
--- NOTE | 2019-02-19 11:31 | NUR ---
Dietitian Recommendation Recommend: continuing Full liquid diet per MD orders. If/when medically appropriate, advance diet to Soft CCHO 2gm Na diet. ETTA BAIRES
[2019-02-19] MEDS ORDERED: DULoxetine HCL 30 MG CAPSULE.DR (CYMBALTA) PO ONE (11:45)
[2019-02-19] MEDS ORDERED: SPIRONOLACTONE 50 MG TABLET (ALDACTONE) PO ONE (11:45)
[2019-02-19] MEDS ORDERED: IPRATROPIUM/ALBUTEROL SULFATE 3 ML AMPUL.NEB (DUONEB) INH PRN (11:45)
[2019-02-19] MEDS ORDERED: POTASSIUM CHLORIDE 20 MEQ TAB.PRT.SR PO ONE (11:45)
[2019-02-19] MEDS: MAGNESIUM CHLORIDE 64 MG TABLET.DR PO SCH ×4 (12:20→22:10)
[2019-02-19] MEDS: POTASSIUM CHLORIDE 20 MEQ TAB.PRT.SR PO SCH ×4 (12:21→22:07)
[2019-02-19 12:28] VITALS: BP_SYST 115
[2019-02-19] MEDS: LORazepam 1 MG TABLET PO PRN (12:28)
[2019-02-19 13:57] VITALS: BP_SYST 106
[2019-02-19] MEDS ORDERED: POTASSIUM CHLORIDE 40 MEQ, MAGNESIUM SULFATE 4 GM, LIDOCAINE JECT 2% PF 100 MG 50 MG in... IV ONE ×4 (15:15)
[2019-02-19] MEDS ORDERED: DOXYCYCLINE HYCLATE 100 MG CAPSULE PO ONE (15:30)
--- NOTE | 2019-02-19 15:30 | NUR ---
MD rounds: Seen by Dr. Mota, aware of today's lab results.
[2019-02-19] MEDS: metroNIDAZOLE 250 MG TABLET PO SCH ×2 (16:43→22:08)
--- NOTE | 2019-02-19 16:50 | NUR ---
IV meds: Potassium and magnesium rider started. Patient is aware to stay NPO for hida scan tonight.
--- NOTE | 2019-02-19 18:00 | NUR ---
End of shift: Needs attended. NO change in assessment. Kept NPO.
--- NOTE | 2019-02-19 19:30 | NUR ---
Note undone in EDM - 02/20/19 at 0555 by DEEPALI Pt BIB EMS, placed to ER bed 05. Pt c/o RUQ and LUQ abdominal pain x 2 days with N/V/D. 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 Pt dx with abdominal hernias x 2 with a mass to the right kidney.
--- NOTE | 2019-02-19 19:35 | NUR ---
ROUNDS PATIENT RESTING COMFORTABLY IN BED, NOT IN DISTRESS, VITALS STABLE, C/O OF ABDOMINAL PAIN AT THIS TIME. ASSESSMENT DONE AND DOCUMENTED. SEE FLOWSHEET. PATIENT WAITING FOR HER SCHEDULED HIDA SCAN . NEEDS ATTENDED TO. SAFETY AND FALL PRECAUTION MEASURES IN PLACED. BED IN LOW AND LOCKED POSITION. CALL LIGHT PLACED WITHIN REACH.
--- NOTE | 2019-02-19 20:20 | NUR ---
NOTES PATIENT BROUGHT TO CT FOR HER HIDA SCAN ORDERED WITH STABLE VITAL SIGNS.
[2019-02-19] MEDS ORDERED: PANTOPRAZOLE SODIUM 40 MG/VIAL (PROTONIX) IVP SCH (21:00)
--- NOTE | 2019-02-19 22:00 | NUR ---
NOTES PATIENT BACK FROM HIDA SCAN, DUE MEDICATIONS GIVEN ORDERED. WILL CONTINUE TO MONITOR.
[2019-02-19] MEDS: CYCLOBENZAPRINE HCL 10 MG TABLET (FLEXERIL) PO SCH (22:08)
[2019-02-19] MEDS: DOXYCYCLINE HYCLATE 100 MG CAPSULE PO SCH (22:09)
[2019-02-19] MEDS: CHOLECALCIFEROL (VITAMIN D-3) 400 UNIT TABLET PO SCH (22:09)
--- NOTE | 2019-02-20 00:13 | NUR ---
PATIENT RESTING: Patient resting quietly. No acute distress noted. Vital signs within normal range.
[2019-02-20 01:27] VITALS: BP_SYST 110
[2019-02-20] MEDS: ONDANSETRON HCL 4 MG/2 ML VIAL IVP PRN ×5 (02:15→17:54)
[2019-02-20] MEDS: DIPHENHYDRAMINE INJ 50 MG/ML VIAL IVP PRN ×5 (02:16→17:55)
[2019-02-20] MEDS: MORPHINE 4 MG/ML INJ. SYRINGE IVP PRN ×5 (02:16→17:58)
--- NOTE | 2019-02-20 02:30 | NUR ---
ROUNDS PATIENT ASLEEP, RESPIRATIONS EVEN AND UNLABORED, WILL CONTINUE TO MONITOR.
[2019-02-20 03:36] LABS: BILIRUBIN,URINE NEGATIVE (NEGATIVE); BLOOD, URINE NEGATIVE (NEGATIVE); CLARITY/URINE CLEAR (CLEAR); COLOR,URINE YELLOW (YELLOW); GLUCOSE,URINE NEGATIVE (NEGATIVE); KETONES,URINE NEGATIVE (NEGATIVE); LEUKOCYTE ESTERASE ,URINE TRACE (NEGATIVE); NITRITE, URINE NEGATIVE (NEGATIVE); PROTEIN URINE NEGATIVE (NEGATIVE); UROBILINOGEN,URINE 0.2 (0.2-1.0)
[2019-02-20 03:40] LABS: BACTERIA,URINE FEW /HPF (None Seen); RBC,URINE 0-3 /HPF (0-3)
--- NOTE | 2019-02-20 04:12 | NUR ---
ROUNDS PATIENT ASLEEP, NO SOB NOR PAIN AND DISCOMFORT NOTED, WILL CONTINUE TO MONITOR.
[2019-02-20 06:47] LABS: BASOPHILS # (AUTO) 0.1 K/uL (0.0-0.2); BASOPHILS % (AUTO) 0.9 % (0.0-2.0); EOSINOPHILS # (AUTO) 0.4 K/uL (0.0-0.4); EOSINOPHILS % (AUTO) 4.4 % (0.0-4.0); HEMATOCRIT 35.9 % (36-48); HEMOGLOBIN 11.5 g/dL (12.0-16.0); LYMPHOCYTES # (AUTO) 3.3 K/uL (1.0-5.5); MEAN CORPUSCULAR HEMOGLOBIN 27 pg (27-31); MEAN CORPUSCULAR HGB CONC 32 % (32-36); MEAN CORPUSCULAR VOLUME 84 fL (79.0-98.0); MONOCYTES # (AUTO) 0.5 K/uL (0.0-1.0); MONOCYTES % (AUTO) 4.9 % (1.7-9.3); NEUTROPHILS # (AUTO) 5.3 K/uL (1.8-7.7); NEUTROPHILS % (AUTO) 55.8 % (40.0-70.0); PLATELET COUNT (AUTO) 340 K/uL (130-430); RED BLOOD CELL COUNT(AUTO) 4.28 MIL/uL (4.2-6.2); RED CELL DISTRIBUTION WIDTH 17.7 % (9.0-15.0); WHITE BLOOD COUNT (AUTO) 9.6 K/uL (4.8-10.8)
--- NOTE | 2019-02-20 06:56 | NUR ---
CLOSING NOTES PATIENT STABLE, NO MORE PAIN AT THIS TIME, ALL NEEDS ATTENDED TO. SAFETY AND FALL PRECAUTION MEASURES MAINTAINED. CALL LIGHT PLACED WITHIN REACH.
[2019-02-20 06:57] LABS: ALBUMIN 3.3 g/dL (3.4-4.8); CALCIUM 9.4 mg/dL (8.4-11.0); CREATININE 1.07 mg/dL (0.55-1.30); POTASSIUM 4.2 mmol/L (3.5-5.1); TOTAL BILIRUBIN 0.5 mg/dL (0.0-1.0)
[2019-02-20 07:44] VITALS: BP_SYST 130
[2019-02-20] MEDS: NS 250 ML IV SCH (07:51)
--- NOTE | 2019-02-20 07:53 | NUR ---
am rounds: oriented x4. no nausea/ no vomiting. diet is advanced to low fat. call light within reach.
[2019-02-20] MEDS: POTASSIUM CHLORIDE 20 MEQ TAB.PRT.SR PO SCH ×3 (08:06→17:54)
[2019-02-20] MEDS: MAGNESIUM CHLORIDE 64 MG TABLET.DR PO SCH ×3 (08:06→17:54)
[2019-02-20] MEDS: aMILoride HCL 5 MG TABLET PO SCH (08:06)
[2019-02-20] MEDS: DOXYCYCLINE HYCLATE 100 MG CAPSULE PO SCH (08:06)
[2019-02-20] MEDS: CYCLOBENZAPRINE HCL 10 MG TABLET (FLEXERIL) PO SCH (08:07)
[2019-02-20] MEDS: metroNIDAZOLE 250 MG TABLET PO SCH ×3 (08:07→17:54)
[2019-02-20] MEDS: CHOLECALCIFEROL (VITAMIN D-3) 400 UNIT TABLET PO SCH (08:07)
[2019-02-20] MEDS: GABAPENTIN 100 MG CAPSULE PO SCH ×2 (08:07→16:14)
[2019-02-20] MEDS: LORazepam 1 MG TABLET PO PRN (08:11)
[2019-02-20] MEDS ORDERED: DULoxetine HCL 30 MG CAPSULE.DR (CYMBALTA) PO SCH (09:00)
[2019-02-20] MEDS ORDERED: PANTOPRAZOLE SODIUM 40 MG/VIAL (PROTONIX) IVP SCH (09:00)
[2019-02-20] MEDS ORDERED: POLYETHYLENE GLYCOL 3350, 17 GM/ POWD.PACK PO SCH (09:00)
[2019-02-20] MEDS ORDERED: SPIRONOLACTONE 50 MG TABLET (ALDACTONE) PO SCH (09:00)
[2019-02-20] MEDS: DICYCLOMINE HCL 10 MG CAPSULE PO SCH ×2 (10:03→16:14)
--- NOTE | 2019-02-20 10:04 | NUR ---
Pain: Medicated for abdominal 8/10 pain, no nausea/vomiting. Tolerated low fat diet for breakfast.
[2019-02-20 10:05] VITALS: BP_SYST 106
[2019-02-20 13:42] VITALS: BP_SYST 118
--- NOTE | 2019-02-20 15:20 | NUR ---
MD rounds: Seen by Dr. Mota, patient will be discharged home today, labs and tests were explained to the patient.
[2019-02-20] MEDS ORDERED: cefTRIAXone 2 GM in D5W 50 ML IV ONE (15:30)
[2019-02-20 16:13] VITALS: BP_SYST 101
[2019-02-20 16:20] VITALS: BP_SYST 101
[2019-02-20] MEDS ORDERED: PRO40 PO (16:28)
[2019-02-20] MEDS ORDERED: DOXY100T2 PO (16:28)
--- NOTE | 2019-02-20 19:15 | NUR ---
NOTES PATIENT DISCHARGED HOME ORDERED WITH STABLE VITAL SIGNS, NO PAIN AND DISCOMFORT NOTED. DISCHARGE INSTRUCTIONS, HOME MEDICATIONS, CLINIC FOLLOW UP ALREADY EXPLAINED TO PATIENT BY A. M. SHIFT NURSE. ALL DISCHARGE PAPERS SIGNED, IV D/CD. PATIENT WHEELED TO THE OUTSIDE VIA WHEELCHAIR TO THEIR PRIVATE CAR OUTSIDE.
[2019-02-21] MEDS ORDERED: cefTRIAXone 1 GM in D5W 50 ML IV SCH (09:00)
== END 2019-02-20 19:15 | disposition home or self-care (01) | DRG 872 ==
LOC: SED 19:33 → SMU 22:41
PROVIDERS: ADMIT Internal Medicine; ATTEND Internal Medicine
DX: A41.9 Sepsis, unspecified organism (principal); A04.9 Bacterial intestinal infection, unspecified; Z68.41 Body mass index [BMI] 40.0-44.9, adult; N39.0 Urinary tract infection, site not specified; F41.9 Anxiety disorder, unspecified; I12.9 Hypertensive chronic kidney disease with stage 1 through stage 4 chronic kidney disease, or unspecified chronic kidney disease; E66.9 Obesity, unspecified; F32.9 Major depressive disorder, single episode, unspecified; G89.4 Chronic pain syndrome; J45.909 Unspecified asthma, uncomplicated; E03.9 Hypothyroidism, unspecified; E83.42 Hypomagnesemia; E87.6 Hypokalemia; D64.9 Anemia, unspecified; M10.9 Gout, unspecified; K42.9 Umbilical hernia without obstruction or gangrene; M79.7 Fibromyalgia; N18.9 Chronic kidney disease, unspecified; Z90.710 Acquired absence of both cervix and uterus; Z88.0 Allergy status to penicillin; Z91.018 Allergy to other foods; Z91.048 Other nonmedicinal substance allergy status; Z79.899 Other long term (current) drug therapy; Z98.51 Tubal ligation status
CPT/HCPCS: 36415; 74018; 76700-TC; 78226; 80053; 81000-TC; 83690-TC; 83735-TC; 84484; 84703; 85025; 94760; 96365; 96366; 99285; A9537; C9113; J0696; J1200; J2270; J2405; J3475; J3480; J7050; J7060

== ENCOUNTER 2019-03-04 20:57 | Emergency (ER) | payer OTHER ==
[~2019-03-04] VITALS: Ht 162.6 cm; Wt 113.4 kg
[~2019-03-04 20:57] MED LIST changes: +DOXY100T2 PO; +PRO40 PO
[2019-03-04 21:04] VITALS: BP_SYST 128
[2019-03-04 21:44] LABS: BASOPHILS # (AUTO) 0.2 K/uL (0.0-0.2); BASOPHILS % (AUTO) 1.1 % (0.0-2.0); EOSINOPHILS # (AUTO) 0.2 K/uL (0.0-0.4); EOSINOPHILS % (AUTO) 0.9 % (0.0-4.0); HEMATOCRIT 44.2 % (36-48); HEMOGLOBIN 14.2 g/dL (12.0-16.0); LYMPHOCYTES # (AUTO) 3.1 K/uL (1.0-5.5); LYMPHOCYTES % (AUTO) 18.7 % (20.5-51.5); MEAN CORPUSCULAR HEMOGLOBIN 27 pg (27-31); MEAN CORPUSCULAR HGB CONC 32 % (32-36); MEAN CORPUSCULAR VOLUME 83 fL (79.0-98.0); MONOCYTES % (AUTO) 5.9 % (1.7-9.3); NEUTROPHILS # (AUTO) 12.2 K/uL (1.8-7.7); NEUTROPHILS % (AUTO) 73.4 % (40.0-70.0); PLATELET COUNT (AUTO) 530 K/uL (130-430); RED BLOOD CELL COUNT(AUTO) 5.32 MIL/uL (4.2-6.2); RED CELL DISTRIBUTION WIDTH 17.2 % (9.0-15.0); WHITE BLOOD COUNT (AUTO) 16.7 K/uL (4.8-10.8)
[2019-03-04] MEDS ORDERED: MORPHINE 4 MG/ML INJ. SYRINGE IVP ONE (21:45)
[2019-03-04] MEDS ORDERED: NACL 0.9% 1,000 ML IV ONE (21:45)
[2019-03-04] MEDS ORDERED: MAGNESIUM SULFATE 50 ML IV ONE (21:45)
[2019-03-04] MEDS ORDERED: ONDANSETRON HCL 4 MG/2 ML VIAL IVP ONE (21:45)
[2019-03-04 21:50] LABS: CALCIUM 10.1 mg/dL (8.4-11.0); CREATININE 1.3 mg/dL (0.55-1.30); POTASSIUM 3.7 mmol/L (3.5-5.1)
[2019-03-04 21:54] LABS: ALBUMIN 4.3 g/dL (3.4-4.8); TOTAL BILIRUBIN 0.6 mg/dL (0.0-1.0)
[2019-03-04] MEDS ORDERED: DIPHENHYDRAMINE INJ 50 MG/ML VIAL IVP ONE (22:00)
[2019-03-04 23:36] LABS: BILIRUBIN,URINE NEGATIVE (NEGATIVE); BLOOD, URINE NEGATIVE (NEGATIVE); CLARITY/URINE CLEAR (CLEAR); COLOR,URINE YELLOW (YELLOW); GLUCOSE,URINE NEGATIVE (NEGATIVE); KETONES,URINE NEGATIVE (NEGATIVE); LEUKOCYTE ESTERASE ,URINE NEGATIVE (NEGATIVE); NITRITE, URINE NEGATIVE (NEGATIVE); PROTEIN URINE NEGATIVE (NEGATIVE); UROBILINOGEN,URINE 0.2 (0.2-1.0)
[2019-03-05] MEDS ORDERED: MORPHINE 4 MG/ML INJ. SYRINGE IVP ONE
[2019-03-05 00:17] VITALS: BP_SYST 109
== END 2019-03-05 00:18 | disposition home or self-care (01) ==
LOC: SED 20:57
DX: N15.8 Other specified renal tubulo-interstitial diseases (principal); I10 Essential (primary) hypertension; F41.9 Anxiety disorder, unspecified; M79.7 Fibromyalgia; Z88.0 Allergy status to penicillin; Z91.018 Allergy to other foods; Z79.899 Other long term (current) drug therapy
CPT/HCPCS: 36415; 80053; 81003; 83735; 85025; 96365; 96366; 96375; 96376; 99283; J1200; J2270 ×2; J2405; J3475

== ENCOUNTER 2019-03-11 00:02 | Emergency (ER) | payer OTHER ==
[~2019-03-11] VITALS: Ht 162.6 cm; Wt 113.4 kg
[2019-03-11 00:05] VITALS: BP_SYST 114
--- NOTE | 2019-03-11 00:08 | NUR ---
Patient to ER bed 4 for evaluation.
--- NOTE | 2019-03-11 00:10 | NUR ---
Patient to ER via triage with family for evaluation of nausea, vomiting, abdominal cramping and leg pain. Patient arrives to bed 4 via wheelchair and was assisted into bed without incident. Patient is awake, alert and oriented in no acute distress, vital signs stable, respirations even and unlabored, skin warm and dry to touch. Family remains at bedside, awaiting evaluation by ER MD, will continue to observe and assess.
[2019-03-11] MEDS ORDERED: NACL 0.9% 1,000 ML IV ONE (00:15)
[2019-03-11] MEDS ORDERED: MAGNESIUM SULFATE 50 ML IV ONE (00:15)
[2019-03-11] MEDS ORDERED: MORPHINE 4 MG/ML INJ. SYRINGE IVP ONE ×2 (00:15→03:00)
[2019-03-11] MEDS ORDERED: DIPHENHYDRAMINE INJ 50 MG/ML VIAL IVP ONE ×2 (00:15→03:00)
--- NOTE | 2019-03-11 00:20 | NUR ---
DENNIS Cummings at bedside examining patient.
--- NOTE | 2019-03-11 00:51 | NUR ---
# 20 gauge angiocath placed to RT AC. Use of asceptic technique. Opsite placed over site. Blood return noted. Blood for lab drawn from site. Flushed with 10 cc of normal saline. No evidence of infiltration noted. Patient tolerated well.
[2019-03-11] MEDS ORDERED: ONDANSETRON HCL 4 MG/2 ML VIAL IVP ONE ×2 (01:00→03:00)
[2019-03-11 01:05] LABS: MEAN CORPUSCULAR HEMOGLOBIN 27 pg (27-31)
[2019-03-11] MEDS ORDERED: ONDANSETRON HCL 4 MG/2 ML VIAL ONE (01:07)
[2019-03-11 01:09] LABS: BASOPHILS # (AUTO) 0.1 K/uL (0.0-0.2); BASOPHILS % (AUTO) 0.5 % (0.0-2.0); EOSINOPHILS # (AUTO) 0.2 K/uL (0.0-0.4); HEMOGLOBIN 12.9 g/dL (12.0-16.0); LYMPHOCYTES # (AUTO) 3.2 K/uL (1.0-5.5); LYMPHOCYTES % (AUTO) 20.6 % (20.5-51.5); MEAN CORPUSCULAR HGB CONC 32 % (32-36); MEAN CORPUSCULAR VOLUME 83 fL (79.0-98.0); MONOCYTES # (AUTO) 0.9 K/uL (0.0-1.0); MONOCYTES % (AUTO) 5.5 % (1.7-9.3); NEUTROPHILS # (AUTO) 11.4 K/uL (1.8-7.7); NEUTROPHILS % (AUTO) 72.4 % (40.0-70.0); PLATELET COUNT (AUTO) 435 K/uL (130-430); RED BLOOD CELL COUNT(AUTO) 4.83 MIL/uL (4.2-6.2); RED CELL DISTRIBUTION WIDTH 16.5 % (9.0-15.0); WHITE BLOOD COUNT (AUTO) 15.8 K/uL (4.8-10.8)
[2019-03-11 01:16] LABS: CALCIUM 9.2 mg/dL (8.4-11.0); CREATININE 1.27 mg/dL (0.55-1.30); POTASSIUM 4.3 mmol/L (3.5-5.1)
[2019-03-11 01:22] LABS: ALBUMIN 3.6 g/dL (3.4-4.8); TOTAL BILIRUBIN 0.4 mg/dL (0.0-1.0)
--- NOTE | 2019-03-11 01:23 | NUR ---
Pt able to ambulate with steady gait to bathroom. Will cont. to monitor.
[2019-03-11 01:34] LABS: BILIRUBIN,URINE NEGATIVE (NEGATIVE); BLOOD, URINE NEGATIVE (NEGATIVE); CLARITY/URINE CLEAR (CLEAR); COLOR,URINE YELLOW (YELLOW); GLUCOSE,URINE NEGATIVE (NEGATIVE); KETONES,URINE TRACE (NEGATIVE); LEUKOCYTE ESTERASE ,URINE NEGATIVE (NEGATIVE); NITRITE, URINE NEGATIVE (NEGATIVE); PROTEIN URINE TRACE (NEGATIVE)
[2019-03-11 01:42] LABS: BACTERIA,URINE FEW /HPF (None Seen); RBC,URINE 0-3 /HPF (0-3); WBC,URINE 0-3 /HPF (0-3)
[2019-03-11 03:28] VITALS: BP_SYST 114
--- NOTE | 2019-03-11 03:28 | NUR ---
Patient given written and verbal discharge instructions and verbalizes understanding. ER MD Dr. Polo discussed with patient the results and treatment provided. Patient in stable condition. ID arm band removed. Patient educated on pain management and to follow up with PMD. Pain Scale 2/10, tolerable for pt. Opportunity for questions provided and answered. Medication side effect fact sheet provided.
== END 2019-03-11 03:28 | disposition home or self-care (01) ==
LOC: SED 00:02
DX: R10.84 Generalized abdominal pain (principal); R25.2 Cramp and spasm; R11.2 Nausea with vomiting, unspecified; I10 Essential (primary) hypertension; F41.9 Anxiety disorder, unspecified; M79.7 Fibromyalgia; Z79.899 Other long term (current) drug therapy; Z88.0 Allergy status to penicillin; Z91.018 Allergy to other foods
CPT/HCPCS: 36415; 80053; 81000; 83735; 85025; 96365; 96366; 96375; 96376; 99283; J1200; J2270; J2405; J3475; J7030

== ENCOUNTER 2019-03-12 18:46 | Emergency (ER) | payer OTHER ==
[~2019-03-12] VITALS: Ht 162.6 cm; Wt 113.4 kg
[2019-03-12 18:53] VITALS: BP_SYST 126
[2019-03-12] MEDS ORDERED: NACL 0.9% 1,000 ML IV ONE (18:55)
--- NOTE | 2019-03-12 18:56 | NUR ---
Patient to ER bed 05 to gown for evaluation. Side rails up.
--- NOTE | 2019-03-12 19:10 | NUR ---
ER MD Perdomo at bedside for medical evaluation.
[2019-03-12] MEDS ORDERED: MORPHINE 4 MG/ML INJ. SYRINGE IVP ONE ×3 (19:15→22:45)
[2019-03-12] MEDS ORDERED: ONDANSETRON HCL 4 MG/2 ML VIAL IVP ONE (19:15)
--- NOTE | 2019-03-12 19:25 | NUR ---
Note undone in EDM - 03/12/19 at 2001 by KEYSHAWN # 20 gauge angiocath placed to RFA. Use of asceptic technique. Opsite placed over site. Blood return noted. Blood for lab drawn from site. Flushed with 10 cc of normal saline. No evidence of infiltration noted. Patient tolerated well.
--- NOTE | 2019-03-12 19:25 | NUR ---
Note undone in EDM - 03/12/19 at 1958 by KEYSHAWN # 20 gauge angiocath placed to LFA. Use of asceptic technique. Opsite placed over site. Blood return noted. Blood for lab drawn from site. Flushed with 10 cc of normal saline. No evidence of infiltration noted. Patient tolerated well.
--- NOTE | 2019-03-12 19:30 | NUR ---
Madelin Herrera is a 53-year-old Female with a history of Gitelman's syndrome, diverticulitis, gastritis, and hypertension who presents to the ED for a complaint of constant diffuse abdominal pain 10/10 sharp. She further 6-7 episodes of emesis that started after eating lunch at 3pm. The patient states incontinence today as she is unable to control her bladder or bowels. Patient reportedly took Morphine this morning without improvement. Patient has multiple previous visits for the same symptoms. Otherwise, the patient denies fever, chills, eating raw/undercooked foods, or any other complaints. Safety precaution observed, will continue to monitor Pt.
[2019-03-12 19:59] LABS: BASOPHILS # (AUTO) 0.1 K/uL (0.0-0.2); BASOPHILS % (AUTO) 0.5 % (0.0-2.0); EOSINOPHILS # (AUTO) 0.1 K/uL (0.0-0.4); EOSINOPHILS % (AUTO) 0.7 % (0.0-4.0); HEMATOCRIT 39.5 % (36-48); HEMOGLOBIN 12.7 g/dL (12.0-16.0); LYMPHOCYTES # (AUTO) 2.6 K/uL (1.0-5.5); LYMPHOCYTES % (AUTO) 15.9 % (20.5-51.5); MEAN CORPUSCULAR HEMOGLOBIN 27 pg (27-31); MEAN CORPUSCULAR HGB CONC 32 % (32-36); MEAN CORPUSCULAR VOLUME 82 fL (79.0-98.0); MONOCYTES # (AUTO) 0.6 K/uL (0.0-1.0); MONOCYTES % (AUTO) 3.9 % (1.7-9.3); NEUTROPHILS # (AUTO) 12.8 K/uL (1.8-7.7); PLATELET COUNT (AUTO) 451 K/uL (130-430); RED CELL DISTRIBUTION WIDTH 16.4 % (9.0-15.0); WHITE BLOOD COUNT (AUTO) 16.1 K/uL (4.8-10.8)
--- NOTE | 2019-03-12 20:05 | NUR ---
ER MD Galeana at bedside for medical evaluation.
[2019-03-12 20:11] LABS: CALCIUM 9.7 mg/dL (8.4-11.0); CREATININE 1.28 mg/dL (0.55-1.30); POTASSIUM 3.4 mmol/L (3.5-5.1)
[2019-03-12 20:15] LABS: ALBUMIN 3.8 g/dL (3.4-4.8); TOTAL BILIRUBIN 0.5 mg/dL (0.0-1.0)
[2019-03-12] MEDS ORDERED: DIPHENHYDRAMINE INJ 50 MG/ML VIAL IVP ONE ×2 (20:15→23:30)
[2019-03-12 20:21] LABS: PROTHROMBIN TIME 10.1 SECS (9.5-12.5)
--- NOTE | 2019-03-12 23:30 | NUR ---
Pt in bed, no acute distress at this time. Will continue to monitor Pt.
--- NOTE | 2019-03-12 23:47 | NUR ---
Note undone in EDM - 03/12/19 at 2350 by [email or web address] Madelin Herrera is a 53-year-old Female with a history of Gitelman's syndrome, diverticulitis, gastritis, and hypertension who presents to the ED for a complaint of constant diffuse abdominal pain 06/16 sharp. She further 6-7 episodes of emesis that started after eating lunch at 3pm. The patient states incontinence today as she is unable to control her bladder or bowels. Patient reportedly took Morphine this morning without improvement. Patient has multiple previous visits for the same symptoms. Otherwise, the patient denies fever, chills, eating raw/undercooked foods, or any other complaints. Safety precaution observed, will continue to monitor Pt.
[2019-03-13 00:37] VITALS: BP_SYST 125
--- NOTE | 2019-03-13 00:37 | NUR ---
Patient given written and verbal discharge instructions and verbalizes understanding. ER MD Galeana discussed with patient the results and treatment provided. Patient in stable condition. ID arm band removed. IV catheter removed intact and dressing applied, no active bleeding. Patient educated on pain management and to follow up with PMD. Pain Scale 0/10.Opportunity for questions provided and answered. Medication side effect fact sheet provided.
== END 2019-03-13 00:37 | disposition home or self-care (01) ==
LOC: SED 18:46
DX: R10.84 Generalized abdominal pain (principal); R19.7 Diarrhea, unspecified; R11.10 Vomiting, unspecified; I10 Essential (primary) hypertension; F41.9 Anxiety disorder, unspecified; Z90.710 Acquired absence of both cervix and uterus; Z88.0 Allergy status to penicillin; Z91.018 Allergy to other foods
CPT/HCPCS: 36415; 80053; 82150; 82550; 83605; 83690; 83735; 85025; 85610; 85730; 87040; 93005; 96374; 96375; 96376; 99284; J1200; J2270; J2405; J7030

== ENCOUNTER 2019-03-19 23:17 | Emergency (ER) | payer OTHER ==
[~2019-03-19] VITALS: Ht 162.6 cm; Wt 113.4 kg
[2019-03-19 23:40] VITALS: BP_SYST 119
--- NOTE | 2019-03-19 23:40 | NUR ---
Placed in room 3 . Placed on cardiac technician, blood pressure machine and pulse oximeter. To gown for exam. Side rails up.
[2019-03-20 00:21] LABS: CALCIUM 9.3 mg/dL (8.4-11.0); CREATININE 1.16 mg/dL (0.55-1.30); POTASSIUM 3.3 mmol/L (3.5-5.1)
[2019-03-20 00:26] LABS: TOTAL BILIRUBIN 0.3 mg/dL (0.0-1.0)
--- NOTE | 2019-03-20 00:36 | NUR ---
ER Dr. Blair at bedside examining patient.
[2019-03-20 00:37] LABS: BASOPHILS # (AUTO) 0.1 K/uL (0.0-0.2); BASOPHILS % (AUTO) 0.9 % (0.0-2.0); EOSINOPHILS # (AUTO) 0.2 K/uL (0.0-0.4); EOSINOPHILS % (AUTO) 1.5 % (0.0-4.0); HEMATOCRIT 39.9 % (36-48); LYMPHOCYTES # (AUTO) 3.8 K/uL (1.0-5.5); LYMPHOCYTES % (AUTO) 27.1 % (20.5-51.5); MEAN CORPUSCULAR HEMOGLOBIN 27 pg (27-31); MEAN CORPUSCULAR HGB CONC 33 % (32-36); MEAN CORPUSCULAR VOLUME 83 fL (79.0-98.0); MONOCYTES # (AUTO) 0.8 K/uL (0.0-1.0); MONOCYTES % (AUTO) 5.9 % (1.7-9.3); NEUTROPHILS % (AUTO) 64.6 % (40.0-70.0); PLATELET COUNT (AUTO) 408 K/uL (130-430); RED BLOOD CELL COUNT(AUTO) 4.81 MIL/uL (4.2-6.2); RED CELL DISTRIBUTION WIDTH 16.2 % (9.0-15.0); WHITE BLOOD COUNT (AUTO) 13.9 K/uL (4.8-10.8)
[2019-03-20] MEDS ORDERED: ONDANSETRON HCL 4 MG/2 ML VIAL IVP ONE (00:45)
[2019-03-20] MEDS ORDERED: NACL 0.9% 1,000 ML IV ONE (00:45)
[2019-03-20] MEDS ORDERED: KETOROLAC TROMETHAMINE 30 MG VIAL IVP ONE (00:45)
--- NOTE | 2019-03-20 00:45 | NUR ---
Pt BIB family to ED C/O leg pain, right calf was "throbbing and can see it throbbing." Pt has Hx of electrolytes imbalance, especially, mag and K. No other complaints and or injuries noted. VSS no s/s of acute distress. Resting on gurney with rails up
[2019-03-20] MEDS ORDERED: DIPHENHYDRAMINE INJ 50 MG/ML VIAL IVP ONE (01:00)
[2019-03-20] MEDS ORDERED: DIPHENHYDRAMINE INJ 50 MG/ML VIAL ONE (01:05)
[2019-03-20] MEDS ORDERED: MAGNESIUM SULFATE 50 ML IV ONE (01:30)
[2019-03-20] MEDS ORDERED: METHOCARBAMOL 1000 MG/10 ML VIAL IM ONE (01:30)
[2019-03-20] MEDS ORDERED: POTASSIUM CHLORIDE 20 MEQ TAB.PRT.SR PO ONE (01:30)
--- NOTE | 2019-03-20 01:41 | NUR ---
Medications were given pt tolerated well. No adverse reaction, will continue to monitor.
[2019-03-20] MEDS ORDERED: METHOCARBAMOL 500 MG TABLET PO ONE (01:45)
[2019-03-20] MEDS ORDERED: MORPHINE 4 MG/ML INJ. SYRINGE IVP ONE (02:00)
--- NOTE | 2019-03-20 02:15 | NUR ---
IV electrolyte replacement well tolerated
--- NOTE | 2019-03-20 03:10 | NUR ---
Pt states "I'm feeling better." Pt's daughter is available to provide transportation post DC.
[2019-03-20 04:00] VITALS: BP_SYST 118
--- NOTE | 2019-03-20 04:00 | NUR ---
Patient given written and verbal discharge instructions and verbalizes understanding. ER MD discussed with patient the results and treatment provided. Patient in stable condition. ID arm band removed. IV catheter removed intact and dressing applied, no active bleeding. Patient educated on pain management and to follow up with PMD. Pain Scale 0/10 Opportunity for questions provided and answered.
== END 2019-03-20 04:00 | disposition home or self-care (01) ==
LOC: SED 23:17
DX: E87.6 Hypokalemia (principal); E83.42 Hypomagnesemia; N15.8 Other specified renal tubulo-interstitial diseases; R25.2 Cramp and spasm; F41.9 Anxiety disorder, unspecified; M79.7 Fibromyalgia; Z88.0 Allergy status to penicillin; Z91.018 Allergy to other foods; Z79.899 Other long term (current) drug therapy
CPT/HCPCS: 36415; 80053; 83735; 85025; 96365; 96366; 96375; 99283; J1200; J1885; J2270; J2405; J3475; J7030; J2800

== ENCOUNTER 2019-03-21 18:42 | Emergency (ER) | payer OTHER ==
[~2019-03-21] VITALS: Ht 162.6 cm; Wt 113.4 kg
[2019-03-21 19:11] VITALS: BP_SYST 122; BP_SYST 93
[2019-03-21 19:34] LABS: BASOPHILS # (AUTO) 0.1 K/uL (0.0-0.2); BASOPHILS % (AUTO) 1.3 % (0.0-2.0); EOSINOPHILS # (AUTO) 0.2 K/uL (0.0-0.4); EOSINOPHILS % (AUTO) 1.8 % (0.0-4.0); HEMATOCRIT 38.2 % (36-48); HEMOGLOBIN 12.4 g/dL (12.0-16.0); LYMPHOCYTES # (AUTO) 2.2 K/uL (1.0-5.5); LYMPHOCYTES % (AUTO) 24.3 % (20.5-51.5); MEAN CORPUSCULAR HEMOGLOBIN 27 pg (27-31); MEAN CORPUSCULAR HGB CONC 33 % (32-36); MEAN CORPUSCULAR VOLUME 83 fL (79.0-98.0); MONOCYTES # (AUTO) 0.3 K/uL (0.0-1.0); MONOCYTES % (AUTO) 3.7 % (1.7-9.3); NEUTROPHILS # (AUTO) 6.2 K/uL (1.8-7.7); NEUTROPHILS % (AUTO) 68.9 % (40.0-70.0); PLATELET COUNT (AUTO) 367 K/uL (130-430); RED CELL DISTRIBUTION WIDTH 15.8 % (9.0-15.0)
[2019-03-21 19:56] LABS: CALCIUM 9.9 mg/dL (8.4-11.0); CREATININE 1.01 mg/dL (0.55-1.30); POTASSIUM 4.3 mmol/L (3.5-5.1)
--- NOTE | 2019-03-21 22:45 | NUR ---
Pt placed to ER bed 04, report given to ABHILASH Bunn.
--- NOTE | 2019-03-21 22:50 | NUR ---
Dr. Blair bedside for Pt eval
--- NOTE | 2019-03-21 22:52 | NUR ---
Pt BIB family to ED C/O leg cramps. Symptoms began began a few days ago, and she reports her cramping pain is 10/10 in severity, nonradiating, constant. Patient has been seen in the ER multiple times for similar episodes and she reports the symptoms are similar. Patient seen yesterday and treated for hypokalemia and hypomagnesia. No other complaints and or injuries noted. VSS no s/s acute distress. Resting on gurney with rails up
[2019-03-21 23:00] VITALS: BP_SYST 122
--- NOTE | 2019-03-21 23:00 | NUR ---
Patient given written and verbal discharge instructions and verbalizes understanding. ER MD discussed with patient the results and treatment provided. Patient in stable condition. ID arm band removed. Patient educated on pain management and to follow up with PMD. Pain Scale 0/10 Opportunity for questions provided and answered.
== END 2019-03-21 23:00 | disposition home or self-care (01) ==
LOC: SED 18:42
DX: R25.2 Cramp and spasm (principal); I10 Essential (primary) hypertension; F41.9 Anxiety disorder, unspecified; M79.7 Fibromyalgia; Z88.0 Allergy status to penicillin; Z91.018 Allergy to other foods; Z79.899 Other long term (current) drug therapy
CPT/HCPCS: 36415; 80048; 83735-TC; 85025; 99283

== ENCOUNTER 2019-03-25 18:30 | Emergency (ER) | payer OTHER ==
[~2019-03-25] VITALS: Ht 162.6 cm; Wt 113.4 kg
[2019-03-25 18:37] VITALS: BP_SYST 128
[2019-03-25 19:15] LABS: BASOPHILS # (AUTO) 0.1 K/uL (0.0-0.2); EOSINOPHILS # (AUTO) 0.3 K/uL (0.0-0.4); EOSINOPHILS % (AUTO) 2.4 % (0.0-4.0); HEMATOCRIT 35.8 % (36-48); HEMOGLOBIN 11.6 g/dL (12.0-16.0); LYMPHOCYTES % (AUTO) 26.4 % (20.5-51.5); MEAN CORPUSCULAR HEMOGLOBIN 27 pg (27-31); MEAN CORPUSCULAR HGB CONC 32 % (32-36); MEAN CORPUSCULAR VOLUME 82 fL (79.0-98.0); MONOCYTES # (AUTO) 0.6 K/uL (0.0-1.0); MONOCYTES % (AUTO) 5.6 % (1.7-9.3); NEUTROPHILS # (AUTO) 7.2 K/uL (1.8-7.7); NEUTROPHILS % (AUTO) 64.6 % (40.0-70.0); PLATELET COUNT (AUTO) 327 K/uL (130-430); RED BLOOD CELL COUNT(AUTO) 4.34 MIL/uL (4.2-6.2); RED CELL DISTRIBUTION WIDTH 15.7 % (9.0-15.0); WHITE BLOOD COUNT (AUTO) 11.2 K/uL (4.8-10.8)
[2019-03-25 19:25] LABS: CREATININE 0.96 mg/dL (0.55-1.30)
[2019-03-25 19:28] LABS: ALBUMIN 3.5 g/dL (3.4-4.8); TOTAL BILIRUBIN 0.3 mg/dL (0.0-1.0)
[2019-03-25] MEDS ORDERED: MAGNESIUM SULFATE IN WATER 100 ML IV ONE (19:45)
[2019-03-25] MEDS ORDERED: DIPHENHYDRAMINE INJ 50 MG/ML VIAL IVP ONE (19:45)
[2019-03-25] MEDS ORDERED: ONDANSETRON HCL 4 MG/2 ML VIAL IVP ONE (19:45)
[2019-03-25] MEDS ORDERED: MORPHINE 4 MG/ML INJ. SYRINGE IVP ONE ×2 (19:45→22:00)
[2019-03-25] MEDS ORDERED: MAGNESIUM SULFATE 4 GM in D5W 250 ML IV ONE (20:00)
[2019-03-25] MEDS ORDERED: MAGNESIUM SULFATE 1 GM/2 ML VIAL ONE (20:14)
[2019-03-25 23:00] VITALS: BP_SYST 122
== END 2019-03-25 23:00 | disposition home or self-care (01) ==
LOC: SED 18:30
DX: E83.42 Hypomagnesemia (principal); R25.2 Cramp and spasm; I10 Essential (primary) hypertension; F41.9 Anxiety disorder, unspecified; M79.7 Fibromyalgia; Z88.0 Allergy status to penicillin; Z91.018 Allergy to other foods; Z79.899 Other long term (current) drug therapy
CPT/HCPCS: 36415; 80053; 81002; 81025; 82550; 83735; 85025; 96365; 96366; 96375; 99284; J1200; J2270; J2405; J3475

== ENCOUNTER 2019-03-28 15:47 | Outpatient (CLI) | payer OTHER ==
[2019-03-28 16:32] LABS: BASOPHILS # (AUTO) 0.1 K/uL (0.0-0.2); BASOPHILS % (AUTO) 0.9 % (0.0-2.0); EOSINOPHILS # (AUTO) 0.1 K/uL (0.0-0.4); EOSINOPHILS % (AUTO) 0.7 % (0.0-4.0); HEMATOCRIT 44.4 % (36-48); HEMOGLOBIN 14.2 g/dL (12.0-16.0); LYMPHOCYTES # (AUTO) 2.3 K/uL (1.0-5.5); LYMPHOCYTES % (AUTO) 19.1 % (20.5-51.5); MEAN CORPUSCULAR HEMOGLOBIN 27 pg (27-31); MEAN CORPUSCULAR HGB CONC 32 % (32-36); MEAN CORPUSCULAR VOLUME 83 fL (79.0-98.0); MONOCYTES # (AUTO) 0.5 K/uL (0.0-1.0); MONOCYTES % (AUTO) 4.2 % (1.7-9.3); NEUTROPHILS % (AUTO) 75.1 % (40.0-70.0); PLATELET COUNT (AUTO) 452 K/uL (130-430); RED BLOOD CELL COUNT(AUTO) 5.38 MIL/uL (4.2-6.2); RED CELL DISTRIBUTION WIDTH 15.7 % (9.0-15.0); WHITE BLOOD COUNT (AUTO) 11.9 K/uL (4.8-10.8)
[2019-03-28 16:48] LABS: CALCIUM 10.5 mg/dL (8.4-11.0); CREATININE 1.19 mg/dL (0.55-1.30); POTASSIUM 4.3 mmol/L (3.5-5.1)
[2019-03-28 16:55] LABS: TOTAL IRON BIND. CAPACITY 523 ug/dL (250-450)
== END 2019-03-28 20:29 | disposition home or self-care (01) ==
LOC: SLB 15:47
PROVIDERS: ATTEND Internal Medicine
DX: K52.3 Indeterminate colitis (principal); E03.9 Hypothyroidism, unspecified; I10 Essential (primary) hypertension
CPT/HCPCS: 36415; 80048; 83540-TC; 83550-TC; 83735-TC; 85025

== ENCOUNTER 2019-03-28 16:13 | Emergency (ER) | payer OTHER ==
[~2019-03-28] VITALS: Ht 162.6 cm; Wt 109.3 kg
[2019-03-28 16:23] VITALS: BP_SYST 96
[2019-03-28] MEDS ORDERED: MORPHINE 4 MG/ML INJ. SYRINGE IM ONE (17:00)
[2019-03-28] MEDS ORDERED: DIPHENHYDRAMINE HCL 25 MG CAPSULE PO ONE (17:00)
[2019-03-28] MEDS ORDERED: NACL 0.9% 1,000 ML IV ONE (17:00)
[2019-03-28] MEDS ORDERED: MORPHINE 4 MG/ML INJ. SYRINGE IVP ONE (17:00)
[2019-03-28] MEDS ORDERED: DIPHENHYDRAMINE INJ 50 MG/ML VIAL IVP ONE (17:00)
[2019-03-28] MEDS ORDERED: LORazepam 1 MG TABLET PO ONE (17:00)
[2019-03-28 18:18] VITALS: BP_SYST 96
== END 2019-03-28 18:11 | disposition home or self-care (01) ==
LOC: SED 16:13
DX: G89.29 Other chronic pain (principal); M79.18 Myalgia, other site; I10 Essential (primary) hypertension; F41.9 Anxiety disorder, unspecified; Z90.710 Acquired absence of both cervix and uterus; Z88.0 Allergy status to penicillin; Z91.018 Allergy to other foods; Z79.899 Other long term (current) drug therapy
CPT/HCPCS: 96372; 99283; J2270; Q0163

== ENCOUNTER 2019-04-04 20:38 | Emergency (ER) | payer OTHER ==
[~2019-04-04] VITALS: Ht 162.6 cm; Wt 106.6 kg
[2019-04-04 20:57] VITALS: BP_SYST 117
--- NOTE | 2019-04-04 23:44 | NUR ---
Patient to ER bed 4 to gown for evaluation. Side rails up. Report given to YENY HUNG.
--- NOTE | 2019-04-04 23:44 | NUR ---
Pt c/o leg cramping that onset at 19:30 while at a restaurant. 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
--- NOTE | 2019-04-05 | NUR ---
Dr. Stephens at bedside.
[2019-04-05] MEDS ORDERED: NACL 0.9% 1,000 ML IV ONE (00:16)
[2019-04-05] MEDS ORDERED: MORPHINE 4 MG/ML INJ. SYRINGE IVP ONE ×2 (00:30→04:00)
[2019-04-05] MEDS ORDERED: ONDANSETRON HCL 4 MG/2 ML VIAL IVP ONE (00:30)
[2019-04-05 00:43] LABS: HEMOGLOBIN 12.6 g/dL (12.0-16.0); MONOCYTES # (AUTO) 0.9 K/uL (0.0-1.0)
[2019-04-05 00:52] LABS: BASOPHILS # (AUTO) 0.2 K/uL (0.0-0.2); BASOPHILS % (AUTO) 1.2 % (0.0-2.0); EOSINOPHILS # (AUTO) 0.1 K/uL (0.0-0.4); EOSINOPHILS % (AUTO) 0.7 % (0.0-4.0); HEMATOCRIT 38.7 % (36-48); LYMPHOCYTES # (AUTO) 4.1 K/uL (1.0-5.5); LYMPHOCYTES % (AUTO) 25.9 % (20.5-51.5); MEAN CORPUSCULAR HEMOGLOBIN 27 pg (27-31); MEAN CORPUSCULAR HGB CONC 33 % (32-36); MEAN CORPUSCULAR VOLUME 83 fL (79.0-98.0); MONOCYTES % (AUTO) 5.6 % (1.7-9.3); NEUTROPHILS # (AUTO) 10.6 K/uL (1.8-7.7); NEUTROPHILS % (AUTO) 66.6 % (40.0-70.0); PLATELET COUNT (AUTO) 452 K/uL (130-430); RED BLOOD CELL COUNT(AUTO) 4.68 MIL/uL (4.2-6.2); RED CELL DISTRIBUTION WIDTH 15.7 % (9.0-15.0)
[2019-04-05] MEDS ORDERED: DIPHENHYDRAMINE INJ 50 MG/ML VIAL ONE (00:52)
[2019-04-05 01:00] LABS: CALCIUM 9.5 mg/dL (8.4-11.0); CREATININE 1.19 mg/dL (0.55-1.30); POTASSIUM 3.6 mmol/L (3.5-5.1)
[2019-04-05] MEDS ORDERED: DIPHENHYDRAMINE INJ 50 MG/ML VIAL IVP ONE ×2 (01:00→04:00)
[2019-04-05 01:04] LABS: ALBUMIN 3.7 g/dL (3.4-4.8); TOTAL BILIRUBIN 0.4 mg/dL (0.0-1.0)
[2019-04-05] MEDS ORDERED: MAGNESIUM SULFATE 4 GM in D5W 250 ML IV ONE (02:00)
[2019-04-05] MEDS ORDERED: MAGNESIUM SULFATE 1 GM/2 ML VIAL ONE (02:37)
--- NOTE | 2019-04-05 03:00 | NUR ---
Magnesium Sulfate continues to infuse without difficulty to patent PIV RAC, no s/s infiltration. VSS.
--- NOTE | 2019-04-05 04:10 | NUR ---
Pt states that leg cramping has returned. Dr. Stephens notified. Pt to be medicated.
--- NOTE | 2019-04-05 04:45 | NUR ---
Pt comes to nurses station, ambulatory with steady gait, requesting to use the phone to call for a ride. Verbalizes improvement in pain. MARTY.
[2019-04-05 04:55] VITALS: BP_SYST 122
--- NOTE | 2019-04-05 04:55 | NUR ---
Patient given written and verbal discharge instructions and verbalizes understanding. ER MD discussed with patient the results and treatment provided. Patient in stable condition. ID arm band removed. IV catheter removed intact and dressing applied, no active bleeding. No Rx given. Patient educated on pain management and to follow up with PMD. Pain Scale 3/10. Opportunity for questions provided and answered. Medication side effect fact sheet provided.
== END 2019-04-05 04:55 | disposition home or self-care (01) ==
LOC: SED 20:38
DX: E83.42 Hypomagnesemia (principal); N25.89 Other disorders resulting from impaired renal tubular function; I10 Essential (primary) hypertension; F41.9 Anxiety disorder, unspecified; M79.7 Fibromyalgia; Z88.0 Allergy status to penicillin; Z91.018 Allergy to other foods; Z79.899 Other long term (current) drug therapy
CPT/HCPCS: 36415; 80053; 83735; 85025; 96361; 96365; 96366; 96375; 96376; 99284; J1200; J2270; J2405; J3475; J7030

== ENCOUNTER 2019-04-08 17:16 | Emergency (ER) | payer OTHER ==
[~2019-04-08] VITALS: Ht 162.6 cm; Wt 106.6 kg
[2019-04-08 17:42] VITALS: BP_SYST 113
--- NOTE | 2019-04-08 17:46 | NUR ---
Patient triaged and placed in waiting room. VSS and patient appears in no acute distress at this time. Accompanied by DAUGHTER, awaiting available bed, and MD notified of need for MSE.
[2019-04-08 18:49] LABS: BASOPHILS # (AUTO) 0.1 K/uL (0.0-0.2); BASOPHILS % (AUTO) 0.9 % (0.0-2.0); EOSINOPHILS # (AUTO) 0.2 K/uL (0.0-0.4); EOSINOPHILS % (AUTO) 1.2 % (0.0-4.0); HEMATOCRIT 38.2 % (36-48); HEMOGLOBIN 12.3 g/dL (12.0-16.0); LYMPHOCYTES # (AUTO) 3.7 K/uL (1.0-5.5); LYMPHOCYTES % (AUTO) 25.5 % (20.5-51.5); MEAN CORPUSCULAR HEMOGLOBIN 26 pg (27-31); MEAN CORPUSCULAR HGB CONC 32 % (32-36); MEAN CORPUSCULAR VOLUME 82 fL (79.0-98.0); MONOCYTES # (AUTO) 0.6 K/uL (0.0-1.0); MONOCYTES % (AUTO) 4.3 % (1.7-9.3); NEUTROPHILS # (AUTO) 9.8 K/uL (1.8-7.7); NEUTROPHILS % (AUTO) 68.1 % (40.0-70.0); PLATELET COUNT (AUTO) 431 K/uL (130-430); RED BLOOD CELL COUNT(AUTO) 4.66 MIL/uL (4.2-6.2); RED CELL DISTRIBUTION WIDTH 15.7 % (9.0-15.0); WHITE BLOOD COUNT (AUTO) 14.4 K/uL (4.8-10.8)
[2019-04-08 19:02] LABS: CALCIUM 9.3 mg/dL (8.4-11.0); CREATININE 0.95 mg/dL (0.55-1.30); POTASSIUM 3.6 mmol/L (3.5-5.1)
[2019-04-08 19:07] LABS: ALBUMIN 3.7 g/dL (3.4-4.8); TOTAL BILIRUBIN 0.3 mg/dL (0.0-1.0)
[2019-04-08] MEDS ORDERED: MAGNESIUM SULFATE 3 GM in D5W 100 ML IV ONE (19:45)
--- NOTE | 2019-04-08 19:46 | NUR ---
Pt wheeled to bed 5 for evaluation
[2019-04-08] MEDS ORDERED: KETOROLAC TROMETHAMINE 30 MG VIAL IVP ONE (20:00)
--- NOTE | 2019-04-08 20:00 | NUR ---
Pt came to the ED with complaints of nausea, vomtiing, and lower extremity cramping. Reports she wanted her magnesium level checked. Denies n/v/d or fever. No other complaints/injuries noted. Will cont. to monitor.
[2019-04-08] MEDS ORDERED: DIPHENHYDRAMINE INJ 50 MG/ML VIAL IVP ONE (20:30)
--- NOTE | 2019-04-08 20:30 | NUR ---
ER at bedside examining patient.
[2019-04-08] MEDS ORDERED: MORPHINE 4 MG/ML INJ. SYRINGE IVP ONE (21:30)
--- NOTE | 2019-04-08 21:30 | NUR ---
Pt resting comfortably in bed, no signs of acute distress. Will cont. to monitor.
[2019-04-08] MEDS ORDERED: MAGNESIUM SULFATE 50 ML IV ONE (21:32)
[2019-04-08] MEDS ORDERED: MAGNESIUM SULFATE/D5W 100 ML IV ONE (21:33)
--- NOTE | 2019-04-08 22:30 | NUR ---
Pt resting comfortably in bed, no signs of acute distress. Will cont. to monitor.
[2019-04-09 00:17] VITALS: BP_SYST 113
--- NOTE | 2019-04-09 00:17 | NUR ---
Patient given written and verbal discharge instructions and verbalizes understanding. ER MD Dr. Canales discussed with patient the results and treatment provided. Patient in stable condition. ID arm band removed. IV catheter removed intact and dressing applied, no active bleeding. Patient educated on pain management and to follow up with PMD. Pain Scale 0/10. Opportunity for questions provided and answered. Medication side effect fact sheet provided.
== END 2019-04-09 00:17 | disposition home or self-care (01) ==
LOC: SED 17:16
DX: E83.42 Hypomagnesemia (principal); I10 Essential (primary) hypertension; Z88.0 Allergy status to penicillin; Z91.018 Allergy to other foods; Z79.899 Other long term (current) drug therapy
CPT/HCPCS: 36415; 80053; 83735; 85025; 96365; 96375; 99283; J1200; J1885; J2270; J3475

== ENCOUNTER 2019-04-13 16:19 | Emergency (ER) | payer OTHER ==
[~2019-04-13] VITALS: Ht 162.6 cm; Wt 104.3 kg
[2019-04-13 16:33] VITALS: BP_SYST 113
[2019-04-13 17:27] LABS: BASOPHILS # (AUTO) 0.1 K/uL (0.0-0.2); BASOPHILS % (AUTO) 1.2 % (0.0-2.0); EOSINOPHILS # (AUTO) 0.1 K/uL (0.0-0.4); EOSINOPHILS % (AUTO) 0.9 % (0.0-4.0); HEMATOCRIT 38.8 % (36-48); HEMOGLOBIN 12.3 g/dL (12.0-16.0); LYMPHOCYTES # (AUTO) 2.4 K/uL (1.0-5.5); LYMPHOCYTES % (AUTO) 20.8 % (20.5-51.5); MEAN CORPUSCULAR HEMOGLOBIN 26 pg (27-31); MEAN CORPUSCULAR HGB CONC 32 % (32-36); MEAN CORPUSCULAR VOLUME 82 fL (79.0-98.0); MONOCYTES # (AUTO) 0.5 K/uL (0.0-1.0); MONOCYTES % (AUTO) 4.2 % (1.7-9.3); NEUTROPHILS # (AUTO) 8.3 K/uL (1.8-7.7); NEUTROPHILS % (AUTO) 72.9 % (40.0-70.0); PLATELET COUNT (AUTO) 438 K/uL (130-430); RED BLOOD CELL COUNT(AUTO) 4.75 MIL/uL (4.2-6.2); RED CELL DISTRIBUTION WIDTH 15.8 % (9.0-15.0); WHITE BLOOD COUNT (AUTO) 11.4 K/uL (4.8-10.8)
[2019-04-13 17:50] LABS: CALCIUM 9.6 mg/dL (8.4-11.0); CREATININE 1.05 mg/dL (0.55-1.30); POTASSIUM 4.1 mmol/L (3.5-5.1)
[2019-04-13 17:56] LABS: TOTAL BILIRUBIN 0.5 mg/dL (0.0-1.0)
[2019-04-13] MEDS ORDERED: ONDANSETRON HCL 4 MG/5 ML UDC PO ONE (18:00)
[2019-04-13] MEDS ORDERED: NACL 0.9% 1,000 ML IV ONE (18:00)
[2019-04-13] MEDS ORDERED: MORPHINE 4 MG/ML INJ. SYRINGE IVP ONE (18:00)
[2019-04-13] MEDS ORDERED: MAGNESIUM SULFATE 50 ML IV ONE (18:15)
[2019-04-13] MEDS ORDERED: DIPHENHYDRAMINE INJ 50 MG/ML VIAL IVP ONE (18:30)
[2019-04-13] MEDS ORDERED: MAGNESIUM SULFATE 4 GM in D5W 250 ML IV ONE (18:45)
[2019-04-13] MEDS ORDERED: MAGNESIUM SULFATE 1 GM/2 ML VIAL ONE (19:03)
[2019-04-13 21:00] VITALS: BP_SYST 116
== END 2019-04-13 21:00 | disposition home or self-care (01) ==
LOC: SED 16:19
DX: E86.0 Dehydration (principal); E83.42 Hypomagnesemia; N15.8 Other specified renal tubulo-interstitial diseases; I10 Essential (primary) hypertension; F41.9 Anxiety disorder, unspecified; M79.7 Fibromyalgia; Z88.0 Allergy status to penicillin; Z91.018 Allergy to other foods; Z79.899 Other long term (current) drug therapy
CPT/HCPCS: 36415; 80053; 83735; 85025; 93005; 96361; 96365; 96366; 96375; 99284; J1200; J2270; J3475; J7030; Q0162

== ENCOUNTER 2019-04-19 14:02 | Emergency (ER) | payer OTHER ==
[~2019-04-19] VITALS: Ht 162.6 cm; Wt 108.9 kg
[2019-04-19 14:11] VITALS: BP_SYST 119
[2019-04-19 15:00] LABS: CALCIUM 9.2 mg/dL (8.4-11.0); CREATININE 1.14 mg/dL (0.55-1.30); POTASSIUM 3.6 mmol/L (3.5-5.1)
[2019-04-19 15:05] LABS: ALBUMIN 3.7 g/dL (3.4-4.8); PHOSPHORUS 3.1 mg/dL (2.7-4.5); TOTAL BILIRUBIN 0.4 mg/dL (0.0-1.0)
[2019-04-19] MEDS ORDERED: MORPHINE 4 MG/ML INJ. SYRINGE IVP ONE (15:15)
[2019-04-19] MEDS ORDERED: DIPHENHYDRAMINE INJ 50 MG/ML VIAL IVP ONE ×2 (15:15→16:30)
[2019-04-19] MEDS ORDERED: NACL 0.9% 1,000 ML IV ONE (15:15)
[2019-04-19] MEDS ORDERED: MAGNESIUM SULFATE 50 ML IV ONE ×2 (15:15→15:45)
[2019-04-19] MEDS ORDERED: METOCLOPRAMIDE HCL 10 MG/2 ML VIAL IVP ONE (16:30)
[2019-04-19 17:52] VITALS: BP_SYST 121
== END 2019-04-19 17:52 | disposition home or self-care (01) ==
LOC: SED 14:02
DX: E83.42 Hypomagnesemia (principal); M79.604 Pain in right leg; M79.605 Pain in left leg; I10 Essential (primary) hypertension; F41.9 Anxiety disorder, unspecified; Z90.89 Acquired absence of other organs; Z88.0 Allergy status to penicillin; Z91.018 Allergy to other foods; Z79.899 Other long term (current) drug therapy
CPT/HCPCS: 36415; 80053; 83735; 84100; 84703; 96365; 96375; 96376; 99284; J1200; J2270; J2765; J3475; J7030

== ENCOUNTER 2019-04-23 16:00 | Emergency (ER) | payer OTHER ==
[~2019-04-23] VITALS: Ht 162.6 cm; Wt 108.9 kg
[2019-04-23 16:51] VITALS: BP_SYST 115
[2019-04-23] MEDS ORDERED: NACL 0.9% 1,000 ML IV ONE (18:31)
[2019-04-23] MEDS ORDERED: MORPHINE 4 MG/ML INJ. SYRINGE IVP ONE ×2 (19:00→20:45)
[2019-04-23] MEDS ORDERED: DIPHENHYDRAMINE INJ 50 MG/ML VIAL IVP ONE ×2 (19:00→20:45)
[2019-04-23] MEDS ORDERED: ONDANSETRON HCL 4 MG/2 ML VIAL IVP ONE ×2 (19:00→20:45)
--- NOTE | 2019-04-23 19:00 | NUR ---
Patient to ER bed 03 to gown for evaluation. Side rails up.
--- NOTE | 2019-04-23 19:00 | NUR ---
patient arrived AOx4 with c/o bilateral knee pain 06/16. patient states she can't take the pain anymore and came into the hospital. patient states she wants morphine 4 and zofran now. patient is crying in tears. patient provided urine.
[2019-04-23 19:01] LABS: BASOPHILS # (AUTO) 0.2 K/uL (0.0-0.2); BASOPHILS % (AUTO) 1.4 % (0.0-2.0); EOSINOPHILS # (AUTO) 0.3 K/uL (0.0-0.4); EOSINOPHILS % (AUTO) 2.3 % (0.0-4.0); HEMATOCRIT 35.2 % (36-48); HEMOGLOBIN 11.2 g/dL (12.0-16.0); LYMPHOCYTES # (AUTO) 3.5 K/uL (1.0-5.5); LYMPHOCYTES % (AUTO) 28.1 % (20.5-51.5); MEAN CORPUSCULAR HEMOGLOBIN 26 pg (27-31); MEAN CORPUSCULAR HGB CONC 32 % (32-36); MEAN CORPUSCULAR VOLUME 82 fL (79.0-98.0); MONOCYTES # (AUTO) 0.8 K/uL (0.0-1.0); MONOCYTES % (AUTO) 6.5 % (1.7-9.3); NEUTROPHILS # (AUTO) 7.6 K/uL (1.8-7.7); NEUTROPHILS % (AUTO) 61.7 % (40.0-70.0); PLATELET COUNT (AUTO) 428 K/uL (130-430); RED BLOOD CELL COUNT(AUTO) 4.28 MIL/uL (4.2-6.2); RED CELL DISTRIBUTION WIDTH 15.9 % (9.0-15.0); WHITE BLOOD COUNT (AUTO) 12.3 K/uL (4.8-10.8)
--- NOTE | 2019-04-23 19:02 | NUR ---
ER at bedside examining patient.
--- NOTE | 2019-04-23 19:02 | NUR ---
ER at bedside examining patient.
[2019-04-23 19:10] LABS: CALCIUM 9.3 mg/dL (8.4-11.0); CREATININE 1.04 mg/dL (0.55-1.30); POTASSIUM 4.1 mmol/L (3.5-5.1)
[2019-04-23 19:16] LABS: INR 0.9 (0.8-1.2); PROTHROMBIN TIME 9.3 SECS (9.5-12.5)
[2019-04-23 19:17] LABS: ALBUMIN 3.8 g/dL (3.4-4.8); TOTAL BILIRUBIN 0.4 mg/dL (0.0-1.0)
--- NOTE | 2019-04-23 20:00 | NUR ---
patient crying in pain. md notified
[2019-04-23 20:42] LABS: BILIRUBIN,URINE NEGATIVE (NEGATIVE); BLOOD, URINE NEGATIVE (NEGATIVE); CLARITY/URINE CLEAR (CLEAR); COLOR,URINE YELLOW (YELLOW); GLUCOSE,URINE NEGATIVE (NEGATIVE); KETONES,URINE NEGATIVE (NEGATIVE); LEUKOCYTE ESTERASE ,URINE NEGATIVE (NEGATIVE); NITRITE, URINE NEGATIVE (NEGATIVE); PH,URINE 5.5 (5.0-8.0); PROTEIN URINE NEGATIVE (NEGATIVE); UROBILINOGEN,URINE 0.2 (0.2-1.0)
--- NOTE | 2019-04-23 21:00 | NUR ---
ER at bedside examining patient.
[2019-04-23] MEDS ORDERED: DEXAMETHASONE SOD PHOSPHATE 10 MG/ML VIAL IVP ONE (21:45)
[2019-04-23 22:12] VITALS: BP_SYST 122
--- NOTE | 2019-04-23 22:12 | NUR ---
Patient given written and verbal discharge instructions and verbalizes understanding. ER MD discussed with patient the results and treatment provided. Patient in stable condition. ID arm band removed. IV catheter removed intact and dressing applied, no active bleeding. Rx of zero given. Patient educated on pain management and to follow up with PMD. Pain Scale 7/10 but tolerable Opportunity for questions provided and answered. Medication side effect fact sheet provided.
== END 2019-04-23 22:12 | disposition home or self-care (01) ==
LOC: SED 16:00
DX: M25.561 Pain in right knee (principal); M25.562 Pain in left knee; I10 Essential (primary) hypertension; F41.9 Anxiety disorder, unspecified; Z88.0 Allergy status to penicillin; Z91.018 Allergy to other foods; Z79.899 Other long term (current) drug therapy
CPT/HCPCS: 36415; 80053; 81003; 82150-TC; 82550-TC; 83605; 83690-TC; 83735-TC; 83880; 85025; 85610-TC; 85730-TC; 87040-TC; 93005; 96374; 96375; 96376; 99284; J1100; J1200; J2270; J2405; J7030

== ENCOUNTER 2019-04-26 19:21 | Emergency (ER) | payer OTHER ==
[~2019-04-26] VITALS: Ht 165.1 cm; Wt 99.8 kg
[2019-04-26] MEDS ORDERED: NACL 0.9% 1,000 ML IV ONE (19:54)
[2019-04-26] MEDS ORDERED: DIPHENHYDRAMINE INJ 50 MG/ML VIAL IVP ONE ×2 (20:00→23:30)
[2019-04-26] MEDS ORDERED: MORPHINE 4 MG/ML INJ. SYRINGE IVP ONE ×2 (20:00→23:15)
[2019-04-26] MEDS ORDERED: ASPIRIN 81 MG TAB.CHEW PO ONE (20:00)
[2019-04-26 20:10] VITALS: BP_SYST 128
--- NOTE | 2019-04-26 20:10 | NUR ---
Patient to ER bed 05 to gown for evaluation. Side rails up. Report given to ABHILASH Andino.
--- NOTE | 2019-04-26 20:11 | NUR ---
Patient complaining of chest pain with shortness of breath today. Patient also complaining of abdominal pain 10/10 with diarrhea, nausea and vomiting today. Patient also complaining of leg cramping as well. No other complaints/injuries per patient or as noted. Will continue to monitor.
--- NOTE | 2019-04-26 20:12 | NUR ---
ER Dr. Perdomo at bedside examining patient.
[2019-04-26 20:30] LABS: BASOPHILS # (AUTO) 0.2 K/uL (0.0-0.2); BASOPHILS % (AUTO) 0.9 % (0.0-2.0); EOSINOPHILS # (AUTO) 0.1 K/uL (0.0-0.4); EOSINOPHILS % (AUTO) 0.7 % (0.0-4.0); HEMOGLOBIN 13.3 g/dL (12.0-16.0); LYMPHOCYTES # (AUTO) 4.5 K/uL (1.0-5.5); LYMPHOCYTES % (AUTO) 24.6 % (20.5-51.5); MEAN CORPUSCULAR HEMOGLOBIN 26 pg (27-31); MEAN CORPUSCULAR HGB CONC 32 % (32-36); MEAN CORPUSCULAR VOLUME 82 fL (79.0-98.0); MONOCYTES # (AUTO) 0.9 K/uL (0.0-1.0); MONOCYTES % (AUTO) 5.1 % (1.7-9.3); NEUTROPHILS # (AUTO) 12.5 K/uL (1.8-7.7); NEUTROPHILS % (AUTO) 68.7 % (40.0-70.0); PLATELET COUNT (AUTO) 329 K/uL (130-430); RED BLOOD CELL COUNT(AUTO) 5.12 MIL/uL (4.2-6.2); RED CELL DISTRIBUTION WIDTH 15.9 % (9.0-15.0); WHITE BLOOD COUNT (AUTO) 18.2 K/uL (4.8-10.8)
[2019-04-26 20:46] LABS: PROTHROMBIN TIME 9.9 SECS (9.5-12.5)
[2019-04-26 20:49] LABS: CALCIUM 9.7 mg/dL (8.4-11.0); CREATININE 1.19 mg/dL (0.55-1.30); POTASSIUM 4.2 mmol/L (3.5-5.1)
[2019-04-26 20:52] LABS: ALBUMIN 4.1 g/dL (3.4-4.8); TOTAL BILIRUBIN 0.7 mg/dL (0.0-1.0); URIC ACID 4.9 mg/dL (2.4-7.0)
[2019-04-26 20:54] LABS: BILIRUBIN,URINE NEGATIVE (NEGATIVE); BLOOD, URINE NEGATIVE (NEGATIVE); CLARITY/URINE CLEAR (CLEAR); COLOR,URINE YELLOW (YELLOW); GLUCOSE,URINE NEGATIVE (NEGATIVE); KETONES,URINE NEGATIVE (NEGATIVE); LEUKOCYTE ESTERASE ,URINE NEGATIVE (NEGATIVE); NITRITE, URINE NEGATIVE (NEGATIVE); PROTEIN URINE NEGATIVE (NEGATIVE); UROBILINOGEN,URINE 0.2 (0.2-1.0)
[2019-04-26] MEDS ORDERED: MAGNESIUM SULFATE 50 ML IV ONE (21:45)
[2019-04-26] MEDS ORDERED: cefTRIAXone 1 GM IVPB PREMIX 50 ML IV ONE (21:45)
--- NOTE | 2019-04-26 22:22 | NUR ---
IV line infiltrated on RAC. 20G IV to LAC. Patient tolerated well. Addendum: 04/26/19 at 2222 by [email or web address] IV removed intact. Pressure applied. Will continue to monitor.
[2019-04-26] MEDS ORDERED: ONDANSETRON HCL 4 MG/2 ML VIAL IVP ONE ×2 (22:30→23:15)
[2019-04-26 23:37] VITALS: BP_SYST 126
--- NOTE | 2019-04-26 23:37 | NUR ---
Patient given written and verbal discharge instructions and verbalizes understanding. ER MD Perdomo discussed with patient the results and treatment provided. Patient in stable condition. ID arm band removed. IV catheter removed intact and dressing applied, no active bleeding. No Rx given. Patient educated on pain management and to follow up with PMD. Pain Scale 0/10 Opportunity for questions provided and answered. Medication side effect fact sheet provided.
== END 2019-04-26 23:37 | disposition home or self-care (01) ==
LOC: SED 19:21
DX: K52.9 Noninfective gastroenteritis and colitis, unspecified (principal); R07.89 Other chest pain; M25.561 Pain in right knee; M25.562 Pain in left knee; Z76.5 Malingerer [conscious simulation]; I10 Essential (primary) hypertension; M79.7 Fibromyalgia; F41.9 Anxiety disorder, unspecified; E83.42 Hypomagnesemia; Z88.0 Allergy status to penicillin; Z91.018 Allergy to other foods; Z79.899 Other long term (current) drug therapy
CPT/HCPCS: 36415; 71045; 80053; 81003; 82550; 83605; 83690; 83735; 84484; 84550; 85025; 85610; 85730; 87040; 93005; 96361; 96365; 96366; 96368; 96375; 96376; 99284; J0696; J1200; J2270; J2405; J3475; J7030

== ENCOUNTER 2019-04-29 20:13 | Emergency (ER) | payer OTHER ==
[~2019-04-29] VITALS: Ht 162.6 cm; Wt 108.9 kg
[2019-04-29 20:15] VITALS: BP_SYST 121
--- NOTE | 2019-04-29 20:15 | NUR ---
Patient triaged and placed in waiting room. VSS and patient appears in no acute distress at this time. Accompanied by FAM MEMBER, awaiting available bed, and MD notified of need for MSE.
[2019-04-29 20:42] LABS: BASOPHILS # (AUTO) 0.1 K/uL (0.0-0.2); BASOPHILS % (AUTO) 1.1 % (0.0-2.0); EOSINOPHILS # (AUTO) 0.2 K/uL (0.0-0.4); EOSINOPHILS % (AUTO) 1.5 % (0.0-4.0); HEMATOCRIT 37.8 % (36-48); HEMOGLOBIN 12.3 g/dL (12.0-16.0); LYMPHOCYTES # (AUTO) 3.3 K/uL (1.0-5.5); LYMPHOCYTES % (AUTO) 24.2 % (20.5-51.5); MEAN CORPUSCULAR HEMOGLOBIN 26 pg (27-31); MEAN CORPUSCULAR HGB CONC 32 % (32-36); MEAN CORPUSCULAR VOLUME 81 fL (79.0-98.0); MONOCYTES # (AUTO) 0.8 K/uL (0.0-1.0); MONOCYTES % (AUTO) 5.9 % (1.7-9.3); NEUTROPHILS # (AUTO) 9.2 K/uL (1.8-7.7); NEUTROPHILS % (AUTO) 67.3 % (40.0-70.0); PLATELET COUNT (AUTO) 444 K/uL (130-430); RED CELL DISTRIBUTION WIDTH 15.5 % (9.0-15.0); WHITE BLOOD COUNT (AUTO) 13.7 K/uL (4.8-10.8)
[2019-04-29 20:51] LABS: CALCIUM 9.2 mg/dL (8.4-11.0); CREATININE 1.12 mg/dL (0.55-1.30); POTASSIUM 3.3 mmol/L (3.5-5.1)
[2019-04-29 21:01] LABS: ALBUMIN 3.7 g/dL (3.4-4.8); TOTAL BILIRUBIN 0.3 mg/dL (0.0-1.0)
[2019-04-29] MEDS ORDERED: NACL 0.9% 1,000 ML IV ONE (22:15)
[2019-04-29] MEDS ORDERED: KETOROLAC TROMETHAMINE 30 MG VIAL IVP ONE (22:15)
[2019-04-29] MEDS ORDERED: MAGNESIUM SULFATE 50 ML IV ONE ×2 (22:15→22:45)
--- NOTE | 2019-04-29 22:16 | NUR ---
Pt c/o Left knee pain that progressively worsened since this AM. Denies trauma or injury to site.
--- NOTE | 2019-04-29 22:16 | NUR ---
Patient to ER bed 5 to gown for evaluation. Side rails up. Report given to YENY HUNG.
[2019-04-29] MEDS ORDERED: DIPHENHYDRAMINE INJ 50 MG/ML VIAL IVP ONE (22:45)
[2019-04-29] MEDS ORDERED: MORPHINE 4 MG/ML INJ. SYRINGE IVP ONE (22:45)
--- NOTE | 2019-04-29 23:08 | NUR ---
Pt c/o Leg pain and requests more pain medication. Dr. Brito notified.
--- NOTE | 2019-04-29 23:30 | NUR ---
Dr. Brito at bedside.
[2019-04-29] MEDS ORDERED: DEXAMETHASONE SOD PHOSPHATE 10 MG/ML VIAL IVP ONE (23:45)
[2019-04-30 00:20] VITALS: BP_SYST 126
--- NOTE | 2019-04-30 00:20 | NUR ---
Patient given written and verbal discharge instructions and verbalizes understanding. ER MD discussed with patient the results and treatment provided. Patient in stable condition. ID arm band removed. IV catheter removed intact and dressing applied, no active bleeding. No Rx given. Patient educated on pain management and to follow up with PMD. Pain Scale 0/10. Opportunity for questions provided and answered. Medication side effect fact sheet provided.
== END 2019-04-30 00:20 | disposition home or self-care (01) ==
LOC: SED 20:13
DX: M25.562 Pain in left knee (principal); E83.42 Hypomagnesemia; I10 Essential (primary) hypertension; F41.9 Anxiety disorder, unspecified; M79.7 Fibromyalgia; Z88.0 Allergy status to penicillin; Z91.018 Allergy to other foods; Z79.899 Other long term (current) drug therapy
CPT/HCPCS: 36415; 80053; 83735; 85025; 96365; 96375; 99283; J1100; J1200; J1885; J2270; J3475; J7030

== ENCOUNTER 2019-05-04 16:45 | Emergency (ER) | payer OTHER ==
[~2019-05-04] VITALS: Ht 162.6 cm; Wt 108.9 kg
[2019-05-04 16:52] VITALS: BP_SYST 107
[2019-05-04 17:46] LABS: BASOPHILS # (AUTO) 0.1 K/uL (0.0-0.2); BASOPHILS % (AUTO) 0.8 % (0.0-2.0); EOSINOPHILS # (AUTO) 0.1 K/uL (0.0-0.4); EOSINOPHILS % (AUTO) 0.6 % (0.0-4.0); LYMPHOCYTES % (AUTO) 18.2 % (20.5-51.5); MEAN CORPUSCULAR HEMOGLOBIN 26 pg (27-31); MEAN CORPUSCULAR HGB CONC 32 % (32-36); MEAN CORPUSCULAR VOLUME 80 fL (79.0-98.0); MONOCYTES # (AUTO) 0.9 K/uL (0.0-1.0); MONOCYTES % (AUTO) 5.4 % (1.7-9.3); NEUTROPHILS # (AUTO) 12.6 K/uL (1.8-7.7); PLATELET COUNT (AUTO) 430 K/uL (130-430); RED BLOOD CELL COUNT(AUTO) 5.02 MIL/uL (4.2-6.2); RED CELL DISTRIBUTION WIDTH 15.9 % (9.0-15.0); WHITE BLOOD COUNT (AUTO) 16.8 K/uL (4.8-10.8)
[2019-05-04 17:51] LABS: CALCIUM 9.1 mg/dL (8.4-11.0); CREATININE 1.22 mg/dL (0.55-1.30); POTASSIUM 3.5 mmol/L (3.5-5.1)
[2019-05-04 17:57] LABS: ALBUMIN 3.7 g/dL (3.4-4.8); TOTAL BILIRUBIN 0.8 mg/dL (0.0-1.0)
[2019-05-04] MEDS ORDERED: NACL 0.9% 1,000 ML IV ONE (18:15)
[2019-05-04] MEDS ORDERED: ONDANSETRON HCL 4 MG/2 ML VIAL IVP ONE (18:15)
[2019-05-04] MEDS ORDERED: MAGNESIUM SULFATE 4 GM in D5W 250 ML IV ONE (18:15)
[2019-05-04] MEDS ORDERED: MAGNESIUM SULFATE 1 GM/2 ML VIAL ONE (18:51)
[2019-05-04] MEDS ORDERED: MORPHINE 4 MG/ML INJ. SYRINGE IVP ONE (19:15)
[2019-05-04] MEDS ORDERED: DIPHENHYDRAMINE INJ 50 MG/ML VIAL IVP ONE (20:30)
[2019-05-04 22:28] VITALS: BP_SYST 105
== END 2019-05-04 22:28 | disposition home or self-care (01) ==
LOC: SED 16:45
DX: R19.7 Diarrhea, unspecified (principal); E83.42 Hypomagnesemia; G89.29 Other chronic pain; I10 Essential (primary) hypertension; Z90.710 Acquired absence of both cervix and uterus; Z79.899 Other long term (current) drug therapy; Z88.0 Allergy status to penicillin; Z91.018 Allergy to other foods
CPT/HCPCS: 36415; 80053; 83690; 83735; 85025; 96365; 96366; 96375; 99283; J1200; J2270; J2405; J3475; J7030

== ENCOUNTER 2019-05-09 20:12 | Emergency (ER) | payer OTHER ==
[~2019-05-09] VITALS: Ht 162.6 cm; Wt 108.9 kg
[2019-05-09 20:15] VITALS: BP_SYST 122
[2019-05-09] MEDS ORDERED: MORPHINE SULFATE 10 MG/ML VIAL IVP ONE ×2 (21:30→23:00)
[2019-05-09] MEDS ORDERED: NACL 0.9% 1,000 ML IV ONE (21:30)
[2019-05-09] MEDS ORDERED: ONDANSETRON HCL 4 MG/2 ML VIAL IVP ONE (21:30)
[2019-05-09] MEDS ORDERED: DIPHENHYDRAMINE INJ 50 MG/ML VIAL IVP ONE ×2 (21:30→23:45)
[2019-05-09] MEDS ORDERED: LORazepam 2 MG/ML VIAL IVP ONE (21:45)
[2019-05-09 22:22] LABS: BASOPHILS # (AUTO) 0.1 K/uL (0.0-0.2); BASOPHILS % (AUTO) 1.2 % (0.0-2.0); BILIRUBIN,URINE NEGATIVE (NEGATIVE); BLOOD, URINE NEGATIVE (NEGATIVE); CLARITY/URINE CLEAR (CLEAR); COLOR,URINE YELLOW (YELLOW); EOSINOPHILS # (AUTO) 0.1 K/uL (0.0-0.4); EOSINOPHILS % (AUTO) 0.8 % (0.0-4.0); GLUCOSE,URINE NEGATIVE (NEGATIVE); HEMATOCRIT 38.4 % (36-48); HEMOGLOBIN 12.3 g/dL (12.0-16.0); KETONES,URINE NEGATIVE (NEGATIVE); LEUKOCYTE ESTERASE ,URINE NEGATIVE (NEGATIVE); LYMPHOCYTES # (AUTO) 3.5 K/uL (1.0-5.5); LYMPHOCYTES % (AUTO) 31.9 % (20.5-51.5); MEAN CORPUSCULAR HEMOGLOBIN 26 pg (27-31); MEAN CORPUSCULAR HGB CONC 32 % (32-36); MEAN CORPUSCULAR VOLUME 81 fL (79.0-98.0); MONOCYTES # (AUTO) 0.7 K/uL (0.0-1.0); MONOCYTES % (AUTO) 6.1 % (1.7-9.3); NEUTROPHILS # (AUTO) 6.6 K/uL (1.8-7.7); NITRITE, URINE NEGATIVE (NEGATIVE); PH,URINE 6.5 (5.0-8.0); PLATELET COUNT (AUTO) 391 K/uL (130-430); PROTEIN URINE NEGATIVE (NEGATIVE); RED BLOOD CELL COUNT(AUTO) 4.72 MIL/uL (4.2-6.2); UROBILINOGEN,URINE 0.2 (0.2-1.0); WHITE BLOOD COUNT (AUTO) 11.1 K/uL (4.8-10.8)
[2019-05-09 22:32] LABS: CALCIUM 9.1 mg/dL (8.4-11.0); CREATININE 1.13 mg/dL (0.55-1.30); POTASSIUM 3.2 mmol/L (3.5-5.1)
[2019-05-09 22:37] LABS: ALBUMIN 3.8 g/dL (3.4-4.8); TOTAL BILIRUBIN 0.5 mg/dL (0.0-1.0)
[2019-05-09] MEDS ORDERED: POTASSIUM CHLORIDE 20 MEQ TAB.PRT.SR PO ONE (23:30)
[2019-05-09] MEDS ORDERED: MAGNESIUM SULFATE 50 ML IV ONE (23:30)
[2019-05-09] MEDS ORDERED: DIPHENHYDRAMINE INJ 50 MG/ML VIAL ONE (23:45)
[2019-05-09] MEDS ORDERED: MAGNESIUM SULFATE 4 GM in D5W 250 ML IV ONE (23:45)
[2019-05-10] MEDS ORDERED: MAGNESIUM SULFATE 1 GM/2 ML VIAL ONE (00:08)
[2019-05-10] MEDS ORDERED: POTASSIUM CHLORIDE 20 MEQ TAB.PRT.SR PO ONE (00:45)
[2019-05-10] MEDS ORDERED: DEXAMETHASONE SOD PHOSPHATE 4 MG/ML VIAL IVP ONE (02:00)
[2019-05-10] MEDS ORDERED: ONDANSETRON HCL 4 MG/2 ML VIAL IVP ONE (02:00)
[2019-05-10] MEDS ORDERED: POTASSIUM CHLORIDE 20 MEQ TAB.PRT.SR ONE (02:59)
[2019-05-10 03:01] VITALS: BP_SYST 117
== END 2019-05-10 03:01 | disposition home or self-care (01) ==
LOC: SED 20:12
DX: G89.29 Other chronic pain (principal); N15.8 Other specified renal tubulo-interstitial diseases
CPT/HCPCS: 36415; 80053; 81003; 83735; 85025; 87040; 96365; 96375 ×2; 96376 ×2; 99283; J1100; J1200; J2060; J2270; J2405 ×2; J3475; J7030

== ENCOUNTER 2019-05-11 16:29 | Emergency (ER) | payer OTHER ==
[~2019-05-11] VITALS: Ht 162.6 cm; Wt 108.9 kg
[2019-05-11 16:46] VITALS: BP_SYST 133
[2019-05-11 17:07] LABS: BASOPHILS # (AUTO) 0.1 K/uL (0.0-0.2); BASOPHILS % (AUTO) 0.9 % (0.0-2.0); EOSINOPHILS # (AUTO) 0.1 K/uL (0.0-0.4); EOSINOPHILS % (AUTO) 0.5 % (0.0-4.0); HEMATOCRIT 37.5 % (36-48); HEMOGLOBIN 11.8 g/dL (12.0-16.0); LYMPHOCYTES # (AUTO) 4.2 K/uL (1.0-5.5); LYMPHOCYTES % (AUTO) 33.2 % (20.5-51.5); MEAN CORPUSCULAR HEMOGLOBIN 26 pg (27-31); MEAN CORPUSCULAR HGB CONC 32 % (32-36); MEAN CORPUSCULAR VOLUME 81 fL (79.0-98.0); MONOCYTES # (AUTO) 0.6 K/uL (0.0-1.0); MONOCYTES % (AUTO) 4.6 % (1.7-9.3); NEUTROPHILS # (AUTO) 7.7 K/uL (1.8-7.7); NEUTROPHILS % (AUTO) 60.8 % (40.0-70.0); PLATELET COUNT (AUTO) 366 K/uL (130-430); RED BLOOD CELL COUNT(AUTO) 4.61 MIL/uL (4.2-6.2); RED CELL DISTRIBUTION WIDTH 16.5 % (9.0-15.0); WHITE BLOOD COUNT (AUTO) 12.7 K/uL (4.8-10.8)
[2019-05-11 17:28] LABS: CALCIUM 9.3 mg/dL (8.4-11.0); POTASSIUM 3.2 mmol/L (3.5-5.1)
[2019-05-11 17:34] LABS: ALBUMIN 3.8 g/dL (3.4-4.8); TOTAL BILIRUBIN 0.4 mg/dL (0.0-1.0)
--- NOTE | 2019-05-11 17:57 | NUR ---
BROUGHT BACK TO BED #6 VIA WHEELCHAIR, PLACED IN BED AND REPORT GIVEN TO SHIVAM
[2019-05-11] MEDS ORDERED: KETOROLAC TROMETHAMINE 60 MG/2 ML VIAL IM ONE (18:00)
[2019-05-11] MEDS ORDERED: POTASSIUM CHLORIDE 20 MEQ TAB.PRT.SR PO ONE (18:00)
--- NOTE | 2019-05-11 18:00 | NUR ---
Pt is here for c/o right knee pain, chronic. Pt states she takes 15mg morphine at home for her pain. Pt states she has chronic pain and swelling.
--- NOTE | 2019-05-11 18:03 | NUR ---
Dr. Brito at bedside to assess pt.
[2019-05-11] MEDS ORDERED: DEXAMETHASONE SOD PHOSPHATE 10 MG/ML VIAL IM ONE (18:30)
[2019-05-11 18:56] VITALS: BP_SYST 132
--- NOTE | 2019-05-11 18:56 | NUR ---
Patient given written and verbal discharge instructions and verbalizes understanding. ER MD discussed with patient the results and treatment provided. Patient in stable condition. ID arm band removed. Opportunity for questions provided and answered. Medication side effect fact sheet provided.
== END 2019-05-11 18:56 | disposition home or self-care (01) ==
LOC: SED 16:29
DX: M25.561 Pain in right knee (principal); M25.562 Pain in left knee; I10 Essential (primary) hypertension; Z90.710 Acquired absence of both cervix and uterus; Z88.0 Allergy status to penicillin; Z91.018 Allergy to other foods; Z79.899 Other long term (current) drug therapy
CPT/HCPCS: 36415; 80053; 83735; 85025; 96372; 99283; J1100; J1885

== ENCOUNTER 2019-05-14 23:57 | Emergency (ER) | payer OTHER ==
[~2019-05-14] VITALS: Ht 162.6 cm; Wt 108.9 kg
[2019-05-15] VITALS: BP_SYST 143
[2019-05-15] MEDS ORDERED: NACL 0.9% 1,000 ML IV ONE (00:09)
[2019-05-15] MEDS ORDERED: KETOROLAC TROMETHAMINE 30 MG VIAL IVP ONE (00:15)
[2019-05-15] MEDS ORDERED: ONDANSETRON HCL 4 MG/2 ML VIAL IVP ONE (00:15)
[2019-05-15 00:34] LABS: HEMATOCRIT 43.5 % (36-48); HEMOGLOBIN 14.1 g/dL (12.0-16.0); MEAN CORPUSCULAR HEMOGLOBIN 26 pg (27-31); MEAN CORPUSCULAR HGB CONC 32 % (32-36); MEAN CORPUSCULAR VOLUME 81 fL (79.0-98.0); PLATELET COUNT (AUTO) 508 K/uL (130-430); RED CELL DISTRIBUTION WIDTH 16.5 % (9.0-15.0); WHITE BLOOD COUNT (AUTO) 15.8 K/uL (4.8-10.8)
[2019-05-15] MEDS ORDERED: MORPHINE 4 MG/ML INJ. SYRINGE IVP ONE (00:45)
[2019-05-15 00:46] LABS: ATYPICAL LYMPHOCYTES % 0 % (0-0); BAND % (MANUAL) 0 % (0-6); BASOPHILS % (MANUAL) 0 % (0-2); EOSINOPHILS % (MANUAL) 1 % (0-7); LYMPHOCYTES % (MANUAL) 42 % (20-46); MONOCYTES % (MANUAL) 7 % (0-11)
[2019-05-15 00:48] LABS: CALCIUM 8.6 mg/dL (8.4-11.0); CREATININE 1.31 mg/dL (0.55-1.30); POTASSIUM 3.8 mmol/L (3.5-5.1)
[2019-05-15 00:54] LABS: ALBUMIN 4.2 g/dL (3.4-4.8); TOTAL BILIRUBIN 0.7 mg/dL (0.0-1.0)
[2019-05-15 01:24] LABS: PROTHROMBIN TIME 9.8 SECS (9.5-12.5)
[2019-05-15 02:22] LABS: BILIRUBIN,URINE 1+ (NEGATIVE); BLOOD, URINE NEGATIVE (NEGATIVE); CLARITY/URINE CLEAR (CLEAR); COLOR,URINE YELLOW (YELLOW); GLUCOSE,URINE NEGATIVE (NEGATIVE); KETONES,URINE TRACE (NEGATIVE); LEUKOCYTE ESTERASE ,URINE NEGATIVE (NEGATIVE); NITRITE, URINE NEGATIVE (NEGATIVE); PROTEIN URINE 1+ (NEGATIVE)
[2019-05-15 02:38] LABS: BACTERIA,URINE FEW /HPF (None Seen); RBC,URINE 0-3 /HPF (0-3)
[2019-05-15] MEDS ORDERED: MORPHINE 2 MG/ML INJ. SYRINGE IVP ONE (02:45)
[2019-05-15] MEDS ORDERED: LORazepam 2 MG/ML VIAL IM ONE (04:15)
[2019-05-15] MEDS ORDERED: ACETAMINOPHEN 500 MG TABLET PO ONE (04:15)
[2019-05-15 05:00] VITALS: BP_SYST 129
== END 2019-05-15 04:52 | disposition home or self-care (01) ==
LOC: SED 23:57
DX: R10.9 Unspecified abdominal pain (principal); I10 Essential (primary) hypertension; F41.9 Anxiety disorder, unspecified; M79.7 Fibromyalgia; Z88.0 Allergy status to penicillin; Z91.018 Allergy to other foods; Z79.899 Other long term (current) drug therapy
CPT/HCPCS: 36415; 74176; 80053; 81000; 82150; 83690; 83735; 85007; 85027; 85610; 96361; 96372; 96374; 96375; 96376; 99284; J1885; J2060; J2270 ×2; J2405; J7030

== ENCOUNTER 2019-05-15 20:48 | Emergency (ER) | payer OTHER ==
[~2019-05-15] VITALS: Ht 162.6 cm; Wt 108.9 kg
[2019-05-15 20:55] VITALS: BP_SYST 117
[2019-05-15 22:23] LABS: BILIRUBIN,URINE NEGATIVE (NEGATIVE); BLOOD, URINE NEGATIVE (NEGATIVE); CLARITY/URINE CLEAR (CLEAR); COLOR,URINE YELLOW (YELLOW); GLUCOSE,URINE NEGATIVE (NEGATIVE); KETONES,URINE NEGATIVE (NEGATIVE); LEUKOCYTE ESTERASE ,URINE NEGATIVE (NEGATIVE); NITRITE, URINE NEGATIVE (NEGATIVE); PROTEIN URINE NEGATIVE (NEGATIVE); UROBILINOGEN,URINE 0.2 (0.2-1.0)
[2019-05-15 22:34] LABS: BASOPHILS # (AUTO) 0.2 K/uL (0.0-0.2); BASOPHILS % (AUTO) 1.3 % (0.0-2.0); EOSINOPHILS # (AUTO) 0.2 K/uL (0.0-0.4); EOSINOPHILS % (AUTO) 1.6 % (0.0-4.0); HEMATOCRIT 38.2 % (36-48); HEMOGLOBIN 12.3 g/dL (12.0-16.0); LYMPHOCYTES % (AUTO) 31.6 % (20.5-51.5); MEAN CORPUSCULAR HEMOGLOBIN 26 pg (27-31); MEAN CORPUSCULAR HGB CONC 32 % (32-36); MEAN CORPUSCULAR VOLUME 81 fL (79.0-98.0); MONOCYTES # (AUTO) 0.7 K/uL (0.0-1.0); MONOCYTES % (AUTO) 5.4 % (1.7-9.3); NEUTROPHILS # (AUTO) 7.6 K/uL (1.8-7.7); NEUTROPHILS % (AUTO) 60.1 % (40.0-70.0); PLATELET COUNT (AUTO) 405 K/uL (130-430); RED CELL DISTRIBUTION WIDTH 16.3 % (9.0-15.0); WHITE BLOOD COUNT (AUTO) 12.7 K/uL (4.8-10.8)
[2019-05-15 22:36] LABS: CANNABINOID, URINE POSITIVE (NEG <=50); OPIATE, URINE POSITIVE (NEG <=100)
[2019-05-15 22:37] LABS: BARBITURATE, URINE NEGATIVE (NEG <=200); BENZODIAZEPINE, URINE POSITIVE (NEG <=150); COCAINE, URINE NEGATIVE (NEG <=150); METHAMPHETAMINES SCREEN,URINE NEGATIVE (NEG <=500); PHENCYCLIDINE SCREEN,URINE NEGATIVE (NEG <=25); UR TRICYCLIC ANTIDEPRESSANTS NEGATIVE (NEG <=300); URINE AMPHETAMINE NEGATIVE (NEG <=500); URINE METHADONE NEGATIVE (NEG <=200); URINE OXYCODONE SCREEN NEGATIVE (NEG <=100); URINE PROPOXYPHENE SCREEN NEGATIVE (NEG <=300)
[2019-05-15 22:47] LABS: CALCIUM 9.1 mg/dL (8.4-11.0); CREATININE 1.19 mg/dL (0.55-1.30)
[2019-05-15] MEDS ORDERED: DIPHENHYDRAMINE INJ 50 MG/ML VIAL IVP ONE (23:15)
[2019-05-15] MEDS ORDERED: MAGNESIUM SULFATE 4 GM in D5W 250 ML IV ONE (23:15)
[2019-05-15] MEDS ORDERED: MORPHINE 4 MG/ML INJ. SYRINGE IVP ONE (23:15)
[2019-05-15] MEDS ORDERED: MAGNESIUM SULFATE 1 GM/2 ML VIAL ONE ×2 (23:37→23:41)
[2019-05-16] MEDS ORDERED: ONDANSETRON HCL 4 MG/2 ML VIAL IVP ONE (01:00)
[2019-05-16 02:50] VITALS: BP_SYST 140
== END 2019-05-16 02:50 | disposition home or self-care (01) ==
LOC: SED 20:48
DX: E83.42 Hypomagnesemia (principal); R10.9 Unspecified abdominal pain; I10 Essential (primary) hypertension; M79.7 Fibromyalgia; F41.9 Anxiety disorder, unspecified; Z88.0 Allergy status to penicillin; Z91.018 Allergy to other foods; Z79.899 Other long term (current) drug therapy
CPT/HCPCS: 36415; 80053; 80307; 81003; 83735; 85025; 96374; 96375 ×2; 99283; J1200; J2270; J2405; J3475; J7030

== ENCOUNTER 2019-05-19 20:55 | Emergency (ER) | payer OTHER ==
[~2019-05-19] VITALS: Ht 162.6 cm; Wt 108.9 kg
[2019-05-19 21:18] VITALS: BP_SYST 156
--- NOTE | 2019-05-19 22:07 | NUR ---
Pt ambulatory to bed 4 for evaluation
--- NOTE | 2019-05-19 22:20 | NUR ---
ER Dr. Stephens at bedside examining patient.
--- NOTE | 2019-05-19 22:30 | NUR ---
Pt is a 54 y/o female with hx of gitelman's syndrome, htn, and chondocalcinosis in the right knee comes to the ER w/ c/o right knee pain status-post slip and fall. Pain rates at 10/10 and describes at throbbing. Pt states she beleives she stretched her right knee as it is painful when she straightens it out. Pt has used ice and elevating it with minimal help, as well as using pain medication with minimal help. Pt reports she is allergic to penicillin, kiwi, and paper tape. Pt also thinks her magnesium is low. Pt denies head injuries, headache, ab pain, n/v, loc, numbness, tingling, fever, chills, chest pain, sob, or any other symptoms. Will cont to monitor pt.
[2019-05-19] MEDS ORDERED: MORPHINE 4 MG/ML INJ. SYRINGE IVP ONE (22:45)
[2019-05-19] MEDS ORDERED: DIPHENHYDRAMINE INJ 50 MG/ML VIAL IVP ONE (22:45)
[2019-05-19] MEDS ORDERED: MAGNESIUM SULFATE 4 GM in D5W 250 ML IV ONE (22:45)
--- NOTE | 2019-05-19 22:47 | NUR ---
Radiology at bedside.
[2019-05-19 23:00] LABS: BASOPHILS # (AUTO) 0.1 K/uL (0.0-0.2); BASOPHILS % (AUTO) 1.1 % (0.0-2.0); EOSINOPHILS # (AUTO) 0.1 K/uL (0.0-0.4); HEMATOCRIT 39.6 % (36-48); HEMOGLOBIN 12.8 g/dL (12.0-16.0); LYMPHOCYTES % (AUTO) 32.6 % (20.5-51.5); MEAN CORPUSCULAR HEMOGLOBIN 26 pg (27-31); MEAN CORPUSCULAR HGB CONC 32 % (32-36); MEAN CORPUSCULAR VOLUME 81 fL (79.0-98.0); MONOCYTES # (AUTO) 0.8 K/uL (0.0-1.0); MONOCYTES % (AUTO) 6.3 % (1.7-9.3); NEUTROPHILS # (AUTO) 7.3 K/uL (1.8-7.7); PLATELET COUNT (AUTO) 470 K/uL (130-430); RED BLOOD CELL COUNT(AUTO) 4.89 MIL/uL (4.2-6.2); RED CELL DISTRIBUTION WIDTH 16.7 % (9.0-15.0); WHITE BLOOD COUNT (AUTO) 12.4 K/uL (4.8-10.8)
[2019-05-19] MEDS ORDERED: MAGNESIUM SULFATE 100 ML IV ONE (23:05)
[2019-05-19 23:14] LABS: ANION GAP 8 (5-15); CALCIUM 9.6 mg/dL (8.4-11.0); CHLORIDE 99 mmol/L (98-107); CREATININE 1.13 mg/dL (0.55-1.30); GLUCOSE 126 mg/dL (70-99); POTASSIUM 3.4 mmol/L (3.5-5.1); SODIUM SERUM 135 mmol/L (136-145); UREA NITROGEN, BLOOD 10 mg/dL (8-21)
[2019-05-19 23:16] LABS: GFR AFRICAN AMERICAN 65 mL/min (>90)
--- NOTE | 2019-05-20 | NUR ---
Pt resting in bed watching tv. No signs of acute distress or discomfort noted. Will cont to monitor.
--- NOTE | 2019-05-20 01:20 | NUR ---
Pt states her pain to her right knee is coming back. Made MD aware, will cont to monitor pt.
[2019-05-20] MEDS ORDERED: DIPHENHYDRAMINE INJ 50 MG/ML VIAL IVP ONE (01:30)
[2019-05-20] MEDS ORDERED: MORPHINE 4 MG/ML INJ. SYRINGE IVP ONE (01:30)
--- NOTE | 2019-05-20 01:43 | NUR ---
Pt medicated with morphine 4 mg IVP and benadryl 50 mg IVP per MD order. Pt tolerated medication well, will cont to monitor pt.
[2019-05-20 02:19] VITALS: BP_SYST 120
--- NOTE | 2019-05-20 02:19 | NUR ---
Patient given written and verbal discharge instructions and verbalizes understanding. ER MD Dr. Stephens discussed with patient the results and treatment provided. Patient in stable condition. ID arm band removed. IV catheter removed intact and dressing applied, no active bleeding. Patient educated on pain management and to follow up with PMD. Pain Scale 2/10 and able to steadily ambulate out of the ER. Opportunity for questions provided and answered. Medication side effect fact sheet provided.
== END 2019-05-20 02:19 | disposition home or self-care (01) ==
LOC: SED 20:55
DX: S83.91XA Sprain of unspecified site of right knee, initial encounter (principal); Z88.0 Allergy status to penicillin; Z79.899 Other long term (current) drug therapy; Z91.018 Allergy to other foods; W01.0XXA Fall on same level from slipping, tripping and stumbling without subsequent striking against object, initial encounter; Y93.89 Activity, other specified; Y92.89 Other specified places as the place of occurrence of the external cause; Y99.8 Other external cause status
CPT/HCPCS: 36415; 73564; 80048; 83735; 85025; 96365; 96366; 96375; 96376; 99284; J1200 ×2; J2270 ×2; J3475

== ENCOUNTER 2019-05-24 21:06 | Emergency (ER) | payer OTHER ==
[~2019-05-24] VITALS: Ht 162.6 cm; Wt 108.9 kg
--- NOTE | 2019-05-24 21:35 | NUR ---
ER Dr. Watson in triage room examining patient.
[2019-05-24 21:53] VITALS: BP_SYST 126
--- NOTE | 2019-05-24 22:01 | NUR ---
Placed in room 4 . Placed on director park, blood pressure machine and pulse oximeter. To gown for exam. Side rails up.
--- NOTE | 2019-05-24 22:09 | NUR ---
Pt complains of bilateral leg pain. Pt had diarrhea earlier today and has been nauseous. Pt is AAO x 4 and ambulatory. No other injuries/complaints per patient or noted.
[2019-05-24] MEDS ORDERED: ONDANSETRON HCL 4 MG/2 ML VIAL IVP ONE (22:15)
[2019-05-24] MEDS ORDERED: NACL 0.9% 1,000 ML IV ONE (22:15)
[2019-05-24] MEDS ORDERED: DEXAMETHASONE SOD PHOSPHATE 10 MG/ML VIAL IVP ONE (22:15)
[2019-05-24] MEDS ORDERED: MORPHINE 2 MG/ML INJ. SYRINGE IVP ONE (22:15)
[2019-05-24] MEDS ORDERED: DIPHENHYDRAMINE INJ 50 MG/ML VIAL IVP ONE (22:15)
--- NOTE | 2019-05-24 22:15 | NUR ---
Pt refused ultrasound
[2019-05-24 22:38] LABS: BASOPHILS # (AUTO) 0.2 K/uL (0.0-0.2); BASOPHILS % (AUTO) 1.8 % (0.0-2.0); EOSINOPHILS # (AUTO) 0.2 K/uL (0.0-0.4); EOSINOPHILS % (AUTO) 1.5 % (0.0-4.0); HEMATOCRIT 37.6 % (36-48); HEMOGLOBIN 12.2 g/dL (12.0-16.0); LYMPHOCYTES # (AUTO) 3.5 K/uL (1.0-5.5); LYMPHOCYTES % (AUTO) 35.7 % (20.5-51.5); MEAN CORPUSCULAR HEMOGLOBIN 27 pg (27-31); MEAN CORPUSCULAR HGB CONC 33 % (32-36); MEAN CORPUSCULAR VOLUME 82 fL (79.0-98.0); MONOCYTES # (AUTO) 0.7 K/uL (0.0-1.0); MONOCYTES % (AUTO) 6.7 % (1.7-9.3); NEUTROPHILS # (AUTO) 5.4 K/uL (1.8-7.7); NEUTROPHILS % (AUTO) 54.3 % (40.0-70.0); PLATELET COUNT (AUTO) 375 K/uL (130-430); RED BLOOD CELL COUNT(AUTO) 4.57 MIL/uL (4.2-6.2); RED CELL DISTRIBUTION WIDTH 17.2 % (9.0-15.0); WHITE BLOOD COUNT (AUTO) 9.9 K/uL (4.8-10.8)
[2019-05-24 22:47] LABS: CALCIUM 8.9 mg/dL (8.4-11.0); CREATININE 1.23 mg/dL (0.55-1.30); POTASSIUM 4.1 mmol/L (3.5-5.1)
[2019-05-24 22:50] LABS: PROTHROMBIN TIME 10.4 SECS (9.5-12.5)
[2019-05-24 22:54] LABS: ALBUMIN 4.3 g/dL (3.4-4.8); TOTAL BILIRUBIN 0.6 mg/dL (0.0-1.0)
--- NOTE | 2019-05-24 23:00 | NUR ---
Pt resting comfortably in bed. No acute distress, will continue to monitor.
[2019-05-24] MEDS ORDERED: MAGNESIUM SULFATE 4 GM in D5W 250 ML IV ONE (23:45)
[2019-05-25] MEDS ORDERED: MAGNESIUM SULFATE 50 ML IV ONE ×2
[2019-05-25] MEDS ORDERED: MAGNESIUM SULFATE 100 ML IV ONE (00:07)
[2019-05-25] MEDS ORDERED: DIPHENHYDRAMINE INJ 50 MG/ML VIAL IVP ONE (00:15)
[2019-05-25] MEDS ORDERED: MORPHINE 2 MG/ML INJ. SYRINGE IVP ONE (00:15)
[2019-05-25] MEDS ORDERED: MORPHINE 4 MG/ML INJ. SYRINGE IVP ONE (01:45)
--- NOTE | 2019-05-25 01:55 | NUR ---
Medication was given, pt tolerated well. No adverse reaction, will continue to monitor.
[2019-05-25 02:13] VITALS: BP_SYST 135
--- NOTE | 2019-05-25 02:13 | NUR ---
Patient given written and verbal discharge instructions and verbalizes understanding. ER MD discussed with patient the results and treatment provided. Patient in stable condition. ID arm band removed. IV catheter removed intact and dressing applied, no active bleeding. No Rx given. Patient educated on pain management and to follow up with PMD. Pain Scale 0. Opportunity for questions provided and answered. Medication side effect fact sheet provided.
== END 2019-05-25 02:13 | disposition home or self-care (01) ==
LOC: SED 21:06
DX: E83.42 Hypomagnesemia (principal); R25.2 Cramp and spasm; I10 Essential (primary) hypertension; F41.9 Anxiety disorder, unspecified; M79.7 Fibromyalgia; Z88.0 Allergy status to penicillin; Z91.018 Allergy to other foods; Z79.899 Other long term (current) drug therapy
CPT/HCPCS: 36415; 80053; 82550; 83735; 85025; 85610; 85730; 96365; 96366; 96375; 96376; 99284; J1100; J1200 ×2; J2270 ×3; J2405; J3475; J7030

== ENCOUNTER 2019-06-02 23:55 | Emergency (ER) | payer OTHER ==
[~2019-06-02] VITALS: Ht 162.6 cm; Wt 113.4 kg
[2019-06-03] VITALS: BP_SYST 118
[2019-06-03 01:25] LABS: BASOPHILS # (AUTO) 0.1 K/uL (0.0-0.2); BASOPHILS % (AUTO) 1.2 % (0.0-2.0); EOSINOPHILS # (AUTO) 0.1 K/uL (0.0-0.4); HEMOGLOBIN 11.6 g/dL (12.0-16.0); LYMPHOCYTES # (AUTO) 3.7 K/uL (1.0-5.5); MEAN CORPUSCULAR HEMOGLOBIN 26 pg (27-31); MEAN CORPUSCULAR HGB CONC 32 % (32-36); MEAN CORPUSCULAR VOLUME 81 fL (79.0-98.0); MONOCYTES # (AUTO) 0.8 K/uL (0.0-1.0); NEUTROPHILS # (AUTO) 6.2 K/uL (1.8-7.7); NEUTROPHILS % (AUTO) 56.8 % (40.0-70.0); PLATELET COUNT (AUTO) 356 K/uL (130-430); RED BLOOD CELL COUNT(AUTO) 4.43 MIL/uL (4.2-6.2); WHITE BLOOD COUNT (AUTO) 10.9 K/uL (4.8-10.8)
[2019-06-03 01:29] LABS: CALCIUM 9.2 mg/dL (8.4-11.0); CREATININE 1.17 mg/dL (0.55-1.30); POTASSIUM 3.9 mmol/L (3.5-5.1)
[2019-06-03 01:35] LABS: TOTAL BILIRUBIN 0.3 mg/dL (0.0-1.0)
[2019-06-03] MEDS ORDERED: MAGNESIUM SULFATE 50 ML IV ONE ×2 (02:30→04:15)
[2019-06-03] MEDS ORDERED: DIPHENHYDRAMINE INJ 50 MG/ML VIAL IVP ONE ×2 (03:15→04:15)
[2019-06-03] MEDS ORDERED: MORPHINE 4 MG/ML INJ. SYRINGE IVP ONE ×2 (03:15→04:15)
[2019-06-03 06:28] VITALS: BP_SYST 126
== END 2019-06-03 06:28 | disposition home or self-care (01) ==
LOC: SED 23:55
DX: M25.561 Pain in right knee (principal); R25.2 Cramp and spasm; E83.42 Hypomagnesemia; I12.9 Hypertensive chronic kidney disease with stage 1 through stage 4 chronic kidney disease, or unspecified chronic kidney disease; N18.9 Chronic kidney disease, unspecified; F41.9 Anxiety disorder, unspecified; M79.7 Fibromyalgia; Z88.0 Allergy status to penicillin; Z91.018 Allergy to other foods; Z79.899 Other long term (current) drug therapy
CPT/HCPCS: 36415; 80053; 83735; 85025; 96365; 96366; 96375; 96376; 99283; J1200; J2270; J3475; J7030

== ENCOUNTER 2019-06-06 23:14 | Emergency (ER) | payer OTHER ==
[~2019-06-06] VITALS: Ht 162.6 cm; Wt 113.4 kg
[2019-06-06 23:14] VITALS: BP_SYST 109
[2019-06-06] MEDS ORDERED: NACL 0.9% 1,000 ML IV ONE (23:35)
[2019-06-06] MEDS ORDERED: MORPHINE 4 MG/ML INJ. SYRINGE IVP ONE (23:45)
[2019-06-06] MEDS ORDERED: MAGNESIUM SULFATE 4 GM in D5W 250 ML IV ONE (23:45)
[2019-06-06] MEDS ORDERED: PANTOPRAZOLE SODIUM 40 MG/VIAL (PROTONIX) IVP ONE (23:45)
[2019-06-06] MEDS ORDERED: ONDANSETRON HCL 4 MG/2 ML VIAL IVP ONE (23:45)
[2019-06-06] MEDS ORDERED: DIPHENHYDRAMINE INJ 50 MG/ML VIAL IVP ONE (23:45)
[2019-06-07 00:10] LABS: BASOPHILS # (AUTO) 0.3 K/uL (0.0-0.2); BASOPHILS % (AUTO) 2.4 % (0.0-2.0); EOSINOPHILS # (AUTO) 0.2 K/uL (0.0-0.4); EOSINOPHILS % (AUTO) 1.5 % (0.0-4.0); HEMATOCRIT 34.9 % (36-48); HEMOGLOBIN 11.3 g/dL (12.0-16.0); LYMPHOCYTES # (AUTO) 3.9 K/uL (1.0-5.5); MEAN CORPUSCULAR HEMOGLOBIN 26 pg (27-31); MEAN CORPUSCULAR HGB CONC 33 % (32-36); MEAN CORPUSCULAR VOLUME 81 fL (79.0-98.0); MONOCYTES # (AUTO) 0.7 K/uL (0.0-1.0); MONOCYTES % (AUTO) 5.8 % (1.7-9.3); NEUTROPHILS # (AUTO) 6.4 K/uL (1.8-7.7); NEUTROPHILS % (AUTO) 56.3 % (40.0-70.0); PLATELET COUNT (AUTO) 338 K/uL (130-430); RED BLOOD CELL COUNT(AUTO) 4.33 MIL/uL (4.2-6.2); RED CELL DISTRIBUTION WIDTH 17.3 % (9.0-15.0); WHITE BLOOD COUNT (AUTO) 11.4 K/uL (4.8-10.8)
[2019-06-07 00:20] LABS: ANION GAP 10 (5-15); CALCIUM 8.5 mg/dL (8.4-11.0); CHLORIDE 104 mmol/L (98-107); CREATININE 1.21 mg/dL (0.55-1.30); GLUCOSE 155 mg/dL (70-99); SODIUM SERUM 141 mmol/L (136-145); UREA NITROGEN, BLOOD 12 mg/dL (8-21)
[2019-06-07] MEDS ORDERED: MAGNESIUM SULFATE 1 GM/2 ML VIAL ONE (00:23)
[2019-06-07 00:24] LABS: GFR AFRICAN AMERICAN 60 mL/min (>90)
[2019-06-07 00:26] LABS: ALANINE AMINOTRANSFERASE 23 U/L (12-78); ALBUMIN 3.7 g/dL (3.4-4.8); ASPARTATE AMINOTRANSFERASE 19 U/L (10-37); TOTAL BILIRUBIN 0.4 mg/dL (0.0-1.0)
[2019-06-07] MEDS ORDERED: MORPHINE 4 MG/ML INJ. SYRINGE IVP ONE ×2 (01:15→03:15)
[2019-06-07] MEDS ORDERED: DIPHENHYDRAMINE INJ 50 MG/ML VIAL IVP ONE ×2 (01:15→03:15)
[2019-06-07 04:20] VITALS: BP_SYST 129
== END 2019-06-07 04:20 | disposition home or self-care (01) ==
LOC: SED 23:14
DX: M11.261 Other chondrocalcinosis, right knee (principal); R25.2 Cramp and spasm; E83.42 Hypomagnesemia; R11.10 Vomiting, unspecified; R19.7 Diarrhea, unspecified; I12.9 Hypertensive chronic kidney disease with stage 1 through stage 4 chronic kidney disease, or unspecified chronic kidney disease; N18.9 Chronic kidney disease, unspecified; F41.9 Anxiety disorder, unspecified; M79.7 Fibromyalgia; Z88.0 Allergy status to penicillin; Z91.018 Allergy to other foods; Z79.899 Other long term (current) drug therapy
CPT/HCPCS: 36415; 80053; 83735; 85025; 96365; 96366; 96375 ×2; 96376; 99284; C9113; J1200 ×2; J2270 ×2; J2405; J3475; J7030

== ENCOUNTER 2019-06-09 19:28 | Emergency (ER) | payer OTHER ==
[~2019-06-09] VITALS: Ht 167.6 cm; Wt 113.4 kg
[2019-06-09 19:55] VITALS: BP_SYST 118
--- NOTE | 2019-06-09 20:02 | NUR ---
Pt c/o vomiting over the past 24 hours with Diarrhea and leg cramping over the past 48 hours.
--- NOTE | 2019-06-09 20:02 | NUR ---
Patient to ER bed 03 to gown for evaluation. Side rails up.
[2019-06-09] MEDS ORDERED: NACL 0.9% 1,000 ML IV ONE (20:49)
--- NOTE | 2019-06-09 21:00 | NUR ---
Pt to restroom. Unable to provide urine specimen at this time.
--- NOTE | 2019-06-09 21:05 | NUR ---
Lab at bedside.
[2019-06-09 21:14] LABS: BASOPHILS # (AUTO) 0.1 K/uL (0.0-0.2); BASOPHILS % (AUTO) 1.4 % (0.0-2.0); EOSINOPHILS % (AUTO) 0.5 % (0.0-4.0); HEMATOCRIT 40.2 % (36-48); LYMPHOCYTES # (AUTO) 2.7 K/uL (1.0-5.5); LYMPHOCYTES % (AUTO) 29.5 % (20.5-51.5); MEAN CORPUSCULAR HEMOGLOBIN 26 pg (27-31); MEAN CORPUSCULAR HGB CONC 32 % (32-36); MEAN CORPUSCULAR VOLUME 80 fL (79.0-98.0); MONOCYTES # (AUTO) 0.5 K/uL (0.0-1.0); MONOCYTES % (AUTO) 5.7 % (1.7-9.3); NEUTROPHILS # (AUTO) 5.8 K/uL (1.8-7.7); NEUTROPHILS % (AUTO) 62.9 % (40.0-70.0); PLATELET COUNT (AUTO) 392 K/uL (130-430); RED BLOOD CELL COUNT(AUTO) 5.02 MIL/uL (4.2-6.2); RED CELL DISTRIBUTION WIDTH 16.7 % (9.0-15.0); WHITE BLOOD COUNT (AUTO) 9.2 K/uL (4.8-10.8)
[2019-06-09 21:27] LABS: CALCIUM 9.5 mg/dL (8.4-11.0); CREATININE 1.2 mg/dL (0.55-1.30); POTASSIUM 4.2 mmol/L (3.5-5.1)
[2019-06-09 21:34] LABS: ALBUMIN 4.2 g/dL (3.4-4.8); TOTAL BILIRUBIN 0.8 mg/dL (0.0-1.0)
--- NOTE | 2019-06-09 21:50 | NUR ---
Dr. Blair at bedside.
[2019-06-09] MEDS ORDERED: ONDANSETRON HCL 4 MG/2 ML VIAL IVP ONE (22:45)
[2019-06-09] MEDS ORDERED: MORPHINE 4 MG/ML INJ. SYRINGE IVP ONE (22:45)
[2019-06-09] MEDS ORDERED: DIPHENHYDRAMINE INJ 50 MG/ML VIAL IVP ONE (22:45)
--- NOTE | 2019-06-09 23:00 | NUR ---
No needs verbalized at this time. VSS.
[2019-06-09] MEDS ORDERED: DIPHENHYDRAMINE INJ 50 MG/ML VIAL ONE (23:02)
[2019-06-09 23:34] LABS: BILIRUBIN,URINE NEGATIVE (NEGATIVE); BLOOD, URINE NEGATIVE (NEGATIVE); CLARITY/URINE CLEAR (CLEAR); COLOR,URINE YELLOW (YELLOW); GLUCOSE,URINE NEGATIVE (NEGATIVE); KETONES,URINE NEGATIVE (NEGATIVE); LEUKOCYTE ESTERASE ,URINE NEGATIVE (NEGATIVE); NITRITE, URINE NEGATIVE (NEGATIVE); PROTEIN URINE NEGATIVE (NEGATIVE); UROBILINOGEN,URINE 0.2 (0.2-1.0)
--- NOTE | 2019-06-09 23:48 | NUR ---
Pt c/o severe leg cramping. Dr. Blari notified.
[2019-06-10] MEDS ORDERED: MAGNESIUM SULFATE 1 GM/2 ML VIAL IVP ONE
[2019-06-10] MEDS ORDERED: MAGNESIUM SULFATE 0 ML IV ONE (00:17)
[2019-06-10] MEDS ORDERED: MAGNESIUM SULFATE 50 ML IV ONE ×2 (00:30)
[2019-06-10] MEDS ORDERED: MORPHINE 4 MG/ML INJ. SYRINGE IVP ONE (00:45)
[2019-06-10] MEDS ORDERED: MAG HYDROX/AL HYDROX/SIMETH 30 ML, DICYCLOMINE HCL 20 MG, LIDOCAINE VISCOUS 2% 15ML (PO... PO ONE ×3 (00:45)
[2019-06-10] MEDS ORDERED: DIPHENHYDRAMINE INJ 50 MG/ML VIAL IVP ONE (00:45)
--- NOTE | 2019-06-10 01:20 | NUR ---
No needs verbalized at this time. Mag Sulfate continues to infuse to patent PIV Right wrist at 30 mL/hr without difficulty. VSS, NAD.
--- NOTE | 2019-06-10 02:30 | NUR ---
No needs verbalized at this time.
[2019-06-10] MEDS ORDERED: MORPHINE 2 MG/ML INJ. SYRINGE IVP ONE (04:45)
[2019-06-10 04:46] VITALS: BP_SYST 118
== END 2019-06-10 04:46 | disposition home or self-care (01) ==
LOC: SED 19:28
DX: E83.42 Hypomagnesemia (principal); N15.8 Other specified renal tubulo-interstitial diseases; I12.9 Hypertensive chronic kidney disease with stage 1 through stage 4 chronic kidney disease, or unspecified chronic kidney disease; N18.9 Chronic kidney disease, unspecified; F41.9 Anxiety disorder, unspecified; M79.7 Fibromyalgia; Z88.0 Allergy status to penicillin; Z91.018 Allergy to other foods; Z79.899 Other long term (current) drug therapy
CPT/HCPCS: 36415; 80053; 81003; 82150; 83690; 83735; 85025; 85610; 96365; 96366; 96375; 96376; 99283; J1200 ×2; J2001; J2270 ×3; J2405; J3475; J7030

== ENCOUNTER 2019-06-19 15:56 | Emergency (ER) | payer OTHER ==
[~2019-06-19] VITALS: Ht 162.6 cm; Wt 111.1 kg
[2019-06-19 16:12] VITALS: BP_SYST 109
[2019-06-19] MEDS ORDERED: NACL 0.9% 1,000 ML IV ONE (17:00)
[2019-06-19] MEDS ORDERED: MAGNESIUM SULFATE 50 ML IV ONE ×2 (17:00→20:00)
[2019-06-19] MEDS ORDERED: DIPHENHYDRAMINE INJ 50 MG/ML VIAL IVP ONE ×2 (17:00→18:30)
[2019-06-19] MEDS ORDERED: MORPHINE 4 MG/ML INJ. SYRINGE IVP ONE ×2 (17:00→18:30)
[2019-06-19 17:57] LABS: BASOPHILS # (AUTO) 0.1 K/uL (0.0-0.2); BASOPHILS % (AUTO) 1.1 % (0.0-2.0); EOSINOPHILS # (AUTO) 0.1 K/uL (0.0-0.4); EOSINOPHILS % (AUTO) 0.9 % (0.0-4.0); HEMATOCRIT 39.3 % (36-48); HEMOGLOBIN 12.7 g/dL (12.0-16.0); LYMPHOCYTES # (AUTO) 2.9 K/uL (1.0-5.5); LYMPHOCYTES % (AUTO) 23.5 % (20.5-51.5); MEAN CORPUSCULAR HEMOGLOBIN 26 pg (27-31); MEAN CORPUSCULAR HGB CONC 32 % (32-36); MEAN CORPUSCULAR VOLUME 80 fL (79.0-98.0); MONOCYTES # (AUTO) 0.7 K/uL (0.0-1.0); MONOCYTES % (AUTO) 5.4 % (1.7-9.3); NEUTROPHILS # (AUTO) 8.6 K/uL (1.8-7.7); NEUTROPHILS % (AUTO) 69.1 % (40.0-70.0); PLATELET COUNT (AUTO) 473 K/uL (130-430); RED BLOOD CELL COUNT(AUTO) 4.94 MIL/uL (4.2-6.2); RED CELL DISTRIBUTION WIDTH 16.9 % (9.0-15.0); WHITE BLOOD COUNT (AUTO) 12.5 K/uL (4.8-10.8)
[2019-06-19 18:08] LABS: CALCIUM 9.3 mg/dL (8.4-11.0); CREATININE 1.08 mg/dL (0.55-1.30); POTASSIUM 3.7 mmol/L (3.5-5.1)
[2019-06-19 18:13] LABS: ALBUMIN 4.2 g/dL (3.4-4.8); PHOSPHORUS 2.8 mg/dL (2.7-4.5); TOTAL BILIRUBIN 0.7 mg/dL (0.0-1.0)
[2019-06-19 22:00] VITALS: BP_SYST 130
== END 2019-06-19 22:00 | disposition home or self-care (01) ==
LOC: SED 15:56
DX: E83.42 Hypomagnesemia (principal); M25.512 Pain in left shoulder; R25.2 Cramp and spasm; I10 Essential (primary) hypertension; Z88.0 Allergy status to penicillin; Z91.018 Allergy to other foods; Z79.899 Other long term (current) drug therapy
CPT/HCPCS: 36415; 80053; 83735; 84100; 85025; 96365; 96366; 96375; 96376; 99283; J1200; J2270; J3475; J7030

== ENCOUNTER 2019-06-24 15:56 | Emergency (ER) | payer OTHER ==
[~2019-06-24] VITALS: Ht 157.5 cm; Wt 106.1 kg
[2019-06-24 16:24] VITALS: BP_SYST 116; BP_SYST 149
[2019-06-24 17:16] LABS: BASOPHILS # (AUTO) 0.1 K/uL (0.0-0.2); EOSINOPHILS # (AUTO) 0.1 K/uL (0.0-0.4); EOSINOPHILS % (AUTO) 0.9 % (0.0-4.0); HEMATOCRIT 36.7 % (36-48); HEMOGLOBIN 11.8 g/dL (12.0-16.0); LYMPHOCYTES # (AUTO) 2.4 K/uL (1.0-5.5); LYMPHOCYTES % (AUTO) 25.9 % (20.5-51.5); MEAN CORPUSCULAR HEMOGLOBIN 25 pg (27-31); MEAN CORPUSCULAR HGB CONC 32 % (32-36); MEAN CORPUSCULAR VOLUME 79 fL (79.0-98.0); MONOCYTES # (AUTO) 0.4 K/uL (0.0-1.0); MONOCYTES % (AUTO) 4.6 % (1.7-9.3); NEUTROPHILS # (AUTO) 6.2 K/uL (1.8-7.7); NEUTROPHILS % (AUTO) 67.6 % (40.0-70.0); PLATELET COUNT (AUTO) 438 K/uL (130-430); RED BLOOD CELL COUNT(AUTO) 4.65 MIL/uL (4.2-6.2); RED CELL DISTRIBUTION WIDTH 16.7 % (9.0-15.0); WHITE BLOOD COUNT (AUTO) 9.2 K/uL (4.8-10.8)
[2019-06-24 17:19] LABS: CALCIUM 8.8 mg/dL (8.4-11.0); CREATININE 1.12 mg/dL (0.55-1.30); POTASSIUM 4.3 mmol/L (3.5-5.1)
[2019-06-24 17:25] LABS: ALBUMIN 3.9 g/dL (3.4-4.8); TOTAL BILIRUBIN 0.5 mg/dL (0.0-1.0)
[2019-06-24] MEDS ORDERED: ONDANSETRON HCL 4 MG/2 ML VIAL IVP ONE (17:45)
[2019-06-24] MEDS ORDERED: KETOROLAC TROMETHAMINE 30 MG VIAL IVP ONE (17:45)
[2019-06-24] MEDS ORDERED: NACL 0.9% 1,000 ML IV ONE (17:45)
[2019-06-24 18:13] LABS: PHOSPHORUS 2.9 mg/dL (2.7-4.5)
[2019-06-24] MEDS ORDERED: MAGNESIUM SULFATE 50 ML IV ONE ×2 (18:15→20:45)
[2019-06-24] MEDS ORDERED: MORPHINE 4 MG/ML INJ. SYRINGE IVP ONE ×2 (20:00→20:45)
[2019-06-24] MEDS ORDERED: DIPHENHYDRAMINE INJ 50 MG/ML VIAL IVP ONE (20:45)
[2019-06-24 22:41] VITALS: BP_SYST 125
== END 2019-06-24 22:41 | disposition home or self-care (01) ==
LOC: SED 15:56
DX: G89.29 Other chronic pain (principal); M54.9 Dorsalgia, unspecified; E83.42 Hypomagnesemia; D64.9 Anemia, unspecified; R73.9 Hyperglycemia, unspecified; F41.9 Anxiety disorder, unspecified; M79.7 Fibromyalgia; Z88.0 Allergy status to penicillin; Z91.018 Allergy to other foods; Z79.899 Other long term (current) drug therapy
CPT/HCPCS: 36415; 80053; 83735; 84100; 85025; 96365; 96366; 96375; 96376; 99283; J1200; J1885; J2270; J2405; J3475; J7030

== ENCOUNTER 2019-06-25 17:53 | Emergency (ER) | payer OTHER ==
[~2019-06-25] VITALS: Ht 162.6 cm; Wt 106.1 kg
[2019-06-25 18:02] VITALS: BP_SYST 113
[2019-06-25 19:05] LABS: BASOPHILS # (AUTO) 0.1 K/uL (0.0-0.2); BASOPHILS % (AUTO) 1.4 % (0.0-2.0); EOSINOPHILS # (AUTO) 0.2 K/uL (0.0-0.4); EOSINOPHILS % (AUTO) 1.8 % (0.0-4.0); HEMATOCRIT 34.1 % (36-48); HEMOGLOBIN 11.3 g/dL (12.0-16.0); LYMPHOCYTES # (AUTO) 2.4 K/uL (1.0-5.5); LYMPHOCYTES % (AUTO) 28.8 % (20.5-51.5); MEAN CORPUSCULAR HEMOGLOBIN 26 pg (27-31); MEAN CORPUSCULAR HGB CONC 33 % (32-36); MEAN CORPUSCULAR VOLUME 80 fL (79.0-98.0); MONOCYTES # (AUTO) 0.6 K/uL (0.0-1.0); MONOCYTES % (AUTO) 6.9 % (1.7-9.3); NEUTROPHILS % (AUTO) 61.1 % (40.0-70.0); PLATELET COUNT (AUTO) 400 K/uL (130-430); RED BLOOD CELL COUNT(AUTO) 4.28 MIL/uL (4.2-6.2); RED CELL DISTRIBUTION WIDTH 17.1 % (9.0-15.0); WHITE BLOOD COUNT (AUTO) 8.2 K/uL (4.8-10.8)
[2019-06-25 19:30] LABS: ALBUMIN 3.7 g/dL (3.4-4.8); CREATININE 0.94 mg/dL (0.55-1.30); TOTAL BILIRUBIN 0.4 mg/dL (0.0-1.0)
[2019-06-25 22:11] LABS: BILIRUBIN,URINE NEGATIVE (NEGATIVE); BLOOD, URINE NEGATIVE (NEGATIVE); CLARITY/URINE CLEAR (CLEAR); COLOR,URINE YELLOW (YELLOW); GLUCOSE,URINE NEGATIVE (NEGATIVE); KETONES,URINE NEGATIVE (NEGATIVE); LEUKOCYTE ESTERASE ,URINE NEGATIVE (NEGATIVE); NITRITE, URINE NEGATIVE (NEGATIVE); PROTEIN URINE NEGATIVE (NEGATIVE); UROBILINOGEN,URINE 0.2 (0.2-1.0)
[2019-06-25] MEDS ORDERED: MORPHINE 4 MG/ML INJ. SYRINGE IVP ONE (22:30)
[2019-06-25] MEDS ORDERED: MAGNESIUM SULFATE 50 ML IV ONE (22:30)
[2019-06-26] MEDS ORDERED: MORPHINE 4 MG/ML INJ. SYRINGE IVP ONE (00:30)
[2019-06-26 00:50] VITALS: BP_SYST 126
== END 2019-06-26 00:50 | disposition home or self-care (01) ==
LOC: SED 17:53
DX: R10.9 Unspecified abdominal pain (principal); R19.7 Diarrhea, unspecified; I10 Essential (primary) hypertension; Z88.0 Allergy status to penicillin; Z91.018 Allergy to other foods; Z79.899 Other long term (current) drug therapy
CPT/HCPCS: 36415; 80053; 81003; 83735; 85025; 96365; 96375; 96376; 99283; J2270 ×2; J3475

== ENCOUNTER 2019-06-27 19:01 | Emergency (ER) | payer OTHER ==
[~2019-06-27] VITALS: Ht 162.6 cm; Wt 113.4 kg
[2019-06-27 19:05] VITALS: BP_SYST 99
[2019-06-27] MEDS ORDERED: NACL 0.9% 1,000 ML IV ONE (20:22)
[2019-06-27] MEDS ORDERED: MORPHINE 4 MG/ML INJ. SYRINGE IVP ONE ×2 (20:30→21:30)
[2019-06-27] MEDS ORDERED: MAGNESIUM SULFATE 4 GM in D5W 250 ML IV ONE (20:30)
[2019-06-27] MEDS ORDERED: DIPHENHYDRAMINE INJ 50 MG/ML VIAL IVP ONE ×2 (20:30→21:30)
[2019-06-27 20:39] LABS: BASOPHILS # (AUTO) 0.1 K/uL (0.0-0.2); BASOPHILS % (AUTO) 0.9 % (0.0-2.0); CALCIUM 9.2 mg/dL (8.4-11.0); CREATININE 1.04 mg/dL (0.55-1.30); EOSINOPHILS # (AUTO) 0.1 K/uL (0.0-0.4); EOSINOPHILS % (AUTO) 0.7 % (0.0-4.0); HEMATOCRIT 37.4 % (36-48); HEMOGLOBIN 12.1 g/dL (12.0-16.0); LYMPHOCYTES # (AUTO) 3.9 K/uL (1.0-5.5); LYMPHOCYTES % (AUTO) 28.1 % (20.5-51.5); MEAN CORPUSCULAR HEMOGLOBIN 26 pg (27-31); MEAN CORPUSCULAR HGB CONC 33 % (32-36); MEAN CORPUSCULAR VOLUME 79 fL (79.0-98.0); MONOCYTES # (AUTO) 0.7 K/uL (0.0-1.0); MONOCYTES % (AUTO) 4.9 % (1.7-9.3); NEUTROPHILS % (AUTO) 65.4 % (40.0-70.0); PLATELET COUNT (AUTO) 493 K/uL (130-430); POTASSIUM 3.5 mmol/L (3.5-5.1); RED BLOOD CELL COUNT(AUTO) 4.74 MIL/uL (4.2-6.2); RED CELL DISTRIBUTION WIDTH 16.6 % (9.0-15.0); WHITE BLOOD COUNT (AUTO) 13.8 K/uL (4.8-10.8)
[2019-06-27 20:45] LABS: ALBUMIN 4.1 g/dL (3.4-4.8); TOTAL BILIRUBIN 0.6 mg/dL (0.0-1.0)
[2019-06-27] MEDS ORDERED: MAGNESIUM SULFATE 100 ML IV ONE (20:46)
[2019-06-27] MEDS ORDERED: MAGNESIUM SULFATE 50 ML IV ONE ×4 (20:46→21:30)
[2019-06-27 21:04] LABS: BILIRUBIN,URINE 1+ (NEGATIVE); BLOOD, URINE NEGATIVE (NEGATIVE); CLARITY/URINE SL HAZY (CLEAR); COLOR,URINE YELLOW (YELLOW); GLUCOSE,URINE NEGATIVE (NEGATIVE); KETONES,URINE TRACE (NEGATIVE); LEUKOCYTE ESTERASE ,URINE 1+ (NEGATIVE); NITRITE, URINE NEGATIVE (NEGATIVE); PROTEIN URINE 1+ (NEGATIVE); UROBILINOGEN,URINE 0.2 (0.2-1.0)
[2019-06-27 21:23] LABS: BACTERIA,URINE MODERATE /HPF (None Seen); MUCUS,URINE 2+ /LPF (None Seen); RBC,URINE 0-3 /HPF (0-3)
[2019-06-27] MEDS ORDERED: LEVOFLOXACIN 500 MG TABLET PO ONE (23:00)
[2019-06-28] MEDS ORDERED: MORPHINE 4 MG/ML INJ. SYRINGE IVP ONE
[2019-06-28] MEDS ORDERED: DIPHENHYDRAMINE INJ 50 MG/ML VIAL IVP ONE
[2019-06-28] MEDS ORDERED: NITROFURANTOIN MONOHYD/M-CRYST 100 MG CAPSULE PO ONE ×2 (00:04)
[2019-06-28 00:16] VITALS: BP_SYST 118
== END 2019-06-28 00:16 | disposition home or self-care (01) ==
LOC: SED 19:01
DX: N39.0 Urinary tract infection, site not specified (principal); E83.42 Hypomagnesemia; I10 Essential (primary) hypertension; Z90.89 Acquired absence of other organs; Z88.0 Allergy status to penicillin; Z91.018 Allergy to other foods; Z79.899 Other long term (current) drug therapy
CPT/HCPCS: 36415; 80053; 81000; 83605; 83690; 83735; 85025; 87040; 87086; 96365; 96375; 96376 ×2; 99283; J1200 ×2; J2270 ×2; J3475; J7030

== ENCOUNTER 2019-06-29 22:10 | Emergency (ER) | payer OTHER ==
[~2019-06-29] VITALS: Ht 162.6 cm; Wt 113.4 kg
[2019-06-29 22:15] VITALS: BP_SYST 93
== END 2019-06-29 22:35 | disposition left against medical advice (07) ==
LOC: SED 22:10
DX: R11.0 Nausea (principal); Z53.21 Procedure and treatment not carried out due to patient leaving prior to being seen by health care provider
CPT/HCPCS: 80053; 83735-TC

== ENCOUNTER 2019-07-02 01:51 | Emergency (ER) | payer OTHER ==
[~2019-07-02] VITALS: Ht 162.6 cm; Wt 113.4 kg
[2019-07-02 01:51] VITALS: BP_SYST 124
[2019-07-02] MEDS ORDERED: NACL 0.9% 1,000 ML IV ONE (02:26)
[2019-07-02] MEDS ORDERED: DIPHENHYDRAMINE INJ 50 MG/ML VIAL IVP ONE ×2 (02:30→06:30)
[2019-07-02] MEDS ORDERED: ONDANSETRON HCL 4 MG/2 ML VIAL IVP ONE ×2 (02:30→06:30)
[2019-07-02] MEDS ORDERED: MAGNESIUM SULFATE 50 ML IV ONE ×2 (02:30→05:30)
[2019-07-02] MEDS ORDERED: MORPHINE 4 MG/ML INJ. SYRINGE IVP ONE ×2 (02:30→06:30)
[2019-07-02 03:54] LABS: BASOPHILS # (AUTO) 0.1 K/uL (0.0-0.2); BASOPHILS % (AUTO) 0.9 % (0.0-2.0); EOSINOPHILS # (AUTO) 0.2 K/uL (0.0-0.4); EOSINOPHILS % (AUTO) 1.4 % (0.0-4.0); HEMATOCRIT 35.1 % (36-48); LYMPHOCYTES # (AUTO) 3.8 K/uL (1.0-5.5); LYMPHOCYTES % (AUTO) 30.7 % (20.5-51.5); MEAN CORPUSCULAR HEMOGLOBIN 25 pg (27-31); MEAN CORPUSCULAR HGB CONC 31 % (32-36); MEAN CORPUSCULAR VOLUME 80 fL (79.0-98.0); MONOCYTES # (AUTO) 0.8 K/uL (0.0-1.0); MONOCYTES % (AUTO) 6.4 % (1.7-9.3); NEUTROPHILS # (AUTO) 7.5 K/uL (1.8-7.7); NEUTROPHILS % (AUTO) 60.6 % (40.0-70.0); PLATELET COUNT (AUTO) 465 K/uL (130-430); RED BLOOD CELL COUNT(AUTO) 4.42 MIL/uL (4.2-6.2); RED CELL DISTRIBUTION WIDTH 16.5 % (9.0-15.0); WHITE BLOOD COUNT (AUTO) 12.4 K/uL (4.8-10.8)
[2019-07-02 04:10] LABS: CALCIUM 8.9 mg/dL (8.4-11.0); CREATININE 1.09 mg/dL (0.55-1.30); POTASSIUM 3.6 mmol/L (3.5-5.1)
[2019-07-02 04:16] LABS: ALBUMIN 3.9 g/dL (3.4-4.8); TOTAL BILIRUBIN 0.3 mg/dL (0.0-1.0)
[2019-07-02 04:32] LABS: BILIRUBIN,URINE NEGATIVE (NEGATIVE); BLOOD, URINE NEGATIVE (NEGATIVE); CLARITY/URINE CLEAR (CLEAR); COLOR,URINE YELLOW (YELLOW); GLUCOSE,URINE NEGATIVE (NEGATIVE); KETONES,URINE NEGATIVE (NEGATIVE); LEUKOCYTE ESTERASE ,URINE NEGATIVE (NEGATIVE); NITRITE, URINE NEGATIVE (NEGATIVE); PROTEIN URINE NEGATIVE (NEGATIVE); UROBILINOGEN,URINE 0.2 (0.2-1.0)
[2019-07-02 06:54] VITALS: BP_SYST 122
== END 2019-07-02 06:54 | disposition home or self-care (01) ==
LOC: SED 01:51
DX: E83.42 Hypomagnesemia (principal); I10 Essential (primary) hypertension; Z88.0 Allergy status to penicillin; Z91.018 Allergy to other foods; Z79.899 Other long term (current) drug therapy
CPT/HCPCS: 36415; 80053; 81003; 83690; 83735; 85025; 96365; 96366; 96375; 96376; 99283; J1200; J2270; J2405; J3475; J7030

== ENCOUNTER 2019-07-04 18:49 | Emergency (ER) | payer OTHER ==
[~2019-07-04] VITALS: Ht 167.6 cm; Wt 113.4 kg
[2019-07-04 19:10] VITALS: BP_SYST 139
--- NOTE | 2019-07-04 19:20 | NUR ---
Patient to ER bed 5 to gown for evaluation. Side rails up. Report given to Katya HUNG.
--- NOTE | 2019-07-04 19:30 | NUR ---
Pt came to the ED for R flank pain, leg cramping, diarrhea x2 and dehydration which started this morning. Reports that she can feel her mag being low. Reports bilateral knee pain since Thursday. No other complaints/injuries noted. Will cont. to monitor.
--- NOTE | 2019-07-04 19:50 | NUR ---
# 20 gauge angiocath placed to left ac. Use of asceptic technique. Opsite placed over site. Blood return noted. Blood for lab drawn from site. Flushed with 10 cc of normal saline. No evidence of infiltration noted. Patient tolerated well.
[2019-07-04] MEDS ORDERED: NACL 0.9% 1,000 ML IV ONE ×2 (19:53→20:04)
[2019-07-04] MEDS ORDERED: DIPHENHYDRAMINE INJ 50 MG/ML VIAL IVP ONE (20:00)
[2019-07-04] MEDS ORDERED: MORPHINE 4 MG/ML INJ. SYRINGE IVP ONE (20:00)
[2019-07-04] MEDS ORDERED: ONDANSETRON HCL 4 MG/2 ML VIAL IVP ONE (20:00)
[2019-07-04] MEDS ORDERED: MAGNESIUM SULFATE 4 GM in D5W 250 ML IV ONE (20:00)
--- NOTE | 2019-07-04 20:14 | NUR ---
ER at bedside examining patient.
[2019-07-04 20:23] LABS: BASOPHILS # (AUTO) 0.1 K/uL (0.0-0.2); EOSINOPHILS # (AUTO) 0.1 K/uL (0.0-0.4); EOSINOPHILS % (AUTO) 0.7 % (0.0-4.0); HEMATOCRIT 36.5 % (36-48); HEMOGLOBIN 11.7 g/dL (12.0-16.0); LYMPHOCYTES # (AUTO) 3.1 K/uL (1.0-5.5); LYMPHOCYTES % (AUTO) 21.9 % (20.5-51.5); MEAN CORPUSCULAR HEMOGLOBIN 25 pg (27-31); MEAN CORPUSCULAR HGB CONC 32 % (32-36); MEAN CORPUSCULAR VOLUME 79 fL (79.0-98.0); MONOCYTES # (AUTO) 0.9 K/uL (0.0-1.0); MONOCYTES % (AUTO) 6.5 % (1.7-9.3); NEUTROPHILS # (AUTO) 9.8 K/uL (1.8-7.7); NEUTROPHILS % (AUTO) 69.9 % (40.0-70.0); PLATELET COUNT (AUTO) 486 K/uL (130-430); RED BLOOD CELL COUNT(AUTO) 4.65 MIL/uL (4.2-6.2); RED CELL DISTRIBUTION WIDTH 16.8 % (9.0-15.0)
[2019-07-04] MEDS ORDERED: MAGNESIUM SULFATE 100 ML IV ONE (20:23)
[2019-07-04] MEDS ORDERED: MAGNESIUM SULFATE 1 GM/2 ML VIAL ONE (20:24)
[2019-07-04 20:25] LABS: CALCIUM 9.3 mg/dL (8.4-11.0); CREATININE 1.33 mg/dL (0.55-1.30); POTASSIUM 4.2 mmol/L (3.5-5.1)
[2019-07-04 20:31] LABS: ALBUMIN 4.2 g/dL (3.4-4.8); TOTAL BILIRUBIN 0.5 mg/dL (0.0-1.0)
[2019-07-04 22:43] LABS: BILIRUBIN,URINE NEGATIVE (NEGATIVE); BLOOD, URINE NEGATIVE (NEGATIVE); CLARITY/URINE CLEAR (CLEAR); COLOR,URINE YELLOW (YELLOW); GLUCOSE,URINE NEGATIVE (NEGATIVE); KETONES,URINE NEGATIVE (NEGATIVE); LEUKOCYTE ESTERASE ,URINE NEGATIVE (NEGATIVE); NITRITE, URINE NEGATIVE (NEGATIVE); PH,URINE 6.5 (5.0-8.0); PROTEIN URINE NEGATIVE (NEGATIVE); UROBILINOGEN,URINE 0.2 (0.2-1.0)
--- NOTE | 2019-07-04 22:43 | NUR ---
PT resting comfortably, will cont. to monitor.
--- NOTE | 2019-07-04 23:58 | NUR ---
Pt states, "can you ask Dr. Stephens for another round?" DENNIS WATSON made aware.
[2019-07-05] MEDS ORDERED: DIPHENHYDRAMINE INJ 50 MG/ML VIAL IVP ONE (00:15)
[2019-07-05] MEDS ORDERED: MORPHINE 4 MG/ML INJ. SYRINGE IVP ONE (00:15)
[2019-07-05 00:31] VITALS: BP_SYST 139
--- NOTE | 2019-07-05 00:31 | NUR ---
Patient given written and verbal discharge instructions and verbalizes understanding. ER MD Dr. Stephens discussed with patient the results and treatment provided. Patient in stable condition. ID arm band removed. IV catheter removed intact and dressing applied, no active bleeding. Patient educated on pain management and to follow up with PMD. Pain Scale 0/10. Opportunity for questions provided and answered. Medication side effect fact sheet provided.
== END 2019-07-05 00:31 | disposition home or self-care (01) ==
LOC: SED 18:49
DX: E83.42 Hypomagnesemia (principal); R25.2 Cramp and spasm; I10 Essential (primary) hypertension; F41.9 Anxiety disorder, unspecified; Z79.899 Other long term (current) drug therapy; Z88.0 Allergy status to penicillin; Z91.018 Allergy to other foods
CPT/HCPCS: 36415; 80053; 81003; 83735; 85025; 96365; 96366; 96375 ×2; 96376 ×2; 99283; J1200 ×2; J2270 ×2; J2405; J3475

== ENCOUNTER 2019-07-06 15:01 | Outpatient (CLI) | payer OTHER ==
[2019-07-06 16:04] LABS: BASOPHILS % (AUTO) 0.3 % (0.0-2.0); EOSINOPHILS # (AUTO) 0.1 K/uL (0.0-0.4); EOSINOPHILS % (AUTO) 0.7 % (0.0-4.0); HEMATOCRIT 36.7 % (36-48); LYMPHOCYTES % (AUTO) 19.4 % (20.5-51.5); MEAN CORPUSCULAR HEMOGLOBIN 26 pg (27-31); MEAN CORPUSCULAR HGB CONC 33 % (32-36); MEAN CORPUSCULAR VOLUME 78 fL (79.0-98.0); MONOCYTES # (AUTO) 0.4 K/uL (0.0-1.0); MONOCYTES % (AUTO) 4.3 % (1.7-9.3); NEUTROPHILS # (AUTO) 7.7 K/uL (1.8-7.7); NEUTROPHILS % (AUTO) 75.3 % (40.0-70.0); PLATELET COUNT (AUTO) 450 K/uL (130-430); RED BLOOD CELL COUNT(AUTO) 4.69 MIL/uL (4.2-6.2); RED CELL DISTRIBUTION WIDTH 16.9 % (9.0-15.0); WHITE BLOOD COUNT (AUTO) 10.2 K/uL (4.8-10.8)
[2019-07-06 16:09] LABS: ALBUMIN 4.2 g/dL (3.4-4.8); CALCIUM 9.2 mg/dL (8.4-11.0); CREATININE 1.09 mg/dL (0.55-1.30); TOTAL BILIRUBIN 0.7 mg/dL (0.0-1.0)
== END 2019-07-06 18:45 | disposition home or self-care (01) ==
LOC: SLB 15:01
PROVIDERS: ATTEND Internal Medicine
DX: E87.6 Hypokalemia (principal); E61.2 Magnesium deficiency
CPT/HCPCS: 36415; 80053; 83735-TC; 85025

== ENCOUNTER 2019-07-06 17:13 | Emergency (ER) | payer OTHER ==
[~2019-07-06] VITALS: Ht 172.7 cm; Wt 111.1 kg
--- NOTE | 2019-07-06 17:26 | NUR ---
Patient to ER bed 05 to gown for evaluation. Side rails up.
[2019-07-06 17:27] VITALS: BP_SYST 142
[2019-07-06] MEDS ORDERED: DIPHENHYDRAMINE INJ 50 MG/ML VIAL IVP ONE ×2 (17:30→21:30)
[2019-07-06] MEDS ORDERED: KETOROLAC TROMETHAMINE 30 MG VIAL IVP ONE (17:30)
[2019-07-06] MEDS ORDERED: MAGNESIUM SULFATE 3 GM in D5W 100 ML IV ONE (17:30)
--- NOTE | 2019-07-06 17:35 | NUR ---
Patient presented to ER with right flank pain. Patient A&Ox4, ambulatory to ER, skin pink and warm, cap refill<3, afebrile, nausea, denies V/D, pain 10/10. Patient states she was seen by Dr. Ruvalcaba(PMD) referred to ER for apin and abnormal labs.
--- NOTE | 2019-07-06 17:40 | NUR ---
ER Dr. Canales at bedside examining patient.
[2019-07-06] MEDS ORDERED: MORPHINE 2 MG/ML INJ. SYRINGE IVP ONE ×2 (17:45→19:30)
[2019-07-06] MEDS ORDERED: LORazepam 2 MG/ML VIAL IVP ONE (17:45)
[2019-07-06] MEDS ORDERED: MAGNESIUM SULFATE 4 GM in D5W 250 ML IV ONE (18:00)
[2019-07-06] MEDS ORDERED: MAGNESIUM SULFATE 1 GM/2 ML VIAL ONE (18:15)
--- NOTE | 2019-07-06 19:02 | NUR ---
Note undone in EDM - 07/06/19 at 1904 by [email or web address] Patient presented to ER with right flank pain. Patient A&Ox4, ambulatory to ER, skin pink and warm, cap refill<3, afebrile, nausea, denies V/D, pain 06/16. Patient states she was seen by Dr. Ruvalcaba(PMD) referred to ER for apin and abnormal labs.
--- NOTE | 2019-07-06 19:10 | NUR ---
Report to Akash HUNG
--- NOTE | 2019-07-06 19:15 | NUR ---
Pt c/o pain to right flank and BLE. Dr. Lewis made aware.
--- NOTE | 2019-07-06 20:00 | NUR ---
Dr. Stephens at bedside.
[2019-07-06] MEDS ORDERED: MORPHINE 4 MG/ML INJ. SYRINGE IVP ONE (21:30)
[2019-07-06 21:45] VITALS: BP_SYST 136
--- NOTE | 2019-07-06 21:45 | NUR ---
Patient given written and verbal discharge instructions and verbalizes understanding. ER MD discussed with patient the results and treatment provided. Patient in stable condition. ID arm band removed. IV catheter removed intact and dressing applied, no active bleeding. Patient educated on pain management and to follow up with PMD. Pain Scale 1/10. Opportunity for questions provided and answered. Medication side effect fact sheet provided.
== END 2019-07-06 21:45 | disposition home or self-care (01) ==
LOC: SED 17:13
DX: E83.42 Hypomagnesemia (principal); I10 Essential (primary) hypertension; Z88.0 Allergy status to penicillin; Z91.018 Allergy to other foods
CPT/HCPCS: 96365; 96366; 96375; 96376; 99283; J1200; J2060; J2270 ×2; J3475; J7060

== ENCOUNTER 2019-07-09 22:57 | Emergency (ER) | payer OTHER ==
[~2019-07-09] VITALS: Ht 162.6 cm; Wt 104.3 kg
--- NOTE | 2019-07-09 23:03 | NUR ---
Placed in room 3 . Placed on professor of pathology, blood pressure machine and pulse oximeter. To gown for exam. Side rails up.
[2019-07-09 23:05] VITALS: BP_SYST 122; BP_SYST 14
--- NOTE | 2019-07-09 23:10 | NUR ---
Pt is AAO x 4 and ambulatory. Pt complains of bilateral leg pain, 10/10 since earlier this morning. Pt states she does not have any pain medication at home and that pain is unbearable. Per patient, she had vomited 4 times today. No other injuries/complaints per patient or noted.
[2019-07-09] MEDS ORDERED: MORPHINE 4 MG/ML INJ. SYRINGE IVP ONE (23:15)
[2019-07-09] MEDS ORDERED: DIPHENHYDRAMINE INJ 50 MG/ML VIAL IVP ONE (23:15)
[2019-07-09] MEDS ORDERED: NACL 0.9% 1,000 ML IV ONE (23:15)
[2019-07-09] MEDS ORDERED: MAGNESIUM SULFATE 50 ML IV ONE (23:15)
--- NOTE | 2019-07-09 23:15 | NUR ---
# 22 gauge angiocath placed to LT Finger. Use of asceptic technique. Opsite placed over site. Flushed with 10 cc of normal saline. No evidence of infiltration noted. Patient tolerated well.
--- NOTE | 2019-07-09 23:17 | NUR ---
md Steven Franco at bedside examining patient.
--- NOTE | 2019-07-09 23:22 | NUR ---
Medications were given, pt tolerated well. No adverse reaction, will continue to monitor.
[2019-07-09 23:39] LABS: CALCIUM 9.1 mg/dL (8.4-11.0); CREATININE 1.1 mg/dL (0.55-1.30); POTASSIUM 3.7 mmol/L (3.5-5.1)
[2019-07-09 23:43] LABS: PHOSPHORUS 2.9 mg/dL (2.7-4.5)
[2019-07-09] MEDS ORDERED: ONDANSETRON HCL 4 MG/2 ML VIAL IVP ONE (23:45)
[2019-07-10] MEDS ORDERED: KETOROLAC TROMETHAMINE 30 MG VIAL IVP ONE (01:00)
[2019-07-10] MEDS ORDERED: MORPHINE 2 MG/ML INJ. SYRINGE IVP ONE (01:00)
[2019-07-10 01:26] VITALS: BP_SYST 135
== END 2019-07-10 01:26 | disposition home or self-care (01) ==
LOC: SED 22:57
DX: M79.18 Myalgia, other site (principal); I10 Essential (primary) hypertension; Z88.0 Allergy status to penicillin; Z91.018 Allergy to other foods; Z79.899 Other long term (current) drug therapy
CPT/HCPCS: 36415; 80048; 83735; 84100; 96365; 96366; 96375 ×2; 96376; 99283; J1200; J1885; J2270 ×2; J2405; J3475; J7030

== ENCOUNTER 2019-07-12 00:24 | Emergency (ER) | payer OTHER ==
[~2019-07-12] VITALS: Ht 162.6 cm; Wt 104.3 kg
[2019-07-12 00:30] VITALS: BP_SYST 124
[2019-07-12] MEDS ORDERED: NACL 0.9% 1,000 ML IV ONE (00:55)
[2019-07-12] MEDS ORDERED: MAGNESIUM SULFATE 4 GM in D5W 250 ML IV ONE (01:00)
[2019-07-12 01:14] LABS: BASOPHILS # (AUTO) 0.1 K/uL (0.0-0.2); EOSINOPHILS # (AUTO) 0.2 K/uL (0.0-0.4); EOSINOPHILS % (AUTO) 1.6 % (0.0-4.0); HEMATOCRIT 37.3 % (36-48); LYMPHOCYTES # (AUTO) 3.7 K/uL (1.0-5.5); LYMPHOCYTES % (AUTO) 34.3 % (20.5-51.5); MEAN CORPUSCULAR HEMOGLOBIN 25 pg (27-31); MEAN CORPUSCULAR HGB CONC 32 % (32-36); MEAN CORPUSCULAR VOLUME 79 fL (79.0-98.0); MONOCYTES # (AUTO) 0.4 K/uL (0.0-1.0); NEUTROPHILS # (AUTO) 6.3 K/uL (1.8-7.7); NEUTROPHILS % (AUTO) 59.1 % (40.0-70.0); PLATELET COUNT (AUTO) 482 K/uL (130-430); RED BLOOD CELL COUNT(AUTO) 4.74 MIL/uL (4.2-6.2); WHITE BLOOD COUNT (AUTO) 10.7 K/uL (4.8-10.8)
[2019-07-12] MEDS ORDERED: MAGNESIUM SULFATE 1 GM/2 ML VIAL ONE (01:20)
[2019-07-12 01:21] LABS: CALCIUM 9.8 mg/dL (8.4-11.0); CHLORIDE 100 mmol/L (98-107); GLUCOSE 141 mg/dL (70-99); POTASSIUM 3.7 mmol/L (3.5-5.1); SODIUM SERUM 134 mmol/L (136-145); UREA NITROGEN, BLOOD 11 mg/dL (8-21)
[2019-07-12 01:26] LABS: PROTHROMBIN TIME 9.8 SECS (9.5-12.5)
[2019-07-12 01:28] LABS: ALANINE AMINOTRANSFERASE 28 U/L (12-78); ALBUMIN 4.4 g/dL (3.4-4.8); ANION GAP 4 (5-15); ASPARTATE AMINOTRANSFERASE 17 U/L (10-37); TOTAL BILIRUBIN 0.3 mg/dL (0.0-1.0)
[2019-07-12] MEDS ORDERED: DIPHENHYDRAMINE INJ 50 MG/ML VIAL IVP ONE ×2 (01:30→06:00)
[2019-07-12] MEDS ORDERED: MORPHINE 4 MG/ML INJ. SYRINGE IVP ONE ×2 (01:30→06:00)
[2019-07-12 01:31] LABS: ALCOHOL, BLOOD < 3 mg/dL (<10); GFR AFRICAN AMERICAN 67 mL/min (>90)
[2019-07-12 04:56] LABS: BILIRUBIN,URINE NEGATIVE (NEGATIVE); BLOOD, URINE NEGATIVE (NEGATIVE); CLARITY/URINE CLEAR (CLEAR); COLOR,URINE YELLOW (YELLOW); GLUCOSE,URINE NEGATIVE (NEGATIVE); KETONES,URINE NEGATIVE (NEGATIVE); LEUKOCYTE ESTERASE ,URINE 1+ (NEGATIVE); NITRITE, URINE NEGATIVE (NEGATIVE); PROTEIN URINE NEGATIVE (NEGATIVE); UROBILINOGEN,URINE 0.2 (0.2-1.0)
[2019-07-12 05:04] LABS: BACTERIA,URINE FEW /HPF (None Seen); RBC,URINE 0-3 /HPF (0-3)
[2019-07-12 05:16] LABS: BENZODIAZEPINE, URINE POSITIVE (NEG <=150); OPIATE, URINE POSITIVE (NEG <=100)
[2019-07-12 05:17] LABS: BARBITURATE, URINE NEGATIVE (NEG <=200); CANNABINOID, URINE NEGATIVE (NEG <=50); COCAINE, URINE NEGATIVE (NEG <=150); METHAMPHETAMINES SCREEN,URINE NEGATIVE (NEG <=500); PHENCYCLIDINE SCREEN,URINE NEGATIVE (NEG <=25); URINE AMPHETAMINE NEGATIVE (NEG <=500); URINE METHADONE NEGATIVE (NEG <=200)
[2019-07-12 05:18] LABS: UR TRICYCLIC ANTIDEPRESSANTS NEGATIVE (NEG <=300); URINE OXYCODONE SCREEN NEGATIVE (NEG <=100); URINE PROPOXYPHENE SCREEN NEGATIVE (NEG <=300)
[2019-07-12 06:30] VITALS: BP_SYST 122
== END 2019-07-12 06:30 | disposition home or self-care (01) ==
LOC: SED 00:24
DX: M79.661 Pain in right lower leg (principal); M79.662 Pain in left lower leg; M25.512 Pain in left shoulder; I10 Essential (primary) hypertension; Z88.0 Allergy status to penicillin; Z91.018 Allergy to other foods; Z79.899 Other long term (current) drug therapy
CPT/HCPCS: 36415; 70450; 71045; 73030; 80053; 80307; 81000; 83735; 84484; 85025; 85610; 85730; 87086; 93005; 96365; 96366; 96375; 96376; 99284; G0482; J1200; J2270; J3475; J7030

== ENCOUNTER 2019-07-17 23:08 | Inpatient (IN) | payer OTHER ==
[~2019-07-17] VITALS: Ht 162.6 cm; Wt 112.9 kg
[2019-07-17 23:08] VITALS: BP_SYST 114
[2019-07-17 23:54] LABS: POTASSIUM 3.6 mmol/L (3.5-5.1)
[2019-07-18] MEDS ORDERED: MORPHINE 4 MG/ML INJ. SYRINGE IVP ONE (00:15)
[2019-07-18] MEDS ORDERED: ONDANSETRON HCL 4 MG/2 ML VIAL IVP ONE ×2 (00:15→11:35)
[2019-07-18] MEDS ORDERED: MAGNESIUM SULFATE 4 GM in D5W 250 ML IV ONE (00:15)
[2019-07-18] MEDS ORDERED: DIPHENHYDRAMINE INJ 50 MG/ML VIAL IVP ONE (00:15)
[2019-07-18] MEDS ORDERED: MAGNESIUM SULFATE 1 GM/2 ML VIAL ONE (00:35)
[2019-07-18] MEDS ORDERED: MORPHINE 2 MG/ML INJ. SYRINGE IVP ONE (02:00)
[2019-07-18] MEDS ORDERED: LORazepam 2 MG/ML VIAL IVP ONE (04:00)
[2019-07-18 06:09] LABS: BASOPHILS # (AUTO) 0.1 K/uL (0.0-0.2); BASOPHILS % (AUTO) 0.8 % (0.0-2.0); EOSINOPHILS # (AUTO) 0.1 K/uL (0.0-0.4); EOSINOPHILS % (AUTO) 0.4 % (0.0-4.0); HEMATOCRIT 35.1 % (36-48); HEMOGLOBIN 11.1 g/dL (12.0-16.0); LYMPHOCYTES # (AUTO) 5.3 K/uL (1.0-5.5); LYMPHOCYTES % (AUTO) 31.2 % (20.5-51.5); MEAN CORPUSCULAR HEMOGLOBIN 25 pg (27-31); MEAN CORPUSCULAR HGB CONC 32 % (32-36); MEAN CORPUSCULAR VOLUME 79 fL (79.0-98.0); MONOCYTES # (AUTO) 1.2 K/uL (0.0-1.0); MONOCYTES % (AUTO) 6.8 % (1.7-9.3); NEUTROPHILS # (AUTO) 10.3 K/uL (1.8-7.7); NEUTROPHILS % (AUTO) 60.8 % (40.0-70.0); PLATELET COUNT (AUTO) 410 K/uL (130-430); RED BLOOD CELL COUNT(AUTO) 4.47 MIL/uL (4.2-6.2); RED CELL DISTRIBUTION WIDTH 16.9 % (9.0-15.0)
[2019-07-18 06:13] LABS: CALCIUM 8.8 mg/dL (8.4-11.0); CREATININE 1.14 mg/dL (0.55-1.30); POTASSIUM 4.5 mmol/L (3.5-5.1)
[2019-07-18 06:19] LABS: ALBUMIN 3.6 g/dL (3.4-4.8); TOTAL BILIRUBIN 0.3 mg/dL (0.0-1.0)
[2019-07-18] MEDS ORDERED: NACL 0.9% 1,000 ML IV ONE (06:45)
[2019-07-18 07:45] LABS: BILIRUBIN,URINE NEGATIVE (NEGATIVE); BLOOD, URINE NEGATIVE (NEGATIVE); COLOR,URINE YELLOW (YELLOW); GLUCOSE,URINE NEGATIVE (NEGATIVE); KETONES,URINE NEGATIVE (NEGATIVE); LEUKOCYTE ESTERASE ,URINE NEGATIVE (NEGATIVE); NITRITE, URINE NEGATIVE (NEGATIVE); PROTEIN URINE NEGATIVE (NEGATIVE); UROBILINOGEN,URINE 0.2 (0.2-1.0)
[2019-07-18 07:47] LABS: CLARITY/URINE SLIGHTLY HAZY (CLEAR)
[2019-07-18 08:04] LABS: BARBITURATE, URINE NEGATIVE (NEG <=200); BENZODIAZEPINE, URINE POSITIVE (NEG <=150); CANNABINOID, URINE NEGATIVE (NEG <=50); COCAINE, URINE NEGATIVE (NEG <=150); METHAMPHETAMINES SCREEN,URINE NEGATIVE (NEG <=500); OPIATE, URINE POSITIVE (NEG <=100); PHENCYCLIDINE SCREEN,URINE NEGATIVE (NEG <=25); UR TRICYCLIC ANTIDEPRESSANTS NEGATIVE (NEG <=300); URINE AMPHETAMINE NEGATIVE (NEG <=500); URINE METHADONE NEGATIVE (NEG <=200); URINE OXYCODONE SCREEN NEGATIVE (NEG <=100); URINE PROPOXYPHENE SCREEN NEGATIVE (NEG <=300)
[2019-07-18] MEDS ORDERED: DIPHENHYDRAMINE INJ 50 MG/ML VIAL ONE (08:06)
[2019-07-18] MEDS: DIPHENHYDRAMINE INJ 50 MG/ML VIAL IVP PRN ×4 (08:21→20:57)
[2019-07-18] MEDS: ONDANSETRON HCL 4 MG/2 ML VIAL IVP PRN ×4 (08:22→20:57)
[2019-07-18] MEDS: MORPHINE 4 MG/ML INJ. SYRINGE IVP PRN ×4 (08:22→20:58)
[2019-07-18] MEDS ORDERED: SEVOFLURANE 15 MIN GAS INH ONE (11:35)
[2019-07-18] MEDS ORDERED: MIDAZOLAM HCL 5 MG/5 ML VIAL IVP ONE (11:35)
[2019-07-18] MEDS ORDERED: ROCURONIUM BROMIDE 10 MG/ML (ZEMURON) IV ONE (11:35)
[2019-07-18] MEDS ORDERED: NS 1000 ML IV.SOLN IV ONE ×2 (11:35)
[2019-07-18] MEDS ORDERED: fentaNYL CITRATE/PF 100 MCG/2 ML AMP IVP ONE (11:35)
[2019-07-18] MEDS ORDERED: HEPARIN SODIUM,PORCINE 10,000 UNIT/ML VIAL IV ONE (11:35)
[2019-07-18] MEDS ORDERED: BUPIVACAINE /EPINEPHRINE/PF 0.5% 30 ML VIAL INJ ONE (11:35)
[2019-07-18] MEDS ORDERED: PROPOFOL 200MG/ 20ML VIAL (DIPRIVAN) IV ONE (11:35)
[2019-07-18 12:21] VITALS: BP_SYST 120
[2019-07-18] MEDS ORDERED: FLU VACC TS2019(65UP)/MF59C/PF 45 MCG/0.5 ML SYRINGE I.M. PRN (12:45)
[2019-07-18] MEDS ORDERED: COLCHICINE 0.6 MG TABLET PO PRN (13:00)
[2019-07-18] MEDS ORDERED: POTASSIUM CHLORIDE 40 MEQ PO SCH (13:00)
[2019-07-18] MEDS ORDERED: MORPHINE SULFATE 30 MG Immediate Release TABLET PO PRN (13:00)
[2019-07-18] MEDS ORDERED: CYCLOBENZAPRINE HCL 10 MG TABLET (FLEXERIL) PO ONE (13:30)
[2019-07-18] MEDS ORDERED: SPIRONOLACTONE 50 MG TABLET (ALDACTONE) PO ONE (13:30)
[2019-07-18] MEDS ORDERED: CHOLECALCIFEROL (VITAMIN D3) 2,000 UNIT TABLET PO ONE (13:30)
[2019-07-18] MEDS ORDERED: DULoxetine HCL 30 MG CAPSULE.DR (CYMBALTA) PO ONE (13:30)
[2019-07-18] MEDS ORDERED: PANTOPRAZOLE SODIUM 40 MG TAB PO ONE (13:30)
[2019-07-18] MEDS ORDERED: aMILoride HCL 5 MG TABLET PO ONE (14:00)
[2019-07-18] MEDS ORDERED: MAGNESIUM CHLORIDE 64 MG TABLET.DR PO ONE (14:00)
[2019-07-18] MEDS: LORazepam 1 MG TABLET PO PRN (14:14)
[2019-07-18] MEDS ORDERED: TEMAZEPAM 15 MG CAPSULE PO PRN (16:00)
[2019-07-18 16:34] VITALS: BP_SYST 131
[2019-07-18] MEDS: MAGNESIUM CHLORIDE 64 MG TABLET.DR PO SCH ×2 (17:54→21:09)
[2019-07-18] MEDS: POTASSIUM CHLORIDE 20 MEQ TAB.PRT.SR PO SCH ×2 (17:54→20:59)
[2019-07-18 20:00] VITALS: BP_SYST 126
[2019-07-18] MEDS: CYCLOBENZAPRINE HCL 10 MG TABLET (FLEXERIL) PO SCH (20:59)
[2019-07-18] MEDS: CHOLECALCIFEROL (VITAMIN D3) 2,000 UNIT TABLET PO SCH (20:59)
[2019-07-18] MEDS: aMILoride HCL 5 MG TABLET PO SCH (21:07)
[2019-07-19] VITALS: BP_SYST 116
[2019-07-19] MEDS: DIPHENHYDRAMINE INJ 50 MG/ML VIAL IVP PRN ×6 (01:06→22:14)
[2019-07-19] MEDS: ONDANSETRON HCL 4 MG/2 ML VIAL IVP PRN ×6 (01:06→22:13)
[2019-07-19] MEDS: MORPHINE 4 MG/ML INJ. SYRINGE IVP PRN ×6 (01:07→22:15)
[2019-07-19 07:38] LABS: BASOPHILS # (AUTO) 0.1 K/uL (0.0-0.2); BASOPHILS % (AUTO) 0.6 % (0.0-2.0); EOSINOPHILS # (AUTO) 0.2 K/uL (0.0-0.4); EOSINOPHILS % (AUTO) 1.6 % (0.0-4.0); HEMATOCRIT 30.2 % (36-48); HEMOGLOBIN 9.8 g/dL (12.0-16.0); LYMPHOCYTES # (AUTO) 4.3 K/uL (1.0-5.5); LYMPHOCYTES % (AUTO) 31.6 % (20.5-51.5); MEAN CORPUSCULAR HEMOGLOBIN 25 pg (27-31); MEAN CORPUSCULAR HGB CONC 32 % (32-36); MEAN CORPUSCULAR VOLUME 78 fL (79.0-98.0); MONOCYTES # (AUTO) 0.8 K/uL (0.0-1.0); MONOCYTES % (AUTO) 6.2 % (1.7-9.3); NEUTROPHILS # (AUTO) 8.2 K/uL (1.8-7.7); PLATELET COUNT (AUTO) 337 K/uL (130-430); RED CELL DISTRIBUTION WIDTH 16.4 % (9.0-15.0); WHITE BLOOD COUNT (AUTO) 13.6 K/uL (4.8-10.8)
[2019-07-19 07:57] LABS: ALBUMIN 3.3 g/dL (3.4-4.8); CALCIUM 8.4 mg/dL (8.4-11.0); CREATININE 1.06 mg/dL (0.55-1.30); PHOSPHORUS 4.3 mg/dL (2.7-4.5); TOTAL BILIRUBIN 0.4 mg/dL (0.0-1.0)
[2019-07-19 08:33] VITALS: BP_SYST 105
[2019-07-19] MEDS: PANTOPRAZOLE SODIUM 40 MG TAB PO SCH (09:28)
[2019-07-19] MEDS: POTASSIUM CHLORIDE 20 MEQ TAB.PRT.SR PO SCH ×4 (09:28→22:12)
[2019-07-19] MEDS: DULoxetine HCL 30 MG CAPSULE.DR (CYMBALTA) PO SCH (09:28)
[2019-07-19] MEDS: CYCLOBENZAPRINE HCL 10 MG TABLET (FLEXERIL) PO SCH ×2 (09:28→22:12)
[2019-07-19] MEDS: CHOLECALCIFEROL (VITAMIN D3) 2,000 UNIT TABLET PO SCH ×2 (09:28→22:12)
[2019-07-19] MEDS: SPIRONOLACTONE 50 MG TABLET (ALDACTONE) PO SCH (09:29)
[2019-07-19] MEDS: aMILoride HCL 5 MG TABLET PO SCH ×2 (09:39→22:11)
[2019-07-19] MEDS: MAGNESIUM CHLORIDE 64 MG TABLET.DR PO SCH ×4 (09:40→22:11)
[2019-07-19 12:00] VITALS: BP_SYST 124
[2019-07-19] MEDS ORDERED: MAGNESIUM SULFATE 4 GM in D5W 250 ML IV ONE (12:45)
[2019-07-19 13:08] LABS: TOTAL IRON BIND. CAPACITY 467 ug/dL (250-450)
[2019-07-19 16:00] VITALS: BP_SYST 126
[2019-07-19] MEDS: MENTHOL/ZINC OXIDE 113 GM OINT. TP PRN (17:48)
[2019-07-19 20:00] VITALS: BP_SYST 127
[2019-07-20] MEDS: MORPHINE 4 MG/ML INJ. SYRINGE IVP PRN ×5 (02:52→19:59)
[2019-07-20] MEDS: ONDANSETRON HCL 4 MG/2 ML VIAL IVP PRN ×5 (02:52→19:57)
[2019-07-20] MEDS: DIPHENHYDRAMINE INJ 50 MG/ML VIAL IVP PRN ×5 (02:53→19:57)
[2019-07-20 07:20] LABS: INR 0.9 (0.8-1.2); PROTHROMBIN TIME 9.5 SECS (9.5-12.5)
[2019-07-20 07:22] LABS: BASOPHILS # (AUTO) 0.1 K/uL (0.0-0.2); BASOPHILS % (AUTO) 0.9 % (0.0-2.0); EOSINOPHILS # (AUTO) 0.3 K/uL (0.0-0.4); EOSINOPHILS % (AUTO) 2.2 % (0.0-4.0); LYMPHOCYTES # (AUTO) 4.1 K/uL (1.0-5.5); LYMPHOCYTES % (AUTO) 31.7 % (20.5-51.5); MEAN CORPUSCULAR HEMOGLOBIN 25 pg (27-31); MEAN CORPUSCULAR HGB CONC 32 % (32-36); MEAN CORPUSCULAR VOLUME 79 fL (79.0-98.0); MONOCYTES # (AUTO) 0.5 K/uL (0.0-1.0); MONOCYTES % (AUTO) 3.6 % (1.7-9.3); NEUTROPHILS # (AUTO) 7.9 K/uL (1.8-7.7); NEUTROPHILS % (AUTO) 61.6 % (40.0-70.0); PLATELET COUNT (AUTO) 319 K/uL (130-430); RED BLOOD CELL COUNT(AUTO) 3.95 MIL/uL (4.2-6.2); RED CELL DISTRIBUTION WIDTH 16.4 % (9.0-15.0); WHITE BLOOD COUNT (AUTO) 12.8 K/uL (4.8-10.8)
[2019-07-20 07:37] LABS: CALCIUM 8.6 mg/dL (8.4-11.0); CREATININE 1.06 mg/dL (0.55-1.30); POTASSIUM 4.1 mmol/L (3.5-5.1); THYROID STIMULATING HORMONE 2.19 uIu/mL (0.36-3.74)
[2019-07-20 07:45] VITALS: BP_SYST 139
[2019-07-20] MEDS: CHOLECALCIFEROL (VITAMIN D3) 2,000 UNIT TABLET PO SCH ×2 (09:20→22:38)
[2019-07-20] MEDS: POTASSIUM CHLORIDE 20 MEQ TAB.PRT.SR PO SCH ×4 (09:20→22:38)
[2019-07-20] MEDS: CYCLOBENZAPRINE HCL 10 MG TABLET (FLEXERIL) PO SCH ×2 (09:20→22:38)
[2019-07-20] MEDS: SPIRONOLACTONE 50 MG TABLET (ALDACTONE) PO SCH (09:21)
[2019-07-20] MEDS: PANTOPRAZOLE SODIUM 40 MG TAB PO SCH (09:21)
[2019-07-20] MEDS: aMILoride HCL 5 MG TABLET PO SCH ×2 (09:21→22:39)
[2019-07-20] MEDS: MAGNESIUM CHLORIDE 64 MG TABLET.DR PO SCH ×4 (09:23→22:39)
[2019-07-20] MEDS: DULoxetine HCL 30 MG CAPSULE.DR (CYMBALTA) PO SCH (09:23)
[2019-07-20 12:00] VITALS: BP_SYST 102
[2019-07-20] MEDS ORDERED: MAGNESIUM SULFATE 50 ML IV ONE (12:00)
[2019-07-20] MEDS: MENTHOL/ZINC OXIDE 113 GM OINT. TP PRN ×2 (12:02→22:32)
[2019-07-20] MEDS: SOD FERRIC GLUC COMPLEX/SUC 125 MG in NS 100 ML IV SCH (15:36)
[2019-07-20 16:00] VITALS: BP_SYST 103
[2019-07-20 20:00] VITALS: BP_SYST 105
[2019-07-21] MEDS: ONDANSETRON HCL 4 MG/2 ML VIAL IVP PRN ×6 (00:16→22:46)
[2019-07-21] MEDS: MORPHINE 4 MG/ML INJ. SYRINGE IVP PRN ×6 (00:16→22:47)
[2019-07-21] MEDS: DIPHENHYDRAMINE INJ 50 MG/ML VIAL IVP PRN ×6 (00:17→22:47)
[2019-07-21 00:34] VITALS: BP_SYST 101
[2019-07-21] MEDS: LORazepam 1 MG TABLET PO PRN (02:16)
[2019-07-21 07:17] LABS: BASOPHILS % (AUTO) 0.4 % (0.0-2.0); EOSINOPHILS # (AUTO) 0.3 K/uL (0.0-0.4); EOSINOPHILS % (AUTO) 2.3 % (0.0-4.0); HEMATOCRIT 30.8 % (36-48); HEMOGLOBIN 9.7 g/dL (12.0-16.0); LYMPHOCYTES % (AUTO) 32.1 % (20.5-51.5); MEAN CORPUSCULAR HEMOGLOBIN 25 pg (27-31); MEAN CORPUSCULAR HGB CONC 32 % (32-36); MEAN CORPUSCULAR VOLUME 78 fL (79.0-98.0); MONOCYTES # (AUTO) 0.7 K/uL (0.0-1.0); MONOCYTES % (AUTO) 5.5 % (1.7-9.3); NEUTROPHILS # (AUTO) 7.4 K/uL (1.8-7.7); NEUTROPHILS % (AUTO) 59.7 % (40.0-70.0); PLATELET COUNT (AUTO) 332 K/uL (130-430); RED BLOOD CELL COUNT(AUTO) 3.93 MIL/uL (4.2-6.2); RED CELL DISTRIBUTION WIDTH 16.4 % (9.0-15.0); WHITE BLOOD COUNT (AUTO) 12.5 K/uL (4.8-10.8)
[2019-07-21 07:31] LABS: ALBUMIN 3.3 g/dL (3.4-4.8); CALCIUM 8.5 mg/dL (8.4-11.0); CREATININE 1.11 mg/dL (0.55-1.30); POTASSIUM 4.1 mmol/L (3.5-5.1); TOTAL BILIRUBIN 0.3 mg/dL (0.0-1.0)
[2019-07-21 08:09] VITALS: BP_SYST 106
[2019-07-21] MEDS ORDERED: MAGNESIUM SULFATE 4 GM in D5W 250 ML IV ONE (08:45)
[2019-07-21] MEDS: POTASSIUM CHLORIDE 20 MEQ TAB.PRT.SR PO SCH ×4 (09:00→20:16)
[2019-07-21] MEDS: MAGNESIUM CHLORIDE 64 MG TABLET.DR PO SCH ×4 (09:00→20:17)
[2019-07-21 11:08] LABS: ERYTHROCYTE SEDIMENTATION RATE 20 MM/HR (0-20)
[2019-07-21] MEDS ORDERED: POLYMYXIN 500,000/BACIT.10,000 UNITS in NS IRR 1 L IR ONE (12:09)
[2019-07-21] MEDS ORDERED: NACL 0.9% 1,000 ML IV SCH (12:31)
[2019-07-21] MEDS ORDERED: HYDROmorphone 1 MG INJ. 1 MG/ML AMPUL IVP PRN ×2 (12:45)
[2019-07-21] MEDS ORDERED: HYDROmorphone 2 MG/ML VIAL IVP PRN (12:45)
[2019-07-21] MEDS ORDERED: METOCLOPRAMIDE HCL 10 MG/2 ML VIAL IVP PRN (12:45)
[2019-07-21] MEDS ORDERED: HYDROcodone/ACETAMIN 5-325 MG TAB (NORCO/ VICODIN) PO PRN (13:00)
[2019-07-21] MEDS ORDERED: HYDROmorphone 2 MG/ML VIAL ONE (13:29)
[2019-07-21 13:50] VITALS: BP_SYST 114
[2019-07-21] MEDS: DULoxetine HCL 30 MG CAPSULE.DR (CYMBALTA) PO SCH (14:09)
[2019-07-21] MEDS: PANTOPRAZOLE SODIUM 40 MG TAB PO SCH (14:09)
[2019-07-21] MEDS: CHOLECALCIFEROL (VITAMIN D3) 2,000 UNIT TABLET PO SCH ×2 (14:09→20:16)
[2019-07-21] MEDS: aMILoride HCL 5 MG TABLET PO SCH ×2 (14:10→20:16)
[2019-07-21] MEDS: SOD FERRIC GLUC COMPLEX/SUC 125 MG in NS 100 ML IV SCH (14:10)
[2019-07-21] MEDS: SPIRONOLACTONE 50 MG TABLET (ALDACTONE) PO SCH (14:10)
[2019-07-21] MEDS: CYCLOBENZAPRINE HCL 10 MG TABLET (FLEXERIL) PO SCH ×2 (14:10→20:16)
[2019-07-21 16:35] VITALS: BP_SYST 127
[2019-07-21 20:00] VITALS: BP_SYST 95
[2019-07-21] MEDS: CEFEPIME 1 GM in D5W 50 ML IV SCH (20:16)
[2019-07-22] VITALS (7 sets, daily range): BP systolic 94–149
[2019-07-22] MEDS: LORazepam 1 MG TABLET PO PRN ×2 (01:01→10:40)
[2019-07-22] MEDS: DIPHENHYDRAMINE INJ 50 MG/ML VIAL IVP PRN ×6 (02:30→22:21)
[2019-07-22] MEDS: ONDANSETRON HCL 4 MG/2 ML VIAL IVP PRN ×6 (02:30→22:21)
[2019-07-22] MEDS: MORPHINE 4 MG/ML INJ. SYRINGE IVP PRN ×5 (02:31→22:24)
[2019-07-22 07:18] LABS: BASOPHILS # (AUTO) 0.1 K/uL (0.0-0.2); BASOPHILS % (AUTO) 0.7 % (0.0-2.0); EOSINOPHILS # (AUTO) 0.3 K/uL (0.0-0.4); EOSINOPHILS % (AUTO) 2.8 % (0.0-4.0); HEMATOCRIT 27.6 % (36-48); HEMOGLOBIN 8.8 g/dL (12.0-16.0); LYMPHOCYTES # (AUTO) 3.2 K/uL (1.0-5.5); LYMPHOCYTES % (AUTO) 26.3 % (20.5-51.5); MEAN CORPUSCULAR HEMOGLOBIN 25 pg (27-31); MEAN CORPUSCULAR HGB CONC 32 % (32-36); MEAN CORPUSCULAR VOLUME 79 fL (79.0-98.0); MONOCYTES # (AUTO) 0.9 K/uL (0.0-1.0); MONOCYTES % (AUTO) 7.1 % (1.7-9.3); NEUTROPHILS # (AUTO) 7.6 K/uL (1.8-7.7); NEUTROPHILS % (AUTO) 63.1 % (40.0-70.0); PLATELET COUNT (AUTO) 330 K/uL (130-430); RED BLOOD CELL COUNT(AUTO) 3.48 MIL/uL (4.2-6.2); RED CELL DISTRIBUTION WIDTH 16.8 % (9.0-15.0)
[2019-07-22 08:01] LABS: CALCIUM 8.2 mg/dL (8.4-11.0); CREATININE 1.01 mg/dL (0.55-1.30); PHOSPHORUS 2.8 mg/dL (2.7-4.5)
[2019-07-22] MEDS ORDERED: MAGNESIUM SULFATE 4 GM in D5W 250 ML IV ONE (09:45)
[2019-07-22] MEDS: MAGNESIUM CHLORIDE 64 MG TABLET.DR PO SCH ×4 (10:58→20:40)
[2019-07-22] MEDS: aMILoride HCL 5 MG TABLET PO SCH ×2 (10:58→20:39)
[2019-07-22] MEDS: POTASSIUM CHLORIDE 20 MEQ TAB.PRT.SR PO SCH ×4 (10:59→20:40)
[2019-07-22] MEDS: CYCLOBENZAPRINE HCL 10 MG TABLET (FLEXERIL) PO SCH ×2 (11:00→20:40)
[2019-07-22] MEDS: CHOLECALCIFEROL (VITAMIN D3) 2,000 UNIT TABLET PO SCH ×2 (11:00→20:40)
[2019-07-22] MEDS: SPIRONOLACTONE 50 MG TABLET (ALDACTONE) PO SCH (11:00)
[2019-07-22] MEDS: DULoxetine HCL 30 MG CAPSULE.DR (CYMBALTA) PO SCH (11:00)
[2019-07-22] MEDS: PANTOPRAZOLE SODIUM 40 MG TAB PO SCH (11:00)
[2019-07-22] MEDS: SOD FERRIC GLUC COMPLEX/SUC 125 MG in NS 100 ML IV SCH (11:02)
[2019-07-22] MEDS: CEFEPIME 1 GM in D5W 50 ML IV SCH ×2 (11:25→20:38)
[2019-07-22] MEDS ORDERED: PANTOPRAZOLE SODIUM 40 MG/VIAL (PROTONIX) IVP ONE (16:45)
[2019-07-22] MEDS: PANTOPRAZOLE SODIUM 40 MG/VIAL (PROTONIX) IVP SCH (20:39)
[2019-07-23 00:36] VITALS: BP_SYST 109
[2019-07-23] MEDS: ONDANSETRON HCL 4 MG/2 ML VIAL IVP PRN ×5 (02:19→20:37)
[2019-07-23] MEDS: DIPHENHYDRAMINE INJ 50 MG/ML VIAL IVP PRN ×5 (02:19→20:37)
[2019-07-23] MEDS: MORPHINE 4 MG/ML INJ. SYRINGE IVP PRN ×6 (02:19→20:38)
[2019-07-23 06:07] LABS: BASOPHILS # (AUTO) 0.1 K/uL (0.0-0.2); BASOPHILS % (AUTO) 0.7 % (0.0-2.0); EOSINOPHILS # (AUTO) 0.3 K/uL (0.0-0.4); EOSINOPHILS % (AUTO) 2.6 % (0.0-4.0); HEMATOCRIT 27.9 % (36-48); HEMOGLOBIN 8.9 g/dL (12.0-16.0); LYMPHOCYTES # (AUTO) 2.8 K/uL (1.0-5.5); LYMPHOCYTES % (AUTO) 22.8 % (20.5-51.5); MEAN CORPUSCULAR HEMOGLOBIN 25 pg (27-31); MEAN CORPUSCULAR HGB CONC 32 % (32-36); MEAN CORPUSCULAR VOLUME 79 fL (79.0-98.0); MONOCYTES # (AUTO) 0.9 K/uL (0.0-1.0); MONOCYTES % (AUTO) 7.5 % (1.7-9.3); NEUTROPHILS # (AUTO) 8.1 K/uL (1.8-7.7); NEUTROPHILS % (AUTO) 66.4 % (40.0-70.0); PLATELET COUNT (AUTO) 314 K/uL (130-430); RED BLOOD CELL COUNT(AUTO) 3.53 MIL/uL (4.2-6.2); RED CELL DISTRIBUTION WIDTH 16.9 % (9.0-15.0); WHITE BLOOD COUNT (AUTO) 12.2 K/uL (4.8-10.8)
[2019-07-23 06:52] LABS: ALBUMIN 2.9 g/dL (3.4-4.8); CALCIUM 7.9 mg/dL (8.4-11.0); CREATININE 1.08 mg/dL (0.55-1.30); TOTAL BILIRUBIN 0.3 mg/dL (0.0-1.0)
[2019-07-23] MEDS: CEFEPIME 1 GM in D5W 50 ML IV SCH ×2 (09:18→20:31)
[2019-07-23] MEDS: PANTOPRAZOLE SODIUM 40 MG/VIAL (PROTONIX) IVP SCH ×2 (09:19→20:33)
[2019-07-23] MEDS: CHOLECALCIFEROL (VITAMIN D3) 2,000 UNIT TABLET PO SCH ×2 (09:19→20:31)
[2019-07-23] MEDS: POTASSIUM CHLORIDE 20 MEQ TAB.PRT.SR PO SCH ×4 (09:20→20:31)
[2019-07-23] MEDS: SPIRONOLACTONE 50 MG TABLET (ALDACTONE) PO SCH (09:20)
[2019-07-23] MEDS: MAGNESIUM CHLORIDE 64 MG TABLET.DR PO SCH ×4 (09:20→20:32)
[2019-07-23] MEDS: CYCLOBENZAPRINE HCL 10 MG TABLET (FLEXERIL) PO SCH ×2 (09:21→20:31)
[2019-07-23] MEDS: DULoxetine HCL 30 MG CAPSULE.DR (CYMBALTA) PO SCH (09:21)
[2019-07-23] MEDS: aMILoride HCL 5 MG TABLET PO SCH ×2 (09:24→20:32)
[2019-07-23] MEDS ORDERED: MAGNESIUM SULFATE 4 GM in D5W 250 ML IV ONE (11:15)
[2019-07-23] MEDS: SOD FERRIC GLUC COMPLEX/SUC 125 MG in NS 100 ML IV SCH (12:23)
[2019-07-23 13:14] VITALS: BP_SYST 122
[2019-07-23] MEDS ORDERED: DOXY100C PO (13:49)
[2019-07-23] MEDS ORDERED: BISACODYL 5 MG TABLET.DR (DULCOLAX) PO ONE (17:00)
[2019-07-23] MEDS ORDERED: GOLYTELY / COLYTE SOLUTION 4 LITERS PO ONE (18:00)
[2019-07-23 18:02] VITALS: BP_SYST 126
[2019-07-23 20:03] VITALS: BP_SYST 95
[2019-07-23] MEDS ORDERED: FLU VACC QS2019-20 36MOS UP/PF 60 MCG/0.5 ML SYRINGE I.M. PRN (21:00)
== END 2019-07-23 22:25 | disposition home health service (06) | DRG 871 ==
LOC: SED 23:08 → STU 07-18 07:08
PROVIDERS: ADMIT Internal Medicine; ATTEND Internal Medicine
PROC: 02HV33Z Insertion of Infusion Device into Superior Vena Cava, Percutaneous Approach (ICD-10-PCS; 2019-07-21)
PROC: B5181ZA Fluoroscopy of Superior Vena Cava using Low Osmolar Contrast, Guidance (ICD-10-PCS; 2019-07-21)
PROC: B548ZZA Ultrasonography of Superior Vena Cava, Guidance (ICD-10-PCS; 2019-07-21)
PROC: 0JH63XZ Insertion of Tunneled Vascular Access Device into Chest Subcutaneous Tissue and Fascia, Percutaneous Approach (ICD-10-PCS; principal; 2019-07-21 11:30)
DX: A41.9 Sepsis, unspecified organism (principal); J69.0 Pneumonitis due to inhalation of food and vomit; Z68.41 Body mass index [BMI] 40.0-44.9, adult; G40.909 Epilepsy, unspecified, not intractable, without status epilepticus; E03.9 Hypothyroidism, unspecified; D50.9 Iron deficiency anemia, unspecified; M79.7 Fibromyalgia; J45.909 Unspecified asthma, uncomplicated; E66.01 Morbid (severe) obesity due to excess calories; F32.9 Major depressive disorder, single episode, unspecified; G89.4 Chronic pain syndrome; F41.9 Anxiety disorder, unspecified; K64.8 Other hemorrhoids; N18.9 Chronic kidney disease, unspecified; I12.9 Hypertensive chronic kidney disease with stage 1 through stage 4 chronic kidney disease, or unspecified chronic kidney disease; M11.261 Other chondrocalcinosis, right knee; M11.262 Other chondrocalcinosis, left knee; E83.42 Hypomagnesemia; Z90.710 Acquired absence of both cervix and uterus; Z87.891 Personal history of nicotine dependence; Z87.440 Personal history of urinary (tract) infections; Z88.0 Allergy status to penicillin; Z91.018 Allergy to other foods; Z91.048 Other nonmedicinal substance allergy status; Z79.899 Other long term (current) drug therapy
CPT/HCPCS: 36415; 71045; 76000; 80048; 80053; 80307; 81003; 82272; 82728; 83540-TC; 83550-TC; 83605; 83615-TC; 83735-TC; 84100-TC; 84132-TC; 84443-TC; 84484; 85025; 85610-TC; 85651-TC; 85730-TC; 87040-TC; 87081; 93005; 94760; 95816; 96365; 96366; 96367; 96375; 99285; C1788; C9113; G0378; J0692; J1170; J1200; J1644; J1956; J2060; J2250; J2270; J2274; J2405; J2704; J2916; J3010; J3475; J3490; J7030; J7050; J7060

== ENCOUNTER 2019-07-29 19:27 | Emergency (ER) | payer OTHER ==
[~2019-07-29] VITALS: Ht 162.6 cm; Wt 106.6 kg
[~2019-07-29 19:27] MED LIST changes: +DOXY100C PO
[2019-07-29 19:41] VITALS: BP_SYST 118
--- NOTE | 2019-07-29 19:47 | NUR ---
ER at bedside examining patient.
--- NOTE | 2019-07-29 19:47 | NUR ---
Patient to ER bed 07 to gown for evaluation. Side rails up. Report given to ABHILASH ROMAN
--- NOTE | 2019-07-29 19:48 | NUR ---
PATIENT BROUGHT IN AMBULATORY COMPLAINING OF BILATERAL LEG PAIN AND NAUSEA STARTING TODAY. PAIN 9/10. RECENTLY ADMITTED BY DR HOLLY FOR SEIZURES. NO OTHER COMPLAINTS/INJURIES PER PATIENT OR NOTED. WILL CONTINUE TO MONITOR.
--- NOTE | 2019-07-29 19:50 | NUR ---
ACCESSED PORT O CATH ON RIGHT CHEST USING STERILE TECHNIQUE. PATIENT TOLERATED WELL.
[2019-07-29] MEDS ORDERED: MORPHINE 4 MG/ML INJ. SYRINGE IVP ONE ×2 (20:00→22:15)
[2019-07-29] MEDS ORDERED: DIPHENHYDRAMINE INJ 50 MG/ML VIAL IVP ONE ×2 (20:00→22:15)
[2019-07-29] MEDS ORDERED: ONDANSETRON HCL 4 MG/2 ML VIAL IVP ONE (20:00)
[2019-07-29] MEDS ORDERED: NACL 0.9% 1,000 ML IV ONE (20:15)
--- NOTE | 2019-07-29 20:28 | NUR ---
MEDICATED PER MD ORDERS. PATIENT TOLERATED WELL
[2019-07-29 20:30] LABS: BASOPHILS # (AUTO) 0.2 K/uL (0.0-0.2); BASOPHILS % (AUTO) 1.4 % (0.0-2.0); EOSINOPHILS # (AUTO) 0.3 K/uL (0.0-0.4); EOSINOPHILS % (AUTO) 2.4 % (0.0-4.0); HEMATOCRIT 38.6 % (36-48); HEMOGLOBIN 12.6 g/dL (12.0-16.0); LYMPHOCYTES % (AUTO) 24.8 % (20.5-51.5); MEAN CORPUSCULAR HEMOGLOBIN 26 pg (27-31); MEAN CORPUSCULAR HGB CONC 33 % (32-36); MEAN CORPUSCULAR VOLUME 81 fL (79.0-98.0); MONOCYTES # (AUTO) 1.1 K/uL (0.0-1.0); MONOCYTES % (AUTO) 8.8 % (1.7-9.3); NEUTROPHILS # (AUTO) 7.5 K/uL (1.8-7.7); NEUTROPHILS % (AUTO) 62.6 % (40.0-70.0); PLATELET COUNT (AUTO) 372 K/uL (130-430); RED CELL DISTRIBUTION WIDTH 18.4 % (9.0-15.0)
--- NOTE | 2019-07-29 20:31 | NUR ---
Patient complaining of pain to bilateral legs. MD notified. Pain 05/17. New orders placed.
[2019-07-29 20:40] LABS: CALCIUM 8.8 mg/dL (8.4-11.0); CREATININE 1.08 mg/dL (0.55-1.30); POTASSIUM 3.6 mmol/L (3.5-5.1); TOTAL BILIRUBIN 0.5 mg/dL (0.0-1.0)
[2019-07-29] MEDS ORDERED: MAGNESIUM SULFATE 4 GM in D5W 250 ML IV ONE (22:00)
[2019-07-29] MEDS ORDERED: MAGNESIUM SULFATE 1 GM/2 ML VIAL ONE (22:34)
--- NOTE | 2019-07-29 22:38 | NUR ---
Magnesium IVPB started. Patient tolerated well. Will continue to monitor.
--- NOTE | 2019-07-29 22:50 | NUR ---
Note jaime in EDM - 07/29/19 at 2257 by [email or web address] Patient complaining of pain to bilateral legs. notified. Pain 05/17. New orders placed.
--- NOTE | 2019-07-30 00:40 | NUR ---
Pt c/o generalized body aches. Dr. Watson notified.
[2019-07-30] MEDS ORDERED: MORPHINE 4 MG/ML INJ. SYRINGE IVP ONE (00:45)
[2019-07-30 01:40] VITALS: BP_SYST 116
--- NOTE | 2019-07-30 01:40 | NUR ---
Patient given written and verbal discharge instructions and verbalizes understanding. ER MD discussed with patient the results and treatment provided. Patient in stable condition. ID arm band removed. Alas needle removed from port-a-cath left chest wall, intact and dressing applied, no active bleeding. No Rx given. Patient educated on pain management and to follow up with PMD. Pain Scale 0/10. Opportunity for questions provided and answered. Medication side effect fact sheet provided.
== END 2019-07-30 01:40 | disposition home or self-care (01) ==
LOC: SED 19:27
DX: E83.42 Hypomagnesemia (principal); R25.2 Cramp and spasm; N15.8 Other specified renal tubulo-interstitial diseases; I10 Essential (primary) hypertension; Z88.0 Allergy status to penicillin; Z91.018 Allergy to other foods; Z79.899 Other long term (current) drug therapy
CPT/HCPCS: 36415; 80053; 83735; 85025; 96365; 96366; 96375; 96376 ×2; 99283; J1200; J2270 ×2; J2405; J3475; J7030

== ENCOUNTER 2019-08-03 02:28 | Emergency (ER) | payer OTHER ==
[~2019-08-03] VITALS: Ht 162.6 cm; Wt 106.6 kg
[2019-08-03 02:58] VITALS: BP_SYST 110
--- NOTE | 2019-08-03 03:05 | NUR ---
Patient to ER bed 7 to gown for evaluation. Side rails up.
--- NOTE | 2019-08-03 03:07 | NUR ---
ER Dr. Watson at bedside examining patient.
[2019-08-03] MEDS ORDERED: DIPHENHYDRAMINE INJ 50 MG/ML VIAL IVP ONE ×3 (03:15→09:15)
[2019-08-03] MEDS ORDERED: MORPHINE 2 MG/ML INJ. SYRINGE IVP ONE ×3 (03:15→06:15)
[2019-08-03] MEDS ORDERED: ONDANSETRON HCL 4 MG/2 ML VIAL IVP ONE ×2 (03:15→06:15)
[2019-08-03] MEDS ORDERED: NACL 0.9% 1,000 ML IV ONE (03:15)
--- NOTE | 2019-08-03 03:15 | NUR ---
Pt BIB family to ED C/O eg cramps started earlier today. patient is well-known to ED staff. patient has Gittleman's syndrome low magnesium. patient comes in for evaluation of leg cramps and magnesium replacement. patient states she had a port placed one half weeks ago was placed on antibiotics. since that time has had some diarrhea no blood within diarrhea no nausea vomiting no fevers. Right upper chest port site healing well no signs of infection. No other injuries and or complaints noted VSS no s/s of acute distress. Resting on gurney rails up
--- NOTE | 2019-08-03 04:20 | NUR ---
Multiple medications adm well tolerated, Pt states minimal effectiveness
[2019-08-03 04:26] LABS: BASOPHILS # (AUTO) 0.1 K/uL (0.0-0.2); BASOPHILS % (AUTO) 1.3 % (0.0-2.0); EOSINOPHILS # (AUTO) 0.1 K/uL (0.0-0.4); EOSINOPHILS % (AUTO) 0.9 % (0.0-4.0); HEMATOCRIT 36.1 % (36-48); HEMOGLOBIN 11.7 g/dL (12.0-16.0); LYMPHOCYTES # (AUTO) 2.6 K/uL (1.0-5.5); LYMPHOCYTES % (AUTO) 26.2 % (20.5-51.5); MEAN CORPUSCULAR HEMOGLOBIN 26 pg (27-31); MEAN CORPUSCULAR HGB CONC 32 % (32-36); MEAN CORPUSCULAR VOLUME 81 fL (79.0-98.0); MONOCYTES # (AUTO) 0.4 K/uL (0.0-1.0); MONOCYTES % (AUTO) 4.4 % (1.7-9.3); NEUTROPHILS # (AUTO) 6.7 K/uL (1.8-7.7); NEUTROPHILS % (AUTO) 67.2 % (40.0-70.0); PLATELET COUNT (AUTO) 384 K/uL (130-430); RED BLOOD CELL COUNT(AUTO) 4.44 MIL/uL (4.2-6.2); RED CELL DISTRIBUTION WIDTH 19.6 % (9.0-15.0)
[2019-08-03 04:40] LABS: CALCIUM 8.2 mg/dL (8.4-11.0); CREATININE 0.94 mg/dL (0.55-1.30); POTASSIUM 4.1 mmol/L (3.5-5.1)
[2019-08-03 04:45] LABS: ALBUMIN 3.6 g/dL (3.4-4.8); TOTAL BILIRUBIN 0.4 mg/dL (0.0-1.0)
--- NOTE | 2019-08-03 05:13 | NUR ---
Dr. Watson bedside for Pt update
[2019-08-03] MEDS ORDERED: MAGNESIUM SULFATE 4 GM in D5W 250 ML IV ONE (05:15)
[2019-08-03] MEDS ORDERED: MAGNESIUM SULFATE 1 GM/2 ML VIAL ONE (05:31)
--- NOTE | 2019-08-03 07:15 | NUR ---
Report recieved from ABHILASH Bunn for continuation of care. Patient is resting comfortably sitting on bedside. She reports that she fells good right now.
--- NOTE | 2019-08-03 07:20 | NUR ---
Patient ambulated to restroom.
[2019-08-03] MEDS ORDERED: KETOROLAC TROMETHAMINE 15 MG VIAL IVP ONE (07:45)
--- NOTE | 2019-08-03 07:45 | NUR ---
Patient is requesting pain medication be given prior to discharge.
[2019-08-03 09:20] VITALS: BP_SYST 135
--- NOTE | 2019-08-03 09:20 | NUR ---
Patient given written and verbal discharge instructions and verbalizes understanding. ER MD discussed with patient the results and treatment provided. Patient in stable condition. ID arm band removed. Port-a-cath access needle removed. Patient educated on pain management and to follow up with PMD. Pain Scale 0/10. Opportunity for questions provided and answered. Medication side effect fact sheet provided.
== END 2019-08-03 09:20 | disposition home or self-care (01) ==
LOC: SED 02:28
DX: E83.42 Hypomagnesemia (principal); R25.2 Cramp and spasm; N15.8 Other specified renal tubulo-interstitial diseases; R19.7 Diarrhea, unspecified; I10 Essential (primary) hypertension; Z88.0 Allergy status to penicillin; Z91.018 Allergy to other foods; Z79.899 Other long term (current) drug therapy
CPT/HCPCS: 36415; 80053; 82550; 83735; 85025; 96361; 96365; 96366; 96375; 96376; 99284; J1200; J1885; J2270; J2405; J3475; J7030

== ENCOUNTER 2019-08-06 00:35 | Emergency (ER) | payer OTHER ==
[~2019-08-06] VITALS: Ht 162.6 cm; Wt 108.9 kg
[2019-08-06 00:40] VITALS: BP_SYST 112
--- NOTE | 2019-08-06 00:40 | NUR ---
Patient triaged and placed in waiting room. VSS and patient appears in no acute distress at this time.awaiting available bed, and MD notified of need for MSE.
--- NOTE | 2019-08-06 02:04 | NUR ---
Patient to ER bed 6 to gown for evaluation. Side rails up. Report given to ANDREA HUNG.
--- NOTE | 2019-08-06 02:20 | NUR ---
Pt brought in by family member. 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 pt states that pain is 10/10. Pt states chronic leg pain due to low electrolytes, pt states she has history of gitlemans syndrome. Pt denies chest pain, nausea, vomiting, diarrhea, shortness of breath. Pt states that she took routine pain meds at 2000 (15mg morphine). Pt denies any other medical complaint at this time. Pt states that she has maday-cath recently placed in Right upper chest, and has been ok'd for use with medication administration, but not blood draws. Pt resting in ED bed. VSS
[2019-08-06] MEDS ORDERED: MORPHINE 2 MG/ML INJ. SYRINGE IVP ONE ×2 (02:30→04:45)
[2019-08-06] MEDS ORDERED: DIPHENHYDRAMINE INJ 50 MG/ML VIAL IVP ONE ×2 (02:30→04:45)
[2019-08-06] MEDS ORDERED: ONDANSETRON HCL 4 MG/2 ML VIAL IVP ONE (02:30)
[2019-08-06 02:53] LABS: BASOPHILS # (AUTO) 0.1 K/uL (0.0-0.2); BASOPHILS % (AUTO) 1.4 % (0.0-2.0); EOSINOPHILS # (AUTO) 0.1 K/uL (0.0-0.4); EOSINOPHILS % (AUTO) 1.2 % (0.0-4.0); HEMOGLOBIN 11.8 g/dL (12.0-16.0); LYMPHOCYTES # (AUTO) 2.7 K/uL (1.0-5.5); LYMPHOCYTES % (AUTO) 26.6 % (20.5-51.5); MEAN CORPUSCULAR HEMOGLOBIN 27 pg (27-31); MEAN CORPUSCULAR HGB CONC 33 % (32-36); MEAN CORPUSCULAR VOLUME 82 fL (79.0-98.0); MONOCYTES # (AUTO) 0.5 K/uL (0.0-1.0); MONOCYTES % (AUTO) 4.8 % (1.7-9.3); NEUTROPHILS # (AUTO) 6.7 K/uL (1.8-7.7); PLATELET COUNT (AUTO) 418 K/uL (130-430); RED BLOOD CELL COUNT(AUTO) 4.41 MIL/uL (4.2-6.2); WHITE BLOOD COUNT (AUTO) 10.1 K/uL (4.8-10.8)
[2019-08-06 03:30] LABS: ANION GAP 9 (5-15); CALCIUM 8.4 mg/dL (8.4-11.0); CHLORIDE 101 mmol/L (98-107); CREATININE 1.09 mg/dL (0.55-1.30); GLUCOSE 130 mg/dL (70-99); POTASSIUM 3.8 mmol/L (3.5-5.1); SODIUM SERUM 134 mmol/L (136-145); UREA NITROGEN, BLOOD 15 mg/dL (8-21)
[2019-08-06 03:36] LABS: ALANINE AMINOTRANSFERASE 30 U/L (12-78); ALBUMIN 3.8 g/dL (3.4-4.8); ASPARTATE AMINOTRANSFERASE 17 U/L (10-37); TOTAL BILIRUBIN 0.4 mg/dL (0.0-1.0)
[2019-08-06 03:37] LABS: GFR AFRICAN AMERICAN 68 mL/min (>90)
[2019-08-06] MEDS ORDERED: MAGNESIUM SULFATE 4 GM in D5W 250 ML IV ONE (03:45)
[2019-08-06] MEDS ORDERED: MAGNESIUM SULFATE 50 ML IV ONE ×2 (04:00)
--- NOTE | 2019-08-06 04:00 | NUR ---
Pt resting in ed bed comfortably wathing movie on device. No acute distress noted at this time. Vss.
[2019-08-06] MEDS ORDERED: MAGNESIUM SULFATE 100 ML IV ONE (04:07)
[2019-08-06 06:00] VITALS: BP_SYST 133
--- NOTE | 2019-08-06 06:00 | NUR ---
Patient given written and verbal discharge instructions and verbalizes understanding. ER MD discussed with patient the results and treatment provided. Patient in stable condition. ID arm band removed. IV catheter removed intact from maday-cath No Rx given. Patient educated on pain management and to follow up with PMD. Pain Scale 0/10. Opportunity for questions provided and answered.
== END 2019-08-06 06:00 | disposition home or self-care (01) ==
LOC: SED 00:35
DX: R25.2 Cramp and spasm (principal); E83.42 Hypomagnesemia; N15.8 Other specified renal tubulo-interstitial diseases; I10 Essential (primary) hypertension; N25.89 Other disorders resulting from impaired renal tubular function; F41.9 Anxiety disorder, unspecified; Z88.0 Allergy status to penicillin; Z79.899 Other long term (current) drug therapy; Z91.048 Other nonmedicinal substance allergy status
CPT/HCPCS: 36415; 80053; 82550; 83735; 85025; 96365; 96368; 96375; 96376; 99283; J1200; J2270; J2405; J3475

== ENCOUNTER 2019-08-08 04:03 | Emergency (ER) | payer OTHER ==
[~2019-08-08] VITALS: Ht 162.6 cm; Wt 108.9 kg
[2019-08-08 04:03] VITALS: BP_SYST 107
[2019-08-08] MEDS ORDERED: MORPHINE 4 MG/ML INJ. SYRINGE IVP ONE ×2 (04:45→06:15)
[2019-08-08] MEDS ORDERED: DIPHENHYDRAMINE INJ 50 MG/ML VIAL IVP ONE ×2 (04:45→06:15)
[2019-08-08 04:51] LABS: BASOPHILS # (AUTO) 0.1 K/uL (0.0-0.2); BASOPHILS % (AUTO) 1.3 % (0.0-2.0); EOSINOPHILS # (AUTO) 0.1 K/uL (0.0-0.4); HEMATOCRIT 38.4 % (36-48); HEMOGLOBIN 12.6 g/dL (12.0-16.0); LYMPHOCYTES # (AUTO) 2.5 K/uL (1.0-5.5); LYMPHOCYTES % (AUTO) 26.9 % (20.5-51.5); MEAN CORPUSCULAR HEMOGLOBIN 27 pg (27-31); MEAN CORPUSCULAR HGB CONC 33 % (32-36); MEAN CORPUSCULAR VOLUME 83 fL (79.0-98.0); MONOCYTES # (AUTO) 0.5 K/uL (0.0-1.0); MONOCYTES % (AUTO) 5.1 % (1.7-9.3); NEUTROPHILS # (AUTO) 6.1 K/uL (1.8-7.7); NEUTROPHILS % (AUTO) 65.7 % (40.0-70.0); PLATELET COUNT (AUTO) 458 K/uL (130-430); RED BLOOD CELL COUNT(AUTO) 4.65 MIL/uL (4.2-6.2); RED CELL DISTRIBUTION WIDTH 21.4 % (9.0-15.0); WHITE BLOOD COUNT (AUTO) 9.3 K/uL (4.8-10.8)
[2019-08-08 04:55] LABS: CALCIUM 9.4 mg/dL (8.4-11.0); CREATININE 1.1 mg/dL (0.55-1.30); POTASSIUM 3.8 mmol/L (3.5-5.1)
[2019-08-08] MEDS: MAGNESIUM SULFATE 4 GM in D5W 250 ML IV ONE ×2 (04:56→05:28)
[2019-08-08 05:00] LABS: ALBUMIN 3.9 g/dL (3.4-4.8); TOTAL BILIRUBIN 0.3 mg/dL (0.0-1.0)
[2019-08-08] MEDS ORDERED: MAGNESIUM SULFATE 50 ML IV ONE ×2 (05:00)
[2019-08-08] MEDS ORDERED: MAGNESIUM SULFATE 1 GM/2 ML VIAL ONE (05:02)
[2019-08-08] MEDS ORDERED: MAGNESIUM SULFATE 100 ML IV ONE (05:15)
[2019-08-08] MEDS ORDERED: KETOROLAC TROMETHAMINE 30 MG VIAL IVP ONE (06:00)
[2019-08-08 06:44] LABS: CLARITY/URINE CLEAR (CLEAR); COLOR,URINE YELLOW (YELLOW)
[2019-08-08 06:45] LABS: BILIRUBIN,URINE NEGATIVE (NEGATIVE); BLOOD, URINE NEGATIVE (NEGATIVE); GLUCOSE,URINE NEGATIVE (NEGATIVE); KETONES,URINE NEGATIVE (NEGATIVE); LEUKOCYTE ESTERASE ,URINE NEGATIVE (NEGATIVE); NITRITE, URINE NEGATIVE (NEGATIVE); PROTEIN URINE NEGATIVE (NEGATIVE); UROBILINOGEN,URINE 0.2 (0.2-1.0)
[2019-08-08 08:29] VITALS: BP_SYST 106
== END 2019-08-08 08:29 | disposition home or self-care (01) ==
LOC: SED 04:03
DX: E83.42 Hypomagnesemia (principal); N15.8 Other specified renal tubulo-interstitial diseases; R25.2 Cramp and spasm
CPT/HCPCS: 36415; 80053; 81003; 83735; 85025; 96365; 96366; 96375; 96376; 99283; J1200; J1885; J2270; J3475

== ENCOUNTER 2019-08-12 14:08 | Emergency (ER) | payer OTHER ==
[2019-08-16] MEDS ORDERED: MAGNESIUM SULFATE 1 GM/2 ML VIAL ONE (01:34)
[2019-08-16] MEDS ORDERED: DIPHENHYDRAMINE INJ 50 MG/ML VIAL ONE (01:35)
[2019-08-16] MEDS ORDERED: MORPHINE SULFATE 10 MG/ML VIAL ONE (01:36)
[2019-09-02 14:55] LABS: CHLORIDE 105 mmol/L (98-107); POTASSIUM 3.5 mmol/L (3.5-5.1); SODIUM SERUM 141 mmol/L (136-145)
[2019-09-02 14:56] LABS: ALANINE AMINOTRANSFERASE 27 U/L (12-78); ASPARTATE AMINOTRANSFERASE 13 U/L (10-37); CALCIUM 9.4 mg/dL (8.4-11.0); CREATININE 0.91 mg/dL (0.55-1.30); GFR AFRICAN AMERICAN 83 mL/min (>90); GLUCOSE 129 mg/dL (70-99); TOTAL BILIRUBIN 0.2 mg/dL (0.0-1.0); UREA NITROGEN, BLOOD 14 mg/dL (8-21)
[2019-09-02 14:57] LABS: ALBUMIN 3.9 g/dL (3.4-4.8)
[2019-09-02 14:58] LABS: BASOPHILS % (AUTO) 1.2 % (0.0-2.0); EOSINOPHILS % (AUTO) 2.2 % (0.0-4.0); HEMOGLOBIN 12.4 g/dL (12.0-16.0); LYMPHOCYTES % (AUTO) 32.1 % (20.5-51.5); MEAN CORPUSCULAR HEMOGLOBIN 27 pg (27-31); MEAN CORPUSCULAR HGB CONC 33 % (32-36); MEAN CORPUSCULAR VOLUME 83 fL (79.0-98.0); MONOCYTES % (AUTO) 6.3 % (1.7-9.3); NEUTROPHILS % (AUTO) 58.2 % (40.0-70.0); PLATELET COUNT (AUTO) 347 K/uL (130-430); RED BLOOD CELL COUNT(AUTO) 4.58 MIL/uL (4.2-6.2); RED CELL DISTRIBUTION WIDTH 21.7 % (9.0-15.0); WHITE BLOOD COUNT (AUTO) 11.9 K/uL (4.8-10.8)
[2019-09-02 14:59] LABS: BASOPHILS # (AUTO) 0.1 K/uL (0.0-0.2); EOSINOPHILS # (AUTO) 0.3 K/uL (0.0-0.4); LYMPHOCYTES # (AUTO) 3.8 K/uL (1.0-5.5); MONOCYTES # (AUTO) 0.7 K/uL (0.0-1.0); NEUTROPHILS # (AUTO) 6.9 K/uL (1.8-7.7)
== END 2019-08-12 17:05 | disposition home or self-care (01) ==
LOC: SED 14:08
DX: E83.42 Hypomagnesemia (principal)
CPT/HCPCS: 36415; 80053; 85025; 96374; 96375; 99283

== ENCOUNTER 2019-08-15 21:43 | Emergency (ER) | payer OTHER ==
[~2019-08-15] VITALS: Ht 162.6 cm; Wt 108.9 kg
[2019-08-15 22:00] VITALS: BP_SYST 103
[2019-08-15 22:34] LABS: BASOPHILS # (AUTO) 0.2 K/uL (0.0-0.2); BASOPHILS % (AUTO) 1.6 % (0.0-2.0); EOSINOPHILS # (AUTO) 0.2 K/uL (0.0-0.4); EOSINOPHILS % (AUTO) 2.3 % (0.0-4.0); HEMATOCRIT 40.4 % (36-48); LYMPHOCYTES # (AUTO) 3.4 K/uL (1.0-5.5); LYMPHOCYTES % (AUTO) 32.6 % (20.5-51.5); MEAN CORPUSCULAR HEMOGLOBIN 27 pg (27-31); MEAN CORPUSCULAR HGB CONC 32 % (32-36); MEAN CORPUSCULAR VOLUME 83 fL (79.0-98.0); MONOCYTES # (AUTO) 0.7 K/uL (0.0-1.0); MONOCYTES % (AUTO) 6.5 % (1.7-9.3); NEUTROPHILS # (AUTO) 5.9 K/uL (1.8-7.7); PLATELET COUNT (AUTO) 317 K/uL (130-430); RED BLOOD CELL COUNT(AUTO) 4.85 MIL/uL (4.2-6.2); RED CELL DISTRIBUTION WIDTH 21.8 % (9.0-15.0); WHITE BLOOD COUNT (AUTO) 10.4 K/uL (4.8-10.8)
[2019-08-15 22:56] LABS: CALCIUM 8.9 mg/dL (8.4-11.0); CREATININE 0.99 mg/dL (0.55-1.30); POTASSIUM 4.1 mmol/L (3.5-5.1)
[2019-08-15 23:00] LABS: ALBUMIN 3.6 g/dL (3.4-4.8); TOTAL BILIRUBIN 0.4 mg/dL (0.0-1.0)
--- NOTE | 2019-08-15 23:00 | NUR ---
Patient to ER bed 5 to gown for evaluation. Side rails up.
--- NOTE | 2019-08-15 23:01 | NUR ---
ER at bedside examining patient.
--- NOTE | 2019-08-15 23:30 | NUR ---
Pt brought into ED by family member. Pt states that she has re-occurence of pain in bilateral legs, anxiety and muscle cramps. Pt states that she has history of magnesium and potassium wasting disorder "gittlemans". Pt states that her magnesium might be low. Pt denies chest pain, nausea, vomiting, diarrhea, shortness of breath. Pt denies any other medical complaint at this time. Pt assisted to ED bed, resting comfortably watching movie on electronic device. Pt Vital signs stable.
--- NOTE | 2019-08-16 00:25 | NUR ---
Pt resting in ED bed comfortably. Tolerating IV medications well. No infiltration/inflammation at port-a cath site.
[2019-08-16] MEDS ORDERED: MAGNESIUM SULFATE 3 GM in D5W 100 ML IV ONE (01:00)
[2019-08-16] MEDS ORDERED: DIPHENHYDRAMINE INJ 50 MG/ML VIAL IVP ONE (01:00)
[2019-08-16] MEDS ORDERED: MORPHINE 4 MG/ML INJ. SYRINGE IVP ONE (01:00)
--- NOTE | 2019-08-16 01:31 | NUR ---
Pt resting in ED bed comfortably. Tolerating IV medications well. No infiltration/inflammation at port-a cath site.
--- NOTE | 2019-08-16 03:00 | NUR ---
Pt resting in ED bed comfortably. Tolerating IV medications well. No infiltration/inflammation at port-a cath site.
[2019-08-16] MEDS ORDERED: DIPHENHYDRAMINE HCL 25 MG CAPSULE PO ONE (03:30)
[2019-08-16 04:11] VITALS: BP_SYST 116
--- NOTE | 2019-08-16 04:11 | NUR ---
Patient given written and verbal discharge instructions and verbalizes understanding. ER MD discussed with patient the results and treatment provided. Patient in stable condition. ID arm band removed. Alas catheter removed From PortaCath intact and Sterile dressing applied, no active bleeding. Rx of Topical lotion Triamcinolone given. Patient educated on pain management and to follow up with PMD. Pain Scale 0/10. Pt had family member providing ride home Opportunity for questions provided and answered. Medication side effect fact sheet provided.
[2019-08-16 05:43] LABS: BILIRUBIN,URINE NEGATIVE (NEGATIVE); BLOOD, URINE NEGATIVE (NEGATIVE); CLARITY/URINE CLEAR (CLEAR); COLOR,URINE YELLOW (YELLOW); GLUCOSE,URINE NEGATIVE (NEGATIVE); KETONES,URINE NEGATIVE (NEGATIVE); LEUKOCYTE ESTERASE ,URINE NEGATIVE (NEGATIVE); NITRITE, URINE NEGATIVE (NEGATIVE); PH,URINE 6.5 (5.0-8.0); PROTEIN URINE NEGATIVE (NEGATIVE); UROBILINOGEN,URINE 0.2 (0.2-1.0)
== END 2019-08-16 04:11 | disposition home or self-care (01) ==
LOC: SED 21:43
DX: R25.2 Cramp and spasm (principal); L25.9 Unspecified contact dermatitis, unspecified cause; I10 Essential (primary) hypertension; Z88.0 Allergy status to penicillin; Z91.018 Allergy to other foods; Z79.899 Other long term (current) drug therapy
CPT/HCPCS: 36415; 80053; 81003; 83690; 83735; 85025; 93005; 96365; 96366; 96375; 99284; J7040; J7060; Q0163

== ENCOUNTER 2019-08-21 22:17 | Emergency (ER) | payer OTHER ==
[~2019-08-21] VITALS: Ht 162.6 cm; Wt 108.9 kg
[2019-08-21 22:58] VITALS: BP_SYST 115
--- NOTE | 2019-08-21 23:00 | NUR ---
Pt placed to ER waiting room in stable condition.
--- NOTE | 2019-08-21 23:04 | NUR ---
Pt to lab.
[2019-08-21 23:26] LABS: BASOPHILS # (AUTO) 0.1 K/uL (0.0-0.2); BASOPHILS % (AUTO) 0.8 % (0.0-2.0); EOSINOPHILS # (AUTO) 0.2 K/uL (0.0-0.4); EOSINOPHILS % (AUTO) 1.1 % (0.0-4.0); HEMATOCRIT 43.4 % (36-48); HEMOGLOBIN 13.8 g/dL (12.0-16.0); LYMPHOCYTES # (AUTO) 3.6 K/uL (1.0-5.5); LYMPHOCYTES % (AUTO) 24.1 % (20.5-51.5); MEAN CORPUSCULAR HEMOGLOBIN 27 pg (27-31); MEAN CORPUSCULAR HGB CONC 32 % (32-36); MEAN CORPUSCULAR VOLUME 85 fL (79.0-98.0); MONOCYTES # (AUTO) 0.9 K/uL (0.0-1.0); MONOCYTES % (AUTO) 6.3 % (1.7-9.3); NEUTROPHILS # (AUTO) 10.1 K/uL (1.8-7.7); NEUTROPHILS % (AUTO) 67.7 % (40.0-70.0); PLATELET COUNT (AUTO) 321 K/uL (130-430); RED CELL DISTRIBUTION WIDTH 21.6 % (9.0-15.0); WHITE BLOOD COUNT (AUTO) 14.9 K/uL (4.8-10.8)
[2019-08-21 23:35] LABS: CREATININE 1.01 mg/dL (0.55-1.30); POTASSIUM 3.6 mmol/L (3.5-5.1)
[2019-08-21 23:40] LABS: ALBUMIN 3.8 g/dL (3.4-4.8); TOTAL BILIRUBIN 0.3 mg/dL (0.0-1.0)
--- NOTE | 2019-08-21 23:53 | NUR ---
Pt placed to ER 04. Report given to ABHILASH Goldstein.
[2019-08-22] MEDS ORDERED: MAGNESIUM SULFATE 4 GM in D5W 250 ML IV ONE ×2
[2019-08-22] MEDS ORDERED: NACL 0.9% 1,000 ML IV ONE
[2019-08-22] MEDS ORDERED: ONDANSETRON HCL 4 MG/2 ML VIAL IVP ONE
--- NOTE | 2019-08-22 00:05 | NUR ---
PLACED IN BED 4. HERE FOR LEFT SHOULDER PAIN AND BILATERAL LEG PAIN/CRAMPING.
[2019-08-22] MEDS ORDERED: MAGNESIUM SULFATE 1 GM/2 ML VIAL ONE (00:29)
--- NOTE | 2019-08-22 00:44 | NUR ---
RIGHT CHEST MEDIPORT ACCESSED USING ASEPTIC TECHNIC. NS 1 LITER BOLUS. MAGNESIUM SULFATE 4 GM IN 250 ML D5 WATER TO RUN OVER 4 HOURS, ZOFRAN 4 MG IVP,BENADRYL 25 MG IVP AND MORPHINE 4 MG IVP GIVEN ORDERED.
--- NOTE | 2019-08-22 01:10 | NUR ---
ER-MD CAME BY BEDSIDE TO EVALUATE PT.
--- NOTE | 2019-08-22 01:42 | NUR ---
PER PT. REQUEST AND ER-MD'S APPROVAL, MAGNESIUM SULFATE INFUSED TO RUN OVER 2 HOURS (129 ML/HR). PT. VERBALIZED SIGNIFICANT IMPROVEMENT OF PAIN (4/10). WILL CLOSELY MONITOR.
[2019-08-22] MEDS ORDERED: MORPHINE 4 MG/ML INJ. SYRINGE IVP ONE ×2 (01:45)
[2019-08-22] MEDS ORDERED: DIPHENHYDRAMINE INJ 50 MG/ML VIAL IVP ONE ×2 (01:45)
--- NOTE | 2019-08-22 03:27 | NUR ---
DISCHARGED STABLE AND IMPROVED. PRESCRIPTION,VEBAL AND WRITTEN AFTERCARE INSTRUCTIONS GIVEN. VERBALIZED UNDERSTANDING. LEFT AMBULATORY WITH STABLE GAIT.
[2019-08-22 03:37] VITALS: BP_SYST 111
== END 2019-08-22 03:37 | disposition home or self-care (01) ==
LOC: SED 22:17
DX: M25.512 Pain in left shoulder (principal); E26.81 Bartter's syndrome; E83.42 Hypomagnesemia; I10 Essential (primary) hypertension; N28.9 Disorder of kidney and ureter, unspecified; F41.9 Anxiety disorder, unspecified; Z88.0 Allergy status to penicillin; Z91.018 Allergy to other foods; Z90.710 Acquired absence of both cervix and uterus
CPT/HCPCS: 36415; 80053; 83735; 85025; 96365; 96366; 96375; 96376; 99283; J1200; J2270; J2405; J3475; J7030

== ENCOUNTER 2019-08-23 22:09 | Emergency (ER) | payer OTHER ==
[~2019-08-23] VITALS: Ht 162.6 cm; Wt 108.9 kg
[2019-08-23 22:38] VITALS: BP_SYST 102
--- NOTE | 2019-08-24 00:28 | NUR ---
Pt ambulatory to bed 6 for evaluation
--- NOTE | 2019-08-24 00:37 | NUR ---
Pt presents to ER with c/o portacatheter pain. Pt A&Ox4. Pt states portacatheter located in R chest is "throbbing and burning." Upon inspection, site appears with red discoloration, swelling, and it hot to touch. Pt states pain is 10/10. Pt states she has an appointment with Dr. Mota on Thursday but "the pain is so bad, I needed to be seen."
--- NOTE | 2019-08-24 01:46 | NUR ---
ER Dr. Stephens at bedside examining patient.
--- NOTE | 2019-08-24 02:20 | NUR ---
Milton catheter site cleansed with Normal Saline. Non-adherent dressing applied. Pt tolerated well.
[2019-08-24] MEDS ORDERED: OXYCODONE/ACETAMINOPHEN 5-325 TABLET PO ONE (03:00)
[2019-08-24] MEDS ORDERED: DIPHENHYDRAMINE HCL 50 MG CAPSULE PO ONE (03:00)
[2019-08-24 03:35] VITALS: BP_SYST 115
== END 2019-08-24 03:35 | disposition home or self-care (01) ==
LOC: SED 22:09
DX: L25.9 Unspecified contact dermatitis, unspecified cause (principal); I10 Essential (primary) hypertension; Z88.0 Allergy status to penicillin; Z91.018 Allergy to other foods; Z79.899 Other long term (current) drug therapy
CPT/HCPCS: 99283; Q0163

== ENCOUNTER 2019-08-26 02:06 | Inpatient (IN) | payer OTHER ==
[~2019-08-26] VITALS: Ht 162.6 cm; Wt 107.5 kg
[2019-08-26 02:12] VITALS: BP_SYST 130
[2019-08-26] MEDS ORDERED: NACL 0.9% 1,000 ML IV ONE (02:29)
[2019-08-26] MEDS ORDERED: MAGNESIUM SULFATE 50 ML IV ONE (02:30)
[2019-08-26] MEDS ORDERED: ONDANSETRON HCL 4 MG/2 ML VIAL IVP ONE ×2 (02:30→02:45)
[2019-08-26] MEDS ORDERED: DIPHENHYDRAMINE INJ 50 MG/ML VIAL IVP ONE ×2 (02:45→06:15)
[2019-08-26] MEDS ORDERED: MORPHINE 4 MG/ML INJ. SYRINGE IVP ONE ×3 (02:45→09:45)
[2019-08-26 04:27] LABS: BASOPHILS # (AUTO) 0.1 K/uL (0.0-0.2); BASOPHILS % (AUTO) 0.9 % (0.0-2.0); EOSINOPHILS # (AUTO) 0.1 K/uL (0.0-0.4); EOSINOPHILS % (AUTO) 0.8 % (0.0-4.0); HEMATOCRIT 39.5 % (36-48); HEMOGLOBIN 12.9 g/dL (12.0-16.0); LYMPHOCYTES # (AUTO) 3.1 K/uL (1.0-5.5); LYMPHOCYTES % (AUTO) 20.8 % (20.5-51.5); MEAN CORPUSCULAR HEMOGLOBIN 27 pg (27-31); MEAN CORPUSCULAR HGB CONC 33 % (32-36); MEAN CORPUSCULAR VOLUME 83 fL (79.0-98.0); MONOCYTES # (AUTO) 0.8 K/uL (0.0-1.0); MONOCYTES % (AUTO) 5.1 % (1.7-9.3); NEUTROPHILS # (AUTO) 10.9 K/uL (1.8-7.7); NEUTROPHILS % (AUTO) 72.4 % (40.0-70.0); PLATELET COUNT (AUTO) 347 K/uL (130-430); RED BLOOD CELL COUNT(AUTO) 4.74 MIL/uL (4.2-6.2); RED CELL DISTRIBUTION WIDTH 21.5 % (9.0-15.0); WHITE BLOOD COUNT (AUTO) 15.1 K/uL (4.8-10.8)
[2019-08-26 04:37] LABS: CALCIUM 8.3 mg/dL (8.4-11.0); CREATININE 0.86 mg/dL (0.55-1.30); POTASSIUM 3.9 mmol/L (3.5-5.1)
[2019-08-26 04:44] LABS: ALBUMIN 3.7 g/dL (3.4-4.8); TOTAL BILIRUBIN 0.3 mg/dL (0.0-1.0)
[2019-08-26 07:48] VITALS: BP_SYST 125
[2019-08-26] MEDS ORDERED: MORPHINE SULFATE 30 MG Immediate Release TABLET PO SCH (09:45)
[2019-08-26] MEDS ORDERED: MAGNESIUM SULFATE 4 GM in D5W 250 ML IV ONE (09:45)
[2019-08-26] MEDS ORDERED: SPIRONOLACTONE 50 MG TABLET (ALDACTONE) PO ONE (09:45)
[2019-08-26] MEDS ORDERED: aMILoride HCL 5 MG TABLET PO ONE (09:45)
[2019-08-26] MEDS ORDERED: LR 500 ML IV ONE (09:45)
[2019-08-26] MEDS ORDERED: DULoxetine HCL 30 MG CAPSULE.DR (CYMBALTA) PO ONE (09:45)
[2019-08-26] MEDS ORDERED: CYCLOBENZAPRINE HCL 10 MG TABLET (FLEXERIL) PO ONE (09:45)
[2019-08-26 10:26] LABS: BASOPHILS # (AUTO) 0.1 K/uL (0.0-0.2); BASOPHILS % (AUTO) 1.1 % (0.0-2.0); EOSINOPHILS # (AUTO) 0.2 K/uL (0.0-0.4); EOSINOPHILS % (AUTO) 1.3 % (0.0-4.0); HEMATOCRIT 35.5 % (36-48); HEMOGLOBIN 11.4 g/dL (12.0-16.0); LYMPHOCYTES # (AUTO) 3.3 K/uL (1.0-5.5); LYMPHOCYTES % (AUTO) 25.3 % (20.5-51.5); MEAN CORPUSCULAR HEMOGLOBIN 27 pg (27-31); MEAN CORPUSCULAR HGB CONC 32 % (32-36); MEAN CORPUSCULAR VOLUME 85 fL (79.0-98.0); MONOCYTES # (AUTO) 0.6 K/uL (0.0-1.0); MONOCYTES % (AUTO) 4.7 % (1.7-9.3); NEUTROPHILS # (AUTO) 8.8 K/uL (1.8-7.7); NEUTROPHILS % (AUTO) 67.6 % (40.0-70.0); PLATELET COUNT (AUTO) 298 K/uL (130-430); RED CELL DISTRIBUTION WIDTH 21.8 % (9.0-15.0)
[2019-08-26] MEDS: POTASSIUM CHLORIDE 20 MEQ TAB.PRT.SR PO SCH ×4 (10:26→22:49)
[2019-08-26] MEDS: DIPHENHYDRAMINE INJ 50 MG/ML VIAL IVP PRN ×4 (10:27→22:51)
[2019-08-26] MEDS: ONDANSETRON HCL 4 MG/2 ML VIAL IVP PRN ×4 (10:27→22:53)
[2019-08-26] MEDS: LORazepam 1 MG TABLET PO SCH (10:47)
[2019-08-26 11:08] LABS: ERYTHROCYTE SEDIMENTATION RATE 16 MM/HR (0-20)
[2019-08-26 11:19] VITALS: BP_SYST 107
[2019-08-26] MEDS: MAGNESIUM CHLORIDE 64 MG TABLET.DR PO SCH ×3 (11:54→20:32)
[2019-08-26] MEDS ORDERED: CLINDAMYCIN 300 MG in D5W 50 ML IV ONE (13:15)
[2019-08-26] MEDS ORDERED: LORazepam 2 MG/ML VIAL IVP PRN (14:15)
[2019-08-26] MEDS: MORPHINE 4 MG/ML INJ. SYRINGE IVP PRN ×3 (14:38→22:52)
[2019-08-26 14:58] VITALS: BP_SYST 100
[2019-08-26] MEDS ORDERED: *CUBICIN 6 MG/KG Q24H/PHARMACY XX PRN (17:15)
[2019-08-26] MEDS: DAPTOmycin 500 MG in NS 50 ML IV SCH (17:57)
[2019-08-26] MEDS ORDERED: CLINDAMYCIN 300 MG in D5W 50 ML IV SCH (18:00)
[2019-08-26] MEDS ORDERED: DAPTOmycin 450 MG in NS 50 ML IV SCH (18:00)
[2019-08-26 20:00] VITALS: BP_SYST 99
[2019-08-26] MEDS ORDERED: HYDROCORTISONE 1% 28.35 GM TOPICAL OINT. TP PRN (20:00)
[2019-08-26] MEDS: aMILoride HCL 5 MG TABLET PO SCH (20:31)
[2019-08-26] MEDS: CHOLECALCIFEROL (VITAMIN D-3) 400 UNIT TABLET PO SCH (20:32)
[2019-08-26] MEDS: CYCLOBENZAPRINE HCL 10 MG TABLET (FLEXERIL) PO SCH (20:32)
[2019-08-26 21:34] LABS: BILIRUBIN,URINE NEGATIVE (NEGATIVE); BLOOD, URINE NEGATIVE (NEGATIVE); CLARITY/URINE CLEAR (CLEAR); COLOR,URINE YELLOW (YELLOW); GLUCOSE,URINE NEGATIVE (NEGATIVE); KETONES,URINE NEGATIVE (NEGATIVE); LEUKOCYTE ESTERASE ,URINE NEGATIVE (NEGATIVE); NITRITE, URINE NEGATIVE (NEGATIVE); PH,URINE 5.5 (5.0-8.0); PROTEIN URINE NEGATIVE (NEGATIVE); UROBILINOGEN,URINE 0.2 (0.2-1.0)
[2019-08-27] VITALS: BP_SYST 108
[2019-08-27] MEDS: DIPHENHYDRAMINE INJ 50 MG/ML VIAL IVP PRN ×6 (02:58→23:51)
[2019-08-27] MEDS: ONDANSETRON HCL 4 MG/2 ML VIAL IVP PRN ×6 (02:58→23:52)
[2019-08-27] MEDS: POTASSIUM CHLORIDE 20 MEQ TAB.PRT.SR PO SCH ×6 (02:58→20:48)
[2019-08-27] MEDS: MORPHINE 4 MG/ML INJ. SYRINGE IVP PRN ×6 (02:59→23:52)
[2019-08-27 06:32] LABS: BASOPHILS # (AUTO) 0.1 K/uL (0.0-0.2); BASOPHILS % (AUTO) 0.8 % (0.0-2.0); EOSINOPHILS # (AUTO) 0.4 K/uL (0.0-0.4); EOSINOPHILS % (AUTO) 3.4 % (0.0-4.0); HEMATOCRIT 36.4 % (36-48); HEMOGLOBIN 11.7 g/dL (12.0-16.0); LYMPHOCYTES # (AUTO) 3.3 K/uL (1.0-5.5); LYMPHOCYTES % (AUTO) 29.9 % (20.5-51.5); MEAN CORPUSCULAR HEMOGLOBIN 27 pg (27-31); MEAN CORPUSCULAR HGB CONC 32 % (32-36); MEAN CORPUSCULAR VOLUME 85 fL (79.0-98.0); MONOCYTES # (AUTO) 0.6 K/uL (0.0-1.0); MONOCYTES % (AUTO) 5.4 % (1.7-9.3); NEUTROPHILS # (AUTO) 6.7 K/uL (1.8-7.7); NEUTROPHILS % (AUTO) 60.5 % (40.0-70.0); PLATELET COUNT (AUTO) 312 K/uL (130-430); RED BLOOD CELL COUNT(AUTO) 4.29 MIL/uL (4.2-6.2); RED CELL DISTRIBUTION WIDTH 21.4 % (9.0-15.0)
[2019-08-27 06:44] LABS: ALBUMIN 3.4 g/dL (3.4-4.8); CALCIUM 8.8 mg/dL (8.4-11.0); CREATININE 0.98 mg/dL (0.55-1.30); PHOSPHORUS 4.4 mg/dL (2.7-4.5); POTASSIUM 4.5 mmol/L (3.5-5.1); TOTAL BILIRUBIN 0.5 mg/dL (0.0-1.0)
[2019-08-27 08:00] VITALS: BP_SYST 110
[2019-08-27 08:15] VITALS: BP_SYST 102
[2019-08-27] MEDS: COLCHICINE 0.6 MG TABLET PO PRN ×2 (08:58→22:52)
[2019-08-27] MEDS: PANTOPRAZOLE SODIUM 40 MG TAB PO SCH (08:59)
[2019-08-27] MEDS: SPIRONOLACTONE 50 MG TABLET (ALDACTONE) PO SCH (08:59)
[2019-08-27] MEDS: CYCLOBENZAPRINE HCL 10 MG TABLET (FLEXERIL) PO SCH ×2 (08:59→20:19)
[2019-08-27] MEDS: DULoxetine HCL 30 MG CAPSULE.DR (CYMBALTA) PO SCH (09:02)
[2019-08-27] MEDS: aMILoride HCL 5 MG TABLET PO SCH ×2 (09:04→20:19)
[2019-08-27] MEDS: MAGNESIUM CHLORIDE 64 MG TABLET.DR PO SCH ×4 (09:05→20:19)
[2019-08-27] MEDS: LORazepam 1 MG TABLET PO SCH ×2 (09:07→22:52)
[2019-08-27 12:00] VITALS: BP_SYST 112
[2019-08-27] MEDS ORDERED: MAGNESIUM SULFATE 4 GM in D5W 250 ML IV ONE ×2 (13:00→14:30)
[2019-08-27] MEDS: CHOLECALCIFEROL (VITAMIN D-3) 400 UNIT TABLET PO SCH ×2 (14:14→20:20)
[2019-08-27 16:00] VITALS: BP_SYST 94
[2019-08-27] MEDS: DAPTOmycin 500 MG in NS 50 ML IV SCH (18:09)
[2019-08-27 20:00] VITALS: BP_SYST 110
[2019-08-28 00:58] VITALS: BP_SYST 112
[2019-08-28] MEDS: POTASSIUM CHLORIDE 20 MEQ TAB.PRT.SR PO SCH ×6 (02:45→20:53)
[2019-08-28] MEDS: MORPHINE 4 MG/ML INJ. SYRINGE IVP PRN ×5 (04:13→20:54)
[2019-08-28] MEDS: ONDANSETRON HCL 4 MG/2 ML VIAL IVP PRN ×5 (04:13→20:53)
[2019-08-28] MEDS: DIPHENHYDRAMINE INJ 50 MG/ML VIAL IVP PRN ×4 (04:13→16:48)
[2019-08-28] MEDS: DULoxetine HCL 30 MG CAPSULE.DR (CYMBALTA) PO SCH (08:40)
[2019-08-28] MEDS: SPIRONOLACTONE 50 MG TABLET (ALDACTONE) PO SCH (08:41)
[2019-08-28] MEDS: aMILoride HCL 5 MG TABLET PO SCH ×2 (08:41→20:52)
[2019-08-28] MEDS: CYCLOBENZAPRINE HCL 10 MG TABLET (FLEXERIL) PO SCH ×2 (08:41→20:57)
[2019-08-28] MEDS: MAGNESIUM CHLORIDE 64 MG TABLET.DR PO SCH ×4 (08:41→20:52)
[2019-08-28] MEDS: PANTOPRAZOLE SODIUM 40 MG TAB PO SCH (08:41)
[2019-08-28] MEDS: CHOLECALCIFEROL (VITAMIN D-3) 400 UNIT TABLET PO SCH ×2 (10:10→20:53)
[2019-08-28 12:15] VITALS: BP_SYST 92
[2019-08-28 15:17] LABS: BASOPHILS # (AUTO) 0.1 K/uL (0.0-0.2); BASOPHILS % (AUTO) 0.8 % (0.0-2.0); EOSINOPHILS # (AUTO) 0.3 K/uL (0.0-0.4); EOSINOPHILS % (AUTO) 3.5 % (0.0-4.0); LYMPHOCYTES # (AUTO) 3.2 K/uL (1.0-5.5); LYMPHOCYTES % (AUTO) 33.1 % (20.5-51.5); MEAN CORPUSCULAR HEMOGLOBIN 27 pg (27-31); MEAN CORPUSCULAR HGB CONC 32 % (32-36); MEAN CORPUSCULAR VOLUME 85 fL (79.0-98.0); MONOCYTES # (AUTO) 0.7 K/uL (0.0-1.0); MONOCYTES % (AUTO) 7.3 % (1.7-9.3); NEUTROPHILS # (AUTO) 5.4 K/uL (1.8-7.7); NEUTROPHILS % (AUTO) 55.3 % (40.0-70.0); PLATELET COUNT (AUTO) 316 K/uL (130-430); RED BLOOD CELL COUNT(AUTO) 4.38 MIL/uL (4.2-6.2); RED CELL DISTRIBUTION WIDTH 21.1 % (9.0-15.0); WHITE BLOOD COUNT (AUTO) 9.8 K/uL (4.8-10.8)
[2019-08-28 15:51] LABS: CALCIUM 8.8 mg/dL (8.4-11.0); CREATININE 0.95 mg/dL (0.55-1.30); POTASSIUM 4.2 mmol/L (3.5-5.1)
[2019-08-28 16:17] VITALS: BP_SYST 98
[2019-08-28] MEDS: COLCHICINE 0.6 MG TABLET PO PRN (16:45)
[2019-08-28] MEDS: DAPTOmycin 500 MG in NS 50 ML IV SCH (18:49)
[2019-08-28] MEDS ORDERED: IPRATROPIUM/ALBUTEROL SULFATE 3 ML AMPUL.NEB (DUONEB) INH PRN (19:00)
[2019-08-28 19:06] VITALS: BP_SYST 98
[2019-08-28 20:00] VITALS: BP_SYST 101
[2019-08-28 20:11] VITALS: BP_SYST 101
[2019-08-28] MEDS ORDERED: DIPHENHYDRAMINE INJ 50 MG/ML VIAL IVP SCH (20:50)
== END 2019-08-28 22:30 | disposition home or self-care (01) | DRG 314 ==
LOC: SED 02:06 → STU 07:01 → SMU 08-28 14:03
PROVIDERS: ADMIT Internal Medicine; ATTEND Internal Medicine
DX: T80.211A Bloodstream infection due to central venous catheter, initial encounter (principal); A41.9 Sepsis, unspecified organism; L03.313 Cellulitis of chest wall; G40.89 Other seizures; T82.514A Breakdown (mechanical) of infusion catheter, initial encounter; Z68.41 Body mass index [BMI] 40.0-44.9, adult; T80.212A Local infection due to central venous catheter, initial encounter; Y84.8 Other medical procedures as the cause of abnormal reaction of the patient, or of later complication, without mention of misadventure at the time of the procedure; E03.9 Hypothyroidism, unspecified; F32.9 Major depressive disorder, single episode, unspecified; G89.4 Chronic pain syndrome; E83.42 Hypomagnesemia; N28.89 Other specified disorders of kidney and ureter; I10 Essential (primary) hypertension; F41.9 Anxiety disorder, unspecified; R25.2 Cramp and spasm; E66.9 Obesity, unspecified; M11.262 Other chondrocalcinosis, left knee; M11.261 Other chondrocalcinosis, right knee; M79.7 Fibromyalgia; D50.9 Iron deficiency anemia, unspecified; L23.9 Allergic contact dermatitis, unspecified cause; F17.200 Nicotine dependence, unspecified, uncomplicated; J45.909 Unspecified asthma, uncomplicated; Z90.710 Acquired absence of both cervix and uterus; Z88.0 Allergy status to penicillin; Y92.89 Other specified places as the place of occurrence of the external cause; Z91.018 Allergy to other foods; Z91.09 Other allergy status, other than to drugs and biological substances; Z79.899 Other long term (current) drug therapy
CPT/HCPCS: 36415; 71046-TC; 80048; 80053; 81003; 83605; 83735-TC; 84100-TC; 85025; 85651-TC; 87040-TC; 96365; 96366; 96375; 96376; 99285; G0378; J0878; J1200; J2270; J2405; J3475; J3490; J7030; J7050; J7060; J7120

== ENCOUNTER 2019-09-05 10:08 | Emergency (ER) | payer OTHER ==
[~2019-09-05] VITALS: Ht 162.6 cm; Wt 108.9 kg
[2019-09-05 10:16] VITALS: BP_SYST 159
--- NOTE | 2019-09-05 10:21 | NUR ---
Patient triaged and placed in waiting room. VSS and patient appears in no acute distress at this time. Accompanied by family , awaiting available bed, and MD notified of need for MSE.
--- NOTE | 2019-09-05 10:52 | NUR ---
Patient to ER bed 03 to gown for evaluation. Side rails up.
--- NOTE | 2019-09-05 11:20 | NUR ---
Patient AAOx4 c/o leg pain. Patient states that the pain began this morning. Patient has allergies to PCN, kiwi, and paper tape. Patient's PMD is Dr. Mota. Respirations even and unlabored, no signs or symptoms of acute distress noted.
--- NOTE | 2019-09-05 11:25 | NUR ---
ER Dr. Cason at bedside examining patient.
[2019-09-05] MEDS ORDERED: DIPHENHYDRAMINE INJ 50 MG/ML VIAL IVP ONE ×2 (11:30→13:45)
[2019-09-05] MEDS ORDERED: MORPHINE 4 MG/ML INJ. SYRINGE IVP ONE ×2 (11:30→13:45)
[2019-09-05 12:08] LABS: BASOPHILS # (AUTO) 0.2 K/uL (0.0-0.2); BASOPHILS % (AUTO) 1.1 % (0.0-2.0); EOSINOPHILS # (AUTO) 0.2 K/uL (0.0-0.4); EOSINOPHILS % (AUTO) 1.3 % (0.0-4.0); HEMATOCRIT 42.7 % (36-48); HEMOGLOBIN 14.1 g/dL (12.0-16.0); LYMPHOCYTES # (AUTO) 3.5 K/uL (1.0-5.5); LYMPHOCYTES % (AUTO) 24.1 % (20.5-51.5); MEAN CORPUSCULAR HEMOGLOBIN 28 pg (27-31); MEAN CORPUSCULAR HGB CONC 33 % (32-36); MEAN CORPUSCULAR VOLUME 83 fL (79.0-98.0); MONOCYTES # (AUTO) 0.8 K/uL (0.0-1.0); MONOCYTES % (AUTO) 5.3 % (1.7-9.3); NEUTROPHILS # (AUTO) 9.9 K/uL (1.8-7.7); NEUTROPHILS % (AUTO) 68.2 % (40.0-70.0); PLATELET COUNT (AUTO) 440 K/uL (130-430); RED BLOOD CELL COUNT(AUTO) 5.13 MIL/uL (4.2-6.2); RED CELL DISTRIBUTION WIDTH 20.5 % (9.0-15.0); WHITE BLOOD COUNT (AUTO) 14.5 K/uL (4.8-10.8)
[2019-09-05 12:25] LABS: CALCIUM 9.2 mg/dL (8.4-11.0); CREATININE 0.99 mg/dL (0.55-1.30); POTASSIUM 3.9 mmol/L (3.5-5.1)
[2019-09-05 12:31] LABS: TOTAL BILIRUBIN 0.5 mg/dL (0.0-1.0)
[2019-09-05] MEDS ORDERED: MAGNESIUM SULFATE 50 ML IV ONE (13:15)
--- NOTE | 2019-09-05 13:20 | NUR ---
Patient sitting up in bed, resting. No signs or symptoms of acute distress noted.
[2019-09-05 14:49] VITALS: BP_SYST 150
== END 2019-09-05 14:47 | disposition home or self-care (01) ==
LOC: SED 10:08
DX: M62.838 Other muscle spasm (principal); E83.42 Hypomagnesemia; I10 Essential (primary) hypertension; N28.9 Disorder of kidney and ureter, unspecified; E03.9 Hypothyroidism, unspecified; F41.9 Anxiety disorder, unspecified; N15.8 Other specified renal tubulo-interstitial diseases; Z90.710 Acquired absence of both cervix and uterus; Z91.018 Allergy to other foods; Z88.0 Allergy status to penicillin; Z79.899 Other long term (current) drug therapy
CPT/HCPCS: 36415; 80053; 83735; 85025; 93005; 96374; 96375; 96376; 99283; J1200; J2270; J3475; J7030

== ENCOUNTER 2019-09-14 18:00 | Emergency (ER) | payer OTHER ==
[~2019-09-14] VITALS: Ht 162.6 cm; Wt 111.1 kg
[2019-09-14] MEDS ORDERED: MAGNESIUM SULFATE 3 GM in D5W 100 ML IV ONE (18:15)
[2019-09-14 18:23] VITALS: BP_SYST 120
[2019-09-14 18:23] LABS: BASOPHILS # (AUTO) 0.1 K/uL (0.0-0.2); BASOPHILS % (AUTO) 1.1 % (0.0-2.0); EOSINOPHILS # (AUTO) 0.1 K/uL (0.0-0.4); EOSINOPHILS % (AUTO) 1.2 % (0.0-4.0); HEMATOCRIT 40.8 % (36-48); HEMOGLOBIN 13.4 g/dL (12.0-16.0); LYMPHOCYTES # (AUTO) 2.7 K/uL (1.0-5.5); LYMPHOCYTES % (AUTO) 22.4 % (20.5-51.5); MEAN CORPUSCULAR HEMOGLOBIN 27 pg (27-31); MEAN CORPUSCULAR HGB CONC 33 % (32-36); MEAN CORPUSCULAR VOLUME 84 fL (79.0-98.0); MONOCYTES # (AUTO) 0.8 K/uL (0.0-1.0); MONOCYTES % (AUTO) 6.4 % (1.7-9.3); NEUTROPHILS # (AUTO) 8.2 K/uL (1.8-7.7); NEUTROPHILS % (AUTO) 68.9 % (40.0-70.0); PLATELET COUNT (AUTO) 373 K/uL (130-430); RED BLOOD CELL COUNT(AUTO) 4.88 MIL/uL (4.2-6.2); RED CELL DISTRIBUTION WIDTH 20.6 % (9.0-15.0); WHITE BLOOD COUNT (AUTO) 11.9 K/uL (4.8-10.8)
[2019-09-14 18:42] LABS: CREATININE 0.97 mg/dL (0.55-1.30); POTASSIUM 3.7 mmol/L (3.5-5.1)
[2019-09-14 18:46] LABS: ALBUMIN 3.6 g/dL (3.4-4.8); TOTAL BILIRUBIN 0.4 mg/dL (0.0-1.0)
[2019-09-14] MEDS ORDERED: MAGNESIUM SULFATE 1 GM/2 ML VIAL ONE (19:36)
[2019-09-14] MEDS ORDERED: ONDANSETRON HCL 4 MG/2 ML VIAL IVP ONE (20:00)
[2019-09-14] MEDS ORDERED: DIPHENHYDRAMINE INJ 50 MG/ML VIAL IVP ONE ×2 (20:00→22:00)
[2019-09-14] MEDS ORDERED: MORPHINE 4 MG/ML INJ. SYRINGE IVP ONE ×2 (20:00→22:00)
[2019-09-14] MEDS ORDERED: NACL 0.9% 1,000 ML IV ONE (21:30)
[2019-09-14 23:02] VITALS: BP_SYST 102
== END 2019-09-14 22:50 | disposition home or self-care (01) ==
LOC: SED 18:00
DX: M79.18 Myalgia, other site (principal); I10 Essential (primary) hypertension; E03.9 Hypothyroidism, unspecified; Z91.018 Allergy to other foods; Z88.0 Allergy status to penicillin; Z79.899 Other long term (current) drug therapy
CPT/HCPCS: 36415; 80053; 83735; 85025; 96365; 96366; 96375; 96376; 99283; J1200; J2270; J2405; J3475; J7030

== ENCOUNTER 2019-09-20 20:17 | Emergency (ER) | payer OTHER ==
[~2019-09-20] VITALS: Ht 162.6 cm; Wt 108.9 kg
[2019-09-20 20:24] VITALS: BP_SYST 133
[2019-09-20] MEDS ORDERED: LORazepam 2 MG/ML VIAL IVP ONE (20:30)
[2019-09-20] MEDS ORDERED: DIPHENHYDRAMINE INJ 50 MG/ML VIAL IVP ONE ×2 (20:30→23:45)
[2019-09-20] MEDS ORDERED: KETOROLAC TROMETHAMINE 30 MG VIAL IVP ONE (20:30)
[2019-09-20] MEDS ORDERED: MAGNESIUM SULFATE 3 GM in D5W 100 ML IV ONE (20:30)
[2019-09-20 20:58] LABS: BASOPHILS # (AUTO) 0.1 K/uL (0.0-0.2); BASOPHILS % (AUTO) 1.1 % (0.0-2.0); EOSINOPHILS # (AUTO) 0.2 K/uL (0.0-0.4); EOSINOPHILS % (AUTO) 1.3 % (0.0-4.0); HEMATOCRIT 40.8 % (36-48); HEMOGLOBIN 13.3 g/dL (12.0-16.0); LYMPHOCYTES # (AUTO) 3.4 K/uL (1.0-5.5); LYMPHOCYTES % (AUTO) 27.7 % (20.5-51.5); MEAN CORPUSCULAR HEMOGLOBIN 27 pg (27-31); MEAN CORPUSCULAR HGB CONC 33 % (32-36); MEAN CORPUSCULAR VOLUME 84 fL (79.0-98.0); MONOCYTES # (AUTO) 0.8 K/uL (0.0-1.0); MONOCYTES % (AUTO) 6.2 % (1.7-9.3); NEUTROPHILS # (AUTO) 7.8 K/uL (1.8-7.7); NEUTROPHILS % (AUTO) 63.7 % (40.0-70.0); PLATELET COUNT (AUTO) 328 K/uL (130-430); RED BLOOD CELL COUNT(AUTO) 4.86 MIL/uL (4.2-6.2); RED CELL DISTRIBUTION WIDTH 19.3 % (9.0-15.0); WHITE BLOOD COUNT (AUTO) 12.2 K/uL (4.8-10.8)
--- NOTE | 2019-09-20 21:10 | NUR ---
ER at bedside examining patient.
--- NOTE | 2019-09-20 21:10 | NUR ---
Pt brought in by [facility] ambulance. Pt states she has bilateral leg pain and cramps, and mild tonic clonic seizure for unknown period of time. pt states that she has gittlemans syndrome and has chronically low magnesium. Pt states that she has no other medical complaint at this time. Pt denies chest pain, nausea, vomiting, diarrhea, shortness of breath or any other medical complaint at this time. VSS
--- NOTE | 2019-09-20 21:10 | NUR ---
Patient to ER bed 5 to gown for evaluation. Side rails up.
--- NOTE | 2019-09-20 21:15 | NUR ---
Pt Alas site accessed on R upper chest. sterile technique maintained.
[2019-09-20] MEDS ORDERED: MAGNESIUM SULFATE 1 GM/2 ML VIAL ONE (21:16)
[2019-09-20 21:26] LABS: CREATININE 0.94 mg/dL (0.55-1.30)
[2019-09-20 21:32] LABS: ALBUMIN 3.9 g/dL (3.4-4.8); TOTAL BILIRUBIN 0.3 mg/dL (0.0-1.0)
[2019-09-20 21:46] LABS: POTASSIUM 2.8 mmol/L (3.5-5.1)
--- NOTE | 2019-09-20 22:00 | NUR ---
Pt resting in ED bed comfortably recieving infusion. No distress.
[2019-09-20] MEDS ORDERED: MORPHINE 2 MG/ML INJ. SYRINGE IVP ONE (22:15)
[2019-09-20] MEDS ORDERED: POTASSIUM CHLORIDE 20 MEQ TAB.PRT.SR PO ONE (22:15)
--- NOTE | 2019-09-20 23:00 | NUR ---
Pt resting in ED bed comfortably recieving infusion. No distress.
--- NOTE | 2019-09-21 | NUR ---
Pt resting in ED bed comfortably recieving infusion. No distress.
[2019-09-21 00:25] VITALS: BP_SYST 130
--- NOTE | 2019-09-21 00:25 | NUR ---
Patient given written and verbal discharge instructions and verbalizes understanding. ER MD discussed with patient the results and treatment provided. Patient in stable condition. ID arm band removed. IV matthew device removed intact, no active bleeding. Occlusive dressing applied no rx given. Patient educated on pain management and to follow up with PMD. Pain Scale 0/10. Opportunity for questions provided and answered.
== END 2019-09-21 00:25 | disposition home or self-care (01) ==
LOC: SED 20:17
DX: E83.42 Hypomagnesemia (principal); E87.6 Hypokalemia; M79.18 Myalgia, other site; I10 Essential (primary) hypertension; E03.9 Hypothyroidism, unspecified; Z88.0 Allergy status to penicillin; Z91.018 Allergy to other foods; Z79.899 Other long term (current) drug therapy
CPT/HCPCS: 36415; 80053; 83735; 85025; 96365; 96366; 96375; 96376; 99283; J1200 ×2; J1885; J2060; J2270; J3475

== ENCOUNTER 2019-09-22 21:05 | Emergency (ER) | payer OTHER ==
[~2019-09-22] VITALS: Ht 162.6 cm; Wt 108.9 kg
[2019-09-22 21:14] VITALS: BP_SYST 102
[2019-09-22] MEDS ORDERED: MORPHINE 4 MG/ML INJ. SYRINGE IVP ONE (23:00)
[2019-09-22] MEDS ORDERED: MAGNESIUM SULFATE IN WATER 100 ML IV ONE (23:00)
[2019-09-22] MEDS ORDERED: DIPHENHYDRAMINE INJ 50 MG/ML VIAL IVP ONE (23:00)
[2019-09-22] MEDS ORDERED: MAGNESIUM SULFATE 100 ML IV ONE (23:18)
[2019-09-22] MEDS ORDERED: POTASSIUM CHLORIDE 20 MEQ TAB.PRT.SR PO ONE (23:30)
[2019-09-22 23:59] LABS: BASOPHILS # (AUTO) 0.2 K/uL (0.0-0.2); BASOPHILS % (AUTO) 1.5 % (0.0-2.0); EOSINOPHILS # (AUTO) 0.2 K/uL (0.0-0.4); EOSINOPHILS % (AUTO) 1.5 % (0.0-4.0); HEMATOCRIT 38.7 % (36-48); HEMOGLOBIN 12.6 g/dL (12.0-16.0); LYMPHOCYTES # (AUTO) 2.6 K/uL (1.0-5.5); LYMPHOCYTES % (AUTO) 22.6 % (20.5-51.5); MEAN CORPUSCULAR HEMOGLOBIN 27 pg (27-31); MEAN CORPUSCULAR HGB CONC 33 % (32-36); MEAN CORPUSCULAR VOLUME 84 fL (79.0-98.0); MONOCYTES # (AUTO) 0.7 K/uL (0.0-1.0); MONOCYTES % (AUTO) 6.1 % (1.7-9.3); NEUTROPHILS % (AUTO) 68.3 % (40.0-70.0); PLATELET COUNT (AUTO) 332 K/uL (130-430); RED BLOOD CELL COUNT(AUTO) 4.59 MIL/uL (4.2-6.2); RED CELL DISTRIBUTION WIDTH 19.2 % (9.0-15.0); WHITE BLOOD COUNT (AUTO) 11.6 K/uL (4.8-10.8)
[2019-09-23 00:15] LABS: ANION GAP 8 (5-15); CALCIUM 8.5 mg/dL (8.4-11.0); CHLORIDE 103 mmol/L (98-107); CREATININE 0.93 mg/dL (0.55-1.30); GLUCOSE 113 mg/dL (70-99); POTASSIUM 4.2 mmol/L (3.5-5.1); SODIUM SERUM 141 mmol/L (136-145); UREA NITROGEN, BLOOD 17 mg/dL (8-21)
[2019-09-23 00:24] LABS: ALANINE AMINOTRANSFERASE 22 U/L (12-78); ALBUMIN 3.6 g/dL (3.4-4.8); ASPARTATE AMINOTRANSFERASE 18 U/L (10-37); TOTAL BILIRUBIN 0.2 mg/dL (0.0-1.0)
[2019-09-23] MEDS ORDERED: MAGNESIUM SULFATE 50 ML IV ONE ×2 (00:30)
[2019-09-23 00:40] LABS: GFR AFRICAN AMERICAN 81 mL/min (>90)
[2019-09-23] MEDS ORDERED: DIPHENHYDRAMINE INJ 50 MG/ML VIAL IVP ONE (02:15)
[2019-09-23] MEDS ORDERED: ONDANSETRON HCL 4 MG/2 ML VIAL IVP ONE (02:15)
[2019-09-23] MEDS ORDERED: MORPHINE 4 MG/ML INJ. SYRINGE IVP ONE (02:15)
[2019-09-23 02:57] VITALS: BP_SYST 110
== END 2019-09-23 02:57 | disposition home or self-care (01) ==
LOC: SED 21:05
DX: G89.29 Other chronic pain (principal); M79.604 Pain in right leg; M79.605 Pain in left leg; N15.8 Other specified renal tubulo-interstitial diseases; I10 Essential (primary) hypertension; E03.9 Hypothyroidism, unspecified; Z88.0 Allergy status to penicillin; Z91.018 Allergy to other foods; Z79.899 Other long term (current) drug therapy
CPT/HCPCS: 36415; 71045; 80053; 83735; 83880; 84484; 85025; 96365; 96366; 96375; 96376; 99284; J1200 ×2; J2270 ×2; J2405; J3475

== ENCOUNTER 2019-09-24 17:41 | Emergency (ER) | payer OTHER ==
[~2019-09-24] VITALS: Ht 162.6 cm; Wt 108.9 kg
[2019-09-24 18:11] VITALS: BP_SYST 120
[2019-09-24 19:13] LABS: BASOPHILS # (AUTO) 0.1 K/uL (0.0-0.2); BASOPHILS % (AUTO) 1.1 % (0.0-2.0); EOSINOPHILS # (AUTO) 0.1 K/uL (0.0-0.4); EOSINOPHILS % (AUTO) 0.9 % (0.0-4.0); HEMATOCRIT 43.5 % (36-48); HEMOGLOBIN 14.3 g/dL (12.0-16.0); LYMPHOCYTES # (AUTO) 2.2 K/uL (1.0-5.5); LYMPHOCYTES % (AUTO) 20.3 % (20.5-51.5); MEAN CORPUSCULAR HEMOGLOBIN 28 pg (27-31); MEAN CORPUSCULAR HGB CONC 33 % (32-36); MEAN CORPUSCULAR VOLUME 84 fL (79.0-98.0); MONOCYTES # (AUTO) 0.3 K/uL (0.0-1.0); MONOCYTES % (AUTO) 2.7 % (1.7-9.3); NEUTROPHILS # (AUTO) 8.2 K/uL (1.8-7.7); PLATELET COUNT (AUTO) 306 K/uL (130-430); RED BLOOD CELL COUNT(AUTO) 5.19 MIL/uL (4.2-6.2); RED CELL DISTRIBUTION WIDTH 19.2 % (9.0-15.0); WHITE BLOOD COUNT (AUTO) 10.9 K/uL (4.8-10.8)
[2019-09-24 19:22] LABS: CALCIUM 9.7 mg/dL (8.4-11.0); CREATININE 0.95 mg/dL (0.55-1.30); POTASSIUM 3.9 mmol/L (3.5-5.1)
[2019-09-24 19:28] LABS: ALBUMIN 4.2 g/dL (3.4-4.8); TOTAL BILIRUBIN 0.5 mg/dL (0.0-1.0)
--- NOTE | 2019-09-24 19:30 | NUR ---
Patient to ER bed 3 to gown for evaluation. Side rails up.
--- NOTE | 2019-09-24 19:35 | NUR ---
DENNIS Cummings at bedside examining patient.
[2019-09-24] MEDS ORDERED: NACL 0.9% 1,000 ML IV ONE (19:45)
[2019-09-24] MEDS ORDERED: KETOROLAC TROMETHAMINE 30 MG VIAL IVP ONE (19:45)
[2019-09-24] MEDS ORDERED: MAGNESIUM SULFATE 1 GM/2 ML VIAL IVP ONE (19:45)
--- NOTE | 2019-09-24 19:45 | NUR ---
Pt came to the ED for leg pain. Reports pain is chronic and due to her Gitelman's syndrome. Reports taking morphine at home with no relief. Denies n/v/d or fever. No other complaints/injuries noted. Will cont. to monitor.
[2019-09-24] MEDS ORDERED: ONDANSETRON HCL 4 MG/2 ML VIAL IVP ONE (20:00)
[2019-09-24] MEDS ORDERED: LOPERAMIDE HCL 2 MG CAPSULE PO ONE (20:00)
--- NOTE | 2019-09-24 21:00 | NUR ---
Pt resting comfortably in bed, no signs of acute distress. Will cont. to monitor.
[2019-09-24] MEDS ORDERED: MORPHINE 4 MG/ML INJ. SYRINGE IVP ONE (21:30)
[2019-09-24] MEDS ORDERED: LOPERAMIDE HCL 2 MG CAPSULE ONE (21:58)
[2019-09-24 22:00] VITALS: BP_SYST 120
--- NOTE | 2019-09-24 22:00 | NUR ---
Patient given written and verbal discharge instructions and verbalizes understanding. ER MD Dr. Polo discussed with patient the results and treatment provided. Patient in stable condition. ID arm band removed. Milton-cath catheter removed intact and dressing applied, no actie bleeding. Patient educated on pain management and to follow up with PMD. Pain Scale 0/10. Opportunity for questions provided and answered. Medication side effect fact sheet provided.
--- NOTE | 2019-09-24 22:00 | NUR ---
Note undone in EDM - 09/25/19 at 0447 by [email or web address] Patient given written and verbal discharge instructions and verbalizes understanding. ER MD MD Dr. Polo discussed with patient the results and treatment provided. Patient in stable condition. ID arm band removed. Milton-cath catheter removed intact and dressing applied, no actie bleeding. Patient educated on pain management and to follow up with PMD. Pain Scale 0/10. Opportunity for questions provided and answered. Medication side effect fact sheet provided.
== END 2019-09-24 22:00 | disposition home or self-care (01) ==
LOC: SED 17:41
DX: R25.2 Cramp and spasm (principal); R11.2 Nausea with vomiting, unspecified; R19.7 Diarrhea, unspecified; I10 Essential (primary) hypertension; E03.9 Hypothyroidism, unspecified; Z88.0 Allergy status to penicillin; Z91.018 Allergy to other foods; Z79.899 Other long term (current) drug therapy
CPT/HCPCS: 36415; 80053; 83690; 83735; 85025; 86710; 96365; 96366; 96375; 99283; J1885; J2270; J2405; J3475; J7030

== ENCOUNTER 2019-09-25 23:21 | Emergency (ER) | payer OTHER ==
[~2019-09-25] VITALS: Ht 162.6 cm; Wt 111.1 kg
[2019-09-25 23:21] VITALS: BP_SYST 109
[~2019-09-25 23:21] MED LIST changes: +LOPERAMIDE HCL 2 MG CAPSULE ONE
[2019-09-25] MEDS ORDERED: MAGNESIUM SULFATE 50 ML IV ONE (23:30)
[2019-09-25] MEDS ORDERED: NACL 0.9% 1,000 ML IV ONE (23:30)
--- NOTE | 2019-09-25 23:30 | NUR ---
PT TO BED 4
--- NOTE | 2019-09-25 23:32 | NUR ---
DR. VASQUEZ AT BEDSIDE
[2019-09-26 00:21] LABS: BASOPHILS # (AUTO) 0.1 K/uL (0.0-0.2); BASOPHILS % (AUTO) 0.7 % (0.0-2.0); EOSINOPHILS # (AUTO) 0.2 K/uL (0.0-0.4); EOSINOPHILS % (AUTO) 1.3 % (0.0-4.0); HEMATOCRIT 38.7 % (36-48); HEMOGLOBIN 12.4 g/dL (12.0-16.0); LYMPHOCYTES % (AUTO) 22.9 % (20.5-51.5); MEAN CORPUSCULAR HEMOGLOBIN 27 pg (27-31); MEAN CORPUSCULAR HGB CONC 32 % (32-36); MEAN CORPUSCULAR VOLUME 84 fL (79.0-98.0); MONOCYTES # (AUTO) 0.6 K/uL (0.0-1.0); MONOCYTES % (AUTO) 4.7 % (1.7-9.3); NEUTROPHILS # (AUTO) 9.3 K/uL (1.8-7.7); NEUTROPHILS % (AUTO) 70.4 % (40.0-70.0); PLATELET COUNT (AUTO) 354 K/uL (130-430); RED BLOOD CELL COUNT(AUTO) 4.61 MIL/uL (4.2-6.2); RED CELL DISTRIBUTION WIDTH 18.9 % (9.0-15.0); WHITE BLOOD COUNT (AUTO) 13.2 K/uL (4.8-10.8)
[2019-09-26 00:42] LABS: ANION GAP 8 (5-15); CALCIUM 9.1 mg/dL (8.4-11.0); CHLORIDE 101 mmol/L (98-107); CREATININE 0.94 mg/dL (0.55-1.30); GLUCOSE 101 mg/dL (70-99); POTASSIUM 3.4 mmol/L (3.5-5.1); SODIUM SERUM 137 mmol/L (136-145); UREA NITROGEN, BLOOD 13 mg/dL (8-21)
[2019-09-26 00:46] LABS: GFR AFRICAN AMERICAN 80 mL/min (>90)
[2019-09-26 00:50] LABS: ALANINE AMINOTRANSFERASE 20 U/L (12-78); ALBUMIN 3.8 g/dL (3.4-4.8); ASPARTATE AMINOTRANSFERASE 14 U/L (10-37); PHOSPHORUS 3.4 mg/dL (2.7-4.5); TOTAL BILIRUBIN 0.5 mg/dL (0.0-1.0)
--- NOTE | 2019-09-26 02:00 | NUR ---
RECEIVED PATIENT IN ROOM AAOX4, SKIN W/D TO TOUCH, PLACED IN A HOSPITAL GOWN. PENDING DENNIS MA. Addendum: 09/26/19 at 0350 by [email or web address] PT HAS BEEN IN THE [facility] W/ PARAMEDICS PENDING A ROOM SINCE 2320.
--- NOTE | 2019-09-26 04:20 | NUR ---
IV MAG STILL INFUSING, PENDING NS IV COMPLETION FOR D/C. PT BEHAVIOR IS HISTORIONIC, CONTINUOS RE-DIRECTION NEEDED, EFFECTIVE AT TIMES.
[2019-09-26 05:39] VITALS: BP_SYST 108
--- NOTE | 2019-09-26 05:40 | NUR ---
Patient given written and verbal discharge instructions and verbalizes understanding. ER MD discussed with patient the results and treatment provided. Patient in stable condition. ID arm band removed. PORTAL CATH Catheter Access removed intact and 2x2 and occlusive dressing applied, site dsg intact.Patient educated on pain management and to follow up with PMD. Pain Scale 0/10. Opportunity for questions provided and answered. Medication side effect fact sheet provided.
== END 2019-09-26 05:40 | disposition home or self-care (01) ==
LOC: SED 23:21
DX: G40.89 Other seizures (principal); E87.6 Hypokalemia; E83.42 Hypomagnesemia; I10 Essential (primary) hypertension; E03.9 Hypothyroidism, unspecified; Z88.0 Allergy status to penicillin; Z91.018 Allergy to other foods; Z79.899 Other long term (current) drug therapy
CPT/HCPCS: 36415; 80053; 83735; 84100; 84484; 85025; 96365; 99283; J3475; J7030

== ENCOUNTER 2019-09-29 02:48 | Emergency (ER) | payer OTHER ==
[~2019-09-29] VITALS: Ht 167.6 cm; Wt 111.1 kg
[~2019-09-29 02:48] MED LIST changes: -LOPERAMIDE HCL 2 MG CAPSULE ONE
[2019-09-29 02:55] VITALS: BP_SYST 133
--- NOTE | 2019-09-29 03:09 | NUR ---
Patient to ER bed 1 to gown for evaluation. Side rails up. Report given to JESSIE HUNG.
[2019-09-29] MEDS ORDERED: NACL 0.9% 1,000 ML IV ONE (03:12)
[2019-09-29] MEDS ORDERED: MORPHINE 4 MG/ML INJ. SYRINGE IVP ONE ×2 (03:15→05:45)
[2019-09-29] MEDS ORDERED: ONDANSETRON HCL 4 MG/2 ML VIAL IVP ONE (03:15)
[2019-09-29] MEDS ORDERED: DIPHENHYDRAMINE INJ 50 MG/ML VIAL IVP ONE (03:15)
--- NOTE | 2019-09-29 03:15 | NUR ---
Pt came to the ED for leg cramps and pains. Reports that her magnesium levels gets low. Denies n/v/d or fever. Reports pt is in a special study for her condition at [facility] 3 weeks ago. No other complaints/injuries noted. Will cont. to monitor.
[2019-09-29] MEDS ORDERED: MAGNESIUM SULFATE 50 ML IV ONE ×2 (03:30→05:45)
--- NOTE | 2019-09-29 03:30 | NUR ---
ER at bedside examining patient.
--- NOTE | 2019-09-29 04:00 | NUR ---
Retrieved access to portacath using sterile technique.
[2019-09-29 04:27] LABS: ALBUMIN 3.6 g/dL (3.4-4.8); CALCIUM 8.6 mg/dL (8.4-11.0); CREATININE 1.05 mg/dL (0.55-1.30); POTASSIUM 3.2 mmol/L (3.5-5.1); TOTAL BILIRUBIN 0.3 mg/dL (0.0-1.0)
[2019-09-29 04:28] LABS: HEMATOCRIT 40.1 % (36-48); HEMOGLOBIN 12.7 g/dL (12.0-16.0); MEAN CORPUSCULAR HEMOGLOBIN 27 pg (27-31); MEAN CORPUSCULAR HGB CONC 32 % (32-36); MEAN CORPUSCULAR VOLUME 84 fL (79.0-98.0); PLATELET COUNT (AUTO) 360 K/uL (130-430); RED BLOOD CELL COUNT(AUTO) 4.79 MIL/uL (4.2-6.2); RED CELL DISTRIBUTION WIDTH 18.7 % (9.0-15.0); WHITE BLOOD COUNT (AUTO) 14.3 K/uL (4.8-10.8)
[2019-09-29 04:49] LABS: ATYPICAL LYMPHOCYTES % 0 % (0-0); BAND % (MANUAL) 0 % (0-6); LYMPHOCYTES % (MANUAL) 23 % (20-46); MONOCYTES % (MANUAL) 5 % (0-11)
[2019-09-29 04:50] LABS: BASOPHILS % (MANUAL) 1 % (0-2); EOSINOPHILS % (MANUAL) 1 % (0-7); METAMYELOCYTES % 0 % (0-0); MYELOCYTES % 0 % (0-0)
[2019-09-29] MEDS ORDERED: POTASSIUM CHLORIDE 20 MEQ TAB.PRT.SR PO ONE (05:45)
[2019-09-29 06:55] VITALS: BP_SYST 133
--- NOTE | 2019-09-29 06:55 | NUR ---
Patient given written and verbal discharge instructions and verbalizes understanding. ER MD Dr. Chris discussed with patient the results and treatment provided. Patient in stable condition. ID arm band removed. IV catheter removed intact and dressing applied, no active bleeding. Patient educated on pain management and to follow up with PMD. Pain Scale 0/10. Opportunity for questions provided and answered. Medication side effect fact sheet provided.
== END 2019-09-29 06:55 | disposition home or self-care (01) ==
LOC: SED 02:48
DX: N15.8 Other specified renal tubulo-interstitial diseases (principal); E83.42 Hypomagnesemia; E87.6 Hypokalemia; I10 Essential (primary) hypertension; N28.9 Disorder of kidney and ureter, unspecified; E03.9 Hypothyroidism, unspecified; F41.9 Anxiety disorder, unspecified; Z90.710 Acquired absence of both cervix and uterus; Z88.0 Allergy status to penicillin; Z91.018 Allergy to other foods; Z79.899 Other long term (current) drug therapy
CPT/HCPCS: 36415; 80053; 83690; 83735; 85007; 85027; 96365; 96366; 96375; 96376; 99283; J1200; J2270; J2405; J3475; J7030

== ENCOUNTER 2019-10-02 21:29 | Emergency (ER) | payer OTHER ==
[~2019-10-02] VITALS: Ht 162.6 cm; Wt 113.4 kg
[2019-10-02] MEDS ORDERED: MORPHINE 4 MG/ML INJ. SYRINGE IVP ONE (21:45)
[2019-10-02] MEDS ORDERED: MAGNESIUM SULFATE 4 GM in D5W 250 ML IV ONE (21:45)
[2019-10-02] MEDS ORDERED: DIPHENHYDRAMINE INJ 50 MG/ML VIAL IVP ONE (21:45)
[2019-10-02] MEDS ORDERED: ONDANSETRON HCL 4 MG/2 ML VIAL IVP ONE (21:45)
[2019-10-02 21:50] VITALS: BP_SYST 105
--- NOTE | 2019-10-02 21:50 | NUR ---
Pt BIB EMS with c/o bilateral lower extremity muscle pain. Pt A&Ox4. Pt daughter states pt began having bilteral leg pain at approximately 2049. Pt states pain 06/16. Pt daughter states pt had 3 seizures lasting approximately 2 minutes each and states "they are more like muscle spasms." Pt has history of Gitelman syndrome. Will continue to monitor.
--- NOTE | 2019-10-02 21:50 | NUR ---
Pt placed to ER bed 06, to gown, to court recording monitor. Report given to ABHILASH Richard.
--- NOTE | 2019-10-02 21:54 | NUR ---
Lab at bedside.
[2019-10-02 22:03] LABS: BASOPHILS # (AUTO) 0.2 K/uL (0.0-0.2); BASOPHILS % (AUTO) 1.2 % (0.0-2.0); EOSINOPHILS # (AUTO) 0.2 K/uL (0.0-0.4); EOSINOPHILS % (AUTO) 1.8 % (0.0-4.0); HEMATOCRIT 41.5 % (36-48); HEMOGLOBIN 13.3 g/dL (12.0-16.0); LYMPHOCYTES # (AUTO) 2.8 K/uL (1.0-5.5); LYMPHOCYTES % (AUTO) 22.5 % (20.5-51.5); MEAN CORPUSCULAR HEMOGLOBIN 27 pg (27-31); MEAN CORPUSCULAR HGB CONC 32 % (32-36); MEAN CORPUSCULAR VOLUME 85 fL (79.0-98.0); MONOCYTES # (AUTO) 0.8 K/uL (0.0-1.0); MONOCYTES % (AUTO) 6.5 % (1.7-9.3); NEUTROPHILS # (AUTO) 8.4 K/uL (1.8-7.7); PLATELET COUNT (AUTO) 426 K/uL (130-430); WHITE BLOOD COUNT (AUTO) 12.4 K/uL (4.8-10.8)
[2019-10-02 22:17] LABS: CALCIUM 9.2 mg/dL (8.4-11.0); CREATININE 1.01 mg/dL (0.55-1.30); POTASSIUM 4.1 mmol/L (3.5-5.1)
--- NOTE | 2019-10-02 22:17 | NUR ---
Pt maday catheter accessed via matthew needle using sterile technique with masks provided to pt, pt daughter, and nurse.
[2019-10-02 22:22] LABS: ALBUMIN 3.8 g/dL (3.4-4.8); TOTAL BILIRUBIN 0.4 mg/dL (0.0-1.0)
[2019-10-02] MEDS ORDERED: MAGNESIUM SULFATE 1 GM/2 ML VIAL ONE (22:22)
--- NOTE | 2019-10-02 22:30 | NUR ---
Pt medicated per MD orders. Pt tolerated well. Will continue to monitor.
--- NOTE | 2019-10-02 23:59 | NUR ---
Magnesium infusing. Pt tolerating well. Pt states pain 7/10 in bilateral lower legs. MD Stephens notified. Will continue to monitor.
[2019-10-03] MEDS ORDERED: DIPHENHYDRAMINE INJ 50 MG/ML VIAL IVP ONE (00:45)
[2019-10-03] MEDS ORDERED: MORPHINE 4 MG/ML INJ. SYRINGE IVP ONE (00:45)
--- NOTE | 2019-10-03 00:46 | NUR ---
ABHILSAH Bustos medicated pt.
--- NOTE | 2019-10-03 01:16 | NUR ---
Per MD Stephens, Pt to be discharged after magnesium finishes infusing.
[2019-10-03] MEDS ORDERED: LORazepam 2 MG/ML VIAL IVP ONE (02:15)
--- NOTE | 2019-10-03 02:24 | NUR ---
Pt medicated per MD orders. Pt tolerated well. Will continue to monitor.
[2019-10-03 02:41] VITALS: BP_SYST 113
--- NOTE | 2019-10-03 02:41 | NUR ---
Patient given written and verbal discharge instructions and verbalizes understanding. ER MD Stephens discussed with patient the results and treatment provided. Patient in stable condition. ID arm band removed. Alas needle removed from maday catheter intact and dressing applied, no active bleeding. No Rx given. Patient educated on pain management and to follow up with PMD. Pain Scale 2/10. Opportunity for questions provided and answered. Medication side effect fact sheet provided.
== END 2019-10-03 02:41 | disposition home or self-care (01) ==
LOC: SED 21:29
DX: E83.42 Hypomagnesemia (principal); R25.2 Cramp and spasm; I10 Essential (primary) hypertension; E03.9 Hypothyroidism, unspecified; Z88.0 Allergy status to penicillin; Z91.018 Allergy to other foods
CPT/HCPCS: 36415; 80053; 83735; 85025; 96365; 96366; 96375 ×2; 96376; 99283; J1200 ×2; J2060; J2270 ×2; J2405; J3475

== ENCOUNTER 2019-10-04 18:18 | Emergency (ER) | payer OTHER ==
[~2019-10-04] VITALS: Ht 157.5 cm; Wt 104.3 kg
[2019-10-04 18:25] VITALS: BP_SYST 122
--- NOTE | 2019-10-04 18:25 | NUR ---
Placed in room 01. Placed on cardiac cath lab radiology technologist, blood pressure machine and pulse oximeter. To gown for exam. Side rails up.
[2019-10-04] MEDS ORDERED: ONDANSETRON HCL 4 MG/2 ML VIAL IVP ONE (18:30)
[2019-10-04] MEDS ORDERED: DIPHENHYDRAMINE INJ 50 MG/ML VIAL IVP ONE ×2 (18:30→23:30)
[2019-10-04] MEDS ORDERED: ASPIRIN 81 MG TAB.CHEW PO ONE (18:30)
[2019-10-04] MEDS ORDERED: MORPHINE 2 MG/ML INJ. SYRINGE IVP ONE (18:30)
--- NOTE | 2019-10-04 19:00 | NUR ---
Port-a-cath on R chest accessed with matthew needle using sterile technique, flushed with 10 mL normal saline, and saline locked. There is no resistance with normal saline flush. Device is secured using large tegaderm from central line dressing kit.
[2019-10-04 19:03] LABS: BASOPHILS # (AUTO) 0.1 K/uL (0.0-0.2); BASOPHILS % (AUTO) 1.1 % (0.0-2.0); EOSINOPHILS # (AUTO) 0.1 K/uL (0.0-0.4); EOSINOPHILS % (AUTO) 0.9 % (0.0-4.0); HEMATOCRIT 42.1 % (36-48); HEMOGLOBIN 13.8 g/dL (12.0-16.0); LYMPHOCYTES # (AUTO) 2.3 K/uL (1.0-5.5); LYMPHOCYTES % (AUTO) 18.7 % (20.5-51.5); MEAN CORPUSCULAR HEMOGLOBIN 28 pg (27-31); MEAN CORPUSCULAR HGB CONC 33 % (32-36); MEAN CORPUSCULAR VOLUME 85 fL (79.0-98.0); MONOCYTES # (AUTO) 0.5 K/uL (0.0-1.0); MONOCYTES % (AUTO) 4.4 % (1.7-9.3); NEUTROPHILS # (AUTO) 9.1 K/uL (1.8-7.7); NEUTROPHILS % (AUTO) 74.9 % (40.0-70.0); PLATELET COUNT (AUTO) 424 K/uL (130-430); RED BLOOD CELL COUNT(AUTO) 4.94 MIL/uL (4.2-6.2); RED CELL DISTRIBUTION WIDTH 18.3 % (9.0-15.0); WHITE BLOOD COUNT (AUTO) 12.1 K/uL (4.8-10.8)
--- NOTE | 2019-10-04 19:12 | NUR ---
Patient AAO x 4 BIB BLS with complaints of bilateral lower extremity 9/10 cramping pain since 1700 this afternoon when she woke up on her recliner chair at home. She denies taking pain medication today. Reports nausea with no episodes of vomiting. Even chest rise and fall with respirations. Will continue to monitor.
[2019-10-04 19:23] LABS: CALCIUM 9.3 mg/dL (8.4-11.0); CREATININE 0.98 mg/dL (0.55-1.30)
[2019-10-04 19:34] LABS: ALBUMIN 3.9 g/dL (3.4-4.8); TOTAL BILIRUBIN 0.4 mg/dL (0.0-1.0)
--- NOTE | 2019-10-04 19:45 | NUR ---
ER Dr. Blair at bedside examining patient.
[2019-10-04] MEDS ORDERED: NACL 0.9% 1,000 ML IV ONE (20:00)
--- NOTE | 2019-10-04 20:30 | NUR ---
Pt moaning in bed. Pt yelling "Johnnie, I need ativan!" Dr. Blair notified. Orders to be received.
[2019-10-04] MEDS ORDERED: LORazepam 2 MG/ML VIAL IVP ONE (20:45)
[2019-10-04] MEDS ORDERED: MAGNESIUM SULFATE 50 ML IV ONE ×2 (20:45→22:00)
[2019-10-04] MEDS ORDERED: LORazepam 2 MG/ML VIAL ONE (20:50)
[2019-10-04] MEDS ORDERED: MAGNESIUM SULFATE 1 GM/2 ML VIAL IVP ONE (22:00)
[2019-10-04] MEDS ORDERED: MORPHINE 4 MG/ML INJ. SYRINGE IVP ONE (23:30)
--- NOTE | 2019-10-04 23:41 | NUR ---
Patient given written and verbal discharge instructions and verbalizes understanding. ER MD Blair discussed with patient the results and treatment provided. Patient in stable condition. ID arm band removed. IV catheter removed intact and dressing applied, no active bleeding. No Rx given. Patient educated on pain management and to follow up with PMD. Pain Scale 0. Opportunity for questions provided and answered. Medication side effect fact sheet provided.
[2019-10-04 23:45] VITALS: BP_SYST 126
== END 2019-10-04 23:45 | disposition home or self-care (01) ==
LOC: SED 18:18
DX: E83.42 Hypomagnesemia (principal); M79.18 Myalgia, other site; I10 Essential (primary) hypertension; E03.9 Hypothyroidism, unspecified; Z88.0 Allergy status to penicillin; Z91.018 Allergy to other foods; Z79.899 Other long term (current) drug therapy
CPT/HCPCS: 36415; 71045; 80053; 82550; 83735; 83880; 84484; 85025; 93005; 96365; 96366; 96375; 96376; 99284; J1200; J2060; J2270 ×2; J2405; J3475; J7030

== ENCOUNTER 2019-10-07 01:24 | Emergency (ER) | payer OTHER ==
[~2019-10-07] VITALS: Ht 162.6 cm; Wt 113.4 kg
[2019-10-07 01:27] VITALS: BP_SYST 104
--- NOTE | 2019-10-07 01:38 | NUR ---
Patient to ER bed 7 to gown for evaluation. Side rails up. Report given to Beverley HUNG.
--- NOTE | 2019-10-07 01:45 | NUR ---
Patient was BIB BLS from home c/o bilateral leg pain that woke her up from her sleep. No trauma, pt denies N/V, fever. Per patient "my blood vessels on my legs are popping." No other injuries/complaints per patient or noted.
--- NOTE | 2019-10-07 01:56 | NUR ---
Accessed port-a-cath to right chest using sterile technique. Pt tolerated well. No erythema, edema or infiltration.
--- NOTE | 2019-10-07 02:00 | NUR ---
ER Dr. Blair at bedside examining patient.
[2019-10-07] MEDS ORDERED: MAGNESIUM SULFATE 4 GM in D5W 250 ML IV ONE (02:15)
[2019-10-07] MEDS ORDERED: MORPHINE 4 MG/ML INJ. SYRINGE IVP ONE ×2 (02:15→02:45)
[2019-10-07] MEDS ORDERED: DIPHENHYDRAMINE INJ 50 MG/ML VIAL IVP ONE ×2 (02:15→05:00)
[2019-10-07] MEDS ORDERED: MAGNESIUM SULFATE 50 ML IV ONE ×2 (02:30)
[2019-10-07 02:43] LABS: BASOPHILS # (AUTO) 0.2 K/uL (0.0-0.2); BASOPHILS % (AUTO) 1.3 % (0.0-2.0); EOSINOPHILS # (AUTO) 0.3 K/uL (0.0-0.4); EOSINOPHILS % (AUTO) 2.4 % (0.0-4.0); HEMATOCRIT 38.1 % (36-48); HEMOGLOBIN 12.3 g/dL (12.0-16.0); LYMPHOCYTES # (AUTO) 2.8 K/uL (1.0-5.5); LYMPHOCYTES % (AUTO) 23.9 % (20.5-51.5); MEAN CORPUSCULAR HEMOGLOBIN 28 pg (27-31); MEAN CORPUSCULAR HGB CONC 32 % (32-36); MEAN CORPUSCULAR VOLUME 85 fL (79.0-98.0); MONOCYTES # (AUTO) 0.6 K/uL (0.0-1.0); MONOCYTES % (AUTO) 5.6 % (1.7-9.3); NEUTROPHILS # (AUTO) 7.8 K/uL (1.8-7.7); NEUTROPHILS % (AUTO) 66.8 % (40.0-70.0); PLATELET COUNT (AUTO) 409 K/uL (130-430); RED BLOOD CELL COUNT(AUTO) 4.48 MIL/uL (4.2-6.2); RED CELL DISTRIBUTION WIDTH 18.1 % (9.0-15.0); WHITE BLOOD COUNT (AUTO) 11.6 K/uL (4.8-10.8)
[2019-10-07 02:57] LABS: CALCIUM 8.4 mg/dL (8.4-11.0); CREATININE 0.91 mg/dL (0.55-1.30); POTASSIUM 4.3 mmol/L (3.5-5.1)
[2019-10-07 03:04] LABS: ALBUMIN 3.5 g/dL (3.4-4.8); TOTAL BILIRUBIN 0.3 mg/dL (0.0-1.0)
--- NOTE | 2019-10-07 03:22 | NUR ---
Patient resting comfortably in bed. No acute distress, will continue to monitor.
--- NOTE | 2019-10-07 04:20 | NUR ---
Patient resting comfortably in bed. No acute distress, will continue to monitor.
[2019-10-07] MEDS ORDERED: MORPHINE 2 MG/ML INJ. SYRINGE IVP ONE (05:00)
[2019-10-07 05:30] VITALS: BP_SYST 119
== END 2019-10-07 05:30 | disposition home or self-care (01) ==
LOC: SED 01:24
DX: E83.42 Hypomagnesemia (principal); N15.8 Other specified renal tubulo-interstitial diseases; I10 Essential (primary) hypertension; N28.9 Disorder of kidney and ureter, unspecified; E03.9 Hypothyroidism, unspecified; F41.9 Anxiety disorder, unspecified; Z79.899 Other long term (current) drug therapy; Z88.0 Allergy status to penicillin; Z91.018 Allergy to other foods
CPT/HCPCS: 36415; 80053; 83735; 85025; 96365; 96366; 96375; 96376; 99283; J1200; J2270 ×2; J3475

== ENCOUNTER 2019-10-09 19:57 | Emergency (ER) | payer OTHER ==
[~2019-10-09] VITALS: Ht 162.6 cm; Wt 113.4 kg
[2019-10-09 20:00] VITALS: BP_SYST 111
[2019-10-09 22:30] LABS: POTASSIUM 4.6 mmol/L (3.5-5.1)
--- NOTE | 2019-10-09 23:10 | NUR ---
Note jaime in EDM - 10/10/19 at 0702 by [email or web address] Pt c/o 05/[address] Mohr made aware.
--- NOTE | 2019-10-09 23:11 | NUR ---
ER at bedside examining patient.
--- NOTE | 2019-10-09 23:11 | NUR ---
Patient to ER bed 8 to gown for evaluation. Side rails up. Report given to Aman HUNG.
[2019-10-09] MEDS ORDERED: MORPHINE 4 MG/ML INJ. SYRINGE IVP ONE (23:15)
[2019-10-09] MEDS ORDERED: MAGNESIUM SULFATE 4 GM in D5W 250 ML IV ONE (23:15)
[2019-10-09] MEDS ORDERED: NACL 0.9% 1,000 ML IV ONE (23:15)
--- NOTE | 2019-10-09 23:15 | NUR ---
Pt c/o 05/[address] Mohr made aware.
[2019-10-09] MEDS ORDERED: MAGNESIUM SULFATE 100 ML IV ONE (23:47)
[2019-10-10] MEDS ORDERED: DIPHENHYDRAMINE INJ 50 MG/ML VIAL ONE (00:04)
[2019-10-10] MEDS ORDERED: ONDANSETRON HCL 4 MG/2 ML VIAL ONE (00:05)
[2019-10-10] MEDS ORDERED: ONDANSETRON HCL 4 MG/2 ML VIAL IVP ONE ×2 (00:15→01:30)
[2019-10-10] MEDS ORDERED: MAGNESIUM SULFATE 50 ML IV ONE ×2 (00:15)
[2019-10-10] MEDS ORDERED: DIPHENHYDRAMINE INJ 50 MG/ML VIAL IVP ONE ×2 (00:15→01:30)
--- NOTE | 2019-10-10 01:15 | NUR ---
Magnesium Sulfate continues to infuse at 25 mL/hr to patent and secure right chest wall Port-A-Cath with no s/s infiltration.
--- NOTE | 2019-10-10 01:25 | NUR ---
Pt c/o 04/[address] Mohr made aware.
[2019-10-10] MEDS ORDERED: MORPHINE 2 MG/ML INJ. SYRINGE IVP ONE (01:30)
[2019-10-10 03:20] VITALS: BP_SYST 116
--- NOTE | 2019-10-10 03:20 | NUR ---
Patient given written and verbal discharge instructions and verbalizes understanding. ER MD discussed with patient the results and treatment provided. Patient in stable condition. ID arm band removed. No Rx given. Patient educated on pain management and to follow up with PMD. Pain Scale 5/10. Opportunity for questions provided and answered. Medication side effect fact sheet provided.
== END 2019-10-10 03:20 | disposition home or self-care (01) ==
LOC: SED 19:57
DX: E83.42 Hypomagnesemia (principal); R25.2 Cramp and spasm; I10 Essential (primary) hypertension; N28.9 Disorder of kidney and ureter, unspecified; E03.9 Hypothyroidism, unspecified; F41.9 Anxiety disorder, unspecified; Z90.710 Acquired absence of both cervix and uterus; Z79.899 Other long term (current) drug therapy; Z88.0 Allergy status to penicillin; Z91.018 Allergy to other foods
CPT/HCPCS: 36415; 83735; 84132; 96365; 96366; 96375; 96376; 99283; J1200; J2270 ×2; J2405; J3475; J7030

== ENCOUNTER 2019-10-14 13:06 | Emergency (ER) | payer OTHER ==
[~2019-10-14] VITALS: Ht 162.6 cm; Wt 104.3 kg
[2019-10-14 13:21] VITALS: BP_SYST 158
--- NOTE | 2019-10-14 13:28 | NUR ---
Patient triaged and placed in waiting room. VSS and patient appears in no acute distress at this time. Accompanied by self, awaiting available bed, and MD notified of need for MSE.
[2019-10-14 14:06] LABS: BASOPHILS # (AUTO) 0.2 K/uL (0.0-0.2); BASOPHILS % (AUTO) 1.6 % (0.0-2.0); EOSINOPHILS # (AUTO) 0.2 K/uL (0.0-0.4); EOSINOPHILS % (AUTO) 1.6 % (0.0-4.0); HEMOGLOBIN 13.6 g/dL (12.0-16.0); LYMPHOCYTES # (AUTO) 3.3 K/uL (1.0-5.5); LYMPHOCYTES % (AUTO) 27.7 % (20.5-51.5); MEAN CORPUSCULAR HEMOGLOBIN 28 pg (27-31); MEAN CORPUSCULAR HGB CONC 32 % (32-36); MEAN CORPUSCULAR VOLUME 85 fL (79.0-98.0); MONOCYTES # (AUTO) 0.9 K/uL (0.0-1.0); MONOCYTES % (AUTO) 7.5 % (1.7-9.3); NEUTROPHILS # (AUTO) 7.3 K/uL (1.8-7.7); NEUTROPHILS % (AUTO) 61.6 % (40.0-70.0); PLATELET COUNT (AUTO) 382 K/uL (130-430); RED BLOOD CELL COUNT(AUTO) 4.95 MIL/uL (4.2-6.2); RED CELL DISTRIBUTION WIDTH 17.1 % (9.0-15.0); WHITE BLOOD COUNT (AUTO) 11.9 K/uL (4.8-10.8)
[2019-10-14 14:14] LABS: CALCIUM 8.8 mg/dL (8.4-11.0); CREATININE 1.04 mg/dL (0.55-1.30); POTASSIUM 3.9 mmol/L (3.5-5.1)
[2019-10-14 14:20] LABS: ALBUMIN 3.9 g/dL (3.4-4.8); TOTAL BILIRUBIN 0.4 mg/dL (0.0-1.0)
--- NOTE | 2019-10-14 16:40 | NUR ---
BROUGHT BACK TO BED #5 VIA WHEELCHAIR BY SUDHEER
--- NOTE | 2019-10-14 16:45 | NUR ---
Pt AAOx4 presents to ED c/o 06/16 bilteral leg pain and knee swelling x 1 day. Pt reports she took 15 mg Morphine at home with no relief. Skin pink dry and warm, breathing even and unlabored. No other injuries/complaints per pt/noted. Will continue to monitor.
--- NOTE | 2019-10-14 16:51 | NUR ---
DR GAN SPEAKING WITH DR HOLLY
[2019-10-14] MEDS ORDERED: MAGNESIUM SULFATE 4 GM in D5W 250 ML IV ONE (17:00)
[2019-10-14] MEDS ORDERED: MAGNESIUM SULFATE 1 GM/2 ML VIAL ONE (17:50)
[2019-10-14] MEDS ORDERED: KETOROLAC TROMETHAMINE 30 MG VIAL IVP ONE (18:00)
[2019-10-14] MEDS ORDERED: DIPHENHYDRAMINE INJ 50 MG/ML VIAL IVP ONE (18:00)
--- NOTE | 2019-10-14 18:40 | NUR ---
PT RESTING IN [facility] AT BEDSIDE. PT CALM AND COOPERATIVE AT THIS TIME.
--- NOTE | 2019-10-14 19:10 | NUR ---
REPORT GIVEN TO ANDREI LEIGH AND SUDHEER HUNG
[2019-10-14] MEDS ORDERED: ONDANSETRON HCL 4 MG/2 ML VIAL IVP ONE ×2 (19:30→20:00)
[2019-10-14 20:28] VITALS: BP_SYST 130
--- NOTE | 2019-10-14 20:28 | NUR ---
Patient given written and verbal discharge instructions and verbalizes understanding. ER MD Dr. Brito discussed with patient the results and treatment provided. Patient in stable condition. ID arm band removed. Port-a-cath removed intact and dressing applied, no active bleeding. No Rx of given. Patient educated on pain management and to follow up with PMD. Pain Scale 0/10. Opportunity for questions provided and answered. Medication side effect fact sheet provided.
== END 2019-10-14 20:28 | disposition home or self-care (01) ==
LOC: SED 13:06
DX: N15.8 Other specified renal tubulo-interstitial diseases (principal); E83.42 Hypomagnesemia; I10 Essential (primary) hypertension; N28.9 Disorder of kidney and ureter, unspecified; E03.9 Hypothyroidism, unspecified; F41.9 Anxiety disorder, unspecified; Z79.899 Other long term (current) drug therapy; Z76.5 Malingerer [conscious simulation]; Z88.0 Allergy status to penicillin; Z91.018 Allergy to other foods
CPT/HCPCS: 36415; 80053; 83735; 85025; 96365; 96366; 96375; 99283; J1200; J1885; J2405; J3475

== ENCOUNTER 2019-10-16 20:00 | Emergency (ER) | payer OTHER ==
[2019-10-16 20:06] VITALS: BP_SYST 126
[2019-10-16] MEDS ORDERED: MORPHINE 4 MG/ML INJ. SYRINGE IVP ONE (20:15)
[2019-10-16] MEDS ORDERED: DIPHENHYDRAMINE INJ 50 MG/ML VIAL IVP ONE (20:15)
[2019-10-16] MEDS ORDERED: MAGNESIUM SULFATE 50 ML IV ONE ×2 (20:15)
[2019-10-16] MEDS ORDERED: ONDANSETRON HCL 4 MG/2 ML VIAL ONE (21:54)
[2019-10-16] MEDS ORDERED: ONDANSETRON HCL 4 MG/2 ML VIAL IVP ONE (22:15)
[2019-10-16 23:05] LABS: CALCIUM 8.7 mg/dL (8.4-11.0); CREATININE 0.94 mg/dL (0.55-1.30); POTASSIUM 4.7 mmol/L (3.5-5.1)
[2019-10-17] MEDS ORDERED: MORPHINE 4 MG/ML INJ. SYRINGE IVP ONE (00:15)
[2019-10-17 00:30] VITALS: BP_SYST 132
== END 2019-10-17 00:30 | disposition home or self-care (01) ==
LOC: SED 20:00
DX: E83.42 Hypomagnesemia (principal); I10 Essential (primary) hypertension; N28.9 Disorder of kidney and ureter, unspecified; E03.9 Hypothyroidism, unspecified; F41.9 Anxiety disorder, unspecified; N15.8 Other specified renal tubulo-interstitial diseases; Z90.710 Acquired absence of both cervix and uterus; Z88.0 Allergy status to penicillin; Z91.018 Allergy to other foods; Z79.899 Other long term (current) drug therapy
CPT/HCPCS: 36415; 71250; 80048; 83735; 96365; 96366; 96375; 96376; 99284; J1200; J2270 ×2; J2405; J3475; J7030

== ENCOUNTER 2019-10-19 16:29 | Emergency (ER) | payer OTHER ==
[~2019-10-19] VITALS: Ht 162.6 cm; Wt 108.9 kg
[2019-10-19 16:50] VITALS: BP_SYST 162
[2019-10-19 18:13] LABS: ALBUMIN 3.7 g/dL (3.4-4.8); CALCIUM 9.1 mg/dL (8.4-11.0); CREATININE 0.95 mg/dL (0.55-1.30); TOTAL BILIRUBIN 0.3 mg/dL (0.0-1.0)
[2019-10-19 18:22] LABS: POTASSIUM 3.6 mmol/L (3.5-5.1)
[2019-10-19 18:58] LABS: BASOPHILS # (AUTO) 0.1 K/uL (0.0-0.2); BASOPHILS % (AUTO) 1.1 % (0.0-2.0); EOSINOPHILS # (AUTO) 0.3 K/uL (0.0-0.4); EOSINOPHILS % (AUTO) 3.3 % (0.0-4.0); HEMATOCRIT 40.6 % (36-48); HEMOGLOBIN 13.3 g/dL (12.0-16.0); LYMPHOCYTES # (AUTO) 1.6 K/uL (1.0-5.5); LYMPHOCYTES % (AUTO) 18.7 % (20.5-51.5); MEAN CORPUSCULAR HEMOGLOBIN 28 pg (27-31); MEAN CORPUSCULAR HGB CONC 33 % (32-36); MEAN CORPUSCULAR VOLUME 85 fL (79.0-98.0); MONOCYTES # (AUTO) 0.6 K/uL (0.0-1.0); MONOCYTES % (AUTO) 6.8 % (1.7-9.3); NEUTROPHILS # (AUTO) 6.1 K/uL (1.8-7.7); NEUTROPHILS % (AUTO) 70.1 % (40.0-70.0); PLATELET COUNT (AUTO) 192 K/uL (130-430); RED BLOOD CELL COUNT(AUTO) 4.77 MIL/uL (4.2-6.2); RED CELL DISTRIBUTION WIDTH 16.2 % (9.0-15.0); WHITE BLOOD COUNT (AUTO) 8.7 K/uL (4.8-10.8)
[2019-10-19] MEDS: NACL 0.9% 1,000 ML IV ONE (19:45)
[2019-10-19] MEDS: ONDANSETRON HCL 4 MG/2 ML VIAL IVP ONE (19:46)
[2019-10-19] MEDS: DIPHENHYDRAMINE INJ 50 MG/ML VIAL IVP ONE (19:47)
[2019-10-19] MEDS: KETOROLAC TROMETHAMINE 30 MG VIAL IVP ONE (19:49)
[2019-10-19] MEDS: metroNIDAZOLE 500 mg/NS 100 ML IV ONE (19:51)
[2019-10-19] MEDS: MAGNESIUM SULFATE 50 ML IV ONE (19:54)
[2019-10-19 21:34] VITALS: BP_SYST 154
== END 2019-10-19 21:34 | disposition home or self-care (01) ==
LOC: SED 16:29
DX: K52.9 Noninfective gastroenteritis and colitis, unspecified (principal); I10 Essential (primary) hypertension; N28.9 Disorder of kidney and ureter, unspecified; E03.9 Hypothyroidism, unspecified; F41.9 Anxiety disorder, unspecified; E83.42 Hypomagnesemia; N15.8 Other specified renal tubulo-interstitial diseases; Z90.710 Acquired absence of both cervix and uterus; Z88.0 Allergy status to penicillin; Z91.018 Allergy to other foods; Z79.899 Other long term (current) drug therapy
CPT/HCPCS: 36415; 80053; 83605; 83735; 85025; 87040; 96365; 96366; 96368; 96375; 99284; J1200; J1885; J2405; J3475; J3490; J7030

== ENCOUNTER 2019-10-27 18:02 | Emergency (ER) | payer OTHER ==
[~2019-10-27] VITALS: Ht 162.6 cm; Wt 104.3 kg
[2019-10-27 18:22] VITALS: BP_SYST 126
--- NOTE | 2019-10-27 18:27 | NUR ---
Patient triaged and placed on EMS gurney. VSS and patient appears in no acute distress at this time. Accompanied by ems, awaiting available bed, and MD notified of need for MSE.
[2019-10-27 19:05] LABS: CALCIUM 9.3 mg/dL (8.4-11.0); CREATININE 1.05 mg/dL (0.55-1.30); POTASSIUM 3.9 mmol/L (3.5-5.1)
[2019-10-27 19:09] LABS: BASOPHILS # (AUTO) 0.1 K/uL (0.0-0.2); BASOPHILS % (AUTO) 1.1 % (0.0-2.0); EOSINOPHILS # (AUTO) 0.1 K/uL (0.0-0.4); EOSINOPHILS % (AUTO) 1.3 % (0.0-4.0); HEMATOCRIT 40.7 % (36-48); HEMOGLOBIN 13.1 g/dL (12.0-16.0); LYMPHOCYTES # (AUTO) 2.5 K/uL (1.0-5.5); LYMPHOCYTES % (AUTO) 22.6 % (20.5-51.5); MEAN CORPUSCULAR HEMOGLOBIN 27 pg (27-31); MEAN CORPUSCULAR HGB CONC 32 % (32-36); MEAN CORPUSCULAR VOLUME 85 fL (79.0-98.0); MONOCYTES # (AUTO) 0.5 K/uL (0.0-1.0); MONOCYTES % (AUTO) 4.1 % (1.7-9.3); NEUTROPHILS # (AUTO) 7.8 K/uL (1.8-7.7); NEUTROPHILS % (AUTO) 70.9 % (40.0-70.0); PLATELET COUNT (AUTO) 402 K/uL (130-430); RED BLOOD CELL COUNT(AUTO) 4.77 MIL/uL (4.2-6.2); RED CELL DISTRIBUTION WIDTH 15.8 % (9.0-15.0)
[2019-10-27 19:11] LABS: ALBUMIN 3.8 g/dL (3.4-4.8); TOTAL BILIRUBIN 0.4 mg/dL (0.0-1.0)
--- NOTE | 2019-10-27 23:40 | NUR ---
Patient to ER bed 4 to gown for evaluation. Side rails up.
--- NOTE | 2019-10-27 23:41 | NUR ---
ER at bedside examining patient.
--- NOTE | 2019-10-27 23:41 | NUR ---
Pt brought in by self. Pt is awake, alert, oriented x4. Pt states that she has been having body and leg cramps associated with chronic gittlemans syndrome. Pt states that she needed to get infusion of magnesium and pain medication. Pt requested iv morphine, benadryl, and magnesium. Pt statees that she has no chest pain, nausea, vomiting, diarrhea, shortness of breath, dizziness, headache or medical complaint at this time. Pt vss, resting in ED bed.
[2019-10-27] MEDS ORDERED: NACL 0.9% 1,000 ML IV ONE (23:43)
[2019-10-27] MEDS ORDERED: DIPHENHYDRAMINE INJ 50 MG/ML VIAL IVP ONE (23:45)
[2019-10-27] MEDS ORDERED: MAGNESIUM SULFATE 4 GM in D5W 250 ML IV ONE (23:45)
[2019-10-27] MEDS ORDERED: MORPHINE 4 MG/ML INJ. SYRINGE IVP ONE (23:45)
[2019-10-28] MEDS ORDERED: MAGNESIUM SULFATE 1 GM/2 ML VIAL ONE (00:31)
--- NOTE | 2019-10-28 01:00 | NUR ---
Pt given snack as per request.
--- NOTE | 2019-10-28 02:33 | NUR ---
Pt resting in ED bed comfortably. No acute distress noted.
--- NOTE | 2019-10-28 04:05 | NUR ---
Pt resting in ED bed, no acute distress. pt tolerating fluids well.
[2019-10-28] MEDS ORDERED: DEXAMETHASONE SOD PHOSPHATE 4 MG/ML VIAL IVP ONE (04:15)
[2019-10-28] MEDS ORDERED: KETOROLAC TROMETHAMINE 30 MG VIAL IVP ONE (04:15)
--- NOTE | 2019-10-28 05:00 | NUR ---
Pt completed with IV therapy, awaiting ride home to pickup from ED.
[2019-10-28 06:00] VITALS: BP_SYST 122
--- NOTE | 2019-10-28 06:00 | NUR ---
Patient given written and verbal discharge instructions and verbalizes understanding. ER MD discussed with patient the results and treatment provided. Patient in stable condition. ID arm band removed. IV catheter removed intact and dressing applied, no active bleeding. No RX given. Patient educated on pain management and to follow up with PMD. Pain Scale 0/10. Opportunity for questions provided and answered.
== END 2019-10-28 06:00 | disposition home or self-care (01) ==
LOC: SED 18:02
DX: E83.42 Hypomagnesemia (principal); M79.604 Pain in right leg; M79.605 Pain in left leg; I10 Essential (primary) hypertension; E03.9 Hypothyroidism, unspecified; Z88.0 Allergy status to penicillin; Z91.018 Allergy to other foods; Z79.899 Other long term (current) drug therapy
CPT/HCPCS: 36415; 80053; 83735; 85025; 96365; 96366; 96375 ×2; 99284; J1100; J1200; J1885; J2270; J3475; J7030

== ENCOUNTER 2019-11-04 21:52 | Emergency (ER) | payer OTHER ==
[~2019-11-04] VITALS: Ht 162.6 cm; Wt 104.3 kg
[2019-11-04 21:52] VITALS: BP_SYST 110
--- NOTE | 2019-11-04 21:52 | NUR ---
Pt juan pablo from home to bed 7 for evaluation
--- NOTE | 2019-11-04 22:00 | NUR ---
Pt AAOx4 BIB BLS from home c/o severe bilateral leg cramping prior to arrival. Reports possible hypomagnesemia r/t Gitelman's syndrome. No other injuries/complaints per pt/noted. Will continue to monitor.
--- NOTE | 2019-11-04 22:10 | NUR ---
ER Dr. Blair at bedside examining patient.
[2019-11-04] MEDS ORDERED: DIPHENHYDRAMINE INJ 50 MG/ML VIAL IVP ONE (22:15)
[2019-11-04] MEDS ORDERED: MAGNESIUM SULFATE IN WATER 100 ML IV ONE (22:15)
[2019-11-04] MEDS ORDERED: MORPHINE 4 MG/ML INJ. SYRINGE IVP ONE (22:15)
[2019-11-04] MEDS ORDERED: MAGNESIUM SULFATE 100 ML IV ONE (22:29)
[2019-11-04 22:44] LABS: BASOPHILS # (AUTO) 0.2 K/uL (0.0-0.2); BASOPHILS % (AUTO) 1.4 % (0.0-2.0); EOSINOPHILS # (AUTO) 0.3 K/uL (0.0-0.4); EOSINOPHILS % (AUTO) 2.4 % (0.0-4.0); HEMATOCRIT 40.6 % (36-48); LYMPHOCYTES % (AUTO) 23.3 % (20.5-51.5); MEAN CORPUSCULAR HEMOGLOBIN 27 pg (27-31); MEAN CORPUSCULAR HGB CONC 32 % (32-36); MEAN CORPUSCULAR VOLUME 85 fL (79.0-98.0); MONOCYTES # (AUTO) 0.8 K/uL (0.0-1.0); MONOCYTES % (AUTO) 5.8 % (1.7-9.3); NEUTROPHILS # (AUTO) 8.8 K/uL (1.8-7.7); NEUTROPHILS % (AUTO) 67.1 % (40.0-70.0); PLATELET COUNT (AUTO) 342 K/uL (130-430); RED BLOOD CELL COUNT(AUTO) 4.77 MIL/uL (4.2-6.2); RED CELL DISTRIBUTION WIDTH 15.6 % (9.0-15.0); WHITE BLOOD COUNT (AUTO) 13.1 K/uL (4.8-10.8)
[2019-11-04 22:50] LABS: CALCIUM 8.8 mg/dL (8.4-11.0); CREATININE 1.05 mg/dL (0.55-1.30); POTASSIUM 4.2 mmol/L (3.5-5.1)
[2019-11-04 22:56] LABS: ALBUMIN 3.4 g/dL (3.4-4.8); TOTAL BILIRUBIN 0.3 mg/dL (0.0-1.0)
--- NOTE | 2019-11-04 23:19 | NUR ---
Pt c/o nausea. Dr. Blair notified. Zofran 4mg IVP verbal order.
[2019-11-04] MEDS ORDERED: ONDANSETRON HCL 4 MG/2 ML VIAL IVP ONE (23:30)
[2019-11-04] MEDS ORDERED: ONDANSETRON HCL 4 MG/2 ML VIAL ONE (23:37)
[2019-11-05] MEDS ORDERED: DIPHENHYDRAMINE INJ 50 MG/ML VIAL IVP ONE (01:00)
[2019-11-05] MEDS ORDERED: MORPHINE 2 MG/ML INJ. SYRINGE IVP ONE (01:00)
[2019-11-05 01:05] VITALS: BP_SYST 108
== END 2019-11-05 01:05 | disposition home or self-care (01) ==
LOC: SED 21:52
DX: N15.8 Other specified renal tubulo-interstitial diseases (principal); E83.42 Hypomagnesemia; F41.9 Anxiety disorder, unspecified; I10 Essential (primary) hypertension; N28.9 Disorder of kidney and ureter, unspecified; E03.9 Hypothyroidism, unspecified; Z79.899 Other long term (current) drug therapy; Z88.0 Allergy status to penicillin; Z91.018 Allergy to other foods
CPT/HCPCS: 36415; 80053; 83735; 85025; 96365; 96366; 96375; 96376; 99284; J1200 ×2; J2270 ×2; J2405; J3475

== ENCOUNTER 2019-11-06 20:02 | Emergency (ER) | payer OTHER ==
[~2019-11-06] VITALS: Ht 162.6 cm; Wt 111.1 kg
[2019-11-06 20:05] VITALS: BP_SYST 108
--- NOTE | 2019-11-06 20:05 | NUR ---
Patient triaged and placed in waiting room. VSS and patient appears in no acute distress at this time. Accompanied by self, awaiting available bed, and MD notified of need for MSE.
[2019-11-06 22:02] LABS: BASOPHILS # (AUTO) 0.2 K/uL (0.0-0.2); BASOPHILS % (AUTO) 1.3 % (0.0-2.0); EOSINOPHILS # (AUTO) 0.3 K/uL (0.0-0.4); EOSINOPHILS % (AUTO) 2.6 % (0.0-4.0); HEMATOCRIT 42.1 % (36-48); HEMOGLOBIN 13.4 g/dL (12.0-16.0); LYMPHOCYTES # (AUTO) 3.4 K/uL (1.0-5.5); LYMPHOCYTES % (AUTO) 26.6 % (20.5-51.5); MEAN CORPUSCULAR HEMOGLOBIN 27 pg (27-31); MEAN CORPUSCULAR HGB CONC 32 % (32-36); MEAN CORPUSCULAR VOLUME 85 fL (79.0-98.0); MONOCYTES # (AUTO) 0.8 K/uL (0.0-1.0); MONOCYTES % (AUTO) 6.7 % (1.7-9.3); NEUTROPHILS % (AUTO) 62.8 % (40.0-70.0); PLATELET COUNT (AUTO) 371 K/uL (130-430); RED BLOOD CELL COUNT(AUTO) 4.97 MIL/uL (4.2-6.2); WHITE BLOOD COUNT (AUTO) 12.7 K/uL (4.8-10.8)
[2019-11-06 22:07] LABS: CALCIUM 9.4 mg/dL (8.4-11.0); POTASSIUM 4.5 mmol/L (3.5-5.1)
[2019-11-06 22:16] LABS: ALBUMIN 3.6 g/dL (3.4-4.8); TOTAL BILIRUBIN 0.3 mg/dL (0.0-1.0)
[2019-11-06 23:27] VITALS: BP_SYST 109
--- NOTE | 2019-11-07 02:27 | NUR ---
Patient to ER bed 5 to gown for evaluation. Side rails up. Report given to Naima HUNG.
--- NOTE | 2019-11-07 02:29 | NUR ---
Harleen sandoval in ED - 11/07/19 at 0251 by ALEPR Patient to ER bed 5 to surya for evaluation. Side rails up. Report given to Hilary HUNG.
--- NOTE | 2019-11-07 02:30 | NUR ---
Pt presents to ER with c/o bilateral leg cramping. Pt A&Ox4. Pt states bilateral leg cramping. Pt states pain is 10/10. Breath sounds bilaterally clear with no use of accessory muscles. Will continue to monitor.
--- NOTE | 2019-11-07 02:50 | NUR ---
ER Dr. Blair at bedside examining patient.
--- NOTE | 2019-11-07 03:10 | NUR ---
ER Dr. Blair speaking with MD Mota on telephone.
--- NOTE | 2019-11-07 03:37 | NUR ---
Patient does not wish to proceed with medical care recommended by Johnnie. Patient given information related to possible complications, up to and including , which could occur as a result of leaving hospital at this time. Patient verbalizes understanding of risks involved leaving against medical advice. Patient has signed AMA form.
--- NOTE | 2019-11-07 03:37 | NUR ---
Harleen sandoval in [facility] - 11/07/19 at 0344 by ISRAEL Pt dinesh.
== END 2019-11-07 03:37 | disposition left against medical advice (07) ==
LOC: SED 20:02
DX: R25.2 Cramp and spasm (principal); N28.9 Disorder of kidney and ureter, unspecified; I10 Essential (primary) hypertension; E03.9 Hypothyroidism, unspecified; F41.9 Anxiety disorder, unspecified; E83.42 Hypomagnesemia; N15.8 Other specified renal tubulo-interstitial diseases; Z79.899 Other long term (current) drug therapy; Z88.0 Allergy status to penicillin; Z91.018 Allergy to other foods
CPT/HCPCS: 36415; 80053; 83735-TC; 85025; 99283

== ENCOUNTER 2019-11-13 17:35 | Emergency (ER) | payer OTHER ==
[~2019-11-13] VITALS: Ht 162.6 cm; Wt 111.1 kg
[2019-11-13 19:26] LABS: BASOPHILS # (AUTO) 0.2 K/uL (0.0-0.2); BASOPHILS % (AUTO) 1.3 % (0.0-2.0); EOSINOPHILS # (AUTO) 0.1 K/uL (0.0-0.4); EOSINOPHILS % (AUTO) 0.8 % (0.0-4.0); HEMATOCRIT 40.6 % (36-48); HEMOGLOBIN 13.1 g/dL (12.0-16.0); LYMPHOCYTES # (AUTO) 2.2 K/uL (1.0-5.5); LYMPHOCYTES % (AUTO) 18.3 % (20.5-51.5); MEAN CORPUSCULAR HEMOGLOBIN 28 pg (27-31); MEAN CORPUSCULAR HGB CONC 32 % (32-36); MEAN CORPUSCULAR VOLUME 85 fL (79.0-98.0); MONOCYTES # (AUTO) 0.5 K/uL (0.0-1.0); MONOCYTES % (AUTO) 4.2 % (1.7-9.3); NEUTROPHILS # (AUTO) 9.1 K/uL (1.8-7.7); NEUTROPHILS % (AUTO) 75.4 % (40.0-70.0); PLATELET COUNT (AUTO) 364 K/uL (130-430); RED BLOOD CELL COUNT(AUTO) 4.79 MIL/uL (4.2-6.2); RED CELL DISTRIBUTION WIDTH 14.7 % (9.0-15.0); WHITE BLOOD COUNT (AUTO) 12.1 K/uL (4.8-10.8)
--- NOTE | 2019-11-13 19:30 | NUR ---
Patient to ER bed 8 to gown for evaluation. Side rails up.
[2019-11-13 19:36] LABS: ANION GAP 6 (5-15); CALCIUM 9.3 mg/dL (8.4-11.0); CHLORIDE 101 mmol/L (98-107); CREATININE 0.97 mg/dL (0.55-1.30); GLUCOSE 145 mg/dL (70-99); POTASSIUM 4.2 mmol/L (3.5-5.1); SODIUM SERUM 135 mmol/L (136-145); UREA NITROGEN, BLOOD 12 mg/dL (8-21)
--- NOTE | 2019-11-13 19:37 | NUR ---
Accessed port-a-cath to R chest with sterile technique. Pt tolerated well. Will continue to monitor.
[2019-11-13 19:39] LABS: GFR AFRICAN AMERICAN 78 mL/min (>90)
[2019-11-13 19:45] LABS: ALANINE AMINOTRANSFERASE 17 U/L (12-78); ALBUMIN 3.4 g/dL (3.4-4.8); ASPARTATE AMINOTRANSFERASE 12 U/L (10-37); TOTAL BILIRUBIN 0.5 mg/dL (0.0-1.0)
--- NOTE | 2019-11-13 19:45 | NUR ---
DENNIS Cummings at bedside examining patient.
[2019-11-13] MEDS ORDERED: DIPHENHYDRAMINE INJ 50 MG/ML VIAL IVP ONE (20:00)
[2019-11-13] MEDS ORDERED: ONDANSETRON HCL 4 MG/2 ML VIAL IVP ONE (20:00)
[2019-11-13] MEDS ORDERED: MAGNESIUM SULFATE 50 ML IV ONE (20:00)
[2019-11-13] MEDS ORDERED: MORPHINE 4 MG/ML INJ. SYRINGE IVP ONE (20:00)
--- NOTE | 2019-11-13 20:00 | NUR ---
Pt BIB family to ED with Hx of Gettleman's syndrome who was brought in by EMS for evaluation of acute onset, chest pain along with constant bilateral leg spams this evening. The patient reports she commonly gets leg spasms when she gets abnormal potassium and magnesium levels. Her Internal physician and pain management is Dr. Mota. She reports taking Morphine 15 as needed and states she takes supplements at home
[2019-11-13] MEDS ORDERED: ONDANSETRON HCL 4 MG/2 ML VIAL ONE (20:10)
[2019-11-13 21:40] VITALS: BP_SYST 139
== END 2019-11-13 21:40 | disposition home or self-care (01) ==
LOC: SED 17:35
DX: G89.29 Other chronic pain (principal); R07.89 Other chest pain; M79.661 Pain in right lower leg; M79.662 Pain in left lower leg; E83.42 Hypomagnesemia; I10 Essential (primary) hypertension; N28.9 Disorder of kidney and ureter, unspecified; E03.9 Hypothyroidism, unspecified; G20 Parkinson's disease; F41.9 Anxiety disorder, unspecified; Z79.899 Other long term (current) drug therapy; Z88.0 Allergy status to penicillin; Z91.018 Allergy to other foods
CPT/HCPCS: 36415; 71045; 80053; 83735; 83880; 84484; 85025; 96365; 96375; 99284; J1200; J2270; J2405; J3475

== ENCOUNTER 2019-11-21 03:38 | Emergency (ER) | payer OTHER ==
[~2019-11-21] VITALS: Ht 162.6 cm; Wt 111.1 kg
[2019-11-21 04:09] VITALS: BP_SYST 124
[2019-11-21] MEDS ORDERED: KETOROLAC TROMETHAMINE 30 MG VIAL IVP ONE (04:15)
[2019-11-21 05:15] LABS: BASOPHILS # (AUTO) 0.2 K/uL (0.0-0.2); BASOPHILS % (AUTO) 1.4 % (0.0-2.0); EOSINOPHILS # (AUTO) 0.2 K/uL (0.0-0.4); HEMATOCRIT 40.1 % (36-48); HEMOGLOBIN 13.1 g/dL (12.0-16.0); LYMPHOCYTES # (AUTO) 3.8 K/uL (1.0-5.5); LYMPHOCYTES % (AUTO) 24.7 % (20.5-51.5); MEAN CORPUSCULAR HEMOGLOBIN 28 pg (27-31); MEAN CORPUSCULAR HGB CONC 33 % (32-36); MEAN CORPUSCULAR VOLUME 84 fL (79.0-98.0); MONOCYTES # (AUTO) 0.9 K/uL (0.0-1.0); MONOCYTES % (AUTO) 6.1 % (1.7-9.3); NEUTROPHILS # (AUTO) 10.2 K/uL (1.8-7.7); NEUTROPHILS % (AUTO) 66.8 % (40.0-70.0); PLATELET COUNT (AUTO) 424 K/uL (130-430); RED BLOOD CELL COUNT(AUTO) 4.76 MIL/uL (4.2-6.2); RED CELL DISTRIBUTION WIDTH 14.4 % (9.0-15.0); WHITE BLOOD COUNT (AUTO) 15.2 K/uL (4.8-10.8)
[2019-11-21 05:19] LABS: CALCIUM 8.6 mg/dL (8.4-11.0); CREATININE 1.15 mg/dL (0.55-1.30); POTASSIUM 3.8 mmol/L (3.5-5.1)
[2019-11-21 05:24] LABS: ALBUMIN 3.6 g/dL (3.4-4.8); TOTAL BILIRUBIN 0.5 mg/dL (0.0-1.0)
[2019-11-21] MEDS ORDERED: NACL 0.9% 1,000 ML IV ONE (05:30)
[2019-11-21] MEDS ORDERED: MORPHINE 4 MG/ML INJ. SYRINGE IVP ONE (05:45)
[2019-11-21] MEDS ORDERED: MAGNESIUM SULFATE 4 GM in D5W 250 ML IV ONE (05:45)
[2019-11-21] MEDS ORDERED: HYDROcodone/ACETAMIN 10-325 MG TAB PO ONE (05:45)
[2019-11-21] MEDS ORDERED: MAGNESIUM SULFATE 1 GM/2 ML VIAL ONE (06:11)
[2019-11-21] MEDS ORDERED: MAGNESIUM SULFATE IN WATER 100 ML IV ONE (06:17)
[2019-11-21] MEDS ORDERED: DIPHENHYDRAMINE INJ 50 MG/ML VIAL IVP ONE (07:30)
[2019-11-21 08:19] VITALS: BP_SYST 100
== END 2019-11-21 08:20 | disposition home or self-care (01) ==
LOC: SED 03:38
DX: E83.42 Hypomagnesemia (principal); I10 Essential (primary) hypertension; N28.9 Disorder of kidney and ureter, unspecified; E03.9 Hypothyroidism, unspecified; N15.8 Other specified renal tubulo-interstitial diseases; F41.9 Anxiety disorder, unspecified; Z79.899 Other long term (current) drug therapy; Z88.0 Allergy status to penicillin; Z91.018 Allergy to other foods
CPT/HCPCS: 36415; 80053; 83735; 85025; 96365; 96366; 96375; 99284; J1200; J1885; J2270; J3475; J7030

== ENCOUNTER 2019-12-04 09:40 | Emergency (ER) | payer OTHER ==
[~2019-12-04] VITALS: Ht 162.6 cm; Wt 108.9 kg
[2019-12-04 09:42] VITALS: BP_SYST 134
[2019-12-04] MEDS ORDERED: MORPHINE 4 MG/ML INJ. SYRINGE IVP ONE (09:45)
[2019-12-04] MEDS ORDERED: MAGNESIUM SULFATE 50 ML IV ONE ×3 (09:45→12:32)
[2019-12-04] MEDS ORDERED: NACL 0.9% 1,000 ML IV ONE (09:45)
[2019-12-04] MEDS ORDERED: DIPHENHYDRAMINE INJ 50 MG/ML VIAL IVP ONE ×2 (10:15→12:30)
[2019-12-04 10:29] LABS: BASOPHILS # (AUTO) 0.1 K/uL (0.0-0.2); BASOPHILS % (AUTO) 0.7 % (0.0-2.0); EOSINOPHILS # (AUTO) 0.3 K/uL (0.0-0.4); EOSINOPHILS % (AUTO) 1.5 % (0.0-4.0); HEMATOCRIT 40.6 % (36-48); HEMOGLOBIN 13.1 g/dL (12.0-16.0); LYMPHOCYTES # (AUTO) 2.8 K/uL (1.0-5.5); LYMPHOCYTES % (AUTO) 16.6 % (20.5-51.5); MEAN CORPUSCULAR HEMOGLOBIN 27 pg (27-31); MEAN CORPUSCULAR HGB CONC 32 % (32-36); MEAN CORPUSCULAR VOLUME 84 fL (79.0-98.0); MONOCYTES % (AUTO) 5.8 % (1.7-9.3); NEUTROPHILS # (AUTO) 12.8 K/uL (1.8-7.7); NEUTROPHILS % (AUTO) 75.4 % (40.0-70.0); PLATELET COUNT (AUTO) 432 K/uL (130-430); RED BLOOD CELL COUNT(AUTO) 4.82 MIL/uL (4.2-6.2); RED CELL DISTRIBUTION WIDTH 14.8 % (9.0-15.0)
[2019-12-04 10:39] LABS: CALCIUM 8.4 mg/dL (8.4-11.0); POTASSIUM 3.7 mmol/L (3.5-5.1)
[2019-12-04 10:45] LABS: ALBUMIN 3.4 g/dL (3.4-4.8); TOTAL BILIRUBIN 0.5 mg/dL (0.0-1.0)
[2019-12-04] MEDS ORDERED: DEXAMETHASONE SOD PHOSPHATE 10 MG/ML VIAL IVP ONE (11:00)
[2019-12-04] MEDS ORDERED: KETOROLAC TROMETHAMINE 30 MG VIAL IVP ONE (12:30)
[2019-12-04 14:12] VITALS: BP_SYST 128
== END 2019-12-04 14:12 | disposition home or self-care (01) ==
LOC: SED 09:40
DX: E83.42 Hypomagnesemia (principal); M25.562 Pain in left knee; M25.561 Pain in right knee; I10 Essential (primary) hypertension; N28.9 Disorder of kidney and ureter, unspecified; F41.9 Anxiety disorder, unspecified; G20 Parkinson's disease; E03.9 Hypothyroidism, unspecified; Z79.899 Other long term (current) drug therapy; Z88.0 Allergy status to penicillin; Z91.018 Allergy to other foods
CPT/HCPCS: 36415; 80053; 83735; 85025; 96365; 96366; 96375; 96376; 99284; J1100; J1200; J1885; J2270; J3475

== ENCOUNTER 2019-12-10 17:09 | Emergency (ER) | payer OTHER ==
[~2019-12-10] VITALS: Ht 162.6 cm; Wt 111.1 kg
[2019-12-10 18:00] VITALS: BP_SYST 97
--- NOTE | 2019-12-10 19:52 | NUR ---
Patient to ER bed 7 to gown for evaluation. Side rails up. Report given to LEOLA HUNG.
--- NOTE | 2019-12-10 19:56 | NUR ---
Pt presents to ER with self with c/o bilateral leg pain. Pt A&Ox4. Pt states bilateral leg pain began at 4 pm. Pt states pain is 9/10. Pt states history of gittlemans disease that causes decreased magnesium levels. Pt has bilateral clear lung breath sounds with no use of accessory muscles. Will continue to monitor.
--- NOTE | 2019-12-10 20:19 | NUR ---
# 20 gauge angiocath placed to L AC. Use of asceptic technique. Opsite placed over site. Blood return noted. Flushed with 10 cc of normal saline. No evidence of infiltration noted. Patient tolerated well.
[2019-12-10] MEDS ORDERED: MORPHINE 4 MG/ML INJ. SYRINGE IVP ONE ×2 (20:30→21:30)
[2019-12-10] MEDS ORDERED: MAGNESIUM SULFATE 50 ML IV ONE ×2 (20:30→21:30)
[2019-12-10] MEDS ORDERED: DIPHENHYDRAMINE INJ 50 MG/ML VIAL IVP ONE ×2 (20:30→21:30)
--- NOTE | 2019-12-10 20:33 | NUR ---
Lab at bedside.
[2019-12-10 20:53] LABS: BASOPHILS # (AUTO) 0.2 K/uL (0.0-0.2); BASOPHILS % (AUTO) 0.8 % (0.0-2.0); EOSINOPHILS # (AUTO) 0.1 K/uL (0.0-0.4); EOSINOPHILS % (AUTO) 0.7 % (0.0-4.0); HEMOGLOBIN 13.6 g/dL (12.0-16.0); LYMPHOCYTES # (AUTO) 4.6 K/uL (1.0-5.5); LYMPHOCYTES % (AUTO) 23.9 % (20.5-51.5); MEAN CORPUSCULAR HEMOGLOBIN 27 pg (27-31); MEAN CORPUSCULAR HGB CONC 32 % (32-36); MEAN CORPUSCULAR VOLUME 84 fL (79.0-98.0); MONOCYTES # (AUTO) 1.1 K/uL (0.0-1.0); MONOCYTES % (AUTO) 5.6 % (1.7-9.3); NEUTROPHILS # (AUTO) 13.2 K/uL (1.8-7.7); PLATELET COUNT (AUTO) 427 K/uL (130-430); RED BLOOD CELL COUNT(AUTO) 4.98 MIL/uL (4.2-6.2); WHITE BLOOD COUNT (AUTO) 19.2 K/uL (4.8-10.8)
--- NOTE | 2019-12-10 20:55 | NUR ---
PT MEDICATED PER MD ORDERS. PT TOLERATED WELL.
[2019-12-10 20:59] LABS: CALCIUM 8.8 mg/dL (8.4-11.0); CREATININE 1.37 mg/dL (0.55-1.30); POTASSIUM 3.9 mmol/L (3.5-5.1)
[2019-12-10 21:10] LABS: ALBUMIN 3.5 g/dL (3.4-4.8); TOTAL BILIRUBIN 0.4 mg/dL (0.0-1.0)
--- NOTE | 2019-12-10 21:25 | NUR ---
Pt provides urine sample. Urine sent to lab.
[2019-12-10 21:49] LABS: BILIRUBIN,URINE NEGATIVE (NEGATIVE); BLOOD, URINE NEGATIVE (NEGATIVE); CLARITY/URINE CLEAR (CLEAR); COLOR,URINE YELLOW (YELLOW); GLUCOSE,URINE NEGATIVE (NEGATIVE); KETONES,URINE NEGATIVE (NEGATIVE); NITRITE, URINE NEGATIVE (NEGATIVE); PH,URINE 6.5 (5.0-8.0); PROTEIN URINE NEGATIVE (NEGATIVE); UROBILINOGEN,URINE 0.2 (0.2-1.0)
[2019-12-10 21:58] LABS: LEUKOCYTE ESTERASE ,URINE 1+ (NEGATIVE)
[2019-12-10 22:00] LABS: BACTERIA,URINE FEW /HPF (None Seen); MUCUS,URINE None Seen /LPF (None Seen); RBC,URINE 0-3 /HPF (0-3)
--- NOTE | 2019-12-10 22:08 | NUR ---
ABHILASH Love at bedside medicating pt.
--- NOTE | 2019-12-10 22:35 | NUR ---
Pt medicated with benadryl and morphine. Pt tolerated welll.
--- NOTE | 2019-12-10 23:09 | NUR ---
MD WHITFIELD AT BEDSIDE SPEAKING WITH PT.
[2019-12-10] MEDS ORDERED: NITROFURANTOIN MONOHYD/M-CRYST 100 MG CAPSULE PO ONE ×2 (23:30→23:51)
[2019-12-10] MEDS ORDERED: MORPHINE 2 MG/ML INJ. SYRINGE IVP ONE (23:30)
[2019-12-10 23:40] VITALS: BP_SYST 124
--- NOTE | 2019-12-10 23:40 | NUR ---
Patient given written and verbal discharge instructions and verbalizes understanding. ER MD Galeana discussed with patient the results and treatment provided. Patient in stable condition. ID arm band removed. IV catheter removed intact and dressing applied, no active bleeding. Rx of Macrobid given. Patient educated on pain management and to follow up with PMD. Pain Scale 6/10. Pt medicated with 2mg Morphine. MD Galeana made aware. Per MD Galeana, okay to discharge. Opportunity for questions provided and answered. Medication side effect fact sheet provided.
== END 2019-12-10 23:40 | disposition home or self-care (01) ==
LOC: SED 17:09
DX: E83.42 Hypomagnesemia (principal); N39.0 Urinary tract infection, site not specified; R25.2 Cramp and spasm; I10 Essential (primary) hypertension; E03.9 Hypothyroidism, unspecified; Z88.0 Allergy status to penicillin; Z91.018 Allergy to other foods; Z79.899 Other long term (current) drug therapy
CPT/HCPCS: 36415; 80053; 81000; 82550; 83735; 85025; 87086; 93005; 96365; 96366; 96375; 96376; 99284; J1200; J2270 ×2; J3475

== ENCOUNTER 2019-12-17 20:31 | Emergency (ER) | payer OTHER ==
[~2019-12-17] VITALS: Ht 162.6 cm; Wt 113.4 kg
[2019-12-17 20:31] VITALS: BP_SYST 131
[2019-12-17] MEDS ORDERED: MORPHINE 4 MG/ML INJ. SYRINGE IVP ONE (21:30)
[2019-12-17] MEDS ORDERED: NACL 0.9% 1,000 ML IV ONE (21:30)
[2019-12-17] MEDS ORDERED: MAGNESIUM SULFATE 4 GM in D5W 250 ML IV ONE (21:30)
[2019-12-17 21:45] LABS: BASOPHILS # (AUTO) 0.1 K/uL (0.0-0.2); BASOPHILS % (AUTO) 0.9 % (0.0-2.0); EOSINOPHILS # (AUTO) 0.2 K/uL (0.0-0.4); EOSINOPHILS % (AUTO) 1.7 % (0.0-4.0); HEMATOCRIT 38.5 % (36-48); HEMOGLOBIN 12.6 g/dL (12.0-16.0); LYMPHOCYTES # (AUTO) 3.5 K/uL (1.0-5.5); LYMPHOCYTES % (AUTO) 28.2 % (20.5-51.5); MEAN CORPUSCULAR HEMOGLOBIN 28 pg (27-31); MEAN CORPUSCULAR HGB CONC 33 % (32-36); MEAN CORPUSCULAR VOLUME 85 fL (79.0-98.0); MONOCYTES # (AUTO) 0.8 K/uL (0.0-1.0); MONOCYTES % (AUTO) 6.7 % (1.7-9.3); NEUTROPHILS # (AUTO) 7.8 K/uL (1.8-7.7); NEUTROPHILS % (AUTO) 62.5 % (40.0-70.0); PLATELET COUNT (AUTO) 381 K/uL (130-430); RED BLOOD CELL COUNT(AUTO) 4.54 MIL/uL (4.2-6.2); RED CELL DISTRIBUTION WIDTH 15.7 % (9.0-15.0); WHITE BLOOD COUNT (AUTO) 12.4 K/uL (4.8-10.8)
[2019-12-17] MEDS ORDERED: MAGNESIUM SULFATE 1 GM/2 ML VIAL ONE (21:49)
[2019-12-17] MEDS ORDERED: DIPHENHYDRAMINE INJ 50 MG/ML VIAL IVP ONE ×2 (22:00→23:45)
[2019-12-17 22:03] LABS: CALCIUM 8.7 mg/dL (8.4-11.0); CREATININE 1.25 mg/dL (0.55-1.30); POTASSIUM 3.6 mmol/L (3.5-5.1)
[2019-12-17 22:07] LABS: ALBUMIN 3.7 g/dL (3.4-4.8); TOTAL BILIRUBIN 0.3 mg/dL (0.0-1.0)
[2019-12-17] MEDS ORDERED: DIPHENHYDRAMINE INJ 50 MG/ML VIAL ONE (22:10)
[2019-12-17 23:19] LABS: BILIRUBIN,URINE NEGATIVE (NEGATIVE); BLOOD, URINE NEGATIVE (NEGATIVE); CLARITY/URINE CLEAR (CLEAR); COLOR,URINE YELLOW (YELLOW); GLUCOSE,URINE NEGATIVE (NEGATIVE); KETONES,URINE NEGATIVE (NEGATIVE); LEUKOCYTE ESTERASE ,URINE NEGATIVE (NEGATIVE); NITRITE, URINE NEGATIVE (NEGATIVE); PH,URINE 6.5 (5.0-8.0); PROTEIN URINE NEGATIVE (NEGATIVE); UROBILINOGEN,URINE 0.2 (0.2-1.0)
[2019-12-17] MEDS ORDERED: MORPHINE 2 MG/ML INJ. SYRINGE IVP ONE (23:45)
[2019-12-17] MEDS ORDERED: ONDANSETRON HCL 4 MG/2 ML VIAL IVP ONE (23:45)
[2019-12-18] MEDS ORDERED: HEPARIN IV FLUSH 300 UNITS/3ML SYR INJ ONE (00:30)
[2019-12-18 01:06] VITALS: BP_SYST 126
== END 2019-12-18 01:06 | disposition home or self-care (01) ==
LOC: SED 20:31
DX: E83.42 Hypomagnesemia (principal); N15.8 Other specified renal tubulo-interstitial diseases; I10 Essential (primary) hypertension; N28.9 Disorder of kidney and ureter, unspecified; E03.9 Hypothyroidism, unspecified; F41.9 Anxiety disorder, unspecified; Z79.899 Other long term (current) drug therapy; Z88.0 Allergy status to penicillin; Z91.018 Allergy to other foods
CPT/HCPCS: 36415; 80053; 81003; 83735; 85025; 96365; 96375 ×2; 96376; 99284; J1200 ×2; J1642; J2270 ×2; J2405; J3475; J7030

== ENCOUNTER 2020-01-29 10:01 | Emergency (ER) | payer OTHER ==
[~2020-01-29] VITALS: Ht 165.1 cm; Wt 113.4 kg
[2020-01-29 10:40] VITALS: BP_SYST 133
--- NOTE | 2020-01-29 10:40 | NUR ---
Patient to ER bed 8 to gown for evaluation. Side rails up. Report given to ABHILASH Daniel.
--- NOTE | 2020-01-29 10:42 | NUR ---
Patient arrived in the ED c/o swelling pain on both hands and knees - took Decadron and it's gotten worse this morning. Denied any chest pain or shortness of breath. Denied any fevers, chills, nausea or vomiting. Patient is alert and oriented x4, respirations even and unlabored, speaking in full sentences. VSS, pain level 6/10. Informed of the approximate wait time. Instructed to notify ED staff for any changes in condition or worsening of symptoms. Patient verbalized understanding.
[2020-01-29] MEDS ORDERED: fentaNYL CITRATE/PF 100 MCG/2 ML AMP IVP ONE (11:30)
[2020-01-29] MEDS ORDERED: ONDANSETRON HCL 4 MG/2 ML VIAL IVP ONE ×2 (11:30→12:00)
[2020-01-29 11:33] LABS: BASOPHILS % (AUTO) 0.4 % (0.0-2.0); HEMATOCRIT 39.8 % (36-48); HEMOGLOBIN 12.8 g/dL (12.0-16.0); LYMPHOCYTES # (AUTO) 1.7 K/uL (1.0-5.5); LYMPHOCYTES % (AUTO) 13.1 % (20.5-51.5); MEAN CORPUSCULAR HEMOGLOBIN 27 pg (27-31); MEAN CORPUSCULAR HGB CONC 32 % (32-36); MEAN CORPUSCULAR VOLUME 83 fL (79.0-98.0); MONOCYTES # (AUTO) 0.3 K/uL (0.0-1.0); MONOCYTES % (AUTO) 2.7 % (1.7-9.3); NEUTROPHILS # (AUTO) 10.7 K/uL (1.8-7.7); NEUTROPHILS % (AUTO) 83.8 % (40.0-70.0); PLATELET COUNT (AUTO) 373 K/uL (130-430); RED BLOOD CELL COUNT(AUTO) 4.79 MIL/uL (4.2-6.2); WHITE BLOOD COUNT (AUTO) 12.7 K/uL (4.8-10.8)
--- NOTE | 2020-01-29 11:36 | NUR ---
ER Dr. Chris at bedside examining patient.
[2020-01-29 11:50] LABS: CALCIUM 9.1 mg/dL (8.4-11.0); CREATININE 1.01 mg/dL (0.55-1.30); POTASSIUM 3.8 mmol/L (3.5-5.1)
[2020-01-29 11:55] LABS: ALBUMIN 3.7 g/dL (3.4-4.8); TOTAL BILIRUBIN 0.5 mg/dL (0.0-1.0)
[2020-01-29] MEDS ORDERED: MAGNESIUM SULFATE 50 ML IV ONE (12:00)
[2020-01-29] MEDS ORDERED: MORPHINE 4 MG/ML INJ. SYRINGE IVP ONE (12:00)
--- NOTE | 2020-01-29 12:17 | NUR ---
Administered Benadryl, Morphine IVP and Magnesium Sulfate IV as ordered by Dr. Chris. Patient tolerated the medications well. See eMAR for details.
[2020-01-29] MEDS ORDERED: DIPHENHYDRAMINE INJ 50 MG/ML VIAL IVP ONE (12:45)
--- NOTE | 2020-01-29 12:56 | NUR ---
Accessed maday-cath using aseptic technique. Patient tolerated the procedure well.
[2020-01-29] MEDS ORDERED: DIPHENHYDRAMINE INJ 50 MG/ML VIAL ONE (12:58)
--- NOTE | 2020-01-29 13:40 | NUR ---
Administered Solu-medrol IVP as ordered by Dr. Chris. Patient tolerated the medications well. See eMAR for details.
[2020-01-29] MEDS ORDERED: methylPREDNISolone SOD SUCC/PF 62.5 MG/ML VIAL IVP ONE (13:45)
[2020-01-29] MEDS ORDERED: methylPREDNISolone SOD SUCC/PF 62.5 MG/ML VIAL ONE (14:03)
--- NOTE | 2020-01-29 14:13 | NUR ---
Patient given written and verbal discharge instructions and verbalizes understanding. ER MD discussed with patient the results and treatment provided. Patient in stable condition. ID arm band removed. Alas needle removed intact and dressing applied, no active bleeding. No Rx given. Patient educated on pain management and to follow up with PMD. Pain Scale 0/10. Opportunity for questions provided and answered. Medication side effect fact sheet provided.
[2020-01-29 14:16] VITALS: BP_SYST 133
== END 2020-01-29 14:13 | disposition home or self-care (01) ==
LOC: SED 10:01
DX: R60.0 Localized edema (principal); G89.29 Other chronic pain; N15.8 Other specified renal tubulo-interstitial diseases; I10 Essential (primary) hypertension; E03.9 Hypothyroidism, unspecified; Z79.899 Other long term (current) drug therapy; Z88.0 Allergy status to penicillin; Z91.018 Allergy to other foods
CPT/HCPCS: 36415; 80053; 83690; 83735; 85025; 96365; 96366; 96375; 99284; J1200; J2270; J2405; J2930; J3010; J3475

== ENCOUNTER 2020-02-06 19:56 | Emergency (ER) | payer OTHER ==
[~2020-02-06] VITALS: Ht 165.1 cm; Wt 113.4 kg
[2020-02-06 21:42] VITALS: BP_SYST 122
[2020-02-06 22:18] LABS: BASOPHILS # (AUTO) 0.1 K/uL (0.0-0.2); BASOPHILS % (AUTO) 0.8 % (0.0-2.0); EOSINOPHILS # (AUTO) 0.2 K/uL (0.0-0.4); EOSINOPHILS % (AUTO) 1.3 % (0.0-4.0); HEMATOCRIT 39.1 % (36-48); HEMOGLOBIN 12.6 g/dL (12.0-16.0); LYMPHOCYTES # (AUTO) 2.7 K/uL (1.0-5.5); LYMPHOCYTES % (AUTO) 20.5 % (20.5-51.5); MEAN CORPUSCULAR HEMOGLOBIN 27 pg (27-31); MEAN CORPUSCULAR HGB CONC 32 % (32-36); MEAN CORPUSCULAR VOLUME 84 fL (79.0-98.0); MONOCYTES # (AUTO) 0.9 K/uL (0.0-1.0); MONOCYTES % (AUTO) 6.4 % (1.7-9.3); NEUTROPHILS # (AUTO) 9.5 K/uL (1.8-7.7); PLATELET COUNT (AUTO) 369 K/uL (130-430); RED BLOOD CELL COUNT(AUTO) 4.65 MIL/uL (4.2-6.2); RED CELL DISTRIBUTION WIDTH 16.2 % (9.0-15.0); WHITE BLOOD COUNT (AUTO) 13.4 K/uL (4.8-10.8)
[2020-02-06 22:26] LABS: CALCIUM 8.8 mg/dL (8.4-11.0); CREATININE 1.3 mg/dL (0.55-1.30); POTASSIUM 3.8 mmol/L (3.5-5.1)
[2020-02-06 22:32] LABS: ALBUMIN 3.7 g/dL (3.4-4.8); TOTAL BILIRUBIN 0.3 mg/dL (0.0-1.0)
--- NOTE | 2020-02-07 00:15 | NUR ---
Per dairy clerk, pt LWBS.
== END 2020-02-07 00:15 | disposition left against medical advice (07) ==
LOC: SED 19:56
DX: M79.18 Myalgia, other site (principal); Z53.21 Procedure and treatment not carried out due to patient leaving prior to being seen by health care provider
CPT/HCPCS: 36415; 80053; 83735-TC; 85025

== ENCOUNTER 2020-02-25 22:06 | Emergency (ER) | payer OTHER ==
[~2020-02-25] VITALS: Ht 165.1 cm; Wt 113.4 kg
[2020-02-25 22:30] VITALS: BP_SYST 11; BP_SYST 111
[2020-02-25] MEDS ORDERED: DIPHENHYDRAMINE INJ 50 MG/ML VIAL IVP ONE (22:30)
[2020-02-25] MEDS ORDERED: MAGNESIUM SULFATE IN WATER 100 ML IV ONE (22:30)
[2020-02-25] MEDS ORDERED: MORPHINE 4 MG/ML INJ. SYRINGE IVP ONE (22:30)
[2020-02-25] MEDS ORDERED: MAGNESIUM SULFATE 100 ML IV ONE (23:22)
[2020-02-25 23:23] LABS: BASOPHILS # (AUTO) 0.2 K/uL (0.0-0.2); BASOPHILS % (AUTO) 1.5 % (0.0-2.0); EOSINOPHILS # (AUTO) 0.2 K/uL (0.0-0.4); EOSINOPHILS % (AUTO) 1.8 % (0.0-4.0); HEMATOCRIT 37.4 % (36-48); HEMOGLOBIN 12.2 g/dL (12.0-16.0); LYMPHOCYTES # (AUTO) 3.1 K/uL (1.0-5.5); LYMPHOCYTES % (AUTO) 28.6 % (20.5-51.5); MEAN CORPUSCULAR HEMOGLOBIN 28 pg (27-31); MEAN CORPUSCULAR HGB CONC 33 % (32-36); MEAN CORPUSCULAR VOLUME 85 fL (79.0-98.0); MONOCYTES # (AUTO) 0.5 K/uL (0.0-1.0); NEUTROPHILS # (AUTO) 6.9 K/uL (1.8-7.7); NEUTROPHILS % (AUTO) 63.1 % (40.0-70.0); PLATELET COUNT (AUTO) 398 K/uL (130-430); RED BLOOD CELL COUNT(AUTO) 4.43 MIL/uL (4.2-6.2); RED CELL DISTRIBUTION WIDTH 15.6 % (9.0-15.0); WHITE BLOOD COUNT (AUTO) 10.9 K/uL (4.8-10.8)
[2020-02-25 23:30] LABS: CALCIUM 8.7 mg/dL (8.4-11.0); CREATININE 1.25 mg/dL (0.55-1.30); POTASSIUM 3.9 mmol/L (3.5-5.1)
[2020-02-25 23:36] LABS: ALBUMIN 3.4 g/dL (3.4-4.8); TOTAL BILIRUBIN 0.3 mg/dL (0.0-1.0)
--- NOTE | 2020-02-26 | NUR ---
Patient to ER bed 5 to gown for evaluation. Side rails up.
--- NOTE | 2020-02-26 00:05 | NUR ---
Dr. Galeana bedside for Pt eval
--- NOTE | 2020-02-26 00:07 | NUR ---
Pt BIB family to ED C/O bilat leg pain 05/17, hx of Gitelman syndrome. No other injuries and or complaints noted VSS no s/s of acute distress Resting on gurney rails up
[2020-02-26] MEDS ORDERED: DIPHENHYDRAMINE INJ 50 MG/ML VIAL IVP ONE (00:45)
[2020-02-26] MEDS ORDERED: MORPHINE 4 MG/ML INJ. SYRINGE IVP ONE (00:45)
[2020-02-26 02:08] VITALS: BP_SYST 115
--- NOTE | 2020-02-26 02:08 | NUR ---
Patient given written and verbal discharge instructions and verbalizes understanding. ER MD discussed with patient the results and treatment provided. Patient in stable condition. ID arm band removed. Alas needle removed fr port a cath, intact and dressing applied, no active bleeding. No Rx given. Patient educated on pain management and to follow up with PMD. Pain Scale 0/10. Opportunity for questions provided and answered.
== END 2020-02-26 02:08 | disposition home or self-care (01) ==
LOC: SED 22:06
DX: E83.42 Hypomagnesemia (principal); I10 Essential (primary) hypertension; N28.9 Disorder of kidney and ureter, unspecified; E03.9 Hypothyroidism, unspecified; N15.8 Other specified renal tubulo-interstitial diseases; F41.9 Anxiety disorder, unspecified; Z79.899 Other long term (current) drug therapy; Z88.0 Allergy status to penicillin; Z91.018 Allergy to other foods
CPT/HCPCS: 36415; 80053; 83735; 85025; 96365; 96366; 96375; 96376; 99284; J1200 ×2; J2270 ×2; J3475 ×2

== ENCOUNTER 2020-03-15 19:18 | Emergency (ER) | payer OTHER ==
[~2020-03-15] VITALS: Ht 165.1 cm; Wt 113.4 kg
[2020-03-15 19:18] VITALS: BP_SYST 108
--- NOTE | 2020-03-15 19:20 | NUR ---
RECEIVED AND IN ROOM, PT HERE FOR VOMITING, DRY HEAVING UPON ARRIVAL C/O JOINT PAIN 04/16. HX OF GOUT
--- NOTE | 2020-03-15 19:40 | NUR ---
DR PERAZA IN TO ASSESS, PT CALM, ALERT, RESP UNLABORED
[2020-03-15 20:03] LABS: BASOPHILS # (AUTO) 0.2 K/uL (0.0-0.2); BASOPHILS % (AUTO) 1.6 % (0.0-2.0); EOSINOPHILS # (AUTO) 0.1 K/uL (0.0-0.4); EOSINOPHILS % (AUTO) 0.9 % (0.0-4.0); HEMATOCRIT 41.5 % (36-48); HEMOGLOBIN 13.4 g/dL (12.0-16.0); LYMPHOCYTES # (AUTO) 3.4 K/uL (1.0-5.5); MEAN CORPUSCULAR HEMOGLOBIN 27 pg (27-31); MEAN CORPUSCULAR HGB CONC 32 % (32-36); MEAN CORPUSCULAR VOLUME 83 fL (79.0-98.0); MONOCYTES % (AUTO) 6.4 % (1.7-9.3); NEUTROPHILS # (AUTO) 10.5 K/uL (1.8-7.7); NEUTROPHILS % (AUTO) 69.1 % (40.0-70.0); PLATELET COUNT (AUTO) 368 K/uL (130-430); RED CELL DISTRIBUTION WIDTH 15.9 % (9.0-15.0); WHITE BLOOD COUNT (AUTO) 15.3 K/uL (4.8-10.8)
[2020-03-15] MEDS ORDERED: NACL 0.9% 1,000 ML IV ONE (20:04)
[2020-03-15 20:15] LABS: CALCIUM 9.2 mg/dL (8.4-11.0); CREATININE 1.19 mg/dL (0.55-1.30); POTASSIUM 3.4 mmol/L (3.5-5.1)
[2020-03-15] MEDS ORDERED: DIPHENHYDRAMINE INJ 50 MG/ML VIAL IVP ONE ×2 (20:15→21:15)
[2020-03-15] MEDS ORDERED: DEXAMETHASONE SOD PHOSPHATE 4 MG/ML VIAL IVP ONE (20:15)
[2020-03-15] MEDS ORDERED: MORPHINE 4 MG/ML INJ. SYRINGE IVP ONE (20:15)
[2020-03-15] MEDS ORDERED: MAGNESIUM SULFATE 50 ML IV ONE (20:15)
--- NOTE | 2020-03-15 20:15 | NUR ---
ISMAEL TO ASSUME CARE, PT CALM, ALERT, RESP UNLABORED, CLEAR MENTATION AND SPEECH, HERE FOR VOMITING, SHE HAS LONG HX OF KIDNEY DISORDER AND ELECTROLYTE ABNORMALITIES IV ACCESS TO RT PORTACATH
[2020-03-15 20:19] LABS: ALBUMIN 3.8 g/dL (3.4-4.8); TOTAL BILIRUBIN 0.4 mg/dL (0.0-1.0)
[2020-03-15] MEDS ORDERED: MORPHINE 2 MG/ML INJ. SYRINGE IVP ONE (21:15)
[2020-03-15 21:52] VITALS: BP_SYST 155
--- NOTE | 2020-03-15 22:09 | NUR ---
Patient given written and verbal discharge instructions and verbalizes understanding. ER MD discussed with patient the results and treatment provided. Patient in stable condition. ID arm band removed. IV catheter removed intact and dressing applied, no active bleeding. FROM PORTACATH . Patient educated on pain management and to follow up with PMD. Pain Scale 2/10 Opportunity for questions provided and answered. Medication side effect fact sheet provided.
== END 2020-03-15 21:52 | disposition home or self-care (01) ==
LOC: SED 19:18
DX: N15.8 Other specified renal tubulo-interstitial diseases (principal); R11.2 Nausea with vomiting, unspecified; M10.9 Gout, unspecified; I10 Essential (primary) hypertension; N28.9 Disorder of kidney and ureter, unspecified; E83.42 Hypomagnesemia; E03.9 Hypothyroidism, unspecified; F41.9 Anxiety disorder, unspecified; Z79.899 Other long term (current) drug therapy; Z88.0 Allergy status to penicillin; Z91.018 Allergy to other foods
CPT/HCPCS: 36415; 80053; 83735; 85025; 96361; 96374; 96375; 96376; 99284; J1100; J1200; J2270 ×2; J3475; J7030

== ENCOUNTER 2020-06-30 16:07 | Inpatient (IN) | payer OTHER, SELFPAY ==
[~2020-06-30] VITALS: Ht 162.6 cm; Wt 115.2 kg
--- NOTE | 2020-06-30 16:20 | NUR ---
Patient to ER bed 6 to gown for evaluation. Side rails up. Report given to María HUNG.
--- NOTE | 2020-06-30 16:25 | NUR ---
Patient BIBA in the ED c/o nausea, vomiting and abdominal pain for the last 2 days. Denied any chest pain or shortness of breath. Denied any fevers and chills. Patient is alert and oriented x4, respirations even and unlabored, speaking in full sentences. Patient is crying inconsolably. VSS, pain level 10/10. Informed of the approximate wait time. Instructed to notify ED staff for any changes in condition or worsening of symptoms while waiting to be seen by an ED provider. Patient verbalized understanding.
--- NOTE | 2020-06-30 16:30 | NUR ---
ER Dr. Antunez at bedside examining patient.
--- NOTE | 2020-06-30 16:41 | NUR ---
RT at bedside administering inhalation treatment as ordered by Dr. Antunez. Patient tolerated the medication well.
[2020-06-30] MEDS ORDERED: NACL 0.9% 1,000 ML IV ONE (16:45)
[2020-06-30] MEDS ORDERED: ALBUTEROL SULFATE 0.083% 2.5 MG/3 ML VIAL.NEB INH ONE (16:45)
[2020-06-30] MEDS ORDERED: MORPHINE 4 MG/ML INJ. SYRINGE IVP ONE (16:45)
[2020-06-30] MEDS ORDERED: DIPHENHYDRAMINE INJ 50 MG/ML VIAL IVP ONE (16:45)
--- NOTE | 2020-06-30 16:51 | NUR ---
X-ray done at bedside as ordered by Dr. Antunez. Patient tolerated the procedure well.
--- NOTE | 2020-06-30 17:16 | NUR ---
diagnostic radiologic technologist at bedside collecting blood specimen as ordered by Dr. Antunez. Patient tolerated the procedure well.
[2020-06-30 17:43] LABS: BASOPHILS # (AUTO) 0.1 K/uL (0.0-0.2); BASOPHILS % (AUTO) 1.1 % (0.0-2.0); EOSINOPHILS # (AUTO) 0.1 K/uL (0.0-0.4); EOSINOPHILS % (AUTO) 1.8 % (0.0-4.0); HEMATOCRIT 40.8 % (36-48); HEMOGLOBIN 12.9 g/dL (12.0-16.0); LYMPHOCYTES # (AUTO) 2.2 K/uL (1.0-5.5); LYMPHOCYTES % (AUTO) 26.2 % (20.5-51.5); MEAN CORPUSCULAR HEMOGLOBIN 26 pg (27-31); MEAN CORPUSCULAR HGB CONC 32 % (32-36); MEAN CORPUSCULAR VOLUME 82 fL (79.0-98.0); MONOCYTES # (AUTO) 0.5 K/uL (0.0-1.0); MONOCYTES % (AUTO) 5.8 % (1.7-9.3); NEUTROPHILS # (AUTO) 5.4 K/uL (1.8-7.7); NEUTROPHILS % (AUTO) 65.1 % (40.0-70.0); PLATELET COUNT (AUTO) 401 K/uL (130-430); RED BLOOD CELL COUNT(AUTO) 5.01 MIL/uL (4.2-6.2); RED CELL DISTRIBUTION WIDTH 15.4 % (9.0-15.0); WHITE BLOOD COUNT (AUTO) 8.3 K/uL (4.8-10.8)
[2020-06-30 17:51] LABS: CALCIUM 9.3 mg/dL (8.4-11.0); CREATININE 0.93 mg/dL (0.55-1.30); POTASSIUM 3.8 mmol/L (3.5-5.1)
[2020-06-30 17:55] LABS: INR 1.1 (0.8-1.2); PROTHROMBIN TIME 10.8 SECS (9.5-12.5)
[2020-06-30 17:56] LABS: ALBUMIN 3.6 g/dL (3.4-4.8); TOTAL BILIRUBIN 0.6 mg/dL (0.0-1.0)
[2020-06-30] MEDS ORDERED: ONDANSETRON HCL 4 MG/2 ML VIAL IVP ONE ×2 (18:15)
[2020-06-30] MEDS ORDERED: METOCLOPRAMIDE HCL 10 MG/2 ML VIAL IVP ONE (18:15)
[2020-06-30] MEDS ORDERED: MAGNESIUM SULFATE 50 ML IV ONE (18:15)
--- NOTE | 2020-06-30 18:22 | NUR ---
Received admittting orders from Dr. Mota. Spoke with Tricia, bed assignment after 1730.
--- NOTE | 2020-06-30 18:35 | NUR ---
Administered Zofran IVP and Magnesium IV as ordered by Dr. Antunez. Patient tolerated the medications well. See eMAR for details.
[2020-06-30 18:59] LABS: BILIRUBIN,URINE NEGATIVE (NEGATIVE); BLOOD, URINE NEGATIVE (NEGATIVE); CLARITY/URINE CLEAR (CLEAR); COLOR,URINE YELLOW (YELLOW); GLUCOSE,URINE NEGATIVE (NEGATIVE); KETONES,URINE NEGATIVE (NEGATIVE); LEUKOCYTE ESTERASE ,URINE NEGATIVE (NEGATIVE); NITRITE, URINE NEGATIVE (NEGATIVE); PH,URINE 6.5 (5.0-8.0); PROTEIN URINE NEGATIVE (NEGATIVE); UROBILINOGEN,URINE 0.2 (0.2-1.0)
[2020-06-30] MEDS ORDERED: METOCLOPRAMIDE HCL 10 MG/2 ML VIAL IVP PRN (19:15)
[2020-06-30] MEDS ORDERED: ONDANSETRON HCL 4 MG/2 ML VIAL IM PRN (19:15)
--- NOTE | 2020-06-30 19:15 | NUR ---
Report given and care transferred to ABHILASH Agee.
--- NOTE | 2020-06-30 19:32 | NUR ---
Patient had abdominal pain, pain rate 10/10, vss.
--- NOTE | 2020-06-30 19:58 | NUR ---
Jorje, limehouse worker at bedside.
--- NOTE | 2020-06-30 20:16 | NUR ---
Patient will be admitted to care of . Admitted to M/S unit. Will go to room 126B. Belongings list completed. Complete and up to date summary report printed. SBAR report to be given at bedside with opportunity for questions.
--- NOTE | 2020-06-30 20:21 | NUR ---
Called Dr. Mota 3 times, no answers the phone call , Given report to ABHILASH Osei
--- NOTE | 2020-06-30 20:44 | NUR ---
ADMIT NOTE Received pt from ER to the floor with a diagnosis of INTRACTABLE VOMITING. Admission process initiated. patient oriented to pain management, safety and call light-teach back done.
[2020-06-30] MEDS: LR 1,000 ML IV SCH (21:00)
[2020-06-30] MEDS ORDERED: MORPHINE SULFATE 30 MG Immediate Release TABLET PO PRN (21:00)
[2020-06-30] MEDS ORDERED: MAGNESIUM PO SCH (21:00)
[2020-06-30] MEDS ORDERED: COLCHICINE 0.6 MG TABLET PO PRN (21:00)
[2020-06-30] MEDS ORDERED: IPRATROPIUM/ALBUTEROL SULFATE 120 PUFFS/4 GM INH INH PRN (21:00)
[2020-06-30] MEDS ORDERED: FAMOTIDINE PF 20 MG/2 ML VIAL IVP ONE (21:15)
[2020-06-30 21:17] VITALS: BP_SYST 114
[2020-06-30] MEDS: aMILoride HCL 5 MG TABLET PO SCH (22:00)
[2020-06-30 22:25] VITALS: BP_SYST 114
[2020-06-30] MEDS: CHOLECALCIFEROL (VITAMIN D-3) 400 UNIT TABLET PO SCH (22:25)
[2020-06-30] MEDS: POTASSIUM CHLORIDE 10 MEQ TAB.PRT.SR PO SCH (22:25)
[2020-06-30] MEDS: CYCLOBENZAPRINE HCL 10 MG TABLET (FLEXERIL) PO SCH (22:25)
[2020-06-30] MEDS: ONDANSETRON HCL 4 MG/2 ML VIAL IVP PRN (22:33)
[2020-06-30] MEDS: DIPHENHYDRAMINE INJ 50 MG/ML VIAL IVP PRN (22:34)
[2020-06-30] MEDS: MORPHINE 4 MG/ML INJ. SYRINGE IVP PRN (22:35)
[2020-06-30 23:45] VITALS: BP_SYST 116
[2020-07-01] MEDS ORDERED: METOCLOPRAMIDE HCL 10 MG/2 ML VIAL IVP SCH
[2020-07-01] MEDS ORDERED: IPRATROPIUM/ALBUTEROL SULFATE 3 ML AMPUL.NEB (DUONEB) INH SCH (01:00)
[2020-07-01] MEDS: ONDANSETRON HCL 4 MG/2 ML VIAL IVP PRN ×6 (02:42→22:58)
[2020-07-01] MEDS: DIPHENHYDRAMINE INJ 50 MG/ML VIAL IVP PRN ×6 (02:43→22:59)
[2020-07-01] MEDS: MORPHINE 4 MG/ML INJ. SYRINGE IVP PRN ×6 (02:45→23:00)
[2020-07-01] MEDS: LR 1,000 ML IV SCH ×4 (02:48→22:55)
[2020-07-01 03:56] VITALS: BP_SYST 103
[2020-07-01 07:14] LABS: CALCIUM 8.7 mg/dL (8.4-11.0); CREATININE 0.9 mg/dL (0.55-1.30); POTASSIUM 4.1 mmol/L (3.5-5.1)
[2020-07-01 08:11] LABS: BASOPHILS # (AUTO) 0.1 K/uL (0.0-0.2); BASOPHILS % (AUTO) 0.9 % (0.0-2.0); EOSINOPHILS # (AUTO) 0.3 K/uL (0.0-0.4); EOSINOPHILS % (AUTO) 3.1 % (0.0-4.0); HEMATOCRIT 34.4 % (36-48); HEMOGLOBIN 11.1 g/dL (12.0-16.0); LYMPHOCYTES # (AUTO) 2.8 K/uL (1.0-5.5); LYMPHOCYTES % (AUTO) 33.7 % (20.5-51.5); MEAN CORPUSCULAR HEMOGLOBIN 26 pg (27-31); MEAN CORPUSCULAR HGB CONC 32 % (32-36); MEAN CORPUSCULAR VOLUME 81 fL (79.0-98.0); MONOCYTES # (AUTO) 0.6 K/uL (0.0-1.0); MONOCYTES % (AUTO) 7.9 % (1.7-9.3); NEUTROPHILS # (AUTO) 4.5 K/uL (1.8-7.7); NEUTROPHILS % (AUTO) 54.4 % (40.0-70.0); PLATELET COUNT (AUTO) 337 K/uL (130-430); RED BLOOD CELL COUNT(AUTO) 4.24 MIL/uL (4.2-6.2); RED CELL DISTRIBUTION WIDTH 15.2 % (9.0-15.0); WHITE BLOOD COUNT (AUTO) 8.2 K/uL (4.8-10.8)
[2020-07-01 08:15] LABS: C-REACTIVE PROTEIN QUANT 1.6 mg/dL (0-0.5)
[2020-07-01 08:30] VITALS: BP_SYST 102
[2020-07-01] MEDS ORDERED: PANTOPRAZOLE SODIUM 40 MG TAB PO SCH (09:00)
--- NOTE | 2020-07-01 09:00 | NUR ---
OPENING NOTES, RECEIVED PT IN BED, PT IS AAOX4, C/O OF 7/10 PAIN, PT IS AWARE THAT PAIN MED IS DUE AT 1045, PT HAS NO SOB, NO FEVER. PT HAS NO C/O N/V/D AT THIS TIME. SAFETY PRECAUTION IN PLACE, CALL LIGHT IN REACH. BED IN LOW POSITION, EDUCATED PT ON THE USE OF CALL LIGHT , TV AND BED CONTROLS. ENCOURAGED PT TO CALL FOR ASSIST AND PAIN MEDS OR ANY CONCERNS. WILL CONT TO MONITOR.
[2020-07-01] MEDS: POTASSIUM CHLORIDE 10 MEQ TAB.PRT.SR PO SCH ×2 (09:52→13:01)
[2020-07-01] MEDS: SPIRONOLACTONE 50 MG TABLET (ALDACTONE) PO SCH (09:52)
[2020-07-01] MEDS: aMILoride HCL 5 MG TABLET PO SCH ×2 (09:52→21:45)
[2020-07-01] MEDS: MAGNESIUM CHLORIDE 64 MG TABLET.DR PO SCH ×4 (09:52→21:45)
[2020-07-01] MEDS: DULoxetine HCL 30 MG CAPSULE.DR (CYMBALTA) PO SCH (09:52)
[2020-07-01] MEDS: CHOLECALCIFEROL (VITAMIN D-3) 400 UNIT TABLET PO SCH (09:52)
[2020-07-01] MEDS: FAMOTIDINE PF 20 MG/2 ML VIAL IVP SCH ×2 (09:52→21:40)
[2020-07-01] MEDS: CYCLOBENZAPRINE HCL 10 MG TABLET (FLEXERIL) PO SCH ×2 (09:53→21:45)
[2020-07-01 10:17] LABS: ERYTHROCYTE SEDIMENTATION RATE 43 MM/HR (0-20)
[2020-07-01 11:00] VITALS: BP_SYST 121
[2020-07-01] MEDS ORDERED: ALBUTEROL MDI INHALATION 8 GM INH INH PRN (13:45)
[2020-07-01] MEDS ORDERED: MAGNESIUM SULFATE 50 ML IV ONE (15:00)
--- NOTE | 2020-07-01 15:20 | NUR ---
DR HOLLY WAS HERE AND SEEN PT.
[2020-07-01 16:14] VITALS: BP_SYST 125
[2020-07-01] MEDS: POTASSIUM CHLORIDE 20 MEQ TAB.PRT.SR PO SCH ×2 (16:34→21:45)
--- NOTE | 2020-07-01 18:25 | NUR ---
CLOSING PT HAS BEEN STABLE THE WHOLE SHIFT, PT HAD X1 DIARRHEA AND X1 EMESIS TODAY, ALSO C/O OF NAUSEA, PT GIVEN BENADRYL, MORPHINE AND ZOFRAN EVERY [address] HOLLY SAW PATIENT. PT ALSO GIVEN TYLENOL FOR HEADACHE.
[2020-07-01 20:01] VITALS: BP_SYST 120
[2020-07-01] MEDS: CHOLECALCIFEROL (VITAMIN D3) 2,000 UNIT TABLET PO SCH (21:45)
[2020-07-01 23:00] VITALS: BP_SYST 136
[2020-07-02] MEDS: ONDANSETRON HCL 4 MG/2 ML VIAL IVP PRN ×5 (02:58→22:07)
[2020-07-02] MEDS: DIPHENHYDRAMINE INJ 50 MG/ML VIAL IVP PRN ×5 (02:59→22:06)
[2020-07-02 03:00] VITALS: BP_SYST 122
[2020-07-02] MEDS: MORPHINE 4 MG/ML INJ. SYRINGE IVP PRN ×5 (03:00→22:06)
[2020-07-02] MEDS: LR 1,000 ML IV SCH ×3 (06:40→20:15)
--- NOTE | 2020-07-02 07:05 | NUR ---
Nutrition Update Devin Scale 18 noted. Pt admitted for Intractable vomiting Diet: Clear liquid BMI: 43.6 kg/m2 RD to follow per nutrition care standards.
[2020-07-02 07:08] LABS: BASOPHILS # (AUTO) 0.1 K/uL (0.0-0.2); BASOPHILS % (AUTO) 1.5 % (0.0-2.0); EOSINOPHILS # (AUTO) 0.3 K/uL (0.0-0.4); EOSINOPHILS % (AUTO) 4.7 % (0.0-4.0); HEMATOCRIT 33.4 % (36-48); HEMOGLOBIN 10.8 g/dL (12.0-16.0); LYMPHOCYTES # (AUTO) 2.4 K/uL (1.0-5.5); LYMPHOCYTES % (AUTO) 35.2 % (20.5-51.5); MEAN CORPUSCULAR HEMOGLOBIN 26 pg (27-31); MEAN CORPUSCULAR HGB CONC 32 % (32-36); MEAN CORPUSCULAR VOLUME 82 fL (79.0-98.0); MONOCYTES # (AUTO) 0.5 K/uL (0.0-1.0); MONOCYTES % (AUTO) 7.3 % (1.7-9.3); NEUTROPHILS # (AUTO) 3.5 K/uL (1.8-7.7); NEUTROPHILS % (AUTO) 51.3 % (40.0-70.0); PLATELET COUNT (AUTO) 331 K/uL (130-430); RED BLOOD CELL COUNT(AUTO) 4.09 MIL/uL (4.2-6.2); RED CELL DISTRIBUTION WIDTH 15.2 % (9.0-15.0); WHITE BLOOD COUNT (AUTO) 6.8 K/uL (4.8-10.8)
--- NOTE | 2020-07-02 07:30 | NUR ---
OPENING NOTES PT RESTING IN BED, CHEST RISE AND FALL NOTED. NONLABORED BREATHING NOTED ON ROOM AIR. NO ACUTE DISTRESS NOTED. IV LINE INTACT AND PATENT, NO SIGNS OF INFILTRATION NOTED, FLUIDS RUNNING ORDERED. SCD'S ON. ALL NEEDS MET. CALL LIGHT IN REACH. FALL AND ASPIRATION PRECAUTIONS IN PLACE. CONTINUE TO MONITOR.
[2020-07-02 09:00] VITALS: BP_SYST 109
[2020-07-02 09:21] LABS: CALCIUM 8.7 mg/dL (8.4-11.0); CREATININE 1.07 mg/dL (0.55-1.30); POTASSIUM 4.7 mmol/L (3.5-5.1); TOTAL BILIRUBIN 0.4 mg/dL (0.0-1.0)
[2020-07-02] MEDS: FAMOTIDINE PF 20 MG/2 ML VIAL IVP SCH ×2 (09:47→20:15)
[2020-07-02] MEDS: MAGNESIUM CHLORIDE 64 MG TABLET.DR PO SCH ×4 (09:47→20:15)
[2020-07-02] MEDS: POTASSIUM CHLORIDE 20 MEQ TAB.PRT.SR PO SCH ×4 (09:47→20:15)
[2020-07-02] MEDS: aMILoride HCL 5 MG TABLET PO SCH ×2 (09:47→20:58)
[2020-07-02] MEDS: DULoxetine HCL 30 MG CAPSULE.DR (CYMBALTA) PO SCH (09:47)
[2020-07-02] MEDS: SPIRONOLACTONE 50 MG TABLET (ALDACTONE) PO SCH (09:47)
[2020-07-02] MEDS: ACETAMINOPHEN 500 MG TABLET PO PRN (09:47)
[2020-07-02] MEDS: CYCLOBENZAPRINE HCL 10 MG TABLET (FLEXERIL) PO SCH ×2 (09:47→20:15)
[2020-07-02] MEDS: LORazepam 1 MG TABLET PO PRN (09:47)
[2020-07-02] MEDS: CHOLECALCIFEROL (VITAMIN D3) 2,000 UNIT TABLET PO SCH ×2 (09:47→20:15)
--- NOTE | 2020-07-02 09:47 | NUR ---
ROUTINE MEDS AND SEEN BY DR. HOLLY AT BEDSIDE PT C/O PAIN AND FEELING ANXIOUS, PRN PAIN AND ANXIETY MEDS ADMINISTERED ORDERED PER MD, ROUTINE MEDS ADMINISTERED ORDERED PER MD, EDUCATION GIVEN, TOLERATED WELL. CONTINUE TO MONITOR.
[2020-07-02 10:41] LABS: TOTAL IRON BIND. CAPACITY 340 ug/dL (250-450)
--- NOTE | 2020-07-02 11:52 | NUR ---
ROUNDS PT RESTING IN BED, CHEST RISE AND FALL NOTED. NO ACUTE DISTRESS NOTED. ALL NEEDS MET. CALL LIGHT IN REACH. CONTINUE TO MONITOR.
--- NOTE | 2020-07-02 12:53 | NUR ---
Dietitian Recommendations *Continue clear liquid diet as ordered by MD. Supplement Ensure Clear comes standard w/ each meal and provides 720 kcal and 24gm protein daily *Recommend: advance diet when medically appropriate. *Consider appetite stimulant and continue w/ immune boosters. Please see Nutritional Assessment for details. ETTA BAIRES
[2020-07-02 13:00] VITALS: BP_SYST 111
--- NOTE | 2020-07-02 13:15 | NUR ---
PT C/O PAIN, ITCHING, AND NAUSEA, SPOKE TO PHARMACIST, YENIFER FITZGERALD TO GIVE MEDS IF NEEDED, ADMINISTERED PRN MEDS ORDERED PER MD, CHECKED BP, PT AWAKE AND ALERT, EDUCATION GIVEN, TOLERATED WELL. CONTINUE TO MONITOR.
[2020-07-02 16:00] VITALS: BP_SYST 122
--- NOTE | 2020-07-02 18:15 | NUR ---
PT C/O PAIN, ITCHING, AND NAUSEA, CHECKED BP, ADMINISTERED PRN MEDS ORDERED PER MD, EDUCATION GIVEN, TOLERATED WELL. PT AWAKE AND ALERT, PT VERBALIZED UNDERSTANDING. CONTINUE TO MONITOR.
--- NOTE | 2020-07-02 18:15 | NUR ---
CLOSING NOTES PT AWAKE AND ALERT, WATCHING TV IN BED. NONLABORED BREATHING NOTED ON ROOM AIR. NO ACUTE DISTRESS NOTED. IV LINE INTACT AND PATENT, NO SIGNS OF INFILTRATION NOTED, FLUIDS RUNNING ORDERED, TOLERATING WELL. PT REFUSED SCD'S AT THIS TIME AND STATED WILL PUT ON BEFORE SLEEPING TONIGHT. SEIZURE PADS IN PLACE. ALL NEEDS MET. CALL LIGHT IN REACH. FALL AND ASPIRATION AND ISOLATION PRECAUTIONS IN PLACE. ENDORSED CARE TO ABHILASH CRAIG. Addendum: 07/02/20 at 1932 by Adriana Calixto RN WRONG TIME- 1914
--- NOTE | 2020-07-02 19:30 | NUR ---
Initial Note: Received report from dayshift RN. Patient is in bed, watching tv. No acute distress. Even, nonlabored breathing on room air. IV fluids are infusing as ordered. Bed is locked at lowest position. Side rails up x2. Call light is with patient. Seizure, Covid, Safety and fall precautions in place. Will continue with plan of care.
[2020-07-02 20:00] VITALS: BP_SYST 108
--- NOTE | 2020-07-02 22:07 | NUR ---
Nausea/Itching/Pain: Patient complained of nausea, itching, and severe pain. PRN medications indicated. Educated patient on indications and side effects of medications. Patient verbalized understanding. Medications administered per MD order. Patient tolerated well. Will continue to monitor and reassess.
[2020-07-03] VITALS: BP_SYST 104
--- NOTE | 2020-07-03 00:15 | NUR ---
Rounds: Patient in bed, sleeping. No signs of acute distress. Even, nonlabored breathing on room air. Call light is with patient. Seizure, Covid, safety and fall precautions in place. Will continue to monitor.
[2020-07-03] MEDS: MORPHINE 4 MG/ML INJ. SYRINGE IVP PRN ×6 (02:00→22:20)
[2020-07-03] MEDS: ONDANSETRON HCL 4 MG/2 ML VIAL IVP PRN ×6 (02:00→22:20)
[2020-07-03] MEDS: DIPHENHYDRAMINE INJ 50 MG/ML VIAL IVP PRN ×6 (02:00→22:20)
--- NOTE | 2020-07-03 02:00 | NUR ---
Nausea/Itching/Pain: Patient complained of nausea, itching, and severe pain. PRN medications indicated. Patient educated on indications and side effects of medications. Patient verbalized understanding. Medications administered per MD order. Patient tolerated well. Will continue to monitor and reassess.
--- NOTE | 2020-07-03 04:15 | NUR ---
Rounds: Patient in bed, sleeping. No s/s acute distress. Respirations are even and nonlabored on room air. Call light is with patient. Seizure, Covid, safety and fall precautions in place. Will continue monitoring
[2020-07-03] MEDS: FAMOTIDINE PF 20 MG/2 ML VIAL IVP SCH ×3 (06:00→20:24)
--- NOTE | 2020-07-03 06:00 | NUR ---
Nausea/Itching/Pain: Patient complained of nausea, itching, and 8/10 stomach pain. PRN medications indicated. Patient educated on indications and side effects of medications. Patient verbalized understanding. Medications administered per MD order. Patient tolerated well. Will continue to monitor and reassess.
--- NOTE | 2020-07-03 06:55 | NUR ---
Closing note: Patient is in bed, resting. No acute distress. Even, nonlabored breathing on room air. IV fluids are infusing as ordered. All needs met. Bed is locked at lowest position. Side rails up x2. Call light is with patient. Seizure, Covid, Safety and fall precautions in place. Will endorse to dayshift RN.
[2020-07-03 07:24] LABS: CALCIUM 8.7 mg/dL (8.4-11.0); CREATININE 1.18 mg/dL (0.55-1.30); POTASSIUM 4.5 mmol/L (3.5-5.1)
[2020-07-03 07:33] LABS: BASOPHILS # (AUTO) 0.1 K/uL (0.0-0.2); BASOPHILS % (AUTO) 0.8 % (0.0-2.0); EOSINOPHILS # (AUTO) 0.4 K/uL (0.0-0.4); EOSINOPHILS % (AUTO) 4.7 % (0.0-4.0); HEMATOCRIT 34.4 % (36-48); HEMOGLOBIN 11.1 g/dL (12.0-16.0); LYMPHOCYTES # (AUTO) 2.6 K/uL (1.0-5.5); LYMPHOCYTES % (AUTO) 30.6 % (20.5-51.5); MEAN CORPUSCULAR HEMOGLOBIN 27 pg (27-31); MEAN CORPUSCULAR HGB CONC 32 % (32-36); MEAN CORPUSCULAR VOLUME 82 fL (79.0-98.0); MONOCYTES # (AUTO) 0.5 K/uL (0.0-1.0); MONOCYTES % (AUTO) 6.4 % (1.7-9.3); NEUTROPHILS # (AUTO) 4.9 K/uL (1.8-7.7); NEUTROPHILS % (AUTO) 57.5 % (40.0-70.0); PLATELET COUNT (AUTO) 378 K/uL (130-430); RED BLOOD CELL COUNT(AUTO) 4.17 MIL/uL (4.2-6.2); RED CELL DISTRIBUTION WIDTH 15.1 % (9.0-15.0); WHITE BLOOD COUNT (AUTO) 8.5 K/uL (4.8-10.8)
--- NOTE | 2020-07-03 07:40 | NUR ---
Initial notes: Patient is awake, alert and oriented, not showing any signs of distress on RA. Says pain tolerable but meds were given 2 hrs ago for pain, next dose will be given at 10am, when its due. Patient is ambulatory and gait is steady. Patient remains in isolation precautions due to positive covid test, patient is also on seizure precautions due to hx of seizure, pads are placed on bed. IV line RFA #20G is patent and running LR @100ML/HR. Skin is intact and does not show signs of skin integrity. I will continue to monitor patients status. I got a full report from the mri ct tech nurse. Bed is low, locked, 2 side rails are up and call light is within reach.
[2020-07-03] MEDS: aMILoride HCL 5 MG TABLET PO SCH ×2 (08:31→20:24)
[2020-07-03] MEDS: DULoxetine HCL 30 MG CAPSULE.DR (CYMBALTA) PO SCH (08:32)
[2020-07-03] MEDS: CYCLOBENZAPRINE HCL 10 MG TABLET (FLEXERIL) PO SCH ×2 (08:32→20:25)
[2020-07-03] MEDS: CHOLECALCIFEROL (VITAMIN D3) 2,000 UNIT TABLET PO SCH ×2 (08:32→20:25)
[2020-07-03] MEDS: POTASSIUM CHLORIDE 20 MEQ TAB.PRT.SR PO SCH ×4 (08:32→22:10)
[2020-07-03 09:23] VITALS: BP_SYST 61
[2020-07-03] MEDS: MAGNESIUM CHLORIDE 64 MG TABLET.DR PO SCH ×4 (09:26→20:25)
[2020-07-03] MEDS: LR 1,000 ML IV SCH ×2 (09:27→19:28)
[2020-07-03] MEDS: SPIRONOLACTONE 50 MG TABLET (ALDACTONE) PO SCH (09:27)
--- NOTE | 2020-07-03 10:01 | NUR ---
Patient is doing well, not showing any signs of distress at this time on RA. Pain meds were given to patient for pain and request of zofran and benadryl. All needs were met. Bed is low, locked, 2 side rails are up and call light is within reach.
[2020-07-03 12:00] VITALS: BP_SYST 72
[2020-07-03] MEDS ORDERED: MAGNESIUM SULFATE 4 GM in D5W 250 ML IV ONE (12:00)
--- NOTE | 2020-07-03 12:15 | NUR ---
Brought in meal tray,patient just wanted jello and nothing else. IV mag was hung and meds were given. Patient is not showing any signs of distress at this time. Bed is low, locked, 2 side rails are up and call light is within reach.
[2020-07-03] MEDS ORDERED: ASCORBIC ACID 500 MG TABLET PO ONE (13:00)
[2020-07-03] MEDS ORDERED: ENOXAPARIN SODIUM 40 MG/0.4 ML SYRINGE SUBCUT ONE (13:00)
[2020-07-03] MEDS: ACETAMINOPHEN 500 MG TABLET PO PRN (13:04)
[2020-07-03] MEDS: metroNIDAZOLE 500 mg/NS 100 ML IV SCH ×2 (13:58→22:10)
--- NOTE | 2020-07-03 14:11 | NUR ---
Patient sitting in bed, not showing any signs of distress. Talking on the phone. All needs were met. Bed is low, locked, 2 side rails are up and call light is within reach.
[2020-07-03] MEDS: LORazepam 1 MG TABLET PO PRN (14:30)
[2020-07-03 16:00] VITALS: BP_SYST 134
--- NOTE | 2020-07-03 16:12 | NUR ---
Patient is sitting in bed, watching tv, not showing any signs of distress at this time. All needs were met. Bed is low, locked, 2 side rails are up and call light is within reach.
--- NOTE | 2020-07-03 18:56 | NUR ---
Closing notes: Patient is awake, alert and oriented, not showing any signs of distress on RA. Patient was given morphine, zofran and benadryl every 4hrs during the shift. Patient is ambulatory and gait is steady. Patient remains in isolation precautions due to positive covid test, patient is also on seizure precautions due to hx of seizure, pads are placed on bed. IV line RFA #20G is patent and running LR @100ML/HR. Skin is intact and does not show signs of skin integrity. All needs were met during shhift. I will give a full report to the document controller nurse. Bed is low, locked, 2 side rails are up and call light is within reach.
--- NOTE | 2020-07-03 19:30 | NUR ---
Opening notes Received report. Patient is resting in bed, watching TV. No signs of distress noted. Breathing even and unlabored on room air. No SOB. IV patent and intact, infusing fluids. Patient provided with ice water, ice chips, and jellos. Informed patient that doctor ordered stool culture and stool sample is required. Patient verbalized understanding. Hat placed in bathroom for collection. No other needs. Call light with the patient. Safety precautions in place.
[2020-07-03 20:00] VITALS: BP_SYST 116
--- NOTE | 2020-07-03 20:30 | NUR ---
Medications given. Educated the action and side effects of Pepcid. Patient verbalized understanding and tolerated well. Patient ambulatory with steady gait. Patient states she only feels short of breath when she breaths heavily, otherwise, no shortness of breath. SCDs placed on patient. No other needs. Call light with the patient. Safety precautions in place.
--- NOTE | 2020-07-03 22:20 | NUR ---
Nausea/Itching/Pain Patient complaining of nausea, itching and pain. PRN medications given. Educated the action and side effects of medications, also educated patient on fall precautions. Patient verbalized understanding and tolerated well. VSS. No other needs. Call light with the patient. Safety precautions in place.
--- NOTE | 2020-07-04 00:30 | NUR ---
RN rounds Patient is resting in bed, no signs of distress noted. Breathing even and unlabored on room air. IVF infusing well. Call light with the patient. Safety precautions in place.
[2020-07-04] MEDS: ONDANSETRON HCL 4 MG/2 ML VIAL IVP PRN ×4 (02:20→17:20)
[2020-07-04] MEDS: DIPHENHYDRAMINE INJ 50 MG/ML VIAL IVP PRN ×4 (02:20→17:20)
[2020-07-04] MEDS: MORPHINE 4 MG/ML INJ. SYRINGE IVP PRN ×4 (02:20→17:20)
[2020-07-04 02:48] VITALS: BP_SYST 119
[2020-07-04] MEDS: LR 1,000 ML IV SCH ×2 (05:28→10:20)
[2020-07-04] MEDS: metroNIDAZOLE 500 mg/NS 100 ML IV SCH ×2 (06:54→13:06)
[2020-07-04 06:56] LABS: BASOPHILS # (AUTO) 0.1 K/uL (0.0-0.2); BASOPHILS % (AUTO) 1.1 % (0.0-2.0); EOSINOPHILS # (AUTO) 0.3 K/uL (0.0-0.4); EOSINOPHILS % (AUTO) 3.8 % (0.0-4.0); HEMOGLOBIN 11.4 g/dL (12.0-16.0); LYMPHOCYTES # (AUTO) 1.8 K/uL (1.0-5.5); LYMPHOCYTES % (AUTO) 22.2 % (20.5-51.5); MEAN CORPUSCULAR HEMOGLOBIN 26 pg (27-31); MEAN CORPUSCULAR HGB CONC 33 % (32-36); MEAN CORPUSCULAR VOLUME 81 fL (79.0-98.0); MONOCYTES # (AUTO) 0.6 K/uL (0.0-1.0); MONOCYTES % (AUTO) 6.9 % (1.7-9.3); NEUTROPHILS # (AUTO) 5.5 K/uL (1.8-7.7); PLATELET COUNT (AUTO) 351 K/uL (130-430); RED BLOOD CELL COUNT(AUTO) 4.33 MIL/uL (4.2-6.2); RED CELL DISTRIBUTION WIDTH 15.5 % (9.0-15.0); WHITE BLOOD COUNT (AUTO) 8.3 K/uL (4.8-10.8)
[2020-07-04 07:17] LABS: C-REACTIVE PROTEIN QUANT 1.9 mg/dL (0-0.5); CALCIUM 9.1 mg/dL (8.4-11.0); CREATININE 1.1 mg/dL (0.55-1.30); POTASSIUM 4.3 mmol/L (3.5-5.1)
--- NOTE | 2020-07-04 07:30 | NUR ---
Closing notes Patient is resting in bed, no signs of distress noted. Breathing even and unlabored on room air. IV patent and intact, infusing fluids. No complaints of pain or discomfort at this time. all needs met throughout the shift. Call light with the patient. Safety precautions in place. Care endorsed to day shift RN.
[2020-07-04 08:00] VITALS: BP_SYST 98
--- NOTE | 2020-07-04 08:15 | NUR ---
Opening Notes Patient is awake, alert and oriented x4. No resp distress noted. Breathing is even and unlabored at this time. Pt c/o minimal pain, 5/10, requesting Tylenol later during shift. IV site on right FA, 20 gauge intact at this time. LR @ 100 cc/hr, infusing well at this time. Pt is noted with a right upper permacath, not in use at this time. Pt is ambulatory, steady gait. No BM yet. Pt was educated that a stool sample is still needed. Pt reports intermittent nausea, but no vomiting. Denies any diarrhea, cough or abnormal bleeding. All needs met at this time. Safety and fall precautions in place. Bed in lowest position, locked. Will continue to monitor.
[2020-07-04] MEDS ORDERED: ASCORBIC ACID 500 MG TABLET PO SCH (09:00)
[2020-07-04] MEDS ORDERED: ENOXAPARIN SODIUM 40 MG/0.4 ML SYRINGE SUBCUT SCH (09:00)
[2020-07-04] MEDS: DULoxetine HCL 30 MG CAPSULE.DR (CYMBALTA) PO SCH (09:26)
[2020-07-04] MEDS: CHOLECALCIFEROL (VITAMIN D3) 2,000 UNIT TABLET PO SCH (09:26)
[2020-07-04] MEDS: POTASSIUM CHLORIDE 20 MEQ TAB.PRT.SR PO SCH ×3 (09:26→17:00)
[2020-07-04] MEDS: CYCLOBENZAPRINE HCL 10 MG TABLET (FLEXERIL) PO SCH (09:26)
[2020-07-04] MEDS: MAGNESIUM CHLORIDE 64 MG TABLET.DR PO SCH ×3 (09:26→17:00)
[2020-07-04] MEDS: aMILoride HCL 5 MG TABLET PO SCH (09:26)
[2020-07-04] MEDS: FAMOTIDINE PF 20 MG/2 ML VIAL IVP SCH (09:26)
--- NOTE | 2020-07-04 10:25 | NUR ---
Notes/Morphine, Benadryl, Zofran Patient is awake, alert and oriented x4, laying in bed at this time. No resp distress at this time. Pt is c/o 8/10 general body pain and nausea. Patient was given: Morphine, Benadryl, Zofran. Patient is also c/o BURGOS, administered Tylenol 650 mg, tolerated well. Will continue to monitor.
[2020-07-04] MEDS: ACETAMINOPHEN 500 MG TABLET PO PRN (10:45)
[2020-07-04 12:00] VITALS: BP_SYST 109
--- NOTE | 2020-07-04 12:00 | NUR ---
Notes Patient is laying in bed, resting. Patient was encouraged to ambulate in her room to promote bowel movement, pt aware and agreed. Patient has a poor appetite, reports feeling nauseous. Per patient, "I just want to rest for now, the Benadryl is kicking in." Pts IV ATB infusing at this time. All needs met. Will continue to monitor.
[2020-07-04] MEDS ORDERED: MAGNESIUM SULFATE 50 ML IV ONE (13:00)
[2020-07-04 13:14] VITALS: BP_SYST 109
[2020-07-04] MEDS ORDERED: ONDA4TAB5 PO (13:39)
[2020-07-04] MEDS: LORazepam 1 MG TABLET PO PRN (14:42)
--- NOTE | 2020-07-04 14:43 | NUR ---
Notes/Ativan Patient is laying in bed, resting at this time. No resp distress noted. Breathing is even and unlabored. Patient reports feeling anxious, requesting Ativan. Administered Ativan 1 mg PO, tolerated well. Will continue to monitor.
[2020-07-04 16:09] VITALS: BP_SYST 114
--- NOTE | 2020-07-04 16:11 | NUR ---
Notes Patient is awake, alert and oriented x4, laying in bed. No resp distress noted. Denies any pain at this time. IV MAGNESIUM still infusing at this time. Will continue to monitor.
--- NOTE | 2020-07-04 18:41 | NUR ---
Closing Notes Patient is laying in bed, eating dinner at this time, preparing for discharge. No resp distress noted. Breathing is even and unlabored. Patient denies any pain at this time. IV site on right FA, 20 gauge intact at this time. LR @ 100 cc/hr, infusing well. Pt denies any NV, cough or abnormal bleeding. Pt reports no BM during shift. Seizure precautions in place, padded siderails, bed in lowest position. All needs met at this time. Safety and fall precautions in place. Bed in lowest position, locked. Will continue to monitor.
--- NOTE | 2020-07-04 19:28 | NUR ---
NOTES PATIENT DISCHARGED TO HOME ORDERED WITH STABLE VITAL SIGNS. DENIES ANY PAIN AT THIS TIME. DISCHARGE PACKET DONE BY A.M. SHIFT NURSE. BELONGINGS CHECKED AND IV D/CD. ALL NEEDS ATTENDED TO. PATIENT WHEELED OUTSIDE TO THE PARKING LOT TO HER FAMILY.
== END 2020-07-04 19:28 | disposition home or self-care (01) | DRG 178 ==
LOC: SED 16:07 → SMU 18:15 → STU 22:12
PROVIDERS: ADMIT Internal Medicine; ATTEND Internal Medicine
DX: U07.1 COVID-19 (principal); A08.39 Other viral enteritis; T85.618A Breakdown (mechanical) of other specified internal prosthetic devices, implants and grafts, initial encounter; M79.7 Fibromyalgia; M11.262 Other chondrocalcinosis, left knee; M11.261 Other chondrocalcinosis, right knee; E03.9 Hypothyroidism, unspecified; G89.4 Chronic pain syndrome; D64.9 Anemia, unspecified; J45.909 Unspecified asthma, uncomplicated; E66.9 Obesity, unspecified; E11.65 Type 2 diabetes mellitus with hyperglycemia; F32.9 Major depressive disorder, single episode, unspecified; F41.9 Anxiety disorder, unspecified; Y83.8 Other surgical procedures as the cause of abnormal reaction of the patient, or of later complication, without mention of misadventure at the time of the procedure; Y92.89 Other specified places as the place of occurrence of the external cause
CPT/HCPCS: 36415; 71045; 80048; 80053; 81003; 82728; 83036; 83540-TC; 83550-TC; 83605; 83735-TC; 83880; 84484; 85025; 85379; 85610-TC; 85651-TC; 86140; 87040-TC; 93005; 94640; 96361; 96365; 96366; 96375; 99285; G0378; J1200; J1650; J2270; J2405; J3475; J3490; J7030; J7060; J7120; J7613

== ENCOUNTER 2020-12-25 12:20 | Outpatient (CLI) | payer OTHER ==
[~2020-12-25 12:20] MED LIST changes: +ONDA4TAB5 PO
[2020-12-25 12:55] LABS: BASOPHILS # (AUTO) 0.2 K/uL (0.0-0.2); BASOPHILS % (AUTO) 1.3 % (0.0-2.0); EOSINOPHILS # (AUTO) 0.2 K/uL (0.0-0.4); EOSINOPHILS % (AUTO) 1.3 % (0.0-4.0); HEMATOCRIT 34.6 % (36-48); LYMPHOCYTES # (AUTO) 2.7 K/uL (1.0-5.5); LYMPHOCYTES % (AUTO) 19.7 % (20.5-51.5); MEAN CORPUSCULAR HEMOGLOBIN 24 pg (27-31); MEAN CORPUSCULAR HGB CONC 32 % (32-36); MEAN CORPUSCULAR VOLUME 76 fL (79.0-98.0); MONOCYTES # (AUTO) 0.5 K/uL (0.0-1.0); MONOCYTES % (AUTO) 3.9 % (1.7-9.3); NEUTROPHILS # (AUTO) 10.1 K/uL (1.8-7.7); NEUTROPHILS % (AUTO) 73.8 % (40.0-70.0); PLATELET COUNT (AUTO) 476 K/uL (130-430); RED BLOOD CELL COUNT(AUTO) 4.58 MIL/uL (4.2-6.2); RED CELL DISTRIBUTION WIDTH 16.4 % (9.0-15.0); WHITE BLOOD COUNT (AUTO) 13.7 K/uL (4.8-10.8)
[2020-12-25 13:00] LABS: BILIRUBIN,URINE NEGATIVE (NEGATIVE); BLOOD, URINE NEGATIVE (NEGATIVE); CLARITY/URINE CLEAR (CLEAR); COLOR,URINE YELLOW (YELLOW); GLUCOSE,URINE NEGATIVE (NEGATIVE); KETONES,URINE NEGATIVE (NEGATIVE); LEUKOCYTE ESTERASE ,URINE NEGATIVE (NEGATIVE); NITRITE, URINE NEGATIVE (NEGATIVE); PROTEIN URINE NEGATIVE (NEGATIVE); UROBILINOGEN,URINE 0.2 (0.2-1.0)
[2020-12-25 13:34] LABS: ALBUMIN 3.8 g/dL (3.4-4.8); CALCIUM 8.6 mg/dL (8.4-11.0); CREATININE 1.11 mg/dL (0.55-1.30); POTASSIUM 3.1 mmol/L (3.5-5.1); THYROID STIMULATING HORMONE 0.84 uIu/mL (0.34-4.82); TOTAL BILIRUBIN 0.9 mg/dL (0.0-1.0); URIC ACID 6.3 mg/dL (2.4-7.0)
[2020-12-26 08:54] LABS: HEMOGLOBIN A1C 9.7 % (4.8-5.6)
== END 2020-12-25 18:00 | disposition home or self-care (01) ==
LOC: SLB 12:20
PROVIDERS: ATTEND Internal Medicine
DX: M10.9 Gout, unspecified (principal); E11.9 Type 2 diabetes mellitus without complications; E55.9 Vitamin D deficiency, unspecified
CPT/HCPCS: 36415; 80053; 80061; 81003; 82306; 82607; 83036; 84443; 84550; 85025

== ENCOUNTER 2022-02-16 17:39 | Emergency (ER) | payer OTHER ==
[~2022-02-16] VITALS: Ht 167.6 cm; Wt 102.1 kg
[~2022-02-16 17:39] MED LIST changes: -CYCL-10 PO; +CYCL10TA24 PO; +POTA-178 PO; -POTA10TA11 PO
[2022-02-16 17:47] VITALS: BP_SYST 117
--- NOTE | 2022-02-16 18:24 | NUR ---
Placed in room 04 . Placed on cardiac monitor technician, blood pressure machine and pulse oximeter. To gown for exam. Side rails up. Report given to ABHILASH PANG
--- NOTE | 2022-02-16 18:30 | NUR ---
PATIENT BROUGHT VIA ALS FOR SHAKING FROM HOME IN 4 TO 6 MINUTES IN [place]. DENIES ANY SEIZURE. GCS 15. PATIENT REPORTS LAST TRANSFUSION WAS THURSDAY. PAIN 10/10. NO ACUTE DISTRESS NOTED.
--- NOTE | 2022-02-16 18:52 | NUR ---
ER Dr. HARRISON at bedside examining patient.
[2022-02-16] MEDS ORDERED: DIPHENHYDRAMINE INJ 50 MG/ML VIAL IVP ONE (19:00)
[2022-02-16] MEDS ORDERED: NACL 0.9% 1,000 ML IV ONE (19:00)
[2022-02-16] MEDS ORDERED: MORPHINE 4 MG INJ. 4 MG/ML VIAL IVP ONE ×2 (19:00→20:00)
--- NOTE | 2022-02-16 19:16 | NUR ---
ACCESSED PORTOCATH USING STERILE TECHNIQUE. PATIENT TOLERATING WELL. BLOOD COLLECTED AND SENT TO LAB
[2022-02-16 19:32] LABS: BASOPHILS # (AUTO) 0.1 K/uL (0.0-0.2); BASOPHILS % (AUTO) 1.1 % (0.0-2.0); EOSINOPHILS # (AUTO) 0.2 K/uL (0.0-0.4); EOSINOPHILS % (AUTO) 1.5 % (0.0-4.0); HEMATOCRIT 36.9 % (36-48); LYMPHOCYTES # (AUTO) 3.4 K/uL (1.0-5.5); LYMPHOCYTES % (AUTO) 24.7 % (20.5-51.5); MEAN CORPUSCULAR HEMOGLOBIN 27 pg (27-31); MEAN CORPUSCULAR HGB CONC 33 % (32-36); MEAN CORPUSCULAR VOLUME 82 fL (79.0-98.0); MONOCYTES # (AUTO) 0.8 K/uL (0.0-1.0); MONOCYTES % (AUTO) 5.6 % (1.7-9.3); NEUTROPHILS # (AUTO) 9.3 K/uL (1.8-7.7); NEUTROPHILS % (AUTO) 67.1 % (40.0-70.0); PLATELET COUNT (AUTO) 402 K/uL (130-430); RED BLOOD CELL COUNT(AUTO) 4.48 MIL/uL (4.2-6.2); RED CELL DISTRIBUTION WIDTH 13.7 % (9.0-15.0); WHITE BLOOD COUNT (AUTO) 13.8 K/uL (4.8-10.8)
[2022-02-16 19:41] LABS: CALCIUM 8.3 mg/dL (8.4-11.0); CREATININE 1.16 mg/dL (0.55-1.30); POTASSIUM 3.7 mmol/L (3.5-5.1)
[2022-02-16 19:46] LABS: ALBUMIN 3.6 g/dL (3.4-4.8); TOTAL BILIRUBIN 0.2 mg/dL (0.0-1.0)
[2022-02-16] MEDS ORDERED: MORPHINE 4 MG INJ. 4 MG/ML VIAL ONE (19:55)
[2022-02-16] MEDS ORDERED: MAGNESIUM SULFATE 4 GM in D5W 250 ML IV ONE (20:15)
[2022-02-16] MEDS ORDERED: POTASSIUM CHLORIDE 20 MEQ TAB.PRT.SR PO ONE (20:30)
[2022-02-16] MEDS ORDERED: KCL 20 mEq in 100 mL (PREMIX) 100 ML IV ONE (20:30)
[2022-02-16] MEDS ORDERED: MAGNESIUM SULFATE 100 ML IV ONE (20:36)
[2022-02-16] MEDS ORDERED: DIPHENHYDRAMINE HCL 25 MG CAPSULE PO ONE (21:00)
[2022-02-16] MEDS ORDERED: HYDROmorphone 1 MG/ML INJ. CARTRIDGE IVP ONE (21:00)
--- NOTE | 2022-02-16 21:06 | NUR ---
MEDICATED PER MD ORDERS PATIENT TOLERATED WELL. NO ACUTE DISTRESS NOTED.
--- NOTE | 2022-02-16 22:45 | NUR ---
Patient given written and verbal discharge instructions and verbalizes understanding. ER MD discussed with patient the results and treatment provided. Patient in stable condition. ID arm band removed. IV catheter removed intact and dressing applied, no active bleeding. NO RX given. Patient educated on pain management and to follow up with PMD. Pain Scale 0/10 Opportunity for questions provided and answered.
[2022-02-16 22:47] VITALS: BP_SYST 110
== END 2022-02-16 22:47 | disposition home or self-care (01) ==
LOC: SED 17:39
DX: R25.1 Tremor, unspecified (principal); N15.8 Other specified renal tubulo-interstitial diseases; E11.9 Type 2 diabetes mellitus without complications; I10 Essential (primary) hypertension; Z88.0 Allergy status to penicillin; Z91.018 Allergy to other foods
CPT/HCPCS: 36415; 80053; 83735; 85025; 96361; 96365; 96366; 96375; 99284; J1170; J1200; J2270; J3475; J3480; J7030; Q0163; 96368

== ENCOUNTER 2022-03-02 18:09 | Emergency (ER) | payer OTHER ==
[~2022-03-02] VITALS: Ht 167.6 cm; Wt 101.6 kg
[2022-03-02 18:09] VITALS: BP_SYST 134
--- NOTE | 2022-03-02 20:38 | NUR ---
Placed in room 05 . Placed on brushing operator, blood pressure machine and pulse oximeter. To gown for exam. Side rails up. Report given to ABHILASH Lopez
[2022-03-02 21:43] VITALS: BP_SYST 134
--- NOTE | 2022-03-02 21:43 | NUR ---
PATIENT STATES " I AM OUT." SEEN AMBULATING WITH STEADY GAIT OUTSIDE ED DOORS. MD NOTIFED. PATIENT LEFT WITHOUT BEING SEEN.
== END 2022-03-02 21:43 | disposition left against medical advice (07) ==
LOC: SED 18:09
DX: M54.50 Low back pain, unspecified (principal); Z53.21 Procedure and treatment not carried out due to patient leaving prior to being seen by health care provider

== ENCOUNTER 2022-06-21 10:22 | Emergency (ER) | payer OTHER ==
[~2022-06-21] VITALS: Ht 170.2 cm; Wt 103.0 kg
[2022-06-21 11:09] VITALS: BP_SYST 107
--- NOTE | 2022-06-21 11:10 | NUR ---
Patient to ER bed 04 to gown for evaluation. Side rails up. Report RECEIVED FROM ABHILASH LOPEZ.
--- NOTE | 2022-06-21 11:12 | NUR ---
PATIENT CAME IN C/O SEVERE BODY ACHES R/T CHRONIC KIDNEY CONDITION DIAGNOSED MORE THAN 20YEARS AGO. PT HAS CHRONIC ISSUES WITH DEPLETED ELECTROLYTES IE POTASSIUM, MAGNESIUM. PATIENT OF DR. HOLLY, SHE GOES TO [facility] 3[facility]/WEEK FOR SCHEDULED INFUSIONS. PT IS A&OX4, CALM AND COOPERATIVE. CARE WILL BE PROVIDED ORDERED.
[2022-06-21] MEDS ORDERED: MAGNESIUM SULFATE 50 ML IV ONE ×2 (11:15→12:45)
[2022-06-21] MEDS ORDERED: MORPHINE 4 MG INJ. 4 MG/ML VIAL IVP ONE ×2 (11:15→12:45)
[2022-06-21] MEDS ORDERED: DIPHENHYDRAMINE INJ 50 MG/ML VIAL IVP ONE (11:15)
--- NOTE | 2022-06-21 11:15 | NUR ---
ER Dr. LLAMAS at bedside examining patient.
[2022-06-21] MEDS ORDERED: MORPHINE 4 MG INJ. 4 MG/ML VIAL ONE (11:27)
[2022-06-21 12:02] LABS: CALCIUM 9.1 mg/dL (8.4-11.0); CREATININE 1.09 mg/dL (0.55-1.30); POTASSIUM 3.8 mmol/L (3.5-5.1)
[2022-06-21 12:08] LABS: BASOPHILS # (AUTO) 0.1 K/uL (0.0-0.2); BASOPHILS % (AUTO) 1.1 % (0.0-2.0); EOSINOPHILS # (AUTO) 0.1 K/uL (0.0-0.4); EOSINOPHILS % (AUTO) 1.1 % (0.0-4.0); HEMATOCRIT 31.6 % (36-48); HEMOGLOBIN 10.4 g/dL (12.0-16.0); LYMPHOCYTES # (AUTO) 2.4 K/uL (1.0-5.5); LYMPHOCYTES % (AUTO) 22.4 % (20.5-51.5); MEAN CORPUSCULAR HEMOGLOBIN 25 pg (27-31); MEAN CORPUSCULAR HGB CONC 33 % (32-36); MEAN CORPUSCULAR VOLUME 76 fL (79.0-98.0); MONOCYTES # (AUTO) 0.5 K/uL (0.0-1.0); MONOCYTES % (AUTO) 4.7 % (1.7-9.3); NEUTROPHILS # (AUTO) 7.6 K/uL (1.8-7.7); NEUTROPHILS % (AUTO) 70.7 % (40.0-70.0); PLATELET COUNT (AUTO) 418 K/uL (130-430); RED BLOOD CELL COUNT(AUTO) 4.17 MIL/uL (4.2-6.2); RED CELL DISTRIBUTION WIDTH 15.5 % (9.0-15.0); WHITE BLOOD COUNT (AUTO) 10.8 K/uL (4.8-10.8)
[2022-06-21 14:26] VITALS: BP_SYST 107
--- NOTE | 2022-06-21 14:29 | NUR ---
Patient given written and verbal discharge instructions and verbalizes understanding. ER DR. FARHAD WATSON discussed with patient the results and treatment provided. Patient in stable condition. ID arm band removed. IV catheter removed intact and dressing applied, no active bleeding. Patient educated on pain management and to follow up with PMD. Pain Scale 2/10. Opportunity for questions provided and answered. Medication side effect fact sheet provided.
== END 2022-06-21 14:10 | disposition home or self-care (01) ==
LOC: SED 10:22
DX: E83.42 Hypomagnesemia (principal); N15.8 Other specified renal tubulo-interstitial diseases; E11.9 Type 2 diabetes mellitus without complications; I50.9 Heart failure, unspecified; I11.0 Hypertensive heart disease with heart failure; Z91.018 Allergy to other foods; Z88.0 Allergy status to penicillin; Z79.899 Other long term (current) drug therapy
CPT/HCPCS: 99285; 96374; 96375; 80048; 83735; 85025; 36415; 96376; J1200; J3475; J2270

== ENCOUNTER 2022-07-05 20:21 | Emergency (ER) | payer OTHER ==
[~2022-07-05] VITALS: Ht 167.6 cm; Wt 93.0 kg
--- NOTE | 2022-07-05 20:30 | NUR ---
Patient triaged and placed in room 8. VSS and patient appears in no acute distress at this time. Accompanied by caregiver. MD Aponte notified of need for MSE.
[2022-07-05 20:35] VITALS: BP_SYST 162
--- NOTE | 2022-07-05 20:35 | NUR ---
ER at bedside examining patient.
[2022-07-05] MEDS ORDERED: LORazepam 2 MG/ML VIAL IM ONE (20:45)
--- NOTE | 2022-07-05 20:45 | NUR ---
Pt BIB family to ED, 57-year-old Female with history of Gettleman syndrome and seizure disorder who presents to the emergency department status post witnessed tonic-clonic seizure. Per the patient's family member the seizure occurred half an hour ago. Denies associated head trauma or extremity injury. Patient family member states that she has a history of having seizures when her magnesium and potassium levels are low. Patient's last magnesium/potassium infusion was on
[2022-07-05 21:25] LABS: BASOPHILS # (AUTO) 0.1 K/uL (0.0-0.2); BASOPHILS % (AUTO) 1.1 % (0.0-2.0); EOSINOPHILS # (AUTO) 0.3 K/uL (0.0-0.4); EOSINOPHILS % (AUTO) 2.3 % (0.0-4.0); HEMATOCRIT 31.1 % (36-48); HEMOGLOBIN 10.1 g/dL (12.0-16.0); LYMPHOCYTES # (AUTO) 3.9 K/uL (1.0-5.5); LYMPHOCYTES % (AUTO) 32.6 % (20.5-51.5); MEAN CORPUSCULAR HEMOGLOBIN 25 pg (27-31); MEAN CORPUSCULAR HGB CONC 33 % (32-36); MEAN CORPUSCULAR VOLUME 76 fL (79.0-98.0); MONOCYTES # (AUTO) 0.7 K/uL (0.0-1.0); MONOCYTES % (AUTO) 5.7 % (1.7-9.3); NEUTROPHILS # (AUTO) 6.9 K/uL (1.8-7.7); NEUTROPHILS % (AUTO) 58.3 % (40.0-70.0); PLATELET COUNT (AUTO) 433 K/uL (130-430); RED CELL DISTRIBUTION WIDTH 15.7 % (9.0-15.0); WHITE BLOOD COUNT (AUTO) 11.8 K/uL (4.8-10.8)
[2022-07-05] MEDS ORDERED: MORPHINE 2 MG/ML INJ. SYRINGE IVP ONE (21:30)
[2022-07-05] MEDS ORDERED: DIPHENHYDRAMINE INJ 50 MG/ML VIAL IVP ONE ×2 (21:30→23:45)
[2022-07-05] MEDS ORDERED: ONDANSETRON HCL 4 MG/2 ML VIAL IVP ONE ×2 (21:30→23:45)
[2022-07-05] MEDS ORDERED: NACL 0.9% 1,000 ML IV ONE (21:30)
[2022-07-05 21:34] LABS: CALCIUM 8.4 mg/dL (8.4-11.0); CREATININE 0.98 mg/dL (0.55-1.30); POTASSIUM 4.4 mmol/L (3.5-5.1)
[2022-07-05 21:38] LABS: ALBUMIN 3.6 g/dL (3.4-4.8); TOTAL BILIRUBIN 0.2 mg/dL (0.0-1.0)
[2022-07-05] MEDS ORDERED: MAGNESIUM OXIDE 400 MG TABLET PO ONE (21:45)
[2022-07-05] MEDS ORDERED: MAGNESIUM SULFATE 1 GM/2 ML VIAL IVP ONE (22:30)
--- NOTE | 2022-07-05 23:51 | NUR ---
Mag IV replacement along with other IV medications well tolerated
[2022-07-06] VITALS: BP_SYST 148
== END 2022-07-06 | disposition home or self-care (01) ==
LOC: SED 20:21
DX: R56.9 Unspecified convulsions (principal); F41.9 Anxiety disorder, unspecified; E83.42 Hypomagnesemia; E11.9 Type 2 diabetes mellitus without complications; I10 Essential (primary) hypertension; F12.90 Cannabis use, unspecified, uncomplicated; Z88.0 Allergy status to penicillin; Z91.018 Allergy to other foods; Z79.899 Other long term (current) drug therapy
CPT/HCPCS: 99284; 96374; 96375; 80053; 83735; 85025; 36415; 96376; J1200; J2060; J3475; J2405; J2270

== ENCOUNTER 2022-07-10 19:03 | Emergency (ER) | payer OTHER ==
[~2022-07-10] VITALS: Ht 165.1 cm; Wt 99.8 kg
[2022-07-10 19:08] VITALS: BP_SYST 109
--- NOTE | 2022-07-10 19:11 | NUR ---
PATIENT STATES SHE HAS HAD LEFT ARM PAIN AND HEADACHE X 30 MINUTES.
--- NOTE | 2022-07-10 19:36 | NUR ---
PT FROM HOME BIBA WITH C/O LEGS CRAMPS, BURGOS, AND LEFT ARM PAIN. PT STATES SHE BELIEVES HER MAG IS LOW AND THATS WHY SHE IS EXPERIENCING CRAMPING. RATED PAIN 10/10.
[2022-07-10] MEDS ORDERED: MAGNESIUM SULFATE 50 ML IV ONE (20:30)
--- NOTE | 2022-07-10 20:30 | NUR ---
MD made aware of pt pain in arm and head. Rated 10/10.
[2022-07-10 20:32] LABS: BASOPHILS # (AUTO) 0.1 K/uL (0.0-0.2); BASOPHILS % (AUTO) 1.1 % (0.0-2.0); EOSINOPHILS # (AUTO) 0.2 K/uL (0.0-0.4); EOSINOPHILS % (AUTO) 1.5 % (0.0-4.0); HEMATOCRIT 33.1 % (36-48); HEMOGLOBIN 10.6 g/dL (12.0-16.0); LYMPHOCYTES # (AUTO) 3.7 K/uL (1.0-5.5); MEAN CORPUSCULAR HEMOGLOBIN 24 pg (27-31); MEAN CORPUSCULAR HGB CONC 32 % (32-36); MEAN CORPUSCULAR VOLUME 75 fL (79.0-98.0); MONOCYTES # (AUTO) 0.8 K/uL (0.0-1.0); MONOCYTES % (AUTO) 5.7 % (1.7-9.3); NEUTROPHILS # (AUTO) 8.9 K/uL (1.8-7.7); NEUTROPHILS % (AUTO) 64.7 % (40.0-70.0); PLATELET COUNT (AUTO) 460 K/uL (130-430); RED CELL DISTRIBUTION WIDTH 15.6 % (9.0-15.0); WHITE BLOOD COUNT (AUTO) 13.7 K/uL (4.8-10.8)
[2022-07-10 20:45] LABS: CALCIUM 9.1 mg/dL (8.4-11.0); CREATININE 1.08 mg/dL (0.55-1.30)
[2022-07-10 20:50] LABS: ALBUMIN 3.9 g/dL (3.4-4.8); TOTAL BILIRUBIN 0.2 mg/dL (0.0-1.0)
--- NOTE | 2022-07-10 21:16 | NUR ---
Dr. Brito at bedside with patient for evaluation.
[2022-07-10] MEDS ORDERED: DIPHENHYDRAMINE INJ 50 MG/ML VIAL IVP ONE ×2 (21:30→21:45)
[2022-07-10] MEDS ORDERED: MORPHINE 4 MG INJ. 4 MG/ML VIAL IVP ONE (21:30)
[2022-07-10 22:15] VITALS: BP_SYST 109
--- NOTE | 2022-07-10 22:15 | NUR ---
Patient given written and verbal discharge instructions and verbalizes understanding. ER Dr. Brito discussed with patient the results and treatment provided. Patient in stable condition. ID arm band removed. IV catheter removed intact and dressing applied, no active bleeding. Patient educated on pain management and to follow up with PMD. Pain Scale 0. Opportunity for questions provided and answered. Medication side effect fact sheet provided.
== END 2022-07-10 22:15 | disposition home or self-care (01) ==
LOC: SED 19:03
DX: M25.512 Pain in left shoulder (principal); R11.2 Nausea with vomiting, unspecified; E11.9 Type 2 diabetes mellitus without complications; I10 Essential (primary) hypertension; Z88.0 Allergy status to penicillin; Z91.018 Allergy to other foods; Z79.899 Other long term (current) drug therapy
CPT/HCPCS: 99284; 96365; 96375; 96366; 80053; 83735; 85025; 36415; 81025; J1200; J3475; J2270

== ENCOUNTER 2022-08-21 17:33 | Emergency (ER) | payer OTHER ==
[~2022-08-21] VITALS: Ht 165.1 cm; Wt 99.8 kg
[2022-08-21 18:13] VITALS: BP_SYST 107
[2022-08-21] MEDS ORDERED: MAGNESIUM SULFATE 50 ML IV ONE (18:15)
[2022-08-21] MEDS ORDERED: MAGNESIUM OXIDE 400 MG TABLET PO ONE (18:15)
== END 2022-08-21 18:22 | disposition left against medical advice (07) ==
LOC: SED 17:33
DX: E83.42 Hypomagnesemia (principal); E87.6 Hypokalemia; N18.9 Chronic kidney disease, unspecified; I10 Essential (primary) hypertension; E11.9 Type 2 diabetes mellitus without complications; Z88.0 Allergy status to penicillin; Z88.8 Allergy status to other drugs, medicaments and biological substances; Z79.899 Other long term (current) drug therapy
CPT/HCPCS: 99281

== ENCOUNTER 2023-02-07 14:24 | Inpatient (IN) | payer OTHER ==
[~2023-02-07] VITALS: Ht 165.1 cm; Wt 99.8 kg
[2023-02-07 14:28] VITALS: BP_SYST 118
[2023-02-07] MEDS ORDERED: NACL 0.9% 2,000 ML IV ONE (15:00)
[2023-02-07] MEDS ORDERED: MORPHINE 4 MG INJ. 4 MG/ML VIAL IVP ONE ×2 (15:00→16:30)
[2023-02-07] MEDS ORDERED: KCL 20 mEq in 100 mL (PREMIX) 100 ML IV ONE (15:00)
[2023-02-07] MEDS ORDERED: MAGNESIUM SULFATE 50 ML IV ONE (15:00)
[2023-02-07] MEDS ORDERED: MORPHINE 4 MG INJ. 4 MG/ML VIAL IVP PRN (15:15)
[2023-02-07 15:25] LABS: BASOPHILS # (AUTO) 0.1 K/uL (0.0-0.2); BASOPHILS % (AUTO) 0.7 % (0.0-2.0); EOSINOPHILS % (AUTO) 0.1 % (0.0-4.0); HEMATOCRIT 43.5 % (36-48); HEMOGLOBIN 14.6 g/dL (12.0-16.0); LYMPHOCYTES # (AUTO) 2.7 K/uL (1.0-5.5); LYMPHOCYTES % (AUTO) 16.1 % (20.5-51.5); MEAN CORPUSCULAR HEMOGLOBIN 29 pg (27-31); MEAN CORPUSCULAR HGB CONC 34 % (32-36); MEAN CORPUSCULAR VOLUME 87 fL (79.0-98.0); MONOCYTES # (AUTO) 0.5 K/uL (0.0-1.0); MONOCYTES % (AUTO) 3.1 % (1.7-9.3); NEUTROPHILS # (AUTO) 13.6 K/uL (1.8-7.7); PLATELET COUNT (AUTO) 381 K/uL (130-430); RED BLOOD CELL COUNT(AUTO) 4.98 MIL/uL (4.2-6.2); RED CELL DISTRIBUTION WIDTH 15.2 % (9.0-15.0)
[2023-02-07] MEDS ORDERED: ONDANSETRON HCL 4 MG/2 ML VIAL ONE (15:25)
[2023-02-07] MEDS: ONDANSETRON HCL 4 MG/2 ML VIAL IVP PRN ×2 (15:26→20:09)
[2023-02-07] MEDS ORDERED: DIPHENHYDRAMINE INJ 50 MG/ML VIAL IVP ONE (15:30)
[2023-02-07] MEDS ORDERED: SITA100T11 PO (15:34)
[2023-02-07 15:40] LABS: CALCIUM 9.4 mg/dL (8.4-11.0); CREATININE 1.11 mg/dL (0.55-1.30)
[2023-02-07] MEDS ORDERED: FAMOTIDINE PF 20 MG/2 ML VIAL IVP ONE ×2 (15:45→16:00)
[2023-02-07 15:54] LABS: ALBUMIN 3.9 g/dL (3.4-4.8); TOTAL BILIRUBIN 0.7 mg/dL (0.0-1.0)
[2023-02-07] MEDS ORDERED: POTASSIUM CHLORIDE 20 MEQ, LIDOCAINE JECT 2% PF 100 MG 50 MG in NS 250 ML IV ONE (16:00)
[2023-02-07 17:05] VITALS: BP_SYST 121
[2023-02-07 17:19] VITALS: BP_SYST 121
[2023-02-07] MEDS ORDERED: DEXTROSE 50% JECT 50 ML DISP.SYRIN IVP PRN (17:45)
[2023-02-07] MEDS ORDERED: metroNIDAZOLE 500 mg/NS 100 ML IV ONE (17:45)
[2023-02-07] MEDS ORDERED: TEMAZEPAM 15 MG CAPSULE PO PRN (17:45)
[2023-02-07] MEDS ORDERED: ACETAMINOPHEN 325 MG TABLET PO PRN (17:45)
[2023-02-07] MEDS ORDERED: INSULIN REGULAR, HUMAN 100 UNITS/ML, 3 ML VIAL (humuLIN R) SUBCUT PRN (17:45)
[2023-02-07] MEDS: LR 1,000 ML IV SCH (18:12)
[2023-02-07] MEDS ORDERED: DIPHENHYDRAMINE INJ 50 MG/ML VIAL ONE (19:59)
[2023-02-07 20:00] VITALS: BP_SYST 124
[2023-02-07] MEDS: DIPHENHYDRAMINE INJ 50 MG/ML VIAL IVP PRN (20:09)
[2023-02-07] MEDS: MORPHINE 4 MG INJ. 4 MG/ML VIAL IVP PRN (20:11)
[2023-02-07] MEDS: POTASSIUM CHLORIDE 10 MEQ TAB.PRT.SR PO SCH (20:22)
[2023-02-07] MEDS: CYCLOBENZAPRINE HCL 10 MG TABLET (FLEXERIL) PO SCH (20:22)
[2023-02-07] MEDS ORDERED: aMILoride HCL 5 MG TABLET PO SCH (21:00)
[2023-02-07] MEDS: metroNIDAZOLE 500 mg/NS 100 ML IV SCH (22:23)
[2023-02-07 23:18] LABS: BILIRUBIN,URINE NEGATIVE (NEGATIVE); BLOOD, URINE NEGATIVE (NEGATIVE); CLARITY/URINE CLEAR (CLEAR); COLOR,URINE YELLOW (YELLOW); GLUCOSE,URINE NEGATIVE (NEGATIVE); KETONES,URINE NEGATIVE (NEGATIVE); LEUKOCYTE ESTERASE ,URINE NEGATIVE (NEGATIVE); NITRITE, URINE NEGATIVE (NEGATIVE); PROTEIN URINE NEGATIVE (NEGATIVE); UROBILINOGEN,URINE 0.2 (0.2-1.0)
[2023-02-08] MEDS: MORPHINE 4 MG INJ. 4 MG/ML VIAL IVP PRN ×7 (00:09→23:57)
[2023-02-08 00:23] VITALS: BP_SYST 112
[2023-02-08] MEDS: DIPHENHYDRAMINE INJ 50 MG/ML VIAL IVP PRN ×4 (02:10→20:14)
[2023-02-08] MEDS: ONDANSETRON HCL 4 MG/2 ML VIAL IVP PRN ×7 (04:01→23:56)
[2023-02-08] MEDS: LR 1,000 ML IV SCH ×3 (05:18→17:26)
[2023-02-08] MEDS: metroNIDAZOLE 500 mg/NS 100 ML IV SCH ×3 (05:44→21:43)
[2023-02-08 06:15] LABS: BASOPHILS # (AUTO) 0.1 K/uL (0.0-0.2); EOSINOPHILS # (AUTO) 0.2 K/uL (0.0-0.4); EOSINOPHILS % (AUTO) 1.6 % (0.0-4.0); HEMATOCRIT 40.3 % (36-48); HEMOGLOBIN 13.1 g/dL (12.0-16.0); LYMPHOCYTES # (AUTO) 4.2 K/uL (1.0-5.5); LYMPHOCYTES % (AUTO) 34.5 % (20.5-51.5); MEAN CORPUSCULAR HEMOGLOBIN 29 pg (27-31); MEAN CORPUSCULAR HGB CONC 33 % (32-36); MEAN CORPUSCULAR VOLUME 89 fL (79.0-98.0); MONOCYTES # (AUTO) 0.7 K/uL (0.0-1.0); MONOCYTES % (AUTO) 6.1 % (1.7-9.3); NEUTROPHILS # (AUTO) 6.9 K/uL (1.8-7.7); NEUTROPHILS % (AUTO) 56.8 % (40.0-70.0); PLATELET COUNT (AUTO) 297 K/uL (130-430); RED BLOOD CELL COUNT(AUTO) 4.55 MIL/uL (4.2-6.2); RED CELL DISTRIBUTION WIDTH 15.4 % (9.0-15.0); WHITE BLOOD COUNT (AUTO) 12.2 K/uL (4.8-10.8)
[2023-02-08 06:22] LABS: ALBUMIN 3.4 g/dL (3.4-4.8); CALCIUM 8.4 mg/dL (8.4-11.0); CREATININE 1.16 mg/dL (0.55-1.30); FREE T4 (FREE THYROXINE) 1.1 ng/dL (0.6-1.6); THYROID STIMULATING HORMONE 3.99 uIu/mL (0.34-4.82); TOTAL BILIRUBIN 0.8 mg/dL (0.0-1.0)
[2023-02-08 07:47] VITALS: BP_SYST 105
[2023-02-08] MEDS: SPIRONOLACTONE 50 MG TABLET (ALDACTONE) PO SCH (08:20)
[2023-02-08] MEDS: PANTOPRAZOLE SODIUM 40 MG TAB PO SCH (08:20)
[2023-02-08] MEDS: CHOLECALCIFEROL (VITAMIN D3) 5,000 UNIT TABLET PO SCH (08:20)
[2023-02-08] MEDS: DULoxetine HCL 30 MG CAPSULE.DR (CYMBALTA) PO SCH (08:20)
[2023-02-08] MEDS: CYCLOBENZAPRINE HCL 10 MG TABLET (FLEXERIL) PO SCH ×2 (08:21→20:27)
[2023-02-08] MEDS: POTASSIUM CHLORIDE 10 MEQ TAB.PRT.SR PO SCH ×4 (08:21→20:27)
[2023-02-08] MEDS: AMILORIDE 5 MG TABLET PO SCH ×2 (08:21→20:28)
[2023-02-08] MEDS ORDERED: CHOLECALCIFEROL (VITAMIN D-3) 400 UNIT TABLET PO SCH (09:00)
[2023-02-08 12:53] VITALS: BP_SYST 109
[2023-02-08 16:38] VITALS: BP_SYST 106
[2023-02-08] MEDS ORDERED: BISACODYL 5 MG TABLET.DR (DULCOLAX) PO ONE (17:00)
[2023-02-08] MEDS ORDERED: MAGNESIUM SULFATE 50 ML IV ONE (17:00)
[2023-02-08] MEDS ORDERED: GOLYTELY / COLYTE SOLUTION 4 LITERS PO ONE (18:00)
[2023-02-08 20:00] VITALS: BP_SYST 134
[2023-02-09 00:12] VITALS: BP_SYST 114
[2023-02-09] MEDS: DIPHENHYDRAMINE INJ 50 MG/ML VIAL IVP PRN ×2 (02:41→18:10)
[2023-02-09] MEDS: LR 1,000 ML IV SCH ×2 (02:46→08:00)
[2023-02-09 05:21] LABS: BASOPHILS # (AUTO) 0.1 K/uL (0.0-0.2); BASOPHILS % (AUTO) 0.9 % (0.0-2.0); EOSINOPHILS # (AUTO) 0.2 K/uL (0.0-0.4); EOSINOPHILS % (AUTO) 2.2 % (0.0-4.0); HEMOGLOBIN 12.7 g/dL (12.0-16.0); LYMPHOCYTES % (AUTO) 27.4 % (20.5-51.5); MEAN CORPUSCULAR HEMOGLOBIN 29 pg (27-31); MEAN CORPUSCULAR HGB CONC 33 % (32-36); MEAN CORPUSCULAR VOLUME 88 fL (79.0-98.0); MONOCYTES # (AUTO) 0.7 K/uL (0.0-1.0); MONOCYTES % (AUTO) 6.5 % (1.7-9.3); NEUTROPHILS # (AUTO) 6.8 K/uL (1.8-7.7); PLATELET COUNT (AUTO) 281 K/uL (130-430); RED BLOOD CELL COUNT(AUTO) 4.32 MIL/uL (4.2-6.2); RED CELL DISTRIBUTION WIDTH 15.1 % (9.0-15.0); WHITE BLOOD COUNT (AUTO) 10.8 K/uL (4.8-10.8)
[2023-02-09] MEDS: ONDANSETRON HCL 4 MG/2 ML VIAL IVP PRN ×4 (05:22→18:11)
[2023-02-09] MEDS: metroNIDAZOLE 500 mg/NS 100 ML IV SCH ×2 (05:24→14:02)
[2023-02-09] MEDS: MORPHINE 4 MG INJ. 4 MG/ML VIAL IVP PRN ×4 (05:24→18:10)
[2023-02-09 06:37] LABS: INR 1.1 (0.8-1.2); PROTHROMBIN TIME 10.9 SECS (9.5-12.5)
[2023-02-09] MEDS ORDERED: MEPERIDINE 100 MG INJ. 100 MG/ML VIAL ONE ×2 (07:46→08:04)
[2023-02-09] MEDS ORDERED: MIDAZOLAM HCL 5 MG/5 ML VIAL ONE ×2 (07:46→08:05)
[2023-02-09] MEDS ORDERED: SIMETHICONE 40 MG/0.6 ML ML ONE (07:47)
[2023-02-09] MEDS ORDERED: DIPHENHYDRAMINE INJ 50 MG/ML VIAL ONE (07:58)
[2023-02-09 07:59] LABS: ANION GAP 9 (5-15); CALCIUM 8.7 mg/dL (8.4-11.0); CHLORIDE 101 mmol/L (98-107); CREATININE 1.16 mg/dL (0.55-1.30); GFR AFRICAN AMERICAN 62 mL/min (>90); GLUCOSE 90 mg/dL (70-99); UREA NITROGEN, BLOOD 9 mg/dL (8-21)
[2023-02-09 08:00] VITALS: BP_SYST 127
[2023-02-09] MEDS: AMILORIDE 5 MG TABLET PO SCH (09:00)
[2023-02-09] MEDS: POTASSIUM CHLORIDE 10 MEQ TAB.PRT.SR PO SCH ×3 (09:07→16:40)
[2023-02-09] MEDS: CYCLOBENZAPRINE HCL 10 MG TABLET (FLEXERIL) PO SCH (09:07)
[2023-02-09] MEDS: SPIRONOLACTONE 50 MG TABLET (ALDACTONE) PO SCH (09:08)
[2023-02-09] MEDS: PANTOPRAZOLE SODIUM 40 MG TAB PO SCH (09:08)
[2023-02-09] MEDS: CHOLECALCIFEROL (VITAMIN D3) 5,000 UNIT TABLET PO SCH (09:08)
[2023-02-09] MEDS: DULoxetine HCL 30 MG CAPSULE.DR (CYMBALTA) PO SCH (09:08)
[2023-02-09 12:00] VITALS: BP_SYST 124
[2023-02-09] MEDS ORDERED: MAGNESIUM SULFATE 4 GM in D5W 250 ML IV ONE (15:00)
[2023-02-09] MEDS ORDERED: DOXY100C5 PO (15:45)
[2023-02-09] MEDS ORDERED: METR-343 PO (15:48)
[2023-02-09] MEDS ORDERED: LACT1CAP89 PO (15:55)
[2023-02-09 17:31] VITALS: BP_SYST 126
== END 2023-02-09 19:27 | disposition home or self-care (01) | DRG 392 ==
LOC: SED 14:24 → SMU 15:13
PROVIDERS: ADMIT Internal Medicine; ATTEND Internal Medicine
PROC: 0DBP8ZX Excision of Rectum, Via Natural or Artificial Opening Endoscopic, Diagnostic (ICD-10-PCS; principal; 2023-02-09 07:30)
DX: K52.9 Noninfective gastroenteritis and colitis, unspecified (principal); R65.10 Systemic inflammatory response syndrome (SIRS) of non-infectious origin without acute organ dysfunction; K62.89 Other specified diseases of anus and rectum; E87.6 Hypokalemia; K64.4 Residual hemorrhoidal skin tags; G89.4 Chronic pain syndrome; M79.7 Fibromyalgia; E11.9 Type 2 diabetes mellitus without complications; I10 Essential (primary) hypertension; E03.9 Hypothyroidism, unspecified; J45.909 Unspecified asthma, uncomplicated; F32.A Depression, unspecified; M10.9 Gout, unspecified; F41.9 Anxiety disorder, unspecified; E66.9 Obesity, unspecified; E86.0 Dehydration; Z88.0 Allergy status to penicillin; Z88.8 Allergy status to other drugs, medicaments and biological substances; Z79.899 Other long term (current) drug therapy; Z79.891 Long term (current) use of opiate analgesic; Z80.0 Family history of malignant neoplasm of digestive organs; Z90.710 Acquired absence of both cervix and uterus; Z68.36 Body mass index [BMI] 36.0-36.9, adult
CPT/HCPCS: 36415; 45380; 76376; 80048; 80053; 81003; 82306; 83037; 83605; 83735; 84439; 84443; 85025; 85610-TC; 87040; 87045-TC; 87046; 87086; 88305; 89055; 96365; 96366; 96375; 99285; J1200; J1956; J2175; J2250; J2270; J2405; J3475; J3480; J3490; J7050; J7060

== ENCOUNTER 2023-05-19 16:53 | Emergency (ER) | payer OTHER ==
[~2023-05-19] VITALS: Ht 165.1 cm; Wt 103.0 kg
[~2023-05-19 16:53] MED LIST changes: +DOXY100C5 PO; +LACT1CAP89 PO; +METR-343 PO; +SITA100T11 PO
[2023-05-19 17:20] VITALS: BP_SYST 133; PULSE 89; RESP 18; TEMP 98.1; O2SAT 100
[2023-05-19] MEDS ORDERED: HYDROmorphone 1 MG/ML INJ. CARTRIDGE IVP ONE (18:00)
[2023-05-19] MEDS ORDERED: ONDANSETRON HCL 4 MG/2 ML VIAL IVP ONE (18:00)
[2023-05-19 19:01] LABS: BASOPHILS # (AUTO) 0.1 K/uL (0.0-0.2); BASOPHILS % (AUTO) 0.8 % (0.0-2.0); EOSINOPHILS # (AUTO) 0.3 K/uL (0.0-0.4); HEMATOCRIT 41.6 % (36-48); HEMOGLOBIN 13.7 g/dL (12.0-16.0); LYMPHOCYTES # (AUTO) 3.7 K/uL (1.0-5.5); LYMPHOCYTES % (AUTO) 27.2 % (20.5-51.5); MEAN CORPUSCULAR HEMOGLOBIN 30 pg (27-31); MEAN CORPUSCULAR HGB CONC 33 % (32-36); MEAN CORPUSCULAR VOLUME 90 fL (79.0-98.0); MONOCYTES # (AUTO) 0.8 K/uL (0.0-1.0); MONOCYTES % (AUTO) 5.8 % (1.7-9.3); NEUTROPHILS # (AUTO) 8.8 K/uL (1.8-7.7); NEUTROPHILS % (AUTO) 64.2 % (40.0-70.0); PLATELET COUNT (AUTO) 359 K/uL (130-430); RED BLOOD CELL COUNT(AUTO) 4.63 MIL/uL (4.2-6.2); RED CELL DISTRIBUTION WIDTH 13.1 % (9.0-15.0); WHITE BLOOD COUNT (AUTO) 13.7 K/uL (4.8-10.8)
[2023-05-19 19:23] LABS: ANION GAP 9 (5-15); CALCIUM 8.6 mg/dL (8.4-11.0); CARBON DIOXIDE 28 mmol/L (23-29); CHLORIDE 101 mmol/L (98-107); CREATININE 0.97 mg/dL (0.55-1.30); GFR AFRICAN AMERICAN 76 mL/min (>90); GFR NON AFRICAN-AMERICAN 63 mL/min (>90); GLUCOSE 120 mg/dL (74-106); POTASSIUM 3.6 mmol/L (3.5-5.1); SODIUM SERUM 138 mmol/L (136-145); UREA NITROGEN, BLOOD 17 mg/dL (8-21)
[2023-05-19 19:30] LABS: ALANINE AMINOTRANSFERASE 17 U/L (12-78); ALBUMIN 3.6 g/dL (3.4-4.8); ASPARTATE AMINOTRANSFERASE 12 U/L (10-37); LIPASE 47 U/L (73-393); TOTAL BILIRUBIN 0.6 mg/dL (0.0-1.0)
[2023-05-19] MEDS ORDERED: KETOROLAC TROMETHAMINE 15 MG VIAL IVP ONE (20:00)
[2023-05-19] MEDS ORDERED: KETOROLAC TROMETHAMINE 30 MG VIAL ONE (21:02)
[2023-05-19 21:25] LABS: BILIRUBIN,URINE NEGATIVE (NEGATIVE); BLOOD, URINE NEGATIVE (NEGATIVE); CLARITY/URINE Clear (CLEAR); COLOR,URINE YELLOW (YELLOW); GLUCOSE,URINE NEGATIVE (NEGATIVE); KETONES,URINE NEGATIVE (NEGATIVE); LEUKOCYTE ESTERASE ,URINE NEGATIVE (NEGATIVE); NITRITE, URINE NEGATIVE (NEGATIVE); PROTEIN URINE NEGATIVE (NEGATIVE); UROBILINOGEN,URINE 0.2 (0.2-1.0)
[2023-05-19 22:25] VITALS: BP_SYST 133; PULSE 89; RESP 18; TEMP 98.1; O2SAT 100
== END 2023-05-19 22:22 | disposition home or self-care (01) ==
LOC: SED 16:53
DX: N28.1 Cyst of kidney, acquired (principal); R10.9 Unspecified abdominal pain; R11.2 Nausea with vomiting, unspecified; M54.50 Low back pain, unspecified; E11.9 Type 2 diabetes mellitus without complications; I10 Essential (primary) hypertension; Z88.0 Allergy status to penicillin; Z91.018 Allergy to other foods; Z79.899 Other long term (current) drug therapy
CPT/HCPCS: 99285; 74176; 96374; 76705; 96375; 80053; 83690; 83735; 85025; 84484; 36415; 93005; 76376; 81003; J1885; J2405; J1170

== ENCOUNTER 2023-07-16 16:24 | Emergency (ER) | payer OTHER ==
[~2023-07-16] VITALS: Ht 165.1 cm; Wt 97.5 kg
[2023-07-16 16:34] VITALS: BP_SYST 103; PULSE 106; RESP 18; TEMP 98.3; O2SAT 99
[2023-07-16] MEDS ORDERED: HYDROmorphone 1 MG/ML INJ. CARTRIDGE IVP ONE ×2 (20:30→23:30)
[2023-07-16] MEDS ORDERED: DIPHENHYDRAMINE INJ 50 MG/ML VIAL IVP ONE ×2 (20:30→23:30)
[2023-07-16 20:44] LABS: BASOPHILS # (AUTO) 0.2 K/uL (0.0-0.2); BASOPHILS % (AUTO) 1.4 % (0.0-2.0); EOSINOPHILS # (AUTO) 0.3 K/uL (0.0-0.4); HEMATOCRIT 38.8 % (36-48); HEMOGLOBIN 12.5 g/dL (12.0-16.0); LYMPHOCYTES # (AUTO) 3.8 K/uL (1.0-5.5); LYMPHOCYTES % (AUTO) 25.1 % (20.5-51.5); MEAN CORPUSCULAR HEMOGLOBIN 28 pg (27-31); MEAN CORPUSCULAR HGB CONC 32 % (32-36); MEAN CORPUSCULAR VOLUME 88 fL (79.0-98.0); MONOCYTES # (AUTO) 0.9 K/uL (0.0-1.0); MONOCYTES % (AUTO) 6.1 % (1.7-9.3); NEUTROPHILS % (AUTO) 65.4 % (40.0-70.0); PLATELET COUNT (AUTO) 403 K/uL (130-430); RED BLOOD CELL COUNT(AUTO) 4.43 MIL/uL (4.2-6.2); RED CELL DISTRIBUTION WIDTH 13.3 % (9.0-15.0); WHITE BLOOD COUNT (AUTO) 15.2 K/uL (4.8-10.8)
[2023-07-16 21:03] LABS: CALCIUM 8.2 mg/dL (8.4-11.0); CREATININE 0.88 mg/dL (0.55-1.30); POTASSIUM 3.5 mmol/L (3.5-5.1)
[2023-07-16 21:07] LABS: ALBUMIN 3.1 g/dL (3.4-4.8); TOTAL BILIRUBIN 0.2 mg/dL (0.0-1.0); TOTAL PROTEIN, SERUM 6.2 g/dL (6.4-8.3)
[2023-07-16] MEDS ORDERED: POTASSIUM CHLORIDE 20 MEQ TAB.PRT.SR PO ONE (21:45)
[2023-07-16] MEDS ORDERED: MAGNESIUM SULFATE 1 GM/2 ML VIAL IVP ONE (21:45)
[2023-07-16] MEDS ORDERED: MAGNESIUM SULFATE 1 GM/2 ML VIAL ONE (22:09)
[2023-07-17 00:44] VITALS: BP_SYST 127; PULSE 87; RESP 16; TEMP 98; O2SAT 93
== END 2023-07-17 00:44 | disposition home or self-care (01) ==
LOC: SED 16:24
DX: T78.40XA Allergy, unspecified, initial encounter (principal); R21 Rash and other nonspecific skin eruption; Z88.0 Allergy status to penicillin; Z91.018 Allergy to other foods; E11.9 Type 2 diabetes mellitus without complications; I10 Essential (primary) hypertension; Z79.899 Other long term (current) drug therapy; X58.XXXA Exposure to other specified factors, initial encounter
CPT/HCPCS: 99285; 96374; 96375; 80053; 82962; 83735; 85025; 36415; 96376; J1200; J3475; J1170

== ENCOUNTER 2023-09-15 16:29 | Emergency (ER) | payer OTHER ==
[~2023-09-15] VITALS: Ht 165.1 cm; Wt 97.1 kg
[2023-09-15 16:39] VITALS: BP_SYST 131; PULSE 100; RESP 20; TEMP 97.9; O2SAT 98
[2023-09-15] MEDS ORDERED: MORPHINE 4 MG INJ. 4 MG/ML VIAL IM ONE (17:00)
[2023-09-15 17:51] LABS: BASOPHILS # (AUTO) 0.2 K/uL (0.0-0.2); BASOPHILS % (AUTO) 0.9 % (0.0-2.0); EOSINOPHILS # (AUTO) 0.2 K/uL (0.0-0.4); HEMATOCRIT 39.9 % (36-48); LYMPHOCYTES # (AUTO) 3.1 K/uL (1.0-5.5); LYMPHOCYTES % (AUTO) 16.8 % (20.5-51.5); MEAN CORPUSCULAR HEMOGLOBIN 27 pg (27-31); MEAN CORPUSCULAR HGB CONC 33 % (32-36); MEAN CORPUSCULAR VOLUME 83 fL (79.0-98.0); MONOCYTES # (AUTO) 0.8 K/uL (0.0-1.0); MONOCYTES % (AUTO) 4.3 % (1.7-9.3); NEUTROPHILS # (AUTO) 14.3 K/uL (1.8-7.7); PLATELET COUNT (AUTO) 445 K/uL (130-430); RED BLOOD CELL COUNT(AUTO) 4.82 MIL/uL (4.2-6.2); RED CELL DISTRIBUTION WIDTH 14.4 % (9.0-15.0); WHITE BLOOD COUNT (AUTO) 18.6 K/uL (4.8-10.8)
[2023-09-15 18:26] LABS: CALCIUM 8.8 mg/dL (8.4-11.0); CREATININE 1.02 mg/dL (0.55-1.30); POTASSIUM 3.8 mmol/L (3.5-5.1); TOTAL BILIRUBIN 0.8 mg/dL (0.0-1.0); TOTAL PROTEIN, SERUM 7.8 g/dL (6.4-8.3)
[2023-09-15] MEDS ORDERED: MORPHINE 4 MG INJ. 4 MG/ML VIAL IVP ONE (18:45)
[2023-09-15] MEDS ORDERED: LORATADINE 10 MG TABLET PO ONE (19:15)
[2023-09-15] MEDS ORDERED: HYDROmorphone 1 MG/ML INJ. CARTRIDGE IM ONE (21:15)
[2023-09-15 22:06] LABS: BILIRUBIN,URINE NEGATIVE (NEGATIVE); BLOOD, URINE NEGATIVE (NEGATIVE); CLARITY/URINE SL CLOUDY (CLEAR); COLOR,URINE YELLOW (YELLOW); GLUCOSE,URINE NEGATIVE (NEGATIVE); KETONES,URINE NEGATIVE (NEGATIVE); LEUKOCYTE ESTERASE ,URINE 1+ (NEGATIVE); NITRITE, URINE NEGATIVE (NEGATIVE); PH,URINE 7.5 (5.0-8.0); PROTEIN URINE NEGATIVE (NEGATIVE); UROBILINOGEN,URINE 0.2 (0.2-1.0)
[2023-09-15 22:14] VITALS: BP_SYST 129; PULSE 111; RESP 20; TEMP 98; O2SAT 95
[2023-09-15 22:15] LABS: BACTERIA,URINE MODERATE /HPF (None Seen); RBC,URINE 0-3 /HPF (0-3)
== END 2023-09-15 22:14 | disposition home or self-care (01) ==
LOC: SED 16:29
DX: M79.10 Myalgia, unspecified site (principal); D72.829 Elevated white blood cell count, unspecified; R25.2 Cramp and spasm; E11.9 Type 2 diabetes mellitus without complications; I10 Essential (primary) hypertension; Z88.0 Allergy status to penicillin; Z91.018 Allergy to other foods; Z87.441 Personal history of nephrotic syndrome; Z79.899 Other long term (current) drug therapy
CPT/HCPCS: 99285; 96374; 72192; 80053; 81001; 83735; 85025; 87086; 36415; 76376; 96376; 96372; 81000; 81015; J1170; J2270

== ENCOUNTER 2023-12-15 12:44 | Inpatient (IN) | payer OTHER ==
[~2023-12-15] VITALS: Ht 162.6 cm; Wt 107.0 kg
[2023-12-15 12:59] VITALS: BP_SYST 137; PULSE 103; RESP 20; TEMP 98.1; O2SAT 96
[2023-12-15 13:50] LABS: BASOPHILS % (AUTO) 0.3 % (0.0-2.0); EOSINOPHILS % (AUTO) 0.2 % (0.0-4.0); HEMATOCRIT 40.5 % (36-48); HEMOGLOBIN 13.5 g/dL (12.0-16.0); LYMPHOCYTES # (AUTO) 2.2 K/uL (1.0-5.5); LYMPHOCYTES % (AUTO) 12.7 % (20.5-51.5); MEAN CORPUSCULAR HEMOGLOBIN 26 pg (27-31); MEAN CORPUSCULAR HGB CONC 34 % (32-36); MEAN CORPUSCULAR VOLUME 78 fL (79.0-98.0); MONOCYTES # (AUTO) 0.7 K/uL (0.0-1.0); MONOCYTES % (AUTO) 3.7 % (1.7-9.3); NEUTROPHILS # (AUTO) 14.6 K/uL (1.8-7.7); NEUTROPHILS % (AUTO) 83.1 % (40.0-70.0); PLATELET COUNT (AUTO) 403 K/uL (130-430); RED BLOOD CELL COUNT(AUTO) 5.17 MIL/uL (4.2-6.2); RED CELL DISTRIBUTION WIDTH 15.2 % (9.0-15.0); WHITE BLOOD COUNT (AUTO) 17.6 K/uL (4.8-10.8)
[2023-12-15] MEDS: NACL 0.9% 1,000 ML IV ONE (13:50)
[2023-12-15] MEDS: DIPHENHYDRAMINE INJ 50 MG/ML VIAL IVP ONE (13:50)
[2023-12-15] MEDS: MORPHINE 4 MG INJ. 4 MG/ML VIAL IVP ONE (13:51)
[2023-12-15 13:58] LABS: ANION GAP 14 (5-15); CALCIUM 8.4 mg/dL (8.4-11.0); CARBON DIOXIDE 22 mmol/L (23-29); CHLORIDE 101 mmol/L (98-107); CREATININE 1.18 mg/dL (0.55-1.30); GFR AFRICAN AMERICAN 61 mL/min (>90); GLUCOSE 130 mg/dL (74-106); POTASSIUM 3.3 mmol/L (3.5-5.1); SODIUM SERUM 137 mmol/L (136-145); UREA NITROGEN, BLOOD 21 mg/dL (8-21)
[2023-12-15 14:01] LABS: INR 1.1 (0.8-1.2); PROTHROMBIN TIME 11.4 SECS (9.5-12.5)
[2023-12-15 14:05] LABS: ALANINE AMINOTRANSFERASE 65 U/L (12-78); ALBUMIN 3.2 g/dL (3.4-4.8); ASPARTATE AMINOTRANSFERASE 31 U/L (10-37); BILIRUBIN,DIRECT 0.2 mg/dL (0.0-0.3); TOTAL BILIRUBIN 0.9 mg/dL (0.0-1.0); TOTAL PROTEIN, SERUM 6.8 g/dL (6.4-8.3)
[2023-12-15 14:06] LABS: GFR NON AFRICAN-AMERICAN 50 mL/min (>90)
[2023-12-15 14:15] LABS: INFLUENZA TYPE A Negative (NEGATIVE); INFLUENZA TYPE B NEGATIVE (NEGATIVE)
[2023-12-15] MEDS ORDERED: IBUPROFEN 800 MG TABLET ONE (15:19)
[2023-12-15] MEDS: IBUPROFEN 800 MG TABLET PO ONE (15:21)
[2023-12-15] MEDS ORDERED: MORPHINE 2 MG/ML INJ. SYRINGE IVP PRN (16:00)
[2023-12-15] MEDS: ONDANSETRON HCL 4 MG/2 ML VIAL IVP PRN (16:36)
[2023-12-15 16:45] VITALS: BP_SYST 152; PULSE 115; RESP 20; TEMP 98.4; O2SAT 97
[2023-12-15] MEDS: DIPHENHYDRAMINE INJ 50 MG/ML VIAL IVP PRN (18:02)
[2023-12-15] MEDS: MORPHINE 2 MG/ML INJ. SYRINGE IVP PRN (18:03)
[2023-12-15] MEDS: LR 1,000 ML IV SCH (18:06)
[2023-12-15] MEDS ORDERED: KCL 40 mEq in 100 mL (PREMIX) 100 ML IV ONE (18:45)
[2023-12-15] MEDS ORDERED: INSULIN REGULAR, HUMAN 100 UNITS/ML, 3 ML VIAL (humuLIN R) SUBCUT PRN (19:15)
[2023-12-15] MEDS ORDERED: COLCHICINE 0.6 MG TABLET PO PRN (19:15)
[2023-12-15] MEDS ORDERED: IPRATROPIUM/ALBUTEROL SULFATE 120 PUFFS/4 GM INH INH PRN (19:15)
[2023-12-15] MEDS ORDERED: DEXTROSE 50% JECT 50 ML DISP.SYRIN IVP PRN (19:15)
[2023-12-15] MEDS ORDERED: IPRATROPIUM/ALBUTEROL SULFATE 3 ML AMPUL.NEB (DUONEB) INH PRN (19:45)
[2023-12-15 20:00] VITALS: BP_SYST 130; PULSE 98; RESP 18; TEMP 97.7; O2SAT 97
[2023-12-15] MEDS: FAMOTIDINE PF 20 MG/2 ML VIAL IVP SCH (21:00)
[2023-12-15] MEDS: AMILORIDE 5 MG TABLET PO SCH (21:00)
[2023-12-15] MEDS: POTASSIUM CHLORIDE 20 mEq in 100 mL (PREMIX) 100 ML x 2 doses IV SCH (21:00)
[2023-12-15] MEDS ORDERED: aMILoride HCL 5 MG TABLET PO SCH (21:00)
[2023-12-15] MEDS: MORPHINE SULFATE 15 MG TABLET.ER PO SCH (21:01)
[2023-12-15] MEDS: ZOLPIDEM TARTRATE 5 MG TABLET PO SCH (21:01)
[2023-12-15] MEDS: POTASSIUM CHLORIDE 20 MEQ TABLET.ER PO SCH (21:01)
[2023-12-16] VITALS (8 sets, daily range): BP systolic 112–152; PULSE 84–115; RESP 18; TEMP 96.3–98.9; O2SAT 97–99
[2023-12-16] MEDS: MAGNESIUM SULFATE IN WATER 100 ML IV ONE (00:55)
[2023-12-16 07:40] LABS: BASOPHILS # (AUTO) 0.2 K/uL (0.0-0.2); BASOPHILS % (AUTO) 1.2 % (0.0-2.0); EOSINOPHILS # (AUTO) 0.2 K/uL (0.0-0.4); EOSINOPHILS % (AUTO) 1.3 % (0.0-4.0); HEMATOCRIT 36.2 % (36-48); HEMOGLOBIN 11.6 g/dL (12.0-16.0); LYMPHOCYTES # (AUTO) 3.1 K/uL (1.0-5.5); LYMPHOCYTES % (AUTO) 21.9 % (20.5-51.5); MEAN CORPUSCULAR HEMOGLOBIN 25 pg (27-31); MEAN CORPUSCULAR HGB CONC 32 % (32-36); MEAN CORPUSCULAR VOLUME 79 fL (79.0-98.0); MONOCYTES # (AUTO) 0.9 K/uL (0.0-1.0); MONOCYTES % (AUTO) 6.2 % (1.7-9.3); NEUTROPHILS # (AUTO) 9.8 K/uL (1.8-7.7); NEUTROPHILS % (AUTO) 69.4 % (40.0-70.0); PLATELET COUNT (AUTO) 311 K/uL (130-430); RED BLOOD CELL COUNT(AUTO) 4.57 MIL/uL (4.2-6.2); RED CELL DISTRIBUTION WIDTH 15.5 % (9.0-15.0); WHITE BLOOD COUNT (AUTO) 14.1 K/uL (4.8-10.8)
[2023-12-16 07:55] LABS: HEMOGLOBIN A1C 7.08 % (<5.7)
[2023-12-16 08:09] LABS: ALBUMIN 3.4 g/dL (3.4-4.8); CALCIUM 8.7 mg/dL (8.4-11.0); CREATININE 1.21 mg/dL (0.55-1.30); FREE T4 (FREE THYROXINE) 1.4 ng/dL (0.6-1.6); POTASSIUM 3.4 mmol/L (3.5-5.1); THYROID STIMULATING HORMONE 1.66 uIu/mL (0.34-4.82); TOTAL BILIRUBIN 0.7 mg/dL (0.0-1.0); TOTAL PROTEIN, SERUM 6.9 g/dL (6.4-8.3)
[2023-12-16] MEDS: DULoxetine HCL 30 MG CAPSULE.DR (CYMBALTA) PO SCH (08:48)
[2023-12-16] MEDS: SPIRONOLACTONE 50 MG TABLET (ALDACTONE) PO SCH (08:48)
[2023-12-16] MEDS: CHOLECALCIFEROL (VITAMIN D3) 5,000 UNIT TABLET PO SCH (08:48)
[2023-12-16] MEDS ORDERED: SACC250C3 PO (13:12)
[2023-12-16] MEDS ORDERED: POTA-198 PO (13:12)
[2023-12-16] MEDS ORDERED: LIP10 PO (13:13)
[2023-12-16] MEDS: KCL 20 mEq in 100 mL (PREMIX) 100 ML IV ONE (14:36)
[2023-12-16] MEDS: IPRATROPIUM/ALBUTEROL SULFATE 3 ML AMPUL.NEB (DUONEB) INH ONE (18:29)
[2023-12-16] MEDS ORDERED: IPRATROPIUM/ALBUTEROL SULFATE 3 ML AMPUL.NEB (DUONEB) INH PRN (18:30)
[2023-12-16 21:13] LABS: BILIRUBIN,URINE 1+ (NEGATIVE); BLOOD, URINE NEGATIVE (NEGATIVE); CLARITY/URINE SL CLOUDY (CLEAR); COLOR,URINE YELLOW (YELLOW); GLUCOSE,URINE NEGATIVE (NEGATIVE); KETONES,URINE TRACE (NEGATIVE); LEUKOCYTE ESTERASE ,URINE TRACE (NEGATIVE); NITRITE, URINE NEGATIVE (NEGATIVE); PH,URINE 5.5 (5.0-8.0); PROTEIN URINE NEGATIVE (NEGATIVE); UROBILINOGEN,URINE 0.2 (0.2-1.0)
[2023-12-16 21:26] LABS: BACTERIA,URINE MODERATE /HPF (None Seen); RBC,URINE 0-3 /HPF (0-3)
[2023-12-17] VITALS: BP_SYST 129; PULSE 92; RESP 18; TEMP 98.6; O2SAT 97
[2023-12-17 07:46] LABS: BASOPHILS # (AUTO) 0.1 K/uL (0.0-0.2); EOSINOPHILS # (AUTO) 0.3 K/uL (0.0-0.4); EOSINOPHILS % (AUTO) 2.5 % (0.0-4.0); HEMATOCRIT 33.9 % (36-48); HEMOGLOBIN 10.7 g/dL (12.0-16.0); LYMPHOCYTES # (AUTO) 3.3 K/uL (1.0-5.5); MEAN CORPUSCULAR HEMOGLOBIN 25 pg (27-31); MEAN CORPUSCULAR HGB CONC 32 % (32-36); MEAN CORPUSCULAR VOLUME 80 fL (79.0-98.0); MONOCYTES # (AUTO) 0.7 K/uL (0.0-1.0); MONOCYTES % (AUTO) 6.3 % (1.7-9.3); NEUTROPHILS % (AUTO) 61.2 % (40.0-70.0); PLATELET COUNT (AUTO) 287 K/uL (130-430); RED BLOOD CELL COUNT(AUTO) 4.26 MIL/uL (4.2-6.2); RED CELL DISTRIBUTION WIDTH 15.3 % (9.0-15.0); WHITE BLOOD COUNT (AUTO) 11.4 K/uL (4.8-10.8)
[2023-12-17 07:52] LABS: ALBUMIN 3.4 g/dL (3.4-4.8); CALCIUM 8.6 mg/dL (8.4-11.0); CREATININE 1.38 mg/dL (0.55-1.30); POTASSIUM 3.5 mmol/L (3.5-5.1); TOTAL BILIRUBIN 0.5 mg/dL (0.0-1.0); TOTAL PROTEIN, SERUM 6.6 g/dL (6.4-8.3)
[2023-12-17 08:00] VITALS: BP_SYST 153; PULSE 81; RESP 18; TEMP 98.9; O2SAT 98
[2023-12-17] MEDS: metFORMIN HCL 500 MG TABLET PO SCH (08:29)
[2023-12-17] MEDS ORDERED: LORazepam 1 MG TABLET PO PRN (10:15)
[2023-12-17 10:56] VITALS: BP_SYST 153; PULSE 81; RESP 18; TEMP 98.9; O2SAT 99
[2023-12-17] MEDS ORDERED: KCL 20 mEq in 100 mL (PREMIX) 100 ML IV ONE (11:00)
[2023-12-17 12:10] VITALS: BP_SYST 142; PULSE 84; RESP 17; TEMP 98.7; O2SAT 98
[2023-12-17] MEDS: POTASSIUM CHLORIDE 20 MEQ TABLET.ER PO ONE (12:15)
[2023-12-17] MEDS: HEPARIN IV FLUSH 300 UNITS/3ML SYR INJ ONE (13:46)
== END 2023-12-17 14:07 | disposition home or self-care (01) | DRG 866 ==
LOC: SED 12:44 → SMU 15:09
PROVIDERS: ADMIT Internal Medicine; ATTEND Internal Medicine
DX: B34.9 Viral infection, unspecified (principal); R65.10 Systemic inflammatory response syndrome (SIRS) of non-infectious origin without acute organ dysfunction; Z68.41 Body mass index [BMI] 40.0-44.9, adult; N15.8 Other specified renal tubulo-interstitial diseases; E87.6 Hypokalemia; Z20.822 Contact with and (suspected) exposure to COVID-19; E66.9 Obesity, unspecified; M79.7 Fibromyalgia; F32.A Depression, unspecified; F41.9 Anxiety disorder, unspecified; J45.909 Unspecified asthma, uncomplicated; E03.9 Hypothyroidism, unspecified; E10.9 Type 1 diabetes mellitus without complications; Z79.899 Other long term (current) drug therapy; Z88.0 Allergy status to penicillin; Z91.018 Allergy to other foods
CPT/HCPCS: 36415; 71045; 80048; 80053; 80076; 81000; 81001; 81015; 82948; 83037; 83605; 83735; 84439; 84443; 84484; 85025; 85610; 85651; 85730; 87040; 87086; 93005; 94760; 96361; 96365; 96375; 99285; J1200; J1642; J1815; J1956; J2270; J2405; J3475; J3480; J3490

== ENCOUNTER 2023-12-22 16:13 | Emergency (ER) | payer OTHER ==
[~2023-12-22] VITALS: Ht 162.6 cm; Wt 104.3 kg
[~2023-12-22 16:13] MED LIST changes: -CYCL10TA24 PO; -DOXY100C PO; -DOXY100C5 PO; -DOXY100T2 PO; -LACT1CAP89 PO; +LIP10 PO; -METR-343 PO; -ONDA4TAB5 PO; -POTA-178 PO; +POTA-198 PO; +SACC250C3 PO
[2023-12-22 16:25] VITALS: BP_SYST 130; PULSE 94; RESP 18; TEMP 98.1; O2SAT 96
[2023-12-22] MEDS: LORATADINE 10 MG TABLET PO ONE (20:21)
[2023-12-22] MEDS: ONDANSETRON HCL 4 MG/2 ML VIAL IVP ONE (20:22)
[2023-12-22 20:23] LABS: BASOPHILS # (AUTO) 0.1 K/uL (0.0-0.2); EOSINOPHILS # (AUTO) 0.3 K/uL (0.0-0.4); EOSINOPHILS % (AUTO) 2.1 % (0.0-4.0); HEMATOCRIT 35.4 % (36-48); HEMOGLOBIN 11.1 g/dL (12.0-16.0); LYMPHOCYTES # (AUTO) 3.4 K/uL (1.0-5.5); LYMPHOCYTES % (AUTO) 26.4 % (20.5-51.5); MEAN CORPUSCULAR HEMOGLOBIN 25 pg (27-31); MEAN CORPUSCULAR HGB CONC 32 % (32-36); MEAN CORPUSCULAR VOLUME 79 fL (79.0-98.0); MONOCYTES # (AUTO) 0.7 K/uL (0.0-1.0); MONOCYTES % (AUTO) 5.4 % (1.7-9.3); NEUTROPHILS # (AUTO) 8.3 K/uL (1.8-7.7); NEUTROPHILS % (AUTO) 65.1 % (40.0-70.0); PLATELET COUNT (AUTO) 342 K/uL (130-430); RED BLOOD CELL COUNT(AUTO) 4.47 MIL/uL (4.2-6.2); RED CELL DISTRIBUTION WIDTH 15.7 % (9.0-15.0); WHITE BLOOD COUNT (AUTO) 12.7 K/uL (4.8-10.8)
[2023-12-22] MEDS: MORPHINE 4 MG INJ. 4 MG/ML VIAL IVP ONE (20:23)
[2023-12-22 20:31] LABS: CALCIUM 8.8 mg/dL (8.4-11.0); CREATININE 1.19 mg/dL (0.55-1.30); POTASSIUM 4.5 mmol/L (3.5-5.1)
[2023-12-22 20:35] LABS: ALBUMIN 3.5 g/dL (3.4-4.8); TOTAL BILIRUBIN 0.6 mg/dL (0.0-1.0)
[2023-12-23] MEDS: MORPHINE 4 MG INJ. 4 MG/ML VIAL IVP ONE (01:04)
[2023-12-23 01:12] VITALS: BP_SYST 122; PULSE 86; RESP 16; TEMP 98.2; O2SAT 97
== END 2023-12-23 01:10 | disposition home or self-care (01) ==
LOC: SED 16:13
DX: R55 Syncope and collapse (principal); R53.1 Weakness; R25.2 Cramp and spasm; E11.9 Type 2 diabetes mellitus without complications; I10 Essential (primary) hypertension; Z88.0 Allergy status to penicillin; Z91.018 Allergy to other foods; Z79.899 Other long term (current) drug therapy
CPT/HCPCS: 99285; 70450; 96374; 71045; 96375; 80053; 83880; 83735; 85025; 85379; 84484; 36415; 93005; 71275; 96376; J2405; J2270 ×2

== ENCOUNTER 2024-01-24 15:43 | Inpatient (IN) | payer OTHER ==
[~2024-01-24] VITALS: Ht 162.6 cm; Wt 108.4 kg
[2024-01-24 15:43] VITALS: BP_SYST 191; PULSE 111; RESP 20; TEMP 99; O2SAT 98
[2024-01-24 17:57] LABS: BASOPHILS # (AUTO) 0.3 K/uL (0.0-0.2); BASOPHILS % (AUTO) 1.4 % (0.0-2.0); EOSINOPHILS # (AUTO) 0.1 K/uL (0.0-0.4); EOSINOPHILS % (AUTO) 0.5 % (0.0-4.0); HEMATOCRIT 35.7 % (36-48); HEMOGLOBIN 11.4 g/dL (12.0-16.0); LYMPHOCYTES # (AUTO) 3.5 K/uL (1.0-5.5); LYMPHOCYTES % (AUTO) 18.5 % (20.5-51.5); MEAN CORPUSCULAR HEMOGLOBIN 25 pg (27-31); MEAN CORPUSCULAR HGB CONC 32 % (32-36); MEAN CORPUSCULAR VOLUME 77 fL (79.0-98.0); MONOCYTES # (AUTO) 1.3 K/uL (0.0-1.0); MONOCYTES % (AUTO) 6.6 % (1.7-9.3); PLATELET COUNT (AUTO) 412 K/uL (130-430); RED BLOOD CELL COUNT(AUTO) 4.66 MIL/uL (4.2-6.2); RED CELL DISTRIBUTION WIDTH 15.7 % (9.0-15.0); WHITE BLOOD COUNT (AUTO) 19.1 K/uL (4.8-10.8)
[2024-01-24 18:14] LABS: ALANINE AMINOTRANSFERASE 17 U/L (12-78); ALBUMIN 3.9 g/dL (3.4-4.8); ANION GAP 11 (5-15); ASPARTATE AMINOTRANSFERASE 13 U/L (10-37); CALCIUM 9.2 mg/dL (8.4-11.0); CARBON DIOXIDE 25 mmol/L (23-29); CHLORIDE 100 mmol/L (98-107); CREATININE 1.39 mg/dL (0.55-1.30); GFR AFRICAN AMERICAN 50 mL/min (>90); GFR NON AFRICAN-AMERICAN 42 mL/min (>90); GLUCOSE 130 mg/dL (74-106); POTASSIUM 4.4 mmol/L (3.5-5.1); SODIUM SERUM 136 mmol/L (136-145); TOTAL BILIRUBIN 0.7 mg/dL (0.0-1.0); TOTAL PROTEIN, SERUM 8.4 g/dL (6.4-8.3); UREA NITROGEN, BLOOD 16 mg/dL (8-21)
[2024-01-24 18:42] LABS: AMYLASE 92 U/L (0-100); BILIRUBIN,DIRECT 0.2 mg/dL (0.0-0.3); LIPASE 25 U/L (16-77)
[2024-01-24] MEDS: DIPHENHYDRAMINE INJ 50 MG/ML VIAL IVP ONE (19:49)
[2024-01-24] MEDS: MORPHINE 4 MG INJ. 4 MG/ML VIAL IVP ONE (19:49)
[2024-01-24] MEDS: ONDANSETRON HCL 4 MG/2 ML VIAL IVP ONE (19:50)
[2024-01-24] MEDS ORDERED: MAGNESIUM SULFATE 1 GM/2 ML VIAL ONE (21:19)
[2024-01-24] MEDS: MAGNESIUM SULFATE 1 GM in NS 100 ML IV ONE (21:32)
[2024-01-24] MEDS: MORPHINE 2 MG/ML INJ. SYRINGE IVP ONE (21:35)
[2024-01-24 21:51] LABS: INR 1.1 (0.8-1.2); PROTHROMBIN TIME 10.9 SECS (9.5-12.5)
[2024-01-24] MEDS ORDERED: cefTRIAXone 1 GM IVPB PREMIX 50 ML IV ONE (22:15)
[2024-01-24] MEDS: NACL 0.9% 1,000 ML IV ONE (22:16)
[2024-01-24] MEDS: cefTRIAXone 1 GM IVPB PREMIX 50 ML IV ONE (23:08)
[2024-01-24] MEDS: metroNIDAZOLE 500 mg/NS 100 ML IV ONE (23:14)
[2024-01-24] MEDS: LR 1,000 ML IV ONE (23:35)
[2024-01-25] VITALS (8 sets, daily range): BP systolic 118–191; PULSE 74–111; RESP 18–20; TEMP 97.6–98.6; O2SAT 97–99
[2024-01-25] MEDS ORDERED: LORazepam 1 MG TABLET PO PRN (00:15)
[2024-01-25] MEDS ORDERED: COLCHICINE 0.6 MG TABLET PO PRN (00:15)
[2024-01-25] MEDS ORDERED: PANTOPRAZOLE SODIUM 40 MG TAB PO PRN (00:15)
[2024-01-25] MEDS ORDERED: IPRATROPIUM/ALBUTEROL SULFATE 120 PUFFS/4 GM INH INH PRN (00:15)
[2024-01-25] MEDS ORDERED: IPRATROPIUM/ALBUTEROL SULFATE 3 ML AMPUL.NEB (DUONEB) INH PRN (00:45)
[2024-01-25] MEDS: DIPHENHYDRAMINE INJ 50 MG/ML VIAL IVP PRN (01:12)
[2024-01-25] MEDS: MORPHINE 4 MG INJ. 4 MG/ML VIAL IVP PRN (01:14)
[2024-01-25] MEDS ORDERED: MAGNESIUM SULFATE 50 ML IV ONE (04:51)
[2024-01-25] MEDS: MAGNESIUM SULFATE 50 ML IV ONE (05:00)
[2024-01-25 05:32] LABS: BILIRUBIN,URINE NEGATIVE (NEGATIVE); BLOOD, URINE NEGATIVE (NEGATIVE); CLARITY/URINE CLEAR (CLEAR); COLOR,URINE YELLOW (YELLOW); GLUCOSE,URINE NEGATIVE (NEGATIVE); KETONES,URINE NEGATIVE (NEGATIVE); LEUKOCYTE ESTERASE ,URINE NEGATIVE (NEGATIVE); NITRITE, URINE NEGATIVE (NEGATIVE); PROTEIN URINE NEGATIVE (NEGATIVE); UROBILINOGEN,URINE 0.2 (0.2-1.0)
[2024-01-25] MEDS: ATORVASTATIN 10 MG TABLET PO SCH (08:37)
[2024-01-25] MEDS: CHOLECALCIFEROL (VITAMIN D-3) 400 UNIT TABLET PO SCH (08:37)
[2024-01-25] MEDS: aMILoride HCL 5 MG TABLET PO SCH (08:37)
[2024-01-25] MEDS: LACTOBACILLUS RHAMNOSUS GG 1 CAP CAPSULE PO SCH (08:37)
[2024-01-25] MEDS: POTASSIUM CHLORIDE 20 MEQ TABLET.ER PO SCH (08:37)
[2024-01-25] MEDS: SPIRONOLACTONE 50 MG TABLET (ALDACTONE) PO SCH (08:38)
[2024-01-25] MEDS: DULoxetine HCL 30 MG CAPSULE.DR (CYMBALTA) PO SCH (08:38)
[2024-01-25] MEDS: MORPHINE SULFATE 30 MG Immediate Release TABLET PO SCH (08:39)
[2024-01-25] MEDS ORDERED: SACCHAROMYCES BOULARDII 250 MG CAPSULE (FLORASTOR) PO SCH (09:00)
[2024-01-26 00:15] VITALS: BP_SYST 128; PULSE 89; RESP 18; TEMP 97.9; O2SAT 99
[2024-01-26 04:24] LABS: BASOPHILS # (AUTO) 0.2 K/uL (0.0-0.2); BASOPHILS % (AUTO) 1.2 % (0.0-2.0); EOSINOPHILS # (AUTO) 0.3 K/uL (0.0-0.4); EOSINOPHILS % (AUTO) 2.3 % (0.0-4.0); HEMOGLOBIN 9.5 g/dL (12.0-16.0); LYMPHOCYTES # (AUTO) 2.6 K/uL (1.0-5.5); LYMPHOCYTES % (AUTO) 21.3 % (20.5-51.5); MEAN CORPUSCULAR HEMOGLOBIN 24 pg (27-31); MEAN CORPUSCULAR HGB CONC 32 % (32-36); MEAN CORPUSCULAR VOLUME 77 fL (79.0-98.0); MONOCYTES # (AUTO) 0.7 K/uL (0.0-1.0); MONOCYTES % (AUTO) 5.6 % (1.7-9.3); NEUTROPHILS # (AUTO) 8.6 K/uL (1.8-7.7); NEUTROPHILS % (AUTO) 69.6 % (40.0-70.0); PLATELET COUNT (AUTO) 327 K/uL (130-430); RED CELL DISTRIBUTION WIDTH 15.5 % (9.0-15.0); WHITE BLOOD COUNT (AUTO) 12.3 K/uL (4.8-10.8)
[2024-01-26 04:29] LABS: HEMOGLOBIN A1C 7.2 % (<5.7)
[2024-01-26 05:04] LABS: ALBUMIN 3.4 g/dL (3.4-4.8); CALCIUM 8.9 mg/dL (8.4-11.0); CREATININE 1.06 mg/dL (0.55-1.30); PHOSPHORUS 4.6 mg/dL (2.7-4.5); POTASSIUM 4.3 mmol/L (3.5-5.1); TOTAL BILIRUBIN 0.7 mg/dL (0.0-1.0); TOTAL PROTEIN, SERUM 6.3 g/dL (6.4-8.3)
[2024-01-26 08:05] VITALS: BP_SYST 130; PULSE 88; RESP 19; TEMP 98.1; O2SAT 98
[2024-01-26 08:10] VITALS: O2SAT 98
[2024-01-26 12:05] VITALS: BP_SYST 128; PULSE 78; RESP 18; TEMP 98.6; O2SAT 99
[2024-01-26 16:15] VITALS: BP_SYST 130; PULSE 77; RESP 19; TEMP 98.2; O2SAT 98
[2024-01-26] MEDS ORDERED: MAGNESIUM SULFATE 4 GM in D5W 250 ML IV ONE (17:00)
[2024-01-26] MEDS: MAGNESIUM SULFATE IN WATER 100 ML IV ONE (18:16)
[2024-01-26] MEDS: TEMAZEPAM 15 MG CAPSULE PO PRN (21:42)
[2024-01-27] VITALS (7 sets, daily range): BP systolic 96–132; PULSE 78–87; RESP 16–18; TEMP 97.2–98.2; O2SAT 59–100
[2024-01-27 06:24] LABS: BASOPHILS # (AUTO) 0.1 K/uL (0.0-0.2); BASOPHILS % (AUTO) 1.3 % (0.0-2.0); EOSINOPHILS # (AUTO) 0.2 K/uL (0.0-0.4); EOSINOPHILS % (AUTO) 2.3 % (0.0-4.0); HEMATOCRIT 29.6 % (36-48); HEMOGLOBIN 9.4 g/dL (12.0-16.0); LYMPHOCYTES # (AUTO) 2.2 K/uL (1.0-5.5); MEAN CORPUSCULAR HEMOGLOBIN 25 pg (27-31); MEAN CORPUSCULAR HGB CONC 32 % (32-36); MEAN CORPUSCULAR VOLUME 78 fL (79.0-98.0); MONOCYTES # (AUTO) 0.6 K/uL (0.0-1.0); MONOCYTES % (AUTO) 6.3 % (1.7-9.3); NEUTROPHILS # (AUTO) 6.9 K/uL (1.8-7.7); NEUTROPHILS % (AUTO) 68.1 % (40.0-70.0); PLATELET COUNT (AUTO) 315 K/uL (130-430); RED BLOOD CELL COUNT(AUTO) 3.82 MIL/uL (4.2-6.2); RED CELL DISTRIBUTION WIDTH 15.8 % (9.0-15.0); WHITE BLOOD COUNT (AUTO) 10.2 K/uL (4.8-10.8)
[2024-01-27 06:47] LABS: CALCIUM 8.4 mg/dL (8.4-11.0); CREATININE 0.96 mg/dL (0.55-1.30); POTASSIUM 3.6 mmol/L (3.5-5.1)
[2024-01-27] MEDS: MAGNESIUM SULFATE 50 ML IV ONE (16:04)
[2024-01-27] MEDS: KCL 40 mEq in 100 mL (PREMIX) 100 ML IV ONE (17:54)
== END 2024-01-27 22:30 | disposition home or self-care (01) | DRG 640 ==
LOC: SED 15:43 → SMU 22:06
PROVIDERS: ADMIT Internal Medicine; ATTEND Internal Medicine
DX: E86.0 Dehydration (principal); N17.0 Acute kidney failure with tubular necrosis; Z68.41 Body mass index [BMI] 40.0-44.9, adult; R65.10 Systemic inflammatory response syndrome (SIRS) of non-infectious origin without acute organ dysfunction; K52.9 Noninfective gastroenteritis and colitis, unspecified; E66.9 Obesity, unspecified; F32.A Depression, unspecified; F41.9 Anxiety disorder, unspecified; G89.4 Chronic pain syndrome; E03.9 Hypothyroidism, unspecified; E11.9 Type 2 diabetes mellitus without complications; J45.909 Unspecified asthma, uncomplicated; M79.7 Fibromyalgia; Z79.899 Other long term (current) drug therapy
CPT/HCPCS: 36415; 80048; 80053; 80076; 81001; 81003; 82150; 82948; 83037; 83605; 83690; 83735; 84100; 84484; 85025; 85610; 85730; 87040; 94070; 99285; J0696; J1200; J2270; J2274; J2405; J3475; J3480; J3490; J7060